=== PATIENT | male | born 1975 | race Caucasian/White ===

== ENCOUNTER 2020-02-10 14:24 | Emergency (ER) | payer MEDICAID, SELFPAY ==
[2020-02-10 14:51] VITALS: BP 183/95; PULSE 108; RESP 20; TEMP 38.8; O2SAT 95; BMI 36.9
--- NOTE | 2020-02-10 15:08 | ED_ITS ---
HPI - General Adult General Chief complaint: General Medical Stated complaint: covid testing [id number] Time Seen by Provider: 02/10/20 15:08 Source: patient Mode of arrival: ambulatory Limitations: no limitations History of Present Illness HPI narrative: Patient is concerned about COVID now feeling worse so he decided to come complaint: bodyaches cough Onset (ago): day(s) (4) Severity: moderate Quality: other (dizziness) Pain Consistency: constant Relieving factors: medication Associated symptoms: cough and fever/chills Related Data Previous Rx's Medication Instructions Recorded azithromycin 250 mg PO DAILY 5 Days #5 tab 02/10/20 Allergies Allergy/AdvReac Type Severity Reaction Status Date / Time SEAFOOD Allergy Severe ANAPHYLAXIS Uncoded 02/10/20 14:56 TUNA FISH Allergy Severe ANAPHYLAXIS, Uncoded 02/10/20 14:56 AIR BORN REACTION PER PT. Review of Systems Constitutional: Constitutional: Reports no additional constitutional complaints Eyes: Eyes: Reports no additional eye complaints ENT: Denies dizziness Cardiovascular: Cardiovascular: Reports no additional cardiovascular complaints Respiratory: Respiratory: Reports as per HPI Gastrointestinal: Gastrointestinal: Reports no additional gastrointestinal complaints Musculoskeletal: Musculoskeletal: Reports no additional musculoskeletal complaints Integumentary/Breasts: Skin/Breast: Denies rash Neurologic: Reports system reviewed and no additional complaints, except as documented, Denies dizziness and Denies Sensory deficit (Neuro) Psychiatric: Psychiatric: Denies anxiety PMF Past Medical History Medical History (Updated 02/10/20 @ 16:04 by Durga Conn MD) Asthma Diabetes Social History Social History Smoking Status: Current every day smoker Smoked in Last 30 Days: Yes Use of substances other than those prescribed or required for medical reasons: No Advance Directives: No Advance Directives Information Provided: Yes Physical Exam Vital Signs: Vital Signs: Vital Signs Temp Pulse Resp BP Pulse Ox 02/10/20 16:34 99.0 F 114 H 16 112/83 97 02/10/20 14:51 102 F H 108 H 20 183/95 H 95 Body Mass Index 36.9 Const: General: healthy appearing Nutritional Appearance: overweight Orientation/consciousness: oriented to person and patient oriented x3 Limitations: no limitations HENMT: Head: Yes normal to inspection Ears: external ears normal General nose exam: Normal external nose present Mouth: other (slight erythema to pharynx) Throat: Yes posterior oropharynx abnormal Eyes: General: appearance normal, both eyes and all related structures Neck: Other: supple Neck: Yes normal visual inspection Chest: Chest palpation & inspection: normal inspection of the chest Resp: Auscultation: clear to auscultation bilaterally Cardio: Jugular venous distension: no JVD Rate: regular rate Rhythm: regular rhythm Heart sounds: S1 normal heart sound present and S2 normal heart sound present GI: Inspection: Yes normal to inspection Palpation (GI): Soft to palpation, nontender and No hepatosplenomegaly present Auscultation: normal bowel sounds : General: Yes no CVA tenderness Back/Spine/Pelvis: Back: no CVA tenderness Skin: General skin exam: no rashes or lesions noted Neuro: General: oriented to person and patient oriented x3 Cranial nerves: Yes CN's II-XII intact bilaterally Motor exam (neuro): 5/5 motor strength present throughout Sensory Exam: No Sensory deficit (Neuro) Extrem: General: Yes normal to inspection Psych: Appearance: grossly normal Course Course Course Narrative: patient looks better will dc home Medical Decision Making [facility] Narrative Medical decision making narrative: Patient with right upper lobe consolidation will treat with azithromax Differential Diagnosis Differential Diagnosis: CoVID, pneumonia, viral illness Lab Data Labs: Lab Results 02/10/20 Range/Units 16:30 POC Glucose 115 (60-115) mg/dL Imaging Data Chest x-ray: Radiologist's impression: right upper lobe infiltrate Discharge Plan Discharge Clinical Impression: Pneumonia Qualifiers: Pneumonia type: due to unspecified organism Laterality: right Lung location: upper lobe of lung Qualified Code(s): J18.9 - Pneumonia, unspecified organism Patient Disposition: Home, Self-Care Instructions: Pneumonia (ED) Additional Instructions: tylenol and motrin should be alternating every 3 hours for fever Prescriptions: New azithromycin 250 mg tablet 250 mg PO DAILY 5 Days Qty: 5 RF: 0
--- NOTE | 2020-02-10 15:11 | XR_ITS ---
EXAMINATION: XR CHEST CLINICAL INFORMATION: Cough and fever COMPARISON: 07/02/2018 TECHNIQUE: Frontal view of the chest was obtained. FINDINGS: Radiopaque partially cannulated screw within the left clavicle. Elevated right hemidiaphragm. There is a right suprahilar airspace opacity. No pleural effusion or pneumothorax. The cardiomediastinal silhouette is within normal limits. No osseous abnormality. IMPRESSION: Right suprahilar airspace opacity is suspicious for pneumonia. Follow-up to resolution.
[2020-02-10] MEDS: Ibuprofen 800 MG TABLET PO (15:24)
[2020-02-10 16:34] VITALS: BP 112/83; PULSE 114; RESP 16; TEMP 37.2; O2SAT 97
[2020-02-10 16:40] LABS: Glucose, Whole Blood 115 mg/dL (60-115)
[2020-02-10] MEDS: Azithromycin 500 MG TABLET PO (16:59)
== END 2020-02-10 17:11 | disposition home or self-care (01) ==
PROVIDERS: Emergency Provider Emergency Medicine; PCP Family Medicine
DX: J18.9 Pneumonia, unspecified organism (principal); Z20.828 Contact with and (suspected) exposure to other viral communicable diseases; E11.9 Type 2 diabetes mellitus without complications; J45.909 Unspecified asthma, uncomplicated; F17.200 Nicotine dependence, unspecified, uncomplicated
CPT/HCPCS: 71045; 82947; 87635; 99283; 99284

== ENCOUNTER 2020-08-03 15:32 | Outpatient (REF) | payer MEDICAID, SELFPAY | END 2020-08-03 15:33 | disposition home or self-care (01) | LOC: HO.LAB 15:32 | PROVIDERS: Visit Provider Internal Medicine | DX: Z20.822 Contact with and (suspected) exposure to COVID-19 (principal) | CPT/HCPCS: C9803; U0003; U0005 ==

== ENCOUNTER 2020-10-01 12:18 | Emergency (ER) | payer MEDICAID, SELFPAY ==
--- NOTE | ~2020-10-01 | XR_ITS ---
EXAMINATION: XR KNEE, RIGHT CLINICAL INFORMATION: No trauma. Pain COMPARISON: Right knee 12/16/2014 TECHNIQUE: Four views of the right knee. FINDINGS: The tricompartment joint space is maintained normal. No visible acute fracture, dislocation or subluxation seen. The soft tissues are normal. XR/XR knee RT 2V IMPRESSION: Unremarkable right knee exam.
--- NOTE | ~2020-10-01 | US_ITS ---
EXAMINATION: US VENOUS ULTRASOUND WITH DOPPLER LOWER EXTREMITY, RIGHT CLINICAL INFORMATION: Pain and swelling COMPARISON: None TECHNIQUE: Ultrasound of the deep veins is performed from the hip to the calf with compression sonography and color and pulse Doppler assessment. Spectral analysis with color-flow imaging is performed. FINDINGS: There is normal venous compression and respiratory variation and augmented flow. The visualized common femoral vein, superficial femoral vein, profunda femoral vein, popliteal vein, and the trifurcation region shows no evidence of deep venous thrombosis. There is no significant popliteal fossa cyst. If the patient's symptoms persist, followup ultrasound in 5 days 7 days might be of value to exclude proximal propagation from a non-visualized calf vein. US/US venous duplex LE RT IMPRESSION: No DVT demonstrated in the right lower extremity.
[2020-10-01 12:41] VITALS: BP 163/87; PULSE 100; RESP 20; TEMP 36.5; O2SAT 95; BMI 39.0
--- NOTE | 2020-10-01 14:14 | ED_ITS ---
HPI - Extremity Problem General Chief complaint: Extremity Problem Stated complaint: right leg swollen Time Seen by Provider: 10/01/20 14:02 Source: patient Mode of arrival: ambulatory Limitations: no limitations History of Present Illness HPI Narrative: 44-year-old male previously healthy here with complaints of right leg swelling and pain. Patient tells me he has noticed for the last 2 days that he has had increasing pain over the knee and over the right calf with increasing swelling. He denies any injury or trauma. He tells me that he has had issues with his left knee for many years and because of this he feels like he has compensated with bearing more weight on his right knee. He denies any fevers, chills, redness. MD Complaint: extremity pain and extremity swelling Related Data Previous Rx's Medication Instructions Recorded azithromycin 250 mg PO DAILY 5 Days #5 tab 02/10/20 cyclobenzaprine 10 mg PO TID PRN #10 tab 10/01/20 naproxen 500 mg PO BID PRN #20 tab 10/01/20 Allergies Allergy/AdvReac Type Severity Reaction Status Date / Time SEAFOOD Allergy Severe ANAPHYLAXIS Uncoded 02/10/20 14:56 TUNA FISH Allergy Severe ANAPHYLAXIS, Uncoded 02/10/20 14:56 AIR BORN REACTION PER PT. Review of Systems 2 Review of Systems: Yes all other systems are reviewed and are negative Constitutional: Constitutional: Reports no additional constitutional complaints, Denies body ache(s), Denies chills, Denies fever(s), Denies headache(s) and Denies weakness Eyes: Eyes: Reports no additional eye complaints and Denies change in vision ENT: Reports system reviewed and no additional complaints, except as doc umented, Denies dizziness, Denies headache(s), Denies nasal congestion, Denies nasal discharge and Denies neck pain Cardiovascular: Cardiovascular: Reports no additional cardiovascular complaints, Denies chest pain, Reports leg edema and Denies dyspnea Respiratory: Respiratory: Reports no additional respiratory complaints, Denies cough and Denies dyspnea Gastrointestinal: Gastrointestinal: Reports no additional gastrointestinal complaints, Denies abdominal pain, Denies diarrhea, Denies nausea and Denies vomiting Genitourinary: Genitourinary: Denies urinary incontinence Musculoskeletal: Musculoskeletal: Reports no additional musculoskeletal complaints, Denies back pain, Reports arthralgias, Reports joint swelling, Denies neck pain, Denies numbness and Denies tingling Integumentary/Breasts: Skin/Breast: Reports system reviewed and no additional complaints, except as docu and Denies rash Neurologic: Reports system reviewed and no additional complaints, except as documented, Denies Abnormal speech present, Denies dizziness, Denies headache(s), Denies numbness, Denies tingling and Denies weakness PMFSH Past Medical History Attestation statement: The following information was validated with the patient. Source: old records reviewed and nursing notes reviewed Medical History Asthma Diabetes Social History Social History Advance Directives: Yes Advance Directives Information Provided: Yes Advance Directives on File: No Physical Exam Vital Signs: Vital Signs: Last Vital Signs Temp 97.7 F 10/01/20 12:41 Pulse 100 10/01/20 12:41 Resp 20 10/01/20 12:41 BP 163/87 H 10/01/20 12:41 Pulse Ox 95 10/01/20 12:41 Body Mass Index 39.0 Const: General: cooperative, healthy appearing, comfortable and no acute distress Orientation/consciousness: patient oriented x3 Limitations: no limitations HENMT: Head: Yes normal to inspection Ears: hearing grossly normal bilaterally General nose exam: Normal external nose present Face and sinus: Yes normal facial exam Mouth: Normal oral and palatal mucosa present Throat: Yes posterior oropharynx normal Eyes: General: appearance normal, both eyes and all related structures Pupils: Equal, round and reactive pupils present Neck: Neck: Yes normal visual inspection Chest: Chest palpation & inspection: normal inspection of the chest Resp: Effort & Inspection: normal respiratory effort Auscultation: clear to auscultation bilaterally Cardio: Rate: regular rate Rhythm: regular rhythm Peripheral pulses: Peripheral pulses 2+ throughout GI: Inspection: Yes normal to inspection Palpation (GI): Soft to palpation and nontender Auscultation: normal bowel sounds Back/Spine/Pelvis: Thoracic/Lumbar Spine: thoracic and lumbar spine normal to inspection Skin: General skin exam: no rashes or lesions noted Neuro: General: patient oriented x3, no focal motor deficits and normal sensation to monofilament Cranial nerves: Yes Equal, round and reactive pupils present Cognition (Neuro): normal cognition Speech: No Abnormal speech present Gait exam (Neuro): Normal gait present Motor exam (neuro): 5/5 motor strength present throughout Extrem: Other: Patient has mild 1+ nonpitting edema to the right lower extremi ty. There is some tenderness to the right posterior calf. There is also tenderness to the right anterior knee. No appreciated erythema or warmth to the right lower extremity. Pain with flexion and extension of the knee but the patient is able to do this independently. No appreciable ligamental laxity. No posterior knee pain Course Course Course Narrative: 44-year-old male here with right lower extremity swelling and pain for the last 2 days with no reports of injury or trauma. Will need ultrasound to rule out DVT, x-ray of the right knee, labs 1600-ultrasound negative for DVT. Labs are unremarkable. X-ray of the right knee shows no bony abnormality. Patient tells me that he has had chronic right knee pain for quite some time as he compensates with the right leg due to left knee pain which is chronic. He has had several ACL repairs in the right knee and has had multiple sprains. We discussed that he may have restrained his knee and that some of the swelling may be dependent edema. Instructed him on rice, limiting weight-bearing, following up with orthopedics as needed. Reviewed worrisome signs and symptoms and when to return to the emergency department. Comfortable discharge home Procedures Procedure Narrative Procedure Narrative: Drake wrap right knee Crutches MDM - Extremity (Nontraumatic) MDM Narrative Medical decision making narrative: DVT, knee ligament sprain, cellulitis Medical Records Attestation: I reviewed the patient's medical records. Lab Data Attestation: I reviewed the patient's lab results. Result diagrams: 10/01/20 15:07 10/01/20 15:07 Labs: Lab Results 10/01/20 10/01/20 10/01/20 Range/Units 15:07 15:07 15:07 WBC 9.5 (4.8-10.8) X10*3/uL RBC 4.53 L (4.60-5.80) X10*6/uL Hgb 12.8 L (14.0-18.0) g/dl Hct 39.3 L (42-52) % MCV 86.8 (80-98) fL MCH 28.3 (27.0-33.0) pg MCHC 32.6 (31.0-36.0) g/dl RDW 13.4 (11.0-16.0) % Plt Count 325 (160-400) X10*3/uL MPV 9.2 L (9.4-12.4) fL Immature Gran % (Auto) 0.6 H (0.0-0.4) % Neut % (Auto) 64.7 (45-73) % Lymph % (Auto) 20.4 (20-40) % Taney % (Auto) 7.9 (2-11) % Eos % (Auto) 6.0 H (0-4) % Baso % (Auto) 0.4 (0-2) % Lymph # (Auto) 2.0 (1.2-4.9) X10*3/uL Taney # (Auto) 0.8 (0.1-1.2) X10*3/uL Eos # (Auto) 0.6 H (0.0-0.4) X10*3/uL Baso # (Auto) 0.0 (0.0-0.2) X10*3/uL Abs Immat Gran (auto) 0.06 H (0.00-0.03) X10*3/uL Absolute Neuts (auto) 6.2 (2.0-8.3) X10*3/uL Absolute Nucleated RBC 0.000 (0.0-0.012) X10*3/uL Nucleated RBC % (auto) 0.0 (0.0-0.2) /100WBC PT 11.2 (10.8-13.0) SEC INR 0.9 (0.9-1.1) Sodium 138 (135-145) mmol/L Potassium 4.2 (3.3-5.1) mmol/L Chloride 107 (96-108) mmol/L Carbon Dioxide 23 (22-29) mmol/L Anion Gap 12 (12-20) BUN 9 (9-16) mg/dL Creatinine 0.77 (0.5-1.4) mg/dL Estim Creat Clear Calc 167.9 Estimated GFR > 60 Random Glucose 86 (60-115) mg/dL Calcium 9.3 (8.4-10.2) mg/dL Total Bilirubin 0.5 (0.0-1.0) mg/dL Direct Bilirubin < 0.2 (0.0-0.5) mg/dL AST 29 (5-37) U/L ALT 36 (0-40) U/L Alkaline Phosphatase 85 (39-117) U/L Total Protein 7.3 (6.5-8.0) g/dL Albumin 4.1 (3.5-5.0) g/dL Imaging Data right knee xray: Attestation: I personally reviewed and interpreted this imaging study as follows: Radiologist's impression: EXAMINATION: XR KNEE, RIGHT CLINICAL INFORMATION: No trauma. Pain COMPARISON: Right knee 12/16/2014 TECHNIQUE: Four views of the right knee. FINDINGS: The tricompartment joint space is maintained normal. No visible acute fracture, dislocation or subluxation seen. The soft tissues are normal. XR/XR knee RT 2V IMPRESSION: Unremarkable right knee exam. Venous US: Attestation: I personally reviewed and interpreted this imaging study as follows: Radiologist's impression: [address] [id number] ReportSigned Patient: Dejah Rivas#: [id number]: 1975Acct:[id number]/Sex: 44 / MADM Date: 10/01/20Loc: EDMichael Dr: Ordering Physician: KELSY ANGELES NP Date of Service: 10/01/20 Procedure(s): US venous duplex LE RT Accession Number(s): [id number] cc: KELSY ANGELES NP~ EXAMINATION: US VENOUS ULTRASOUND WITH DOPPLER LOWER EXTREMITY, RIGHT CLINICAL INFORMATION: Pain and swelling COMPARISON: None TECHNIQUE: Ultrasound of the deep veins is performed from the hip to the calf with compression sonography and color and pulse Doppler assessment. Spectral analysis with color-flow imaging is performed. FINDINGS: There is normal venous compression and respiratory variation and augmented flow. The visualized common femoral vein, superficial femoral vein, profunda femoral vein, popliteal vein, and the trifurcation region shows no evidence of deep venous thrombosis. There is no significant popliteal fossa cyst. If the patient's symptoms persist, followup ultrasound in 5 days 7 days might be of value to exclude proximal propagation from a non-visualized calf vein. US/US venous duplex LE RT IMPRESSION: No DVT demonstrated in the right lower extremity. Discharge Plan Discharge Clinical Impression: Lower extremity edema Right knee sprain Qualifiers: Encounter type: initial encounter Patient Disposition: Home, Self-Care Instructions: Knee Sprain (ED), Leg Edema (ED), Knee Pain (ED) Additional Instructions: Your ultrasound showed no evidence of a blood clot Your lab work looks good Your x-ray shows no bony abnormality. However based on your exam you likely have a ligamental sprain. We recommend icing this. Applying an Drake wrap for compression. Crutches to limit weight-bearing for few days. Prescriptions: New cyclobenzaprine 10 mg tablet 10 mg PO TID PRN (Reason: muscle spasm) Qty: 10 RF: 0 naproxen 500 mg tablet 500 mg PO BID PRN (Reason: pain) Qty: 20 RF: 0 No Action azithromycin 250 mg tablet 250 mg PO DAILY 5 Days Qty: 5 RF: 0 Referrals: Allyssa Carnes MD [Physician] - 2 days
[2020-10-01 15:14] LABS: MANUAL DIFF FLAG NO
[2020-10-01 15:16] LABS: Basophils Percent Auto 0.4 % (0-2); Eosinophils Absolute Auto 0.6 X10*3/uL (0.0-0.4); Hematocrit 39.3 % (42-52); Hemoglobin 12.8 g/dl (14.0-18.0); Imm Gran Abs Auto 0.06 X10*3/uL (0.00-0.03); Imm Gran Pct Auto 0.6 % (0.0-0.4); Lymphocytes Percent Auto 20.4 % (20-40); Mean Corpuscular HGB Conc 32.6 g/dl (31.0-36.0); Mean Corpuscular Hemoglobin 28.3 pg (27.0-33.0); Mean Corpuscular Volume 86.8 fL (80-98); Mean Platelet Volume 9.2 fL (9.4-12.4); Monocytes Absolute Auto 0.8 X10*3/uL (0.1-1.2); Monocytes Percent Auto 7.9 % (2-11); Neutrophils Absolute Auto 6.2 X10*3/uL (2.0-8.3); Neutrophils Percent Auto 64.7 % (45-73); Platelet Count 325 X10*3/uL (160-400); Red Blood Count 4.53 X10*6/uL (4.60-5.80); Red Cell Distribution Width 13.4 % (11.0-16.0); White Blood Count 9.5 X10*3/uL (4.8-10.8)
[2020-10-01 15:21] LABS: INTERNATIONAL NORM RATIO 0.9 (0.9-1.1); Prothrombin Time 11.2 SEC (10.8-13.0)
[2020-10-01] MEDS: Ketorolac Tromethamine 30 MG/ML VIAL IVPUSH (15:36)
[2020-10-01 15:44] LABS: Alanine Aminotransferase 36 U/L (0-40); Albumin Level 4.1 g/dL (3.5-5.0); Alkaline Phosphatase 85 U/L (39-117); Anion Gap 12 (12-20); Aspartate Amino Transferase 29 U/L (5-37); Bilirubin Direct < 0.2 mg/dL (0.0-0.5); Bilirubin Total 0.5 mg/dL (0.0-1.0); Blood Urea Nitrogen 9 mg/dL (9-16); Calcium 9.3 mg/dL (8.4-10.2); Carbon Dioxide 23 mmol/L (22-29); Chloride 107 mmol/L (96-108); Creatinine Clr Calc Pharmacy 167.9; Estimated Glomerular Filt Rate > 60; Glucose Random 86 mg/dL (60-115); Potassium 4.2 mmol/L (3.3-5.1); Sodium 138 mmol/L (135-145); Total Protein 7.3 g/dL (6.5-8.0)
[2020-10-01 16:39] VITALS: BP 162/92; PULSE 95; RESP 16; TEMP 36.3; O2SAT 100
== END 2020-10-01 16:41 | disposition home or self-care (01) ==
PROVIDERS: Nurse Practitioner Family; Emergency Provider Emergency Medicine Emergency Medical Services
DX: S83.90XA Sprain of unspecified site of unspecified knee, initial encounter (principal); X58.XXXA Exposure to other specified factors, initial encounter; R22.42 Localized swelling, mass and lump, left lower limb; M79.661 Pain in right lower leg; M25.561 Pain in right knee; G89.29 Other chronic pain; M25.562 Pain in left knee; E11.9 Type 2 diabetes mellitus without complications; Y93.9 Activity, unspecified; Y92.9 Unspecified place or not applicable; Y99.9 Unspecified external cause status
CPT/HCPCS: 36415; 73560; 80048; 80076; 85025; 85610; 93971; 96374; 99284; J1885

== ENCOUNTER 2020-10-06 08:20 | Outpatient (REF) | payer MEDICAID, SELFPAY | END 2020-10-06 08:21 | disposition home or self-care (01) | LOC: HO.HOSX 08:20 | PROVIDERS: Visit Provider Physician Assistant | DX: M25.561 Pain in right knee (principal); R22.9 Localized swelling, mass and lump, unspecified | CPT/HCPCS: 99202; J1040 ==

== ENCOUNTER 2020-10-26 13:51 | Outpatient (RCR) | payer MEDICAID, SELFPAY ==
--- NOTE | 2020-10-26 15:15 | MHC.PT.EP ---
[facility] [place] Office [place] Office [place] Office [address] Cynthia Price [address] [phone] F: [phone] F: [phone] F: [phone] F: [phone] Physical Therapy Plan of Care Date of Evaluation: Date of Surgery: Diagnosis: pain in R knee Assessment: 45 y/o male referred to PT with pain in R knee. Pt reports pain and difficulty with walking > 5 min, standing, stairs, and lifting. Examination shows decreased R knee/hip/core strength, lateral patella tilt, increased swelling in R LE around knee joint line and distal leg, and TTP pes anserine. S/s consistent with overuse injury of HS and hip adductors. Recommend PT 2x/week for 5 weeks to address impairments, implement HEP and optimize functional mobility. Frequency and Duration: The patient will be seen 2x/week for 5 weeks Short Term Goals: 2 weeks: 1. I with HEP 2. Pt will demonstrate increase in HS strength B by 1 MMT score Snf Goals: 4 weeks: 1. I with HEP and self-management of sx 2. Pt will be able to ambulate >45 min with <3/10 pain 3. Pt will be able to ascend and descend a flight of stairs with <3/10 pain Treatment Plan: Modalities to reduce pain, spasms and effusion. Manual therapy to restore motion and function. Therapeutic exercise to improve strength and flexibility. Neuromuscular re-education for posture and balance. Therapeutic activities to return to functional activities of daily living. Electronically signed by: Christy Richards PT Please sign and return to therapist. Thank you for your referral.
--- NOTE | 2020-11-28 16:07 | MHC.PT.DC ---
[facility] [place] Office [place] Office [place] Office [address] Cynthia Price [address] [facility] [phone] F: [phone] F: [phone] F: [phone] F: [phone] Physical Therapy Discharge Report Diagnosis: pain in R knee Date of Surgery: Date of Evaluation: 10/26/20 Date of Discharge: 11/28/20 Treatments to Date: 1 Cancellations to Date: 4 No Shows to Date: 4 Discharge Status: Visit Non-compliance Discharge Summary: D/c secondary to noncompliance Electronically signed by: Christy Richards PT Please sign and return to therapist. Thank you for your referral.
== END 2020-11-28 16:07 | disposition home or self-care (01) ==
LOC: HO.PT 13:51
PROVIDERS: PCP Family Medicine; Visit Provider Physician Assistant
DX: M25.561 Pain in right knee (principal)
CPT/HCPCS: 97140; 97161

== ENCOUNTER 2021-09-06 10:42 | Emergency (ER) | payer MEDICAID, SELFPAY ==
--- NOTE | ~2021-09-06 | XR_ITS ---
EXAMINATION: XR ELBOW, LEFT CLINICAL INFORMATION: Left elbow pain COMPARISON: None TECHNIQUE: AP, lateral, and oblique views of the left elbow. FINDINGS: The bones and soft tissues are normal. No fracture or joint effusion. Alignment is anatomic. Joint spaces are maintained. XR/XR elbow LT 2V IMPRESSION: Normal left elbow.
[2021-09-06 11:54] VITALS: BP 153/83; PULSE 100; RESP 20; TEMP 36.6; O2SAT 97; BMI 38.9
--- NOTE | 2021-09-06 13:33 | ED_ITS ---
HPI - Extremity Problem General Chief complaint: Extremity Injury, Upper Stated complaint: left elbow injury Time Seen by Provider: 09/06/21 13:31 Source: patient Mode of arrival: ambulatory Limitations: no limitations History of Present Illness HPI Narrative: Patient presents emergency department for evaluation of left elbow pain. He reports that yesterday he was lifting multiple bottles of detergent at a time while he was helping a friend move things. He states that soon afterwards he developed pain to the left elbow. Denies any numbness or tingling to the arm or hand. Denies any weakness. Denies any prior injury to this elbow. He is taking ibuprofen 800 mg for olecranon bursitis of the right elbow, states that the ibuprofen has been helping his left elbow pain as well. He contacted his doctor today to have it evaluated and he was advised to come to the emergency department to make sure that there was nothing broken or dislocated. MD Complaint: extremity pain Onset (ago): day(s) Pain Consistency: intermittent Location: left Quality: aching Radiation: proximal Relieving factors: immobilization and medication Exacerbating factors: range of motion Associated symptoms: denies other symptoms Related Data Previous Rx's Medication Instructions Recorded azithromycin 250 mg tablet 250 mg PO DAILY 5 Days #5 tab 02/10/20 cyclobenzaprine 10 mg tablet 10 mg PO TID PRN #10 tab 10/01/20 naproxen 500 mg tablet 500 mg PO BID PRN #20 tab 10/01/20 Allergies Allergy/AdvReac Type Severity Reaction Status Date / Time SEAFOOD Allergy Severe ANAPHYLAXIS Uncoded 02/10/20 14:56 TUNA FISH Allergy Severe ANAPHYLAXIS, Uncoded 02/10/20 14:56 AIR BORN REACTION PER PT. Review of Systems Review of Systems: Musculoskeletal: Positive elbow pain. Neurological: No numbness. No weakness. No loss of sensation. Yes all other systems are reviewed and are negative PMFSH Past Medical History Attestation statement: The following information was validated with the patient. Source: old records reviewed Medical History Asthma Diabetes Social History Social History Advance Directives: No Advance Directives Information Provided: No Current occupational status: unemployed Current occupation: rt handed Physical Exam Vital Signs: Vital Signs: Last Vital Signs Temp 98 F 05/12/22 11:54 Pulse 100 09/06/21 11:54 Resp 20 09/06/21 11:54 BP 153/83 H 09/06/21 11:54 Pulse Ox 97 09/06/21 11:54 BMI result Body Mass Index 38.9 Appearance: Alert.?Oriented to person, place and time. No acute distress.?Normal affect. Eyes: Pupils equal, round and reactive to light.? ENT: Pharynx normal.?? Neck: Normal inspection.? Neck supple.?? CVS: Heart sounds normal. Normal heart rate and rhythm.? Pulses normal.?? Respiratory: No respiratory distress.? Lung sounds clear to auscultation bilaterally?? Abdomen: Soft and non-tender. Skin: Skin warm and dry.? Normal skin color.? Extremities: No lower extremity edema. Left elbow with no erythema, warmth, obvious deformity. Left biceps appears intact, no deformity. Full AROM to the left shoulder elbow and wrist. Neuro: Moves all extremities spontaneously. Sensation intact bilaterally. CN II- XII intact. No focal neuro deficits. Ambulates with normal steady gait. Course Course Course Narrative: Patient is a 45-year-old male presenting for evaluation of left elbow pain after heavy lifting yesterday. Reports pain presents at the medial elbow and then radiates diffusely throughout the rest of the elbow. Patient has full AROM to the left shoulder elbow and wrist. Neurovascularly intact distally. No neck pain or stiffness. Able to supinate the forearm appropriately. There is no swelling or ecchymosis present. There is no weakness. Not consistent with biceps tendon rupture.X- ray obtained reveals no acute abnormalities. Discussed these findings with patient. Advised cannot completely exclude ligamentous injury, x-ray imaging is not the preferred method for this. At this time pain most consistent with tendinitis, advised to continue using ibuprofen as he is currently prescribed, resting of the arm, compression, avoid heavy lifting, gentle stretching exercises. Advised to follow-up with his primary care provider should his pain persist over the next week or so. Discussed reasons to return back to the emergency department. All questions were answered. MDM - Extremity (Nontraumatic) Medical Records Attestation: I reviewed the patient's medical records. Imaging Data elbow XR: Radiologist's impression: FINDINGS: The bones and soft tissues are normal. No fracture or joint effusion. Alignment is anatomic. Joint spaces are maintained.? XR/XR elbow LT 2V IMPRESSION: Normal left elbow. Discharge Plan Discharge Clinical Impression: Tendinitis Patient Disposition: Home, Self-Care Instructions: Tendinitis (ED) Additional Instructions: Continue taking ibuprofen as needed for your pain. Follow-up with your primary care doctor as needed for persistent pain. Return to the emergency department with any new or worsening symptoms or concerns. Prescriptions: No Action azithromycin 250 mg tablet 250 mg PO DAILY 5 Days Qty: 5 0RF cyclobenzaprine 10 mg tablet 10 mg PO TID PRN (Reason: muscle spasm) Qty: 10 0RF naproxen 500 mg tablet 500 mg PO BID PRN (Reason: pain) Qty: 20 0RF Interventions: ED Discharge Assessment Last Done: 09/06/21 14:30 Discharge Date/Time: 09/06/21 14:32
== END 2021-09-06 14:32 | disposition home or self-care (01) ==
LOC: HO.ED 13:55
PROVIDERS: Emergency Provider Emergency Medicine; PCP Family Medicine
DX: M77.8 Other enthesopathies, not elsewhere classified (principal); E11.9 Type 2 diabetes mellitus without complications; J45.909 Unspecified asthma, uncomplicated
CPT/HCPCS: 73070; 99283

== ENCOUNTER 2021-12-07 12:37 | Emergency (ER) | payer OTHER, MEDICAID, SELFPAY ==
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
[2021-12-07 14:09] VITALS: BP 133/83; PULSE 99; RESP 16; TEMP 36.2; O2SAT 99; BMI 35.9
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
[2021-12-07] MEDS: Ketorolac Tromethamine 30 MG/ML VIAL IM (16:08)
== END 2021-12-07 17:14 | disposition home or self-care (01) ==
PROVIDERS: Emergency Provider Student in an Organized Health Care Education/Training Program; PCP Family Medicine
DX: S39.012A Strain of muscle, fascia and tendon of lower back, initial encounter (principal); S16.1XXA Strain of muscle, fascia and tendon at neck level, initial encounter; V43.51XA Car driver injured in collision with sport utility vehicle in traffic accident, initial encounter; E11.9 Type 2 diabetes mellitus without complications; Y93.89 Activity, other specified; Y92.411 Interstate highway as the place of occurrence of the external cause; Y99.9 Unspecified external cause status
CPT/HCPCS: 70450; 72125; 73030; 96372; 99283; 99284; J1885

== ENCOUNTER 2021-12-21 17:03 | Emergency (ER) | payer OTHER, MEDICAID, SELFPAY | END 2021-12-21 20:41 | disposition left against medical advice (07) | PROVIDERS: Emergency Provider Emergency Medicine; PCP Family Medicine | DX: H57.13 Ocular pain, bilateral (principal) ==

== ENCOUNTER 2022-02-05 13:24 | Outpatient (REF) | payer OTHER, MEDICAID, SELFPAY ==
--- NOTE | ~2022-02-05 | XR_ITS ---
EXAMINATION: XR LUMBAR SPINE XR PELVIS CLINICAL INFORMATION: Low back pain with right-sided sciatica. COMPARISON: None. TECHNIQUE: AP pelvis one view. Lumbar spine 5 views. FINDINGS: AP PELVIS: There is normal symmetry of bilateral hip joints and SI joints. No visible acute fracture, dislocation or subluxation seen. The soft tissues are normal. LUMBAR SPINE: There is normal lumbar lordosis. The vertebral heights are normal. There is minimal loss of L2-L3 and L3-L4 disc heights with mild ventral spondylosis at the L2-L3 disc level. There is no pars defect or listhesis or any evidence of listhesis. The facet joints are symmetric and normal. No acute fracture, lytic or sclerotic process seen. XR/XR lumbar spine 4V min IMPRESSION: Unremarkable AP pelvis. Mild loss of disc height L2-L3 and L3-L4 disc levels with mild ventral spondylosis L2-L3 disc level.
--- NOTE | ~2022-02-05 | XR_ITS ---
EXAMINATION: XR LUMBAR SPINE XR PELVIS CLINICAL INFORMATION: Low back pain with right-sided sciatica. COMPARISON: None. TECHNIQUE: AP pelvis one view. Lumbar spine 5 views. FINDINGS: AP PELVIS: There is normal symmetry of bilateral hip joints and SI joints. No visible acute fracture, dislocation or subluxation seen. The soft tissues are normal. LUMBAR SPINE: There is normal lumbar lordosis. The vertebral heights are normal. There is minimal loss of L2-L3 and L3-L4 disc heights with mild ventral spondylosis at the L2-L3 disc level. There is no pars defect or listhesis or any evidence of listhesis. The facet joints are symmetric and normal. No acute fracture, lytic or sclerotic process seen. XR/XR pelvis 1-2V IMPRESSION: Unremarkable AP pelvis. Mild loss of disc height L2-L3 and L3-L4 disc levels with mild ventral spondylosis L2-L3 disc level.
== END 2022-02-05 13:25 | disposition home or self-care (01) ==
LOC: HO.XRAY 13:24
PROVIDERS: PCP Family Medicine; Visit Provider Student in an Organized Health Care Education/Training Program
DX: M54.50 Low back pain, unspecified (principal)
CPT/HCPCS: 72110; 72170

== ENCOUNTER 2023-09-24 22:18 | Emergency (ER) | payer OTHER, SELFPAY ==
[2023-09-24 22:21] VITALS: BP 151/94; PULSE 104; RESP 18; TEMP 36.3; O2SAT 96; BMI 33.3
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
[2023-09-25 00:27] VITALS: BP 148/90; PULSE 90; RESP 18; TEMP 36.6; O2SAT 96
--- OUTSIDE RECORDS SUMMARY | 2023-09-25 00:27 | XMS_ITS | Continuity of Care Document ---
Author Organization [facility] Address [address] [place] [address]- Care Team Providers Care Coal Unloader Name Role Phone Margarito Berger MD Primary Care Physician Encounter [facility] [place] Date(s): 03/12/23 - 04/11/23 [facility] [address] [place] [address]- Allergies, Adverse Reactions, Alerts No Known Medication Allergies Substance Reaction Severity Status Seafood Active Other Food Allergy tuna fish Active Immunizations Given and Recorded Vaccine Date Status Refusal Reason SARS-CoV-2 (COVID-19) mRNA BNT-162b2 vac 05/14/21 Recorded SARS-CoV-2 (COVID-19) mRNA BNT-162b2 vac 09/17/20 Recorded SARS-CoV-2 (COVID-19) mRNA BNT-162b2 vac 08/27/20 Recorded tetanus/diphtheria/pertussis, acel(Tdap) 01/23/11 Given Medications cyclobenzaprine 10 mg oral tablet 10 mg, 1, tablet, By Mouth, 3 times a day, PRN spasms, # 60 tablet, Refills 0, Tot. Refills 0, Maintenance, 03/24/23 12:45:00 EST, Route to Pharmacy Electronically, [facility] #[id number], Partial fill upon patient request if the prescription is... Start Date: 03/24/23 Status: Ordered diclofenac sodium 75 mg oral delayed release tablet See Instructions, TAKE 1 TABLET BY MOUTH TWICE DAILY WITH FOOD DIRECTED, # 60 tablet, 1 Refills,03/11/23 16:29:00 EST, [facility] #[id number], 176.8, cm, 01/24/23 10:59:00 EDT, Height, 127.4, kg, 05/17/22 4:58:00 EST, Dry Weight Start Date: 03/11/23 Status: Ordered doxycycline hyclate 100 mg oral tablet See Instructions, TAKE 1 TABLET BY MOUTH TWICE DAILY FOR 14 DAYS, # 28 tablet, 0 Refills, Maintenance, 04/10/23 14:15:00 EST, [facility] #[id number], 176.8, cm, 01/24/23 10:59:00 EDT, Height, 127.4, kg, 05/17/22 4:58:00 EST, Dry Weight Start Date: 04/10/23 Status: Ordered EpiPen 2-Michael 0.3 mg injectable kit = 0.3 mg, Intramuscular, Once, PRN severe allergic reaction, may repeat if necessary, # 2 each, 0 Refills, Soft Stop, 01/24/23 12:05:00 EDT, [facility] #[id number], 176.8, cm, 01/24/23 10:59:00 EDT, Height, 127.4, kg, 05/17/22 4:58:00 EST, Dry We... Start Date: 01/24/23 Status: Ordered hydrOXYzine hydrochloride 50 mg oral tablet 1 tablet = 50 mg, By Mouth, 3 times a day, # 90 tablet, 1 Refills, Maintenance, 02/12/23 8:08:00 EDT, [facility] #[id number], 176.8, cm, 01/24/23 10:59:00 EDT, Height, 127.4, kg, 05/17/22 4:58:00 EST, Dry Weight Start Date: 02/12/23 Status: Ordered losartan 50 mg oral tablet 1 tablet, By Mouth, Daily, # 90 tablet, 1 Refills, Maintenance, 11/28/22 21:33:00 EDT, [facility] #[id number], 176.8, cm, 11/05/22 11:22:00 EDT, Height, 127.4, kg, 05/17/22 4:58:00 EST, Dry Weight Start Date: 11/28/22 Status: Ordered mupirocin 2% topical ointment See Instructions, APPLY TOPICALLY TO THE AFFECTED AREA THREE TIMES DAILY FOR 14 DAYS, # 22 Gm, 0 Refills, Maintenance, 03/27/23 8:33:00 EST, [facility] #[id number], 10, APPLY TOPICALLY TO THE AFFECTED AREA THREE TIMES DAILY FOR 14 DAYS, 176.8, cm... Start Date: 03/27/23 Status: Ordered oxyCODONE 5 mg oral tablet 5 mg, 1, tablet, By Mouth, Every 8 hours, PRN, mass pat ok, ok for less. TAKE ONLY NEEDED, # 45 tablet, Refills 0, Tot. Refills 0, Maintenance, Pain , Moderate, 04/09/23 7:37:00 EST, Route to Pharmacy Electronically, [facility] #[id number], Pa... Start Date: 04/09/23 Stop Date: 04/24/23 Status: Ordered predniSONE 20 mg oral tablet See Instructions, 2 tablets By Mouth Daily for 5 days and then 1 tablet by mouth daily for 5 days, # 15 tablet, 0 Refills, Soft Stop, 01/08/23 16:53:00 EDT, Tablet, [email or web address] #[id number], Partial fill upon patient request if the prescription is... Start Date: 01/08/23 Status: Ordered Ventolin HFA 108 mcg/inh inhalation aerosol with adapter 2 puffs, Inhalation, Every 6 hours, # 8.5 Gm, 6 Refills, Maintenance, 12/23/22 11:39:00 EDT, [facility] #[id number], 176.8, cm, 12/23/22 11:25:00 EDT, Height, 127.4, kg, 05/17/22 4:58:00 EST, Dry Weight Start Date: 12/23/22 Stop Date: 07/21/23 Status: Ordered Problem List Condition Confirmation Course Effective Dates Status Health St atus Informant Adjustment disorder Confirmed Active Chronic knee pain Confirmed Active Chronic low back pain Confirmed Active Daytime sleepiness Confirmed Active Hypertension Confirmed Active Morbid obesity Confirmed Active SKIP - Obstructive sleep apnea Confirmed Active Prediabetes Confirmed Active Severe obesity (BMI 35.0-39.9) with comorbidity Confirmed Active Social History Social History Type Response Smoking Status 5-9 cigarettes (betw een 1/4 to 1/2 pack)/day in last 30 days; Tobacco use times per day: 7; entered on: 12/31/18 Sex Patient Care team information Care Team Personnel Name: Margarito Berger MD Position: [facility] Physician - Primary Care Member Role: PCP Address: Address: [address] [place] [id number]- Name: Bhumika Castillo RN Position: [facility] SN RN Member Role: Primary Care Nurse Name: Jaja Arshad RN Position: [facility] RN Member Role: Primary Care Nurse Name: Ludwin Butcher RN Position: [facility] RN Member Role: Primary Care Nurse Care Team Related Persons Name: FUENTESGARRETT GATICA Address: home [address] [place] [address] Name: MARLO REINOSO Name: PT STS, NONE Name: EFFIE RICKETTS Name: RANDALL RICKETTS
--- OUTSIDE RECORDS SUMMARY | 2023-09-25 00:27 | XMS_ITS | Continuity of Care Document ---
Author Organization [facility] Address [address] [place] [address]- Care Team Providers Care External Grinder Tool Name Role Phone Ab FRAGA, Margarito Dolan Primary Care Physician Encounter [facility] [place] Date(s): 02/08/22 - 03/10/22 [facility] [address] [place] [address]- Allergies, Adverse Reactions, Alerts No Known Medication [...] tablet, By Mouth, 3 times a day, PRN, # 60 tablet, Refills 1, Tot. Refills 1, Maintenance, Pain , Moderate, 03/07/22 14:33:00 EST, Route to Pharmacy Electronically, [facility] #[id number], Partial fill upon patient request if the prescr... Start Date: 03/07/22 Status: Ordered EpiPen 2-Michael 0.3 mg injectable kit = 0.3 mg, Intramuscular, Once, PRN severe allergic reaction, may repeat if necessary, # 2 each, 0 Refills, Soft Stop, 11/06/20 13:52:00 EDT, [facility] #[id number], 176.8, cm, 11/06/20 13:38:00 EDT, Height, 140.3, kg, 11/06/20 13:38:00 EDT, Dry W... Start Date: 11/06/20 Status: Ordered hydrOXYzine hydrochloride 50 mg oral tablet See Instructions, TAKE 1 TABLET BY MOUTH FOUR TIMES DAILY FOR 12 DAYS NEEDED FOR ANXIETY, # 48 tablet, 0 Refills, Maintenance, 01/15/22 17:07:00 EDT, [facility] #[id number], 176.8, cm, 01/04/22 15:55:00 EDT, Height, 123.4, kg, 10/12/21 15:16:0... Start Date: 01/15/22 Status: Ordered hydrOXYzine hydrochloride 50 mg oral tablet See Instructions, TAKE 1 TABLET BY MOUTH FOUR TIMES DAILY FOR 12 DAYS NEEDED FOR ANXIETY, # 48 tablet, 0 Refills, Maintenance, 02/28/22 11:58:00 EDT, [facility] #[id number], 176.8, cm, 02/28/22 10:47:00 EDT, Height, 123.4, kg, 10/12/21 15:16:0... Start Date: 02/28/22 Status: Ordered ibuprofen 800 mg oral tablet 1, tablet, By Mouth, 3 times a day, PRN, TAKE WITH FOOD OR MILK., # 90 tablet, Refills 5, Maintenance, NEEDED FOR PAIN(, 01/04/22 10:09:00 EDT, Route to Pharmacy Electronically, [facility] #[id number], 176.8, cm, 12/14/21 16:29:00 EDT, Height,... Start Date: 01/04/22 Status: Ordered Inhaler Spacer Inhaler Spacer , See Instructions, # 1 each, Refills 0, Tot. Refills 0, Maintenance, For use with Albuterol inhaler, as needed, 01/15/21 16:35:00 EDT, Supply, 176.8, cm, 01/08/21 12:47:00 EDT, Height, 140.3, kg, 11/06/20 13:38:00 EDT, Dry Weight Start Date: 01/15/21 Status: Ordered Left Wrist Brace w/ Thumb Left Wrist Brace w/ Thumb, See Instructions, # 1 each, Refills 0, Tot. Refills 0, Maintenance, For daily use as directed Size to fit, Adult Large Length of need: 99 ICD10: M25.532, M65.4, 08/06/21 16:13:00 EDT, Supply, 176.8, cm, 08/06/21 15:06:00... Start Date: 08/06/21 Status: Ordered losartan 50 mg oral tablet 1 tablet, By Mouth, Daily, # 30 tablet, 5 Refills, [facility] #[id number], 176.8, cm, 11/05/2214:43:00 EDT, Height, 123.4, kg, 10/12/21 15:16:00 EDT, Dry Weight Start Date: 11/13/21 Status: Ordered magnesium oxide 250 mg oral tablet See Instructions, TAKE 1 TABLET BY MOUTH DAILY AT BEDTIME FOR 14 DAYS, # 14 tablet, 0 Refills, Maintenance, 02/08/22 13:01:00 EDT, [facility] #[id number], 176.8, cm, 01/04/22 15:55:00 EDT, Height, 123.4, kg, 10/12/21 15:16:00 EDT, Dry Weight Start Date: 02/08/22 Status: Ordered magnesium oxide 250 mg oral tablet See Instructions, TAKE 1 TABLET BY MOUTH DAILY AT BEDTIME FOR 14 DAYS, # 14 tablet, 0 Refills, Maintenance, 01/04/22 15:54:00 EDT, [facility] #[id number], 176.8, cm, 12/14/21 16:29:00 EDT, Height, 123.4, kg, 10/12/21 15:16:00 EDT, Dry Weight Start Date: 01/04/22 Status: Ordered metFORMIN 750 mg oral tablet, extended release 1 tablet, By Mouth, Daily, # 60 tablet, 5 Refills, [facility] #[id number], 176.8, cm, 02/02/2116:07:00 EDT, Height, 140.3, kg, 11/06/20 13:38:00 EDT, Dry Weight Start Date: 03/30/21 Status: Ordered oxyCODONE 5 mg oral tablet 5 mg, 1, tablet, By Mouth, Every 8 hours, PRN, mass pat ok, ok for less. Take only as needed., # 45tablet, Refills 0, Tot. Refills 0, Maintenance, Pain , Moderate, 02/28/22 11:58:00 EDT, Route to Pharmacy Electronically, [facility] #[id number],... Start Date: 02/28/22 Stop Date: 03/30/22 Status: Ordered oxyCODONE 5 mg oral tablet 5 mg, 1, tablet, By Mouth, Every 8 hours, PRN, mass pat ok, ok for less. Take only as needed., # 45tablet, Refills 0, Tot. Refills 0, Maintenance, Pain , Moderate, 09/28/21 17:08:00 EDT, Route to Pharmacy Electronically, [facility] #[id number],... Start Date: 09/28/21 Stop Date: 10/13/21 Status: Ordered oxyCODONE 5 mg oral tablet 5 mg, 1, tablet, By Mouth, Every 8 hours, PRN, for 30 days, mass pat ok, ok for less. Take only as needed., # 45 tablet, Refills 0, Tot. Refills 0, Hard Stop 03/16/22 9:20:00 EST, Pain , Moderate, 02/14/22 9:20:00 EDT, Route to Pharmacy Electronically... Start Date: 02/14/22 Stop Date: 03/16/22 Status: Ordered phentermine 30 mg oral capsule 1 capsule = 30 mg, By Mouth, Daily in AM, for 30 days, # 30 capsule, 0 Refills, Acute 03/30/22 11:58:00 EST, 02/28/22 11:58:00 EDT, Capsule, [facility] #[id number], Partial fill upon patient request; Sent to pharmacy for [facility]- Effective measure,... Start Date: 02/28/22 Stop Date: 03/30/22 Status: Ordered phentermine 30 mg oral capsule 1 capsule = 30 mg, By Mouth, Daily in AM, for 30 days, # 30 capsule, 0 Refills, Acute 03/23/22 8:14:00 EST, 02/21/22 8:14:00 EDT, Capsule, [facility] #[id number], Partial fill upon patient request; Sent to pharmacy for [facility]- Effective measure... Start Date: 02/21/22 Stop Date: 03/23/22 Status: Ordered ProAir HFA 90 mcg/inh inhalation aerosol with adapter 2, puffs, Inhalation, Every 6 hours, PRN, # 8.5 Gm, Refills 5, Route to Pharmacy Electronically, [id number], [facility] #[id number], 176.8, cm, 10/12/21 15:16:00 EDT, Height, 123.4, kg, 10/12/21 15:16:00 EDT, Dry Weight Start Date: 11/05/21 Status: Ordered triamcinolone 0.1% topical cream See Instructions, APPLY TOPICALLY TO THE AFFECTED AREA ON ARMS AND LEGS THREE TIMES DAILY. MIX WITH16 OUNCES OF EUCERIN CREAM, # 80 Gm, 0 Refills, [facility] #[id number], 14, APPLY TOPICALLY TOTHE AFFECTED AREA ON ARMS AND LEGS THREE TIMES RAMESH... Start Date: 05/18/21 Status: Ordered Problem List Condition Confirmation Course Effective Dates Status Health St atus Informant Adjustment disorder Confirmed Active Chronic knee pain Confirmed Active Chronic low back pain Confirmed Active Leg cramping Confirmed Active Daytime sleepiness Confirmed Active Hypertension Confirmed Active Morbid obesity Confirmed Active SKIP - Obstructive sleep apnea Confirmed Active Prediabetes Confirmed Active Severe obesity Confirmed Active Social History Social History Type Response Smoking Status 5-9 cigarettes (betw een 1/4 to 1/2 pack)/day in last 30 days; Tobacco use times per day: 7; entered on: 12/31/18 Sex Patient Care team information Care Team Personnel Name: Margarito Berger MD Position: [facility] Primary Care Physician Member Role: PCP Address: Address: [address] [place] [id number]- Care Team Related Persons Name: FER FUENTESEN Address: home [address] [place] [address] Name: MARLO REINOSO Name: PT STS, NONE
--- OUTSIDE RECORDS SUMMARY | 2023-09-25 00:27 | XMS_ITS | Continuity of Care Document ---
Author Organization [facility] Address [address] [place] [address]- Care Team Providers Care Sample Collector Name Role Phone Margarito Berger MD Primary Care Physician Encounter [facility] [place] Date(s): 10/31/22 - 11/30/22 [facility] [address] [place] [address]- Allergies, Adverse Reactions, Alerts No Known Medication Allergies Substance Reaction Severity Status Seafood Active Other Food Allergy tuna fish Active Immunizations Given and Recorded Vaccine Date Status Refusal Reason SARS-CoV-2 (COVID-19) mRNA BNT-162b2 vac 05/14/21 Recorded SARS-CoV-2 (COVID-19) mRNA BNT-162b2 vac 09/17/20 Recorded SARS-CoV-2 (COVID-19) mRNA BNT-162b2 vac 08/27/20 Recorded tetanus/diphtheria/pertussis, acel(Tdap) 01/23/11 Given Medications acetaminophen 325 mg oral tablet 650 mg, By Mouth, Every 6 hours, May take OTC not to exceed 3000 mg/day, Refills 0, Maintenance, 05/18/22 7:55:00 EST, Partial fill upon patient request if the prescription is for a schedule II opioid drug. Start Date: 05/18/22 Status: Ordered Aspirin Tablet 325 mg, By Mouth, 2 times a day, Refills 0, Maintenance, 05/18/22 7:55:00 EST, Partial fill upon patient request if the prescription is for a schedule II opioid drug. Start Date: 05/18/22 Status: Ordered celecoxib 200 mg oral capsule 1 capsule = 200 mg, By Mouth, Daily in AM, 0 Refills, Maintenance, 05/18/22 7:55:00 EST, Capsule, Partial fill upon patient request if the prescription is for a schedule II opioid drug. Start Date: 05/18/22 Status: Ordered cyclobenzaprine 10 mg oral tablet 10 mg, 1, tablet, By Mouth, 3 times a day, PRN spasms, # 60 tablet, Refills 0, Tot. Refills 0, Maintenance, 11/11/22 11:59:00 EDT, Route to Pharmacy Electronically, [facility] #[id number], Partial fill upon patient request if the prescription is... Start Date: 11/11/22 Status: Ordered EpiPen 2-Michael 0.3 mg injectable kit = 0.3 mg, Intramuscular, Once, PRN severe allergic reaction, may repeat if necessary, # 2 each, 0 Refills, Soft Stop, 11/06/20 13:52:00 EDT, [facility] #[id number], 176.8, cm, 11/06/20 13:38:00 EDT, Height, 140.3, kg, 11/06/20 13:38:00 EDT, Dry W... Start Date: 11/06/20 Status: Ordered hydrOXYzine hydrochloride 50 mg oral tablet 1 tablet = 50 mg, By Mouth, 3 times a day, # 60 tablet, 1 Refills, Maintenance, 10/21/22 15:31:00 EDT, [facility] #[id number], 176.8, cm, 10/11/22 16:37:00 EDT, Height, 127.4, kg, 05/17/22 4:58:00 EST, Dry Weight Start Date: 10/21/22 Status: Ordered ibuprofen 800 mg oral tablet 1, tablet, By Mouth, 3 times a day, PRN, TAKE WITH FOOD OR MILK., # 90 tablet, Refills 5, Tot. Refills 5, Maintenance, NEEDED FOR PAIN(, 08/27/22 20:18:00 EDT, Route to Pharmacy Electronically, [facility] #[id number], 176.8, cm, 05/01/22 13:41... Start Date: 08/27/22 Status: Ordered losartan 50 mg oral tablet 1 tablet, By Mouth, Daily, # 90 tablet, 1 Refills, Maintenance, 11/28/22 21:33:00 EDT, [facility] #[id number], 176.8, cm, 11/05/22 11:22:00 EDT, Height, 127.4, kg, 05/17/22 4:58:00 EST, Dry Weight Start Date: 11/28/22 Status: Ordered mupirocin 2% topical ointment 1 application, Topically, 3 times a day, for 14 days, # 22 Gm, 3 Refills, Acute 01/20/23 16:10:00 EDT, 11/25/22 16:10:00 EDT, Ointment, [facility] #[id number], Partial fill upon patient request if the prescription is for a schedule II opioid drug... Start Date: 11/25/22 Stop Date: 01/20/23 Status: Ordered oxyCODONE 5 mg oral tablet 5 mg, 1, tablet, By Mouth, Every 8 hours, PRN, mass pat ok, ok for less. TAKE ONLY NEEDED, # 45 tablet, Refills 0, Tot. Refills 0, Maintenance, Pain , Moderate, 11/22/22 14:29:00 EDT, Route to Pharmacy Electronically, [facility] #[id number], P... Start Date: 11/22/22 Stop Date: 12/07/22 Status: Ordered ProAir HFA 90 mcg/inh inhalation aerosol with adapter 2, puffs, Inhalation, Every 6 hours, PRN, # 8.5 Gm, Refills 5, Tot. Refills 5, 04/09/22 15:33:00 EST, Route to Pharmacy Electronically, [id number], [facility] #[id number], 176.8, cm, 02/28/22 10:47:00 EDT, Height, 123.4,... Start Date: 04/09/22 Status: Ordered Ventolin HFA 108 mcg/inh inhalation aerosol with adapter See Instructions, INHALE 2 PUFFS BY MOUTH EVERY 6 HOURS NEEDED, # 18 Gm, 0 Refills, Maintenance,11/29/22 9:18:00 EDT, [facility] #[id number], 176.8, cm, 11/05/22 11:22:00 EDT, Height, 127.4,kg, 05/17/22 4:58:00 EST, Dry Weight Start Date: 11/29/22 Status: Ordered Problem List Condition Confirmation Course [...] Care team information Care Team Personnel Name: Ab FRAGA, Margarito Dolan Position: [facility] Physician - Primary Care Member Role: PCP Address: Address: [address] [place] [address] Name: Bhumika Castillo RN Position: [facility] SN RN Member Role: Primary Care Nurse Name: Jaja Arshad RN Position: [facility] RN Member Role: Primary Care Nurse Name: Ludwin Butcher RN Position: [facility] RN Member Role: Primary Care Nurse Care Team Related Persons Name: GARRETT FUENTES Address: home [address] [place] [id number] Name: MARLO REINOSO Name: PT STS, NONE Name: EFFIE RICKETTS Name: RANDALL RICKETTS
--- OUTSIDE RECORDS SUMMARY | 2023-09-25 00:27 | XMS_ITS | Continuity of Care Document ---
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 Refills 0, Maintenance, 02/27/23 17:04:00 EDT, Route to Pharmacy Electronically, [facility] #[id number], Partial fill upon patient request if the prescription is... Start Date: 02/27/23 Status: Ordered diclofenac sodium 75 mg oral delayed release tablet See Instructions, TAKE 1 TABLET BY MOUTH TWICE DAILY WITH FOOD DIRECTED, # 60 tablet, 1 Refills,03/11/23 16:29:00 EST, [facility] #[id number], 176.8, cm, 01/24/23 10:59:00 EDT, Height, 127.4, kg, 05/17/22 4:58:00 EST, Dry Weight Start Date: 03/11/23 Status: Ordered EpiPen 2-Michael 0.3 mg injectable kit = 0.3 mg, Intramuscular, Once, PRN severe allergic reaction, may repeat if necessary, # 2 each, 0 Refills, Soft Stop, 01/24/23 12:05:00 EDT, [facility] #[id number], 176.8, cm, 01/24/23 10:59:00 EDT, Height, 127.4, kg, 05/17/22 4:58:00 EST, Dry We... Start Date: 01/24/23 Status: Ordered hydrOXYzine hydrochloride 50 mg oral tablet 1 tablet = 50 mg, By Mouth, 3 times a day, # 90 tablet, 1 Refills, Maintenance, 02/12/23 8:08:00 EDT, [facility] #[id number], 176.8, cm, 01/24/23 10:59:00 EDT, Height, 127.4, kg, 05/17/22 4:58:00 EST, Dry Weight Start Date: 02/12/23 Status: Ordered losartan 50 mg oral tablet 1 tablet, By Mouth, Daily, # 90 tablet, 1 Refills, Maintenance, 11/28/22 21:33:00 EDT, [facility] #[id number], 176.8, cm, 11/05/22 11:22:00 EDT, Height, 127.4, kg, 05/17/22 4:58:00 EST, Dry Weight Start Date: 11/28/22 Status: Ordered mupirocin 2% topical ointment See Instructions, APPLY TOPICALLY TO THE AFFECTED AREA THREE TIMES DAILY FOR 14 DAYS, # 22 Gm, 0 Refills, Maintenance, 03/11/23 16:29:00 EST, [facility] #[id number], 10, APPLY TOPICALLY TO THE AFFECTED AREA THREE TIMES DAILY FOR 14 DAYS, 176.8, c... Start Date: 03/11/23 Status: Ordered oxyCODONE 5 mg oral tablet 5 mg, 1, tablet, By Mouth, Every 8 hours, PRN, mass pat ok, ok for less. TAKE ONLY NEEDED, # 45 tablet, Refills 0, Tot. Refills 0, Maintenance, Pain , Moderate, 03/12/23 16:48:00 EST, Route to Pharmacy Electronically, [facility] #[id number], P... Start Date: 03/12/23 Stop Date: 03/27/23 Status: Ordered predniSONE 20 mg oral tablet See Instructions, 2 tablets By Mouth Daily for 5 days and then 1 tablet by mouth daily for 5 days, # 15 tablet, 0 Refills, Soft Stop, 01/08/23 16:53:00 EDT, Tablet, [facility] #[id number], Partial fill upon patient request if the prescription is... Start Date: 01/08/23 Status: Ordered triamcinolone 0.025% topical ointment 1 application, Topically, 2 times a day, for 14 days, # 60 Gm, 3 Refills, Acute 03/27/23 12:53:00 EST, 01/30/23 12:53:00 EDT, Ointment, [facility] #[id number], Partial fill upon patient request if the prescription is for a schedule II opioid drug... Start Date: 01/30/23 Stop Date: 03/27/23 Status: Ordered Ventolin HFA 108 mcg/inh inhalation aerosol with adapter 2 puffs, Inhalation, Every 6 hours, # 8.5 Gm, 6 Refills, Maintenance, 12/23/22 11:39:00 EDT, [facility] #[id number], 176.8, cm, 12/23/22 11:25:00 EDT, Height, 127.4, [...] Team Personnel Name: Margarito Berger MD Position: [facility] Physician - Primary Care Member Role: PCP Address: Address: [address] [place] [address]- Name: Bhumika Castillo RN Position: [facility] SN RN Member Role: Primary Care Nurse Name: Jaja Arshad RN Position: [facility] RN Member Role: Primary Care Nurse Name: Ludwin Butcher RN Position: [facility] RN Member Role: Primary Care Nurse Care Team Related Persons Name: GARRETT FUENTES Address: home [address] [place] [address] Name: MARLO REINOSO Name: PT STS, NONE Name: EFFIE RICKETTS Name: RANDALL RICKETTS
--- OUTSIDE RECORDS SUMMARY | 2023-09-25 00:27 | XMS_ITS | Continuity of Care Document ---
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 Start Date: 05/18/22 Status: Ordered Colace Capsule 100 mg, 1, capsule, By Mouth, 2 times a day, Refills 0, Maintenance, 05/18/22 7:55:00 EST, Partial fill upon patient request if the prescription is for a schedule II opioid drug. Start Date: 05/18/22 Status: Ordered cyclobenzaprine 10 mg oral tablet 10 mg, 1, tablet, By Mouth, 3 times a day, PRN spasms, # 60 tablet, Refills 0, Tot. Refills 0, Maintenance, 10/21/22 15:31:00 EDT, Route to Pharmacy Electronically, [facility] #[id number], Partial fill upon patient request if the prescription is... Start Date: 10/21/22 Status: Ordered EpiPen 2-Michael 0.3 mg injectable kit = 0.3 mg, Intramuscular, Once, PRN severe allergic reaction, may repeat if necessary, # 2 each, 0 Refills, Soft Stop, 11/06/20 13:52:00 EDT, [facility] #[id number], 176.8, cm, 11/06/20 13:38:00 EDT, Height, 140.3, kg, 11/06/20 13:38:00 EDT, Dry W... Start Date: 11/06/20 Status: Ordered hydrOXYzine hydrochloride 50 mg oral tablet See Instructions, TAKE 1 TABLET BY MOUTH FOUR TIMES DAILY FOR 12 DAYS NEEDED FOR ANXIETY, # 48 tablet, 0 Refills, Maintenance, 06/14/22 15:46:00 EST, [facility] #[id number], 176.8, cm, 05/01/22 13:41:00 EST, Height, 127.4, kg, 05/17/22 4:58:00... Start Date: 06/14/22 Status: Ordered hydrOXYzine hydrochloride 50 mg oral tablet See Instructions, TAKE 1 TABLET BY MOUTH FOUR TIMES DAILY FOR 12 DAYS NEEDED FOR ANXIETY, # 48 tablet, 0 Refills, Maintenance, 07/01/22 17:28:00 EST, [facility] #[id number], 176.8, cm, 05/01/22 13:41:00 EST, Height, 127.4, kg, 05/17/22 4:58:00... Start Date: 07/01/22 Status: Ordered hydrOXYzine hydrochloride 50 mg oral tablet 1 tablet = 50 mg, By Mouth, 3 times a day, # 60 tablet, 1 Refills, Maintenance, 10/21/22 15:31:00 EDT, [facility] #[id number], 176.8, cm, 10/11/22 16:37:00 EDT, Height, 127.4, kg, 05/17/22 4:58:00 EST, Dry Weight Start Date: 10/21/22 Status: Ordered hydrOXYzine pamoate 50 mg oral capsule 1 capsule = 50 mg, By Mouth, Every 6 hours, PRN Anxiety, 0 Refills, Maintenance, 05/18/22 7:58:00 EST, Capsule, Partial fill upon patient request if the prescription is for a schedule II opioid drug. Start Date: 05/18/22 Status: Ordered ibuprofen 800 mg oral tablet 1, tablet, By Mouth, 3 times a day, PRN, TAKE WITH FOOD OR MILK., # 90 tablet, Refills 5, Tot. Refills 5, Maintenance, NEEDED FOR PAIN(, 08/27/22 20:18:00 EDT, Route to Pharmacy Electronically, [facility] #[id number], 176.8, cm, 05/01/22 13:41... Start Date: 08/27/22 Status: Ordered Inhaler Spacer Inhaler Spacer , See Instructions, # 1 each, Refills 0, Tot. Refills 0, Maintenance, For use with Albuterol inhaler, as needed, 01/15/21 16:35:00 EDT, Supply, 176.8, cm, 01/08/21 12:47:00 EDT, Height, 140.3, kg, 11/06/20 13:38:00 EDT, Dry Weight Start Date: 01/15/21 Status: Ordered losartan 50 mg oral tablet 1 tablet, By Mouth, Daily, # 90 tablet, 1 Refills, Maintenance, 06/03/22 11:27:00 EST, [facility] #[id number], 176.8, cm, 05/01/22 13:41:00 EST, Height, 127.4, kg, 05/17/22 4:58:00 EST, Dry Weight Start Date: 06/03/22 Stop Date: 11/30/22 Status: Ordered MiraLax Powder 1 pack/packet = 17 Gm, By Mouth, Daily, PRN Constipation, 0 Refills, Maintenance, 05/18/22 7:55:00 EST, Powder, Partial fill upon patient request if the prescription is for a schedule II opioid drug. Start Date: 05/18/22 Status: Ordered oxyCODONE 5 mg oral tablet 5 mg, 1, tablet, By Mouth, Every 8 hours, PRN, mass pat ok, ok for less. TAKE ONLY NEEDED, # 45 tablet, Refills 0, Tot. Refills 0, Maintenance, Pain , Moderate, 10/23/22 17:05:00 EDT, Route to Pharmacy Electronically, [facility] #[id number], P... Start Date: 10/23/22 Stop Date: 11/07/22 Status: Ordered pantoprazole 40 mg oral delayed release tablet = 40 mg, By Mouth, Daily in AM, 0 Refills, Maintenance, 05/18/22 7:55:00 EST, EC Tablet Start Date: 05/18/22 Status: Ordered ProAir HFA 90 mcg/inh inhalation aerosol with adapter 2, puffs, Inhalation, Every 6 hours, PRN, # 8.5 Gm, Refills 5, Tot. Refills 5, 04/09/22 15:33:00 EST, Route to Pharmacy Electronically, [id number], [facility] #[id number], 176.8, cm, 02/28/22 10:47:00 EDT, Height, 123.4,... Start Date: 04/09/22 Status: Ordered senna 187 mg oral tablet 1 tablet = 8.6 mg, By Mouth, Daily at bedtime, PRN as needed for constipation, 0 Refills, Maintenance, 05/18/22 7:55:00 EST, Tablet, Partial fill upon patient request if the prescription is for a schedule II opioid drug. Start Date: 05/18/22 Status: Ordered triamcinolone 0.025% topical ointment 1 application, Topically, 2 times a day, for 14 days, # 60 Gm, 3 Refills, Acute 12/06/22 16:54:00 EDT, 10/11/22 16:54:00 EDT, Ointment, [facility] #[id number], Partial fill upon patient request if the prescription is for a schedule II opioid drug... Start Date: 10/11/22 Stop Date: 12/06/22 Status: Ordered Problem List Condition Confirmation Course [...] Team Personnel Name: Margarito Berger MD Position: [facility] Physician - Primary Care Member Role: PCP Address: Address: [address] [place] [address] Name: Bhumika Castillo RN Position: [facility] SN RN Member Role: Primary Care Nurse Name: Jaja Arshad RN Position: [facility] RN Member Role: Primary Care Nurse Name: Ludwin Butcher RN Position: [facility] RN Member Role: Primary Care Nurse Care Team Related Persons Name: GARRETT FUENTES Address: home [address] [place] [address] Name: MARLO REINOSO Name: PT STS, NONE Name: EFFIE RICKETTS Name: RANDALL RICKETTS
--- OUTSIDE RECORDS SUMMARY | 2023-09-25 00:27 | XMS_ITS | Continuity of Care Document ---
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 Refills 0, Maintenance, 08/13/22 22:55:00 EDT, Route to Pharmacy Electronically, [facility] #[id number], Partial fill upon patient request if the prescription is... Start Date: 08/13/22 Status: Ordered EpiPen 2-Michael 0.3 mg injectable kit = 0.3 mg, Intramuscular, Once, PRN severe allergic reaction, may repeat if necessary, # 2 each, 0 Refills, Soft Stop, 11/06/20 13:52:00 EDT, [facility] #[id number], 176.8, cm, 11/06/20 13:38:00 EDT, Height, 140.3, kg, 11/06/20 13:38:00 EDT, Dry W... Start Date: 11/06/20 Status: Ordered hydrOXYzine hydrochloride 50 mg oral tablet See Instructions, TAKE 1 TABLET BY MOUTH FOUR TIMES DAILY FOR 12 DAYS NEEDED FOR ANXIETY, # 48 tablet, 0 Refills, Maintenance, 06/14/22 15:46:00 EST, [facility] #[id number], 176.8, cm, 05/01/22 13:41:00 EST, Height, 127.4, kg, 05/17/22 4:58:00... Start Date: 06/14/22 Status: Ordered hydrOXYzine hydrochloride 50 mg oral tablet See Instructions, TAKE 1 TABLET BY MOUTH FOUR TIMES DAILY FOR 12 DAYS NEEDED FOR ANXIETY, # 48 tablet, 0 Refills, Maintenance, 07/01/22 17:28:00 EST, [facility] #[id number], 176.8, cm, 05/01/22 13:41:00 EST, Height, 127.4, kg, 05/17/22 4:58:00... Start Date: 07/01/22 Status: Ordered hydrOXYzine hydrochloride 50 mg oral tablet 1 tablet = 50 mg, By Mouth, 3 times a day, # 60 tablet, 1 Refills, Maintenance, 07/24/22 16:54:00 EDT, [facility] #[id number], 176.8, cm, 05/01/22 13:41:00 EST, Height, 127.4, kg, 05/17/22 4:58:00 EST, Dry Weight Start Date: 07/24/22 Status: Ordered hydrOXYzine pamoate 50 mg oral [...] 08/27/22 20:18:00 EDT, Route to Pharmacy Electronically, [facility] #[id number], 176.8, cm, 05/01/22 13:41... Start Date: 08/27/22 [...] tablet, 1 Refills, Maintenance, 06/03/22 11:27:00 EST, [facility] #[id number], 176.8, cm, 05/01/22 13:41:00 EST, Height, 127.4, [...] Tot. Refills 0, Maintenance, Pain , Moderate, 09/06/22 10:29:00 EDT, Route to Pharmacy Electronically, [facility] #[id number], P... Start Date: 09/06/22 Stop Date: 09/21/22 Status: Ordered oxyCODONE 5 mg oral tablet 5 mg, 1, tablet, By Mouth, Every 8 hours, PRN, for 15 days, mass pat ok, ok for less. TAKE ONLY NEEDED, # 45 tablet, Refills 0, Tot. Refills 0, Hard Stop 09/10/22 18:26:00 EDT, Pain , Moderate, 08/26/22 18:26:00 EDT, Route to Pharmacy [facility]... Start Date: 08/26/22 Stop Date: 09/10/22 Status: Ordered pantoprazole 40 mg oral delayed release tablet = 40 mg, By Mouth, Daily in AM, 0 Refills, Maintenance, 05/18/22 7:55:00 EST, EC Tablet Start Date: 05/18/22 Status: Ordered ProAir HFA 90 mcg/inh inhalation aerosol with adapter 2, puffs, Inhalation, Every 6 hours, PRN, # 8.5 Gm, Refills 5, Tot. Refills 5, 04/09/22 15:33:00 EST, Route to Pharmacy Electronically, [id number], [facility] #[id number], 176.8, cm, 02/28/22 10:47:00 EDT, Height, 123.4,... Start Date: 04/09/22 Status: Ordered senna 187 mg oral tablet 1 tablet = 8.6 mg, By Mouth, Daily at bedtime, PRN as needed for constipation, 0 Refills, Maintenance, 05/18/22 7:55:00 EST, Tablet, Partial fill upon patient request if the prescription is for a schedule II opioid drug. Start Date: 05/18/22 Status: Ordered Problem List Condition Confirmation Course [...] Team Personnel Name: Margarito Berger MD Position: [facility] Primary Care Physician Member Role: PCP Address: Address: [address] [place] [address] Name: Bhumika Castillo RN Position: [facility] RN Member Role: Primary Care Nurse Name: Jaja Arshad RN Position: [facility] RN Member Role: Primary Care Nurse Name: Ludwin Butcher RN Position: [facility] RN Member Role: Primary Care Nurse Care Team Related Persons Name: GARRETT FUENTES Address: home [address] [place] [address] Name: MARLO REINOSO Name: PT STS, NONE Name: EFFIE RICKETTS Name: RANDALL RICKETTS
--- OUTSIDE RECORDS SUMMARY | 2023-09-25 00:27 | XMS_ITS | Continuity of Care Document ---
Author Organization [facility] Address [address] [place] [address]- Care Team Providers Care Intramural Director Name Role Phone Tra Kang MD Primary Care Physician [phone] [place] [facility] [place]): 09/07/19 - 09/14/19 [facility] [address] [place] [address]- [place] Encounter Diagnosis Pruritic dermatitis(Discharge Diagnosis) - 09/07/19 Attending Physician: Tra Kang MD Allergies, Adverse Reactions, Alerts No Known Medication Allergies Substance Reaction Severity Status Seafood Active Other Food Allergy tuna fish Active Immunizations Given and Recorded Vaccine Date Status Refusal Reason tetanus/diphtheria/pertussis, acel(Tdap) 01/23/11 Given Medications albuterol CFC free 90 mcg/inh inhalation aerosol 2, puffs, Inhalation, Every 6 hours, PRN, # 18 Gm, Refills 5, Tot. Refills 5, Maintenance, 09/05/2010:22:00 EDT, Aerosol, Route to Pharmacy Electronically, [id number], [facility] #[id number], 176.8, cm, 12/31/18 14:22:0... Start Date: 09/06/19 Status: Ordered cephalexin monohydrate 500 mg oral capsule 1 capsule = 500 mg, By Mouth, 3 times a day, for 10 days, # 30 capsule, 0 Refills, Acute 09/19/19 11:58:00 EDT, 09/09/19 11:58:00 EDT, Capsule, [facility] #[id number], 176.8, cm, 09/09/19 10:48:00 EDT, Height Start Date: 09/09/19 Stop Date: 09/19/19 Status: Ordered Chantix Starter Pack 0.5 mg-1 mg oral tablet 1 tablet, By Mouth, 2 times a day, as directed on package labeling, # 53 tablet, 0 Refills, Maintenance, 02/19/19 14:26:26 EDT, Tablet, 1 tablet By Mouth 2 times a day,Instr:as directed on package labeling Start Date: 02/19/19 Status: Ordered EpiPen 2-Michael 0.3 mg injectable kit = 0.3 mg, Intramuscular, Once, PRN severe allergic reaction, may repeat if necessary, # 2 each, 0 Refills, Soft Stop, 09/03/17 13:34:23 EDT Start Date: 09/03/17 Status: Ordered hydrOXYzine hydrochloride 50 mg oral tablet 1 tablet = 50 mg, By Mouth, 4 times a day, for 30 days, as needed for itching, # 120 tablet, 1 Refills, Acute 10/04/19 10:45:00 EDT, 08/05/19 10:45:00 EDT, Tablet, [facility] #[id number], 176.8,cm, 12/31/18 14:22:00 EDT, Height Start Date: 08/05/19 Stop Date: 10/04/19 Status: Ordered ibuprofen 800 mg oral tablet 1 tablet = 800 mg, By Mouth, 3 times a day, PRN as needed for pain, with food or milk, # 90 tablet,5 Refills, Maintenance, Tablet, 1 tablet By Mouth 3 times a day,PRN:as needed for pain,Instr:with food or milk Start Date: 03/08/13 Status: Ordered oxyCODONE 5 mg oral tablet 2.5 mg, 0.5, tablet, By Mouth, Daily, for 28 days, # 14 tablet, Refills 0, Tot. Refills 0, Acute 09/21/19 16:13:00 EDT, 08/24/19 16:13:00 EDT, Route to Pharmacy Electronically, [facility] #[id number], Partial fill upon patient request, 08/31/19,... Start Date: 08/24/19 Stop Date: 09/21/19 Status: Ordered triamcinolone 0.1% topical cream See Instructions, APPLY TOPICALLY TO THE AFFECTED AREA ON ARMS AND LEGS THREE TIMES DAILY FOR 14 DAYS, # 80 Gm, 0 Refills, Acute 09/28/19 12:22:00 EDT, 09/14/19 12:22:00 EDT, [facility] #[id number], 25, Please mix with 16 oz Eucerin cream, APPLY... Start Date: 09/14/19 Stop Date: 09/28/19 Status: Ordered Problem List Condition Effective Dates Status Health Status Inform ant Chronic knee pain(Confirmed) Active Chronic low back pain(Confirmed) Active Hypertension(Confirmed) Active Anxiety and depression(Confirmed) Active SKIP - Obstructive sleep apnea(Confirmed) Active Chronic use of opiate for th erapeutic purpose(Confirmed) Active Diagnosis Diagnosis Type Effective Dates Health Status Clinical Service Informant Pruritic dermatitis Discharge Diagnosis 09/07/19 Vital Signs Most recent to oldest [Reference Range]: 1 Height 176.8 cm (09/07/19 3:03 PM) Social History Social History Type Response Smoking Status 5-9 cigarettes (betw een 1/4 to 1/2 pack)/day in last 30 days; Tobacco use times per day: 7; entered on: 12/31/18 Sex
--- OUTSIDE RECORDS SUMMARY | 2023-09-25 00:27 | XMS_ITS | Continuity of Care Document ---
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 Start Date: 02/27/23 Status: Ordered diclofenac sodium 75 mg oral delayed release tablet See Instructions, TAKE 1 TABLET BY MOUTH TWICE DAILY WITH FOOD DIRECTED, # 60 tablet, 1 Refills,03/11/23 16:29:00 EST, [facility] #[id number], 176.8, cm, 01/24/23 10:59:00 EDT, Height, 127.4, kg, 05/17/22 4:58:00 EST, Dry Weight Start Date: 03/11/23 Status: Ordered EpiPen 2-Michael 0.3 mg injectable kit = 0.3 mg, Intramuscular, Once, PRN severe allergic reaction, may repeat if necessary, # 2 each, 0 Refills, Soft Stop, 01/24/23 12:05:00 EDT, [facility] #[id number], 176.8, cm, 01/24/23 10:59:00 EDT, Height, 127.4, kg, 05/17/22 4:58:00 EST, Dry We... Start Date: 01/24/23 Status: Ordered hydrOXYzine hydrochloride 50 mg oral tablet 1 tablet = 50 mg, By Mouth, 3 times a day, # 90 tablet, 1 Refills, Maintenance, 02/12/23 8:08:00 EDT, [facility] #[id number], 176.8, cm, 01/24/23 10:59:00 EDT, Height, 127.4, kg, 05/17/22 4:58:00 EST, Dry Weight Start Date: 02/12/23 Status: Ordered losartan 50 mg oral tablet 1 tablet, By Mouth, Daily, # 90 tablet, 1 Refills, Maintenance, 11/28/22 21:33:00 EDT, [facility] #[id number], 176.8, cm, 11/05/22 11:22:00 EDT, Height, 127.4, kg, 05/17/22 4:58:00 EST, Dry Weight Start Date: 11/28/22 Status: Ordered mupirocin 2% topical ointment See Instructions, APPLY TOPICALLY TO THE AFFECTED AREA THREE TIMES DAILY FOR 14 DAYS, # 22 Gm, 0 Refills, Maintenance, 03/11/23 16:29:00 EST, [facility] #[id number], 10, APPLY TOPICALLY TO THE AFFECTED AREA THREE TIMES DAILY FOR 14 DAYS, 176.8, c... Start Date: 03/11/23 Status: Ordered oxyCODONE 5 mg oral tablet 5 mg, 1, tablet, By Mouth, Every 8 hours, PRN, mass pat ok, ok for less. TAKE ONLY NEEDED, # 45 tablet, Refills 0, Tot. Refills 0, Maintenance, Pain , Moderate, 03/12/23 16:48:00 EST, Route to Pharmacy Electronically, [facility] #[id number], P... Start Date: 03/12/23 Stop Date: 03/27/23 Status: Ordered predniSONE 20 mg oral tablet See Instructions, 2 tablets By Mouth Daily for 5 days and then 1 tablet by mouth daily for 5 days, # 15 tablet, 0 Refills, Soft Stop, 01/08/23 16:53:00 EDT, Tablet, [facility] #[id number], Partial fill upon patient request if the prescription is... Start Date: 01/08/23 Status: Ordered triamcinolone 0.025% topical ointment 1 application, Topically, 2 times a day, for 14 days, # 60 Gm, 3 Refills, Acute 03/27/23 12:53:00 EST, 01/30/23 12:53:00 EDT, Ointment, [facility] #[id number], Partial fill upon patient request if the prescription is for a schedule II opioid drug... Start Date: 01/30/23 Stop Date: 03/27/23 Status: Ordered Ventolin HFA 108 mcg/inh inhalation aerosol with adapter 2 puffs, Inhalation, Every 6 hours, # 8.5 Gm, 6 Refills, Maintenance, 12/23/22 11:39:00 EDT, [facility] #[id number], 176.8, cm, 12/23/22 11:25:00 EDT, Height, 127.4, [...] Team Personnel Name: Margarito Berger MD Position: [facility] Physician - Primary Care Member Role: PCP Address: Address: [address] [place] [id number]- Name: Bhumika Castillo RN Position: [facility] SN RN Member Role: Primary Care Nurse Name: Jaja Arshad RN Position: [facility] RN Member Role: Primary Care Nurse Name: Ludwin Butcher RN Position: [facility] RN Member Role: Primary Care Nurse Care Team Related Persons Name: GARRETT FUENTES Address: [address] [place] [address] Name: MARLO REINOSO Name: PT STS, NONE Name: EFFIE RICKETTS Name: RANDALL RICKETTS
--- OUTSIDE RECORDS SUMMARY | 2023-09-25 00:27 | XMS_ITS | Continuity of Care Document ---
Author Organization [facility] Address [address] [place] [address]- Care Team Providers Care Master Control Operator Name Role Phone Ab FRAGA, Margarito Dolan Primary Care Physician [place] [facility] [place] [facility] [address] [place] [address]- Allergies, Adverse Reactions, Alerts No Known Medication [...] tablet, Refills 0, Tot. Refills 0, Maintenance, 10/02/22 12:16:00 EDT, Route to Pharmacy Electronically, [facility] #[id number], Partial fill upon patient request if the prescription is... Start Date: 10/02/22 Status: Ordered doxycycline hyclate 100 mg oral tablet 1 tablet = 100 mg, By Mouth, 2 times a day, for 14 days, # 28 tablet, 0 Refills, Acute 10/25/22 16:56:00 EDT, 10/11/22 16:56:00 EDT, Tablet, [facility] #[id number], Partial fill upon patient request if the prescription is for a schedule II opioid... Start Date: 10/11/22 Stop Date: 10/25/22 Status: Ordered EpiPen 2-Michael 0.3 mg injectable kit = 0.3 mg, Intramuscular, Once, PRN severe allergic reaction, may repeat if necessary, # 2 each, 0 Refills, Soft Stop, 11/06/20 13:52:00 EDT, [facility] #[id number], 176.8, cm, 11/06/20 13:38:00 EDT, Height, 140.3, kg, 11/06/20 13:38:00 EDT, Dry W... Start Date: 11/06/20 Status: Ordered hydrOXYzine hydrochloride 50 mg oral tablet 1 tablet = 50 mg, By Mouth, 3 times a day, # 60 tablet, 1 Refills, Maintenance, 09/09/22 9:32:00 EDT, [facility] #[id number], 176.8, cm, 09/02/22 16:24:00 EDT, Height, 127.4, kg, 05/17/22 4:58:00 EST, Dry Weight Start Date: 09/09/22 Status: Ordered hydrOXYzine hydrochloride 50 mg oral tablet See Instructions, TAKE 1 TABLET BY MOUTH FOUR TIMES DAILY FOR 12 DAYS NEEDED FOR ANXIETY, # 48 tablet, 0 Refills, Maintenance, 06/14/22 15:46:00 EST, [facility] #[id number], 176.8, cm, 05/01/22 13:41:00 EST, Height, 127.4, kg, 05/17/22 4:58:00... Start Date: 06/14/22 Status: Ordered hydrOXYzine hydrochloride 50 mg oral tablet See Instructions, TAKE 1 TABLET BY MOUTH FOUR TIMES DAILY FOR 12 DAYS NEEDED FOR ANXIETY, # 48 tablet, 0 Refills, Maintenance, 07/01/22 17:28:00 EST, [facility] #[id number], 176.8, cm, 05/01/22 13:41:00 EST, Height, 127.4, kg, 05/17/22 4:58:00... Start Date: 07/01/22 Status: Ordered hydrOXYzine pamoate 50 mg oral [...] 08/27/22 20:18:00 EDT, Route to Pharmacy Electronically, [facility] #[id number], 176.8, cm, 05/01/22 13:41... Start Date: 08/27/22 Status: Ordered Inhaler Spacer Inhaler Spacer , See Instructions, # 1 each, Refills 0, Tot. Refills 0, Maintenance, For use with Albuterol inhaler, as needed, 01/15/21 16:35:00 EDT, Supply, 176.8, cm, 01/08/21 12:47:00 EDT, Height, 140.3, kg, 07/12/21 13:38:00 EDT, Dry Weight Start Date: 01/15/21 Status: Ordered losartan 50 mg oral tablet 1 tablet, By Mouth, Daily, # 90 tablet, 1 Refills, Maintenance, 06/03/22 11:27:00 EST, [facility] #[id number], 176.8, cm, 05/01/22 13:41:00 EST, Height, 127.4, [...] Tot. Refills 0, Maintenance, Pain , Moderate, 10/09/22 7:14:00 EDT, Route to Pharmacy Electronically, [facility] #[id number], Pa... Start Date: 10/09/22 Stop Date: 10/24/22 Status: Ordered pantoprazole 40 mg oral delayed release tablet = 40 mg, By Mouth, Daily in AM, 0 Refills, Maintenance, 05/18/22 7:55:00 EST, EC Tablet Start Date: 05/18/22 Status: Ordered ProAir HFA 90 mcg/inh inhalation aerosol with adapter 2, puffs, Inhalation, Every 6 hours, PRN, # 8.5 Gm, Refills 5, Tot. Refills 5, 04/09/22 15:33:00 EST, Route to Pharmacy Electronically, [id number], [facility] #[id number], 176.8, cm, 02/28/22 10:47:00 EDT, Height, 123.4,... [...] 12/06/22 16:54:00 EDT, 10/11/22 16:54:00 EDT, Ointment, [facility] #[id number], Partial fill upon patient request if the [...] Team Personnel Name: Margarito Berger MD Position: [facility] Physician - Primary Care Member Role: PCP Address: Address: [address] [place] [id number] Name: Bhumika Castillo RN Position: [facility] SN RN Member Role: Primary Care Nurse Name: Jaja Asrhad RN Position: S RN Member Role: Primary Care Nurse Name: Ludwin Butcher RN Position: [facility] RN Member Role: Primary Care Nurse Care Team Related Persons Name: GARRETT FUENTES Address: home [address] [place] [address] Name: MARLO REINOSO Name: PT STS, NONE Name: EFFIE RICKETTS Name: RANDALL RICKETTS
--- OUTSIDE RECORDS SUMMARY | 2023-09-25 00:27 | XMS_ITS | Continuity of Care Document ---
Author Organization [facility] Address [address] [place] [address]- Care Team Providers Care It Solutions Architect Name Role Phone Ab FRAGA, Margarito Dolan Primary Care Physician [place] [facility] [place]/23/23 - 02/22/23 [facility] [address] [place] [address]- Allergies, Adverse Reactions, Alerts No Known Medication [...] tablet, Refills 0, Tot. Refills 0, Maintenance, 01/23/23 17:29:00 EDT, Route to Pharmacy Electronically, [facility] #[id number], Partial fill upon patient request if the prescription is... Start Date: 01/23/23 Status: Ordered diclofenac sodium 75 mg oral delayed release tablet See Instructions, TAKE 1 TABLET BY MOUTH TWICE DAILY WITH FOOD DIRECTED, # 60 tablet, 0 Refills,01/29/23 13:09:00 EDT, [facility] #[id number], 176.8, cm, 01/24/23 10:59:00 EDT, Height, 127.4, kg, 05/17/22 4:58:00 EST, Dry Weight Start Date: 01/29/23 Status: Ordered EpiPen 2-Michael 0.3 mg injectable kit = 0.3 mg, Intramuscular, Once, PRN severe allergic reaction, may repeat if necessary, # 2 each, 0 Refills, Soft Stop, 01/24/23 12:05:00 EDT, [facility] #[id number], 176.8, cm, 01/24/23 10:59:00 EDT, Height, 127.4, kg, 05/17/22 4:58:00 EST, Dry We... Start Date: 01/24/23 Status: Ordered hydrOXYzine hydrochloride 50 mg oral tablet 1 tablet = 50 mg, By Mouth, 3 times a day, # 90 tablet, 1 Refills, Maintenance, 02/12/23 8:08:00 EDT, [facility] #[id number], 176.8, cm, 01/24/23 10:59:00 EDT, Height, 127.4, kg, 05/17/22 4:58:00 EST, Dry Weight Start Date: 02/12/23 Status: Ordered losartan 50 mg oral tablet 1 tablet, By Mouth, Daily, # 90 tablet, 1 Refills, Maintenance, 11/28/22 21:33:00 EDT, [facility] #[id number], 176.8, cm, 11/05/22 11:22:00 EDT, Height, 127.4, kg, 05/17/22 4:58:00 EST, Dry Weight Start Date: 11/28/22 Status: Ordered mupirocin 2% topical ointment See Instructions, APPLY TOPICALLY TO THE AFFECTED AREA THREE TIMES DAILY FOR 14 DAYS, # 22 Gm, 0 Refills, Maintenance, 02/19/23 12:57:00 EDT, [facility] #[id number], 10, APPLY TOPICALLY TO THE AFFECTED AREA THREE TIMES DAILY FOR 14 DAYS, 176.8, c... Start Date: 02/19/23 Status: Ordered oxyCODONE 5 mg oral tablet 5 mg, 1, tablet, By Mouth, Every 8 hours, PRN, mass pat ok, ok for less. TAKE ONLY NEEDED, # 45 tablet, Refills 0, Tot. Refills 0, Maintenance, Pain , Moderate, 02/11/23 9:57:00 EDT, Route to Pharmacy Electronically, [facility] #[id number], Pa... Start Date: 02/11/23 Stop Date: 02/26/23 Status: Ordered predniSONE 20 mg oral tablet See Instructions, 2 tablets By Mouth Daily for 5 days and then 1 tablet by mouth daily for 5 days, # 15 tablet, 0 Refills, Soft Stop, 01/08/23 16:53:00 EDT, Tablet, [facility] #[id number], Partial fill upon patient request if the prescription is... Start Date: 01/08/23 Status: Ordered triamcinolone 0.025% topical ointment 1 application, Topically, 2 times a day, for 14 days, # 60 Gm, 3 Refills, Acute 03/27/23 12:53:00 EST, 01/30/23 12:53:00 EDT, Ointment, [facility] #[id number], Partial fill upon patient request if the prescription is for a schedule II opioid drug... Start Date: 01/30/23 Stop Date: 03/27/23 Status: Ordered Ventolin HFA 108 mcg/inh inhalation aerosol with adapter 2 puffs, Inhalation, Every 6 hours, # 8.5 Gm, 6 Refills, Maintenance, 12/23/22 11:39:00 EDT, [facility] #[id number], 176.8, cm, 12/23/22 11:25:00 EDT, Height, 127.4, [...] use times per day: 7; entered on: 9/5/19 Sex Patient Care team information Care Team Personnel Name: Ab FRAGA, Margarito Dolan Position: [facility] Physician - Primary Care Member Role: PCP Address: Address: [address] [place] [id number] Name: Bhumika Castillo RN Position: [facility] SN RN Member Role: Primary Care Nurse Name: Jaja Arshad RN Position: [facility] RN Member Role: Primary Care Nurse Name: Ludwin Butcher RN Position: [facility] RN Member Role: Primary Care Nurse Care Team Related Persons Name: GARRETT FUENTES Address: home [address] [place] [address] Name: MARLO REINOSO Name: PT STS, NONE Name: EFFIE RICKETTS Name: RANDALL RICKETTS
--- OUTSIDE RECORDS SUMMARY | 2023-09-25 00:27 | XMS_ITS | Continuity of Care Document ---
Author Organization [facility] Address [address] [place] [address]- Care Team Providers Care Tobacco Flavorer Name Role Phone Margarito Berger MD Primary Care Physician Encounter [facility] [place] Date(s): 05/19/23 - 06/18/23 [facility] [address] [place] [address]- Allergies, Adverse Reactions, Alerts No Known Medication Allergies Substance Reaction Severity Status Seafood Active Other Food Allergy tuna fish Active Immunizations Given and Recorded Vaccine Date Status Refusal Reason SARS-CoV-2 (COVID-19) mRNA BNT-162b2 vac 05/14/21 Recorded SARS-CoV-2 (COVID-19) mRNA BNT-162b2 vac 09/17/20 Recorded SARS-CoV-2 (COVID-19) mRNA BNT-162b2 vac 08/27/20 Recorded tetanus/diphtheria/pertussis, acel(Tdap) 01/23/11 Given Medications amoxicillin 875 mg oral tablet 1 tablet, By Mouth, 2 times a day, # 20 tablet, 0 Refills, Maintenance, 05/28/23 8:20:00 EST, [facility] #[id number], 176.8, cm, 04/30/23 7:39:00 EST, Height, 127.4, kg, 05/17/22 4:58:00 EST, Dry Weight Start Date: 05/28/23 Stop Date: 06/07/23 Status: Ordered cyclobenzaprine 10 mg oral tablet 1, tablet, By Mouth, 3 times a day, PRN, # 60 tablet, Refills 1, Maintenance, NEEDED FOR SPASMS,05/28/23 8:20:00 EST, Route to Pharmacy Electronically, [facility] #[id number], 176.8, cm, 04/30/23 7:39:00 EST, Height, 127.4, kg, 05/17/22 4:58:... Start Date: 05/28/23 Status: Ordered diclofenac sodium 75 mg oral delayed release tablet 1 tablet, By Mouth, 2 times a day with meals, DIRECTED., # 60 tablet, 1 Refills, Maintenance, 05/04/23 6:22:00 EST, [facility] #[id number], 176.8, cm, 04/30/23 7:39:00 EST, Height, 127.4, kg,05/17/22 4:58:00 EST, Dry Weight Start Date: 05/04/23 Status: Ordered doxycycline hyclate 100 mg oral tablet 1 tablet, By Mouth, 2 times a day, # 28 tablet, 0 Refills, Maintenance, 05/28/23 8:20:00 EST, [facility] #[id number], 176.8, cm, 04/30/23 7:39:00 EST, Height, 127.4, kg, 05/17/22 4:58:00 EST, Dry Weight Start Date: 05/28/23 Stop Date: 06/11/23 Status: Ordered EpiPen 2-Michael 0.3 mg injectable kit = 0.3 mg, Intramuscular, Once, PRN severe allergic reaction, may repeat if necessary, # 2 each, 0 Refills, Soft Stop, 01/24/23 12:05:00 EDT, [facility] #[id number], 176.8, cm, 01/24/23 10:59:00 EDT, Height, 127.4, kg, 05/17/22 4:58:00 EST, Dry We... Start Date: 01/24/23 Status: Ordered hydrOXYzine hydrochloride 50 mg oral tablet 1 tablet = 50 mg, By Mouth, 3 times a day, PRN as needed for itching, # 90 tablet, 1 Refills, Maintenance, 06/18/23 13:07:00 EST, [facility] #[id number], 176.8, cm, 04/30/23 7:39:00 EST, Height,127.4, kg, 05/17/22 4:58:00 EST, Dry Weight Start Date: 06/18/23 Status: Ordered hydrOXYzine hydrochloride 50 mg oral tablet 1 tablet = 50 mg, By Mouth, 3 times a day, # 90 tablet, 1 Refills, Maintenance, 04/25/23 11:23:00 EST, [facility] #[id number], 176.8, cm, 01/24/23 10:59:00 EDT, Height, 127.4, kg, 05/17/22 4:58:00 EST, Dry Weight Start Date: 04/25/23 Status: Ordered losartan 50 mg oral tablet 1 tablet, By Mouth, Daily, # 90 tablet, 1 Refills, Maintenance, 06/05/23 18:32:00 EST, [facility] #[id number], 176.8, cm, 04/30/23 7:39:00 EST, Height, 127.4, kg, 05/17/22 4:58:00 EST, Dry Weight Start Date: 06/05/23 Status: Ordered metFORMIN 750 mg oral tablet, extended release 1 tablet = 750 mg, By Mouth, Daily, # 90 tablet, 1 Refills, Maintenance, 05/19/23 11:12:00 EST, ER Tablet, [facility] #[id number], Partial fill upon patient request if the prescription is for a schedule II opioid drug., 176.8, cm, 04/30/23 7:39:0... Start Date: 05/19/23 Status: Ordered mupirocin 2% topical ointment See Instructions, APPLY TOPICALLY TO THE AFFECTED AREA THREE TIMES DAILY FOR 14 DAYS, # 22 Gm, 0 Refills, Maintenance, 06/03/23 13:22:00 EST, [facility] #[id number], APPLY TOPICALLY TO THE AFFECTED AREA THREE TIMES DAILY FOR 14 DAYS, 176.8, cm, 0... Start Date: 06/03/23 Status: Ordered oxyCODONE 5 mg oral tablet 5 mg, 1, tablet, By Mouth, Every 8 hours, PRN, mass pat ok, ok for less. TAKE ONLY NEEDED DNF 06/07/2023, # 45 tablet, Refills 0, Tot. Refills 0, Maintenance, Pain , Moderate, 06/03/23 13:22:00 EST, Route to Pharmacy Electronically, [facility]... Start Date: 06/03/23 Stop Date: 06/18/23 Status: Ordered predniSONE 20 mg oral tablet See Instructions, 2 tablets By Mouth Daily for 5 days and then 1 tablet by mouth daily for 5 days, # 15 tablet, 0 Refills, Soft Stop, 01/08/23 16:53:00 EDT, Tablet, [facility] #[id number], Partial fill upon patient request if the prescription is... Start Date: 01/08/23 Status: Ordered triamcinolone 0.025% topical ointment 1 application, Topically, 3 times a day, Apply to affected area, # 15 Gm, 1 Refills, Maintenance, 06/03/23 9:33:00 EST, Ointment, [facility] #[id number], Partial fill upon patient request if theprescription is for a schedule II opioid drug., 1 a... Start Date: 06/03/23 Status: Ordered Ventolin HFA 108 mcg/inh inhalation aerosol with adapter 2 puffs, Inhalation, Every 6 hours, # 18 Gm, 5 Refills, Maintenance, 05/25/23 6:11:00 EST, [facility] #[id number], 176.8, cm, 04/30/23 7:39:00 EST, Height, 127.4, kg, 05/17/22 4:58:00 EST, Dry Weight Start Date: 05/25/23 Status: Ordered Problem List Condition Confirmation Course Effective Dates Status Health St atus Informant Chronic knee pain Confirmed Active Chronic low back pain Confirmed Active Daytime sleepiness Confirmed Active Hypertension Confirmed Active SKIP - Obstructive sleep apnea Confirmed Active Prediabetes Confirmed Active Severe obesity Confirmed Active Social History Social History Type Response Smoking Status 5-9 cigarettes (betw een 1/4 to 1/2 pack)/day in last 30 days; Tobacco use times per day: 7; entered on: 12/31/18 Sex Patient Care team information Care Team Personnel Name: Margarito Berger MD Position: [facility] Physician - Primary Care Member Role: PCP Address: Address: [address] [place] [id number] Name: Bhumika Castillo RN Position: [facility] RN Member Role: Primary Care Nurse Name: Jaja Arshad RN Position: S RN Member Role: Primary Care Nurse Name: Ludwin Butcher RN Position: S RN Member Role: Primary Care Nurse Care Team Related Persons Name: GARRETT FUENTES Address: home [address] [place] [address] Name: MARLO REINOSO Name: PT STS, NONE Name: EFFIE RICKETTS Name: RANDALL RICKETTS
--- OUTSIDE RECORDS SUMMARY | 2023-09-25 00:27 | XMS_ITS | Continuity of Care Document ---
Author Organization [facility] Address [address] [place] [address]- Care Team Providers Care Event Specialist Name Role Phone Ab FRAGA, Margarito Dolan Primary Care Physician Encounter [facility] [place] Date(s): 08/23/21 - 09/22/21 [facility] [address] [place] [address]- Allergies, Adverse Reactions, Alerts No Known Medication Allergies Substance Reaction Severity Status Seafood Active Other Food Allergy tuna fish Active Immunizations Given and Recorded Vaccine Date Status Refusal Reason SARS-CoV-2 (COVID-19) mRNA BNT-162b2 vac 05/14/21 Recorded SARS-CoV-2 (COVID-19) mRNA BNT-162b2 vac 09/17/20 Recorded SARS-CoV-2 (COVID-19) mRNA BNT-162b2 vac 08/27/20 Recorded tetanus/diphtheria/pertussis, acel(Tdap) 01/23/11 Given Medications EpiPen 2-Michael 0.3 mg injectable kit = 0.3 mg, Intramuscular, Once, PRN severe allergic reaction, may repeat if necessary, # 2 each, 0 Refills, Soft Stop, 11/06/20 13:52:00 EDT, [facility] #[id number], 176.8, cm, 11/06/20 13:38:00 EDT, Height, 140.3, kg, 11/06/20 13:38:00 EDT, Dry W... Start Date: 11/06/20 Status: Ordered hydrOXYzine hydrochloride 50 mg oral tablet 1 tablet, By Mouth, 4 times a day, PRN NEEDED FOR ANXIETY, for 12 days, # 48 tablet, 0 Refills, Physician Stop 10/01/21 12:08:00 EDT, 05/25/22 12:08:00 EDT, [facility] #[id number], 176.8, cm,08/27/21 15:32:00 EDT, Height, 140.3, kg, 11/06/20... Start Date: 09/19/21 Stop Date: 10/01/21 Status: Ordered ibuprofen 800 mg oral tablet 1, tablet, By Mouth, 3 times a day, PRN, TAKE WITH FOOD OR MILK, # 90 tablet, Refills 0, NEEDED FOR PAIN, Route to Pharmacy Electronically, [facility] #[id number], 176.8, cm, 06/21/21 15:26:00 EST, Height, 140.3, kg, 11/06/20 13:38:00 EDT, Dry... Start Date: 07/23/21 Status: Ordered ibuprofen 800 mg oral tablet 1, tablet, By Mouth, 3 times a day, PRN, TAKE WITH FOOD OR MILK, # 90 tablet, Refills 0, Tot. Refills 0, Maintenance, NEEDED FOR PAIN, 08/27/21 15:32:00 EDT, Route to Pharmacy Electronically, [facility] #[id number], 176.8, cm, 08/06/21 15:06:0... Start Date: 08/27/21 Status: Ordered Inhaler Spacer Inhaler Spacer , [...] 08/06/21 15:06:00... Start Date: 08/06/21 Status: Ordered lisinopril 10 mg oral tablet 10 mg, 1, tablet, By Mouth, Daily, # 30 tablet, Refills 2, Tot. Refills 2, Maintenance, 02/26/21 14:39:00 EDT, Route to Pharmacy Electronically, [facility] #[id number], Partial fill upon patientrequest if the prescription is for a schedule II op... Start Date: 02/26/21 Stop Date: 05/27/21 Status: Ordered losartan 50 mg oral tablet 1 tablet = 50 mg, By Mouth, Daily, for 30 days, # 30 tablet, 5 Refills, Physician Stop 10/13/21 14:50:00 EDT, 04/16/21 14:50:00 EST, [facility] #[id number], 176.8, cm, 02/01/21 16:07:00 EDT, Height, 140.3, kg, 11/06/20 13:38:00 EDT, Dry Weight Start Date: 04/16/21 Stop Date: 10/13/21 Status: Ordered magnesium oxide 250 mg oral tablet 1 tablet = 250 mg, By Mouth, Daily at bedtime, for 14 days, # 14 tablet, 0 Refills, Acute 10/03/21 12:08:00 EDT, 09/19/21 12:08:00 EDT, Tablet, [facility] #[id number], Partial fill upon patient request if the prescription is for a schedule II opi... Start Date: 09/19/21 Stop Date: 10/03/21 Status: Ordered metFORMIN 750 mg oral tablet, extended release 1 tablet, By Mouth, Daily, # 60 tablet, 5 Refills, [facility] #[id number], 176.8, cm, 02/02/2116:07:00 EDT, Height, 140.3, kg, 11/06/20 13:38:00 EDT, Dry Weight Start Date: 03/30/21 Status: Ordered oxyCODONE 5 mg oral tablet 5 mg, 1, tablet, By Mouth, Every 8 hours, PRN, mass pat ok, ok for less. Take only as needed. ok tofill 09/15/21, # 45 tablet, Refills 0, Tot. Refills 0, Maintenance, Pain , Moderate, 09/13/21 17:29:00 EDT, Route to Pharmacy Electronically, [email or web address]... Start Date: 09/13/21 Stop Date: 09/28/21 Status: Ordered phentermine 30 mg oral capsule 1 capsule = 30 mg, By Mouth, Daily in AM, for 30 days, # 30 capsule, 0 Refills, Acute 09/26/21 15:31:00 EDT, 08/27/21 15:31:00 EDT, Capsule, [facility] #30, Partial fill upon patient request if the prescription is for a schedule II opioid Start Date: 08/27/21 Stop Date: 09/26/21 Status: Ordered phentermine 30 mg oral capsule 1 capsule = 30 mg, By Mouth, Daily in AM, for 30 days, # 30 capsule, 0 Refills, Acute 10/21/21 12:38:00 EDT, 09/21/21 12:38:00 EDT, Capsule, [facility] #[facility], Partial fill upon patient request if the prescription is for a schedule II opioid Start Date: 09/21/21 Stop Date: 10/21/21 Status: Ordered phentermine 30 mg oral capsule 1 capsule = 30 mg, By Mouth, Daily in AM, for 30 days, # 30 capsule, 0 Refills, Acute 09/23/21 17:16:00 EDT, 08/24/21 17:16:00 EDT, Capsule, [facility] #[id number], Partial fill upon patient request if the prescription is for a schedule II opioid... Start Date: 08/24/21 Stop Date: 09/23/21 Status: Ordered ProAir HFA 90 mcg/inh inhalation aerosol with adapter 2, puffs, Inhalation, Every 6 hours, PRN, # 8.5 Gm, Refills 5, Route to Pharmacy Electronically, [id number], [facility] #[id number], 176.8, cm, 05/18/21 14:17:00 EST, Height, 140.3, kg, 11/06/20 13:38:00 EDT, Dry Weight Start Date: 06/13/21 Status: Ordered triamcinolone 0.1% topical cream See Instructions, APPLY TOPICALLY TO THE AFFECTED AREA ON ARMS AND LEGS THREE TIMES DAILY. MIX WITH16 OUNCES OF EUCERIN CREAM, # 80 Gm, 0 Refills, [facility] #[id number], 14, APPLY TOPICALLY TOTHE AFFECTED AREA ON ARMS AND LEGS THREE TIMES RAMESH... Start Date: 05/18/21 Status: Ordered Problem List Condition Effective Dates Status Health Status Inform ant Adjustment disorder(Confirmed) Active Chronic knee pain(Confirmed) Active Chronic low back pain(Confirmed) Active Leg cramping(Confirmed) Active Daytime sleepiness(Confirmed) Active Hypertension(Confirmed) Active Morbid obesity(Confirmed) Active SKIP - Obstructive sleep apnea(Confirmed) Active Prediabetes(Confirmed) Active Severe obesity(Confirmed) Active Social History Social History Type Response Smoking Status 5-9 cigarettes (betw een 1/4 to 1/2 pack)/day in last 30 days; Tobacco use times per day: 7; entered on: 12/31/18 Sex
--- OUTSIDE RECORDS SUMMARY | 2023-09-25 00:27 | XMS_ITS | Continuity of Care Document ---
Author Organization [facility] Address [address] [place] [address]- Care Team Providers Care Clinical Research Tech Name Role Phone Ab FRAGA, Margarito Dolan Primary Care Physician Encounter [facility] [place] Date(s): 11/06/20 - 11/13/20 [facility] [address] [place] [address]- Encounter Diagnosis Hypertension(Discharge Diagnosis) - 11/06/20 Morbid obesity with BMI of 40.0-44.9, adult(Discharge Diagnosis) - 11/06/20 Attending Physician: Daisy Bustillo MD Allergies, Adverse Reactions, Alerts No Known Medication Allergies Substance Reaction Severity Status Seafood Active Other Food Allergy tuna fish Active Immunizations Given and Recorded Vaccine Date Status Refusal Reason tetanus/diphtheria/pertussis, acel(Tdap) 01/23/11 Given Medications albuterol 90 mcg/inh inhalation powder 2 puffs, Inhalation, Every 6 hours, PRN as needed, # 1 each, 6 Refills, Maintenance, 11/08/20 9:05:00 EDT, Powder, [facility] #[id number], Partial fill upon patient request if the prescription is for a schedule II opioid drug., 2 puffs Inhalation... Start Date: 11/08/20 Status: Ordered EpiPen 2-Michael 0.3 mg injectable kit = 0.3 mg, Intramuscular, Once, PRN severe allergic reaction, may repeat if necessary, # 2 each, 0 Refills, Soft Stop, 11/06/20 13:52:00 EDT, [facility] #[id number], 176.8, cm, 11/06/20 13:38:00 EDT, Height, 140.3, kg, 11/06/20 13:38:00 EDT, Dry W... Start Date: 11/06/20 Status: Ordered hydrOXYzine pamoate 25 mg oral capsule 1 capsule = 25 mg, By Mouth, 4 times a day, for 14 days, prn itching; may increase to 2 caps as needed for itching, # 56 capsule, 1 Refills, Acute 12/04/20 14:16:00 EDT, 11/06/20 14:16:00 EDT, Capsule, [facility] #[id number], 176.8, cm, 11/06/20... Start Date: 11/06/20 Stop Date: 12/04/20 Status: Ordered ibuprofen 800 mg oral tablet 800 mg, 1, tablet, By Mouth, 3 times a day, PRN, with food or milk, # 90 tablet, Refills 5, Tot. Refills 5, Maintenance, as needed for pain, 11/06/20 13:53:00 EDT, Route to Pharmacy Electronically, [facility] #[id number], 176.8, cm, 11/06/20 13:3... Start Date: 11/06/20 Status: Ordered lisinopril 10 mg oral tablet 10 mg, 1, tablet, By Mouth, Daily, # 30 tablet, Refills 2, Tot. Refills 2, Maintenance, 11/06/20 13:53:00 EDT, Route to Pharmacy Electronically, [facility] #[id number], Partial fill upon patientrequest if the prescription is for a schedule II op... Start Date: 11/06/20 Stop Date: 02/04/21 Status: Ordered Problem List Condition Effective Dates Status Health Status Inform ant Morbid obesity with BMI of 4 0.0-44.9, adult(Confirmed) Active Chronic knee pain(Confirmed) Active Chronic low back pain(Confirmed) Active Hypertension(Confirmed) Active Anxiety and depression(Confirmed) Active SKIP - Obstructive sleep apnea(Confirmed) Active Chronic use of opiate for th erapeutic purpose(Confirmed) Active Diagnosis Diagnosis Type Effective Dates Health Status Clinical Service Informant Hypertension Discharge Diagnosis 11/06/20 Morbid obesity with BMI of 40.0-44.9, adult Discharge Diagnosis 11/06/20 Vital Signs Most recent to oldest [Reference Range]: 1 Height 176.8 cm (11/06/20 1:38 PM) Weight 140.3 kg (11/06/20 1:38 PM) Oxygen Saturation [94-100 %] 96 % (11/06/20 1:38 PM) Pulse Rate [55-90 bpm] 109 bpm *H* (11/06/20 1:38 PM) Body Mass Index [18.5-24.99] 44.88 *>HHI* (11/06/20 1:38 PM) Blood Pressure [90-138/55-84 mm Hg] 161/ 112mm Hg *H* (11/06/20 1:38 PM) Mode of Delivery (Oxygen) Room air (11/06/20 1:38 PM) Blood pressure sites Arm, left (11/06/20 1:38 PM) Dry Weight 140.3 kg (11/06/20 1:38 PM) Weight Obtained Via Standing scale (11/06/20 1:38 PM) Social History Social History Type Response Smoking Status 5-9 cigarettes (betw een 1/4 to 1/2 pack)/day in last 30 days; Tobacco use times per day: 7; entered on: 12/31/18 Sex
--- OUTSIDE RECORDS SUMMARY | 2023-09-25 00:27 | XMS_ITS | Continuity of Care Document ---
Author Organization [facility] Address [address] [place] [address]- Care Team Providers Care Ultrasound Spec Name Role Phone Margarito Berger MD Primary Care Physician Encounter [facility] [place] Date(s): 07/07/23 - 08/06/23 [facility] [address] [place] [address]- Allergies, Adverse Reactions, Alerts No Known Medication [...] tablet, 0 Refills, Maintenance, 05/28/23 8:20:00 EST, [facility] #[id number], 176.8, cm, 04/30/23 7:39:00 EST, Height, 127.4, kg, 05/17/22 4:58:00 EST, Dry Weight Start Date: 05/28/23 Stop Date: 06/07/23 Status: Ordered cyclobenzaprine 10 mg oral tablet 1, tablet, By Mouth, 3 times a day, PRN, # 60 tablet, Refills 0, Tot. Refills 0, Maintenance, NEEDED FOR SPASMS, 07/24/23 17:31:00 EDT, Route to Pharmacy Electronically, [facility] #[id number], 176.8, cm, 04/30/23 7:39:00 EST, Height, 127.4, k... Start Date: 07/24/23 Status: Ordered diclofenac sodium 75 mg oral delayed release tablet 1 tablet, By Mouth, 2 times a day with meals, DIRECTED., # 60 tablet, 5 Refills, Maintenance, 07/01/23 20:55:00 EST, [facility] #[id number], 176.8, cm, 04/30/23 7:39:00 EST, Height, 127.4, kg, 05/17/22 4:58:00 EST, Dry Weight Start Date: 07/01/23 Status: Ordered doxycycline hyclate 100 mg oral tablet 1 tablet, By Mouth, 2 times a day, # 28 tablet, 0 Refills, Maintenance, 07/16/23 17:07:00 EDT, [facility][id number], 176.8, cm, 04/30/23 7:39:00 EST, Height, 127.4, kg, 05/17/22 4:58:00 EST, Dry Weight Start Date: 07/16/23 Stop Date: 07/30/23 Status: Ordered EpiPen 2-Michael 0.3 mg injectable kit = 0.3 mg, Intramuscular, Once, PRN severe allergic reaction, may repeat if necessary, # 2 each, 0 Refills, Soft Stop, 01/24/23 12:05:00 EDT, [facility][id number], 176.8, cm, 01/24/23 10:59:00 EDT, Height, 127.4, kg, 05/17/22 4:58:00 EST, Dry We... Start Date: 01/24/23 Status: Ordered hydrOXYzine hydrochloride 50 mg oral tablet 1 tablet = 50 mg, By Mouth, 3 times a day, PRN as needed for itching, # 90 tablet, 1 Refills, Maintenance, 06/18/23 13:07:00 EST, [facility] #[id number], 176.8, cm, 04/30/23 7:39:00 EST, Height,127.4, kg, 05/17/22 4:58:00 EST, Dry Weight Start Date: 06/18/23 Status: Ordered hydrOXYzine hydrochloride 50 mg oral tablet 1 tablet = 50 mg, By Mouth, 3 times a day, # 90 tablet, 1 Refills, Maintenance, 04/25/23 11:23:00 EST, [facility] #[id number], 176.8, cm, 01/24/23 10:59:00 EDT, Height, 127.4, kg, 05/17/22 4:58:00 EST, Dry Weight Start Date: 04/25/23 Status: Ordered losartan 50 mg oral tablet 1 tablet, By Mouth, Daily, # 90 tablet, 1 Refills, Maintenance, 06/05/23 18:32:00 EST, [facility] #[id number], 176.8, cm, 04/30/23 7:39:00 EST, Height, 127.4, kg, 05/17/22 4:58:00 EST, Dry Weight Start Date: 06/05/23 Status: Ordered metFORMIN 750 mg oral tablet, extended release 1 tablet = 750 mg, By Mouth, Daily, # 90 tablet, 1 Refills, Maintenance, 05/19/23 11:12:00 EST, ER Tablet, [facility] #[id number], Partial fill upon patient request if the prescription is for a schedule II opioid drug., 176.8, cm, 04/30/23 7:39:0... Start Date: 05/19/23 Status: Ordered mupirocin 2% topical ointment See Instructions, APPLY TOPICALLY TO THE AFFECTED AREA THREE TIMES DAILY FOR 14 DAYS, # 22 Gm, 0 Refills, Maintenance, 06/03/23 13:22:00 EST, [facility] #[id number], APPLY TOPICALLY TO THE AFFECTED AREA THREE TIMES DAILY FOR 14 DAYS, 176.8, cm, 0... Start Date: 06/03/23 Status: Ordered oxyCODONE 5 mg oral tablet 5 mg, 1, tablet, By Mouth, Every 8 hours, PRN, mass pat ok, ok for less. TAKE ONLY NEEDED DNF 07/24/2023, # 45 tablet, Refills 0, Tot. Refills 0, Maintenance, Pain , Moderate, 07/21/23 13:50:00 EDT, Route to Pharmacy Electronically, [facility]... Start Date: 07/21/23 Stop Date: 08/05/23 Status: Ordered predniSONE 20 mg oral tablet See Instructions, 2 tablets By Mouth Daily for 5 days and then 1 tablet by mouth daily for 5 days, # 15 tablet, 0 Refills, Soft Stop, 01/08/23 16:53:00 EDT, Tablet, [facility] #[id number], Partial fill upon patient request if the prescription is... Start Date: 01/08/23 Status: Ordered triamcinolone 0.025% topical ointment 1 application, Topically, 3 times a day, Apply to affected area, # 15 Gm, 1 Refills, Maintenance, 06/03/23 9:33:00 EST, Ointment, [facility] #[id number], Partial fill upon patient request if theprescription is for a schedule II opioid drug., 1 a... Start Date: 06/03/23 Status: Ordered Ventolin HFA 108 mcg/inh inhalation aerosol with adapter 2 puffs, Inhalation, Every 6 hours, # 18 Gm, 5 Refills, Maintenance, 05/25/23 6:11:00 EST, [facility] #[id number], 176.8, cm, 04/30/23 7:39:00 EST, Height, 127.4, [...] MD Position: [facility] Physician - Primary Care Member Role: PCP Address: Address: [address] [place] [id number] Name: Bhumika Castillo RN Position: [facility] RN Member Role: Primary Care Nurse Name: Jaja Arshad RN Position: S RN Member Role: Primary Care Nurse Name: Ludwin Butcher RN Position: S RN Member Role: Primary Care Nurse Care Team Related Persons Name: GARRETT FUENTES Address: home [address] [place] [address] Name: MARLO REINOSO Name: PT STS, NONE Name: EFFIE RICKETTS Name: RADNALL RICKETTS
--- OUTSIDE RECORDS SUMMARY | 2023-09-25 00:27 | XMS_ITS | Continuity of Care Document ---
Author Organization [facility] Address [address] [place] [address]- Care Team Providers Care Banking Assistant Name Role Phone Margarito Berger MD Primary Care Physician Encounter [facility] [place] Date(s): 06/18/23 - 07/18/23 [facility] [address] [place] [address]- Allergies, Adverse Reactions, Alerts No Known Medication [...] tablet, 0 Refills, Maintenance, 05/28/23 8:20:00 EST, [facility] #[id number], 176.8, cm, 04/30/23 7:39:00 EST, Height, 127.4, kg, 05/17/22 4:58:00 EST, Dry Weight Start Date: 05/28/23 Stop Date: 06/07/23 Status: Ordered cyclobenzaprine 10 mg oral tablet 1, tablet, By Mouth, 3 times a day, PRN, # 60 tablet, Refills 0, Maintenance, NEEDED FOR SPASMS,06/30/23 15:04:00 EST, Route to Pharmacy Electronically, [facility] #[id number], 176.8, cm, 04/30/23 7:39:00 EST, Height, 127.4, kg, 05/17/22 4:58... Start Date: 06/30/23 Status: Ordered diclofenac sodium 75 mg oral delayed release tablet 1 tablet, By Mouth, 2 times a day with meals, DIRECTED., # 60 tablet, 5 Refills, Maintenance, 07/01/23 20:55:00 EST, [facility] #[id number], 176.8, cm, 04/30/23 7:39:00 EST, Height, 127.4, kg, 05/17/22 4:58:00 EST, Dry Weight Start Date: 07/01/23 Status: Ordered doxycycline hyclate 100 mg oral tablet 1 tablet, By Mouth, 2 times a day, # 28 tablet, 0 Refills, Maintenance, 07/16/23 17:07:00 EDT, [facility] #[id number], 176.8, cm, 04/30/23 7:39:00 EST, Height, 127.4, kg, 05/17/22 4:58:00 EST, Dry Weight Start Date: 07/16/23 Stop Date: 07/30/23 Status: Ordered EpiPen 2-Michael 0.3 mg injectable kit = 0.3 mg, Intramuscular, Once, PRN severe allergic reaction, may repeat if necessary, # 2 each, 0 Refills, Soft Stop, 01/24/23 12:05:00 EDT, [facility] #[id number], 176.8, cm, 01/24/23 10:59:00 EDT, Height, 127.4, kg, 05/17/22 4:58:00 EST, Dry We... Start Date: 01/24/23 Status: Ordered hydrOXYzine hydrochloride 50 mg oral tablet 1 tablet = 50 mg, By Mouth, 3 times a day, PRN as needed for itching, # 90 tablet, 1 Refills, Maintenance, 06/18/23 13:07:00 EST, [facility] #[id number], 176.8, cm, 04/30/23 7:39:00 EST, Height,127.4, kg, 05/17/22 4:58:00 EST, Dry Weight Start Date: 06/18/23 Status: Ordered hydrOXYzine hydrochloride 50 mg oral tablet 1 tablet = 50 mg, By Mouth, 3 times a day, # 90 tablet, 1 Refills, Maintenance, 04/25/23 11:23:00 EST, [facility] #[id number], 176.8, cm, 01/24/23 10:59:00 EDT, Height, 127.4, kg, 05/17/22 4:58:00 EST, Dry Weight Start Date: 04/25/23 Status: Ordered losartan 50 mg oral tablet 1 tablet, By Mouth, Daily, # 90 tablet, 1 Refills, Maintenance, 06/05/23 18:32:00 EST, [facility] #[id number], 176.8, cm, 04/30/23 7:39:00 EST, Height, 127.4, kg, 05/17/22 4:58:00 EST, Dry Weight Start Date: 06/05/23 Status: Ordered metFORMIN 750 mg oral tablet, extended release 1 tablet = 750 mg, By Mouth, Daily, # 90 tablet, 1 Refills, Maintenance, 05/19/23 11:12:00 EST, ER Tablet, [facility] #[id number], Partial fill upon patient request if the prescription is for a schedule II opioid drug., 176.8, cm, 04/30/23 7:39:0... Start Date: 05/19/23 Status: Ordered mupirocin 2% topical ointment See Instructions, APPLY TOPICALLY TO THE AFFECTED AREA THREE TIMES DAILY FOR 14 DAYS, # 22 Gm, 0 Refills, Maintenance, 06/03/23 13:22:00 EST, [facility] #[id number], APPLY TOPICALLY TO THE AFFECTED AREA THREE TIMES DAILY FOR 14 DAYS, 176.8, cm, 0... Start Date: 06/03/23 Status: Ordered oxyCODONE 5 mg oral tablet 5 mg, 1, tablet, By Mouth, Every 8 hours, PRN, mass pat ok, ok for less. TAKE ONLY NEEDED DNF 07/08/2023, # 45 tablet, Refills 0, Tot. Refills 0, Maintenance, Pain , Moderate, 07/07/23 13:46:00 EDT, Route to Pharmacy Electronically, [facility]... Start Date: 07/07/23 Stop Date: 07/22/23 Status: Ordered predniSONE 20 mg oral tablet See Instructions, 2 tablets By Mouth Daily for 5 days and then 1 tablet by mouth daily for 5 days, # 15 tablet, 0 Refills, Soft Stop, 01/08/23 16:53:00 EDT, Tablet, [facility] #[id number], Partial fill upon patient request if the prescription is... Start Date: 01/08/23 Status: Ordered triamcinolone 0.025% topical ointment 1 application, Topically, 3 times a day, Apply to affected area, # 15 Gm, 1 Refills, Maintenance, 06/03/23 9:33:00 EST, Ointment, [facility] #[id number], Partial fill upon patient request if theprescription is for a schedule II opioid drug., 1 a... Start Date: 06/03/23 Status: Ordered Ventolin HFA 108 mcg/inh inhalation aerosol with adapter 2 puffs, Inhalation, Every 6 hours, # 18 Gm, 5 Refills, Maintenance, 05/25/23 6:11:00 EST, [facility] #[id number], 176.8, cm, 04/30/23 7:39:00 EST, Height, 127.4, [...] Team Personnel Name: Margarito Berger MD Position: [facility] Physician - Primary Care Member Role: PCP Address: Address: [address] [place] [address] Name: Bhumika Castillo RN Position: [facility] RN Member Role: Primary Care Nurse Name: Jaja Arshad RN Position: S RN Member Role: Primary Care Nurse Name: Ludwin Butcher RN Position: [facility] RN Member Role: Primary Care Nurse Care Team Related Persons Name: GARRETT FUENTES Address: home [address] [place] [address] Name: MARLO REINOSO Name: PT STS, NONE Name: EFFIE RICKETTS Name: RANDALL RICKETTS
--- OUTSIDE RECORDS SUMMARY | 2023-09-25 00:27 | XMS_ITS | Continuity of Care Document ---
Author Organization [facility] Address [address] [place] [address]- Care Team Providers Care Tool Die Maker Name Role Phone Margarito Berger MD Primary Care Physician Encounter [facility] [place] Date(s): 04/03/22 - 05/03/22 [facility] [address] [place] [address]- Allergies, Adverse Reactions, Alerts No Known Medication [...] Tot. Refills 1, Maintenance, Pain , Moderate, 04/23/22 10:40:00 EST, Route to Pharmacy Electronically, [facility] #[id number], Partial fill upon patient request if the prescr... Start Date: 04/23/22 Status: Ordered EpiPen 2-Michael 0.3 mg injectable kit = 0.3 mg, Intramuscular, Once, PRN severe allergic reaction, may repeat if necessary, # 2 each, 0 Refills, Soft Stop, 11/06/20 13:52:00 EDT, [facility] #[id number], 176.8, cm, 11/06/20 13:38:00 EDT, Height, 140.3, kg, 11/06/20 13:38:00 EDT, Dry W... Start Date: 11/06/20 Status: Ordered hydrOXYzine hydrochloride 50 mg oral tablet See Instructions, TAKE 1 TABLET BY MOUTH FOUR TIMES DAILY FOR 12 DAYS NEEDED FOR ANXIETY, # 48 tablet, 0 Refills, Maintenance, 04/12/22 12:47:00 EST, [facility] #[id number], 176.8, cm, 02/28/22 10:47:00 EDT, Height, 123.4, kg, 10/12/21 15:16:0... Start Date: 04/12/22 Status: Ordered hydrOXYzine hydrochloride 50 mg oral tablet See Instructions, TAKE 1 TABLET BY MOUTH FOUR TIMES DAILY FOR 12 DAYS NEEDED FOR ANXIETY, # 48 tablet, 0 Refills, Maintenance, 01/15/22 17:07:00 EDT, [facility] #[id number], 176.8, cm, 01/04/22 15:55:00 EDT, Height, 123.4, kg, 10/12/21 15:16:0... Start Date: 01/15/22 Status: Ordered ibuprofen 800 mg oral tablet 1, tablet, By Mouth, 3 times a day, PRN, TAKE WITH FOOD OR MILK., # 90 tablet, Refills 5, Maintenance, NEEDED FOR PAIN(, 01/04/22 10:09:00 EDT, Route to Pharmacy Electronically, [facility] #[id number], 176.8, cm, 12/14/21 16:29:00 EDT, Height,... Start [...] Mouth, Daily, # 30 tablet, 5 Refills, [facility] #[id number], 176.8, cm, 11/05/2214:43:00 EDT, Height, 123.4, kg, 10/12/21 15:16:00 EDT, Dry Weight Start Date: 11/13/21 Status: Ordered magnesium oxide 250 mg oral tablet See Instructions, TAKE 1 TABLET BY MOUTH DAILY AT BEDTIME FOR 14 DAYS, # 14 tablet, 0 Refills, Maintenance, 02/08/22 13:01:00 EDT, [facility] #[id number], 176.8, cm, 01/04/22 15:55:00 EDT, Height, 123.4, kg, 10/12/21 15:16:00 EDT, Dry Weight Start Date: 02/08/22 Status: Ordered magnesium oxide 250 mg oral tablet See Instructions, TAKE 1 TABLET BY MOUTH DAILY AT BEDTIME FOR 14 DAYS, # 14 tablet, 0 Refills, Maintenance, 01/04/22 15:54:00 EDT, [facility] #[id number], 176.8, cm, 12/14/21 16:29:00 EDT, Height, 123.4, kg, 10/12/21 15:16:00 EDT, Dry Weight Start Date: 01/04/22 Status: Ordered magnesium oxide 250 mg oral tablet See Instructions, TAKE 1 TABLET BY MOUTH DAILY AT BEDTIME FOR 14 DAYS, # 14 tablet, 0 Refills, Maintenance, 04/02/22 7:31:00 EST, [facility] #[id number], 176.8, cm, 02/28/22 10:47:00 EDT, Height, 123.4, kg, 10/12/21 15:16:00 EDT, Dry Weight Start Date: 04/02/22 Status: Ordered metFORMIN 750 mg oral tablet, extended release 1 tablet, By Mouth, Daily, # 60 tablet, 5 Refills, [facility] #[id number], 176.8, cm, 02/02/2116:07:00 EDT, Height, 140.3, kg, 11/06/20 13:38:00 EDT, Dry Weight Start Date: 03/30/21 Status: Ordered metFORMIN 750 mg oral tablet, extended release See Instructions, TAKE 1 TABLET BY MOUTH DAILY, # 60 tablet, 6 Refills, Maintenance, 03/29/22 19:08:00 EST, [facility] #[id number], 176.8, cm, 02/28/22 10:47:00 EDT, Height, 123.4, kg, 10/12/21 15:16:00 EDT, Dry Weight Start Date: 03/29/22 Status: Ordered oxyCODONE 5 mg oral tablet 5 mg, 1, tablet, By Mouth, Every 8 hours, PRN, mass pat ok, ok for less. Take only as needed., # 45tablet, Refills 0, Tot. Refills 0, Maintenance, Pain , Moderate, 09/28/21 17:08:00 EDT, Route to Pharmacy Electronically, [facility] #[id number],... Start Date: 09/28/21 Stop Date: 10/13/21 Status: Ordered oxyCODONE 5 mg oral tablet 5 mg, 1, tablet, By Mouth, Every 8 hours, PRN, for 30 days, mass pat ok, ok for less. Take only as needed., # 45 tablet, Refills 0, Tot. Refills 0, Hard Stop 05/10/22 13:29:00 EST, Pain , Moderate, 04/10/22 13:29:00 EST, Route to Pharmacy Electronical... Start Date: 04/10/22 Stop Date: 05/10/22 Status: Ordered oxyCODONE 5 mg oral tablet 5 mg, 1, tablet, By Mouth, Every 8 hours, PRN, mass pat ok, ok for less. Take only as needed., # 45tablet, Refills 0, Tot. Refills 0, Maintenance, Pain , Moderate, 04/19/22 9:57:00 EST, Route to Pharmacy Electronically, [facility] #[id number], P... Start Date: 04/19/22 Stop Date: 05/19/22 Status: Ordered phentermine 30 mg oral capsule 1 capsule = 30 mg, By Mouth, Daily in AM, for 30 days, # 30 capsule, 0 Refills, Acute 05/19/22 7:37:00 EST, 04/19/22 7:37:00 EST, Capsule, [facility] #[id number], Partial fill upon patient request if the prescription is for a schedule II opioid drug... Start Date: 04/19/22 Stop Date: 05/19/22 Status: Ordered ProAir HFA 90 mcg/inh inhalation aerosol with adapter 2, puffs, Inhalation, Every 6 hours, PRN, # 8.5 Gm, Refills 5, Tot. Refills 5, 04/09/22 15:33:00 EST, Route to Pharmacy Electronically, [id number], [facility] #[id number], 176.8, cm, 02/28/22 10:47:00 EDT, Height, 123.4,... Start Date: 04/09/22 Status: Ordered triamcinolone 0.1% topical cream See Instructions, APPLY TOPICALLY TO THE AFFECTED AREA ON ARMS AND LEGS THREE TIMES DAILY. MIX WITH16 OUNCES OF EUCERIN CREAM, # 80 Gm, 0 Refills, [facility] #[id number], 14, APPLY TOPICALLY TOTHE AFFECTED AREA ON [...] Prediabetes Confirmed Active Severe obesity Confirmed Active Severe obesity (BMI 35.0-39.9) with comorbidity Confirmed Active Social History Social History Type Response Smoking Status 5-9 cigarettes (betw een 1/4 to 1/2 pack)/day in last 30 days; Tobacco use times per day: 7; entered on: 12/31/18 Sex Patient Care team information Care Team Personnel Name: Margarito Berger MD Position: S Primary Care Physician Member Role: PCP Address: Address: [facility] [place] [address]- Care Team Related Persons Name: GARRETT FUENTES Address: home [address] [address] Name: MARLO REINOSO Name: PT STS, NONE
--- OUTSIDE RECORDS SUMMARY | 2023-09-25 00:28 | XMS_ITS | Continuity of Care Document ---
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 Name Role Phone Margarito Berger MD Primary Care Physician Encounter [facility] Date(s): 06/05/23 - 07/05/23 [facility] [address] [place] [address]- Allergies, Adverse Reactions, Alerts No Known Medication [...] tablet, 0 Refills, Maintenance, 05/28/23 8:20:00 EST, [facility] #[id number], 176.8, cm, 04/30/23 7:39:00 EST, Height, 127.4, kg, 05/17/22 4:58:00 EST, Dry Weight Start Date: 05/28/23 Stop Date: 06/07/23 Status: Ordered cyclobenzaprine 10 mg oral tablet 1, tablet, By Mouth, 3 times a day, PRN, # 60 tablet, Refills 0, Maintenance, NEEDED FOR SPASMS,06/30/23 15:04:00 EST, Route to Pharmacy Electronically, [facility] #[id number], 176.8, cm, 04/30/23 7:39:00 EST, Height, 127.4, kg, 05/17/22 4:58... Start Date: 06/30/23 Status: Ordered diclofenac sodium 75 mg oral delayed release tablet 1 tablet, By Mouth, 2 times a day with meals, DIRECTED., # 60 tablet, 5 Refills, Maintenance, 07/01/23 20:55:00 EST, [facility] #[id number], 176.8, cm, 04/30/23 7:39:00 EST, Height, 127.4, kg, 05/17/22 4:58:00 EST, Dry Weight Start Date: 07/01/23 Status: Ordered doxycycline hyclate 100 mg oral tablet 1 tablet, By Mouth, 2 times a day, # 28 tablet, 0 Refills, Maintenance, 05/28/23 8:20:00 EST, [facility] #[id number], 176.8, cm, 04/30/23 7:39:00 EST, Height, 127.4, kg, 05/17/22 4:58:00 EST, Dry Weight Start Date: 05/28/23 Stop Date: 06/11/23 Status: Ordered EpiPen 2-Michael 0.3 mg injectable kit = 0.3 mg, Intramuscular, Once, PRN severe allergic reaction, may repeat if necessary, # 2 each, 0 Refills, Soft Stop, 01/24/23 12:05:00 EDT, [facility] #[id number], 176.8, cm, 01/24/23 10:59:00 EDT, Height, 127.4, kg, 05/17/22 4:58:00 EST, Dry We... Start Date: 01/24/23 Status: Ordered hydrOXYzine hydrochloride 50 mg oral tablet 1 tablet = 50 mg, By Mouth, 3 times a day, PRN as needed for itching, # 90 tablet, 1 Refills, Maintenance, 06/18/23 13:07:00 EST, [facility] #[id number], 176.8, cm, 04/30/23 7:39:00 EST, Height,127.4, kg, 05/17/22 4:58:00 EST, Dry Weight Start Date: 06/18/23 Status: Ordered hydrOXYzine hydrochloride 50 mg oral tablet 1 tablet = 50 mg, By Mouth, 3 times a day, # 90 tablet, 1 Refills, Maintenance, 04/25/23 11:23:00 EST, [facility] #[id number], 176.8, cm, 01/24/23 10:59:00 EDT, Height, 127.4, kg, 05/17/22 4:58:00 EST, Dry Weight Start Date: 04/25/23 Status: Ordered losartan 50 mg oral tablet 1 tablet, By Mouth, Daily, # 90 tablet, 1 Refills, Maintenance, 06/05/23 18:32:00 EST, [facility] #[id number], 176.8, cm, 04/30/23 7:39:00 EST, Height, 127.4, kg, 05/17/22 4:58:00 EST, Dry Weight Start Date: 06/05/23 Status: Ordered metFORMIN 750 mg oral tablet, extended release 1 tablet = 750 mg, By Mouth, Daily, # 90 tablet, 1 Refills, Maintenance, 05/19/23 11:12:00 EST, ER Tablet, [facility] #[id number], Partial fill upon patient request if the prescription is for a schedule II opioid drug., 176.8, cm, 04/30/23 7:39:0... Start Date: 05/19/23 Status: Ordered mupirocin 2% topical ointment See Instructions, APPLY TOPICALLY TO THE AFFECTED AREA THREE TIMES DAILY FOR 14 DAYS, # 22 Gm, 0 Refills, Maintenance, 06/03/23 13:22:00 EST, [facility] #[id number], APPLY TOPICALLY TO THE AFFECTED AREA THREE TIMES DAILY FOR 14 DAYS, 176.8, cm, 0... Start Date: 06/03/23 Status: Ordered oxyCODONE 5 mg oral tablet 5 mg, 1, tablet, By Mouth, Every 8 hours, PRN, mass pat ok, ok for less. TAKE ONLY NEEDED DNF 06/22/2023, # 45 tablet, Refills 0, Tot. Refills 0, Maintenance, Pain , Moderate, 06/23/23 7:57:00 EST, Route to Pharmacy Electronically, [facility]... Start Date: 06/23/23 Stop Date: 07/08/23 Status: Ordered predniSONE 20 mg oral tablet See Instructions, 2 tablets By Mouth Daily for 5 days and then 1 tablet by mouth daily for 5 days, # 15 tablet, 0 Refills, Soft Stop, 01/08/23 16:53:00 EDT, Tablet, [facility] #[id number], Partial fill upon patient request if the prescription is... Start Date: 01/08/23 Status: Ordered triamcinolone 0.025% topical ointment 1 application, Topically, 3 times a day, Apply to affected area, # 15 Gm, 1 Refills, Maintenance, 06/03/23 9:33:00 EST, Ointment, [facility] #[id number], Partial fill upon patient request if theprescription is for a schedule II opioid drug., 1 a... Start Date: 06/03/23 Status: Ordered Ventolin HFA 108 mcg/inh inhalation aerosol with adapter 2 puffs, Inhalation, Every 6 hours, # 18 Gm, 5 Refills, Maintenance, 05/25/23 6:11:00 EST, [facility] #[id number], 176.8, cm, 04/30/23 7:39:00 EST, Height, 127.4, [...] Team Personnel Name: Margarito Berger MD Position: [facility] Physician - Primary Care Member Role: PCP Address: Address: [address] [place] [id number] Name: Bhumika Castillo RN Position: [facility] RN Member Role: Primary Care Nurse Name: Jaja Arshad RN Position: S RN Member Role: Primary Care Nurse Name: Ludwin Butcher RN Position: S RN Member Role: Primary Care Nurse Care Team Related Persons Name: GARRETT FUENTES Address: home [address] [place] [address] Name: MARLO REINOSO Name: PT STS, NONE Name: EFFIE RICKETTS Name: RANDALL RICKETTS
--- OUTSIDE RECORDS SUMMARY | 2023-09-25 00:28 | XMS_ITS | Continuity of Care Document ---
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 Start Date: 08/13/22 Status: Ordered cyclobenzaprine 10 mg oral tablet 10 mg, 1, tablet, By Mouth, 3 times a day, PRN spasms, # 60 tablet, Refills 0, Tot. Refills 0, Acute 08/24/22 12:00:00 EDT, 07/24/22 16:55:00 EDT, Route to Pharmacy Electronically, [facility] #[id number], Partial fill upon patient request if the... Start Date: 07/24/22 Stop Date: 08/24/22 Status: Ordered EpiPen 2-Michael 0.3 mg injectable kit = 0.3 mg, Intramuscular, Once, PRN severe allergic reaction, may repeat if necessary, # 2 each, 0 Refills, Soft Stop, 11/06/20 13:52:00 EDT, [facility] #[id number], 176.8, cm, 11/06/20 13:38:00 EDT, Height, 140.3, kg, 11/06/20 13:38:00 EDT, Dry W... Start Date: 11/06/20 Status: Ordered hydrOXYzine hydrochloride 50 mg oral tablet See Instructions, TAKE 1 TABLET BY MOUTH FOUR TIMES DAILY FOR 12 DAYS NEEDED FOR ANXIETY, # 48 tablet, 0 Refills, Maintenance, 06/14/22 15:46:00 EST, [facility] #[id number], 176.8, cm, 05/01/22 13:41:00 EST, Height, 127.4, kg, 05/17/22 4:58:00... Start Date: 06/14/22 Status: Ordered hydrOXYzine hydrochloride 50 mg oral tablet See Instructions, TAKE 1 TABLET BY MOUTH FOUR TIMES DAILY FOR 12 DAYS NEEDED FOR ANXIETY, # 48 tablet, 0 Refills, Maintenance, 07/01/22 17:28:00 EST, [facility] #[id number], 176.8, cm, 05/01/22 13:41:00 EST, Height, 127.4, kg, 05/17/22 4:58:00... Start Date: 07/01/22 Status: Ordered hydrOXYzine hydrochloride 50 mg oral tablet 1 tablet = 50 mg, By Mouth, 3 times a day, # 60 tablet, 1 Refills, Maintenance, 07/24/22 16:54:00 EDT, [facility] #[id number], 176.8, cm, 05/01/22 13:41:00 EST, Height, 127.4, kg, 05/17/22 4:58:00 EST, Dry Weight Start Date: 07/24/22 Status: Ordered hydrOXYzine pamoate 50 mg oral capsule 1 capsule = 50 mg, By Mouth, Every 6 hours, PRN Anxiety, 0 Refills, Maintenance, 05/18/22 7:58:00 EST, Capsule, Partial fill upon patient request if the prescription is for a schedule II opioid drug. Start Date: 05/18/22 Status: Ordered Inhaler Spacer Inhaler Spacer , [...] tablet, 1 Refills, Maintenance, 06/03/22 11:27:00 EST, [facility] #[id number], 176.8, cm, 05/01/22 13:41:00 EST, Height, 127.4, [...] Refills 0, Tot. Refills 0, Hard Stop 08/20/22 16:50:00 EDT, Pain , Moderate, 08/05/22 16:50:00 EDT, Route to Pharmacy [facility]... Start Date: 08/05/22 Stop Date: 08/20/22 Status: Ordered oxyCODONE 5 mg oral tablet 5 mg, 1, tablet, By Mouth, Every 8 hours, PRN, mass pat ok, ok for less. TAKE ONLY NEEDED, # 45 tablet, Refills 0, Tot. Refills 0, Maintenance, Pain , Moderate, 08/20/22 16:50:00 EDT, Route to Pharmacy Electronically, [facility] #[id number], P... Start Date: 08/20/22 Stop Date: 09/04/22 Status: Ordered pantoprazole 40 mg oral delayed release tablet = 40 mg, By Mouth, Daily in AM, 0 Refills, Maintenance, 05/18/22 7:55:00 EST, [facility] Tablet Start Date: 05/18/22 Status: Ordered ProAir HFA 90 mcg/inh inhalation aerosol with adapter 2, puffs, Inhalation, Every 6 hours, PRN, # 8.5 Gm, Refills 5, Tot. Refills 5, 04/09/22 15:33:00 EST, Route to Pharmacy Electronically, [id number], [facility] #[id number], 176.8, cm, 02/28/22 10:47:00 EDT, Height, 123.4,... [...] Team Personnel Name: Margarito Berger MD Position: [facility] Primary Care Physician Member Role: PCP Address: Address: [address] [place] [address] Name: Bhumika Castillo RN Position: [facility] SN RN Member Role: Primary Care Nurse Name: Jaja Arshad RN Position: [facility] RN Member Role: Primary Care Nurse Name: Ludwin Butcher RN Position: [facility] RN Member Role: Primary Care Nurse Care Team Related Persons Name: GARRETT FUENTES Address: home [address] [place] [address] Name: MARLO REINOSO Name: PT STS, NONE Name: EFFIE RICKETTS Name: RANDALL RICKETTS
--- OUTSIDE RECORDS SUMMARY | 2023-09-25 00:28 | XMS_ITS | Continuity of Care Document ---
Author Organization [facility] Address [address] [place] [address]- Care Team Providers Care Rn Advanced Name Role Phone Margarito Berger MD Primary Care Physician [place] [facility] [place] Date(s[place] 04/16/21 - 04/23/21 [facility] [address] [place] [address]- Encounter Diagnosis Swelling of right elbow joint(Discharge Diagnosis) - 04/16/21 Right leg swelling(Discharge Diagnosis) - 04/16/21 Morbid obesity(Discharge Diagnosis) - 04/16/21 BMI 45.0-49.9, adult(Discharge Diagnosis) - 04/16/21 SKIP - Obstructive sleep apnea(Discharge Diagnosis) - 04/16/21 Chronic knee pain(Discharge Diagnosis) - 04/16/21 Hypertension(Discharge Diagnosis) - 04/16/21 Attending Physician: Margarito Berger MD Allergies, Adverse Reactions, Alerts No Known Medication Allergies Substance Reaction Severity Status Seafood Active Other Food Allergy tuna fish Active Immunizations Given and Recorded Vaccine Date Status Refusal Reason SARS-CoV-2 (COVID-19) mRNA BNT-162b2 vac 09/17/20 Recorded SARS-CoV-2 (COVID-19) mRNA BNT-162b2 vac 08/27/20 Recorded tetanus/diphtheria/pertussis, acel(Tdap) 01/23/11 Given Medications albuterol 90 mcg/inh inhalation powder 2 puffs, Inhalation, Every 6 hours, PRN as needed, # 1 each, 6 Refills, Maintenance, 01/08/21 12:55:00 EDT, [facility] #[id number], Partial fill upon patient request if the prescription is for a schedule II opioid drug., 2 puffs Inhalatio... Start Date: 01/08/21 Status: Ordered EpiPen 2-Michael 0.3 mg injectable kit = 0.3 mg, Intramuscular, Once, PRN severe allergic reaction, may repeat if necessary, # 2 each, 0 Refills, Soft Stop, 11/06/20 13:52:00 EDT, [facility] #[id number], 176.8, cm, 11/06/20 13:38:00 EDT, Height, 140.3, kg, 11/06/20 13:38:00 EDT, Dry W... Start Date: 11/06/20 Status: Ordered hydrOXYzine hydrochloride 50 mg oral tablet See Instructions, TAKE 1 TABLET BY MOUTH FOUR TIMES DAILY NEEDED FOR ANXIETY, # 40 tablet, 0 Refills, Acute 05/16/21 8:11:00 EST, 04/18/21 8:09:00 EST, [facility] #[id number], 176.8, cm, 04/16/21 14:48:00 EST, Height, 140.3, kg, 11/06/20 13:38... Start Date: 04/18/21 Stop Date: 05/16/21 Status: Ordered hydrOXYzine hydrochloride 50 mg oral tablet See Instructions, TAKE 1 TABLET BY MOUTH FOUR TIMES DAILY NEEDED FOR ANXIETY., # 40 tablet, 0 Refills, Maintenance, 03/23/21 12:03:00 EST, [facility] #[id number], 176.8, cm, 02/01/21 16:07:00EDT, Height, 140.3, kg, 11/06/20 13:38:00 EDT, Dry... Start Date: 03/23/21 Status: Ordered hydrOXYzine hydrochloride 50 mg oral tablet See Instructions, TAKE 1 TABLET BY MOUTH FOUR TIMES DAILY NEEDED FOR ANXIETY., # 40 tablet, 0 Refills, [facility] #[id number], 176.8, cm, 01/08/21 12:47:00 EDT, Height, 140.3, kg, 11/06/20 13:38:00 EDT, Dry Weight Start Date: 01/08/21 Status: Ordered hydrOXYzine pamoate 25 mg oral capsule 1 capsule = 25 mg, By Mouth, 4 times a day, PRN for anxiety, # 40 capsule, 0 Refills, Maintenance, 12/29/20 9:19:00 EDT, Capsule, Partial fill upon patient request if the prescription is for a schedule II opioid drug. Start Date: 12/29/20 Status: Ordered ibuprofen 800 mg oral tablet 800 mg, 1, tablet, By Mouth, 3 times a day, PRN, with food or milk, # 90 tablet, Refills 2, Tot. Refills 2, Maintenance, as needed for pain, 04/10/21 11:47:00 EST, Route to Pharmacy Electronically, [facility] #[id number], 176.8, cm, 02/01/21 16:0... Start Date: 04/10/21 Status: Ordered Inhaler Spacer Inhaler Spacer , See Instructions, # 1 each, Refills 0, Tot. Refills 0, Maintenance, For use with Albuterol inhaler, as needed, 01/15/21 16:35:00 EDT, Supply, 176.8, cm, 01/08/21 12:47:00 EDT, Height, 140.3, kg, 11/06/20 13:38:00 EDT, Dry Weight Start Date: 01/15/21 Status: Ordered lisinopril 10 mg oral tablet 10 mg, 1, tablet, By Mouth, Daily, # 30 tablet, Refills 2, Tot. Refills 2, Maintenance, 02/26/21 14:39:00 EDT, Route to Pharmacy Electronically, [facility] #[id number], Partial fill upon patientrequest if the prescription is for a schedule II op... Start Date: 02/26/21 Stop Date: 05/27/21 Status: Ordered losartan 50 mg oral tablet 50 mg, 1, tablet, By Mouth, Daily, # 30 tablet, Refills 3, Tot. Refills 3, Maintenance, 11/22/20 14:41:00 EDT, Route to Pharmacy Electronically, [facility] #[id number], Partial fill upon patientrequest if the prescription is for a schedule II op... Start Date: 11/22/20 Status: Ordered losartan 50 mg oral tablet 1 tablet = 50 mg, By Mouth, Daily, for 30 days, # 30 tablet, 5 Refills, Physician Stop 10/13/21 14:50:00 EDT, 04/16/21 14:50:00 EST, [facility] #[id number], 176.8, cm, 02/01/21 16:07:00 EDT, Height, 140.3, kg, 11/06/20 13:38:00 EDT, Dry Weight Start Date: 04/16/21 Stop Date: 10/13/21 Status: Ordered metFORMIN 750 mg oral tablet, extended release 1 tablet, By Mouth, Daily, # 60 tablet, 5 Refills, [facility] #[id number], 176.8, cm, 02/02/2116:07:00 EDT, Height, 140.3, kg, 11/06/20 13:38:00 EDT, Dry Weight Start Date: 03/30/21 Status: Ordered phentermine 30 mg oral capsule 1 capsule = 30 mg, By Mouth, Daily in AM, for 30 days, # 30 capsule, 0 Refills, Acute 05/16/21 15:25:00 EST, 04/16/21 15:25:00 EST, Capsule, [facility] #[id number], Partial fill upon patient request if the prescription is for a schedule II opioid... Start Date: 04/16/21 Stop Date: 05/16/21 Status: Ordered triamcinolone 0.1% topical cream See Instructions, APPLY TOPICALLY TO THE AFFECTED AREA ON ARMS AND LEGS THREE TIMES DAILY FOR 14 DAYS. MIX WITH 16 OUNCES EUCERIN CREAM, # 80 Gm, 0 Refills, Maintenance, 03/23/21 12:03:00 EST, [facility] #[id number], 25, APPLY TOPICALLY TO THE AF... Start Date: 03/23/21 Status: Ordered Problem List Condition Effective Dates Status Health Status Inform ant BMI 45.0-49.9, adult(Confirmed) Active Chronic knee pain(Confirmed) Active Chronic low back pain(Confirmed) Active Daytime sleepiness(Confirmed) Active Hypertension(Confirmed) Active Morbid obesity(Confirmed) Active SKIP - Obstructive sleep apnea(Confirmed) Active Prediabetes(Confirmed) Active Severe obesity(Confirmed) Active Diagnosis Diagnosis Type Effective Dates Health Status Clinical Service Informant Swelling of right elbow joint Discharge Diagnosis 04/16/21 Right leg swelling Discharge Diagnosis 04/16/21 Morbid obesity Discharge Diagnosis 04/16/21 BMI 45.0-49.9, adult Discharge Diagnosis 04/16/21 SKIP - Obstructive sleep apnea Discharge Diagnosis 04/16/21 Chronic knee pain Discharge Diagnosis 04/16/21 Hypertension Discharge Diagnosis 04/16/21 Vital Signs Most recent to oldest [Reference Range]: 1 Height 176.8 cm (04/16/21 2:48 PM) Weight 149.8 kg (04/16/21 2:48 PM) Oxygen Saturation [94-100 %] 95 % (04/16/21 2:48 PM) Pulse Rate [55-90 bpm] 108 bpm *H* (04/16/21 2:48 PM) Body Mass Index [18.5-24.99] 47.92 *>HHI* (04/16/21 2:48 PM) Blood Pressure [90-138/55-84 mm Hg] 120/ 76mm Hg (04/16/21 2:48 PM) Mode of Delivery (Oxygen) Room air (04/16/21 2:48 PM) Blood pressure sites Arm, left (04/16/21 2:48 PM) Weight Obtained Via Standing scale (04/16/21 2:48 PM) Social History Social History Type Response Smoking Status 5-9 cigarettes (betw een 1/4 to 1/2 pack)/day in last 30 days; Tobacco use times per day: 7; entered on: 12/31/18 Sex
--- OUTSIDE RECORDS SUMMARY | 2023-09-25 00:28 | XMS_ITS | Continuity of Care Document ---
Author Organization [facility] Address [address] [place] [address]- Care Team Providers Care Roving Tester Laboratory Name Role Phone Ab FRAGA, Margarito Dolan Primary Care Physician [place] [facility] [place](s): 12/18/22 - 01/17/23 [facility] [address] [place] [address]- Allergies, Adverse Reactions, Alerts No Known Medication [...] tablet, Refills 0, Tot. Refills 0, Maintenance, 12/31/22 7:50:00 EDT, Route to Pharmacy Electronically, [facility] #[id number], Partial fill upon patient request if the prescription is f... Start Date: 12/31/22 Status: Ordered diclofenac sodium 75 mg oral delayed release tablet See Instructions, TAKE 1 TABLET BY MOUTH TWICE DAILY WITH FOOD DIRECTED, # 60 tablet, 1 Refills,12/16/22 0:00:00 EDT, [facility] #[id number], 176.8, cm, 12/09/22 9:21:00 EDT, Height, 127.4, kg, 05/17/22 4:58:00 EST, Dry Weight Start Date: 12/16/22 Status: Ordered EpiPen 2-Michael 0.3 mg injectable kit = 0.3 mg, Intramuscular, Once, PRN severe allergic reaction, may repeat if necessary, # 2 each, 0 Refills, Soft Stop, 11/06/20 13:52:00 EDT, [facility] #[id number], 176.8, cm, 11/06/20 13:38:00 EDT, Height, 140.3, kg, 11/06/20 13:38:00 EDT, Dry W... Start Date: 11/06/20 Status: Ordered hydrOXYzine hydrochloride 50 mg oral tablet 1 tablet = 50 mg, By Mouth, 3 times a day, # 60 tablet, 1 Refills, Maintenance, 12/16/22 12:01:00 EDT, [facility] #[id number], 176.8, cm, 12/09/22 9:21:00 EDT, Height, 127.4, kg, 05/17/22 4:58:00 EST, Dry Weight Start Date: 12/16/22 Status: Ordered ibuprofen 800 mg oral tablet 1, tablet, By Mouth, 3 times a day, PRN, TAKE WITH FOOD OR MILK., # 90 tablet, Refills 5, Tot. Refills 5, Maintenance, NEEDED FOR PAIN(, 08/27/22 20:18:00 EDT, Route to Pharmacy Electronically, [facility] #[id number], 176.8, cm, 05/01/22 13:41... Start Date: 08/27/22 Status: Ordered losartan 50 mg oral tablet 1 tablet, By Mouth, Daily, # 90 tablet, 1 Refills, Maintenance, 11/28/22 21:33:00 EDT, [facility] #[id number], 176.8, cm, 11/05/22 11:22:00 EDT, Height, 127.4, kg, 05/17/22 4:58:00 EST, Dry Weight Start Date: 11/28/22 Status: Ordered mupirocin 2% topical ointment 1 application, Topically, 3 times a day, for 14 days, # 22 Gm, 3 Refills, Acute 01/20/23 16:10:00 EDT, 11/25/22 16:10:00 EDT, Ointment, [facility] #[id number], Partial fill upon patient request if the prescription is for a schedule II opioid drug... Start Date: 11/25/22 Stop Date: 01/20/23 Status: Ordered oxyCODONE 5 mg oral tablet 5 mg, 1, tablet, By Mouth, Every 8 hours, PRN, mass pat ok, ok for less. TAKE ONLY NEEDED, # 45 tablet, Refills 0, Tot. Refills 0, Maintenance, Pain , Moderate, 01/07/23 14:25:00 EDT, Route to Pharmacy Electronically, [facility] #[id number], P... Start Date: 01/07/23 Stop Date: 01/22/23 Status: Ordered oxyCODONE 5 mg oral tablet 5 mg, 1, tablet, By Mouth, Every 8 hours, Masspat checked, # 29 tablet, Refills 0, Tot. Refills 0, Acute 01/26/23 17:07:00 EDT, 01/07/23 7:30:00 EDT, Route to Pharmacy Electronically, [facility] #[id number], Partial fill upon patient request if t... Start Date: 01/07/23 Stop Date: 01/26/23 Status: Ordered predniSONE 20 mg oral tablet See Instructions, 2 tablets By Mouth Daily for 5 days and then 1 tablet by mouth daily for 5 days, # 15 tablet, 0 Refills, Soft Stop, 01/08/23 16:53:00 EDT, Tablet, [facility] #[id number], Partial fill upon patient request if the prescription is... Start Date: 01/08/23 Status: Ordered ProAir HFA 90 mcg/inh inhalation aerosol with adapter 2, puffs, Inhalation, Every 6 hours, PRN, # 8.5 Gm, Refills 5, Tot. Refills 5, 04/09/22 15:33:00 EST, Route to Pharmacy Electronically, [id number], [facility] #[id number], 176.8, cm, 02/28/22 10:47:00 EDT, Height, 123.4,... Start Date: 04/09/22 Status: Ordered Ventolin HFA 108 mcg/inh inhalation aerosol with adapter 2 puffs, Inhalation, Every 6 hours, # 8.5 Gm, 6 Refills, Maintenance, 12/23/22 11:39:00 EDT, [facility] #[id number], 176.8, cm, 12/23/22 11:25:00 EDT, Height, 127.4, [...] Team Personnel Name: Margarito Berger MD Position: [facility] Physician - Primary Care Member Role: PCP Address: Address: [address] [place] [address] Name: Bhumika Castillo RN Position: [facility] SN RN Member Role: Primary Care Nurse Name: Jaja Arshad RN Position: S RN Member Role: Primary Care Nurse Name: Ludwin Butcher RN Position: S RN Member Role: Primary Care Nurse Care Team Related Persons Name: GARRETT FUENTES Address: home [address] [place] [address] Name: MARLO REINOSO Name: PT STS, NONE Name: EFFIE RICKETTS Name: RANDALL RICKETTS
--- OUTSIDE RECORDS SUMMARY | 2023-09-25 00:28 | XMS_ITS | Continuity of Care Document ---
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 Start Date: 04/23/22 Status: Ordered EpiPen 2-Michael 0.3 mg injectable kit = 0.3 mg, Intramuscular, Once, PRN severe allergic reaction, may repeat if necessary, # 2 each, 0 Refills, Soft Stop, 11/06/20 13:52:00 EDT, [facility] #[id number], 176.8, cm, 11/06/20 13:38:00 EDT, Height, 140.3, kg, 11/06/20 13:38:00 EDT, Dry W... Start Date: 11/06/20 Status: Ordered hydrOXYzine hydrochloride 50 mg oral tablet See Instructions, TAKE 1 TABLET BY MOUTH FOUR TIMES DAILY FOR 12 DAYS NEEDED FOR ANXIETY, # 48 tablet, 0 Refills, Maintenance, 04/12/22 12:47:00 EST, [facility] #[id number], 176.8, cm, 02/28/22 10:47:00 EDT, Height, 123.4, kg, 10/12/21 15:16:0... Start Date: 04/12/22 Status: Ordered hydrOXYzine hydrochloride 50 mg oral tablet See Instructions, TAKE 1 TABLET BY MOUTH FOUR TIMES DAILY FOR 12 DAYS NEEDED FOR ANXIETY, # 48 tablet, 0 Refills, Maintenance, 01/15/22 17:07:00 EDT, [facility] #[id number], 176.8, cm, 01/04/22 15:55:00 EDT, Height, 123.4, kg, 10/12/21 15:16:0... Start Date: 01/15/22 Status: Ordered ibuprofen 800 mg oral tablet 1, tablet, By Mouth, 3 times a day, PRN, TAKE WITH FOOD OR MILK., # 90 tablet, Refills 5, Maintenance, NEEDED FOR PAIN(, 01/04/22 10:09:00 EDT, Route to Pharmacy Electronically, [facility] #[id number], 176.8, cm, 12/14/21 16:29:00 EDT, Height,... Start [...] Mouth, Daily, # 30 tablet, 5 Refills, [facility] #[id number], 176.8, cm, 11/05/2214:43:00 EDT, Height, 123.4, kg, 10/12/21 15:16:00 EDT, Dry Weight Start Date: 11/13/21 Status: Ordered magnesium oxide 250 mg oral tablet See Instructions, TAKE 1 TABLET BY MOUTH DAILY AT BEDTIME FOR 14 DAYS, # 14 tablet, 0 Refills, Maintenance, 02/08/22 13:01:00 EDT, [facility] #[id number], 176.8, cm, 01/04/22 15:55:00 EDT, Height, 123.4, kg, 10/12/21 15:16:00 EDT, Dry Weight Start Date: 02/08/22 Status: Ordered magnesium oxide 250 mg oral tablet See Instructions, TAKE 1 TABLET BY MOUTH DAILY AT BEDTIME FOR 14 DAYS, # 14 tablet, 0 Refills, Maintenance, 01/04/22 15:54:00 EDT, [facility] #[id number], 176.8, cm, 12/14/21 16:29:00 EDT, Height, 123.4, kg, 10/12/21 15:16:00 EDT, Dry Weight Start Date: 01/04/22 Status: Ordered magnesium oxide 250 mg oral tablet See Instructions, TAKE 1 TABLET BY MOUTH DAILY AT BEDTIME FOR 14 DAYS, # 14 tablet, 0 Refills, Maintenance, 04/02/22 7:31:00 EST, [facility] #[id number], 176.8, cm, 02/28/22 10:47:00 EDT, Height, 123.4, kg, 10/12/21 15:16:00 EDT, Dry Weight Start Date: 04/02/22 Status: Ordered metFORMIN 750 mg oral tablet, extended release 1 tablet, By Mouth, Daily, # 60 tablet, 5 Refills, [facility] #[id number], 176.8, cm, 02/02/2116:07:00 EDT, Height, 140.3, kg, 11/06/20 13:38:00 EDT, Dry Weight Start Date: 03/30/21 Status: Ordered metFORMIN 750 mg oral tablet, extended release See Instructions, TAKE 1 TABLET BY MOUTH DAILY, # 60 tablet, 6 Refills, Maintenance, 03/29/22 19:08:00 EST, [facility] #[id number], 176.8, cm, 02/28/22 10:47:00 EDT, Height, 123.4, kg, 10/12/21 15:16:00 EDT, Dry Weight Start Date: 03/29/22 Status: Ordered oxyCODONE 5 mg oral tablet 5 mg, 1, tablet, By Mouth, Every 8 hours, PRN, mass pat ok, ok for less. Take only as needed., # 45tablet, Refills 0, Tot. Refills 0, Maintenance, Pain , Moderate, 09/28/21 17:08:00 EDT, Route to Pharmacy Electronically, [facility] #[id number],... Start Date: 09/28/21 Stop Date: 10/13/21 Status: [...] 04/19/22 9:57:00 EST, Route to Pharmacy Electronically, [facility] #[id number], P... Start Date: 04/19/22 Stop Date: 05/19/22 [...] 04/09/22 15:33:00 EST, Route to Pharmacy Electronically, [id number], [facility] #[id number], 176.8, cm, 02/28/22 10:47:00 EDT, Height, 123.4,... Start Date: 04/09/22 Status: Ordered triamcinolone 0.1% topical cream See Instructions, APPLY TOPICALLY TO THE AFFECTED AREA ON ARMS AND LEGS THREE TIMES DAILY. MIX WITH16 OUNCES OF EUCERIN CREAM, # 80 Gm, 0 Refills, [facility] #[id number], 14, APPLY TOPICALLY TOTHE AFFECTED AREA ON [...] Care Physician Member Role: PCP Address: Address[facility] [place] [address]- Care Team Related Persons Name: GARRETT FUENTES Address: home [address] [place] [address] Name: MARLO REINOSO Name: PT STS, NONE Name: EFFIE RICKETTS Name: RANDALL RICKETTS
--- OUTSIDE RECORDS SUMMARY | 2023-09-25 00:28 | XMS_ITS | Continuity of Care Document ---
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 Start Date: 11/11/22 Status: Ordered EpiPen 2-Michael 0.3 mg injectable kit = 0.3 mg, Intramuscular, Once, PRN severe allergic reaction, may repeat if necessary, # 2 each, 0 Refills, Soft Stop, 11/06/20 13:52:00 EDT, [facility] #[id number], 176.8, cm, 11/06/20 13:38:00 EDT, Height, 140.3, kg, 11/06/20 13:38:00 EDT, Dry W... Start Date: 11/06/20 Status: Ordered hydrOXYzine hydrochloride 50 mg oral tablet 1 tablet = 50 mg, By Mouth, 3 times a day, # 60 tablet, 1 Refills, Maintenance, 10/21/22 15:31:00 EDT, [facility] #[id number], 176.8, cm, 10/11/22 16:37:00 EDT, Height, 127.4, kg, 05/17/22 4:58:00 EST, Dry Weight Start Date: 10/21/22 Status: Ordered ibuprofen 800 mg oral tablet 1, tablet, By Mouth, 3 times a day, PRN, TAKE WITH FOOD OR MILK., # 90 tablet, Refills 5, Tot. Refills 5, Maintenance, NEEDED FOR PAIN(, 08/27/22 20:18:00 EDT, Route to Pharmacy Electronically, [facility] #[id number], 176.8, cm, 05/01/22 13:41... Start Date: 08/27/22 Status: Ordered losartan 50 mg oral tablet 1 tablet, By Mouth, Daily, # 90 tablet, 1 Refills, Maintenance, 06/03/22 11:27:00 EST, [facility] #[id number], 176.8, cm, 05/01/22 13:41:00 EST, Height, 127.4, kg, 05/17/22 4:58:00 EST, Dry Weight Start Date: 06/03/22 Stop Date: 11/30/22 Status: Ordered mupirocin 2% topical ointment 1 application, Topically, 3 times a day, for 14 days, # 22 Gm, 0 Refills, Acute 11/15/22 16:29:00 EDT, 11/01/22 16:29:00 EDT, Ointment, [facility] #[id number], Partial fill upon patient request if the prescription is for a schedule II opioid drug... Start Date: 11/01/22 Stop Date: 11/15/22 Status: Ordered oxyCODONE 5 mg oral tablet 5 mg, 1, tablet, By Mouth, Every 8 hours, PRN, mass pat ok, ok for less. TAKE ONLY NEEDED, # 45 tablet, Refills 0, Tot. Refills 0, Maintenance, Pain , Moderate, 11/04/22 16:00:00 EDT, Route to Pharmacy Electronically, [facility] #[id number], P... Start Date: 11/04/22 Stop Date: 11/19/22 Status: Ordered ProAir HFA 90 mcg/inh inhalation aerosol with adapter 2, puffs, Inhalation, Every 6 hours, PRN, # 8.5 Gm, Refills 5, Tot. Refills 5, 04/09/22 15:33:00 EST, Route to Pharmacy Electronically, [id number], [facility] #[id number], 176.8, cm, 02/28/22 10:47:00 EDT, Height, 123.4,... Start Date: 04/09/22 Status: Ordered Ventolin HFA 108 mcg/inh inhalation aerosol with adapter See Instructions, INHALE 2 PUFFS BY MOUTH EVERY 6 HOURS NEEDED, # 18 Gm, 0 Refills, Maintenance,11/11/22 12:43:00 EDT, [facility] #[id number], 176.8, cm, 11/05/22 11:22:00 EDT, Height, 127.4, kg, 05/17/22 4:58:00 EST, Dry Weight Start Date: 11/11/22 Status: Ordered Problem List Condition Confirmation Course Effective Dates Status Health St atus Informant Adjustment disorder Confirmed Active Chronic knee pain Confirmed Active Chronic low back pain Confirmed Active Daytime sleepiness Confirmed Active Hypertension Confirmed Active Morbid obesity Confirmed Active SKIP - Obstructive sleep apnea Confirmed Active Prediabetes Confirmed Active Severe obesity Confirmed Active Vital Signs Most recent to oldest [Reference Range]: 1 Height 176.8 cm (11/05/22 11:22 AM) Social History Social History Type Response Smoking Status 5-9 cigarettes (betw een 1/4 to 1/2 pack)/day in last 30 days; Tobacco use times per day: 7; entered on: 12/31/18 Sex Patient Care team information Care Team Personnel Name: Margarito Berger MD Position: [facility] Physician - Primary Care Member Role: PCP Address: Address: [address] [place] [address] Name: Bhumika Castillo RN Position: [facility] SN RN Member Role: Primary Care Nurse Name: Jaja Arshad RN Position: S RN Member Role: Primary Care Nurse Name: Ludwin Butcher RN Position: [facility] RN Member Role: Primary Care Nurse Care Team Related Persons Name: GARRETT FUENTES Address: home [address] [place] [id number] Name: MARLO REINOSO Name: PT STS, NONE Name: EFFIE RICKETTS Name: RANDALL RICKETTS
--- OUTSIDE RECORDS SUMMARY | 2023-09-25 00:28 | XMS_ITS | Continuity of Care Document ---
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 Start Date: 11/06/20 Status: Ordered hydrOXYzine hydrochloride 50 mg oral tablet 1 tablet, By Mouth, 4 times a day, PRN NEEDED FOR ANXIETY, for 12 days, # 48 tablet, 0 Refills, Physician Stop 10/01/21 12:08:00 EDT, 09/19/21 12:08:00 EDT, [facility] #[id number], 176.8, cm,08/27/21 15:32:00 EDT, Height, 140.3, kg, 11/06/20... Start Date: 09/19/21 Stop Date: 10/01/21 Status: Ordered ibuprofen 800 mg oral tablet 1, tablet, By Mouth, 3 times a day, PRN, TAKE WITH FOOD OR MILK, # 90 tablet, Refills 0, NEEDED FOR PAIN, Route to Pharmacy Electronically, [facility] #[id number], 176.8, cm, 06/21/21 15:26:00 EST, Height, 140.3, kg, 11/06/20 13:38:00 EDT, Dry... Start Date: 07/23/21 Status: Ordered ibuprofen 800 mg oral tablet 1, tablet, By Mouth, 3 times a day, PRN, TAKE WITH FOOD OR MILK, # 90 tablet, Refills 0, Tot. Refills 0, Maintenance, NEEDED FOR PAIN, 08/27/21 15:32:00 EDT, Route to Pharmacy Electronically, [facility] #[id number], 176.8, cm, 08/06/21 15:06:0... Start Date: 08/27/21 [...] 02/26/21 14:39:00 EDT, Route to Pharmacy Electronically, [facility] #[id number], Partial fill upon patientrequest if the prescription is for a schedule II op... Start Date: 02/26/21 Stop Date: 05/27/21 Status: Ordered losartan 50 mg oral tablet 1 tablet = 50 mg, By Mouth, Daily, for 30 days, # 30 tablet, 5 Refills, Physician Stop 10/13/21 14:50:00 EDT, 04/16/21 14:50:00 EST, [facility] #[id number], 176.8, cm, 02/01/21 16:07:00 EDT, Height, 140.3, kg, 11/06/20 13:38:00 EDT, Dry Weight Start Date: 04/16/21 Stop Date: 10/13/21 Status: Ordered magnesium oxide 250 mg oral tablet 1 tablet = 250 mg, By Mouth, Daily at bedtime, for 14 days, # 14 tablet, 0 Refills, Acute 10/03/21 12:08:00 EDT, 09/19/21 12:08:00 EDT, Tablet, [facility] #[id number], Partial fill upon patient request if the prescription is for a schedule II opi... Start Date: 09/19/21 Stop Date: 10/03/21 Status: Ordered metFORMIN 750 mg oral tablet, extended release 1 tablet, By Mouth, Daily, # 60 tablet, 5 Refills, [facility] #[id number], 176.8, cm, 02/02/2116:07:00 EDT, Height, 140.3, kg, 11/06/20 13:38:00 EDT, Dry Weight Start Date: 03/30/21 Status: Ordered oxyCODONE 5 mg oral tablet 5 mg, 1, tablet, By Mouth, Every 8 hours, PRN, mass pat ok, ok for less. Take only as needed. ok tofill 5/21/22, # 45 tablet, Refills 0, Tot. Refills 0, Maintenance, Pain , Moderate, 09/13/21 17:29:00 EDT, Route to Pharmacy Electronically, [facility]... Start Date: 09/13/21 Stop Date: 09/28/21 Status: Ordered phentermine 30 mg oral capsule 1 capsule = 30 mg, By Mouth, Daily in AM, for 30 days, # 30 capsule, 0 Refills, Acute 10/21/21 12:38:00 EDT, 09/21/21 12:38:00 EDT, Capsule, [facility] #[id number], Partial fill upon patient request if the prescription is for a schedule II opioid . Start Date: 09/21/21 Stop Date: 10/21/21 Status: Ordered ProAir HFA 90 mcg/inh inhalation aerosol with adapter 2, puffs, Inhalation, Every 6 hours, PRN, # 8.5 Gm, Refills 5, Route to Pharmacy Electronically, [id number], [facility] #[id number], 176.8, cm, 05/18/21 14:17:00 EST, Height, 140.3, kg, 11/06/20 13:38:00 EDT, Dry Weight Start Date: 06/13/21 Status: Ordered triamcinolone 0.1% topical cream See Instructions, APPLY TOPICALLY TO THE AFFECTED AREA ON ARMS AND LEGS THREE TIMES DAILY. MIX WITH16 OUNCES OF EUCERIN CREAM, # 80 Gm, 0 Refills, [facility] #[id number], 14, APPLY TOPICALLY TOTHE AFFECTED AREA ON [...]
--- OUTSIDE RECORDS SUMMARY | 2023-09-25 00:28 | XMS_ITS | Continuity of Care Document ---
Author Organization [facility] ter Address [address] [place] [id number]- Care Team Providers Care Info Analyst Name Role Phone Ab FRAGA, Margarito Dolan Primary Care Physician Encounter [facility] Date(s): 05/17/22 - 05/18/[address] [address]- Discharge Disposition: A-Transfer VNA/Home Health Attending Physician: Todd Barr MD Admitting Physician: Todd Barr MD Referring Physician: Todd Barr MD Allergies, Adverse Reactions, Alerts No Known [...] opioid drug. Start Date: 05/18/22 Status: Ordered Acetaminophen Tablet 650 mg, Tablet, By Mouth, 05/18/22 7:00:00 EST Start Date: 05/18/22 Stop Date: 05/18/22 Status: Completed Aspirin Tablet 325 mg, By Mouth, 2 times a day, Refills 0, Maintenance, 05/18/22 7:55:00 EST, Partial fill upon patient request if the prescription is for a schedule II opioid drug. Start Date: 05/18/22 Status: Ordered cefadroxil 500 mg oral capsule 1 capsule = 500 mg, By Mouth, Every 12 hours, for 7 days, # 14 capsule, 0 Refills, Acute 05/25/22 7:52:00 EST, 05/18/22 7:52:00 EST, Capsule, [facility], Partial fill upon patient request if the prescription is for a schedule II opioid d... Start Date: 05/18/22 Stop Date: 05/25/22 Status: Ordered celecoxib 200 mg oral capsule [...] tablet, By Mouth, 3 times a day, for 14 days, PRN spasms, # 42 tablet, Refills 0, Tot. Refills 0, Acute 06/01/22 7:52:00 EST, 05/18/22 7:52:00 EST, Route to Pharmacy Electronically, [facility], Partial fill upon patient request... Start Date: 05/18/22 Stop Date: 06/01/22 Status: Ordered Dilaudid 2 mg oral tablet 2 mg, Tablet, By Mouth, Every 4 hours, PRN for Pain , Moderate, Routine, 05/18/22 6:33:00 EST Start Date: 05/18/22 Stop Date: 05/18/22 Status: Discontinued Dilaudid 2 mg oral tablet See Instructions, PRN Pain , Severe, 1-2 tablet By Mouth Every 4 hours, # 84 tablet, 0 Refills, Acute 05/25/22 7:52:00 EST, 05/18/22 7:51:00 EST, [facility], Partial fill upon patient request if the prescription is for a schedule... Start Date: 05/18/22 Stop Date: 05/25/22 Status: Ordered EpiPen 2-Michael 0.3 mg injectable kit = 0.3 mg, Intramuscular, Once, PRN severe allergic reaction, may repeat if necessary, # 2 each, 0 Refills, Soft Stop, 11/06/20 13:52:00 EDT, [facility] #[id number], 176.8, cm, 11/06/20 13:38:00 EDT, Height, 140.3, kg, 11/06/20 13:38:00 EDT, Dry W... Start Date: 11/06/20 Status: Ordered hydrOXYzine pamoate 50 mg oral [...] losartan 50 mg oral tablet 50 mg, Tablet, By Mouth, hold for SBP less than 130, 05/18/22 9:00:00 EST Start Date: 05/18/22 Stop Date: 05/18/22 Status: Completed losartan 50 mg oral tablet 50 mg, 1, tablet, By Mouth, Daily, Refills 0, Maintenance, 05/18/22 7:55:00 EST, Partial fill upon patient request if the prescription is for a schedule II opioid drug. Start Date: 05/18/22 Status: Ordered MiraLax Powder 1 pack/packet = 17 Gm, By Mouth, Daily, PRN Constipation, 0 Refills, Maintenance, 05/18/22 7:55:00 EST, Powder, Partial fill upon patient request if the prescription is for a schedule II opioid drug. Start Date: 05/18/22 Status: Ordered pantoprazole 40 mg oral delayed release tablet = 40 mg, By Mouth, Daily in AM, 0 Refills, Maintenance, 05/18/22 7:55:00 EST, EC Tablet Start Date: 05/18/22 Status: Ordered ProAir HFA 90 mcg/inh inhalation aerosol with adapter 2, puffs, Inhalation, Every 6 hours, PRN, # 8.5 Gm, Refills 5, Tot. Refills 5, 04/09/22 15:33:00 EST, Route to Pharmacy Electronically, [id number], [facility] #[id number], 176.8, cm, 02/28/22 10:47:00 EDT, Height, 123.4,... Start Date: 04/09/22 Status: Ordered senna 187 mg oral tablet 1 tablet = 8.6 mg, By Mouth, Daily at bedtime, PRN as needed for constipation, 0 Refills, Maintenance, 05/18/22 7:55:00 EST, Tablet, Partial fill upon patient request if the prescription is for a schedule II opioid drug. Start Date: 05/18/22 Status: Ordered traMADol 50 mg oral tablet See Instructions, PRN Pain , Mild, 1-2 tablet By Mouth Every 6 hours not to exceed 400 mg/day, # 56tablet, 0 Refills, Acute 05/25/22 7:51:00 EST, 05/18/22 7:51:00 EST, Tablet, [facility], Partial fill upon patient request if the presc... Start Date: 05/18/22 Stop Date: 05/25/22 Status: Ordered Problem List Condition Confirmation Course [...] obesity (BMI 35.0-39.9) with comorbidity Confirmed Active Results Radiology Reports * Exam Date Time Procedure Performing Provider Status 05/17/22 2:30 PM Knee 1 or 2 Views Eryn Oneil ; Auth (Verified) Notes: (Knee 1 or 2 Views Right) Reason For Exam: Postop RESULT: Knee 1 or 2 Views Right Right knee, 2 views Reason: Postop; COMPARISON: Pre-op 07/05/2020 FINDINGS: New femoral and tibial knee replacement hardware in typical position. No periprosthetic fracture. Typical periarticular soft tissue emphysema. No retained instruments. IMPRESSION: Typical postoperative appearance. WSN: [id number] Ordering Physician: Jacob Schmid Dictated By: Ko Stapleton MD Dictated Date/Time: 05/17/22 2:37 pm Reviewed By: Ko Stapleton MD Signed By: Ko Stapleton MD Signed Date/Time: 05/17/22 2:37 pm Transcribed By: TRISTAN Transcribed Date/Time: 05/17/22 2:36 pm Vital Signs Most recent to oldest [Reference Range]: 1 2 3 Weight 127.4 kg (05/17/22 8:26 AM) 127.4 kg (05/17/22 4:58 AM) Oxygen Saturation [94-100 %] 95 % (05/18/22 6:28 AM) 95 % (05/18/22 3:52 AM) 96 % (05/17/22 11:48 PM) Pulse Rate [55-90 bpm] 103 bpm *H* (05/18/22 6:28 AM) 110 bpm *H* (05/18/22 3:52 AM) 108 bpm *H* (05/17/22 11:48 PM) Blood Pressure [90-138/55-84 mm Hg] 136/77mm Hg (05/18/22 7:11 AM) 136/77mm Hg (05/18/22 6:28 AM) 126/89mm Hg (05/18/22 3:52 AM) Respiratory Rate [16-30 br/min] 18 br/min (05/18/22 8:58 AM) 18 br/min (05/18/22 8:11 AM) 18 br/min (05/18/22 8:11 AM) Temperature [96.8-100.4 DegF] 98 DegF (05/18/22 6:28 AM) 97.7 DegF (05/18/22 3:52 AM) 97.6 DegF (05/17/22 11:48 PM) Liters per Minute 2 L/min (05/18/22 3:52 AM) 10 L/min (05/17/22 11:00 AM) Mode of Delivery (Oxygen) Room air (05/18/22 6:28 AM) Nasal cannula (05/18/22 3:52 AM) Room air (05/17/22 11:48 PM) Blood pressure sites Arm, left (05/18/22 6:28 AM) Arm, right (05/18/22 3:52 AM) Arm, right (05/17/22 11:48 PM) Temperature Route Oral (05/18/22 6:28 AM) Oral (05/18/22 3:52 AM) Oral (05/17/22 11:48 PM) Dry Weight 127.4 kg (05/17/22 4:58 AM) Weight Obtained Via Standing scale (05/17/22 4:58 AM) Dry Weight Obtained Via Standing scale (05/17/22 4:58 AM) Social History Social History Type Response Smoking Status 5-9 cigarettes (betw een 1/4 to 1/2 pack)/day in last 30 days; Tobacco use times per day: 7; entered on: 12/31/18 Sex Hospital Progress note * Pavithra RAYGOZA, Jaja: PERFORM, SIGN, VERIFY Event Display: Progress Note Hospital Authored Date: [id number] Patient: EDD RICKETTS Age: 46 years Sex: Male : 1975 Associated Diagnoses: None Author: Jaja Arshad RN Findings Narrative/Incidental Pt POD # 1 R TKR. Pt a&o x 3. Lungs clear, diminished throughout, +smoker, no SOB noted. Pt using IS with good technique. Vitals stable, denies chest pain. +BS x 4, abd soft, non-tender, non-distended, reports LBM yesterday. Pt tolerating diet well, no N/V at this time. Pt voiding c/y/u in BR/urinal. Pt OOB with 1 assist and walker, steady gait. +pp,+cms, +dorsi/plantar flexion, denies calf pain, c-boots on. Pt denies numbness/tingling. Pt on ASA for dvt prophylaxis. Silverlon dsg c/d/i. Ice pack in place. Pt states pain 5-6/10 this AM, medicated with 2 mg dilaudid and 1 time dose toradol. Pt states pain improved for aprox 1 hr then increased again, medicated with additional 2 mg dilaudid. Will continue to monitor comfort status. Plan of care continues. Plan for home today pending PT/OT clearance.. * Sara Romano: PERFORM, SIGN, VERIFY Event Display: Progress Note Hospital Authored Date: [id number] Patient: EDD RICKETTS Age: 46 years Sex: Male : 1975 Associated Diagnoses: None Author: Sara Romano Findings Problem Related to Alteration in Musculoskeletal : Alteration in Musculoskeletal Func/new 05/18/2022 1:00 EST Alteration in Musculoskeletal Related to Total joint replacement, Other: Right TKR Goals & Outcomes, Musculoskeletal Affected extremity will maintain color/motion/sensation, Pt able to perform ADL's to best of ability, Pt demonstrates precautions/exercise/ transfers per protocol, Pt will ambulate safely with assistive device, Pt will be free from complications of immobility, Pt will demonstrate ability to participate in ADL's, Pt will report acceptable level of comfort/painrelief Interventions, Musculoskeletal Monitor patients ambulation status, monitor Color/Motion/Sensation, Assist with repositioning, Encourage deep breathing & coughing exercises, Notify MD immediately if tissue perfusion deteriorates, Obtain assistive devices as needed, Teach & Encourage use of Incentive spirometer, Teach Pt/caregiver on ADL's & adaptive equipment, Teach Pt/caregiver on exercises, Teach pt/caregiver on use of pain scale, Teach Pt/caregiver complications of immobility, Teach Pt/caregiver techniques to increase mobility, Teach Pt/caregiver on safety precautions BH Goals/Interventions, Musculoskeletal Yes Musculoskeletal, Problem Start 05/17/2022 16:04 Reviewed Plan with, Musculoskeletal Patient Patient Progression, Musculoskeletal Pt progressing according to plan . Nursing Data Vital Signs : VITAL SIGNS SECTION 05/17/2022 23:48 EST Temperature 97.6 DegF Temperature Route Oral Pulse Rate 108 bpm H Respiratory Rate 18 br/min Systolic Blood Pressure 159 mm Hg H Diastolic Blood Pressure 89 mm Hg H Blood pressure sites Arm, right Mean Arterial Pressure 112 mm Hg Pulse Pressure 70 mm Hg Oxygen Saturation 96 % Mode of Delivery (Oxygen) Room air . Evaluation 46 y/o male pt s/p R TKR with on 05/17/22. A/O x3. No complain of CP, SOB, monitored end tidal of CO2 37%, sat O2 97% in RA. LS CTA. Encouraged using of IS. Tolerating PO. NO n/v, +BS, +flatus, abd soft/nontender.Last BM on 04/2022. Voiding with no issues. OOB as tolerated with one assist.Steady gait. KI to the R knee when ambulating+walker. Silverlon to R knee c/d/i.+CMS, +pp, strong d/p flex. Pain 01/05 treated with PO Oxy 10 mg, Tylenol 650 mg, Cyclobenzaprine 10 mg, with good effect. Ice pack for comfort. Cefazolin IV PB 3 gm was administered, per order for surgical prophylaxis. On ASA 325 mg for DVT prophylaxis. C boots on bilat. Call griggs in reach. Patient laying in bed co mfortably at this time. Continue monitor for pain and mobility. . Discharge Information Case Management Discharge Plan : Case Management Discharge Plan Data 05/17/2022 14:23 EST Discharge Level of Care at Discharge Homehealth/VNA Discharge VNA/Hospice/Home Care [facility] Name of Agency #1 [facility] Service Categories #1 Physical Therapy Service Comments #1 [facility] will call you at home to coordinate home PT visit. If you do not hear from them give them a call. Rehabilitation Discharge : Rehab Discharge Index 05/17/2022 17:41 EST Full chart review completed Not Done: Task Duplication (Not Done) 05/17/2022 15:33 EST Comments on treatment indicated OT to address ADL's, transfers, safety Full chart review completed Yes Hospital course PRPCEDURE: Pt s/p right total knee arthroplasty with Dr. Barr on 05/17/2022. Transfer tub/shower OT Plan Supervision 05/17/2022 14:53 EST Comments on treatment indicated 46 y/o M s/p right total knee arthroplasty withDr. Barr on 05/17/2022. WBAT R LE c KI. Skilled PT for therex, transfers, amb c RW, stairs. rec home c services. Walker: distance 20-50 Distance pt will ambulate > 100 ft c RW Full chart review completed Yes Hospital course see comment Other findings Other findings Plan of care PT Gait training, Transfer training, Therapeutic exercise, Functional Activities, Balance training, Neuromuscular education * Monet RAYGOZA, Felisa Mathis: PERFORM, SIGN, VERIFY Event Display: Progress Note Hospital Authored Date: Patient: EDD RICKETTS Age: 46 years Sex: Male : 1975 Associated Diagnoses: None Author: Felisa Healy RN Findings Problem Related to Alteration in Musculoskeletal : Alteration in Musculoskeletal Func/new 05/17/2022 16:00 EST Alteration in Musculoskeletal Related to Total joint replacement, Other: Right TKR Goals & Outcomes, Musculoskeletal Affected extremity will maintain color/motion/sensation, Pt able to perform ADL's to best of ability, Pt demonstrates precautions/exercise/ transfers per protocol, Pt will ambulate safely with assistive device, Pt will be free from complications of immobility, Pt will demonstrate ability to participate in ADL's, Pt will report acceptable level of comfort/painrelief Interventions, Musculoskeletal Monitor patients ambulation status, monitor Color/Motion/Sensation, Assist with repositioning, Encourage deep breathing & coughing exercises, Notify MD immediately if tissue perfusion deteriorates, Obtain assistive devices as needed, Teach & Encourage use of Incentive spirometer, Teach Pt/caregiver on ADL's & adaptive equipment, Teach Pt/caregiver on exercises, Teach pt/caregiver on use of pain scale, Teach Pt/caregiver complications of immobility, Teach Pt/caregiver techniques to increase mobility, Teach Pt/caregiver on safety precautions, [place] Pt/caregiver to Total Knee Replacement protocol Goals/Interventions, Musculoskeletal Yes Musculoskeletal, Problem Start 05/17/2022 16:04 Reviewed Plan with, Musculoskeletal Patient, Children Patient Progression, Musculoskeletal Plan Initiation . Narrative/Incidental Pt. alert/oriented times 3. Lung sounds clear. IS being used up to 2,000. Pt. denies SOB or CP. Abd. soft/nontender, +BS. Pt. with good appetite. LBM 05/17/22. Pt. initially bladder scanned for 740cc then voided 900cc.. Evaluation P: Alteration in musculosketal function I: See above updated careplan E: Pt. arrived from PACU s/p right TKR by Dr. Barr. Pt. with c/o 8/10 pain to right knee, medicated with oxycodone 10mg with some effects. Pt. then medicated with IV dilaudid for breakthrough pain with good effects, stating pain decreased to 6-7/10. Pt. medicated with scheduled tylenol and flexeril as ordered. Silverlon dressing d/i to right knee, ice pack applied. Pt. OOB with knee immobilizer and walker with steady gait. Pt. with +plantar/dorsiflexion and +CMS to RLE. Pt. to be evaluated by PT/OT. Compression boots on. Pt. to be on ASA post-op for DVT prophylaxis.. Note * Jaja Arshad RN: PERFORM Event Display: Discharge/Transfer Note Hospital Authored Date: Nursing Discharge Note Entered On: 05/18/2022 10:39 EST Performed On: 05/18/2022 10:39 EST by Jaja Arshad RN Nursing Discharge Note 2 Discharge Time : 05/18/2022 11:30 EST Jaja Arshad RN - 05/18/2022 11:42 EST Discharge Level of Care at Discharge : Homehealth/VNA Discharge VNA/Hospice/Home Care(v001) : [facility] Patient Left Unit Via : Wheelchair Patient Accompanied Off Unit with : Responsible adult DC Instructions Provided & Signed by Pt : Yes Patient Understands D/C Instructions : Yes Patient Instructions Discharge Signed : Yes Did Pt have Specialty Bed or Wound Vac : No Jaja Arshad RN - 05/18/2022 10:39 EST * Gavin Sanchez NP: PERFORM, SIGN, VERIFY Event Display: Discharge/Transfer Note Hospital Authored Date: Patient: EDD RICKETTS Age: 46 years Sex: Male : 1975 Associated Diagnoses: None Author: Gavin Sanchez NP Discharge Summary Admission Date: May 17, 2022 Discharge Date: May 18, 2022 Admitting Diagnosis: Right knee osteoarthritis Discharge Diagnosis: Right knee osteoarthritis Final Diagnosis: Right knee osteoarthritis Procedure: Right total knee arthroplasty Surgeon: Dr. Todd Barr Past Medical History: 1. Osteoarthritis of bilateral knees status post left knee replacement in [place] in 2018. 2. Obesity, BMI of 39. 3. Hypertension. 4. Adjustment disorder. 5. Chronic low back pain. 6. Obstructive sleep apnea, where she does not generally use a CPAP machine. 7. Anxiety and depression. 8. Impaired fasting glucose A1c of 5.7 preoperatively. 9. Leg cramps. 10. The patient has current history of tobacco use about half a pack of cigarettes a day. Orthopedics: The patient is status post right knee arthroplasty. It is anticipated that he will be discharged home today pending PT, OT clearance. The patient is doing well from a surgical standpoint. His incision is healing well. Neurovascular status is intact. Calves are supple and nontender. Thepatient is weight bearing as tolerated. Making good progress with Physical Therapy and Occupationaltherapy. Supervision with ambulation walking 30 feet, ambulating with a walker. ROM 0-90. Pain is well controlled on his current regimen, Acetaminophen 650 mg every 6 hours, Celebrex, Flexeril, tramadol and Dilaudid 2- 4 mg every 4 hours as needed . Patient is tolerating this well. He will be sent home with a prescription for this medication. Prescription: Tramadol 50 mg tablets, take 1 to 2 tablets every 6 hours as needed for mild pain, 7 days, #56 Dilaudid 2 mg tablet, 1-2 tablets every 4 hours as needed for severe pain, 7 days # 84 Hospital course: Relatively uneventful medically. Patient struggled with pain postoperatively while on oxycodone. Heis doing much better on Dilaudid. Patient also received a dose of Toradol IV push x1 as well as Flexeril for muscle spasms. Patient is voiding spontaneously. + bowel sounds. all morning bowel medications will be given in anticipation of a BM prior to discharge. No other issues. No calf tenderness. Current Medication List: Acetaminophen: 650 mg, By Mouth, Every 6 hours, May take OTC not to exceed 3000 mg/day Albuterol: 2 puffs, Inhalation, Every 6 hours, PRN ( NEEDED) Aspirin: 325 mg, By Mouth, 2 times a day Cefadroxil: 500 mg = 1 capsule, By Mouth, Every 12 hours Celecoxib: 200 mg = 1 capsule, By Mouth, Daily in AM Cyclobenzaprine: 10 mg = 1 tablet, By Mouth, 3 times a day, PRN spasms Docusate: 100 mg = 1 capsule, By Mouth, 2 times a day Durable Medical Equipment (Inhaler Spacer ): See Instructions, For use with Albuterol inhaler, as needed EPINEPHrine: 0.3 mg, Intramuscular, Once, PRN (severe allergic reaction), may repeat if necessary Hydromorphone: See Instructions, PRN (Pain , Severe), 1-2 tablet By Mouth Every 4 hours HydrOXYzine: 50 mg = 1 capsule, By Mouth, Every 6 hours, PRN (Anxiety) Losartan: 50 mg = 1 tablet, By Mouth, Daily Pantoprazole: 40 mg, By Mouth, Daily in AM Polyethylene Glycol 3350: 17 Gm = 1 pack/packet, By Mouth, Daily, PRN (Constipation) Senna: 8.6 mg = 1 tablet, By Mouth, Daily at bedtime, PRN (as needed for constipation) Tramadol: See Instructions, PRN (Pain , Mild), 1-2 tablet By Mouth Every 6 hours not to exceed 400 mg/day Allergies (Active and Proposed Allergies Only) No Known Medication Allergies (Severity: Unknown severity, Onset: Unknown) Seafood (Severity: Unknown severity, Onset: Unknown) Other Food Allergy (Severity: Unknown severity, Onset: Unknown) Reactions: tuna fish Current Labs: Last 24 Hours Basic Metabolic Panel: Hematology: Sodium: 139 mmol/L (05/18/22) Hgb: 10.7 Gm/dL (05/18/22) Potassium (POC): 4.0 mmol/L (05/18/22) Hemoglobin A1C (Monitoring): ------ Phosphorus: ------ WBC: 14.1 k/mm3 (05/18/22) Magnesium: ------ Platelets: 356 k/mm3 (05/18/22) BUN (POC) POC Cartridge: 17 mg/dL (05/18/22) INR Level: ------ Creatinine-Blood: 0.9 mg/dL (05/18/22) Creatinine Clearance: ------ Additional - Last 24 Hours Abs. NRBC: 0.0 k/mm3 (05/18/22) Anion Gap: 11 (05/18/22) Bicarbonate Level: 25 mmol/L (05/18/22) BUN: BUN (05/18/22) Chloride: 103 mmol/L (05/18/22) Creatinine, Blood: Creatinine, Blood (05/18/22) Estimated GFR Creatinine: 105 ML/MIN/1.73 M2 (05/18/22) Hct: 33.1 % (05/18/22) MCH: 28.1 pg (05/18/22) MCHC: 32.3 g/dL (05/18/22) MCV: 86.9 femtoliters (05/18/22) MPV: 9.8 femtoliters (05/18/22) Nucleated RBC (Automated): 0.0 #/100 WBC'S (05/18/22) RBC: 3.81 m/mm3 (05/18/22) RDW-SD: 40.1 femtoliters (05/18/22) DVT prophylaxis ASA EC 325 mg po bid x 30 days Disposition: Anticipates being discharged today to home. Follow up at [facility] on May 31, 2022 at 2 PM, patient is aware of this. The patient has a Silverlon dressing in place. He may shower with it and the dressing can be discontinued on POD 14. Discharge Plan Discharge Disposition Discharge: home with VNA. Home Health Face to Face I certify that this patient is under my care and that I or an allowed non- physician practitioner working with me, had a [id number] encounter with the patient on this date: 05/18/2022. The encounter with the patient was in whole, or in part, for the following medical condition, whichis the primary reason for home health care: Osteoarthritis of right knee. Physical Therapy: Functional mobility training, Home exercise program to strengthen, increase ROM, Falls prevention training. Homebound due to: Inability to leave home without assistance/supervision, Inability to ambulate without assistance, Pain, decreased strength, and endurance, Unsteady gait, Impaired transfers, Inability to negotiate stairs. Physician Signature: Momo FRAGA, Todd Arshad RN, Jaja: PERFORM Event Display: Patient Education/Instruction Authored Date: [id number] Inpatient Adult Discharge Instructions [place] [id number] Name: EDD RICKETTS : 1975 Visit: 05/17/2022 04:47:00 Current Date: 05/18/2022 10:39 Account: [id number] Inpatient Adult Discharge Instructions We would like to thank you for allowing us to assist you with your healthcare needs. The following includes patient education materials and information regarding your injury/illness. Our entire staffstrives to provide an excellent experience for our patients and their families. PLEASE ENSURE YOU FOLLOW-UP PER THE INSTRUCTIONS BELOW! ?? YOUR OPINION IS IMPORTANT TO US! Please complete the survey you may receive by mail or email. Your feedback will be used to make improvements to the healthcare experiences of our patients and their families. Surveys are administered by [employer] ?? If further treatment with your primary care physician or another doctor is recommended, it is important for you to keep the appointment. Call your primary care physician or return to the Emergency Department immediately if your condition worsens, fails to improve, or new symptoms develop. If you need to find a doctor, you can call [facility] for a referral at [phone] or toll free at [phone]) or log in to [email or web address] ?? You can view and manage your care through the patient portal or by using a health care hoa of your choosing. [employer] is a website that allows you to securely view your medical information including your hospital discharge summary, office visit summaries, medications and follow-up visits. You can also request appointments, renew medications, and request access to your medical information using a health care hoa of your choosing, or just ask a question. You can enroll at [email or web address] or register during your next office visit. You have been discharged from [facility], Patient Care Unit: SW7. If you have any questions regarding these instructions after you leave, please call us and we will be happy to assist you. [facility] Your Care Team Attending Physician Momo FRAGA, Todd Greene Discharging Providers Laura LEE, Gavin Reason for Admission OA RIGHT KNEE HANSEN 23 HR Your Diagnosis Osteoarthritis of right knee Tests Performed Below is a partial list of the tests performed during your hospitalization. You may have had other tests and procedures not included in this list. Please discuss all test results with your provider. BUN CBC COVID-19 (2019 Novel Coronavirus) PCR?-- Results Pending -- COVID-19 (NOVEL CORONAVIRUS), PCR Creatinine Electrolytes XR Knee 1 or 2 Views Right ? You will be contacted within 72 hours with your results. Primary Care Provider Margarito Berger MD Advance Directive Health Care Proxy on File No No qualifying data available. Discharge Vitals Temperature: 98 DegF Weight: 127.4 kg Pulse Rate:??103 bpm??High ?? Respiratory Rate: 18 br/min ?? Systolic Blood Pressure: 136 mm Hg ?? Diastolic Blood Pressure: 77 mm Hg ?? Oxygen Saturation: 95 % ?? Studies Pending All tests and labs ordered during this hospital stay have been completed unless listed below. Please discuss all pending results with your provider listed above in these instructions. ?? BUN CBC COVID-19 (2019 Novel Coronavirus) PCR Creatinine Electrolytes What to do next Instructions From Your Doctor Discharge Orders Scheduled Follow-Up Appointments 2022 10:00 AM EST ?? With: Margarito Bergre MD Where: [facility] [address] [place] [address]- Friday 11:00 AM EST ?? With: Ko Ni MD Where: [facility] [address] [address]- You Need to Schedule the Following Appointments Follow Up with??[facility] When??Within 1 to 2 weeks Where: [address] [facility] [address] [place] [address]- Discharge Medications MAIKELEDD VO :1975 Visit Date:05/17/2022 Medications: Please continue your medications until treatment is completed or stopped by your provider. Medications not listed below should be discontinued. Discuss any questions related to medications with your provider. What How Much When Why Instructions Next Dose New Acetaminophen (acetaminophen 325 mg oral tablet) 650 Milligram Oral Every 6 hours May take OTC not to exceed 3000 mg/ day ?? New Aspirin (Aspirin Tablet) 325 Milligram Oral Twice a day New Cefadroxil (cefadroxil 500 mg oral capsule) 1 capsule Oral Every 12 hours Duration: 7 Days Pickup at [facility] 3 New Celecoxib (celecoxib 200 mg oral capsule) 1 capsule Oral Daily in the morning New Docusate (Colace Capsule) 100 Milligram Oral Twice a day New Hydromorphone (Dilaudid 2 mg oral tablet) See instructions 1-2 tablet By Mouth Every 4 hours ?? Pickup at [facility] 3 New Pantoprazole (pantoprazole 40 mg oral delayed release tablet) 40 Milligram Oral Daily in the morning New Polyethylene Glycol 3350 (MiraLax Powder) 17 gram Oral Daily as needed for Constipation New Senna (senna 187 mg oral tablet) 1 tab(s) Oral Daily at Bedtime as needed for as needed for constipation New Tramadol (traMADol 50 mg oral tablet) See instructions 1-2 tablet By Mouth Every 6 hours not to exceed 400 mg/ day ?? Pickup at [facility] 3 Changed Cyclobenzaprine (cyclobenzaprine 10 mg oral tablet) 1 tab(s) Oral 3 times a day Duration: 14 Days PRN spasms ?? Pickup at [place] [address] Changed Durable Medical Equipment (Inhaler Spacer ) See instructions SKIP - Obstructive sleep apnea Anxiety and depression Morbid obesity with BMI of 40.0-44.9, adult For use with Albuterol inhaler, as needed ?? Changed HydrOXYzine (hydrOXYzine pamoate 50 mg oral capsule) 1 capsule Oral Every 6 hours as needed for Anxiety Changed Losartan (losartan 50 mg oral tablet) 1 tab(s) Oral Daily Unchanged Albuterol (ProAir HFA 90 mcg/ inh inhalation aerosol with adapter) 2 puff(s) Inhalation Every 6 hours as needed for NEEDED Unchanged EPINEPHrine (EpiPen 2-Michael 0.3 mg injectable kit) 0.3 Milligram Intramuscular Once as needed for severe allergic reaction may repeat if necessary ?? Pharmacy Information [facility]: [address], [place] [id number] [phone] ?? What How Much When Why Comments Stop Taking Ibuprofen (ibuprofen 800 mg oral tablet) 1 tab(s) Oral 3 times a day as needed for NEEDED FOR PAIN( TAKE WITH FOOD OR MILK. ?? Stop Taking Magnesium Oxide (magnesium oxide 250 mg oral tablet) See instructions TAKE 1 TABLET BY MOUTH DAILY AT BEDTIME FOR 14 DAYS ?? Stop Taking Magnesium Oxide (magnesium oxide 250 mg oral tablet) See instructions TAKE 1 TABLET BY MOUTH DAILY AT BEDTIME FOR 14 DAYS ?? Stop Taking Magnesium Oxide (magnesium oxide 250 mg oral tablet) See instructions TAKE 1 TABLET BY MOUTH DAILY AT BEDTIME FOR 14 DAYS ?? Stop Taking Metformin (metFORMIN 750 mg oral tablet, extended release) 1 tab(s) Oral Daily Stop Taking Metformin (metFORMIN 750 mg oral tablet, extended release) See instructions TAKE 1 TABLET BY MOUTH DAILY ?? Stop Taking Oxycodone (oxyCODONE 5 mg oral tablet) 1 tab(s) Oral Every 8 hours as needed for Pain , Moderate Duration: 30 Days mass pat ok, ok for less. Take only as needed. ?? Stop Taking Oxycodone (oxyCODONE 5 mg oral tablet) 1 tab(s) Oral Every 8 hours as needed for Pain , Moderate Chronic knee pain Swelling of right elbow joint Duration: 15 Days mass pat ok, ok for less. Take only as needed. ?? Stop Taking Phentermine (phentermine 30 mg oral capsule) 1 capsule Oral Daily in the morning Morbid obesity Duration: 30 Days Stop Taking Phentermine (phentermine 30 mg oral capsule) 1 capsule Oral Daily in the morning Morbid obesity Duration: 30 Days Stop Taking Triamcinolone Topical (triamcinolone 0.1% topical cream) See instructions APPLY TOPICALLY TO THE AFFECTED AREA ON ARMS AND LEGS THREE TIMES DAILY. MIX WITH 16 OUNCES OF EUCERIN CREAM ?? Test Results Below is a partial list of the most recent Laboratory test results done prior to this discharge. You may have had other tests and procedures not included in this list. Please discuss all test resultswith your provider. BUN (05/18/2022) ???BUN - 17 mg/dL CBC (05/18/2022) ???WBC - 14.1 k/mm3???RBC - 3.81 m/mm3???Hgb - 10.7 Gm/dL???Hct - 33.1 %???MCV - 86.9 femtoliters???MCH - 28.1 pg???MCHC - 32.3 g/dL???Platelet Count - 356 k/mm3???RDW-SD - 40.1 femtoliters???MPV - 9.8 femtoliters???Nucleated RBC (Automated) - 0.0 #/100 WBC'S???Abs. NRBC - 0.0 k/mm3 COVID-19 (NOVEL CORONAVIRUS), PCR (05/17/2022) ???COVID-19 by RT-PCR - NEGATIVE Creatinine (05/18/2022) ???Creatinine-Blood - 0.9 mg/dL???Estimated GFR Creatinine - 105 ML/MIN/1.73 M2 Electrolytes (05/18/2022) ???Sodium - 139 mmol/L???Potassium - 4.0 mmol/L???Chloride - 103 mmol/L???Bicarbonate Level - 25 mmol/L???Anion Gap - 11 Allergies (NKA means No Known Allergies) No Known Medication Allergies Other Food Allergy??(tuna fish) Seafood Problems Active Problems??(11) Adjustment disorder?? Chronic knee pain?? Chronic low back pain?? Daytime sleepiness?? Hypertension?? Leg cramping?? Morbid obesity?? SKIP - Obstructive sleep apnea?? Prediabetes?? Severe obesity?? Severe obesity (BMI 35.0-39.9) with comorbidity?? Education Materials Below is the list of Educational Leaflet Providered with your Discharge Instructions. Total Knee Replacement Discharge Instructions?? Valuables and Belongings I fully understand and agree that [facility] accepts no responsibility for all my personal property including clothing, toilet articles, radios, jewelry, dentures, hearing aids, rings, money, or any other property that is in my possession or is brought to me after admission. I understand certain valuables may be placed in a hospital safe for a short period of time. I understand that the hospital is not liable for loss or damage due to accident, fire, or other natural occurrence while said property is in the safe. I accept full responsibility for any personal property that I keep with me, and will not hold the hospital responsible in case of loss or disappearance. I acknowledge that i have been encouraged to send valuables and belongings home. ?? No Valuables/Belongings: No valuables/belongings present Review of Valuable and Belonging List: With patient Date for Pt to Sign Valuables/Belongings: 05/17/22 08:40:00 ?? Valuables & Belongings ?? Clothes Electronic devices Jewelry Monetary Items Personal devices Miscellaneous Medications (Valuables) Valuables at Bedside Pants, Shirt, Shoes, Undergarments Cell phone ? Valuables Sent Home ? Valuables Sent to Security ? Other Discharge Information ? Case Management Discharge Plan?? Discharge Plan?? Discharge Agency Information?? Discharge Level of Care at Discharge: Homehealth/VNA Name of Agency #1: [facility] Discharge VNA/Hospice/Home Care: [facility] Service Categories #1: Physical Therapy ?? Service Comments #1: [facility] will call you at home to coordinate home PT visit. If you do not hear from them give them a call. ?? Pulmonary Rehab Status?? Pulmonary Rehab Discharge Status?? Respiratory Rate: 18 br/min ? Common Emergency Awareness Tips IS IT A STROKE? Act FAST and Check for these signs: FACE Does the face look uneven? ARM Does one arm drift down? SPEECH Does their speech sound strange? TIME Call at any sign of stroke ?? Heart Attack Signs Chest discomfort: Most heart attacks involve discomfort in the center of the chest and lasts more than a few minutes, or goes away and comes back. It can feel like uncomfortable pressure, squeezing, fullness or pain. Discomfort in upper body: Symptoms can include pain or discomfort in one or both arms, back, neck, jaw or stomach. Shortness of breath: With or without discomfort. Other signs: Breaking out in a cold sweat, nausea, or lightheaded. Remember, MINUTES DO MATTER. If you experience any of these heart attack warning signs, call to get immediate medical attention! ?? Smoking can increase your chances of developing chronic health problems and can cause harmful effects to other family members in your house. If you smoke, you are strongly encouraged to quit. Please call [facility] [employer] [facility] at [phone] or [phone] ([phone]) or log in to [email or web address] for referrals to smoking cessation programs. ?? The National Suicide Prevention Hotline is available 24/7 if you or someone you know needs to find a reason to keep living. By calling 8-734-072-tpab (1502) you'll be connected to a skilled, trained counselor at a crisis center in your area. INPATIENT DISCHARGE INSTRUCTIONS SIGNATURE PAGE EDD RICKETTS Location:[facility] Registration Date and Time:05/17/2022 04:47 EST Primary Care Physician: Ab FRAGA, Margarito Dolan, I EDD RICKETTS, have received the above patient education materials/instructions and have verbalized understanding. If ambulance or transport services are being used I further acknowledge being given a choice of service. ?? If you need to contact me, please call me at this number: . Patient/Assembler Fitter Name: Patient/Assembler Fitter Signature: Relationship to Patient: Witness Name/Signature: Date: * Jaja Arshad RN: PERFORM Event Display: Patient Education Leaflets Authored Date: [id number] Total Knee Replacement Discharge Instructions ?? 667 Total Knee Replacement Discharge Instructions ??? Please read and review your Total Knee Replacement Book for detailed information ??? Your appetite may be decreased but try to maintain a good balanced diet ?? Ice and elevation ?Ice is important to help keep swelling down. ?Keep elevated as much as possible. ?Ice the knee 4 times a day for 20 minutes each time. Be sure not to put the ice/ice pack directly on your skin. Use a dish towel or something similar between the ice and your skin. ??? Moving ? Get up and walk frequently. ??? Do 20 ankle pumps every hour. ??? Complete your exercises 4times a day, bending and straightening your knee ??? Begin exercises the evening you go home ??? Moving is especially important. This helps to prevent blood clots. Take short frequent walks. ? Wear your knee brace when walking until your surgeon or physical therapist tells you to stop. ??? You may sleep with or without the brace and sleep anyway you are comfortable. ??? Place a pillow underthe ankle/lower leg when lying down to help with extension of your knee. ??? Do not put a pillow under your knee ??? Continue to move your foot up and down, this exercise helps to prevent blood clotsand to help reduce swelling in your knee ??? No driving until approved by your surgeon ?? Incision ?Your incision is closed with absorbable stitches and surgical glue. ?The dressing iswaterproof. You may shower the next day. ??? You may develop some discoloration around your incision (yellowish or bruising) ??? Your dressing will stay on for 1-2 weeks ?You cannot go in a bath, pool, ocean, pond, gómez or jacuzzi for 6 weeks. This is to reduce your risk of infection ? You may have some numbness around the incision. This is normal and will improve with time. Some patients have numbness that does not completely go away. ?? When to call the Surgeon?CALL [phone] ?If you have shortness of breath or chest pain, call 911 or go to the nearest emergency department. ??? If you have drainage and/or redness around your wound. ?If you have a fever greater than 101.5 (38.5 degrees Celsius). ?If you have persistent calf pain or swelling (This couldbe a blood clot). ??? If your pain is worsening. ? If you have any difficulty with urination or burning with urination ? XR Knee - right 1 or 2 Views * [facility] , CIS S: TRANSCRIBE Ko Stapleton MD: VERIFY Event Display: Result: Authored Date: [id number] Right knee, 2 views Reason: Postop; COMPARISON: Pre-op 07/05/2020 FINDINGS: New femoral and tibial knee replacement hardware in typical position. No periprosthetic fracture. Typical periarticular soft tissue emphysema. No retained instruments. IMPRESSION: Typical postoperative appearance. WSN: [id number] Ordering Physician: Jacob Schmid Dictated By: Ko Stapleton MD Dictated Date/Time: 05/17/22 2:37 pm Reviewed By: Ko Stapleton MD Signed By: Ko Stapleton MD Signed Date/Time: 05/17/22 2:37 pm Transcribed By: TRISTAN Transcribed Date/Time: 05/17/22 2:36 pm Patient Care team information Care Team Personnel Name: Margarito Berger MD Position: [facility] Primary Care Physician Member Role: PCP Address: Address: [address] [place] [address] Name: Bhumika Castillo RN Position: [facility] RN Member Role: Primary Care Nurse Name: Jaja Arshad RN Position: S RN Member Role: Primary Care Nurse Name: Ludwin Butcher RN Position: [facility] RN Member Role: Primary Care Nurse Care Team Related Persons Name: GARRETT FUENTES Address: home [address] [place] [address] Name: MARLO REINOSO Name: PT STS, NONE Name: EFFIE RICKETTS Name: RANDALL RICKETTS
--- OUTSIDE RECORDS SUMMARY | 2023-09-25 00:28 | XMS_ITS | Continuity of Care Document ---
Author Organization [facility] Address [address] [place] [address]- Care Team Providers Care Mixologist Name Role Phone Margarito Berger MD Primary Care Physician Encounter [facility] Date(s): 02/24/23 - 03/26/23 [facility] [address] [place] [address]- Allergies, Adverse Reactions, Alerts No Known Medication [...] 03/24/23 12:45:00 EST, Route to Pharmacy Electronically, [facility] #[id number], Partial fill upon patient request if the prescription is... Start Date: 03/24/23 Status: Ordered diclofenac sodium 75 mg oral delayed release tablet See Instructions, TAKE 1 TABLET BY MOUTH TWICE DAILY WITH FOOD DIRECTED, # 60 tablet, 1 Refills,03/11/23 16:29:00 EST, [facility] #[id number], 176.8, cm, 01/24/23 10:59:00 EDT, Height, 127.4, kg, 05/17/22 4:58:00 EST, Dry Weight Start Date: 03/11/23 Status: Ordered EpiPen 2-Michael 0.3 mg injectable kit = 0.3 mg, Intramuscular, Once, PRN severe allergic reaction, may repeat if necessary, # 2 each, 0 Refills, Soft Stop, 01/24/23 12:05:00 EDT, [facility] #[id number], 176.8, cm, 01/24/23 10:59:00 EDT, Height, 127.4, kg, 05/17/22 4:58:00 EST, Dry We... Start Date: 01/24/23 Status: Ordered hydrOXYzine hydrochloride 50 mg oral tablet 1 tablet = 50 mg, By Mouth, 3 times a day, # 90 tablet, 1 Refills, Maintenance, 02/12/23 8:08:00 EDT, [facility] #[id number], 176.8, cm, 01/24/23 10:59:00 EDT, Height, 127.4, kg, 05/17/22 4:58:00 EST, Dry Weight Start Date: 02/12/23 Status: Ordered losartan 50 mg oral tablet 1 tablet, By Mouth, Daily, # 90 tablet, 1 Refills, Maintenance, 11/28/22 21:33:00 EDT, [facility] #[id number], 176.8, cm, 11/05/22 11:22:00 EDT, Height, 127.4, kg, 05/17/22 4:58:00 EST, Dry Weight Start Date: 11/28/22 Status: Ordered mupirocin 2% topical ointment See Instructions, APPLY TOPICALLY TO THE AFFECTED AREA THREE TIMES DAILY FOR 14 DAYS, # 22 Gm, 0 Refills, Maintenance, 03/11/23 16:29:00 EST, [facility] #[id number], 10, APPLY TOPICALLY TO THE AFFECTED AREA THREE TIMES DAILY FOR 14 DAYS, 176.8, c... Start Date: 03/11/23 Status: Ordered oxyCODONE 5 mg oral tablet 5 mg, 1, tablet, By Mouth, Every 8 hours, PRN, mass pat ok, ok for less. TAKE ONLY NEEDED, # 45 tablet, Refills 0, Tot. Refills 0, Maintenance, Pain , Moderate, 03/24/23 14:27:00 EST, Route to Pharmacy Electronically, [facility] #[id number], P... Start Date: 03/24/23 Stop Date: 04/08/23 Status: Ordered oxyCODONE 5 mg oral tablet 5 mg, 1, tablet, By Mouth, Every 8 hours, PRN, for 15 days, mass pat ok, ok for less. TAKE ONLY NEEDED, # 45 tablet, Refills 0, Tot. Refills 0, Hard Stop 03/27/23 16:48:00 EST, Pain , Moderate, 03/12/23 16:48:00 EST, Route to Pharmacy [facility]... Start Date: 03/12/23 Stop Date: 03/27/23 Status: Ordered predniSONE 20 mg oral tablet See Instructions, 2 tablets By Mouth Daily for 5 days and then 1 tablet by mouth daily for 5 days, # 15 tablet, 0 Refills, Soft Stop, 01/08/23 16:53:00 EDT, Tablet, [facility] #[id number], Partial fill upon patient request if the prescription is... Start Date: 01/08/23 Status: Ordered triamcinolone 0.025% topical ointment 1 application, Topically, 2 times a day, for 14 days, # 60 Gm, 3 Refills, Acute 03/27/23 12:53:00 EST, 01/30/23 12:53:00 EDT, Ointment, [facility] #[id number], Partial fill upon patient request if the prescription is for a schedule II opioid drug... Start Date: 01/30/23 Stop Date: 03/27/23 Status: Ordered Ventolin HFA 108 mcg/inh inhalation aerosol with adapter 2 puffs, Inhalation, Every 6 hours, # 8.5 Gm, 6 Refills, Maintenance, 12/23/22 11:39:00 EDT, [facility] #[id number], 176.8, cm, 12/23/22 11:25:00 EDT, Height, 127.4, kg, 05/17/22 4:58:00 EST, Dry Weight Start Date: 12/23/22 Stop Date: 07/21/23 Status: Ordered Problem List Condition Confirmation Course Effective Dates Status [facility] Informant Adjustment disorder Confirmed Active [...] Team Personnel Name: Margarito Berger MD Position: [facility] Physician - Primary Care Member Role: PCP Address: Address: [address] [place] [address] Name: Bhumika Castillo RN Position: [facility] SN RN Member Role: Primary Care Nurse Name: Jaja Arshad RN Position: [facility] RN Member Role: Primary Care Nurse Name: Ludwin Butcher RN Position: [facility] RN Member Role: Primary Care Nurse Care Team Related Persons Name: GARRETT FUENTES Address: home [address] [place] [id number] Name: MARLO REINOSO Name: PT STS, NONE Name: EFFIE RICKETTS Name: RANDALL RICKETTS
--- OUTSIDE RECORDS SUMMARY | 2023-09-25 00:28 | XMS_ITS | Continuity of Care Document ---
Author Organization [facility] Address [address] [place] [address]- Care Team Providers Care Software Test Automation Engineer Name Role Phone Margarito Berger MD Primary Care Physician Encounter [facility] Date(s): 05/27/23 - 06/26/23 [facility] [address] [place] [address]- Allergies, Adverse Reactions, Alerts No Known Medication [...] tablet, 0 Refills, Maintenance, 05/28/23 8:20:00 EST, [facility] #[id number], 176.8, cm, 04/30/23 7:39:00 EST, Height, 127.4, kg, 05/17/22 4:58:00 EST, Dry Weight Start Date: 05/28/23 Stop Date: 06/07/23 Status: Ordered cyclobenzaprine 10 mg oral tablet 1, tablet, By Mouth, 3 times a day, PRN, # 60 tablet, Refills 1, Maintenance, NEEDED FOR SPASMS,05/28/23 8:20:00 EST, Route to Pharmacy Electronically, [facility] #[id number], 176.8, cm, 04/30/23 7:39:00 EST, Height, 127.4, kg, 05/17/22 4:58:... Start Date: 05/28/23 Status: Ordered diclofenac sodium 75 mg oral delayed release tablet 1 tablet, By Mouth, 2 times a day with meals, DIRECTED., # 60 tablet, 1 Refills, Maintenance, 05/04/23 6:22:00 EST, [facility] #[id number], 176.8, cm, 04/30/23 7:39:00 EST, Height, 127.4, kg,05/17/22 4:58:00 EST, Dry Weight Start Date: 05/04/23 Status: Ordered doxycycline hyclate 100 mg oral tablet 1 tablet, By Mouth, 2 times a day, # 28 tablet, 0 Refills, Maintenance, 05/28/23 8:20:00 EST, [facility] #[id number], 176.8, cm, 04/30/23 7:39:00 EST, Height, 127.4, kg, 05/17/22 4:58:00 EST, Dry Weight Start Date: 05/28/23 Stop Date: 06/11/23 Status: Ordered EpiPen 2-Michael 0.3 mg injectable kit = 0.3 mg, Intramuscular, Once, PRN severe allergic reaction, may repeat if necessary, # 2 each, 0 Refills, Soft Stop, 01/24/23 12:05:00 EDT, [facility] #[id number], 176.8, cm, 01/24/23 10:59:00 EDT, Height, 127.4, kg, 05/17/22 4:58:00 EST, Dry We... Start Date: 01/24/23 Status: Ordered hydrOXYzine hydrochloride 50 mg oral tablet 1 tablet = 50 mg, By Mouth, 3 times a day, PRN as needed for itching, # 90 tablet, 1 Refills, Maintenance, 06/18/23 13:07:00 EST, [facility] #[id number], 176.8, cm, 04/30/23 7:39:00 EST, Height,127.4, kg, 05/17/22 4:58:00 EST, Dry Weight Start Date: 06/18/23 Status: Ordered hydrOXYzine hydrochloride 50 mg oral tablet 1 tablet = 50 mg, By Mouth, 3 times a day, # 90 tablet, 1 Refills, Maintenance, 04/25/23 11:23:00 EST, [facility] #[id number], 176.8, cm, 01/24/23 10:59:00 EDT, Height, 127.4, kg, 05/17/22 4:58:00 EST, Dry Weight Start Date: 04/25/23 Status: Ordered losartan 50 mg oral tablet 1 tablet, By Mouth, Daily, # 90 tablet, 1 Refills, Maintenance, 06/05/23 18:32:00 EST, [facility] #[id number], 176.8, cm, 04/30/23 7:39:00 EST, Height, 127.4, kg, 05/17/22 4:58:00 EST, Dry Weight Start Date: 06/05/23 Status: Ordered metFORMIN 750 mg oral tablet, extended release 1 tablet = 750 mg, By Mouth, Daily, # 90 tablet, 1 Refills, Maintenance, 05/19/23 11:12:00 EST, ER Tablet, [facility] #[id number], Partial fill upon patient request if the prescription is for a schedule II opioid drug., 176.8, cm, 04/30/23 7:39:0... Start Date: 05/19/23 Status: Ordered mupirocin 2% topical ointment See Instructions, APPLY TOPICALLY TO THE AFFECTED AREA THREE TIMES DAILY FOR 14 DAYS, # 22 Gm, 0 Refills, Maintenance, 06/03/23 13:22:00 EST, [facility] #[id number], APPLY TOPICALLY TO THE AFFECTED AREA THREE [...] 06/23/23 7:57:00 EST, Route to Pharmacy Electronically, [facility]... Start Date: 06/23/23 Stop Date: 07/08/23 Status: Ordered predniSONE 20 mg oral tablet See Instructions, 2 tablets By Mouth Daily for 5 days and then 1 tablet by mouth daily for 5 days, # 15 tablet, 0 Refills, Soft Stop, 01/08/23 16:53:00 EDT, Tablet, [facility] #[id number], Partial fill upon patient request if the prescription is... Start Date: 01/08/23 Status: Ordered triamcinolone 0.025% topical ointment 1 application, Topically, 3 times a day, Apply to affected area, # 15 Gm, 1 Refills, Maintenance, 06/03/23 9:33:00 EST, Ointment, [facility] #[id number], Partial fill upon patient request if theprescription is for a schedule II opioid drug., 1 a... Start Date: 06/03/23 Status: Ordered Ventolin HFA 108 mcg/inh inhalation aerosol with adapter 2 puffs, Inhalation, Every 6 hours, # 18 Gm, 5 Refills, Maintenance, 05/25/23 6:11:00 EST, [facility] #[id number], 176.8, cm, 04/30/23 7:39:00 EST, Height, 127.4, [...] Team Personnel Name: Margarito Berger MD Position: [facility] Physician - Primary Care Member Role: PCP Address: Address: [address] [place] [id number] Name: Bhumika Castillo RN Position: [facility] RN Member Role: Primary Care Nurse Name: Jaja Arshad RN Position: S RN Member Role: Primary Care Nurse Name: Ludwin Butcher RN Position: S RN Member Role: Primary Care Nurse Care Team Related Persons Name: GARRETT FUENTES Address: home [address] [place] [address] Name: MARLO REINOSO Name: PT STS, NONE Name: EFFIE RICKETTS Name: RANDALL RICKETTS
--- OUTSIDE RECORDS SUMMARY | 2023-09-25 00:28 | XMS_ITS | Continuity of Care Document ---
Author Organization [facility] Address Adult Weight Managem ent [address] [place] [address]- Care Team Providers Care Inhalation Therapist Name Role Phone Jorge Luis FRAGA, Tra Dolan Primary Care Physician [place] [facility] [place] 11/17/19 - 12/17/19 [facility] Adult Weight Management [address] [place] [address]- [facility] Attending Physician: Admtr, [id number] Admitting Physician: Admtr, Ar8 Referring Physician: Admtr, Ar8 Allergies, Adverse Reactions, Alerts No Known Medication [...] 09/05/2010:22:00 EDT, Aerosol, Route to Pharmacy Electronically, [id number], [facility] #[id number], 176.8, cm, 12/31/18 14:22:0... Start Date: 09/06/19 Status: Ordered Chantix Starter Pack 0.5 mg-1 mg oral tablet 1 tablet, By Mouth, 2 times a day, as directed on package labeling, # 53 tablet, 0 Refills, Maintenance, 02/19/19 14:26:26 EDT, Tablet, 1 tablet By Mouth 2 times a day,Instr:as directed on package labeling Start Date: 02/19/19 Status: Ordered EpiPen 2-Michale 0.3 mg injectable kit = 0.3 mg, Intramuscular, Once, PRN severe allergic reaction, may repeat if necessary, # 2 each, 0 Refills, Soft Stop, 09/03/17 13:34:23 EDT Start Date: 09/03/17 Status: Ordered hydrOXYzine hydrochloride 50 mg oral tablet 1 tablet, By Mouth, 4 times a day, PRN NEEDED FOR ITCHING, # 120 tablet, 0 Refills, Acute, 11/11/19 13:36:00 EDT, [facility] #[id number], 176.8, cm, 09/09/19 10:48:00 EDT, Height Start Date: 11/11/19 Status: Ordered ibuprofen 800 mg oral tablet 1 tablet = 800 mg, By Mouth, 3 times a day, PRN as needed for pain, with food or milk, # 90 tablet,5 Refills, Maintenance, Tablet, 1 tablet By Mouth 3 times a day,PRN:as needed for pain,Instr:with food or milk Start Date: 03/08/13 Status: Ordered triamcinolone 0.1% topical cream See Instructions, APPLY TOPICALLY TO THE AFFECTED AREA ON ARMS AND LEGS THREE TIMES DAILY FOR 14 DAYS. MIX WITH 16 OUNCES EUCERIN CREAM, # 80 Gm, 0 Refills, Acute, [facility] #[id number], 25, APPLY TOPICALLY TO THE AFFECTED AREA ON ARMS AND LEGS... Start Date: 11/11/19 Status: Ordered Problem List Condition Effective Dates Status Health Status Inform ant Chronic knee pain(Confirmed) Active Chronic low back pain(Confirmed) Active Hypertension(Confirmed) Active Anxiety and depression(Confirmed) Active SKIP - Obstructive sleep apnea(Confirmed) Active Chronic use of opiate for th erapeutic purpose(Confirmed) Active Social History Social History Type Response Smoking Status 5-9 cigarettes (betw een 1/4 to 1/2 pack)/day in last 30 days; Tobacco use times per day: 7; entered on: 12/31/18 Sex
--- OUTSIDE RECORDS SUMMARY | 2023-09-25 00:28 | XMS_ITS | Continuity of Care Document ---
Author Organization [facility] Address [address] [place] [address]- Care Team Providers Care Internet Systems Administrator Name Role Phone Ab FRAGA, Margarito Dolan Primary Care Physician [place] [facility] [place] [facility] [address] [place] [address]- Allergies, Adverse Reactions, Alerts No Known Medication [...] 0 Refills, Soft Stop, 11/06/20 13:52:00 EDT, [facility] #[id number], 176.8, cm, 11/06/20 13:38:00 EDT, Height, 140.3, kg, 11/06/20 13:38:00 EDT, Dry W... Start Date: 11/06/20 Status: Ordered ibuprofen 800 mg oral tablet 800 mg, 1, tablet, By Mouth, 3 times a day, PRN, with food or milk, # 90 tablet, Refills 0, Tot. Refills 0, Maintenance, NEEDED FOR PAIN, 06/27/21 10:52:00 EST, Route to Pharmacy Electronically, [facility] #[id number], 176.8, cm, 06/21/21 15:2... Start Date: 06/27/21 Status: Ordered Inhaler Spacer Inhaler Spacer , [...] 02/26/21 14:39:00 EDT, Route to Pharmacy Electronically, [facility] #[id number], Partial fill upon patientrequest if the prescription is for a schedule II op... Start Date: 02/26/21 Stop Date: 05/27/21 Status: Ordered losartan 50 mg oral tablet 1 tablet = 50 mg, By Mouth, Daily, for 30 days, # 30 tablet, 5 Refills, Physician Stop 10/13/21 14:50:00 EDT, 04/16/21 14:50:00 EST, [facility] #[id number], 176.8, cm, 02/01/21 16:07:00 EDT, Height, 140.3, kg, 11/06/20 13:38:00 EDT, Dry Weight Start Date: 04/16/21 Stop Date: 10/13/21 Status: Ordered metFORMIN 750 mg oral tablet, extended release 1 tablet, By Mouth, Daily, # 60 tablet, 5 Refills, [facility] #[id number], 176.8, cm, 02/02/2116:07:00 EDT, Height, 140.3, kg, 11/06/20 13:38:00 EDT, Dry Weight Start Date: 03/30/21 Status: Ordered oxyCODONE 5 mg oral tablet 5 mg, 1, tablet, By Mouth, Every 8 hours, PRN, Take only as needed, # 45 tablet, Refills 0, Tot. Refills 0, Maintenance, Pain , Moderate, 07/18/21 20:02:00 EDT, Route to Pharmacy Electronically, [facility] #[id number], Partial fill upon patient r... Start Date: 07/18/21 Status: Ordered phentermine 30 mg oral capsule 1 capsule = 30 mg, By Mouth, Daily in AM, for 30 days, # 30 capsule, 0 Refills, Acute 07/21/21 15:49:00 EDT, 06/21/21 15:49:00 EST, Capsule, [facility] #30, Partial fill upon patient request if the prescription is for a schedule II opioid Start Date: 06/21/21 Stop Date: 07/21/21 Status: Ordered ProAir HFA 90 mcg/inh inhalation aerosol with adapter 2, puffs, Inhalation, Every 6 hours, PRN, # 8.5 Gm, Refills 5, Route to Pharmacy Electronically, [id number], [facility] #[id number], 176.8, cm, 05/18/21 14:17:00 EST, Height, 140.3, kg, 11/06/20 13:38:00 EDT, Dry Weight Start Date: 06/13/21 Status: Ordered triamcinolone 0.1% topical cream See Instructions, APPLY TOPICALLY TO THE AFFECTED AREA ON ARMS AND LEGS THREE TIMES DAILY. MIX WITH16 OUNCES OF EUCERIN CREAM, # 80 Gm, 0 Refills, [facility] #[id number], 14, APPLY TOPICALLY TOTHE AFFECTED AREA ON ARMS AND LEGS THREE TIMES RAMESH... Start Date: 05/18/21 Status: Ordered Problem List Condition Effective Dates Status Health Status Inform ant Adjustment disorder(Confirmed) Active BMI 45.0-49.9, adult(Confirmed) Active Chronic knee pain(Confirmed) Active Chronic low back pain(Confirmed) Active Daytime sleepiness(Confirmed) Active Hypertension(Confirmed) Active Morbid obesity(Confirmed) Active SKIP - Obstructive sleep apnea(Confirmed) Active Prediabetes(Confirmed) Active Social History Social History Type Response Smoking Status 5-9 cigarettes (betw een 1/4 to 1/2 pack)/day in last 30 days; Tobacco use times per day: 7; entered on: 12/31/18 Sex
--- OUTSIDE RECORDS SUMMARY | 2023-09-25 00:28 | XMS_ITS | Continuity of Care Document ---
Author Organization [facility] Address [address] [place] [address] [address] [place] [address]- Care Team Providers Care Protection Officer Name Role Phone Ab FRAGA, Margarito Dolan Primary Care Physician Encounter [facility] [place] Date(s): 11/20/22 - 01/09/[address] [place] [address]- Attending Physician: Yohan Amezquita MD Allergies, Adverse Reactions, Alerts No Known [...] 12/31/22 7:50:00 EDT, Route to Pharmacy Electronically, [facility] #[id number], Partial fill upon patient request if the prescription is f... Start Date: 12/31/22 Status: Ordered diclofenac sodium 75 mg oral delayed release tablet See Instructions, TAKE 1 TABLET BY MOUTH TWICE DAILY WITH FOOD DIRECTED, # 60 tablet, 1 Refills,12/16/22 0:00:00 EDT, [facility] #[id number], 176.8, cm, 12/09/22 9:21:00 EDT, Height, 127.4, kg, 05/17/22 4:58:00 EST, Dry Weight Start Date: 12/16/22 Status: Ordered EpiPen 2-Michael 0.3 mg injectable kit = 0.3 mg, Intramuscular, Once, PRN severe allergic reaction, may repeat if necessary, # 2 each, 0 Refills, Soft Stop, 11/06/20 13:52:00 EDT, [facility] #[id number], 176.8, cm, 11/06/20 13:38:00 EDT, Height, 140.3, kg, 11/06/20 13:38:00 EDT, Dry W... Start Date: 11/06/20 Status: Ordered hydrOXYzine hydrochloride 50 mg oral tablet 1 tablet = 50 mg, By Mouth, 3 times a day, # 60 tablet, 1 Refills, Maintenance, 12/16/22 12:01:00 EDT, [facility] #[id number], 176.8, cm, 12/09/22 9:21:00 EDT, Height, 127.4, kg, 05/17/22 4:58:00 EST, Dry Weight Start Date: 12/16/22 Status: Ordered ibuprofen 800 mg oral tablet 1, tablet, By Mouth, 3 times a day, PRN, TAKE WITH FOOD OR MILK., # 90 tablet, Refills 5, Tot. Refills 5, Maintenance, NEEDED FOR PAIN(, 08/27/22 20:18:00 EDT, Route to Pharmacy Electronically, [facility] #[id number], 176.8, cm, 05/01/22 13:41... Start Date: 08/27/22 Status: Ordered losartan 50 mg oral tablet 1 tablet, By Mouth, Daily, # 90 tablet, 1 Refills, Maintenance, 11/28/22 21:33:00 EDT, [facility] #[id number], 176.8, cm, 11/05/22 11:22:00 EDT, Height, 127.4, kg, 05/17/22 4:58:00 EST, Dry Weight Start Date: 11/28/22 Status: Ordered mupirocin 2% topical ointment 1 application, Topically, 3 times a day, for 14 days, # 22 Gm, 3 Refills, Acute 01/20/23 16:10:00 EDT, 11/25/22 16:10:00 EDT, Ointment, [facility] #[id number], Partial fill upon patient request if the [...] 01/07/23 14:25:00 EDT, Route to Pharmacy Electronically, [facility] #[id number], P... Start Date: 01/07/23 Stop Date: 01/22/23 Status: Ordered oxyCODONE 5 mg oral tablet 5 mg, 1, tablet, By Mouth, Every 8 hours, Was only able to get partial fill (16 tablets) from [facility]; mass pat Ok, # 29 tablet, Refills 0, Tot. Refills 0, Acute 01/17/23 15:17:00 EDT, 12/20/22 15:21:00 EDT, Route to Pharmacy Electronically,... Start Date: 12/20/22 Stop Date: 01/17/23 Status: Ordered oxyCODONE 5 mg oral tablet 5 mg, 1, tablet, By Mouth, Every 8 hours, Masspat checked, # 29 tablet, Refills 0, Tot. Refills 0, Acute 01/26/23 17:07:00 EDT, 01/07/23 7:30:00 EDT, Route to Pharmacy Electronically, [facility] #[id number], Partial fill upon patient request if t... Start Date: 01/07/23 Stop Date: 01/26/23 Status: Ordered predniSONE 20 mg oral tablet See Instructions, 2 tablets By Mouth Daily for 5 days and then 1 tablet by mouth daily for 5 days, # 15 tablet, 0 Refills, Soft Stop, 01/08/23 16:53:00 EDT, Tablet, [facility] #[id number], Partial fill upon patient request if the prescription is... Start Date: 01/08/23 Status: Ordered ProAir HFA 90 mcg/inh inhalation aerosol with adapter 2, puffs, Inhalation, Every 6 hours, PRN, # 8.5 Gm, Refills 5, Tot. Refills 5, 04/09/22 15:33:00 EST, Route to Pharmacy Electronically, [id number], [facility] #[id number], 176.8, cm, 02/28/22 10:47:00 EDT, Height, 123.4,... Start Date: 04/09/22 Status: Ordered Ventolin HFA 108 mcg/inh inhalation aerosol with adapter 2 puffs, Inhalation, Every 6 hours, # 8.5 Gm, 6 Refills, Maintenance, 12/23/22 11:39:00 EDT, [facility] #[id number], 176.8, cm, 12/23/22 11:25:00 EDT, Height, 127.4, [...] Team Personnel Name: Margarito Berger MD Position: [facility] Physician - Primary Care Member Role: PCP Address: Address: [address] [place] [address] Name: Bhumika Castillo RN Position: [facility] SN RN Member Role: Primary Care Nurse Name: Jaja Arshad RN Position: S RN Member Role: Primary Care Nurse Name: Ludwin Butcher RN Position: [facility] RN Member Role: Primary Care Nurse Care Team Related Persons Name: GARRETT FUENTES Address: home [address] [place] [address] Name: MARLO REINOSO Name: PT STS, NONE Name: EFFIE RICKETTS Name: RANDALL RICKETTS
--- OUTSIDE RECORDS SUMMARY | 2023-09-25 00:28 | XMS_ITS | Continuity of Care Document ---
Author Organization [facility] Address [address] [place] [address]- Care Team Providers Care Film Painter Name Role Phone aMrgarito Berger MD Primary Care Physician [place] [facility] [place] 10/30/21 - 11/29/21 [facility] [address] [place] [address]- Allergies, Adverse Reactions, Alerts No Known Medication [...] 0 Refills, Soft Stop, 11/06/20 13:52:00 EDT, [facility] #[id number], 176.8, cm, 11/06/20 13:38:00 EDT, Height, 140.3, kg, 11/06/20 13:38:00 EDT, Dry W... Start Date: 11/06/20 Status: Ordered ibuprofen 800 mg oral tablet 1, tablet, By Mouth, 3 times a day, PRN, TAKE WITH FOOD OR MILK., # 90 tablet, Refills 1, NEEDEDFOR PAIN(, Route to Pharmacy Electronically, [facility] #[id number], 176.8, cm, 11/05/21 15:43:00 EDT, Height, 123.4, kg, 10/12/21 15:16:00 EDT, D... Start Date: 11/13/21 Status: Ordered Inhaler Spacer Inhaler Spacer , [...] Mouth, Daily, # 30 tablet, 5 Refills, [facility] #[id number], 176.8, cm, 11/05/2214:43:00 EDT, Height, 123.4, kg, 10/12/21 15:16:00 EDT, Dry Weight Start Date: 11/13/21 Status: Ordered metFORMIN 750 mg oral tablet, extended release 1 tablet, By Mouth, Daily, # 60 tablet, 5 Refills, [facility] #[id number], 176.8, cm, 02/02/2116:07:00 EDT, Height, 140.3, kg, 11/06/20 13:38:00 EDT, Dry Weight Start Date: 03/30/21 Status: Ordered oxyCODONE 5 mg oral tablet 5 mg, 1, tablet, By Mouth, Every 8 hours, PRN, mass pat ok, ok for less. Take only as needed., # 45tablet, Refills 0, Tot. Refills 0, Maintenance, Pain , Moderate, 09/28/21 17:08:00 EDT, Route to Pharmacy Electronically, [facility] #[id number],... Start Date: 09/28/21 Stop Date: 10/13/21 Status: Ordered oxyCODONE 5 mg oral tablet 5 mg, 1, tablet, By Mouth, Every 8 hours, PRN, mass pat ok, ok for less. Take only as needed., # 45tablet, Refills 0, Tot. Refills 0, Maintenance, Pain , Moderate, 11/16/21 12:23:00 EDT, Route to Pharmacy Electronically, [facility] #[id number],... Start Date: 11/16/21 Stop Date: 12/01/21 Status: Ordered phentermine 30 mg oral capsule 1 capsule = 30 mg, By Mouth, Daily in AM, for 30 days, # 30 capsule, 0 Refills, Acute 11/30/21 14:53:00 EDT, 10/31/21 14:53:00 EDT, Capsule, [facility] #30, Partial fill upon patient request if the prescription is for a schedule II opioid drDavie. Start Date: 10/31/21 Stop Date: 11/30/21 Status: Ordered ProAir HFA 90 mcg/inh inhalation aerosol with adapter 2, puffs, Inhalation, Every 6 hours, PRN, # 8.5 Gm, Refills 5, Route to Pharmacy Electronically, [id number], [facility] #[id number], 176.8, cm, 10/12/21 15:16:00 EDT, Height, 123.4, kg, 10/12/21 15:16:00 EDT, Dry Weight Start Date: 11/05/21 Status: Ordered triamcinolone 0.1% topical cream See Instructions, APPLY TOPICALLY TO THE AFFECTED AREA ON ARMS AND LEGS THREE TIMES DAILY. MIX WITH16 OUNCES OF EUCERIN CREAM, # 80 Gm, 0 Refills, [facility] #[id number], 14, APPLY TOPICALLY TOTHE AFFECTED AREA ON [...]
--- OUTSIDE RECORDS SUMMARY | 2023-09-25 00:28 | XMS_ITS | Continuity of Care Document ---
Author Organization [facility] Address [address] [place] [address]- Care Team Providers Care Dairy Nutritionist Name Role Phone Margarito Berger MD Primary Care Physician [place] [facility] [place] [facility] [address] [place] [address]- Allergies, Adverse Reactions, Alerts No Known Medication [...] 03/24/23 12:45:00 EST, Route to Pharmacy Electronically, [facility] #[id number], Partial fill upon patient request if the prescription is... Start Date: 03/24/23 Status: Ordered diclofenac sodium 75 mg oral delayed release tablet See Instructions, TAKE 1 TABLET BY MOUTH TWICE DAILY WITH FOOD DIRECTED, # 60 tablet, 1 Refills,03/11/23 16:29:00 EST, [facility] #[id number], 176.8, cm, 01/24/23 10:59:00 EDT, Height, 127.4, kg, 05/17/22 4:58:00 EST, Dry Weight Start Date: 03/11/23 Status: Ordered doxycycline hyclate 100 mg oral tablet See Instructions, TAKE 1 TABLET BY MOUTH TWICE DAILY FOR 14 DAYS, # 28 tablet, 0 Refills, Maintenance, 04/10/23 14:15:00 EST, [facility] #[id number], 176.8, cm, 01/24/23 10:59:00 EDT, Height, 127.4, kg, 05/17/22 4:58:00 EST, Dry Weight Start Date: 04/10/23 Status: Ordered EpiPen 2-Michael 0.3 mg injectable kit = 0.3 mg, Intramuscular, Once, PRN severe allergic reaction, may repeat if necessary, # 2 each, 0 Refills, Soft Stop, 01/24/23 12:05:00 EDT, [facility] #[id number], 176.8, cm, 01/24/23 10:59:00 EDT, Height, 127.4, kg, 05/17/22 4:58:00 EST, Dry We... Start Date: 01/24/23 Status: Ordered hydrOXYzine hydrochloride 50 mg oral tablet 1 tablet = 50 mg, By Mouth, 3 times a day, # 90 tablet, 1 Refills, Maintenance, 02/12/23 8:08:00 EDT, [facility] #[id number], 176.8, cm, 01/24/23 10:59:00 EDT, Height, 127.4, kg, 05/17/22 4:58:00 EST, Dry Weight Start Date: 02/12/23 Status: Ordered losartan 50 mg oral tablet 1 tablet, By Mouth, Daily, # 90 tablet, 1 Refills, Maintenance, 11/28/22 21:33:00 EDT, [facility] #[id number], 176.8, cm, 11/05/22 11:22:00 EDT, Height, 127.4, kg, 05/17/22 4:58:00 EST, Dry Weight Start Date: 11/28/22 Status: Ordered mupirocin 2% topical ointment See Instructions, APPLY TOPICALLY TO THE AFFECTED AREA THREE TIMES DAILY FOR 14 DAYS, # 22 Gm, 0 Refills, Maintenance, 03/27/23 8:33:00 EST, [facility] #[id number], 10, APPLY TOPICALLY TO THE AFFECTED AREA THREE TIMES DAILY FOR 14 DAYS, 176.8, cm... Start Date: 03/27/23 Status: Ordered oxyCODONE 5 mg oral tablet 5 mg, 1, tablet, By Mouth, Every 8 hours, PRN, mass pat ok, ok for less. TAKE ONLY NEEDED, # 45 tablet, Refills 0, Tot. Refills 0, Maintenance, Pain , Moderate, 04/09/23 7:37:00 EST, Route to Pharmacy Electronically, [facility] #[id number], Pa... Start Date: 04/09/23 Stop Date: 04/24/23 Status: Ordered predniSONE 20 mg oral tablet See Instructions, 2 tablets By Mouth Daily for 5 days and then 1 tablet by mouth daily for 5 days, # 15 tablet, 0 Refills, Soft Stop, 01/08/23 16:53:00 EDT, Tablet, [facility] #[id number], Partial fill upon patient request if the prescription is... Start Date: 01/08/23 Status: Ordered Ventolin HFA 108 mcg/inh inhalation aerosol with adapter 2 puffs, Inhalation, Every 6 hours, # 8.5 Gm, 6 Refills, Maintenance, 12/23/22 11:39:00 EDT, [facility] #[id number], 176.8, cm, 12/23/22 11:25:00 EDT, Height, 127.4, [...] Team Personnel Name: Margarito Berger MD Position: [facility] Physician - Primary Care Member Role: PCP Address: Address: [address] [place] [address]- Name: Bhumika Castillo RN Position: [facility] SN RN Member Role: Primary Care Nurse Name: Jaja Arshad RN Position: [facility] RN Member Role: Primary Care Nurse Name: Ludwin Butcher RN Position: [facility] RN Member Role: Primary Care Nurse Care Team Related Persons Name: FUENTESGARRETT GATICA Address: home [address] [place] [address] Name: MARLO REINOSO Name: PT STS, NONE Name: EFFIE RICKETTS Name: RANDALL RICKETTS
--- OUTSIDE RECORDS SUMMARY | 2023-09-25 00:28 | XMS_ITS | Continuity of Care Document ---
Author Organization [facility] Address [address] [place] [address]- Care Team Providers Care Occupational Health And Safety Adviser Name Role Phone Ab FRAGA, Margarito Dolan Primary Care Physician [place] [facility] [place] 09/07/23 [facility] [address] [place] [address]- Allergies, Adverse Reactions, Alerts No Known Medication [...] tablet, 0 Refills, Maintenance, 05/28/23 8:20:00 EST, [facility] #[id number], 176.8, cm, 04/30/23 7:39:00 EST, Height, 127.4, kg, 05/17/22 4:58:00 EST, Dry Weight Start Date: 05/28/23 Stop Date: 06/07/23 Status: Ordered cyclobenzaprine 10 mg oral tablet 1, tablet, By Mouth, 3 times a day, PRN, # 60 tablet, Refills 0, Maintenance, NEEDED FOR SPASMS,08/18/23 12:16:00 EDT, Route to Pharmacy Electronically, [facility] #[id number], 176.8, cm, 04/30/23 7:39:00 EST, Height, 127.4, kg, 05/17/22 4:58... Start Date: 08/18/23 Status: Ordered diclofenac sodium 75 mg oral delayed release tablet 1 tablet, By Mouth, 2 times a day with meals, DIRECTED., # 60 tablet, 5 Refills, Maintenance, 07/01/23 20:55:00 EST, [id number], 176.8, cm, 04/30/23 7:39:00 EST, Height, 127.4, kg, 05/17/22 4:58:00 EST, Dry Weight Start Date: 07/01/23 Status: Ordered doxycycline hyclate 100 mg oral tablet 1 tablet, By Mouth, 2 times a day, # 28 tablet, 0 Refills, Maintenance, 07/16/23 17:07:00 EDT, [facility] #[id number], 176.8, cm, 04/30/23 7:39:00 EST, Height, 127.4, kg, 05/17/22 4:58:00 EST, Dry Weight Start Date: 07/16/23 Stop Date: 07/30/23 Status: Ordered EpiPen 2-Michael 0.3 mg injectable kit = 0.3 mg, Intramuscular, Once, PRN severe allergic reaction, may repeat if necessary, # 2 each, 0 Refills, Soft Stop, 01/24/23 12:05:00 EDT, [id number], 176.8, cm, 01/24/23 10:59:00 EDT, Height, 127.4, kg, 05/17/22 4:58:00 EST, Dry We... Start Date: 01/24/23 Status: Ordered hydrOXYzine hydrochloride 50 mg oral tablet 1 tablet = 50 mg, By Mouth, 3 times a day, PRN as needed for itching, # 90 tablet, 1 Refills, Maintenance, 06/18/23 13:07:00 EST, [facility] #[id number], 176.8, cm, 04/30/23 7:39:00 EST, Height,127.4, kg, 05/17/22 4:58:00 EST, Dry Weight Start Date: 06/18/23 Status: Ordered hydrOXYzine hydrochloride 50 mg oral tablet 1 tablet = 50 mg, By Mouth, 3 times a day, # 90 tablet, 1 Refills, Maintenance, 04/25/23 11:23:00 EST, [facility] #[id number], 176.8, cm, 01/24/23 10:59:00 EDT, Height, 127.4, kg, 05/17/22 4:58:00 EST, Dry Weight Start Date: 04/25/23 Status: Ordered losartan 50 mg oral tablet 1 tablet, By Mouth, Daily, # 90 tablet, 1 Refills, Maintenance, 06/05/23 18:32:00 EST, [facility] #[id number], 176.8, cm, 04/30/23 7:39:00 EST, Height, 127.4, kg, 05/17/22 4:58:00 EST, Dry Weight Start Date: 06/05/23 Status: Ordered metFORMIN 750 mg oral tablet, extended release 1 tablet = 750 mg, By Mouth, Daily, # 90 tablet, 1 Refills, Maintenance, 05/19/23 11:12:00 EST, ER Tablet, [facility] #[id number], Partial fill upon patient request if the prescription is for a schedule II opioid drug., 176.8, cm, 04/30/23 7:39:0... Start Date: 05/19/23 Status: Ordered mupirocin 2% topical ointment See Instructions, APPLY TOPICALLY TO THE AFFECTED AREA THREE TIMES DAILY FOR 14 DAYS, # 22 Gm, 0 Refills, Maintenance, 06/03/23 13:22:00 EST, [facility] #[id number], APPLY TOPICALLY TO THE AFFECTED AREA THREE TIMES DAILY FOR 14 DAYS, 176.8, cm, 0... Start Date: 06/03/23 Status: Ordered oxyCODONE 5 mg oral tablet 5 mg, 1, tablet, By Mouth, Every 8 hours, PRN, for 15 days, mass pat ok, ok for less. TAKE ONLY NEEDED DNF 08/26/2023, # 45 tablet, Refills 0, Tot. Refills 0, Hard Stop 09/09/23 15:58:00 EDT, Pain, Moderate, 08/25/23 15:58:00 EDT, Route to Pharma... Start Date: 08/25/23 Stop Date: 09/09/23 Status: Ordered oxyCODONE 5 mg oral tablet 5 mg, 1, tablet, By Mouth, Every 8 hours, PRN, mass pat ok, ok for less. TAKE ONLY NEEDED DNF 09/09/2023, # 45 tablet, Refills 0, Tot. Refills 0, Maintenance, Pain , Moderate, 09/07/23 14:05:00 EDT, Route to Pharmacy Electronically, [facility]... Start Date: 09/07/23 Stop Date: 09/22/23 Status: Ordered predniSONE 20 mg oral tablet See Instructions, 2 tablets By Mouth Daily for 5 days and then 1 tablet by mouth daily for 5 days, # 15 tablet, 0 Refills, Soft Stop, 01/08/23 16:53:00 EDT, Tablet, [facility] #[id number], Partial fill upon patient request if the prescription is... Start Date: 01/08/23 Status: Ordered triamcinolone 0.025% topical ointment 1 application, Topically, 3 times a day, Apply to affected area, # 15 Gm, 1 Refills, Maintenance, 06/03/23 9:33:00 EST, Ointment, [facility] #[id number], Partial fill upon patient request if theprescription is for a schedule II opioid drug., 1 a... Start Date: 06/03/23 Status: Ordered Ventolin HFA 108 mcg/inh inhalation aerosol with adapter 2 puffs, Inhalation, Every 6 hours, # 18 Gm, 5 Refills, Maintenance, 05/25/23 6:11:00 EST, [facility] #[id number], 176.8, cm, 04/30/23 7:39:00 EST, Height, 127.4, [...] Team Personnel Name: Margarito Berger MD Position: [facility] Physician - Primary Care Member Role: PCP Address: Address: [address] [place] [id number] Name: Bhumika Castillo RN Position: [facility] SN RN Member Role: Primary Care Nurse Name: Jaja Arshad RN Position: [facility] RN Member Role: Primary Care Nurse Name: Ludwin Butcher RN Position: [facility] RN Member Role: Primary Care Nurse Care Team Related Persons Name: GARRETT FUENTES Address: home [address] [place] [address] Name: MARLO REINOSO Name: PT STS, NONE Name: EFFIE RICKETTS Name: RANDALL RICKETTS
--- OUTSIDE RECORDS SUMMARY | 2023-09-25 00:28 | XMS_ITS | Continuity of Care Document ---
Author Organization [facility] Address [address] [place] [address]- Care Team Providers Care Holistic Pulser Name Role Phone Jorge Luis FRAGA, Tra Dolan Primary Care Physician Encounter [facility] [place] Date(s): 08/05/19 - 08/15/19 [facility] [address] [place] [address]- [facility] Attending Physician: Lona Post Admitting Physician: AdmLona parisi Referring Physician: AdmtrLona Allergies, Adverse Reactions, Alerts No Known Medication Allergies Substance Reaction Severity Status Seafood Active Other Food Allergy tuna fish Active Immunizations Given and Recorded Vaccine Date Status Refusal Reason tetanus/diphtheria/pertussis, acel(Tdap) 01/23/11 Given Medications Chantix Starter Pack 0.5 mg-1 mg oral [...] 10/04/19 10:45:00 EDT, 08/05/19 10:45:00 EDT, Tablet, [facility] #[id number], 176.8,cm, 12/31/18 14:22:00 EDT, Height Start Date: [...] tablet, Refills 0, Tot. Refills 0, Acute 08/30/19 8:49:00 EDT, 08/02/19 8:49:00 EDT, Route to Pharmacy Electronically, [facility] #[id number], Partial fill upon patient request, 08/03/19, 17... Start Date: 08/02/19 Stop Date: 08/30/19 Status: Ordered triamcinolone 0.1% topical cream See Instructions, APPLY EXTERNALLY TO TO THE AFFECTED AREA THREE TIMES DAILY FOR 14 DAYS TO ACTIVE RASH ON ARMS OR LEGS, # 90 Gm, 1 Refills, Maintenance, 08/05/19 10:47:00 EDT, [facility] #[id number], APPLY EXTERNALLY TO TO THE AFFECTED AREA THRE... Start Date: 08/05/19 Status: Ordered Problem List Condition Effective Dates [...]
--- OUTSIDE RECORDS SUMMARY | 2023-09-25 00:28 | XMS_ITS | Continuity of Care Document ---
Author Organization [facility] Address [address] [place] [address]- Care Team Providers Care Cat Swamper Name Role Phone Margarito Berger MD Primary Care Physician Encounter [facility] [place] Date(s): 05/09/21 - 06/08/21 [facility] [address] [place] [address]- Allergies, Adverse Reactions, Alerts No Known Medication [...] each, 6 Refills, Maintenance, 01/08/21 12:55:00 EDT, Powder, [facility] #[id number], Partial fill upon patient request if the prescription is for a schedule II opioid drug., 2 puffs Inhalatio... Start Date: 01/08/21 Status: Ordered EpiPen 2-Michael 0.3 mg injectable kit = 0.3 mg, Intramuscular, Once, PRN severe allergic reaction, may repeat if necessary, # 2 each, 0 Refills, Soft Stop, 11/06/20 13:52:00 EDT, [facility] #[id number], 176.8, cm, 11/06/20 13:38:00 EDT, Height, 140.3, kg, 11/06/20 13:38:00 EDT, Dry W... Start Date: 11/06/20 Status: Ordered hydrOXYzine hydrochloride 50 mg oral tablet 1 tablet, By Mouth, 4 times a day, PRN NEEDED FOR ANXIETY, # 40 tablet, 0 Refills, [facility] #[id number], 176.8, cm, 05/18/21 14:17:00 EST, Height, 140.3, kg, 11/06/20 13:38:00 EDT, Dry Weight Start Date: 05/22/21 Status: Ordered ibuprofen 800 mg oral tablet 800 mg, 1, tablet, By Mouth, 3 times a day, PRN, with food or milk, # 90 tablet, Refills 2, Tot. Refills 2, Maintenance, as needed for pain, 04/10/21 11:47:00 EST, Route to Pharmacy Electronically, [facility] #[id number], 176.8, cm, 02/01/21 16:0... Start Date: 04/10/21 [...] 02/26/21 14:39:00 EDT, Route to Pharmacy Electronically, [facility] #[id number], Partial fill upon patientrequest if the prescription is for a schedule II op... Start Date: 02/26/21 Stop Date: 05/27/21 Status: Ordered losartan 50 mg oral tablet 1 tablet = 50 mg, By Mouth, Daily, for 30 days, # 30 tablet, 5 Refills, Physician Stop 10/13/21 14:50:00 EDT, 04/16/21 14:50:00 EST, [facility] #[id number], 176.8, cm, 02/01/21 16:07:00 EDT, Height, 140.3, kg, 11/06/20 13:38:00 EDT, Dry Weight Start Date: 04/16/21 Stop Date: 10/13/21 Status: Ordered metFORMIN 750 mg oral tablet, extended release 1 tablet, By Mouth, Daily, # 60 tablet, 5 Refills, [facility] #[id number], 176.8, cm, 02/02/2116:07:00 EDT, Height, 140.3, kg, 11/06/20 13:38:00 EDT, Dry Weight Start Date: 03/30/21 Status: Ordered oxyCODONE 5 mg oral tablet 5 mg, 1, tablet, By Mouth, Every 8 hours, PRN, Take only as needed, # 45 tablet, Refills 0, Tot. Refills 0, Maintenance, Pain , Moderate, 06/04/21 14:35:00 EST, Route to Pharmacy Electronically, [facility] #[id number], Partial fill upon patient r... Start Date: 06/04/21 Status: Ordered phentermine 30 mg oral capsule 1 capsule = 30 mg, By Mouth, Daily in AM, for 30 days, # 30 capsule, 0 Refills, Acute 06/17/21 14:53:00 EST, 05/18/21 14:53:00 EST, Caps[facility], Partial fill upon patient request if the prescription is for a schedule II opioid drug. Start Date: 05/18/21 Stop Date: 06/17/21 Status: Ordered triamcinolone 0.1% topical cream See Instructions, APPLY TOPICALLY TO THE AFFECTED AREA ON ARMS AND LEGS THREE TIMES DAILY. MIX WITH16 OUNCES OF EUCERIN CREAM, # 80 Gm, 0 Refills, [facility] #[id number], 14, APPLY TOPICALLY TOTHE AFFECTED AREA ON [...]
--- OUTSIDE RECORDS SUMMARY | 2023-09-25 00:28 | XMS_ITS | Continuity of Care Document ---
Author Organization [facility] Linda vashti Address [address] [place] [address] [address] [place] [address]- Care Team Providers Care Assistant Teacher Name Role Phone Margarito Berger MD Primary Care Physician [place] [facility] [place](s): 11/01/22 - 12/12/22 [facility] [address] [place] [address]- Attending Physician: Yohan Amezquita MD Referring Physician: [...] tablet, Refills 0, Tot. Refills 0, Maintenance, 12/04/22 20:21:00 EDT, Route to Pharmacy Electronically, [facility] #[id number], Partial fill upon patient request if the prescription is... Start Date: 12/04/22 Status: Ordered EpiPen 2-Michael 0.3 mg injectable kit = 0.3 mg, Intramuscular, Once, PRN severe allergic reaction, may repeat if necessary, # 2 each, 0 Refills, Soft Stop, 11/06/20 13:52:00 EDT, [facility] #[id number], 176.8, cm, 11/06/20 13:38:00 EDT, Height, 140.3, kg, 11/06/20 13:38:00 EDT, Dry W... Start Date: 11/06/20 Status: Ordered hydrOXYzine hydrochloride 50 mg oral tablet 1 tablet = 50 mg, By Mouth, 3 times a day, # 60 tablet, 1 Refills, Maintenance, 10/21/22 15:31:00 EDT, [facility] #[id number], 176.8, cm, 10/11/22 16:37:00 EDT, Height, 127.4, kg, 05/17/22 4:58:00 EST, Dry Weight Start Date: 10/21/22 Status: Ordered ibuprofen 800 mg oral tablet 1, tablet, By Mouth, 3 times a day, PRN, TAKE WITH FOOD OR MILK., # 90 tablet, Refills 5, Tot. Refills 5, Maintenance, NEEDED FOR PAIN(, 08/27/22 20:18:00 EDT, Route to Pharmacy Electronically, [facility] #[id number], 176.8, cm, 05/01/22 13:41... Start Date: 08/27/22 Status: Ordered losartan 50 mg oral tablet 1 tablet, By Mouth, Daily, # 90 tablet, 1 Refills, Maintenance, 11/28/22 21:33:00 EDT, [facility] #[id number], 176.8, cm, 11/05/22 11:22:00 EDT, Height, 127.4, kg, 05/17/22 4:58:00 EST, Dry Weight Start Date: 11/28/22 Status: Ordered mupirocin 2% topical ointment 1 application, Topically, 3 times a day, for 14 days, # 22 Gm, 3 Refills, Acute 01/20/23 16:10:00 EDT, 11/25/22 16:10:00 EDT, Ointment, [facility] #[id number], Partial fill upon patient request if the prescription is for a schedule II opioid drug... Start Date: 11/25/22 Stop Date: 01/20/23 Status: Ordered oxyCODONE 5 mg oral tablet 5 mg, 1, tablet, By Mouth, Every 8 hours, PRN, mass pat ok, ok for less. TAKE ONLY NEEDED, # 45 tablet, Refills 0, Tot. Refills 0, Maintenance, Pain , Moderate, 12/04/22 20:21:00 EDT, Route to Pharmacy Electronically, [facility] #[id number], P... Start Date: 12/04/22 Stop Date: 12/19/22 Status: Ordered ProAir HFA 90 mcg/inh inhalation aerosol with adapter 2, puffs, Inhalation, Every 6 hours, PRN, # 8.5 Gm, Refills 5, Tot. Refills 5, 04/09/22 15:33:00 EST, Route to Pharmacy Electronically, [id number], [facility] #[id number], 176.8, cm, 02/28/22 10:47:00 EDT, Height, 123.4,... Start Date: 04/09/22 Status: Ordered Ventolin HFA 108 mcg/inh inhalation aerosol with adapter See Instructions, INHALE 2 PUFFS BY MOUTH EVERY 6 HOURS NEEDED, # 18 Gm, 0 Refills, Maintenance,11/29/22 9:18:00 EDT, [facility] #[id number], 176.8, cm, 11/05/22 11:22:00 EDT, Height, 127.4,kg, [...] Team Personnel Name: Margarito Berger MD Position: [facility] Physician - Primary Care Member Role: PCP Address: Address: [address] [place] [address] Name: Bhumika Castillo RN Position: [facility] RN Member Role: Primary Care Nurse Name: Jaja Arshad RN Position: [facility] RN Member Role: Primary Care Nurse Name: Ludwin Butcher RN Position: [facility] RN Member Role: Primary Care Nurse Care Team Related Persons Name: GARRETT FUENTES Address: home [address] [place] [id number] Name: MARLO REINOSO Name: PT STS, NONE Name: EFFIE RICKETTS Name: RANDALL RICKETTS
--- OUTSIDE RECORDS SUMMARY | 2023-09-25 00:28 | XMS_ITS | Continuity of Care Document ---
Author Organization [facility] Address [address] [place] [address]- Care Team Providers Care Wood Lather Name Role Phone Margarito Berger MD Primary Care Physician Encounter [facility] [place] Date(s): 03/21/23 - 04/20/23 [facility] [address] [place] [address]- Allergies, Adverse Reactions, Alerts No Known Medication [...] tablet, Refills 0, Tot. Refills 0, Maintenance, 04/14/23 17:12:00 EST, Route to Pharmacy Electronically, [facility] #[id number], Partial fill upon patient request if the prescription is... Start Date: 04/14/23 Status: Ordered diclofenac sodium 75 mg oral delayed release tablet See Instructions, TAKE 1 TABLET BY MOUTH TWICE DAILY WITH FOOD DIRECTED, # 60 tablet, 1 Refills,03/11/23 16:29:00 EST, [facility] #[id number], 176.8, cm, 01/24/23 10:59:00 EDT, Height, 127.4, kg, 05/17/22 4:58:00 EST, Dry Weight Start Date: 03/11/23 Status: Ordered doxycycline hyclate 100 mg oral tablet See Instructions, TAKE 1 TABLET BY MOUTH TWICE DAILY FOR 14 DAYS, # 28 tablet, 0 Refills, Maintenance, 04/10/23 14:15:00 EST, [facility] #[id number], 176.8, cm, 01/24/23 10:59:00 EDT, Height, 127.4, kg, 05/17/22 4:58:00 EST, Dry Weight Start Date: 04/10/23 Status: Ordered EpiPen 2-Michael 0.3 mg injectable kit = 0.3 mg, Intramuscular, Once, PRN severe allergic reaction, may repeat if necessary, # 2 each, 0 Refills, Soft Stop, 01/24/23 12:05:00 EDT, [facility] #[id number], 176.8, cm, 01/24/23 10:59:00 EDT, Height, 127.4, kg, 05/17/22 4:58:00 EST, Dry We... Start Date: 01/24/23 Status: Ordered hydrOXYzine hydrochloride 50 mg oral tablet 1 tablet = 50 mg, By Mouth, 3 times a day, # 90 tablet, 1 Refills, Maintenance, 02/12/23 8:08:00 EDT, [facility] #[id number], 176.8, cm, 01/24/23 10:59:00 EDT, Height, 127.4, kg, 05/17/22 4:58:00 EST, Dry Weight Start Date: 02/12/23 Status: Ordered losartan 50 mg oral tablet 1 tablet, By Mouth, Daily, # 90 tablet, 1 Refills, Maintenance, 11/28/22 21:33:00 EDT, [facility] #[id number], 176.8, cm, 11/05/22 11:22:00 EDT, Height, 127.4, kg, 05/17/22 4:58:00 EST, Dry Weight Start Date: 11/28/22 Status: Ordered mupirocin 2% topical ointment See Instructions, APPLY TOPICALLY TO THE AFFECTED AREA THREE TIMES DAILY FOR 14 DAYS, # 22 Gm, 0 Refills, Maintenance, 03/27/23 8:33:00 EST, [facility] #[id number], 10, APPLY TOPICALLY TO THE AFFECTED AREA THREE TIMES DAILY FOR 14 DAYS, 176.8, cm... Start Date: 03/27/23 Status: Ordered oxyCODONE 5 mg oral tablet 5 mg, 1, tablet, By Mouth, Every 8 hours, PRN, mass pat ok, ok for less. TAKE ONLY NEEDED, # 45 tablet, Refills 0, Tot. Refills 0, Maintenance, Pain , Moderate, 04/09/23 7:37:00 EST, Route to Pharmacy Electronically, [facility] #[id number], Pa... Start Date: 04/09/23 Stop Date: 04/24/23 Status: Ordered predniSONE 20 mg oral tablet See Instructions, 2 tablets By Mouth Daily for 5 days and then 1 tablet by mouth daily for 5 days, # 15 tablet, 0 Refills, Soft Stop, 01/08/23 16:53:00 EDT, Tablet, [facility] #[id number], Partial fill upon patient request if the prescription is... Start Date: 01/08/23 Status: Ordered Ventolin HFA 108 mcg/inh inhalation aerosol with adapter 2 puffs, Inhalation, Every 6 hours, # 8.5 Gm, 6 Refills, Maintenance, 12/23/22 11:39:00 EDT, [facility] #[id number], 176.8, cm, 12/23/22 11:25:00 EDT, Height, 127.4, [...] Team Personnel Name: Margarito Berger MD Position: [facility] Physician - Primary Care Member Role: PCP Address: Address: [address] [place] [id number]- Name: Bhumika Castillo RN Position: [facility] SN RN Member Role: Primary Care Nurse Name: Jaja Arshad RN Position: [facility] RN Member Role: Primary Care Nurse Name: Ludwin Butcher RN Position: [facility] RN Member Role: Primary Care Nurse Care Team Related Persons Name: GARRETT FUENTES Address: home [address] [place] [address] Name: MARLO REINOSO Name: PT STS, NONE Name: EFFIE RICKETTS Name: RANDALL RICKETTS
--- OUTSIDE RECORDS SUMMARY | 2023-09-25 00:29 | XMS_ITS | Continuity of Care Document ---
Author Organization [facility] Address [address] [place] [address]- Care Team Providers Care Health Advisor Name Role Phone Margarito Berger MD Primary Care Physician [place] [facility] [place](s): 10/15/21 - 11/14/21 [facility] [address] [place] [address]- Allergies, Adverse Reactions, Alerts No Known Medication [...] 0 Refills, Soft Stop, 11/06/20 13:52:00 EDT, [facility] #[id number], 176.8, cm, 11/06/20 13:38:00 EDT, Height, 140.3, kg, 11/06/20 13:38:00 EDT, Dry W... Start Date: 11/06/20 Status: Ordered hydrOXYzine hydrochloride 50 mg oral tablet 1 tablet, By Mouth, 4 times a day, PRN NEEDED FOR ANXIETY, for 12 days, # 48 tablet, 0 Refills, Physician Stop 11/26/21 17:23:00 EDT, 11/14/21 17:23:00 EDT, [facility] #30, 176.8, cm, 11/05/21 15:43:00 EDT, Height, 123.4, kg, 10/12/21 15:... Start Date: 11/14/21 Stop Date: 11/26/21 Status: Ordered ibuprofen 800 mg oral tablet 1, tablet, By Mouth, 3 times a day, PRN, TAKE WITH FOOD OR MILK., # 90 tablet, Refills 1, NEEDEDFOR PAIN(, Route to Pharmacy Electronically, [facility] #[id number], 176.8, cm, 11/05/21 15:43:00 EDT, Height, 123.4, [...] Mouth, Daily, # 30 tablet, 5 Refills, [facility] #[id number], 176.8, cm, 11/05/2214:43:00 EDT, Height, 123.4, kg, 10/12/21 15:16:00 EDT, Dry Weight Start Date: 11/13/21 Status: Ordered metFORMIN 750 mg oral tablet, extended release 1 tablet, By Mouth, Daily, # 60 tablet, 5 Refills, [facility] #[id number], 176.8, cm, 02/02/2116:07:00 EDT, Height, 140.3, kg, 11/06/20 13:38:00 EDT, Dry Weight Start Date: 03/30/21 Status: Ordered oxyCODONE 5 mg oral tablet 5 mg, 1, tablet, By Mouth, Every 8 hours, PRN, mass pat ok, ok for less. Take only as needed., # 45tablet, Refills 0, Tot. Refills 0, Maintenance, Pain , Moderate, 10/31/21 14:49:00 EDT, Route to Pharmacy Electronically, [facility] #[id number],... Start Date: 10/31/21 Stop Date: 11/15/21 Status: Ordered oxyCODONE 5 mg oral tablet 5 mg, 1, tablet, By Mouth, Every 8 hours, PRN, mass pat ok, ok for less. Take only as needed., # 45tablet, Refills 0, Tot. Refills 0, Maintenance, Pain , Moderate, 09/28/21 17:08:00 EDT, Route to Pharmacy Electronically, [facility] #[id number],... Start Date: 09/28/21 Stop Date: 10/13/21 Status: Ordered phentermine 30 mg oral capsule 1 capsule = 30 mg, By Mouth, Daily in AM, for 30 days, # 30 capsule, 0 Refills, Acute 11/29/21 8:49:00 EDT, 10/30/21 8:49:00 EDT, Capsule, [facility] #[id number], Partial fill upon patient request if the prescription is for a schedule II opioid d... Start Date: 10/30/21 Stop Date: 11/29/21 Status: Ordered phentermine 30 mg oral capsule 1 capsule = 30 mg, By Mouth, Daily in AM, for 30 days, # 30 capsule, 0 Refills, Acute 11/30/21 14:53:00 EDT, 10/31/21 14:53:00 EDT, Capsule, [facility] #30, Partial fill upon patient request if the prescription is for a schedule II opioid dr... Start Date: 10/31/21 Stop Date: 11/30/21 Status: Ordered ProAir HFA 90 mcg/inh inhalation aerosol with adapter 2, puffs, Inhalation, Every 6 hours, PRN, # 8.5 Gm, Refills 5, Route to Pharmacy Electronically, [id number], [facility] #[id number], 176.8, cm, 10/12/21 15:16:00 EDT, Height, 123.4, kg, 10/12/21 15:16:00 EDT, Dry Weight Start Date: 11/05/21 Status: Ordered triamcinolone 0.1% topical cream See Instructions, APPLY TOPICALLY TO THE AFFECTED AREA ON ARMS AND LEGS THREE TIMES DAILY. MIX WITH16 OUNCES OF EUCERIN CREAM, # 80 Gm, 0 Refills, [facility] #[id number], 14, APPLY TOPICALLY TOTHE AFFECTED AREA ON [...]
--- OUTSIDE RECORDS SUMMARY | 2023-09-25 00:29 | XMS_ITS | Continuity of Care Document ---
Author Organization [facility] Address [address] [place] [address]- Care Team Providers Care Certified Orthotist Practice Manager Name Role Phone Margarito Berger MD Primary Care Physician [place] [facility] [place] [place]13/21 - 01/12/22 [facility] [address] [place] [address]- Allergies, Adverse Reactions, Alerts No Known Medication [...] 0 Refills, Soft Stop, 11/06/20 13:52:00 EDT, [facility] #[id number], 176.8, cm, 11/06/20 13:38:00 EDT, Height, 140.3, kg, 11/06/20 13:38:00 EDT, Dry W... Start Date: 11/06/20 Status: Ordered hydrOXYzine hydrochloride 50 mg oral tablet See Instructions, TAKE 1 TABLET BY MOUTH FOUR TIMES DAILY FOR 12 DAYS NEEDED FOR ANXIETY, # 48 tablet, 0 Refills, Maintenance, 01/04/22 15:54:00 EDT, [facility] #[id number], 176.8, cm, 12/14/21 16:29:00 EDT, Height, 123.4, kg, 10/12/21 15:16:0... Start Date: 01/04/22 Status: Ordered ibuprofen 800 mg oral tablet 1, tablet, By Mouth, 3 times a day, PRN, TAKE WITH FOOD OR MILK., # 90 tablet, Refills 5, Maintenance, NEEDED FOR PAIN(, 01/04/22 10:09:00 EDT, Route to Pharmacy Electronically, [facility] #[id number], 176.8, cm, 12/14/21 16:29:00 EDT, Height,... Start [...] Mouth, Daily, # 30 tablet, 5 Refills, [facility] #[id number], 176.8, cm, 11/05/2214:43:00 EDT, Height, 123.4, kg, 10/12/21 15:16:00 EDT, Dry Weight Start Date: 11/13/21 Status: Ordered magnesium oxide 250 mg oral tablet See Instructions, TAKE 1 TABLET BY MOUTH DAILY AT BEDTIME FOR 14 DAYS, # 14 tablet, 0 Refills, Maintenance, 01/04/22 15:54:00 EDT, [facility] #[id number], 176.8, cm, 12/14/21 16:29:00 EDT, Height, 123.4, kg, 10/12/21 15:16:00 EDT, Dry Weight Start Date: 01/04/22 Status: Ordered metFORMIN 750 mg oral tablet, extended release 1 tablet, By Mouth, Daily, # 60 tablet, 5 Refills, [facility] #42293, 176.8, cm, 02/02/2116:07:00 EDT, Height, 140.3, kg, 11/06/20 13:38:00 EDT, Dry Weight Start Date: 03/30/21 Status: Ordered oxyCODONE 5 mg oral tablet 5 mg, 1, tablet, By Mouth, Every 8 hours, PRN, for 30 days, mass pat ok, ok for less. Take only as needed., # 45 tablet, Refills 0, Tot. Refills 0, Hard Stop 01/13/22 16:47:00 EDT, Pain , Moderate, 12/14/21 16:47:00 EDT, Route to Pharmacy Electronical... Start Date: 12/14/21 Stop Date: 01/13/22 Status: Ordered oxyCODONE 5 mg oral tablet 5 mg, 1, tablet, By Mouth, Every 8 hours, PRN, mass pat ok, ok for less. Take only as needed., # 45tablet, Refills 0, Tot. Refills 0, Maintenance, Pain , Moderate, 09/28/21 17:08:00 EDT, Route to Pharmacy Electronically, [facility] #[id number],... Start Date: 09/28/21 Stop Date: 10/13/21 Status: Ordered oxyCODONE 5 mg oral tablet 5 mg, 1, tablet, By Mouth, Every 8 hours, PRN, mass pat ok, ok for less. Take only as needed., # 45tablet, Refills 0, Tot. Refills 0, Maintenance, Pain , Moderate, 12/28/21 12:33:00 EDT, Route to Pharmacy Electronically, [facility] #[id number],... Start Date: 12/28/21 Stop Date: 01/27/22 Status: Ordered phentermine 30 mg oral capsule 1 capsule = 30 mg, By Mouth, Daily in AM, for 30 days, # 30 capsule, 0 Refills, Acute 02/09/22 11:53:00 EDT, 01/10/22 11:53:00 EDT, Capsule, [facility] #30, Partial fill upon patient request; Sent to pharmacy for Most Cost- Effective measure,... Start Date: 01/10/22 Stop Date: 02/09/22 Status: Ordered ProAir HFA 90 mcg/inh inhalation aerosol with adapter 2, puffs, Inhalation, Every 6 hours, PRN, # 8.5 Gm, Refills 5, Route to Pharmacy Electronically, [id number], [facility] #[id number], 176.8, cm, 10/12/21 15:16:00 EDT, Height, 123.4, kg, 10/12/21 15:16:00 EDT, Dry Weight Start Date: 11/05/21 Status: Ordered triamcinolone 0.1% topical cream See Instructions, APPLY TOPICALLY TO THE AFFECTED AREA ON ARMS AND LEGS THREE TIMES DAILY. MIX WITH16 OUNCES OF EUCERIN CREAM, # 80 Gm, 0 Refills, [facility] #[id number], 14, APPLY TOPICALLY TOTHE AFFECTED AREA ON [...] per day: 7; entered on: 12/31/18 Sex Care Team Personnel Name: Margarito Berger MD Address: [address] [place] [address]
--- OUTSIDE RECORDS SUMMARY | 2023-09-25 00:29 | XMS_ITS | Continuity of Care Document ---
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 Start Date: 01/23/23 Status: Ordered diclofenac sodium 75 mg oral delayed release tablet See Instructions, TAKE 1 TABLET BY MOUTH TWICE DAILY WITH FOOD DIRECTED, # 60 tablet, 0 Refills,01/29/23 13:09:00 EDT, [facility] #[id number], 176.8, cm, 01/24/23 10:59:00 EDT, Height, 127.4, kg, 05/17/22 4:58:00 EST, Dry Weight Start Date: 01/29/23 Status: Ordered EpiPen 2-Michael 0.3 mg injectable kit = 0.3 mg, Intramuscular, Once, PRN severe allergic reaction, may repeat if necessary, # 2 each, 0 Refills, Soft Stop, 01/24/23 12:05:00 EDT, [facility] #[id number], 176.8, cm, 01/24/23 10:59:00 EDT, Height, 127.4, kg, 05/17/22 4:58:00 EST, Dry We... Start Date: 01/24/23 Status: Ordered hydrOXYzine hydrochloride 50 mg oral tablet 1 tablet = 50 mg, By Mouth, 3 times a day, # 90 tablet, 1 Refills, Maintenance, 02/12/23 8:08:00 EDT, [facility] #[id number], 176.8, cm, 01/24/23 10:59:00 EDT, Height, 127.4, kg, 05/17/22 4:58:00 EST, Dry Weight Start Date: 02/12/23 Status: Ordered losartan 50 mg oral tablet 1 tablet, By Mouth, Daily, # 90 tablet, 1 Refills, Maintenance, 11/28/22 21:33:00 EDT, [facility] #15574, 176.8, cm, 11/05/22 11:22:00 EDT, Height, 127.4, kg, 05/17/22 4:58:00 EST, Dry Weight Start Date: 11/28/22 Status: Ordered mupirocin 2% topical ointment See Instructions, APPLY TOPICALLY TO THE AFFECTED AREA THREE TIMES DAILY FOR 14 DAYS, # 22 Gm, 0 Refills, Maintenance, 02/19/23 12:57:00 EDT, [facility] #[id number], 10, APPLY TOPICALLY TO THE AFFECTED AREA THREE TIMES DAILY FOR 14 DAYS, 176.8, c... Start Date: 02/19/23 Status: Ordered oxyCODONE 5 mg oral tablet 5 mg, 1, tablet, By Mouth, Every 8 hours, PRN, mass pat ok, ok for less. TAKE ONLY NEEDED, # 45 tablet, Refills 0, Tot. Refills 0, Maintenance, Pain , Moderate, 02/11/23 9:57:00 EDT, Route to Pharmacy Electronically, [facility] #[id number], Pa... Start Date: 02/11/23 Stop Date: 02/26/23 Status: Ordered predniSONE 20 mg oral tablet See Instructions, 2 tablets By Mouth Daily for 5 days and then 1 tablet by mouth daily for 5 days, # 15 tablet, 0 Refills, Soft Stop, 01/08/23 16:53:00 EDT, Tablet, [facility] #31477, Partial fill upon patient request if the prescription is... Start Date: 01/08/23 Status: Ordered triamcinolone 0.025% topical ointment 1 application, Topically, 2 times a day, for 14 days, # 60 Gm, 3 Refills, Acute 03/27/23 12:53:00 EST, 01/30/23 12:53:00 EDT, Ointment, [facility] #44056, Partial fill upon patient request if the prescription is for a schedule II opioid drug... Start Date: 01/30/23 Stop Date: 03/27/23 Status: Ordered Ventolin HFA 108 mcg/inh inhalation aerosol with adapter 2 puffs, Inhalation, Every 6 hours, # 8.5 Gm, 6 Refills, Maintenance, 12/23/22 11:39:00 EDT, [facility] #[id number], 176.8, cm, 12/23/22 11:25:00 EDT, Height, 127.4, [...] per day: 7; entered on: 12/31/18 Sex Cardiology * Milton Hamilton: PERFORM Event Display: Cardiovascular Results Scanned Authored Date: Laboratory * Tra Kang MD D: REVIEW Event Display: Laboratory Result Scanned Authored Date: * Event Display: Laboratory Result Scanned Authored Date: * Event Display: Laboratory Result Scanned Authored Date: Radiology * Lina Ku: PERFORM Event Display: Radiology Results Scanned Authored Date: [id number] * Elmira Lina: PERFORM Event Display: Radiology Results Scanned Authored Date: [id number] Patient Care team information Care Team Personnel Name: Margarito Berger MD Position: [facility] Physician - Primary Care Member Role: PCP Address: Address: [address] [place] [address] Name: Bhumika Castillo RN Position: [facility] SN RN Member Role: Primary Care Nurse Name: Jaja Arshad RN Position: [facility] RN Member Role: Primary Care Nurse Name: Ludwin Butcher RN Position: [facility] RN Member Role: Primary Care Nurse Care Team Related Persons Name: GARRETT FUENTES Address: home [address] [place] [id number] Name: MARLO REINOSO Name: PT STS, NONE Name: EFFIE RICKETTS Name: RANDALL RICKETTS
--- OUTSIDE RECORDS SUMMARY | 2023-09-25 00:29 | XMS_ITS | Continuity of Care Document ---
Author Organization [facility] Address [address] [place] [address]- Care Team Providers Care Ediphone Operator Name Role Phone Margarito Berger MD Primary Care Physician [place] [facility] [place] 07/31/23 [facility] [address] [place] [address]- Allergies, Adverse Reactions, Alerts No Known Medication [...] tablet, 0 Refills, Maintenance, 05/28/23 8:20:00 EST, [facility] #[id number], 176.8, cm, 04/30/23 7:39:00 EST, Height, 127.4, kg, 05/17/22 4:58:00 EST, Dry Weight Start Date: 05/28/23 Stop Date: 06/07/23 Status: Ordered cyclobenzaprine 10 mg oral tablet 1, tablet, By Mouth, 3 times a day, PRN, # 60 tablet, Refills 0, Tot. Refills 0, Maintenance, NEEDED FOR SPASMS, 07/24/23 17:31:00 EDT, Route to Pharmacy Electronically, [facility] #[id number], 176.8, cm, 04/30/23 7:39:00 EST, Height, 127.4, k... Start Date: 07/24/23 Status: Ordered diclofenac sodium 75 mg oral delayed release tablet 1 tablet, By Mouth, 2 times a day with meals, DIRECTED., # 60 tablet, 5 Refills, Maintenance, 07/01/23 20:55:00 EST, [facility] #[id number], 176.8, cm, 04/30/23 7:39:00 EST, Height, 127.4, kg, 05/17/22 4:58:00 EST, Dry Weight Start Date: 07/01/23 Status: Ordered doxycycline hyclate 100 mg oral tablet 1 tablet, By Mouth, 2 times a day, # 28 tablet, 0 Refills, Maintenance, 07/16/23 17:07:00 EDT, [facility] #[id number], 176.8, cm, 04/30/23 7:39:00 EST, Height, 127.4, kg, 05/17/22 4:58:00 EST, Dry Weight Start Date: 07/16/23 Stop Date: 07/30/23 Status: Ordered EpiPen 2-Michael 0.3 mg injectable kit = 0.3 mg, Intramuscular, Once, PRN severe allergic reaction, may repeat if necessary, # 2 each, 0 Refills, Soft Stop, 01/24/23 12:05:00 EDT, [facility] #74754, 176.8, cm, 01/24/23 10:59:00 EDT, Height, 127.4, kg, 05/17/22 4:58:00 EST, Dry We... Start Date: 01/24/23 Status: Ordered hydrOXYzine hydrochloride 50 mg oral tablet 1 tablet = 50 mg, By Mouth, 3 times a day, PRN as needed for itching, # 90 tablet, 1 Refills, Maintenance, 06/18/23 13:07:00 EST, [facility] #[id number], 176.8, cm, 04/30/23 7:39:00 EST, Height,127.4, kg, 05/17/22 4:58:00 EST, Dry Weight Start Date: 06/18/23 Status: Ordered hydrOXYzine hydrochloride 50 mg oral tablet 1 tablet = 50 mg, By Mouth, 3 times a day, # 90 tablet, 1 Refills, Maintenance, 04/25/23 11:23:00 EST, [facility] #[id number], 176.8, cm, 01/24/23 10:59:00 EDT, Height, 127.4, kg, 05/17/22 4:58:00 EST, Dry Weight Start Date: 04/25/23 Status: Ordered losartan 50 mg oral tablet 1 tablet, By Mouth, Daily, # 90 tablet, 1 Refills, Maintenance, 06/05/23 18:32:00 EST, [facility] #[id number], 176.8, cm, 04/30/23 7:39:00 EST, Height, 127.4, kg, 05/17/22 4:58:00 EST, Dry Weight Start Date: 06/05/23 Status: Ordered metFORMIN 750 mg oral tablet, extended release 1 tablet = 750 mg, By Mouth, Daily, # 90 tablet, 1 Refills, Maintenance, 05/19/23 11:12:00 EST, ER Tablet, [facility] #[id number], Partial fill upon patient request if the prescription is for a schedule II opioid drug., 176.8, cm, 04/30/23 7:39:0... Start Date: 05/19/23 Status: Ordered mupirocin 2% topical ointment See Instructions, APPLY TOPICALLY TO THE AFFECTED AREA THREE TIMES DAILY FOR 14 DAYS, # 22 Gm, 0 Refills, Maintenance, 06/03/23 13:22:00 EST, [facility] #[id number], APPLY TOPICALLY TO THE AFFECTED AREA THREE [...] 07/21/23 13:50:00 EDT, Route to Pharmacy Electronically, [facility]... Start Date: 07/21/23 Stop Date: 08/05/23 Status: Ordered predniSONE 20 mg oral tablet See Instructions, 2 tablets By Mouth Daily for 5 days and then 1 tablet by mouth daily for 5 days, # 15 tablet, 0 Refills, Soft Stop, 01/08/23 16:53:00 EDT, Tablet, [facility] #[id number], Partial fill upon patient request if the prescription is... Start Date: 01/08/23 Status: Ordered triamcinolone 0.025% topical ointment 1 application, Topically, 3 times a day, Apply to affected area, # 15 Gm, 1 Refills, Maintenance, 06/03/23 9:33:00 EST, Ointment, [facility] #[id number], Partial fill upon patient request if theprescription is for a schedule II opioid drug., 1 a... Start Date: 06/03/23 Status: Ordered Ventolin HFA 108 mcg/inh inhalation aerosol with adapter 2 puffs, Inhalation, Every 6 hours, # 18 Gm, 5 Refills, Maintenance, 05/25/23 6:11:00 EST, [facility] #[id number], 176.8, cm, 04/30/23 7:39:00 EST, Height, 127.4, [...] Team Personnel Name: Margarito Berger MD Position: [facility] Physician - Primary Care Member Role: PCP Address: Address: [address] [place] [id number] Name: Bhumika Castillo RN Position: [facility] RN Member Role: Primary Care Nurse Name: Jaja Arshad RN Position: S RN Member Role: Primary Care Nurse Name: Ludwin Butcher RN Position: S RN Member Role: Primary Care Nurse Care Team Related Persons Name: GARRETT FUENTES Address: home [address] [place] [address] Name: MARLO REINOSO Name: PT STS, NONE Name: EFFIE RICKETTS Name: RANDALL RICKETTS
--- OUTSIDE RECORDS SUMMARY | 2023-09-25 00:29 | XMS_ITS | Continuity of Care Document ---
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 Scrubber Name Role Phone Margarito Berger MD [id number]23 [facility] [address] [address]- Attending Physician: Margarito Berger MD Admitting Physician: Margarito Berger MD Referring Physician: Margarito Berger MD Allergies, [...] tablet, 0 Refills, Maintenance, 05/28/23 8:20:00 EST, [facility] #[id number], 176.8, cm, 04/30/23 7:39:00 EST, Height, 127.4, kg, 05/17/22 4:58:00 EST, Dry Weight Start Date: 05/28/23 Stop Date: 06/07/23 Status: Ordered cyclobenzaprine 10 mg oral tablet 1, tablet, By Mouth, 3 times a day, PRN, # 60 tablet, Refills 1, Maintenance, NEEDED FOR SPASMS,05/28/23 8:20:00 EST, Route to Pharmacy Electronically, [facility][id number], 176.8, cm, 04/30/23 7:39:00 EST, Height, 127.4, kg, 05/17/22 4:58:... Start Date: 05/28/23 Status: Ordered diclofenac sodium 75 mg oral delayed release tablet 1 tablet, By Mouth, 2 times a day with meals, DIRECTED., # 60 tablet, 1 Refills, Maintenance, 05/04/23 6:22:00 EST, [facility] #[id number], 176.8, cm, 04/30/23 7:39:00 EST, Height, 127.4, kg,05/17/22 4:58:00 EST, Dry Weight Start Date: 05/04/23 Status: Ordered doxycycline hyclate 100 mg oral tablet 1 tablet, By Mouth, 2 times a day, # 28 tablet, 0 Refills, Maintenance, 05/28/23 8:20:00 EST, [facility] #[id number], 176.8, cm, 04/30/23 7:39:00 EST, Height, 127.4, kg, 05/17/22 4:58:00 EST, Dry Weight Start Date: 05/28/23 Stop Date: 06/11/23 Status: Ordered EpiPen 2-Michael 0.3 mg injectable kit = 0.3 mg, Intramuscular, Once, PRN severe allergic reaction, may repeat if necessary, # 2 each, 0 Refills, Soft Stop, 01/24/23 12:05:00 EDT, [facility] #[id number], 176.8, cm, 01/24/23 10:59:00 EDT, Height, 127.4, kg, 05/17/22 4:58:00 EST, Dry We... Start Date: 01/24/23 Status: Ordered hydrOXYzine hydrochloride 50 mg oral tablet 1 tablet = 50 mg, By Mouth, 3 times a day, # 90 tablet, 1 Refills, Maintenance, 04/25/23 11:23:00 EST, [facility] #[id number], 176.8, cm, 01/24/23 10:59:00 EDT, Height, 127.4, kg, 05/17/22 4:58:00 EST, Dry Weight Start Date: 04/25/23 Status: Ordered hydrOXYzine hydrochloride 50 mg oral tablet See Instructions, TAKE 1 TABLET BY MOUTH THREE TIMES DAILY, # 90 tablet, 0 Refills, Maintenance, 04/25/23 14:10:00 EST, [facility] #[id number], 176.8, cm, 01/24/23 10:59:00 EDT, Height, 127.4, kg, 05/17/22 4:58:00 EST, Dry Weight Start Date: 04/25/23 Status: Ordered losartan 50 mg oral tablet 1 tablet, By Mouth, Daily, # 90 tablet, 1 Refills, Maintenance, 06/05/23 18:32:00 EST, [facility] #[id number], 176.8, cm, 04/30/23 7:39:00 EST, Height, 127.4, kg, 05/17/22 4:58:00 EST, Dry Weight Start Date: 06/05/23 Status: Ordered metFORMIN 750 mg oral tablet, extended release 1 tablet = 750 mg, By Mouth, Daily, # 90 tablet, 1 Refills, Maintenance, 05/19/23 11:12:00 EST, ER Tablet, [facility] #[id number], Partial fill upon patient request if the prescription is for a schedule II opioid drug., 176.8, cm, 04/30/23 7:39:0... Start Date: 05/19/23 Status: Ordered mupirocin 2% topical ointment See Instructions, APPLY TOPICALLY TO THE AFFECTED AREA THREE TIMES DAILY FOR 14 DAYS, # 22 Gm, 0 Refills, Maintenance, 06/03/23 13:22:00 EST, [facility] #[id number], APPLY TOPICALLY TO THE AFFECTED AREA THREE [...] 06/03/23 13:22:00 EST, Route to Pharmacy Electronically, [facility]... Start Date: 06/03/23 Stop Date: 06/18/23 Status: Ordered predniSONE 20 mg oral tablet See Instructions, 2 tablets By Mouth Daily for 5 days and then 1 tablet by mouth daily for 5 days, # 15 tablet, 0 Refills, Soft Stop, 01/08/23 16:53:00 EDT, Tablet, [facility] #[id number], Partial fill upon patient request if the prescription is... Start Date: 01/08/23 Status: Ordered triamcinolone 0.025% topical ointment 1 application, Topically, 3 times a day, Apply to affected area, # 15 Gm, 1 Refills, Maintenance, 06/03/23 9:33:00 EST, Ointment, [facility] #[id number], Partial fill upon patient request if theprescription is for a schedule II opioid drug., 1 a... Start Date: 06/03/23 Status: Ordered Ventolin HFA 108 mcg/inh inhalation aerosol with adapter 2 puffs, Inhalation, Every 6 hours, # 18 Gm, 5 Refills, Maintenance, 05/25/23 6:11:00 EST, [facility] #[id number], 176.8, cm, 04/30/23 7:39:00 EST, Height, 127.4, [...] Team Personnel Name: Margarito Berger MD Position: [facility] Physician - Primary Care Member Role: PCP Address: Address: [address] [place] [id number] Name: Bhumika Castillo RN Position: [facility] RN Member Role: Primary Care Nurse Name: Jaja Arshad RN Position: S RN Member Role: Primary Care Nurse Name: Ludwin Butcher RN Position: S RN Member Role: Primary Care Nurse Care Team Related Persons Name: GARRETT FUENTES Address: home [address] [place] [address] Name: MARLO REINOSO Name: PT STS, NONE Name: EFFIE RICKETTS Name: RANDALL RICKETTS
--- OUTSIDE RECORDS SUMMARY | 2023-09-25 00:29 | XMS_ITS | Continuity of Care Document ---
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 Name Role Phone Margarito Berger MD Primary Care Physician Encounter [facility] [place] Date(s): 08/06/21 - 08/13/21 [facility] [address] [place] [address]- Encounter Diagnosis Morbid obesity(Discharge Diagnosis) - 08/06/21 Prediabetes(Discharge Diagnosis) - 08/06/21 Leg cramping(Discharge Diagnosis) - 08/06/21 Left wrist pain(Discharge Diagnosis) - 08/06/21 Attending Physician: Margarito Berger MD Allergies, Adverse [...] 0 Refills, Soft Stop, 11/06/20 13:52:00 EDT, [facility] #[id number], 176.8, cm, 11/06/20 13:38:00 EDT, Height, 140.3, kg, 11/06/20 13:38:00 EDT, Dry W... Start Date: 11/06/20 Status: Ordered ibuprofen 800 mg oral tablet 1, tablet, By Mouth, 3 times a day, PRN, TAKE WITH FOOD OR MILK, # 90 tablet, Refills 0, NEEDED FOR PAIN, Route to Pharmacy Electronically, [facility] #[id number], 176.8, cm, 06/21/21 15:26:00 EST, Height, 140.3, kg, 11/06/20 13:38:00 EDT, Dry... Start Date: 07/23/21 Status: Ordered Inhaler Spacer Inhaler Spacer , [...] 02/26/21 14:39:00 EDT, Route to Pharmacy Electronically, [facility] #[id number], Partial fill upon patientrequest if the prescription is for a schedule II op... Start Date: 02/26/21 Stop Date: 05/27/21 Status: Ordered losartan 50 mg oral tablet 1 tablet = 50 mg, By Mouth, Daily, for 30 days, # 30 tablet, 5 Refills, Physician Stop 10/13/21 14:50:00 EDT, 04/16/21 14:50:00 EST, [facility] #[id number], 176.8, cm, 02/01/21 16:07:00 EDT, Height, 140.3, kg, 11/06/20 13:38:00 EDT, Dry Weight Start Date: 04/16/21 Stop Date: 10/13/21 Status: Ordered magnesium oxide 250 mg oral tablet 1 tablet = 250 mg, By Mouth, Daily at bedtime, for 14 days, # 14 tablet, 0 Refills, Acute 08/20/21 15:31:00 EDT, 08/06/21 15:31:00 EDT, Tablet, [facility] #[id number], Partial fill upon patient request if the prescription is for a schedule II opi... Start Date: 08/06/21 Stop Date: 08/20/21 Status: Ordered metFORMIN 750 mg oral tablet, extended release 1 tablet, By Mouth, Daily, # 60 tablet, 5 Refills, [facility] #[id number], 176.8, cm, 02/02/2116:07:00 EDT, Height, 140.3, kg, 11/06/20 13:38:00 EDT, Dry Weight Start Date: 03/30/21 Status: Ordered oxyCODONE 5 mg oral tablet 5 mg, 1, tablet, By Mouth, Every 8 hours, PRN, Take only as needed, # 45 tablet, Refills 0, Tot. Refills 0, Maintenance, Pain , Moderate, 08/02/21 17:20:00 EDT, Route to Pharmacy Electronically, [facility] #[id number], Partial fill upon patient r... Start Date: 08/02/21 Stop Date: 08/17/21 Status: Ordered phentermine 30 mg oral capsule 1 capsule = 30 mg, By Mouth, Daily in AM, for 30 days, # 30 capsule, 0 Refills, Acute 08/23/21 12:15:00 EDT, 07/24/21 12:15:00 EDT, Capsule, [facility] #30, Partial fill upon patient request if the prescription is for a schedule II opioid drJte Start Date: 07/24/21 Stop Date: 08/23/21 Status: Ordered ProAir HFA 90 mcg/inh inhalation aerosol with adapter 2, puffs, Inhalation, Every 6 hours, PRN, # 8.5 Gm, Refills 5, Route to Pharmacy Electronically, [id number], [facility] #[id number], 176.8, cm, 05/18/21 14:17:00 EST, Height, 140.3, kg, 11/06/20 13:38:00 EDT, Dry Weight Start Date: 06/13/21 Status: Ordered triamcinolone 0.1% topical cream See Instructions, APPLY TOPICALLY TO THE AFFECTED AREA ON ARMS AND LEGS THREE TIMES DAILY. MIX WITH16 OUNCES OF EUCERIN CREAM, # 80 Gm, 0 Refills, [facility] #[id number], 14, APPLY TOPICALLY TOTHE AFFECTED AREA ON [...] Diagnosis Diagnosis Type Effective Dates Health Status Cl inical Service Informant Morbid obesity Discharge Diagnosis 08/06/21 Prediabetes Discharge Diagnosis 08/06/21 Leg cramping Discharge Diagnosis 08/06/21 Left wrist pain Discharge Diagnosis 08/06/21 Vital Signs Most recent to oldest [Reference Range]: 1 Height 176.8 cm (08/06/21 3:06 PM) Weight 137 kg (08/06/21 3:06 PM) Oxygen Saturation [94-100 %] 98 % (08/06/21 3:06 PM) Pulse Rate [55-90 bpm] 110 bpm *H* (08/06/21 3:06 PM) Body Mass Index [18.5-24.99] 43.83 *>HHI* (08/06/21 3:06 PM) Blood Pressure [90-138/55-84 mm Hg] 122/ 80mm Hg (08/06/21 3:06 PM) Blood pressure sites Arm, left (08/06/21 3:06 PM) Weight Obtained Via Standing scale (08/06/21 3:06 PM) Social History Social History Type Response Smoking Status 5-9 cigarettes (betw eenara 1/4 to 1/2 pack)/day in last 30 days; Tobacco use times per day: 7; entered on: 12/31/18 Sex
--- OUTSIDE RECORDS SUMMARY | 2023-09-25 00:29 | XMS_ITS | Continuity of Care Document ---
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 Start Date: 05/18/22 Status: Ordered Bactrim DS 800 mg-160 mg oral tablet 1 tablet, By Mouth, 2 times a day, for 10 days, # 20 tablet, 0 Refills, Acute 11/11/22 16:30:00 EDT, 11/01/22 16:30:00 EDT, Tablet, [facility] #[id number], Partial fill upon patient request if the prescription is for a schedule II opioid drug., 1... Start Date: 11/01/22 Stop Date: 11/11/22 Status: Ordered celecoxib 200 mg oral capsule [...] 10/21/22 15:31:00 EDT, Route to Pharmacy Electronically, [facility] #[id number], Partial fill upon patient request if the prescription is... Start Date: 10/21/22 Status: Ordered EpiPen 2-Michael 0.3 mg injectable kit = 0.3 mg, Intramuscular, Once, PRN severe allergic reaction, may repeat if necessary, # 2 each, 0 Refills, Soft Stop, 11/06/20 13:52:00 EDT, [facility] #[id number], 176.8, cm, 11/06/20 13:38:00 EDT, Height, 140.3, kg, 11/06/20 13:38:00 EDT, Dry W... Start Date: 11/06/20 Status: Ordered hydrOXYzine hydrochloride 50 mg oral tablet 1 tablet = 50 mg, By Mouth, 3 times a day, # 60 tablet, 1 Refills, Maintenance, 10/21/22 15:31:00 EDT, [facility] #[id number], 176.8, cm, 10/11/22 16:37:00 EDT, Height, 127.4, kg, 05/17/22 4:58:00 EST, Dry Weight Start Date: 10/21/22 Status: Ordered ibuprofen 800 mg oral tablet 1, tablet, By Mouth, 3 times a day, PRN, TAKE WITH FOOD OR MILK., # 90 tablet, Refills 5, Tot. Refills 5, Maintenance, NEEDED FOR PAIN(, 08/27/22 20:18:00 EDT, Route to Pharmacy Electronically, [facility] #[id number], 176.8, cm, 05/01/22 13:41... Start Date: 08/27/22 Status: Ordered losartan 50 mg oral tablet 1 tablet, By Mouth, Daily, # 90 tablet, 1 Refills, Maintenance, 06/03/22 11:27:00 EST, [facility] #[id number], 176.8, cm, 05/01/22 13:41:00 EST, Height, 127.4, kg, 05/17/22 4:58:00 EST, Dry Weight Start Date: 06/03/22 Stop Date: 11/30/22 Status: Ordered mupirocin 2% topical ointment 1 application, Topically, 3 times a day, for 14 days, # 22 Gm, 0 Refills, Acute 11/15/22 16:29:00 EDT, 11/01/22 16:29:00 EDT, Ointment, [facility] #[id number], Partial fill upon patient request if the [...] 11/04/22 16:00:00 EDT, Route to Pharmacy Electronically, [facility] #[id number], P... Start Date: 11/04/22 Stop Date: 11/19/22 Status: Ordered ProAir HFA 90 mcg/inh inhalation aerosol with adapter 2, puffs, Inhalation, Every 6 hours, PRN, # 8.5 Gm, Refills 5, Tot. Refills 5, 04/09/22 15:33:00 EST, Route to Pharmacy Electronically, [id number], [facility] #[id number], 176.8, cm, 02/28/22 10:47:00 EDT, Height, 123.4,... Start Date: 04/09/22 Status: Ordered Problem List Condition Confirmation Course Effective Dates Status Health St atus Informant Adjustment disorder Confirmed Active Chronic knee pain Confirmed Active Chronic low back pain Confirmed Active Daytime sleepiness Confirmed Active Hypertension Confirmed Active Morbid obesity Confirmed Active SKIP - Obstructive sleep apnea Confirmed Active Prediabetes Confirmed Active Severe obesity Confirmed Active Diagnosis Diagnosis Type Effective Dates Health Status Cl inical Service Informant Open wound of nose Discharge Diagnosis 11/01/22 Vital Signs Most recent to oldest [Reference Range]: 1 Height 176.8 cm (11/01/22 3:54 PM) Oxygen Saturation [94-100 %] 97 % (11/01/22 3:54 PM) Pulse Rate [55-90 bpm] 97 bpm *H* (11/01/22 3:54 PM) Blood Pressure [90-138/55-84 mm Hg] 135/ 89mm Hg (11/01/22 3:54 PM) Respiratory Rate [16-30 br/min] 18 br/mi n (11/01/22 3:54 PM) Temperature [96.8-100.4 DegF] 98.3 DegF (11/01/22 3:54 PM) Mode of Delivery (Oxygen) Room air (11/01/22 3:54 PM) Blood pressure sites Arm, right (11/01/22 3:54 PM) Temperature Route Temporal (11/01/22 3:54 PM) Social History Social History Type Response Smoking Status 5-9 cigarettes (betw een 1/4 to 1/2 pack)/day in last 30 days; Tobacco use times per day: 7; entered on: 12/31/18 Sex Patient Care team information Care Team Personnel Name: Margarito Berger MD Position: [facility] Physician - Primary Care Member Role: PCP Address: Address: [address] [place] [id number] Name: Bhumika Castillo RN Position: [facility] RN Member Role: Primary Care Nurse Name: Jaja Arshad RN Position: [facility] RN Member Role: Primary Care Nurse Name: Ludwin Butcher RN Position: S RN Member Role: Primary Care Nurse Care Team Related Persons Name: GARRETT FUENTES Address: home [address] [place] [address] Name: MARLO REINOSO Name: PT STS, NONE Name: EFFIE RICKETTS Name: RANDALL RICKETTS
--- OUTSIDE RECORDS SUMMARY | 2023-09-25 00:29 | XMS_ITS | Continuity of Care Document ---
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 Start Date: 10/21/22 Status: Ordered EpiPen 2-Michael 0.3 mg injectable kit = 0.3 mg, Intramuscular, Once, PRN severe allergic reaction, may repeat if necessary, # 2 each, 0 Refills, Soft Stop, 11/06/20 13:52:00 EDT, [facility] #[id number], 176.8, cm, 11/06/20 13:38:00 EDT, Height, 140.3, kg, 11/06/20 13:38:00 EDT, Dry W... Start Date: 11/06/20 Status: Ordered hydrOXYzine hydrochloride 50 mg oral tablet 1 tablet = 50 mg, By Mouth, 3 times a day, # 60 tablet, 1 Refills, Maintenance, 10/21/22 15:31:00 EDT, [facility] #[id number], 176.8, cm, 10/11/22 16:37:00 EDT, Height, 127.4, kg, 05/17/22 4:58:00 EST, Dry Weight Start Date: 10/21/22 Status: Ordered ibuprofen 800 mg oral tablet 1, tablet, By Mouth, 3 times a day, PRN, TAKE WITH FOOD OR MILK., # 90 tablet, Refills 5, Tot. Refills 5, Maintenance, NEEDED FOR PAIN(, 08/27/22 20:18:00 EDT, Route to Pharmacy Electronically, [facility] #[id number], 176.8, cm, 05/01/22 13:41... Start Date: 08/27/22 Status: Ordered losartan 50 mg oral tablet 1 tablet, By Mouth, Daily, # 90 tablet, 1 Refills, Maintenance, 06/03/22 11:27:00 EST, [facility] #[id number], 176.8, cm, 05/01/22 13:41:00 EST, Height, 127.4, kg, 05/17/22 4:58:00 EST, Dry Weight Start Date: 06/03/22 Stop Date: 11/30/22 Status: Ordered mupirocin 2% topical ointment 1 application, Topically, 3 times a day, for 14 days, # 22 Gm, 0 Refills, Acute 11/15/22 16:29:00 EDT, 11/01/22 16:29:00 EDT, Ointment, [facility] #[id number], Partial fill upon patient request if the [...] 11/04/22 16:00:00 EDT, Route to Pharmacy Electronically, [facility] #[id number], P... Start Date: 11/04/22 Stop Date: 11/19/22 Status: Ordered ProAir HFA 90 mcg/inh inhalation aerosol with adapter 2, puffs, Inhalation, Every 6 hours, PRN, # 8.5 Gm, Refills 5, Tot. Refills 5, 04/09/22 15:33:00 EST, Route to Pharmacy Electronically, [id number], [facility] #[id number], 176.8, cm, 02/28/22 10:47:00 EDT, Height, 123.4,... [...] Team Personnel Name: Margarito Berger MD Position: [facility] Physician - Primary Care Member Role: PCP Address: Address: [address] [place] [id number] Name: Bhumika Castillo RN Position: [facility] RN Member Role: Primary Care Nurse Name: Jaja Arshad RN Position: [facility] RN Member Role: Primary Care Nurse Name: Ludwin Butcher RN Position: [facility] RN Member Role: Primary Care Nurse Care Team Related Persons Name: GARRETT FUENTES Address: home [address] [place] [id number] Name: MARLO REINOSO Name: PT STS, NONE Name: EFFIE RICKETTS Name: RANDALL RICKETTS
--- OUTSIDE RECORDS SUMMARY | 2023-09-25 00:29 | XMS_ITS | Continuity of Care Document ---
Author Organization [facility] Address [address] [place] [address]- Care Team Providers Care Assembler Wire Group Name Role Phone Margarito Berger MD Primary Care Physician [place] [facility] [place] 04/07/23 - 05/07/23 [facility] [address] [place] [address]- Allergies, Adverse Reactions, Alerts No Known Medication Allergies Substance Reaction Severity Status Seafood Active Other Food Allergy tuna fish Active Immunizations Given and Recorded Vaccine Date Status Refusal Reason SARS-CoV-2 (COVID-19) mRNA BNT-162b2 vac 05/14/21 Recorded SARS-CoV-2 (COVID-19) mRNA BNT-162b2 vac 09/17/20 Recorded SARS-CoV-2 (COVID-19) mRNA BNT-162b2 vac 08/27/20 Recorded tetanus/diphtheria/pertussis, acel(Tdap) 01/23/11 Given Medications amoxicillin 875 mg oral tablet 1 tablet = 875 mg, By Mouth, 2 times a day, for 10 days, # 20 tablet, 0 Refills, Acute 05/10/23 8:25:00 EST, 04/30/23 8:25:00 EST, Tablet, [facility] #[id number], Partial fill upon patient request if the prescription is for a schedule II opioid d... Start Date: 04/30/23 Stop Date: 05/10/23 Status: Ordered cyclobenzaprine 10 mg oral tablet 10 mg, 1, tablet, By Mouth, 3 times a day, PRN spasms, # 60 tablet, Refills 0, Tot. Refills 0, Maintenance, 05/02/23 11:36:00 EST, Route to Pharmacy Electronically, [facility] #[id number], Partial fill upon patient request if the prescription is... Start Date: 05/02/23 Status: Ordered diclofenac sodium 75 mg oral delayed release tablet 1 tablet, By Mouth, 2 times a day with meals, DIRECTED., # 60 tablet, 1 Refills, Maintenance, 05/04/23 6:22:00 EST, [facility] #[id number], 176.8, cm, 04/30/23 7:39:00 EST, Height, 127.4, kg,05/17/22 4:58:00 EST, Dry Weight Start Date: 05/04/23 Status: Ordered doxycycline hyclate 100 mg oral tablet See Instructions, TAKE 1 TABLET BY MOUTH TWICE DAILY FOR 14 DAYS, # 28 tablet, 0 Refills, Maintenance, 04/10/23 14:15:00 EST, [facility] #[id number], 176.8, cm, 01/24/23 10:59:00 EDT, Height, 127.4, kg, 05/17/22 4:58:00 EST, Dry Weight Start Date: 04/10/23 Status: Ordered EpiPen 2-Michael 0.3 mg injectable kit = 0.3 mg, Intramuscular, Once, PRN severe allergic reaction, may repeat if necessary, # 2 each, 0 Refills, Soft Stop, 01/24/23 12:05:00 EDT, [facility] #[id number], 176.8, cm, 01/24/23 10:59:00 EDT, Height, 127.4, kg, 05/17/22 4:58:00 EST, Dry We... Start Date: 01/24/23 Status: Ordered hydrOXYzine hydrochloride 50 mg oral tablet 1 tablet = 50 mg, By Mouth, 3 times a day, # 90 tablet, 1 Refills, Maintenance, 04/25/23 11:23:00 EST, [facility] #[id number], 176.8, cm, 01/24/23 10:59:00 EDT, Height, 127.4, kg, 05/17/22 4:58:00 EST, Dry Weight Start Date: 04/25/23 Status: Ordered hydrOXYzine hydrochloride 50 mg oral tablet See Instructions, TAKE 1 TABLET BY MOUTH THREE TIMES DAILY, # 90 tablet, 0 Refills, Maintenance, 04/25/23 14:10:00 EST, [facility] #[id number], 176.8, cm, 01/24/23 10:59:00 EDT, Height, 127.4, kg, 05/17/22 4:58:00 EST, Dry Weight Start Date: 04/25/23 Status: Ordered losartan 50 mg oral tablet 1 tablet, By Mouth, Daily, # 90 tablet, 1 Refills, Maintenance, 11/28/22 21:33:00 EDT, [facility] #[id number], 176.8, cm, 11/05/22 11:22:00 EDT, Height, 127.4, kg, 05/17/22 4:58:00 EST, Dry Weight Start Date: 11/28/22 Status: Ordered mupirocin 2% topical ointment See Instructions, APPLY TOPICALLY TO THE AFFECTED AREA THREE TIMES DAILY FOR 14 DAYS, # 22 Gm, 0 Refills, Maintenance, 03/27/23 8:33:00 EST, [facility] #[id number], 10, APPLY TOPICALLY TO THE AFFECTED AREA THREE TIMES DAILY FOR 14 DAYS, 176.8, cm... Start Date: 03/27/23 Status: Ordered oxyCODONE 5 mg oral tablet 5 mg, 1, tablet, By Mouth, Every 8 hours, PRN, mass pat ok, ok for less. TAKE ONLY NEEDED, # 45 tablet, Refills 0, Tot. Refills 0, Maintenance, Pain , Moderate, 04/25/23 11:23:00 EST, Route to Pharmacy Electronically, [facility] #[id number], P... Start Date: 04/25/23 Stop Date: 05/10/23 Status: Ordered predniSONE 20 mg oral tablet See Instructions, 2 tablets By Mouth Daily for 5 days and then 1 tablet by mouth daily for 5 days, # 15 tablet, 0 Refills, Soft Stop, 01/08/23 16:53:00 EDT, Tablet, [facility] #[id number], Partial fill upon patient request if the prescription is... Start Date: 01/08/23 Status: Ordered Ventolin HFA 108 mcg/inh inhalation aerosol with adapter 2 puffs, Inhalation, Every 6 hours, # 8.5 Gm, 6 Refills, Maintenance, 12/23/22 11:39:00 EDT, [facility] #[id number], 176.8, cm, 12/23/22 11:25:00 EDT, Height, 127.4, [...] Team Personnel Name: Margarito Berger MD Position: [facility] Physician - Primary Care Member Role: PCP Address: Address: [address] [place] [address] Name: Bhumika Castillo RN Position: [facility] SN RN Member Role: Primary Care Nurse Name: Jaja Arshad RN Position: [facility] RN Member Role: Primary Care Nurse Name: Ludwin Butcher RN Position: [facility] RN Member Role: Primary Care Nurse Care Team Related Persons Name: GARRETT FEUNTES Address: home [address] [place] [id number] Name: MARLO REINOSO Name: PT STS, NONE Name: EFFIE RICKETTS Name: RANDALL RICKETTS
--- OUTSIDE RECORDS SUMMARY | 2023-09-25 00:29 | XMS_ITS | Continuity of Care Document ---
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 Start Date: 10/21/22 Status: Ordered EpiPen 2-Michael 0.3 mg injectable kit = 0.3 mg, Intramuscular, Once, PRN severe allergic reaction, may repeat if necessary, # 2 each, 0 Refills, Soft Stop, 11/06/20 13:52:00 EDT, [facility] #[id number], 176.8, cm, 11/06/20 13:38:00 EDT, Height, 140.3, kg, 11/06/20 13:38:00 EDT, Dry W... Start Date: 11/06/20 Status: Ordered hydrOXYzine hydrochloride 50 mg oral tablet See Instructions, TAKE 1 TABLET BY MOUTH FOUR TIMES DAILY FOR 12 DAYS NEEDED FOR ANXIETY, # 48 tablet, 0 Refills, Maintenance, 06/14/22 15:46:00 EST, [facility] #[id number], 176.8, cm, 05/01/22 13:41:00 EST, Height, 127.4, kg, 05/17/22 4:58:00... Start Date: 06/14/22 Status: Ordered hydrOXYzine hydrochloride 50 mg oral tablet See Instructions, TAKE 1 TABLET BY MOUTH FOUR TIMES DAILY FOR 12 DAYS NEEDED FOR ANXIETY, # 48 tablet, 0 Refills, Maintenance, 07/01/22 17:28:00 EST, [facility] #[id number], 176.8, cm, 05/01/22 13:41:00 EST, Height, 127.4, kg, 05/17/22 4:58:00... Start Date: 07/01/22 Status: Ordered hydrOXYzine hydrochloride 50 mg oral tablet 1 tablet = 50 mg, By Mouth, 3 times a day, # 60 tablet, 1 Refills, Maintenance, 10/21/22 15:31:00 EDT, [facility] #[id number], 176.8, cm, 10/11/22 16:37:00 EDT, Height, 127.4, [...] 08/27/22 20:18:00 EDT, Route to Pharmacy Electronically, [facility] #[id number], 176.8, cm, 05/01/22 13:41... Start Date: 08/27/22 [...] tablet, 1 Refills, Maintenance, 06/03/22 11:27:00 EST, [facility] #[id number], 176.8, cm, 05/01/22 13:41:00 EST, Height, 127.4, kg, 05/17/22 4:58:00 EST, Dry Weight Start Date: 06/03/22 Stop Date: 11/30/22 Status: Ordered MiraLax Powder 1 pack/packet = 17 Gm, By Mouth, Daily, PRN Constipation, 0 Refills, Maintenance, 05/18/22 7:55:00 EST, Powder, Partial fill upon patient request if the prescription is for a schedule II opioid drug. Start Date: 05/18/22 Status: Ordered mupirocin 2% topical ointment 1 application, Topically, 3 times a day, for 14 days, # 22 Gm, 0 Refills, Acute 11/15/22 16:29:00 EDT, 11/01/22 16:29:00 EDT, Ointment, [facility] #[id number], Partial fill upon patient request if the [...] 10/23/22 17:05:00 EDT, Route to Pharmacy Electronically, [facility] #[id number], P... Start Date: 10/23/22 Stop Date: 11/07/22 [...] 04/09/22 15:33:00 EST, Route to Pharmacy Electronically, [id number], [facility] #[id number], 176.8, cm, 02/28/22 10:47:00 EDT, Height, 123.4,... [...] 12/06/22 16:54:00 EDT, 10/11/22 16:54:00 EDT, Ointment, [facility] #[id number], Partial fill upon patient request if the [...] Team Personnel Name: Margarito Berger MD Position: [facility] Physician - Primary Care Member Role: PCP Address: Address: [address] [place] [id number] Name: Bhumika Castillo RN Position: [facility] RN Member Role: Primary Care Nurse Name: Jaja Arshad RN Position: S RN Member Role: Primary Care Nurse Name: Ludwin Butcher RN Position: S RN Member Role: Primary Care Nurse Care Team Related Persons Name: GARRETT FUENTES Address: home [address] [place] [address] Name: MARLO REINOSO Name: PT STS, NONE Name: EFFIE RICKETTS Name: RANDALL RICKETTS
--- OUTSIDE RECORDS SUMMARY | 2023-09-25 00:29 | XMS_ITS | Continuity of Care Document ---
Author Organization [facility] Address [address] [place] [address]- Care Team Providers Care Speech Lang Path Name Role Phone Margarito Berger MD Primary Care Physician [place] [facility] - 05/18/22 [facility] [address] [place] [address]- Allergies, Adverse Reactions, Alerts No Known Medication [...] 05/25/22 7:52:00 EST, 05/18/22 7:52:00 EST, Capsule, [facility], Partial fill upon patient request if [...] 05/18/22 7:52:00 EST, Route to Pharmacy Electronically, [facility], Partial fill upon patient request... Start Date: 05/18/22 Stop Date: 06/01/22 Status: Ordered Dilaudid 2 mg oral tablet See Instructions, PRN Pain , Severe, 1-2 tablet By Mouth Every 4 hours, # 84 tablet, 0 Refills, Acute 05/25/22 7:52:00 EST, 05/18/22 7:51:00 EST, Tablet, [facility], Partial fill upon patient request if the prescription is for a schedule... Start Date: 05/18/22 Stop Date: 05/25/22 Status: Ordered EpiPen 2-Michael 0.3 mg injectable kit = 0.3 mg, Intramuscular, Once, PRN severe allergic reaction, may repeat if necessary, # 2 each, 0 Refills, Soft Stop, 11/06/20 13:52:00 EDT, [facility] #[id number], 176.8, cm, 11/06/20 13:38:00 EDT, Height, 140.3, [...] 04/09/22 15:33:00 EST, Route to Pharmacy Electronically, [id number], [facility] #[id number], 176.8, cm, 02/28/22 10:47:00 EDT, Height, 123.4,... [...] 05/25/22 7:51:00 EST, 05/18/22 7:51:00 EST, Tablet, [facility], Partial fill upon patient request if [...] Team Personnel Name: Margarito Berger MD Position: [facility] Primary Care Physician Member Role: PCP Address: Address: [address] [place] [id number] Name: Bhumika Castillo RN Position: [facility] RN Member Role: Primary Care Nurse Name: Jaja Arshad RN Position: [facility] RN Member Role: Primary Care Nurse Name: Ludwin Butcher RN Position: [facility] RN Member Role: Primary Care Nurse Care Team Related Persons Name: GARRETT FUENTES Address: home [address] [place] [id number] Name: MARLO REINOSO Name: PT STS, NONE Name: EFFIE RICKETTS Name: RANDALL RICKETTS
--- OUTSIDE RECORDS SUMMARY | 2023-09-25 00:29 | XMS_ITS | Continuity of Care Document ---
Author Organization [facility] Address [address] [place] [address]- Care Team Providers Care Goodyear Stitcher Name Role Phone Margarito Berger MD Primary Care Physician Encounter [facility] Date(s): 05/18/21 - 05/25/21 [facility] [address] [place] [address]- Encounter Diagnosis BMI 45.0-49.9, adult(Discharge Diagnosis) - 05/18/21 Morbid obesity(Discharge Diagnosis) - 05/18/21 Right elbow pain(Discharge Diagnosis) - 05/18/21 Bilateral knee pain(Discharge Diagnosis) - 05/18/21 Attending Physician: Margarito Berger MD Allergies, Adverse [...] 6 Refills, Maintenance, 01/08/21 12:55:00 EDT, Powder, [facility] #[id number], Partial fill upon patient request if the prescription is for a schedule II opioid drug., 2 puffs Inhalatio... Start Date: 01/08/21 Status: Ordered EpiPen 2-Michael 0.3 mg injectable kit = 0.3 mg, Intramuscular, Once, PRN severe allergic reaction, may repeat if necessary, # 2 each, 0 Refills, Soft Stop, 11/06/20 13:52:00 EDT, [facility] #[id number], 176.8, cm, 11/06/20 13:38:00 EDT, Height, 140.3, kg, 11/06/20 13:38:00 EDT, Dry W... Start Date: 11/06/20 Status: Ordered hydrOXYzine hydrochloride 50 mg oral tablet 1 tablet, By Mouth, 4 times a day, PRN NEEDED FOR ANXIETY, # 40 tablet, 0 Refills, [facility] #[id number], 176.8, cm, 05/18/21 14:17:00 EST, Height, 140.3, kg, 11/06/20 13:38:00 EDT, Dry Weight Start Date: 05/22/21 Status: Ordered ibuprofen 800 mg oral tablet 800 mg, 1, tablet, By Mouth, 3 times a day, PRN, with food or milk, # 90 tablet, Refills 2, Tot. Refills 2, Maintenance, as needed for pain, 04/10/21 11:47:00 EST, Route to Pharmacy Electronically, [facility] #[id number], 176.8, cm, 02/01/21 16:0... Start Date: 04/10/21 [...] 02/26/21 14:39:00 EDT, Route to Pharmacy Electronically, [facility] #[id number], Partial fill upon patientrequest if the prescription is for a schedule II op... Start Date: 02/26/21 Stop Date: 05/27/21 Status: Ordered losartan 50 mg oral tablet 1 tablet = 50 mg, By Mouth, Daily, for 30 days, # 30 tablet, 5 Refills, Physician Stop 10/13/21 14:50:00 EDT, 04/16/21 14:50:00 EST, [facility] #[id number], 176.8, cm, 02/01/21 16:07:00 EDT, Height, 140.3, kg, 11/06/20 13:38:00 EDT, Dry Weight Start Date: 04/16/21 Stop Date: 10/13/21 Status: Ordered metFORMIN 750 mg oral tablet, extended release 1 tablet, By Mouth, Daily, # 60 tablet, 5 Refills, [facility] #90123, 176.8, cm, 02/02/2116:07:00 EDT, Height, 140.3, kg, 11/06/20 13:38:00 EDT, Dry Weight Start Date: 03/30/21 Status: Ordered oxyCODONE 5 mg oral tablet 5 mg, 1, tablet, By Mouth, Every 8 hours, PRN, Take only as needed, # 45 tablet, Refills 0, Tot. Refills 0, Maintenance, Pain , Moderate, 05/18/21 16:28:00 EST, Route to Pharmacy Electronically, [facility] #[id number], Partial fill upon patient r... Start Date: 05/18/21 Status: Ordered phentermine 30 mg oral capsule [...] EUCERIN CREAM, # 80 Gm, 0 Refills, [facility] #[id number], 14, APPLY TOPICALLY TOTHE AFFECTED AREA ON ARMS AND LEGS THREE TIMES RAMESH... Start Date: 05/18/21 Status: Ordered Problem List Condition Effective Dates Status Health Status Inform ant BMI 45.0-49.9, adult(Confirmed) Active Chronic knee pain(Confirmed) Active Chronic low back pain(Confirmed) Active Daytime sleepiness(Confirmed) Active Hypertension(Confirmed) Active Morbid obesity(Confirmed) Active SKIP - Obstructive sleep apnea(Confirmed) Active Prediabetes(Confirmed) Active Diagnosis Diagnosis Type Effective Dates Health Status Cl inical Service Informant BMI 45.0-49.9, adult Discharge Diagnosis 05/18/21 Morbid obesity Discharge Diagnosis 05/18/21 Right elbow pain Discharge Diagnosis 05/18/21 Bilateral knee pain Discharge Diagnosis 05/18/21 Vital Signs Most recent to oldest [Reference Range]: 1 Height 176.8 cm (05/18/21 2:17 PM) Social History Social History Type Response Smoking Status 5-9 cigarettes (betw een 1/4 to 1/2 pack)/day in last 30 days; Tobacco use times per day: 7; entered on: 12/31/18 Sex
--- OUTSIDE RECORDS SUMMARY | 2023-09-25 00:30 | XMS_ITS | Continuity of Care Document ---
Author Organization [facility] Address [address] [place] [address]- Care Team Providers Care High School Foreign Language Tutor Name Role Phone Ab FRAGA, Margarito Dolan Primary Care Physician Encounter [facility] Date(s): 12/20/22 - 01/19/23 [facility] [address] [place] [address]- Allergies, Adverse Reactions, Alerts No Known Medication [...] 12/31/22 7:50:00 EDT, Route to Pharmacy Electronically, [facility] #[id number], Partial fill upon patient request if the prescription is f... Start Date: 12/31/22 Status: Ordered diclofenac sodium 75 mg oral delayed release tablet See Instructions, TAKE 1 TABLET BY MOUTH TWICE DAILY WITH FOOD DIRECTED, # 60 tablet, 1 Refills,12/16/22 0:00:00 EDT, [facility] #[id number], 176.8, cm, 12/09/22 9:21:00 EDT, Height, 127.4, kg, 05/17/22 4:58:00 EST, Dry Weight Start Date: 12/16/22 Status: Ordered EpiPen 2-Michael 0.3 mg injectable kit = 0.3 mg, Intramuscular, Once, PRN severe allergic reaction, may repeat if necessary, # 2 each, 0 Refills, Soft Stop, 11/06/20 13:52:00 EDT, [facility] #[id number], 176.8, cm, 11/06/20 13:38:00 EDT, Height, 140.3, kg, 11/06/20 13:38:00 EDT, Dry W... Start Date: 11/06/20 Status: Ordered hydrOXYzine hydrochloride 50 mg oral tablet 1 tablet = 50 mg, By Mouth, 3 times a day, # 60 tablet, 1 Refills, Maintenance, 12/16/22 12:01:00 EDT, [facility] #[id number], 176.8, cm, 12/09/22 9:21:00 EDT, Height, 127.4, kg, 05/17/22 4:58:00 EST, Dry Weight Start Date: 12/16/22 Status: Ordered ibuprofen 800 mg oral tablet 1, tablet, By Mouth, 3 times a day, PRN, TAKE WITH FOOD OR MILK., # 90 tablet, Refills 5, Tot. Refills 5, Maintenance, NEEDED FOR PAIN(, 08/27/22 20:18:00 EDT, Route to Pharmacy Electronically, [facility] #[id number], 176.8, cm, 05/01/22 13:41... Start Date: 08/27/22 Status: Ordered losartan 50 mg oral tablet 1 tablet, By Mouth, Daily, # 90 tablet, 1 Refills, Maintenance, 11/28/22 21:33:00 EDT, [facility] #[id number], 176.8, cm, 11/05/22 11:22:00 EDT, Height, 127.4, kg, 05/17/22 4:58:00 EST, Dry Weight Start Date: 11/28/22 Status: Ordered mupirocin 2% topical ointment 1 application, Topically, 3 times a day, for 14 days, # 22 Gm, 3 Refills, Acute 01/20/23 16:10:00 EDT, 11/25/22 16:10:00 EDT, Ointment, [facility] #[id number], Partial fill upon patient request if the [...] 01/07/23 14:25:00 EDT, Route to Pharmacy Electronically, [facility] #[id number], P... Start Date: 01/07/23 Stop Date: 01/22/23 Status: Ordered oxyCODONE 5 mg oral tablet 5 mg, 1, tablet, By Mouth, Every 8 hours, [place]pat checked, # 29 tablet, Refills 0, Tot. Refills 0, Acute 01/26/23 17:07:00 EDT, 01/07/23 7:30:00 EDT, Route to Pharmacy Electronically, [facility] #[id number], Partial fill upon patient request if t... Start Date: 01/07/23 Stop Date: 01/26/23 Status: Ordered predniSONE 20 mg oral tablet See Instructions, 2 tablets By Mouth Daily for 5 days and then 1 tablet by mouth daily for 5 days, # 15 tablet, 0 Refills, Soft Stop, 01/08/23 16:53:00 EDT, Tablet, [facility] #[id number], Partial fill upon patient request if the prescription is... Start Date: 01/08/23 Status: Ordered ProAir HFA 90 mcg/inh inhalation aerosol with adapter 2, puffs, Inhalation, Every 6 hours, PRN, # 8.5 Gm, Refills 5, Tot. Refills 5, 04/09/22 15:33:00 EST, Route to Pharmacy Electronically, [id number], [facility] #[id number], 176.8, cm, 02/28/22 10:47:00 EDT, Height, 123.4,... Start Date: 04/09/22 Status: Ordered Ventolin HFA 108 mcg/inh inhalation aerosol with adapter 2 puffs, Inhalation, Every 6 hours, # 8.5 Gm, 6 Refills, Maintenance, 12/23/22 11:39:00 EDT, [facility] #[id number], 176.8, cm, 12/23/22 11:25:00 EDT, Height, 127.4, [...] Team Personnel Name: Margarito Berger MD Position: [facility] Physician - Primary Care Member Role: PCP Address: Address: [address] [place] [address] Name: Bhumika Castillo RN Position: [facility] SN RN Member Role: Primary Care Nurse Name: Jaja Arshad RN Position: S RN Member Role: Primary Care Nurse Name: Ludwin Butcher RN Position: S RN Member Role: Primary Care Nurse Care Team Related Persons Name: GARRETT FUENTES Address: home [address] [place] [address] Name: MARLO REINOSO Name: PT STS, NONE Name: EFFIE RICKETTS Name: RANDALL RICKETTS
--- OUTSIDE RECORDS SUMMARY | 2023-09-25 00:30 | XMS_ITS | Continuity of Care Document ---
Author Organization [facility] Address [address] [place] [address] [address] [place] [address]- Care Team Providers Care Paraffiner Name Role Phone Ab FRAGA, Margarito Dolan Primary Care Physician Encounter [facility] Date(s): 11/25/22 - 12/02/22 [facility] [address] [place] [address]- Encounter Diagnosis Open wound of nose(Discharge Diagnosis) - 11/25/22 Attending Physician: Ayush Rosenberg MD Allergies, Adverse Reactions, Alerts No Known [...] 11/11/22 11:59:00 EDT, Route to Pharmacy Electronically, [facility] #[id number], Partial fill upon patient request if the prescription is... Start Date: 11/11/22 Status: Ordered EpiPen 2-Michael 0.3 mg injectable kit = 0.3 mg, Intramuscular, Once, PRN severe allergic reaction, may repeat if necessary, # 2 each, 0 Refills, Soft Stop, 11/06/20 13:52:00 EDT, [facility] #07399, 176.8, cm, 11/06/20 13:38:00 EDT, Height, 140.3, kg, 11/06/20 13:38:00 EDT, Dry W... Start Date: 11/06/20 Status: Ordered hydrOXYzine hydrochloride 50 mg oral tablet 1 tablet = 50 mg, By Mouth, 3 times a day, # 60 tablet, 1 Refills, Maintenance, 10/21/22 15:31:00 EDT, [facility] #01683, 176.8, cm, 10/11/22 16:37:00 EDT, Height, 127.4, kg, 05/17/22 4:58:00 EST, Dry Weight Start Date: 10/21/22 Status: Ordered ibuprofen 800 mg oral tablet 1, tablet, By Mouth, 3 times a day, PRN, TAKE WITH FOOD OR MILK., # 90 tablet, Refills 5, Tot. Refills 5, Maintenance, NEEDED FOR PAIN(, 08/27/22 20:18:00 EDT, Route to Pharmacy Electronically, [facility] #56568, 176.8, cm, 05/01/22 13:41... Start Date: 08/27/22 Status: Ordered losartan 50 mg oral tablet 1 tablet, By Mouth, Daily, # 90 tablet, 1 Refills, Maintenance, 11/28/22 21:33:00 EDT, [facility] #[id number], 176.8, cm, 11/05/22 11:22:00 EDT, Height, 127.4, kg, 05/17/22 4:58:00 EST, Dry Weight Start Date: 11/28/22 Status: Ordered mupirocin 2% topical ointment 1 application, Topically, 3 times a day, for 14 days, # 22 Gm, 3 Refills, Acute 01/20/23 16:10:00 EDT, 11/25/22 16:10:00 EDT, Ointment, [facility] #32472, Partial fill upon patient request if the [...] 11/22/22 14:29:00 EDT, Route to Pharmacy Electronically, [facility] #[id number], P... Start Date: 11/22/22 Stop Date: 12/07/22 Status: Ordered ProAir HFA 90 mcg/inh inhalation aerosol with adapter 2, puffs, Inhalation, Every 6 hours, PRN, # 8.5 Gm, Refills 5, Tot. Refills 5, 04/09/22 15:33:00 EST, Route to Pharmacy Electronically, [id number], [facility] #[id number], 176.8, cm, 02/28/22 10:47:00 EDT, Height, 123.4,... Start Date: 04/09/22 Status: Ordered Ventolin HFA 108 mcg/inh inhalation aerosol with adapter See Instructions, INHALE 2 PUFFS BY MOUTH EVERY 6 HOURS NEEDED, # 18 Gm, 0 Refills, Maintenance,11/29/22 9:18:00 EDT, [facility] #[id number], 176.8, cm, 11/05/22 11:22:00 EDT, Height, 127.4,kg, [...] Informant Open wound of nose Discharge Diagnosis 11/25/22 Non-Specified Social History Social History Type Response Smoking Status 5-9 cigarettes (betw een 1/4 to 1/2 pack)/day in last 30 days; Tobacco use times per day: 7; entered on: 12/31/18 Sex Patient Care team information Care Team Personnel Name: Margarito Berger MD Position: [facility] Physician - Primary Care Member Role: PCP Address: Address: [address] [place] [address] Name: Bhumika Castillo RN Position: [facility] SN RN Member Role: Primary Care Nurse Name: Jaja Arshad RN Position: [facility] RN Member Role: Primary Care Nurse Name: Ludwin Butcher RN Position: [facility] RN Member Role: Primary Care Nurse Care Team Related Persons Name: GARRETT FUENTES Address: home [address] [place] [address] Name: MARLO REINOSO Name: PT STS, NONE Name: EFFIE RICKETTS Name: RANDALL RICKETTS
--- OUTSIDE RECORDS SUMMARY | 2023-09-25 00:30 | XMS_ITS | Continuity of Care Document ---
Author Organization [facility] Address [address] [place] [address]- Care Team Providers Care Cage Maker Name Role Phone Margarito Berger MD Primary Care Physician Encounter [facility] Date(s): 07/22/23 - 08/21/23 [facility] [address] [place] [address]- Allergies, Adverse Reactions, Alerts No Known Medication [...] tablet, 0 Refills, Maintenance, 05/28/23 8:20:00 EST, [facility] #[id number], 176.8, cm, 04/30/23 7:39:00 EST, Height, 127.4, kg, 05/17/22 4:58:00 EST, Dry Weight Start Date: 05/28/23 Stop Date: 06/07/23 Status: Ordered cyclobenzaprine 10 mg oral tablet 1, tablet, By Mouth, 3 times a day, PRN, # 60 tablet, Refills 0, Maintenance, NEEDED FOR SPASMS,08/18/23 12:16:00 EDT, Route to Pharmacy Electronically, [facility] #[id number], 176.8, cm, 04/30/23 7:39:00 EST, Height, 127.4, kg, 05/17/22 4:58... Start Date: 08/18/23 Status: Ordered diclofenac sodium 75 mg oral delayed release tablet 1 tablet, By Mouth, 2 times a day with meals, DIRECTED., # 60 tablet, 5 Refills, Maintenance, 07/01/23 20:55:00 EST, [facility] #[id number], 176.8, cm, 04/30/23 7:39:00 EST, Height, 127.4, kg, 05/17/22 4:58:00 EST, Dry Weight Start Date: 07/01/23 Status: Ordered doxycycline hyclate 100 mg oral tablet 1 tablet, By Mouth, 2 times a day, # 28 tablet, 0 Refills, Maintenance, 07/16/23 17:07:00 EDT, [facility] #[id number], 176.8, cm, 04/30/23 7:39:00 EST, Height, 127.4, kg, 05/17/22 4:58:00 EST, Dry Weight Start Date: 07/16/23 Stop Date: 07/30/23 Status: Ordered EpiPen 2-Michael 0.3 mg injectable kit = 0.3 mg, Intramuscular, Once, PRN severe allergic reaction, may repeat if necessary, # 2 each, 0 Refills, Soft Stop, 01/24/23 12:05:00 EDT, [facility] #[id number], 176.8, cm, 01/24/23 10:59:00 EDT, Height, 127.4, kg, 05/17/22 4:58:00 EST, Dry We... Start Date: 01/24/23 Status: Ordered hydrOXYzine hydrochloride 50 mg oral tablet 1 tablet = 50 mg, By Mouth, 3 times a day, PRN as needed for itching, # 90 tablet, 1 Refills, Maintenance, 06/18/23 13:07:00 EST, [facility] #[id number], 176.8, cm, 04/30/23 7:39:00 EST, Height,127.4, kg, 05/17/22 4:58:00 EST, Dry Weight Start Date: 06/18/23 Status: Ordered hydrOXYzine hydrochloride 50 mg oral tablet 1 tablet = 50 mg, By Mouth, 3 times a day, # 90 tablet, 1 Refills, Maintenance, 04/25/23 11:23:00 EST, [facility] #[id number], 176.8, cm, 01/24/23 10:59:00 EDT, Height, 127.4, kg, 05/17/22 4:58:00 EST, Dry Weight Start Date: 04/25/23 Status: Ordered losartan 50 mg oral tablet 1 tablet, By Mouth, Daily, # 90 tablet, 1 Refills, Maintenance, 06/05/23 18:32:00 EST, [facility] #[id number], 176.8, cm, 04/30/23 7:39:00 EST, Height, 127.4, kg, 05/17/22 4:58:00 EST, Dry Weight Start Date: 06/05/23 Status: Ordered metFORMIN 750 mg oral tablet, extended release 1 tablet = 750 mg, By Mouth, Daily, # 90 tablet, 1 Refills, Maintenance, 05/19/23 11:12:00 EST, ER Tablet, [facility] #[id number], Partial fill upon patient request if the prescription is for a schedule II opioid drug., 176.8, cm, 04/30/23 7:39:0... Start Date: 05/19/23 Status: Ordered mupirocin 2% topical ointment See Instructions, APPLY TOPICALLY TO THE AFFECTED AREA THREE TIMES DAILY FOR 14 DAYS, # 22 Gm, 0 Refills, Maintenance, 06/03/23 13:22:00 EST, [facility] #[id number], APPLY TOPICALLY TO THE AFFECTED AREA THREE TIMES DAILY FOR 14 DAYS, 176.8, cm, 0... Start Date: 06/03/23 Status: Ordered oxyCODONE 5 mg oral tablet 5 mg, 1, tablet, By Mouth, Every 8 hours, PRN, mass pat ok, ok for less. TAKE ONLY NEEDED DNF 08/08/2023, # 45 tablet, Refills 0, Tot. Refills 0, Maintenance, Pain , Moderate, 08/11/23 7:36:00 EDT, Route to Pharmacy Electronically, [facility]... Start Date: 08/11/23 Stop Date: 08/26/23 Status: Ordered predniSONE 20 mg oral tablet See Instructions, 2 tablets By Mouth Daily for 5 days and then 1 tablet by mouth daily for 5 days, # 15 tablet, 0 Refills, Soft Stop, 01/08/23 16:53:00 EDT, Tablet, [facility] #[id number], Partial fill upon patient request if the prescription is... Start Date: 01/08/23 Status: Ordered triamcinolone 0.025% topical ointment 1 application, Topically, 3 times a day, Apply to affected area, # 15 Gm, 1 Refills, Maintenance, 06/03/23 9:33:00 EST, Ointment, [facility] #[id number], Partial fill upon patient request if theprescription is for a schedule II opioid drug., 1 a... Start Date: 06/03/23 Status: Ordered Ventolin HFA 108 mcg/inh inhalation aerosol with adapter 2 puffs, Inhalation, Every 6 hours, # 18 Gm, 5 Refills, Maintenance, 05/25/23 6:11:00 EST, [facility] #09442, 176.8, cm, 04/30/23 7:39:00 EST, Height, 127.4, [...] Primary Care Member Role: PCP Address: Address: [address] [place] [id number] Name: Bhumika Castillo RN Position: [facility] RN Member Role: Primary Care Nurse Name: Jaja Arshad RN Position: S RN Member Role: Primary Care Nurse Name: Ludwin Butcher RN Position: [facility] RN Member Role: Primary Care Nurse Care Team Related Persons Name: GARRETT FUENTES Address: home [address] [place] [address] Name: MARLO REINOSO Name: PT STS, NONE Name: EFFIE RICKETTS Name: RANDALL RICKETTS
--- OUTSIDE RECORDS SUMMARY | 2023-09-25 00:30 | XMS_ITS | Continuity of Care Document ---
Author Organization [facility] Address [address] [place] [address]- Care Team Providers Care Loft Patternmaker Name Role Phone Margarito Berger MD Primary Care Physician Encounter [facility] Date(s): 07/22/22 - 08/21/22 [facility] [address] [place] [address]- Allergies, Adverse Reactions, Alerts No Known Medication [...] 08/13/22 22:55:00 EDT, Route to Pharmacy Electronically, [facility] #[id number], Partial fill upon patient request if the prescription is... Start Date: 08/13/22 Status: Ordered cyclobenzaprine 10 mg oral tablet 10 mg, 1, tablet, By Mouth, 3 times a day, PRN spasms, # 60 tablet, Refills 0, Tot. Refills 0, Acute 08/24/22 12:00:00 EDT, 07/24/22 16:55:00 EDT, Route to Pharmacy Electronically, [facility] #[id number], Partial fill upon patient request if the... Start Date: 07/24/22 Stop Date: 08/24/22 Status: Ordered EpiPen 2-Michael 0.3 mg injectable kit = 0.3 mg, Intramuscular, Once, PRN severe allergic reaction, may repeat if necessary, # 2 each, 0 Refills, Soft Stop, 11/06/20 13:52:00 EDT, [facility] #[id number], 176.8, cm, 11/06/20 13:38:00 EDT, Height, 140.3, kg, 11/06/20 13:38:00 EDT, Dry W... Start Date: 11/06/20 Status: Ordered hydrOXYzine hydrochloride 50 mg oral tablet See Instructions, TAKE 1 TABLET BY MOUTH FOUR TIMES DAILY FOR 12 DAYS NEEDED FOR ANXIETY, # 48 tablet, 0 Refills, Maintenance, 06/14/22 15:46:00 EST, [facility] #[id number], 176.8, cm, 05/01/22 13:41:00 EST, Height, 127.4, kg, 05/17/22 4:58:00... Start Date: 06/14/22 Status: Ordered hydrOXYzine hydrochloride 50 mg oral tablet See Instructions, TAKE 1 TABLET BY MOUTH FOUR TIMES DAILY FOR 12 DAYS NEEDED FOR ANXIETY, # 48 tablet, 0 Refills, Maintenance, 07/01/22 17:28:00 EST, [facility] #[id number], 176.8, cm, 05/01/22 13:41:00 EST, Height, 127.4, kg, 05/17/22 4:58:00... Start Date: 07/01/22 Status: Ordered hydrOXYzine hydrochloride 50 mg oral tablet 1 tablet = 50 mg, By Mouth, 3 times a day, # 60 tablet, 1 Refills, Maintenance, 07/24/22 16:54:00 EDT, [facility] #[id number], 176.8, cm, 05/01/22 13:41:00 EST, Height, 127.4, [...] tablet, 1 Refills, Maintenance, 06/03/22 11:27:00 EST, [facility] #[id number], 176.8, cm, 05/01/22 13:41:00 EST, Height, 127.4, [...] 08/20/22 16:50:00 EDT, Route to Pharmacy Electronically, [facility] #[id number], P... Start Date: 08/20/22 Stop Date: 09/04/22 [...] 04/09/22 15:33:00 EST, Route to Pharmacy Electronically, [id number], [facility] #[id number], 176.8, cm, 02/28/22 10:47:00 EDT, Height, 123.4,... [...] Team Personnel Name: Margarito Berger MD Position: [facility] Primary Care Physician Member Role: PCP Address: Address: [address] [place] [address] Name: Bhumika Castillo RN Position: [facility] SN RN Member Role: Primary Care Nurse Name: Jaja Arshad RN Position: [facility] RN Member Role: Primary Care Nurse Name: Ludwin Butcher RN Position: [facility] RN Member Role: Primary Care Nurse Care Team Related Persons Name: GARRETT FUENTES Address: home [address] [place] [address] Name: MARLO REINOSO Name: PT STS, NONE Name: EFFIE RICKETTS Name: RANDALL RICKETTS
--- OUTSIDE RECORDS SUMMARY | 2023-09-25 00:30 | XMS_ITS | Continuity of Care Document ---
Author Organization [facility] Address [address] [place] [address]- Care Team Providers Care Drywall Mechanic Name Role Phone Ab FRAGA, Margarito Dolan Primary Care Physician Encounter [facility] Date(s): 09/07/21 - 10/07/21 [facility] [address] [place] [address]- Attending Physician: Admtr, Lona Admitting Physician: Admtr, Ar8 Referring Physician: Admtr, [...] 0 Refills, Soft Stop, 11/06/20 13:52:00 EDT, [facility] #[id number], 176.8, cm, 11/06/20 13:38:00 EDT, Height, 140.3, kg, 11/06/20 13:38:00 EDT, Dry W... Start Date: 11/06/20 Status: Ordered ibuprofen 800 mg oral tablet 1, tablet, By Mouth, 3 times a day, PRN, TAKE WITH FOOD OR MILK, # 90 tablet, Refills 0, NEEDED FOR PAIN, Route to Pharmacy Electronically, [facility] #[id number], 176.8, cm, 06/21/21 15:26:00 EST, Height, 140.3, kg, 11/06/20 13:38:00 EDT, Dry... Start Date: 07/23/21 Status: Ordered ibuprofen 800 mg oral tablet 1, tablet, By Mouth, 3 times a day, PRN, TAKE WITH FOOD OR MILK, # 90 tablet, Refills 0, Tot. Refills 0, Maintenance, NEEDED FOR PAIN, 08/27/21 15:32:00 EDT, Route to Pharmacy Electronically, [facility] #[id number], 176.8, cm, 08/06/21 15:06:0... Start Date: 08/27/21 [...] 02/26/21 14:39:00 EDT, Route to Pharmacy Electronically, [facility] #[id number], Partial fill upon patientrequest if the prescription is for a schedule II op... Start Date: 02/26/21 Stop Date: 05/27/21 Status: Ordered losartan 50 mg oral tablet 1 tablet = 50 mg, By Mouth, Daily, for 30 days, # 30 tablet, 5 Refills, Physician Stop 10/13/21 14:50:00 EDT, 04/16/21 14:50:00 EST, [facility] #[id number], 176.8, cm, 02/01/21 16:07:00 EDT, Height, 140.3, kg, 11/06/20 13:38:00 EDT, Dry Weight Start Date: 04/16/21 Stop Date: 10/13/21 Status: Ordered metFORMIN 750 mg oral tablet, extended release 1 tablet, By Mouth, Daily, # 60 tablet, 5 Refills, [facility] #[id number], 176.8, cm, 02/02/2116:07:00 EDT, Height, 140.3, kg, 11/06/20 13:38:00 EDT, Dry Weight Start Date: 03/30/21 Status: Ordered oxyCODONE 5 mg oral tablet 5 mg, 1, tablet, By Mouth, Every 8 hours, PRN, mass pat ok, ok for less. Take only as needed., # 45tablet, Refills 0, Tot. Refills 0, Maintenance, Pain , Moderate, 09/28/21 17:08:00 EDT, Route to Pharmacy Electronically, [facility] #[id number],... Start Date: 09/28/21 Stop Date: 10/13/21 Status: [...] Gm, Refills 5, Route to Pharmacy Electronically, [id number], [facility] #[id number], 176.8, cm, 05/18/21 14:17:00 EST, Height, 140.3, kg, 11/06/20 13:38:00 EDT, Dry Weight Start Date: 06/13/21 Status: Ordered triamcinolone 0.1% topical cream See Instructions, APPLY TOPICALLY TO THE AFFECTED AREA ON ARMS AND LEGS THREE TIMES DAILY. MIX WITH16 OUNCES OF EUCERIN CREAM, # 80 Gm, 0 Refills, [facility] #[id number], 14, APPLY TOPICALLY TOTHE AFFECTED AREA ON [...]
--- OUTSIDE RECORDS SUMMARY | 2023-09-25 00:30 | XMS_ITS | Continuity of Care Document ---
Author Organization [facility] Address [address] [place] [address]- Care Team Providers Care Projector Booth Operator Name Role Phone Margarito Berger MD Primary Care Physician [place] [facility] [place] 12/04/22 [facility] [address] [place] [address]- Allergies, Adverse Reactions, Alerts No Known Medication [...] 12/04/22 20:21:00 EDT, Route to Pharmacy Electronically, [facility] #[id number], Partial fill upon patient request if the prescription is... Start Date: 12/04/22 Status: Ordered EpiPen 2-Michael 0.3 mg injectable kit = 0.3 mg, Intramuscular, Once, PRN severe allergic reaction, may repeat if necessary, # 2 each, 0 Refills, Soft Stop, 11/06/20 13:52:00 EDT, [facility] #[id number], 176.8, cm, 11/06/20 13:38:00 EDT, Height, 140.3, kg, 11/06/20 13:38:00 EDT, Dry W... Start Date: 11/06/20 Status: Ordered hydrOXYzine hydrochloride 50 mg oral tablet 1 tablet = 50 mg, By Mouth, 3 times a day, # 60 tablet, 1 Refills, Maintenance, 10/21/22 15:31:00 EDT, [facility] #[id number], 176.8, cm, 10/11/22 16:37:00 EDT, Height, 127.4, kg, 05/17/22 4:58:00 EST, Dry Weight Start Date: 10/21/22 Status: Ordered ibuprofen 800 mg oral tablet 1, tablet, By Mouth, 3 times a day, PRN, TAKE WITH FOOD OR MILK., # 90 tablet, Refills 5, Tot. Refills 5, Maintenance, NEEDED FOR PAIN(, 08/27/22 20:18:00 EDT, Route to Pharmacy Electronically, [facility] #[id number], 176.8, cm, 05/01/22 13:41... Start Date: 08/27/22 Status: Ordered losartan 50 mg oral tablet 1 tablet, By Mouth, Daily, # 90 tablet, 1 Refills, Maintenance, 11/28/22 21:33:00 EDT, [facility] #[id number], 176.8, cm, 11/05/22 11:22:00 EDT, Height, 127.4, kg, 05/17/22 4:58:00 EST, Dry Weight Start Date: 11/28/22 Status: Ordered mupirocin 2% topical ointment 1 application, Topically, 3 times a day, for 14 days, # 22 Gm, 3 Refills, Acute 01/20/23 16:10:00 EDT, 11/25/22 16:10:00 EDT, Ointment, [facility] #[id number], Partial fill upon patient request if the prescription is for a schedule II opioid drug... Start Date: 11/25/22 Stop Date: 01/20/23 Status: Ordered oxyCODONE 5 mg oral tablet 5 mg, 1, tablet, By Mouth, Every 8 hours, PRN, for 15 days, mass pat ok, ok for less. TAKE ONLY NEEDED, # 45 tablet, Refills 0, Tot. Refills 0, Hard Stop 12/07/22 14:29:00 EDT, Pain , Moderate, 11/22/22 14:29:00 EDT, Route to Pharmacy Electronic[facility]... Start Date: 11/22/22 Stop Date: 12/07/22 Status: Ordered oxyCODONE 5 mg oral tablet 5 mg, 1, tablet, By Mouth, Every 8 hours, PRN, mass pat ok, ok for less. TAKE ONLY NEEDED, # 45 tablet, Refills 0, Tot. Refills 0, Maintenance, Pain , Moderate, 12/04/22 20:21:00 EDT, Route to Pharmacy Electronically, [facility] #[id number], P... Start Date: 12/04/22 Stop Date: 12/19/22 Status: Ordered ProAir HFA 90 mcg/inh inhalation aerosol with adapter 2, puffs, Inhalation, Every 6 hours, PRN, # 8.5 Gm, Refills 5, Tot. Refills 5, 04/09/22 15:33:00 EST, Route to Pharmacy Electronically, [id number], [facility] #[id number], 176.8, cm, 02/28/22 10:47:00 EDT, Height, 123.4,... Start Date: 04/09/22 Status: Ordered Ventolin HFA 108 mcg/inh inhalation aerosol with adapter See Instructions, INHALE 2 PUFFS BY MOUTH EVERY 6 HOURS NEEDED, # 18 Gm, 0 Refills, Maintenance,11/29/22 9:18:00 EDT, [facility] #[id number], 176.8, cm, 11/05/22 11:22:00 EDT, Height, 127.4,kg, [...] Team Personnel Name: Margarito Berger MD Position: [facility] Physician - Primary Care Member Role: PCP Address: Address: [address] [place] [id number] Name: Bhumika Castillo RN Position: [facility] SN RN Member Role: Primary Care Nurse Name: Jaja Arshad RN Position: S RN Member Role: Primary Care Nurse Name: Ludwin Butcher RN Position: S RN Member Role: Primary Care Nurse Care Team Related Persons Name: GARRETT FUENTES Address: home [address] [place] [id number] Name: MARLO REINOSO Name: PT STS, NONE Name: EFFIE RICKETTS Name: RANDALL RICKETTS
--- OUTSIDE RECORDS SUMMARY | 2023-09-25 00:30 | XMS_ITS | Continuity of Care Document ---
Author Organization [facility] Address [address] [place] [address]- Care Team Providers Care Mold Bunch Trimmer Name Role Phone Ab FRAGA, Margarito Dolan Primary Care Physician Encounter [facility] [place] Date(s): 08/08/23 - 09/07/23 [facility] [address] [place] [address]- Allergies, Adverse Reactions, Alerts No Known Medication [...] tablet, 0 Refills, Maintenance, 05/28/23 8:20:00 EST, [facility] #[id number], 176.8, cm, 04/30/23 7:39:00 EST, Height, 127.4, kg, 05/17/22 4:58:00 EST, Dry Weight Start Date: 05/28/23 Stop Date: 06/07/23 Status: Ordered cyclobenzaprine 10 mg oral tablet 1, tablet, By Mouth, 3 times a day, PRN, # 60 tablet, Refills 0, Maintenance, NEEDED FOR SPASMS,08/18/23 12:16:00 EDT, Route to Pharmacy Electronically, [facility] #[id number], 176.8, cm, 04/30/23 7:39:00 EST, Height, 127.4, kg, 05/17/22 4:58... Start Date: 08/18/23 Status: Ordered diclofenac sodium 75 mg oral delayed release tablet 1 tablet, By Mouth, 2 times a day with meals, DIRECTED., # 60 tablet, 5 Refills, Maintenance, 07/01/23 20:55:00 EST, [facility] #[id number], 176.8, cm, 04/30/23 7:39:00 EST, Height, 127.4, kg, 05/17/22 4:58:00 EST, Dry Weight Start Date: 07/01/23 Status: Ordered doxycycline hyclate 100 mg oral tablet 1 tablet, By Mouth, 2 times a day, # 28 tablet, 0 Refills, Maintenance, 07/16/23 17:07:00 EDT, [facility] #70455, 176.8, cm, 04/30/23 7:39:00 EST, Height, 127.4, kg, 05/17/22 4:58:00 EST, Dry Weight Start Date: 07/16/23 Stop Date: 07/30/23 Status: Ordered EpiPen 2-Michael 0.3 mg injectable kit = 0.3 mg, Intramuscular, Once, PRN severe allergic reaction, may repeat if necessary, # 2 each, 0 Refills, Soft Stop, 01/24/23 12:05:00 EDT, [facility] #[id number], 176.8, cm, 01/24/23 10:59:00 EDT, Height, 127.4, kg, 05/17/22 4:58:00 EST, Dry We... Start Date: 01/24/23 Status: Ordered hydrOXYzine hydrochloride 50 mg oral tablet 1 tablet = 50 mg, By Mouth, 3 times a day, PRN as needed for itching, # 90 tablet, 1 Refills, Maintenance, 06/18/23 13:07:00 EST, [facility] #[id number], 176.8, cm, 04/30/23 7:39:00 EST, Height,127.4, kg, 05/17/22 4:58:00 EST, Dry Weight Start Date: 06/18/23 Status: Ordered hydrOXYzine hydrochloride 50 mg oral tablet 1 tablet = 50 mg, By Mouth, 3 times a day, # 90 tablet, 1 Refills, Maintenance, 04/25/23 11:23:00 EST, [facility] #[id number], 176.8, cm, 01/24/23 10:59:00 EDT, Height, 127.4, kg, 05/17/22 4:58:00 EST, Dry Weight Start Date: 04/25/23 Status: Ordered losartan 50 mg oral tablet 1 tablet, By Mouth, Daily, # 90 tablet, 1 Refills, Maintenance, 06/05/23 18:32:00 EST, [facility] #[id number], 176.8, cm, 04/30/23 7:39:00 EST, Height, 127.4, kg, 05/17/22 4:58:00 EST, Dry Weight Start Date: 06/05/23 Status: Ordered metFORMIN 750 mg oral tablet, extended release 1 tablet = 750 mg, By Mouth, Daily, # 90 tablet, 1 Refills, Maintenance, 05/19/23 11:12:00 EST, ER Tablet, [facility] #51109, Partial fill upon patient request if the prescription is for a schedule II opioid drug., 176.8, cm, 04/30/23 7:39:0... Start Date: 05/19/23 Status: Ordered mupirocin 2% topical ointment See Instructions, APPLY TOPICALLY TO THE AFFECTED AREA THREE TIMES DAILY FOR 14 DAYS, # 22 Gm, 0 Refills, Maintenance, 06/03/23 13:22:00 EST, [facility] #[id number], APPLY TOPICALLY TO THE AFFECTED AREA THREE [...] 09/07/23 14:05:00 EDT, Route to Pharmacy Electronically, [facility]... Start Date: 09/07/23 Stop Date: 09/22/23 Status: Ordered predniSONE 20 mg oral tablet See Instructions, 2 tablets By Mouth Daily for 5 days and then 1 tablet by mouth daily for 5 days, # 15 tablet, 0 Refills, Soft Stop, 01/08/23 16:53:00 EDT, Tablet, [facility] #[id number], Partial fill upon patient request if the prescription is... Start Date: 01/08/23 Status: Ordered triamcinolone 0.025% topical ointment 1 application, Topically, 3 times a day, Apply to affected area, # 15 Gm, 1 Refills, Maintenance, 06/03/23 9:33:00 EST, Ointment, [facility] #35202, Partial fill upon patient request if theprescription is for a schedule II opioid drug., 1 a... Start Date: 06/03/23 Status: Ordered Ventolin HFA 108 mcg/inh inhalation aerosol with adapter 2 puffs, Inhalation, Every 6 hours, # 18 Gm, 5 Refills, Maintenance, 05/25/23 6:11:00 EST, [facility] #[id number], 176.8, cm, 04/30/23 7:39:00 EST, Height, 127.4, [...] Team Personnel Name: Margarito Berger MD Position: [facility] Physician - Primary Care Member Role: PCP Address: Address: [address] [place] [id number] Name: Bhumika Castillo RN Position: [facility] SN RN Member Role: Primary Care Nurse Name: Jaja Arshad RN Position: [facility] RN Member Role: Primary Care Nurse Name: Ludwin Butcher RN Position: [facility] RN Member Role: Primary Care Nurse Care Team Related Persons Name: GARRETT FUENTES Address: home [address] [place] [address] Name: MARLO REINOSO Name: PT STS, NONE Name: EFFIE RICKETTS Name: RANDALL RICKETTS
--- OUTSIDE RECORDS SUMMARY | 2023-09-25 00:30 | XMS_ITS | Continuity of Care Document ---
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 Start Date: 01/08/21 Status: Ordered EpiPen 2-Michael 0.3 mg injectable kit = 0.3 mg, Intramuscular, Once, PRN severe allergic reaction, may repeat if necessary, # 2 each, 0 Refills, Soft Stop, 11/06/20 13:52:00 EDT, [facility] #[id number], 176.8, cm, 11/06/20 13:38:00 EDT, Height, 140.3, kg, 11/06/20 13:38:00 EDT, Dry W... Start Date: 11/06/20 Status: Ordered hydrOXYzine hydrochloride 50 mg oral tablet See Instructions, TAKE 1 TABLET BY MOUTH FOUR TIMES DAILY NEEDED FOR ANXIETY., # 40 tablet, 0 Refills, [facility] #[id number], 176.8, cm, 01/08/21 12:47:00 EDT, Height, 140.3, [...] 11/06/20 13:53:00 EDT, Route to Pharmacy Electronically, [facility] #[id number], 176.8, cm, 11/06/20 13:3... Start Date: 11/06/20 Status: Ordered Inhaler Spacer Inhaler Spacer , [...] 11/22/20 14:41:00 EDT, Route to Pharmacy Electronically, [facility] #[id number], Partial fill upon patientrequest if the prescription is for a schedule II op... Start Date: 11/22/20 Status: Ordered Problem List Condition Effective Dates Status Health Status Inform ant Adult BMI 40.0-44.9 kg/sq m(Confirmed) Active Chronic knee pain(Confirmed) Active Chronic low back pain(Confirmed) Active Daytime sleepiness(Confirmed) Active Hypertension(Confirmed) Active Morbid obesity(Confirmed) Active SKIP - Obstructive sleep apnea(Confirmed) Active Prediabetes(Confirmed) Active Diagnosis Diagnosis Type Effective Dates Health Status Clini сергей Service Informant Skin rash Discharge Diagnosis 01/08/21 Vital Signs Most recent to oldest [Reference Range]: 1 Height 176.8 cm (01/08/21 12:47 PM) Weight 142.9 kg (01/08/21 12:47 PM) Pulse Rate [55-90 bpm] 102 bpm *H* (01/08/21 12:47 PM) Body Mass Index [18.5-24.99] 45.72 *>HHI* (01/08/21 12:47 PM) Blood Pressure [90-138/55-84 mm Hg] 132/ 83mm Hg (01/08/21 12:47 PM) Blood pressure sites Arm, left (01/08/21 12:47 PM) Weight Obtained Via Standing scale (01/08/21 12:47 PM) Social History Social History Type Response Smoking Status 5-9 cigarettes (betw een 1/4 to 1/2 pack)/day in last 30 days; Tobacco use times per day: 7; entered on: 12/31/18 Sex
--- OUTSIDE RECORDS SUMMARY | 2023-09-25 00:30 | XMS_ITS | Continuity of Care Document ---
Author Organization [facility] Address [address] [place] [address]- Care Team Providers Care Automotive Dismantler Name Role Phone Ab FRAGA, Margarito Dolan Primary Care Physician Encounter [facility] Date(s): 05/31/21 - 06/30/21 [facility] [address] [place] [address]- Allergies, Adverse Reactions, Alerts No Known Medication [...] 0 Refills, Soft Stop, 11/06/20 13:52:00 EDT, [facility] #[id number], 176.8, cm, 11/06/20 13:38:00 EDT, Height, 140.3, kg, 11/06/20 13:38:00 EDT, Dry W... Start Date: 11/06/20 Status: Ordered hydrOXYzine hydrochloride 50 mg oral tablet 1 tablet, By Mouth, 4 times a day, PRN NEEDED FOR ANXIETY, # 40 tablet, 0 Refills, Physician Stop 07/07/21 10:51:00 EST, 06/27/21 10:50:00 EST, [facility] #[id number], 176.8, cm, 06/21/21 15:26:00 EST, Height, 140.3, kg, 11/06/20 13:38:00 EDT,... Start Date: 06/27/21 Stop Date: 07/07/21 Status: Ordered ibuprofen 800 mg oral tablet 800 mg, 1, tablet, By Mouth, 3 times a day, PRN, with food or milk, # 90 tablet, Refills 0, Tot. Refills 0, Maintenance, NEEDED FOR PAIN, 06/27/21 10:52:00 EST, Route to Pharmacy Electronically, [facility] #[id number], 176.8, cm, 06/21/21 15:2... Start Date: 06/27/21 [...] 02/26/21 14:39:00 EDT, Route to Pharmacy Electronically, [facility] #[id number], Partial fill upon patientrequest if the prescription is for a schedule II op... Start Date: 02/26/21 Stop Date: 05/27/21 Status: Ordered losartan 50 mg oral tablet 1 tablet = 50 mg, By Mouth, Daily, for 30 days, # 30 tablet, 5 Refills, Physician Stop 10/13/21 14:50:00 EDT, 04/16/21 14:50:00 EST, [facility] #[id number], 176.8, cm, 02/01/21 16:07:00 EDT, Height, 140.3, kg, 11/06/20 13:38:00 EDT, Dry Weight Start Date: 04/16/21 Stop Date: 10/13/21 Status: Ordered metFORMIN 750 mg oral tablet, extended release 1 tablet, By Mouth, Daily, # 60 tablet, 5 Refills, [facility] #[id number], 176.8, cm, 02/02/2116:07:00 EDT, Height, 140.3, kg, 11/06/20 13:38:00 EDT, Dry Weight Start Date: 03/30/21 Status: Ordered oxyCODONE 5 mg oral tablet 5 mg, 1, tablet, By Mouth, Every 8 hours, PRN, Take only as needed, # 45 tablet, Refills 0, Tot. Refills 0, Maintenance, Pain , Moderate, 06/20/21 15:50:00 EST, Route to Pharmacy Electronically, [facility] #[id number], Partial fill upon patient r... Start Date: 06/20/21 Status: Ordered phentermine 30 mg oral capsule [...] Gm, Refills 5, Route to Pharmacy Electronically, [id number], [facility] #[id number], 176.8, cm, 05/18/21 14:17:00 EST, Height, 140.3, kg, 11/06/20 13:38:00 EDT, Dry Weight Start Date: 06/13/21 Status: Ordered triamcinolone 0.1% topical cream See Instructions, APPLY TOPICALLY TO THE AFFECTED AREA ON ARMS AND LEGS THREE TIMES DAILY. MIX WITH16 OUNCES OF EUCERIN CREAM, # 80 Gm, 0 Refills, [facility] #[id number], 14, APPLY TOPICALLY TOTHE AFFECTED AREA ON [...]
--- OUTSIDE RECORDS SUMMARY | 2023-09-25 00:30 | XMS_ITS | Continuity of Care Document ---
Author Organization [facility] Address [address] [place] [address]- Care Team Providers Care Access Service Representative Name Role Phone Ab FRAGA, Margarito Dolan Primary Care Physician [place] [facility] [place] 08/14/23 - 09/13/23 [facility] [address] [place] [address]- Allergies, Adverse Reactions, Alerts No Known Medication Allergies Substance Reaction Severity Status Seafood Active Other Food Allergy tuna fish Active Immunizations Given and Recorded Vaccine Date Status Refusal Reason SARS-CoV-2 (COVID-19) mRNA BNT-162b2 vac 05/14/21 Recorded SARS-CoV-2 (COVID-19) mRNA BNT-162b2 vac 09/17/20 Recorded SARS-CoV-2 (COVID-19) mRNA BNT-162b2 vac 08/27/20 Recorded tetanus/diphtheria/pertussis, acel(Tdap) 01/23/11 Given Medications amoxicillin 500 mg oral capsule 4 capsule = 2,000 mg, By Mouth, Once, given 1 hour prior to the procedure, # 4 capsule, 2 Refills, Soft Stop, 09/10/23 10:59:00 EDT, [facility] #[id number], Partial fill upon patient request if the prescription is for a schedule II opioid drug.,... Start Date: 09/10/23 Status: Ordered cyclobenzaprine 10 mg oral tablet 1, tablet, By Mouth, 3 times a day, PRN, # 270 tablet, Refills 1, Tot. Refills 1, Maintenance, NEEDED FOR SPASMS, 09/10/23 11:17:00 EDT, Route to Pharmacy Electronically, [facility] #[id number], 176.8, cm, 09/10/23 10:40:00 EDT, Height, 127.4,... Start Date: 09/10/23 Stop Date: 03/08/24 Status: Ordered diclofenac sodium 75 mg oral delayed release tablet 1 tablet, By Mouth, 2 times a day with meals, DIRECTED., # 60 tablet, 5 Refills, Maintenance, 07/01/23 20:55:00 EST, [facility] #[id number], 176.8, cm, 04/30/23 7:39:00 EST, Height, 127.4, kg, 05/17/22 4:58:00 EST, Dry Weight Start Date: 07/01/23 Status: Ordered EpiPen 2-Michael 0.3 mg injectable kit = 0.3 mg, Intramuscular, Once, PRN severe allergic reaction, may repeat if necessary, # 2 each, 0 Refills, Soft Stop, 01/24/23 12:05:00 EDT, [facility] #[id number], 176.8, cm, 01/24/23 10:59:00 EDT, Height, 127.4, kg, 05/17/22 4:58:00 EST, Dry We... Start Date: 01/24/23 Status: Ordered losartan 50 mg oral tablet 1 tablet, By Mouth, Daily, # 90 tablet, 1 Refills, Maintenance, 06/05/23 18:32:00 EST, [facility] #[id number], 176.8, cm, 04/30/23 7:39:00 EST, Height, 127.4, kg, 05/17/22 4:58:00 EST, Dry Weight Start Date: 06/05/23 Status: Ordered oxyCODONE 5 mg oral tablet 5 mg, 1, tablet, By Mouth, Every 8 hours, PRN, mass pat ok, ok for less. TAKE ONLY NEEDED DNF 09/09/2023, # 45 tablet, Refills 0, Tot. Refills 0, Maintenance, Pain , Moderate, 09/07/23 14:05:00 EDT, Route to Pharmacy Electronically, [facility]... Start Date: 09/07/23 Stop Date: 09/22/23 Status: Ordered Ventolin HFA 108 mcg/inh inhalation aerosol with adapter 2 puffs, Inhalation, Every 6 hours, # 18 Gm, 5 Refills, Maintenance, 05/25/23 6:11:00 EST, [facility] #[id number], 176.8, cm, 04/30/23 7:39:00 EST, Height, 127.4, kg, 05/17/22 4:58:00 EST, Dry Weight Start Date: 05/25/23 Status: Ordered Problem List Condition Confirmation Course Effective Dates Status Health St atus Informant Prophylactic antibiotic Confirmed Active Chronic knee pain Confirmed Active [...] Name: Margarito Berger MD Position: [facility] Physician - Primary Care Member Role: PCP Address: Address: [address] [place] [address] Name: Bhumika Castillo RN Position: [facility] SN RN Member Role: Primary Care Nurse Name: Jaja Arshad RN Position: [facility] RN Member Role: Primary Care Nurse Name: Ludwin Butcher RN Position: [facility] RN Member Role: Primary Care Nurse Care Team Related Persons Name: GARRETT FUENTES Address: home [address] [place] [address] Name: MARLO REINOSO Name: PT STS, NONE Name: EFFIE RICKETTS Name: RANDALL RICKETTS
--- OUTSIDE RECORDS SUMMARY | 2023-09-25 00:30 | XMS_ITS | Continuity of Care Document ---
Author Organization [facility] Address [address] [place] [address]- Care Team Providers Care Vault Person Name Role Phone Margarito Berger MD Primary Care Physician En[place] [facility] [place] Date(s): 06/10/22 - 07/10/22 [facility] [address] [place] [address]- Allergies, Adverse Reactions, Alerts No Known Medication [...] tablet, Refills 0, Tot. Refills 0, Acute 07/15/22 17:28:00 EDT, 07/01/22 17:28:00 EST, Route to Pharmacy Electronically, [facility] #[id number], Partial fill upon patient re... Start Date: 07/01/22 Stop Date: 07/15/22 Status: Ordered EpiPen 2-Michael 0.3 mg injectable kit = 0.3 mg, Intramuscular, Once, PRN severe allergic reaction, may repeat if necessary, # 2 each, 0 Refills, Soft Stop, 11/06/20 13:52:00 EDT, [facility] #[id number], 176.8, cm, 11/06/20 13:38:00 EDT, Height, 140.3, kg, 11/06/20 13:38:00 EDT, Dry W... Start Date: 11/06/20 Status: Ordered hydrOXYzine hydrochloride 50 mg oral tablet See Instructions, TAKE 1 TABLET BY MOUTH FOUR TIMES DAILY FOR 12 DAYS NEEDED FOR ANXIETY, # 48 tablet, 0 Refills, Maintenance, 06/14/22 15:46:00 EST, [facility] #[id number], 176.8, cm, 05/01/22 13:41:00 EST, Height, 127.4, kg, 05/17/22 4:58:00... Start Date: 06/14/22 Status: Ordered hydrOXYzine hydrochloride 50 mg oral tablet See Instructions, TAKE 1 TABLET BY MOUTH FOUR TIMES DAILY FOR 12 DAYS NEEDED FOR ANXIETY, # 48 tablet, 0 Refills, Maintenance, 07/01/22 17:28:00 EST, [facility] #[id number], 176.8, cm, 05/01/22 13:41:00 EST, Height, 127.4, [...] tablet, 1 Refills, Maintenance, 06/03/22 11:27:00 EST, [facility] #[id number], 176.8, cm, 05/01/22 13:41:00 EST, Height, 127.4, [...] Tot. Refills 0, Maintenance, Pain , Moderate, 07/09/22 9:41:00 EDT, Route to Pharmacy Electronically, [facility] #[id number], P... Start Date: 07/09/22 Stop Date: 08/08/22 Status: Ordered oxyCODONE 5 mg oral tablet 5 mg, 1, tablet, By Mouth, Every 8 hours, PRN, for 30 days, mass pat ok, ok for less. Take only as needed., # 45 tablet, Refills 0, Tot. Refills 0, Hard Stop 07/25/22 8:16:00 EDT, Pain , Moderate, 06/25/22 8:16:00 EST, Route to Pharmacy Electronically... Start Date: 06/25/22 Stop Date: 07/25/22 Status: Ordered oxyCODONE 5 mg oral tablet 5 mg, 1, tablet, By Mouth, Every 8 hours, PRN, for 30 days, mass pat ok, ok for less. Take only as needed., # 45 tablet, Refills 0, Tot. Refills 0, Hard Stop 07/11/22 15:52:00 EDT, Pain , Moderate, 06/11/22 15:52:00 EST, Route to Pharmacy Electronical... Start Date: 06/11/22 Stop Date: 07/11/22 Status: Ordered pantoprazole 40 mg oral delayed release tablet = 40 mg, By Mouth, Daily in AM, 0 Refills, Maintenance, 05/18/22 7:55:00 EST, [facility] Table[facility] Start Date: 05/18/22 Status: Ordered ProAir HFA 90 mcg/inh inhalation aerosol with adapter 2, puffs, Inhalation, Every 6 hours, PRN, # 8.5 Gm, Refills 5, Tot. Refills 5, 04/09/22 15:33:00 EST, Route to Pharmacy Electronically, [id number], [id number], 176.8, cm, 02/28/22 10:47:00 EDT, Height, 123.4,... [...] Team Personnel Name: Margarito Berger MD Position: [facility] Primary Care Physician Member Role: PCP Address: Address: [address] [place] [address] Name: Bhumika Castillo RN Position: [facility] SN RN Member Role: Primary Care Nurse Name: Jaja Arshad RN Position: [facility] RN Member Role: Primary Care Nurse Name: Ludwin Butcher RN Position: [facility] RN Member Role: Primary Care Nurse Care Team Related Persons Name: GARRETT FUENTES Address: home [address] [place] [id number] Name: MARLO REINOSO Name: PT STS, NONE Name: EFFIE RICKETTS Name: RANDALL RICKETTS
--- OUTSIDE RECORDS SUMMARY | 2023-09-25 00:30 | XMS_ITS | Continuity of Care Document ---
Author Organization [facility] Address [address] [place] [address]- Care Team Providers Care Surveillance Director Name Role Phone Jorge Luis FRAGA, Tra Dolan Primary Care Physician [phone] Encounter [facility] [place] Date(s): 09/09/19 - 10/09/19 [facility] [address] [place] [address]- [place] Attending Physician: Admtr, [id number] Admitting Physician: Admtr, [...] 09/05/2010:22:00 EDT, [facility]eros[facility], Route to Pharmacy Electronically, [id number], [facility] #[id number], 176.8, cm, 12/31/18 14:22:0... Start Date: 09/06/19 [...] 13:34:23 EDT Start Date: 09/03/17 Status: Ordered ibuprofen 800 mg oral tablet 1 tablet = 800 mg, By Mouth, 3 times a day, PRN as needed for pain, with food or milk, # 90 tablet,5 Refills, Maintenance, Tablet, 1 tablet By Mouth 3 times a day,PRN:as needed for pain,Instr:with food or milk Start Date: 03/08/13 Status: Ordered Problem List Condition Effective Dates [...]
--- OUTSIDE RECORDS SUMMARY | 2023-09-25 00:30 | XMS_ITS | Continuity of Care Document ---
Author Organization [facility] Address [address] [place] [address]- Care Team Providers Care Environmental Protection Inspector Name Role Phone Margarito Berger MD Primary Care Physician Encounter [facility] Date(s): 09/06/22 - 10/06/22 [facility] [address] [place] [address]- Allergies, Adverse Reactions, Alerts No Known Medication [...] 10/02/22 12:16:00 EDT, Route to Pharmacy Electronically, [facility] #[id number], Partial fill upon patient request if the prescription is... Start Date: 10/02/22 Status: Ordered EpiPen 2-Michael 0.3 mg injectable kit = 0.3 mg, Intramuscular, Once, PRN severe allergic reaction, may repeat if necessary, # 2 each, 0 Refills, Soft Stop, 11/06/20 13:52:00 EDT, [facility] #[id number], 176.8, cm, 11/06/20 13:38:00 EDT, Height, 140.3, kg, 11/06/20 13:38:00 EDT, Dry W... Start Date: 11/06/20 Status: Ordered hydrOXYzine hydrochloride 50 mg oral tablet 1 tablet = 50 mg, By Mouth, 3 times a day, # 60 tablet, 1 Refills, Maintenance, 09/09/22 9:32:00 EDT, [facility] #[id number], 176.8, cm, 09/02/22 16:24:00 EDT, Height, 127.4, kg, 05/17/22 4:58:00 EST, Dry Weight Start Date: 09/09/22 Status: Ordered hydrOXYzine hydrochloride 50 mg oral tablet See Instructions, TAKE 1 TABLET BY MOUTH FOUR TIMES DAILY FOR 12 DAYS NEEDED FOR ANXIETY, # 48 tablet, 0 Refills, Maintenance, 06/14/22 15:46:00 EST, [facility] #[id number], 176.8, cm, 05/01/22 13:41:00 EST, Height, 127.4, kg, 05/17/22 4:58:00... Start Date: 06/14/22 Status: Ordered hydrOXYzine hydrochloride 50 mg oral tablet See Instructions, TAKE 1 TABLET BY MOUTH FOUR TIMES DAILY FOR 12 DAYS NEEDED FOR ANXIETY, # 48 tablet, 0 Refills, Maintenance, 07/01/22 17:28:00 EST, [facility] #[id number], 176.8, cm, 05/01/22 13:41:00 EST, Height, 127.4, [...] 08/27/22 20:18:00 EDT, Route to Pharmacy Electronically, [facility] #[id number], 176.8, cm, 05/01/22 13:41... Start Date: 08/27/22 [...] tablet, 1 Refills, Maintenance, 06/03/22 11:27:00 EST, [facility] #[id number], 176.8, cm, 05/01/22 13:41:00 EST, Height, 127.4, [...] Tot. Refills 0, Maintenance, Pain , Moderate, 09/26/22 16:21:00 EDT, Route to Pharmacy Electronically, [facility] #[id number], P... Start Date: 09/26/22 Stop Date: 10/11/22 Status: Ordered pantoprazole 40 mg oral delayed release tablet = 40 mg, By Mouth, Daily in AM, 0 Refills, Maintenance, 05/18/22 7:55:00 EST, [facility] Tablet Start Date: 05/18/22 Status: Ordered ProAir HFA 90 mcg/inh inhalation aerosol with adapter 2, puffs, Inhalation, Every 6 hours, PRN, # 8.5 Gm, Refills 5, Tot. Refills 5, 04/09/22 15:33:00 EST, Route to Pharmacy Electronically, [id number], [facility] #[id number], 176.8, cm, 02/28/22 10:47:00 EDT, Height, 123.4,... [...] List Condition Confirmation Course Effective Dates Status [facility] atus Informant Adjustment disorder Confirmed Active [...] Personnel Name: Margarito Berger MD Position: S Physician - Primary Care Member Role: PCP Address: Address: [address] [place] [address] Name: Bhumika Castillo RN Position: [facility] SN RN Member Role: Primary Care Nurse Name: Jaja Arshad RN Position: S RN Member Role: Primary Care Nurse Name: Ludwin Butcher RN Position: [facility] RN Member Role: Primary Care Nurse Care Team Related Persons Name: GARRETT FUENTES Address: home [address] [place] [id number] Name: MARLO REINOSO Name: PT STS, NONE Name: EFFIE RICKETTS Name: RANDALL RICKETTS
--- OUTSIDE RECORDS SUMMARY | 2023-09-25 00:30 | XMS_ITS | Continuity of Care Document ---
Author Organization [facility] Address [address] [place] [address]- Care Team Providers Care Umbrella Frame Maker Name Role Phone Margarito Berger MD Primary Care Physician Encounter [facility] Date(s): 04/30/23 - 05/07/23 [facility] [address] [place] [address]- Encounter Diagnosis Severe obesity (BMI 35.0-39.9) with comorbidity(Discharge Diagnosis) - 04/30/23 Nasal septum perforation(Discharge Diagnosis) - 04/30/23 Prediabetes(Discharge Diagnosis) - 04/30/23 Attending Physician: Margarito Berger MD Allergies, Adverse [...] 05/10/23 8:25:00 EST, 04/30/23 8:25:00 EST, Tablet, [facility] #[id number], Partial fill upon patient request if the prescription is for a schedule II opioid d... Start Date: 04/30/23 Stop Date: 05/10/23 Status: Ordered cyclobenzaprine 10 mg oral tablet 10 mg, 1, tablet, By Mouth, 3 times a day, PRN spasms, # 60 tablet, Refills 0, Tot. Refills 0, Maintenance, 05/02/23 11:36:00 EST, Route to Pharmacy Electronically, [facility] #[id number], Partial fill upon patient request if the prescription is... Start Date: 05/02/23 Status: Ordered diclofenac sodium 75 mg oral delayed release tablet 1 tablet, By Mouth, 2 times a day with meals, DIRECTED., # 60 tablet, 1 Refills, Maintenance, 05/04/23 6:22:00 EST, [facility] #[id number], 176.8, cm, 04/30/23 7:39:00 EST, Height, 127.4, kg,05/17/22 4:58:00 EST, Dry Weight Start Date: 05/04/23 Status: Ordered doxycycline hyclate 100 mg oral tablet See Instructions, TAKE 1 TABLET BY MOUTH TWICE DAILY FOR 14 DAYS, # 28 tablet, 0 Refills, Maintenance, 04/10/23 14:15:00 EST, [facility] #[id number], 176.8, cm, 01/24/23 10:59:00 EDT, Height, 127.4, kg, 05/17/22 4:58:00 EST, Dry Weight Start Date: 04/10/23 Status: Ordered EpiPen 2-Michael 0.3 mg injectable kit = 0.3 mg, Intramuscular, Once, PRN severe allergic reaction, may repeat if necessary, # 2 each, 0 Refills, Soft Stop, 01/24/23 12:05:00 EDT, [facility] #[id number], 176.8, cm, 01/24/23 10:59:00 EDT, Height, 127.4, kg, 05/17/22 4:58:00 EST, Dry We... Start Date: 01/24/23 Status: Ordered hydrOXYzine hydrochloride 50 mg oral tablet 1 tablet = 50 mg, By Mouth, 3 times a day, # 90 tablet, 1 Refills, Maintenance, 04/25/23 11:23:00 EST, [facility] #[id number], 176.8, cm, 01/24/23 10:59:00 EDT, Height, 127.4, kg, 05/17/22 4:58:00 EST, Dry Weight Start Date: 04/25/23 Status: Ordered hydrOXYzine hydrochloride 50 mg oral tablet See Instructions, TAKE 1 TABLET BY MOUTH THREE TIMES DAILY, # 90 tablet, 0 Refills, Maintenance, 04/25/23 14:10:00 EST, [facility] #[id number], 176.8, cm, 01/24/23 10:59:00 EDT, Height, 127.4, kg, 05/17/22 4:58:00 EST, Dry Weight Start Date: 04/25/23 Status: Ordered losartan 50 mg oral tablet 1 tablet, By Mouth, Daily, # 90 tablet, 1 Refills, Maintenance, 11/28/22 21:33:00 EDT, [facility] #[id number], 176.8, cm, 11/05/22 11:22:00 EDT, Height, 127.4, kg, 05/17/22 4:58:00 EST, Dry Weight Start Date: 11/28/22 Status: Ordered mupirocin 2% topical ointment See Instructions, APPLY TOPICALLY TO THE AFFECTED AREA THREE TIMES DAILY FOR 14 DAYS, # 22 Gm, 0 Refills, Maintenance, 03/27/23 8:33:00 EST, [facility] #[id number], 10, APPLY TOPICALLY TO THE AFFECTED AREA THREE TIMES DAILY FOR 14 DAYS, 176.8, cm... Start Date: 03/27/23 Status: Ordered oxyCODONE 5 mg oral tablet 5 mg, 1, tablet, By Mouth, Every 8 hours, PRN, mass pat ok, ok for less. TAKE ONLY NEEDED, # 45 tablet, Refills 0, Tot. Refills 0, Maintenance, Pain , Moderate, 04/25/23 11:23:00 EST, Route to Pharmacy Electronically, [facility] #[id number], P... Start Date: 04/25/23 Stop Date: 05/10/23 Status: Ordered predniSONE 20 mg oral tablet See Instructions, 2 tablets By Mouth Daily for 5 days and then 1 tablet by mouth daily for 5 days, # 15 tablet, 0 Refills, Soft Stop, 01/08/23 16:53:00 EDT, Tablet, [facility] #[id number], Partial fill upon patient request if the prescription is... Start Date: 01/08/23 Status: Ordered Ventolin HFA 108 mcg/inh inhalation aerosol with adapter 2 puffs, Inhalation, Every 6 hours, # 8.5 Gm, 6 Refills, Maintenance, 12/23/22 11:39:00 EDT, [facility] #[id number], 176.8, cm, 12/23/22 11:25:00 EDT, Height, 127.4, [...] Effective Dates Health Status Clinical Service Informant Severe obesity (BMI 35.0-39.9) with comorbidity Discharge Diagnosis 04/30/23 Nasal septum perforation Discharge Diagnosis 04/30/23 Prediabetes Discharge Diagnosis 04/30/23 Vital Signs Most recent to oldest [Reference Range]: 1 Height 176.8 cm (04/30/23 7:39 AM) Weight 126 kg (04/30/23 7:39 AM) Oxygen Saturation [94-100 %] 96 % (04/30/23 7:39 AM) Pulse Rate [55-90 bpm] 102 bpm *H* (04/30/23 7:39 AM) Body Mass Index [18.5-24.99 kg/m2] 40.31 kg/m2 *>HHI* (04/30/23 7:39 AM) Blood Pressure [90-138/55-84 mm Hg] 138/ 87mm Hg (04/30/23 7:39 AM) Mode of Delivery (Oxygen) Room air (04/30/23 7:39 AM) Blood pressure sites Arm, left (04/30/23 7:39 AM) Weight Obtained Via Standing scale (04/30/23 7:39 AM) Social History Social History Type Response Smoking Status 5-9 cigarettes (betw een 1/4 to 1/2 pack)/day in last 30 days; Tobacco use times per day: 7; entered on: 12/31/18 Sex Patient Care team information Care Team Personnel Name: Margarito Berger MD Position: [facility] Physician - Primary Care Member Role: PCP Address: Address: [address] [place] [id number] Name: Bhumika Castillo RN Position: [facility] SN RN Member Role: Primary Care Nurse Name: Jaja Arshad RN Position: [facility] RN Member Role: Primary Care Nurse Name: Ludwin Butcher RN Position: [facility] RN Member Role: Primary Care Nurse Care Team Related Persons Name: GINA GARRETT Address: home [address] [place] [address] Name: MARLO REINOSO Name: PT STS, NONE Name: EFFIE RICKETTS Name: RANDALL RICKETTS
--- OUTSIDE RECORDS SUMMARY | 2023-09-25 00:30 | XMS_ITS | Continuity of Care Document ---
Author Organization [facility] Address [address] [place] [address]- Care Team Providers Care [facility] Social Worker Name Role Phone Margarito Berger MD Primary Care Physician Encounter [facility] Date(s): 04/24/22 - 05/24/22 [facility] [address] [place] [address]- Allergies, Adverse Reactions, Alerts No Known Medication [...] 05/25/22 7:52:00 EST, 05/18/22 7:52:00 EST, Capsule, [facility], Partial fill upon patient request [...] 05/18/22 7:52:00 EST, Route to Pharmacy Electronically, [facility], Partial fill upon patient request... Start Date: 05/18/22 Stop Date: 06/01/22 Status: Ordered Dilaudid 2 mg oral tablet See Instructions, PRN Pain , Severe, 1-2 tablet By Mouth Every 4 hours, # 84 tablet, 0 Refills, Acute 05/25/22 7:52:00 EST, 05/18/22 7:51:00 EST, Tablet, [facility], Partial fill upon patient request if the prescription is for a schedule... Start Date: 05/18/22 Stop Date: 05/25/22 Status: Ordered EpiPen 2-Michael 0.3 mg injectable kit = 0.3 mg, Intramuscular, Once, PRN severe allergic reaction, may repeat if necessary, # 2 each, 0 Refills, Soft Stop, 11/06/20 13:52:00 EDT, [facility] #[id number], 176.8, cm, 11/06/20 13:38:00 EDT, Height, 140.3, [...] tablet, By Mouth, Daily, # 30 tablet, 3 Refills, Maintenance, 05/20/22 11:48:00 EST, [facility] #[id number], 176.8, cm, 05/01/22 13:41:00 EST, Height, 127.4, kg, 05/17/22 4:58:00 EST, Dry Weight Start Date: 05/20/22 Status: Ordered MiraLax Powder 1 pack/packet = [...] 04/09/22 15:33:00 EST, Route to Pharmacy Electronically, [id number], [facility] #[id number], 176.8, cm, 02/28/22 10:47:00 EDT, Height, 123.4,... [...] 05/25/22 7:51:00 EST, 05/18/22 7:51:00 EST, Tablet, [facility], Partial fill upon patient request if [...] Berger MD Position: [facility] Primary Care Physician Member Role: PCP Address: Address: [address] [place] [address]- Name: Bhumika Castillo RN Position: [facility] RN Member Role: Primary Care Nurse Name: Jaja Arshad RN Position: S RN Member Role: Primary Care Nurse Name: Ludwin Butcher RN Position: S RN Member Role: Primary Care Nurse Care Team Related Persons Name: GARRETT FUENTES Address: home [address] [place] [id number] Name: MARLO REINOSO Name: PT STS, NONE Name: EFFIE RICKETTS Name: RANDALL RICKETTS
--- OUTSIDE RECORDS SUMMARY | 2023-09-25 00:30 | XMS_ITS | Continuity of Care Document ---
Author Organization [facility] Address [address] [place] [address] [address] [place] [address]- Care Team Providers Care Cargo Router Name Role Phone Ab FRAGA, Margarito Dolan Primary Care Physician Encounter [facility] Date(s): 12/10/22 - 01/09/[address] [place] [address]- Attending Physician: AdmJayden [id number] Admitting Physician: AdmtrLona Referring Physician: Admtr, Ar8 Allergies, Adverse Reactions, [...] 12/31/22 7:50:00 EDT, Route to Pharmacy Electronically, [facility] #[id number], Partial fill upon patient request if the prescription is f... Start Date: 12/31/22 Status: Ordered diclofenac sodium 75 mg oral delayed release tablet See Instructions, TAKE 1 TABLET BY MOUTH TWICE DAILY WITH FOOD DIRECTED, # 60 tablet, 1 Refills,12/16/22 0:00:00 EDT, [facility] #[id number], 176.8, cm, 12/09/22 9:21:00 EDT, Height, 127.4, kg, 05/17/22 4:58:00 EST, Dry Weight Start Date: 12/16/22 Status: Ordered EpiPen 2-Michael 0.3 mg injectable kit = 0.3 mg, Intramuscular, Once, PRN severe allergic reaction, may repeat if necessary, # 2 each, 0 Refills, Soft Stop, 11/06/20 13:52:00 EDT, [facility] #[id number], 176.8, cm, 11/06/20 13:38:00 EDT, Height, 140.3, kg, 11/06/20 13:38:00 EDT, Dry W... Start Date: 11/06/20 Status: Ordered hydrOXYzine hydrochloride 50 mg oral tablet 1 tablet = 50 mg, By Mouth, 3 times a day, # 60 tablet, 1 Refills, Maintenance, 12/16/22 12:01:00 EDT, [facility] #[id number], 176.8, cm, 12/09/22 9:21:00 EDT, Height, 127.4, kg, 05/17/22 4:58:00 EST, Dry Weight Start Date: 12/16/22 Status: Ordered ibuprofen 800 mg oral tablet 1, tablet, By Mouth, 3 times a day, PRN, TAKE WITH FOOD OR MILK., # 90 tablet, Refills 5, Tot. Refills 5, Maintenance, NEEDED FOR PAIN(, 08/27/22 20:18:00 EDT, Route to Pharmacy Electronically, [facility] #[id number], 176.8, cm, 05/01/22 13:41... Start Date: 08/27/22 Status: Ordered losartan 50 mg oral tablet 1 tablet, By Mouth, Daily, # 90 tablet, 1 Refills, Maintenance, 11/28/22 21:33:00 EDT, [facility] #[id number], 176.8, cm, 11/05/22 11:22:00 EDT, Height, 127.4, kg, 05/17/22 4:58:00 EST, Dry Weight Start Date: 11/28/22 Status: Ordered mupirocin 2% topical ointment 1 application, Topically, 3 times a day, for 14 days, # 22 Gm, 3 Refills, Acute 01/20/23 16:10:00 EDT, 11/25/22 16:10:00 EDT, Ointment, [email or web address] #[id number], Partial fill upon patient request if the [...] 01/07/23 14:25:00 EDT, Route to Pharmacy Electronically, [facility] #[id number], P... Start Date: 01/07/23 Stop Date: 01/22/23 Status: Ordered oxyCODONE 5 mg oral tablet 5 mg, 1, tablet, By Mouth, Every 8 hours, Was only able to get partial fill (16 tablets) from [facility]; mass pat Ok, # 29 tablet, Refills [...] 01/07/23 7:30:00 EDT, Route to Pharmacy Electronically, [facility] #[id number], Partial fill upon patient request if t... Start Date: 01/07/23 Stop Date: 01/26/23 Status: Ordered predniSONE 20 mg oral tablet See Instructions, 2 tablets By Mouth Daily for 5 days and then 1 tablet by mouth daily for 5 days, # 15 tablet, 0 Refills, Soft Stop, 01/08/23 16:53:00 EDT, Tablet, [facility] #[id number], Partial fill upon patient request if the prescription is... Start Date: 01/08/23 Status: Ordered ProAir HFA 90 mcg/inh inhalation aerosol with adapter 2, puffs, Inhalation, Every 6 hours, PRN, # 8.5 Gm, Refills 5, Tot. Refills 5, 04/09/22 15:33:00 EST, Route to Pharmacy Electronically, [id number], [facility] #[id number], 176.8, cm, 02/28/22 10:47:00 EDT, Height, 123.4,... Start Date: 04/09/22 Status: Ordered Ventolin HFA 108 mcg/inh inhalation aerosol with adapter 2 puffs, Inhalation, Every 6 hours, # 8.5 Gm, 6 Refills, Maintenance, 12/23/22 11:39:00 EDT, [facility] #[id number], 176.8, cm, 12/23/22 11:25:00 EDT, Height, 127.4, kg, 05/17/22 4:58:00 EST, Dry Weight Start Date: 12/23/22 Stop Date: 07/21/23 Status: Ordered Problem List Condition Confirmation Course Effective Dates Status [facility] atus Informant Adjustment disorder Confirmed [...] Primary Care Member Role: PCP Address: Address: [address] [place] [address] Name: Bhumika Castillo RN Position: [facility] SN RN Member Role: Primary Care Nurse Name: Jaja Arshad RN Position: [facility] RN Member Role: Primary Care Nurse Name: Ludwin Butcher RN Position: [facility] RN Member Role: Primary Care Nurse Care Team Related Persons Name: GARRETT FUENTES Address: home [address] [place] [address] Name: MARLO REINOSO Name: PT STS, NONE Name: EFFIE RICKETTS Name: RANDALL RICKETTS
--- OUTSIDE RECORDS SUMMARY | 2023-09-25 00:31 | XMS_ITS | Continuity of Care Document ---
Author Organization [facility] Address [address] [place] [address]- Care Team Providers Care Network Technical Analyst Name Role Phone Tra Kang MD Primary Care Physician Encounter [facility] Date(s): 08/17/19 - 10/09/19 [facility] [address] [place] [address]- [facility] Attending Physician: Tra Kang MD Allergies, Adverse [...] 09/05/2010:22:00 EDT, Aerosol, Route to Pharmacy Electronically, [id number], [facility] #[id number], 176.8, cm, 12/31/18 14:22:0... Start Date: 09/06/19 [...]
--- OUTSIDE RECORDS SUMMARY | 2023-09-25 00:31 | XMS_ITS | Continuity of Care Document ---
Author Organization [facility] Address [address] [place] [address]- Care Team Providers Care Plc Engineer Name Role Phone Ab FRAGA, Margarito Dolan Primary Care Physician Encounter [facility] Date(s): 01/29/23 - 02/28/23 [facility] [address] [place] [address]- Encounter Diagnosis Skin lesion(Discharge Diagnosis) - 01/30/23 Allergies, Adverse Reactions, Alerts No Known Medication [...] days, # 20 tablet, 0 Refills, Acute 03/07/23 16:27:00 EST, 02/25/23 16:27:00 EDT, Tablet, [facility] #[id number], Partial fill upon patient request if the prescription is for a schedule II opioid... Start Date: 02/25/23 Stop Date: 03/07/23 Status: Ordered cyclobenzaprine 10 mg oral tablet 10 mg, 1, tablet, By Mouth, 3 times a day, PRN spasms, # 60 tablet, Refills 0, Tot. Refills 0, Maintenance, 02/27/23 17:04:00 EDT, Route to Pharmacy Electronically, [facility] #[id number], Partial fill upon patient request if the prescription is... Start Date: 02/27/23 Status: Ordered diclofenac sodium 75 mg oral delayed release tablet See Instructions, TAKE 1 TABLET BY MOUTH TWICE DAILY WITH FOOD DIRECTED, # 60 tablet, 0 Refills,01/29/23 13:09:00 EDT, [facility] #[id number], 176.8, cm, 01/24/23 10:59:00 EDT, Height, 127.4, kg, 05/17/22 4:58:00 EST, Dry Weight Start Date: 01/29/23 Status: Ordered EpiPen 2-Michael 0.3 mg injectable kit = 0.3 mg, Intramuscular, Once, PRN severe allergic reaction, may repeat if necessary, # 2 each, 0 Refills, Soft Stop, 01/24/23 12:05:00 EDT, [facility] #[id number], 176.8, cm, 01/24/23 10:59:00 EDT, Height, 127.4, kg, 05/17/22 4:58:00 EST, Dry We... Start Date: 01/24/23 Status: Ordered hydrOXYzine hydrochloride 50 mg oral tablet 1 tablet = 50 mg, By Mouth, 3 times a day, # 90 tablet, 1 Refills, Maintenance, 02/12/23 8:08:00 EDT, [facility] #[id number], 176.8, cm, 01/24/23 10:59:00 EDT, Height, 127.4, kg, 05/17/22 4:58:00 EST, Dry Weight Start Date: 02/12/23 Status: Ordered losartan 50 mg oral tablet 1 tablet, By Mouth, Daily, # 90 tablet, 1 Refills, Maintenance, 11/28/22 21:33:00 EDT, [facility] #[id number], 176.8, cm, 11/05/22 11:22:00 EDT, Height, 127.4, kg, 05/17/22 4:58:00 EST, Dry Weight Start Date: 11/28/22 Status: Ordered mupirocin 2% topical ointment See Instructions, APPLY TOPICALLY TO THE AFFECTED AREA THREE TIMES DAILY FOR 14 DAYS, # 22 Gm, 0 Refills, Maintenance, 02/19/23 12:57:00 EDT, [facility] #[id number], 10, APPLY TOPICALLY TO THE AFFECTED AREA THREE TIMES DAILY FOR 14 DAYS, 176.8, c... Start Date: 02/19/23 Status: Ordered oxyCODONE 5 mg oral tablet 5 mg, 1, tablet, By Mouth, Every 8 hours, PRN, mass pat ok, ok for less. TAKE ONLY NEEDED, # 45 tablet, Refills 0, Tot. Refills 0, Maintenance, Pain , Moderate, 02/27/23 17:09:00 EDT, Route to Pharmacy Electronically, [facility] #[id number], P... Start Date: 02/27/23 Stop Date: 03/14/23 Status: Ordered predniSONE 20 mg oral tablet See Instructions, 2 tablets By Mouth Daily for 5 days and then 1 tablet by mouth daily for 5 days, # 15 tablet, 0 Refills, Soft Stop, 01/08/23 16:53:00 EDT, Tablet, [facility] #[id number], Partial fill upon patient request if the prescription is... Start Date: 01/08/23 Status: Ordered triamcinolone 0.025% topical ointment 1 application, Topically, 2 times a day, for 14 days, # 60 Gm, 3 Refills, Acute 03/27/23 12:53:00 EST, 01/30/23 12:53:00 EDT, Ointment, [facility] #[id number], Partial fill upon patient request if the prescription is for a schedule II opioid drug... Start Date: 01/30/23 Stop Date: 03/27/23 Status: Ordered Ventolin HFA 108 mcg/inh inhalation aerosol with adapter 2 puffs, Inhalation, Every 6 hours, # 8.5 Gm, 6 Refills, Maintenance, 12/23/22 11:39:00 EDT, [facility] #[id number], 176.8, cm, 12/23/22 11:25:00 EDT, Height, 127.4, [...] obesity (BMI 35.0-39.9) with comorbidity Confirmed Active Diagnosis Diagnosis Type Effective Dates Health Status [facility] серг[facility] Service Informant Skin lesion Discharge Diagnosis 01/30/23 Non-Specified Social History Social History Type Response Smoking Status 5-9 cigarettes (betw een 1/4 to 1/2 pack)/day in last 30 days; Tobacco use times per day: 7; entered on: 12/31/18 Sex Patient Care team information Care Team Personnel Name: Margarito Berger MD Position: [facility] Physician - Primary Care Member Role: PCP Address: Address: [address] [place] [address] Name: Bhumika Castillo RN Position: [facility] RN Member Role: Primary Care Nurse Name: Jaja Arshad RN Position: [facility] RN Member Role: Primary Care Nurse Name: Ludwin Butcher RN Position: [facility] RN Member Role: Primary Care Nurse Care Team Related Persons Name: GARRETT FUENTES Address: home [address] [place] [address] Name: MARLO REINOSO Name: PT STS, NONE Name: EFFIE RICKETTS Name: RANDALL RICKETTS
--- OUTSIDE RECORDS SUMMARY | 2023-09-25 00:31 | XMS_ITS | Continuity of Care Document ---
Author Organization [facility] Address [address] [place] [address]- Care Team Providers Care Scheduling Analyst Name Role Phone Ab FRAGA, Margarito Dolan Primary Care Physician Encounter [facility] Date(s): 09/06/21 - 10/06/21 [facility] [address] [place] [address]- Allergies, Adverse Reactions, Alerts No Known Medication [...] 0 Refills, Soft Stop, 11/06/20 13:52:00 EDT, [facility] #[id number], 176.8, cm, 11/06/20 13:38:00 EDT, Height, 140.3, kg, 11/06/20 13:38:00 EDT, Dry W... Start Date: 11/06/20 Status: Ordered ibuprofen 800 mg oral tablet 1, tablet, By Mouth, 3 times a day, PRN, TAKE WITH FOOD OR MILK, # 90 tablet, Refills 0, NEEDED FOR PAIN, Route to Pharmacy Electronically, [facility] #[id number], 176.8, cm, 06/21/21 15:26:00 EST, Height, 140.3, kg, 11/06/20 13:38:00 EDT, Dry... Start Date: 07/23/21 Status: Ordered ibuprofen 800 mg oral tablet 1, tablet, By Mouth, 3 times a day, PRN, TAKE WITH FOOD OR MILK, # 90 tablet, Refills 0, Tot. Refills 0, Maintenance, NEEDED FOR PAIN, 08/27/21 15:32:00 EDT, Route to Pharmacy Electronically, [facility] #[id number], 176.8, cm, 08/06/21 15:06:0... Start Date: 08/27/21 [...] 02/26/21 14:39:00 EDT, Route to Pharmacy Electronically, [facility] #[id number], Partial fill upon patientrequest if the prescription is for a schedule II op... Start Date: 02/26/21 Stop Date: 05/27/21 Status: Ordered losartan 50 mg oral tablet 1 tablet = 50 mg, By Mouth, Daily, for 30 days, # 30 tablet, 5 Refills, Physician Stop 10/13/21 14:50:00 EDT, 04/16/21 14:50:00 EST, [facility] #[id number], 176.8, cm, 02/01/21 16:07:00 EDT, Height, 140.3, kg, 11/06/20 13:38:00 EDT, Dry Weight Start Date: 04/16/21 Stop Date: 10/13/21 Status: Ordered metFORMIN 750 mg oral tablet, extended release 1 tablet, By Mouth, Daily, # 60 tablet, 5 Refills, [facility] #[id number], 176.8, cm, 02/02/2116:07:00 EDT, Height, 140.3, kg, 11/06/20 13:38:00 EDT, Dry Weight Start Date: 03/30/21 Status: Ordered oxyCODONE 5 mg oral tablet 5 mg, 1, tablet, By Mouth, Every 8 hours, PRN, mass pat ok, ok for less. Take only as needed., # 45tablet, Refills 0, Tot. Refills 0, Maintenance, Pain , Moderate, 09/28/21 17:08:00 EDT, Route to Pharmacy Electronically, [facility] #[id number],... Start Date: 09/28/21 Stop Date: 10/13/21 Status: [...] Gm, Refills 5, Route to Pharmacy Electronically, [id number], [facility] #[id number], 176.8, cm, 05/18/21 14:17:00 EST, Height, 140.3, kg, 11/06/20 13:38:00 EDT, Dry Weight Start Date: 06/13/21 Status: Ordered triamcinolone 0.1% topical cream See Instructions, APPLY TOPICALLY TO THE AFFECTED AREA ON ARMS AND LEGS THREE TIMES DAILY. MIX WITH16 OUNCES OF EUCERIN CREAM, # 80 Gm, 0 Refills, [facility] #[id number], 14, APPLY TOPICALLY TOTHE AFFECTED AREA ON [...]
--- OUTSIDE RECORDS SUMMARY | 2023-09-25 00:31 | XMS_ITS | Continuity of Care Document ---
Author Organization [facility] Address [address] [place] [address]- Care Team Providers Care Senior Enlisted Advisor Name Role Phone Margarito Berger MD Primary Care Physician Encounter [facility] Date(s): 12/23/22 - 12/30/22 [facility] [address] [place] [address]- Encounter Diagnosis Dermatitis(Discharge Diagnosis) - 12/23/22 Cocaine use disorder in remission(Discharge Diagnosis) - 12/23/22 Attending Physician: Margarito Berger MD Allergies, Adverse [...] 12/04/22 20:21:00 EDT, Route to Pharmacy Electronically, [facility] #[id number], Partial fill upon patient request if the prescription is... Start Date: 12/04/22 Status: Ordered diclofenac sodium 75 mg oral delayed release tablet See Instructions, TAKE 1 TABLET BY MOUTH TWICE DAILY WITH FOOD DIRECTED, # 60 tablet, 1 Refills,12/16/22 0:00:00 EDT, [facility] #[id number], 176.8, cm, 12/09/22 9:21:00 EDT, Height, 127.4, kg, 05/17/22 4:58:00 EST, Dry Weight Start Date: 12/16/22 Status: Ordered EpiPen 2-Michael 0.3 mg injectable kit = 0.3 mg, Intramuscular, Once, PRN severe allergic reaction, may repeat if necessary, # 2 each, 0 Refills, Soft Stop, 11/06/20 13:52:00 EDT, [facility] #[id number], 176.8, cm, 11/06/20 13:38:00 EDT, Height, 140.3, kg, 11/06/20 13:38:00 EDT, Dry W... Start Date: 11/06/20 Status: Ordered hydrOXYzine hydrochloride 50 mg oral tablet 1 tablet = 50 mg, By Mouth, 3 times a day, # 60 tablet, 1 Refills, Maintenance, 12/16/22 12:01:00 EDT, [facility] #[id number], 176.8, cm, 12/09/22 9:21:00 EDT, Height, 127.4, kg, 05/17/22 4:58:00 EST, Dry Weight Start Date: 12/16/22 Status: Ordered ibuprofen 800 mg oral tablet 1, tablet, By Mouth, 3 times a day, PRN, TAKE WITH FOOD OR MILK., # 90 tablet, Refills 5, Tot. Refills 5, Maintenance, NEEDED FOR PAIN(, 08/27/22 20:18:00 EDT, Route to Pharmacy Electronically, [facility] #[id number], 176.8, cm, 05/01/22 13:41... Start Date: 08/27/22 Status: Ordered losartan 50 mg oral tablet 1 tablet, By Mouth, Daily, # 90 tablet, 1 Refills, Maintenance, 11/28/22 21:33:00 EDT, [facility] #[id number], 176.8, cm, 11/05/22 11:22:00 EDT, Height, 127.4, kg, 05/17/22 4:58:00 EST, Dry Weight Start Date: 11/28/22 Status: Ordered mupirocin 2% topical ointment 1 application, Topically, 3 times a day, for 14 days, # 22 Gm, 3 Refills, Acute 01/20/23 16:10:00 EDT, 11/25/22 16:10:00 EDT, Ointment, [facility] #[id number], Partial fill upon patient request if the prescription is for a schedule II opioid drug... Start Date: 11/25/22 Stop Date: 01/20/23 Status: Ordered oxyCODONE 5 mg oral tablet 5 mg, 1, tablet, By Mouth, Every 8 hours, Was only able to get partial fill (16 tablets) from [facility]; mass pat Ok, # 29 tablet, Refills 0, Tot. Refills 0, Acute 01/17/23 15:17:00 EDT, 12/20/22 15:21:00 EDT, Route to Pharmacy Electronically,... Start Date: 12/20/22 Stop Date: 01/17/23 Status: Ordered oxyCODONE 5 mg oral tablet 5 mg, 1, tablet, By Mouth, Every 8 hours, PRN, mass pat ok, ok for less. TAKE ONLY NEEDED DNF 12/20/22, # 45 tablet, Refills 0, Tot. Refills 0, Maintenance, Pain , Moderate, 12/18/22 15:47:00 EDT, Route to Pharmacy Electronically, [facility] ST... Start Date: 12/18/22 Stop Date: 01/02/23 Status: Ordered ProAir HFA 90 mcg/inh inhalation aerosol with adapter 2, puffs, Inhalation, Every 6 hours, PRN, # 8.5 Gm, Refills 5, Tot. Refills 5, 04/09/22 15:33:00 EST, Route to Pharmacy Electronically, [id number], [facility] #[id number], 176.8, cm, 02/28/22 10:47:00 EDT, Height, 123.4,... Start Date: 04/09/22 Status: Ordered Ventolin HFA 108 mcg/inh inhalation aerosol with adapter 2 puffs, Inhalation, Every 6 hours, # 8.5 Gm, 6 Refills, Maintenance, 12/23/22 11:39:00 EDT, [facility] #[id number], 176.8, cm, 12/23/22 11:25:00 EDT, Height, 127.4, [...] Effective Dates Health Status Clinical Service Informant Dermatitis Discharge Diagnosis 12/23/22 Cocaine use disorder in remission Discharge Diagnosis 12/23/22 Vital Signs Most recent to oldest [Reference Range]: 1 2 Height 176.8 cm (12/23/22 11:25 AM) 176.8 cm (12/23/22 11: AM) Oxygen Saturation [94-100 %] 95 % (12/23/22 11: AM) Pulse Rate [55-90 bpm] 106 bpm *H* (12/23/22 11: AM) Blood Pressure [90-138/55-84 mm Hg] 129/ 90mm Hg (12/23/22 11:25 AM) 134/90mm Hg (12/23/22 11:23 AM) Mode of Delivery (Oxygen) Room air (12/23/22 11:23 AM) Blood pressure sites Arm, left (12/23/22 11:23 AM) Social History Social History Type Response Smoking Status 5-9 cigarettes (betw een 1/4 to 1/2 pack)/day in last 30 days; Tobacco use times per day: 7; entered on: 12/31/18 Sex Note * Kelsey Wyman: PERFORM, SIGN, VERIFY Event Display: Patient Education/Instruction Authored Date: [id number] [facility] *[facility] Clinical Summary Name EDD RICKETTS Age 47 Years 1975 PCP Margarito Berger MD PCP Visit Date 12/23/2022 11:05:00 Patient Instructions 10 days suture removal Additional Instructions: Scheduled Appointments?? Future Appointments ?*[facility] [address],??[place],??[address] ?Phone:??--?Fax:??-- ?Appt. Date:??01/20/2023?4:00 PM ?Scheduled Provider:??Chet FRAGA, Ayush Gomez ?[facility] ?Phone:??--?Fax:??-- ?Appt. Date:??02/26/2023?12:30 PM ?Scheduled Provider:??Sariah Linkwood Follow-Up Instructions ?? Diagnosis Cocaine use, unspecified, in remission; Dermatitis, unspecified Medications: Please continue your medications until treatment is completed or stopped by your provider. Discuss any questions related to medications with your provider. Medications to Continue Taking That Have Changed [facility] #[id number], [address] [place], [place] [id number], [phone] - Albuterol (Ventolin HFA 108 mcg/inh inhalation aerosol with adapter) 2 puff(s) Inhalation every 6hours for 30 Days. Refills: 6. Next Dose: These medications were not printed or sent to your pharmacy - Albuterol (ProAir HFA 90 mcg/inh inhalation aerosol with adapter) 2 puff(s) Inhalation every 6 hours as needed. Refills: 5. Next Dose: Medications to Continue with No Changes These medications were not printed or sent to your pharmacy Acetaminophen (acetaminophen 325 mg oral tablet) 650 Milligram Oral every 6 hours. May take OTC not to exceed 3000 mg/day. Next Dose: Aspirin (Aspirin Tablet) 325 Milligram Oral twice a day. Next Dose: Celecoxib (celecoxib 200 mg oral capsule) 1 capsule Oral Daily in the morning. Next Dose: Cyclobenzaprine (cyclobenzaprine 10 mg oral tablet) 1 tab(s) Oral 3 times a day. PRN spasms. Refills: 0. Next Dose: Diclofenac (diclofenac sodium 75 mg oral delayed release tablet) TAKE 1 TABLET BY MOUTH TWICE DAILYWITH FOOD DIRECTED. Refills: 1. Next Dose: EPINEPHrine (EpiPen 2-Michael 0.3 mg injectable kit) 0.3 Milligram Intramuscular once as needed severe allergic reaction. may repeat if necessary. Refills: 0. Next Dose: HydrOXYzine (hydrOXYzine hydrochloride 50 mg oral tablet) 1 tab(s) Oral 3 times a day. Refills: 1. Next Dose: Ibuprofen (ibuprofen 800 mg oral tablet) 1 tab(s) Oral 3 times a day as needed NEEDED FOR PAIN(.TAKE WITH FOOD OR MILK.. Refills: 5. Next Dose: Losartan (losartan 50 mg oral tablet) 1 tab(s) Oral Daily. Refills: 1. Next Dose: Mupirocin Topical (mupirocin 2% topical ointment) 1 hoa Topically 3 times a day for 14 Days. Refills: 3. Next Dose: Oxycodone (oxyCODONE 5 mg oral tablet) 1 tab(s) Oral every 8 hours as needed Pain , Moderate for 15Days. mass pat ok, ok for less. TAKE ONLY NEEDED DNF 12/20/22. Refills: 0. Next Dose: Oxycodone (oxyCODONE 5 mg oral tablet) 1 tab(s) Oral every 8 hours. Was only able to get partial fill (16 tablets) from [facility]; mass pat Ok. Refills: 0. Next Dose: Allergy Info:?? No Known Medication Allergies; Other Food Allergy; Seafood Medications Given This Visit Future Orders ?No future orders Vital Signs Height 176.8 cm Weight BMI Blood Pressure 129 mm Hg/90 mm Hg Temperature Pulse Rate 106 bpm Respiratory Rate 02 Sat Mode of Delivery 95 %/Room air You can now view a summary of your hospital visit from the comfort of your home through a free online portal called [facility]. [facility] is a website that allows you to securely view your medical information including discharge summary, medications and follow-up visits. ??You can alsosend a secure electronic message to your doctor???s office to request appointments, renew medications or just ask a question. You can enroll at [email or web address] or register during your next office visit. Disclaimer:?? The information provided is of a general nature and is intended to be used in conjunction with the recommendations and advice of your health care practitioner. ??Every effort has been made to ensure that the information provided is accurate and complete at the time it is provided to you however, as your needs change, or, as new ??information becomes available, different or additional instructions may be required. If you have questions, please consult with your primary care provider or pharmacist, as appropriate. ??This information is not intended to serve as substitution for assessment and evaluation by a qualified health care provider. If you do not have a primary care provider, you may find a [facility] provider by calling [facility] Link at [phone]. [facility], in keeping with [facility] guidance, no longer requires face masks for staff, patientsor visitors in most situations. Similar to time spent indoors at other locations, there is the chance that you were exposed to respiratory viruses during your time with us (such as flu or COVID-19).? If you develop symptoms concerning for a viral respiratory infection, please seek testing (and treatment if indicated) from your medical provider or home test kit. For information about the plan of care including goals and instructions for your diagnosis, please see the patient education orders section of this document. Patient Education Materials?? The content of this educational material or handout may have been modified, supplemented, or adapted from its original content and format to support your individualized medical care. * Kelsey Wyman: PERFORM, SIGN, VERIFY Event Display: Patient Education/Instruction Authored Date: [id number] [facility] *[facility] Clinical Summary Name EDD RICKETTS Age 47 Years 1975 [facility]CP [id number] Visit Date 12/23/2022 11:05:00 Patient Instructions 10 days suture removal Additional Instructions: Scheduled Appointments?? Future Appointments ?*[facility],??[place] ?Phone:??--?Fax:??-- ?Appt. Date:??01/20/2023?4:00 PM ?Scheduled Provider:??Chet FRAGA, Ayush Gomez ?[facility] ?Phone:??--?Fax:??-- ?Appt. Date:??02/26/2023?12:30 PM ?Scheduled Provider:??Echo Linkwood Follow-Up Instructions ?? Diagnosis Cocaine use, unspecified, in remission; Dermatitis, unspecified Medications: Please continue your medications until treatment is completed or stopped by your provider. Discuss any questions related to medications with your provider. Medications to Continue Taking That Have Changed [facility] #[id number], [address] [place], [place] [id number], [phone] - Albuterol (Ventolin HFA 108 mcg/inh inhalation aerosol with adapter) 2 puff(s) Inhalation every 6hours for 30 Days. Refills: 6. Next Dose: These medications were not printed or sent to your pharmacy - Albuterol (ProAir HFA 90 mcg/inh inhalation aerosol with adapter) 2 puff(s) Inhalation every 6 hours as needed. Refills: 5. Next Dose: Medications to Continue with No Changes These medications were not printed or sent to your pharmacy Acetaminophen (acetaminophen 325 mg oral tablet) 650 Milligram Oral every 6 hours. May take OTC not to exceed 3000 mg/day. Next Dose: Aspirin (Aspirin Tablet) 325 Milligram Oral twice a day. Next Dose: Celecoxib (celecoxib 200 mg oral capsule) 1 capsule Oral Daily in the morning. Next Dose: Cyclobenzaprine (cyclobenzaprine 10 mg oral tablet) 1 tab(s) Oral 3 times a day. PRN spasms. Refills: 0. Next Dose: Diclofenac (diclofenac sodium 75 mg oral delayed release tablet) TAKE 1 TABLET BY MOUTH TWICE DAILYWITH FOOD DIRECTED. Refills: 1. Next Dose: EPINEPHrine (EpiPen 2-Michael 0.3 mg injectable kit) 0.3 Milligram Intramuscular once as needed severe allergic reaction. may repeat if necessary. Refills: 0. Next Dose: HydrOXYzine (hydrOXYzine hydrochloride 50 mg oral tablet) 1 tab(s) Oral 3 times a day. Refills: 1. Next Dose: Ibuprofen (ibuprofen 800 mg oral tablet) 1 tab(s) Oral 3 times a day as needed NEEDED FOR PAIN(.TAKE WITH FOOD OR MILK.. Refills: 5. Next Dose: Losartan (losartan 50 mg oral tablet) 1 tab(s) Oral Daily. Refills: 1. Next Dose: Mupirocin Topical (mupirocin 2% topical ointment) 1 hoa Topically 3 times a day for 14 Days. Refills: 3. Next Dose: Oxycodone (oxyCODONE 5 mg oral tablet) 1 tab(s) Oral every 8 hours as needed Pain , Moderate for 15Days. mass pat ok, ok for less. TAKE ONLY NEEDED DNF 12/20/22. Refills: 0. Next Dose: Oxycodone (oxyCODONE 5 mg oral tablet) 1 tab(s) Oral every 8 hours. Was only able to get partial fill (16 tablets) from [facility]; mass pat Ok. Refills: 0. Next Dose: Allergy Info:?? No Known Medication Allergies; Other Food Allergy; Seafood Medications Given This Visit Future Orders ?No future orders Vital Signs Height 176.8 cm Weight BMI Blood Pressure 129 mm Hg/90 mm Hg Temperature Pulse Rate 106 bpm Respiratory Rate 02 Sat Mode of Delivery 95 %/Room air You can now view a summary of your hospital visit from the comfort of your home through a free online portal called [facility]. [facility] is a website that allows you to securely view your medical information including discharge summary, medications and follow-up visits. ??You can alsosend a secure electronic message to your doctor???s office to request appointments, renew medications or just ask a question. You can enroll at [email or web address] or register during your next office visit. Disclaimer:?? The information provided is of a general nature and is intended to be used in conjunction with the recommendations and advice of your health care practitioner. ??Every effort has been made to ensure that the information provided is accurate and complete at the time it is provided to you however, as your needs change, or, as new ??information becomes available, different or additional instructions may be required. If you have questions, please consult with your primary care provider or pharmacist, as appropriate. ??This information is not intended to serve as substitution for assessment and evaluation by a qualified health care provider. If you do not have a primary care provider, you may find a [facility] provider by calling [facility] Link at [phone]. [facility], in keeping with [facility] guidance, no longer requires face masks for staff, patientsor visitors in most situations. Similar to time spent indoors at other locations, there is the chance that you were exposed to respiratory viruses during your time with us (such as flu or COVID-19).? If you develop symptoms concerning for a viral respiratory infection, please seek testing (and treatment if indicated) from your medical provider or home test kit. For information about the plan of care including goals and instructions for your diagnosis, please see the patient education orders section of this document. Patient Education Materials?? The content of this educational material or handout may have been modified, supplemented, or adapted from its original content and format to support your individualized medical care. Patient Care team information Care Team Personnel Name: Margarito Berger MD Position: [facility] Physician - Primary Care Member Role: PCP Address: Address: [address] [place] [address] Name: Bhumika Castillo RN Position: [facility] SN RN Member Role: Primary Care Nurse Name: Jaja Arshad RN Position: S RN Member Role: Primary Care Nurse Name: Ludwin Butcher RN Position: [facility] RN Member Role: Primary Care Nurse Care Team Related Persons Name: GARRETT FUENTES Address: home [address] [place] [address] Name: MARLO REINOSO Name: PT STS, NONE Name: EFFIE RICKETTS Name: RANDALL RICKETTS
--- OUTSIDE RECORDS SUMMARY | 2023-09-25 00:31 | XMS_ITS | Continuity of Care Document ---
Author Organization [facility] Address [address] [place] [address]- Care Team Providers Care Certified Medical Transcriptionist Name Role Phone Ab FRAGA, Margarito Dolan Primary Care Physician Encounter [facility] Date(s): 01/01/23 - 01/31/23 [facility] [address] [place] [address]- Attending Physician: Lona Post Admitting Physician: Lona [...] 01/23/23 17:29:00 EDT, Route to Pharmacy Electronically, [facility] #[id number], Partial fill upon patient request if the prescription is... Start Date: 01/23/23 Status: Ordered diclofenac sodium 75 mg oral delayed release tablet See Instructions, TAKE 1 TABLET BY MOUTH TWICE DAILY WITH FOOD DIRECTED, # 60 tablet, 0 Refills,01/29/23 13:09:00 EDT, [facility] #[id number], 176.8, cm, 01/24/23 10:59:00 EDT, Height, 127.4, kg, 05/17/22 4:58:00 EST, Dry Weight Start Date: 01/29/23 Status: Ordered EpiPen 2-Michael 0.3 mg injectable kit = 0.3 mg, Intramuscular, Once, PRN severe allergic reaction, may repeat if necessary, # 2 each, 0 Refills, Soft Stop, 01/24/23 12:05:00 EDT, [facility] #[id number], 176.8, cm, 01/24/23 10:59:00 EDT, Height, 127.4, kg, 05/17/22 4:58:00 EST, Dry We... Start Date: 01/24/23 Status: Ordered hydrOXYzine hydrochloride 50 mg oral tablet 1 tablet = 50 mg, By Mouth, 3 times a day, # 60 tablet, 1 Refills, Maintenance, 12/16/22 12:01:00 EDT, [facility] #[id number], 176.8, cm, 12/09/22 9:21:00 EDT, Height, 127.4, kg, 05/17/22 4:58:00 EST, Dry Weight Start Date: 12/16/22 Status: Ordered losartan 50 mg oral tablet 1 tablet, By Mouth, Daily, # 90 tablet, 1 Refills, Maintenance, 11/28/22 21:33:00 EDT, [facility] #[id number], 176.8, cm, 11/05/22 11:22:00 EDT, Height, 127.4, kg, 05/17/22 4:58:00 EST, Dry Weight Start Date: 11/28/22 Status: Ordered mupirocin 2% topical ointment See Instructions, APPLY TOPICALLY TO THE AFFECTED AREA THREE TIMES DAILY FOR 14 DAYS, # 22 Gm, 0 Refills, Maintenance, 01/29/23 10:37:00 EDT, [facility] #[id number], 10, APPLY TOPICALLY TO THE AFFECTED AREA THREE TIMES DAILY FOR 14 DAYS, 176.8, c... Start Date: 01/29/23 Status: Ordered oxyCODONE 5 mg oral tablet 5 mg, 1, tablet, By Mouth, Every 8 hours, PRN, mass pat ok, ok for less. TAKE ONLY NEEDED, # 45 tablet, Refills 0, Tot. Refills 0, Maintenance, Pain , Moderate, 01/21/23 10:19:00 EDT, Route to Pharmacy Electronically, [facility] #[id number], P... Start Date: 01/21/23 Stop Date: 02/05/23 Status: Ordered predniSONE 20 mg oral tablet See Instructions, 2 tablets By Mouth Daily for 5 days and then 1 tablet by mouth daily for 5 days, # 15 tablet, 0 Refills, Soft Stop, 01/08/23 16:53:00 EDT, Tablet, [facility] #[id number], Partial fill upon patient request if the prescription is... Start Date: 01/08/23 Status: Ordered triamcinolone 0.025% topical ointment 1 application, Topically, 2 times a day, for 14 days, # 60 Gm, 3 Refills, Acute 03/27/23 12:53:00 EST, 01/30/23 12:53:00 EDT, Ointment, [facility] #[id number], Partial fill upon patient request if the prescription is for a schedule II opioid drug... Start Date: 01/30/23 Stop Date: 03/27/23 Status: Ordered Ventolin HFA 108 mcg/inh inhalation aerosol with adapter 2 puffs, Inhalation, Every 6 hours, # 8.5 Gm, 6 Refills, Maintenance, 12/23/22 11:39:00 EDT, [facility] #[id number], 176.8, cm, 12/23/22 11:25:00 EDT, Height, 127.4, [...] Name: Margarito Berger MD Position: [facility] Physician - Primary Care Member Role: PCP Address: Address: [address] [place] [id number] Name: Bhumika Castillo RN Position: [facility] SN RN Member Role: Primary Care Nurse Name: Jaja Arshad RN Position: [facility] RN Member Role: Primary Care Nurse Name: Ludwin Butcher RN Position: [facility] RN Member Role: Primary Care Nurse Care Team Related Persons Name: GARRETT FUENTES Address: home [address] [place] [address] Name: MARLO REINOSO Name: PT STS, NONE Name: EFFIE RICKETTS Name: RANDALL RICKETTS
--- OUTSIDE RECORDS SUMMARY | 2023-09-25 00:31 | XMS_ITS | Continuity of Care Document ---
Author Organization [facility] Address [address] [place] [address]- Care Team Providers Care Director Athletic Name Role Phone Margarito Berger MD Primary Care Physician [place] [facility] [place] 02/10/23 - 03/12/23 [facility] [address] [place] [address]- Allergies, Adverse Reactions, Alerts No Known Medication [...] 02/27/23 17:04:00 EDT, Route to Pharmacy Electronically, [facility] #[id number], Partial fill upon patient request if the prescription is... Start Date: 02/27/23 Status: Ordered diclofenac sodium 75 mg oral delayed release tablet See Instructions, TAKE 1 TABLET BY MOUTH TWICE DAILY WITH FOOD DIRECTED, # 60 tablet, 1 Refills,03/11/23 16:29:00 EST, [facility] #[id number], 176.8, cm, 01/24/23 10:59:00 EDT, Height, 127.4, kg, 05/17/22 4:58:00 EST, Dry Weight Start Date: 03/11/23 Status: Ordered EpiPen 2-Michael 0.3 mg injectable kit = 0.3 mg, Intramuscular, Once, PRN severe allergic reaction, may repeat if necessary, # 2 each, 0 Refills, Soft Stop, 01/24/23 12:05:00 EDT, [facility] #[id number], 176.8, cm, 01/24/23 10:59:00 EDT, Height, 127.4, kg, 05/17/22 4:58:00 EST, Dry We... Start Date: 01/24/23 Status: Ordered hydrOXYzine hydrochloride 50 mg oral tablet 1 tablet = 50 mg, By Mouth, 3 times a day, # 90 tablet, 1 Refills, Maintenance, 02/12/23 8:08:00 EDT, [facility] #[id number], 176.8, cm, 01/24/23 10:59:00 EDT, Height, 127.4, kg, 05/17/22 4:58:00 EST, Dry Weight Start Date: 02/12/23 Status: Ordered losartan 50 mg oral tablet 1 tablet, By Mouth, Daily, # 90 tablet, 1 Refills, Maintenance, 11/28/22 21:33:00 EDT, [facility] #[id number], 176.8, cm, 11/05/22 11:22:00 EDT, Height, 127.4, kg, 05/17/22 4:58:00 EST, Dry Weight Start Date: 11/28/22 Status: Ordered mupirocin 2% topical ointment See Instructions, APPLY TOPICALLY TO THE AFFECTED AREA THREE TIMES DAILY FOR 14 DAYS, # 22 Gm, 0 Refills, Maintenance, 03/11/23 16:29:00 EST, [facility] #[id number], 10, APPLY TOPICALLY TO THE AFFECTED AREA THREE TIMES DAILY FOR 14 DAYS, 176.8, c... Start Date: 03/11/23 Status: Ordered oxyCODONE 5 mg oral tablet 5 mg, 1, tablet, By Mouth, Every 8 hours, PRN, for 15 days, mass pat ok, ok for less. TAKE ONLY NEEDED, # 45 tablet, Refills 0, Tot. Refills 0, Hard Stop 03/14/23 17:09:00 EST, Pain , Moderate, 02/27/23 17:09:00 EDT, Route to Pharmacy Electronicall... Start Date: 02/27/23 Stop Date: 03/14/23 Status: Ordered oxyCODONE 5 mg oral tablet 5 mg, 1, tablet, By Mouth, Every 8 hours, PRN, mass pat ok, ok for less. TAKE ONLY NEEDED, # 45 tablet, Refills 0, Tot. Refills 0, Maintenance, Pain , Moderate, 03/12/23 16:48:00 EST, Route to Pharmacy Electronically, [facility] #[id number], P... Start Date: 03/12/23 Stop Date: 03/27/23 Status: Ordered predniSONE 20 mg oral tablet See Instructions, 2 tablets By Mouth Daily for 5 days and then 1 tablet by mouth daily for 5 days, # 15 tablet, 0 Refills, Soft Stop, 01/08/23 16:53:00 EDT, Tablet, [facility] #[id number], Partial fill upon patient request if the prescription is... Start Date: 01/08/23 Status: Ordered triamcinolone 0.025% topical ointment 1 application, Topically, 2 times a day, for 14 days, # 60 Gm, 3 Refills, Acute 03/27/23 12:53:00 EST, 01/30/23 12:53:00 EDT, Ointment, [facility] #[id number], Partial fill upon patient request if the prescription is for a schedule II opioid drug... Start Date: 01/30/23 Stop Date: 03/27/23 Status: Ordered Ventolin HFA 108 mcg/inh inhalation aerosol with adapter 2 puffs, Inhalation, Every 6 hours, # 8.5 Gm, 6 Refills, Maintenance, 12/23/22 11:39:00 EDT, [facility] #[id number], 176.8, cm, 12/23/22 11:25:00 EDT, Height, 127.4, [...] Name: Margarito Berger MD Position: [facility] Physician - Primary Care Member Role: PCP Address: Address: [address] [place] [address] Name: Bhumika Castillo RN Position: [facility] SN RN Member Role: Primary Care Nurse Name: Jaja Arshad RN Position: [facility] RN Member Role: Primary Care Nurse Name: Ludwin Butcher RN Position: [facility] RN Member Role: Primary Care Nurse Care Team Related Persons Name: GARRETT FUENTES Address: [address] [place] [address] Name: MARLO REINOSO Name: PT STS, NONE Name: EFFIE RICKETTS Name: RANDALL RICKETTS
--- OUTSIDE RECORDS SUMMARY | 2023-09-25 00:31 | XMS_ITS | Continuity of Care Document ---
Author Organization [facility] Address [address] [place] [address]- Care Team Providers Care Bridge Welder Name Role Phone Margarito Berger MD Primary Care Physician [place] [facility] [place]/20 - 12/01/20 [facility] [address] [address]- Encounter Diagnosis SKIP - Obstructive sleep apnea(Discharge Diagnosis) - 11/24/20 Hypertension(Discharge Diagnosis) - 11/24/20 Daytime sleepiness(Discharge Diagnosis) - 11/24/20 Attending Physician: Ko Ni MD Admitting Physician: Ko Ni MD Referring Physician: Margarito Berger MD Allergies, [...] 6 Refills, Maintenance, 11/08/20 9:05:00 EDT, Powder, [facility] #[id number], Partial fill upon patient request if the prescription is for a schedule II opioid drug., 2 puffs Inhalation... Start Date: 11/08/20 Status: Ordered EpiPen 2-Michael 0.3 mg injectable kit = 0.3 mg, Intramuscular, Once, PRN severe allergic reaction, may repeat if necessary, # 2 each, 0 Refills, Soft Stop, 11/06/20 13:52:00 EDT, [facility] #[id number], 176.8, cm, 11/06/20 13:38:00 EDT, Height, 140.3, kg, 11/06/20 13:38:00 EDT, Dry W... Start Date: 11/06/20 Status: Ordered hydrOXYzine pamoate 25 mg oral capsule 1 capsule = 25 mg, By Mouth, 4 times a day, for 14 days, prn itching; may increase to 2 caps as needed for itching, # 56 capsule, 1 Refills, Acute 12/04/20 14:16:00 EDT, 11/06/20 14:16:00 EDT, Capsule, [facility] #[id number], 176.8, cm, 11/06/20... Start Date: 11/06/20 Stop Date: 12/04/20 Status: Ordered ibuprofen 800 mg oral tablet 800 mg, 1, tablet, By Mouth, 3 times a day, PRN, with food or milk, # 90 tablet, Refills 5, Tot. Refills 5, Maintenance, as needed for pain, 11/06/20 13:53:00 EDT, Route to Pharmacy Electronically, [facility] #[id number], 176.8, cm, 11/06/20 13:3... Start Date: 11/06/20 Status: Ordered losartan 50 mg oral tablet 50 mg, 1, tablet, By Mouth, Daily, # 30 tablet, Refills 3, Tot. Refills 3, Maintenance, 11/22/20 14:41:00 EDT, Route to Pharmacy Electronically, [facility] #[id number], Partial fill upon patientrequest if the prescription is for a schedule II op... Start Date: 11/22/20 Status: Ordered semaglutide 1 mg/0.5 mL (1 mg dose) subcutaneous solution = 1 mg, Subcutaneous Injection, Every 7 days, # 1 each, 6 Refills, Acute 12/20/20 12:00:00 EDT, 11/29/20 10:23:00 EDT, [facility] #[id number], Partial fill upon patient request if the prescription is for a schedule II opioid drug., 176.8, cm, ... Start Date: 11/29/20 Stop Date: 12/20/20 Status: Ordered Problem List Condition Effective Dates Status Health Status Inform ant Adult BMI 40.0-44.9 kg/sq m(Confirmed) Active Chronic knee pain(Confirmed) Active Chronic low back pain(Confirmed) Active Daytime sleepiness(Confirmed) Active Hypertension(Confirmed) Active Morbid obesity(Confirmed) Active SKIP - Obstructive sleep apnea(Confirmed) Active Prediabetes(Confirmed) Active Diagnosis Diagnosis Type Effective Dates Health Status Clinical Service Informant SKIP - Obstructive sleep apnea Discharge Diagnosis 11/24/20 Hypertension Discharge Diagnosis 11/24/20 Daytime sleepiness Discharge Diagnosis 11/24/20 Vital Signs Most recent to oldest [Reference Range]: 1 2 Height 176.8 cm (11/24/20 10:37 AM) 176.8 cm (11/24/20 9:13 AM) Weight 139.5 kg (11/24/20 10:37 AM) 139.5 kg (11/24/20 9:13 AM) Body Mass Index [18.5-24.99] 44.63 *>HHI* (11/24/20 9:13 AM) Weight Obtained Via Patient/family state d (11/24/20 9:13 AM) Social History Social History Type Response Smoking Status 5-9 cigarettes (betw een 1/4 to 1/2 pack)/day in last 30 days; Tobacco use times per day: 7; entered on: 12/31/18 Sex
--- OUTSIDE RECORDS SUMMARY | 2023-09-25 00:31 | XMS_ITS | Continuity of Care Document ---
Author Organization [facility] Address [address] [place] [address]- Care Team Providers Care Administrative Support Technician Name Role Phone Margarito Berger MD Primary Care Physician Encounter [facility] [place] Date(s): 01/01/23 - 01/08/23 [facility] [address] [place] [address]- Encounter Diagnosis Visit for suture removal(Discharge Diagnosis) - 01/01/23 Attending Physician: Hien Kohli MD Referring Physician: Margarito Berger MD Allergies, [...] 12/31/22 7:50:00 EDT, Route to Pharmacy Electronically, [facility] #[id number], Partial fill upon patient request if the prescription is f... Start Date: 12/31/22 Status: Ordered diclofenac sodium 75 mg oral delayed release tablet See Instructions, TAKE 1 TABLET BY MOUTH TWICE DAILY WITH FOOD DIRECTED, # 60 tablet, 1 Refills,12/16/22 0:00:00 EDT, [facility] #[id number], 176.8, cm, 12/09/22 9:21:00 EDT, Height, 127.4, kg, 05/17/22 4:58:00 EST, Dry Weight Start Date: 12/16/22 Status: Ordered EpiPen 2-Michael 0.3 mg injectable kit = 0.3 mg, Intramuscular, Once, PRN severe allergic reaction, may repeat if necessary, # 2 each, 0 Refills, Soft Stop, 11/06/20 13:52:00 EDT, [facility] #[id number], 176.8, cm, 11/06/20 13:38:00 EDT, Height, 140.3, kg, 11/06/20 13:38:00 EDT, Dry W... Start Date: 11/06/20 Status: Ordered hydrOXYzine hydrochloride 50 mg oral tablet 1 tablet = 50 mg, By Mouth, 3 times a day, # 60 tablet, 1 Refills, Maintenance, 12/16/22 12:01:00 EDT, [facility] #[id number], 176.8, cm, 12/09/22 9:21:00 EDT, Height, 127.4, kg, 05/17/22 4:58:00 EST, Dry Weight Start Date: 12/16/22 Status: Ordered ibuprofen 800 mg oral tablet 1, tablet, By Mouth, 3 times a day, PRN, TAKE WITH FOOD OR MILK., # 90 tablet, Refills 5, Tot. Refills 5, Maintenance, NEEDED FOR PAIN(, 08/27/22 20:18:00 EDT, Route to Pharmacy Electronically, [facility] #[id number], 176.8, cm, 05/01/22 13:41... Start Date: 08/27/22 Status: Ordered losartan 50 mg oral tablet 1 tablet, By Mouth, Daily, # 90 tablet, 1 Refills, Maintenance, 11/28/22 21:33:00 EDT, [facility] #[id number], 176.8, cm, 11/05/22 11:22:00 EDT, Height, 127.4, kg, 05/17/22 4:58:00 EST, Dry Weight Start Date: 11/28/22 Status: Ordered mupirocin 2% topical ointment 1 application, Topically, 3 times a day, for 14 days, # 22 Gm, 3 Refills, Acute 01/20/23 16:10:00 EDT, 11/25/22 16:10:00 EDT, Ointment, [facility] #[id number], Partial fill upon patient request if the [...] 01/07/23 14:25:00 EDT, Route to Pharmacy Electronically, [facility] #[id number], P... Start Date: 01/07/23 Stop Date: 01/22/23 Status: Ordered oxyCODONE 5 mg oral tablet 5 mg, 1, tablet, By Mouth, Every 8 hours, Was only able to get partial fill (16 tablets) from [facility]; mass pat Ok, # 29 tablet, Refills [...] 01/07/23 7:30:00 EDT, Route to Pharmacy Electronically, [facility] #[id number], Partial fill upon patient request if t... Start Date: 01/07/23 Stop Date: 01/26/23 Status: Ordered predniSONE 20 mg oral tablet See Instructions, 2 tablets By Mouth Daily for 5 days and then 1 tablet by mouth daily for 5 days, # 15 tablet, 0 Refills, Soft Stop, 01/08/23 16:53:00 EDT, Tablet, [facility] #[id number], Partial fill upon patient request if the prescription is... Start Date: 01/08/23 Status: Ordered ProAir HFA 90 mcg/inh inhalation aerosol with adapter 2, puffs, Inhalation, Every 6 hours, PRN, # 8.5 Gm, Refills 5, Tot. Refills 5, 04/09/22 15:33:00 EST, Route to Pharmacy Electronically, [id number], [facility] #[id number], 176.8, cm, 02/28/22 10:47:00 EDT, Height, 123.4,... Start Date: 04/09/22 Status: Ordered Ventolin HFA 108 mcg/inh inhalation aerosol with adapter 2 puffs, Inhalation, Every 6 hours, # 8.5 Gm, 6 Refills, Maintenance, 12/23/22 11:39:00 EDT, [facility] #[id number], 176.8, cm, 12/23/22 11:25:00 EDT, Height, 127.4, [...] Diagnosis Diagnosis Type Effective Dates Health Status inical Service Informant Visit for suture removal Discharge Diagnosis 01/01/23 Vital Signs Most recent to oldest [Reference Range]: 1 Height 176.8 cm (01/01/23 4:04 PM) Oxygen Saturation [94-100 %] 95 % (01/01/23 4:04 PM) Pulse Rate [55-90 bpm] 100 bpm *H* (01/01/23 4:04 PM) Blood Pressure [90-138/55-84 mm Hg] 137/ 91mm Hg (01/01/23 4:04 PM) Respiratory Rate [16-30 br/min] 16 br/mi n (01/01/23 4:04 PM) Temperature [96.8-100.4 DegF] 98.0 DegF (01/01/23 4:04 PM) Blood pressure sites Arm, right (01/01/23 4:04 PM) Temperature Route Temporal (01/01/23 4:04 PM) Social History Social History Type Response Smoking Status 5-9 cigarettes (betw een 1/4 to 1/2 pack)/day in last 30 days; Tobacco use times per day: 7; entered on: 12/31/18 Sex Patient Care team information Care Team Personnel Name: Margarito Berger MD Position: [facility] Physician - Primary Care Member Role: PCP Address: Address: [address] [place] [id number] Name: Bhumika Castillo RN Position: [facility] SN RN Member Role: Primary Care Nurse Name: Jaja Arshad RN Position: S RN Member Role: Primary Care Nurse Name: Ludwin Butcher RN Position: [facility] RN Member Role: Primary Care Nurse Care Team Related Persons Name: GARRETT FUENTES Address: home [address] [place] [address] Name: MARLO REINOSO Name: PT STS, NONE Name: EFFIE RICKETTS Name: RANDALL RICKETTS
--- OUTSIDE RECORDS SUMMARY | 2023-09-25 00:31 | XMS_ITS | Continuity of Care Document ---
Author Organization [facility] Address [address] [place] [address]- Care Team Providers Care Certified Ski Patroller Name Role Phone Ab FRAGA, Margarito Dolan Primary Care Physician Encounter [facility] [place] Date(s): 10/08/22 - 11/07/22 [facility] [address] [place] [address]- Allergies, Adverse Reactions, Alerts No Known Medication [...] 11/11/22 16:30:00 EDT, 11/01/22 16:30:00 EDT, Tablet, [facility] #[id number], Partial fill upon patient request if the [...] 10/21/22 15:31:00 EDT, Route to Pharmacy Electronically, [facility] #[id number], Partial fill upon patient request if the prescription is... Start Date: 10/21/22 Status: Ordered EpiPen 2-Michael 0.3 mg injectable kit = 0.3 mg, Intramuscular, Once, PRN severe allergic reaction, may repeat if necessary, # 2 each, 0 Refills, Soft Stop, 11/06/20 13:52:00 EDT, [facility] #[id number], 176.8, cm, 11/06/20 13:38:00 EDT, Height, 140.3, kg, 11/06/20 13:38:00 EDT, Dry W... Start Date: 11/06/20 Status: Ordered hydrOXYzine hydrochloride 50 mg oral tablet 1 tablet = 50 mg, By Mouth, 3 times a day, # 60 tablet, 1 Refills, Maintenance, 10/21/22 15:31:00 EDT, [facility] #[id number], 176.8, cm, 10/11/22 16:37:00 EDT, Height, 127.4, kg, 05/17/22 4:58:00 EST, Dry Weight Start Date: 10/21/22 Status: Ordered ibuprofen 800 mg oral tablet 1, tablet, By Mouth, 3 times a day, PRN, TAKE WITH FOOD OR MILK., # 90 tablet, Refills 5, Tot. Refills 5, Maintenance, NEEDED FOR PAIN(, 08/27/22 20:18:00 EDT, Route to Pharmacy Electronically, [facility] #[id number], 176.8, cm, 05/01/22 13:41... Start Date: 08/27/22 Status: Ordered losartan 50 mg oral tablet 1 tablet, By Mouth, Daily, # 90 tablet, 1 Refills, Maintenance, 06/03/22 11:27:00 EST, [facility] #[id number], 176.8, cm, 05/01/22 13:41:00 EST, Height, 127.4, kg, 05/17/22 4:58:00 EST, Dry Weight Start Date: 06/03/22 Stop Date: 11/30/22 Status: Ordered mupirocin 2% topical ointment 1 application, Topically, 3 times a day, for 14 days, # 22 Gm, 0 Refills, Acute 11/15/22 16:29:00 EDT, 11/01/22 16:29:00 EDT, Ointment, [facility] #[id number], Partial fill upon patient request if the [...] 11/04/22 16:00:00 EDT, Route to Pharmacy Electronically, [facility] #[id number], P... Start Date: 11/04/22 Stop Date: 11/19/22 Status: Ordered ProAir HFA 90 mcg/inh inhalation aerosol with adapter 2, puffs, Inhalation, Every 6 hours, PRN, # 8.5 Gm, Refills 5, Tot. Refills 5, 04/09/22 15:33:00 EST, Route to Pharmacy Electronically, [id number], [facility] #[id number], 176.8, cm, 02/28/22 10:47:00 EDT, Height, 123.4,... [...] Team Personnel Name: Margarito Berger MD Position: [facility] Physician - Primary Care Member Role: PCP Address: Address: [address] [place] [id number] Name: Bhumika Castillo RN Position: [facility] RN Member Role: Primary Care Nurse Name: Jaja Arshad RN Position: [facility] RN Member Role: Primary Care Nurse Name: Ludwin Butcher RN Position: [facility] RN Member Role: Primary Care Nurse Care Team Related Persons Name: GARRETT FUENTES Address: home [address] [place] [id number] Name: MARLO REINOSO Name: PT STS, NONE Name: FEFIE RICKETTS Name: RANDALL RICKETTS
--- OUTSIDE RECORDS SUMMARY | 2023-09-25 00:31 | XMS_ITS | Continuity of Care Document ---
Author Organization [facility] Address [address] [place] [address]- Care Team Providers Care Auto Transmission Mechanic Name Role Phone Tra Kang MD Primary Care Physician [place] [facility] [place] 09/09/19 - 09/16/19 [facility] [address] [place] [address]- [facility] Encounter Diagnosis Folliculitis(Discharge Diagnosis) - 09/09/19 Pruritic rash(Discharge Diagnosis) - 09/09/19 SKIP - Obstructive sleep apnea(Discharge Diagnosis) - 09/09/19 Obesity, Class III, BMI 40-49.9 (morbid obesity)(Discharge Diagnosis) - 09/09/19 Hypertension(Discharge Diagnosis) - 09/09/19 Attending Physician: Tra Kang MD Allergies, Adverse [...] 09/05/2010:22:00 EDT, Aerosol, Route to Pharmacy Electronically, [id number], [facility] #[id number], 176.8, cm, 12/31/18 14:22:0... Start Date: 09/06/19 Status: Ordered cephalexin monohydrate 500 mg oral capsule 1 capsule = 500 mg, By Mouth, 3 times a day, for 10 days, # 30 capsule, 0 Refills, Acute 09/19/19 11:58:00 EDT, 09/09/19 11:58:00 EDT, Capsule, [facility] #[id number], 176.8, cm, 09/09/19 10:48:00 EDT, Height Start [...] 10/04/19 10:45:00 EDT, 08/05/19 10:45:00 EDT, Tablet, [facility] #[id number], 176.8,cm, 12/31/18 14:22:00 EDT, Height Start Date: [...] 08/24/19 16:13:00 EDT, Route to Pharmacy Electronically, [facility] #[id number], Partial fill upon patient request, 08/31/19,... Start Date: 08/24/19 Stop Date: 09/21/19 Status: Ordered triamcinolone 0.1% topical cream See Instructions, APPLY TOPICALLY TO THE AFFECTED AREA ON ARMS AND LEGS THREE TIMES DAILY FOR 14 DAYS, # 80 Gm, 0 Refills, Acute 09/28/19 12:22:00 EDT, 09/14/19 12:22:00 EDT, [facility] #[id number], 25, Please mix with 16 oz Eucerin [...] Effective Dates Health Status Clinical Service Informant Folliculitis Discharge Diagnosis 09/09/19 Pruritic rash Discharge Diagnosis 09/09/19 SKIP - Obstructive sleep apnea Discharge Diagnosis 09/09/19 Obesity, Class III, BMI 40-49.9 (morbid obesity) Discharge Diagnosis 09/09/19 Hypertension Discharge Diagnosis 09/09/19 Vital Signs Most recent to oldest [Reference Range]: 1 Height 176.8 cm (09/09/19 10:48 AM) Weight 127.6 kg (09/09/19 10:48 AM) Oxygen Saturation [94-100 %] 95 % (09/09/19 10:48 AM) Pulse Rate [55-90 bpm] 106 bpm *H* (09/09/19 10:48 AM) Body Mass Index [18.5-24.99] 40.82 *>HHI* (09/09/19 10:48 AM) Blood Pressure [90-138/55-84 mm Hg] 160/ 113mm Hg *H* (09/09/19 10:48 AM) Blood pressure sites Arm, right (09/09/19 10:48 AM) Weight Obtained Via Standing scale (09/09/19 10:48 AM) Social History Social History Type Response Smoking Status 5-9 cigarettes (betw een 1/4 to 1/2 pack)/day in last 30 days; Tobacco use times per day: 7; entered on: 12/31/18 Sex
--- OUTSIDE RECORDS SUMMARY | 2023-09-25 00:31 | XMS_ITS | Continuity of Care Document ---
Author Organization [facility] Address [address] [place] [address]- Care Team Providers Care Wire Spiral Binder Name Role Phone Margarito Berger MD Primary Care Physician Encounter [facility] [place] Date(s): 07/01/22 - 07/31/22 [facility] [address] [place] [address]- Allergies, Adverse Reactions, Alerts No Known Medication [...] 07/24/22 16:55:00 EDT, Route to Pharmacy Electronically, [facility] #[id number], Partial fill upon patient request if the... Start Date: 07/24/22 Stop Date: 08/24/22 Status: Ordered EpiPen 2-Michael 0.3 mg injectable kit = 0.3 mg, Intramuscular, Once, PRN severe allergic reaction, may repeat if necessary, # 2 each, 0 Refills, Soft Stop, 11/06/20 13:52:00 EDT, [facility] #[id number], 176.8, cm, 11/06/20 13:38:00 EDT, Height, 140.3, kg, 11/06/20 13:38:00 EDT, Dry W... Start Date: 11/06/20 Status: Ordered hydrOXYzine hydrochloride 50 mg oral tablet See Instructions, TAKE 1 TABLET BY MOUTH FOUR TIMES DAILY FOR 12 DAYS NEEDED FOR ANXIETY, # 48 tablet, 0 Refills, Maintenance, 06/14/22 15:46:00 EST, [facility] #[id number], 176.8, cm, 05/01/22 13:41:00 EST, Height, 127.4, kg, 05/17/22 4:58:00... Start Date: 06/14/22 Status: Ordered hydrOXYzine hydrochloride 50 mg oral tablet See Instructions, TAKE 1 TABLET BY MOUTH FOUR TIMES DAILY FOR 12 DAYS NEEDED FOR ANXIETY, # 48 tablet, 0 Refills, Maintenance, 07/01/22 17:28:00 EST, [facility] #[id number], 176.8, cm, 05/01/22 13:41:00 EST, Height, 127.4, kg, 05/17/22 4:58:00... Start Date: 07/01/22 Status: Ordered hydrOXYzine hydrochloride 50 mg oral tablet 1 tablet = 50 mg, By Mouth, 3 times a day, # 60 tablet, 1 Refills, Maintenance, 07/24/22 16:54:00 EDT, [facility] #[id number], 176.8, cm, 05/01/22 13:41:00 EST, Height, 127.4, [...] tablet, 1 Refills, Maintenance, 06/03/22 11:27:00 EST, [facility] #[id number], 176.8, cm, 05/01/22 13:41:00 EST, Height, 127.4, [...] Tot. Refills 0, Maintenance, Pain , Moderate, 07/24/22 12:39:00 EDT, Route to Pharmacy Electronically, [facility] #[id number], P... Start Date: 07/24/22 Stop Date: 08/08/22 Status: Ordered pantoprazole 40 mg oral delayed release tablet = 40 mg, By Mouth, Daily in AM, 0 Refills, Maintenance, 05/18/22 7:55:00 EST, [facility] Tablet Start Date: 05/18/22 Status: Ordered ProAir HFA 90 mcg/inh inhalation aerosol with adapter 2, puffs, Inhalation, Every 6 hours, PRN, # 8.5 Gm, Refills 5, Tot. Refills 5, 04/09/22 15:33:00 EST, Route to Pharmacy Electronically, [id number], [facility] #[id number], 176.8, cm, 02/28/22 10:47:00 EDT, Height, 123.4,... [...] List Condition Confirmation Course Effective Dates Status [facility] at Informant Adjustment disorder Confirmed Active Chronic knee [...] Team Personnel Name: Margarito Berger MD Position: [facility] Primary Care Physician Member Role: PCP Address: Address: [address] [place] [id number] Name: Bhumika Castillo RN Position: [facility] SN RN Member Role: Primary Care Nurse Name: Jaja Arshad RN Position: [facility] RN Member Role: Primary Care Nurse Name: Ludwin Butcher RN Position: [facility] RN Member Role: Primary Care Nurse Care Team Related Persons Name: GINA GARRETT Address: [address] [place] [address] Name: MARLO REINOSO Name: PT STS, NONE Name: EFFIE RICKETTS Name: RANDALL RICKETTS
--- OUTSIDE RECORDS SUMMARY | 2023-09-25 00:31 | XMS_ITS | Continuity of Care Document ---
Author Organization [facility] Address [address] [place] [address]- Care Team Providers Care Technology Advisor Name Role Phone Ab FRAGA, Margarito Dolan Primary Care Physician En[place] [facility] [place] Date(s): 01/08/23 - 02/07/23 [facility] [address] [place] [address]- Allergies, Adverse Reactions, Alerts No Known Medication [...] 01/23/23 17:29:00 EDT, Route to Pharmacy Electronically, [facility] #[id number], Partial fill upon patient request if the prescription is... Start Date: 01/23/23 Status: Ordered diclofenac sodium 75 mg oral delayed release tablet See Instructions, TAKE 1 TABLET BY MOUTH TWICE DAILY WITH FOOD DIRECTED, # 60 tablet, 0 Refills,01/29/23 13:09:00 EDT, [facility] #[id number], 176.8, cm, 01/24/23 10:59:00 EDT, Height, 127.4, kg, 05/17/22 4:58:00 EST, Dry Weight Start Date: 01/29/23 Status: Ordered EpiPen 2-Michael 0.3 mg injectable kit = 0.3 mg, Intramuscular, Once, PRN severe allergic reaction, may repeat if necessary, # 2 each, 0 Refills, Soft Stop, 01/24/23 12:05:00 EDT, [facility] #[id number], 176.8, cm, 01/24/23 10:59:00 EDT, Height, 127.4, kg, 05/17/22 4:58:00 EST, Dry We... Start Date: 01/24/23 Status: Ordered hydrOXYzine hydrochloride 50 mg oral tablet 1 tablet = 50 mg, By Mouth, 3 times a day, # 60 tablet, 1 Refills, Maintenance, 12/16/22 12:01:00 EDT, [facility] #[id number], 176.8, cm, 12/09/22 9:21:00 EDT, Height, 127.4, kg, 05/17/22 4:58:00 EST, Dry Weight Start Date: 12/16/22 Status: Ordered losartan 50 mg oral tablet 1 tablet, By Mouth, Daily, # 90 tablet, 1 Refills, Maintenance, 11/28/22 21:33:00 EDT, [facility] #[id number], 176.8, cm, 11/05/22 11:22:00 EDT, Height, 127.4, kg, 05/17/22 4:58:00 EST, Dry Weight Start Date: 11/28/22 Status: Ordered mupirocin 2% topical ointment See Instructions, APPLY TOPICALLY TO THE AFFECTED AREA THREE TIMES DAILY FOR 14 DAYS, # 22 Gm, 0 Refills, Maintenance, 01/29/23 10:37:00 EDT, [facility] #[id number], 10, APPLY TOPICALLY TO THE AFFECTED AREA THREE TIMES DAILY FOR 14 DAYS, 176.8, c... Start Date: 01/29/23 Status: Ordered oxyCODONE 5 mg oral tablet 5 mg, 1, tablet, By Mouth, Every 8 hours, PRN, mass pat ok, ok for less. TAKE ONLY NEEDED, # 45 tablet, Refills 0, Tot. Refills 0, Maintenance, Pain , Moderate, 01/21/23 10:19:00 EDT, Route to Pharmacy Electronically, [facility] #[id number], P... Start Date: 01/21/23 Stop Date: 02/05/23 Status: Ordered predniSONE 20 mg oral tablet See Instructions, 2 tablets By Mouth Daily for 5 days and then 1 tablet by mouth daily for 5 days, # 15 tablet, 0 Refills, Soft Stop, 01/08/23 16:53:00 EDT, Tablet, [facility] #[id number], Partial fill upon patient request if the prescription is... Start Date: 01/08/23 Status: Ordered triamcinolone 0.025% topical ointment 1 application, Topically, 2 times a day, for 14 days, # 60 Gm, 3 Refills, Acute 03/27/23 12:53:00 EST, 01/30/23 12:53:00 EDT, Ointment, [facility] #[id number], Partial fill upon patient request if the prescription is for a schedule II opioid drug... Start Date: 01/30/23 Stop Date: 03/27/23 Status: Ordered Ventolin HFA 108 mcg/inh inhalation aerosol with adapter 2 puffs, Inhalation, Every 6 hours, # 8.5 Gm, 6 Refills, Maintenance, 12/23/22 11:39:00 EDT, [facility] #[id number], 176.8, cm, 12/23/22 11:25:00 EDT, Height, 127.4, [...] Personnel Name: Ab FRAGA, Margarito Dolan Position: [facility] Physician - Primary Care Member Role: PCP Address: Address: [address] [place] [id number] Name: Bhumika Castillo RN Position: [facility] SN RN Member Role: Primary Care Nurse Name: Jaja Arshad RN Position: [facility] RN Member Role: Primary Care Nurse Name: Ludwin Butcher RN Position: [facility] RN Member Role: Primary Care Nurse Care Team Related Persons Name: GARRETT FUENTES Address: [address] [place] [address] Name: MARLO REINOSO Name: PT STS, NONE Name: EFFIE RICKETTS Name: RANDALL RICKETTS
--- OUTSIDE RECORDS SUMMARY | 2023-09-25 00:31 | XMS_ITS | Continuity of Care Document ---
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 Refills 0, Acute 06/28/22 15:46:00 EST, 06/14/22 15:46:00 EST, Route to Pharmacy Electronically, [facility] #[id number], Partial fill upon patient re... Start Date: 06/14/22 Stop Date: 06/28/22 Status: Ordered EpiPen 2-Michael 0.3 mg injectable kit = 0.3 mg, Intramuscular, Once, PRN severe allergic reaction, may repeat if necessary, # 2 each, 0 Refills, Soft Stop, 11/06/20 13:52:00 EDT, [facility] #[id number], 176.8, cm, 11/06/20 13:38:00 EDT, Height, 140.3, kg, 11/06/20 13:38:00 EDT, Dry W... Start Date: 11/06/20 Status: Ordered hydrOXYzine hydrochloride 50 mg oral tablet See Instructions, TAKE 1 TABLET BY MOUTH FOUR TIMES DAILY FOR 12 DAYS NEEDED FOR ANXIETY, # 48 tablet, 0 Refills, Maintenance, 06/14/22 15:46:00 EST, [facility] #[id number], 176.8, cm, 05/01/22 13:41:00 EST, Height, 127.4, kg, 05/17/22 4:58:00... Start Date: 06/14/22 Status: Ordered hydrOXYzine pamoate 50 mg oral [...] tablet, 1 Refills, Maintenance, 06/03/22 11:27:00 EST, [facility] #[id number], 176.8, cm, 05/01/22 13:41:00 EST, Height, 127.4, [...] Tot. Refills 0, Maintenance, Pain , Moderate, 06/11/22 15:52:00 EST, Route to Pharmacy Electronically, [facility] #[id number],... Start Date: 06/11/22 Stop Date: 07/11/22 Status: [...] 04/09/22 15:33:00 EST, Route to Pharmacy Electronically, [id number], [facility] #[id number], 176.8, cm, 02/28/22 10:47:00 EDT, Height, 123.4,... [...] Team Personnel Name: Margarito Berger MD Position: [facility] Primary Care Physician Member Role: PCP Address: Address: [address] [place] [id number] Name: Bhumika Castillo RN Position: [facility] SN RN Member Role: Primary Care Nurse Name: Jaja Arshad RN Position: S RN Member Role: Primary Care Nurse Name: Ludwin Butcher RN Position: S RN Member Role: Primary Care Nurse Care Team Related Persons Name: GARRETT FUENTES Address: [address] [place] [address] Name: MARLO REINOSO Name: PT STS, NONE Name: EFFIE RICKETTS Name: RANDALL RICKETTS
--- OUTSIDE RECORDS SUMMARY | 2023-09-25 00:31 | XMS_ITS | Continuity of Care Document ---
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 Start Date: 05/18/22 Status: Ordered EpiPen 2-Michael 0.3 mg injectable kit = 0.3 mg, Intramuscular, Once, PRN severe allergic reaction, may repeat if necessary, # 2 each, 0 Refills, Soft Stop, 11/06/20 13:52:00 EDT, [facility] #[id number], 176.8, cm, 11/06/20 13:38:00 EDT, Height, 140.3, [...] tablet, 1 Refills, Maintenance, 06/03/22 11:27:00 EST, [facility] #[id number], 176.8, cm, 05/01/22 13:41:00 EST, Height, 127.4, [...] 04/09/22 15:33:00 EST, Route to Pharmacy Electronically, [id number], [facility] #[id number], 176.8, cm, 02/28/22 10:47:00 EDT, Height, 123.4,... [...] List Condition Confirmation Course Effective Dates Status [facility] atus Informant Adjustment disorder Confirmed [...] Care Physician Member Role: PCP Address: Address: [address] [place] [id number] Name: Bhumika Castillo RN Position: S SN RN Member Role: Primary Care Nurse Name: Jaja Arshad RN Position: S RN Member Role: Primary Care Nurse Name: Ludwin Butcher RN Position: S RN Member Role: Primary Care Nurse Care Team Related Persons Name: GARRETT FUENTES Address: home [address] [place] [address] Name: MARLO REINOSO Name: PT STS, NONE Name: EFFIE RICKETTS Name: RANDALL RICKETTS
--- OUTSIDE RECORDS SUMMARY | 2023-09-25 00:31 | XMS_ITS | Continuity of Care Document ---
Author Organization [facility] Address [address] [place] [address]- Care Team Providers Care Environmental Communications Specialist Name Role Phone Margarito Berger MD Primary Care Physician [place] [facility] [place] 09/06/21 - 10/07/21 [facility] [address] [place] [address]- Attending Physician: Not on Staff, Attending MD [...] 0 Refills, Soft Stop, 11/06/20 13:52:00 EDT, [facility] #[id number], 176.8, cm, 11/06/20 13:38:00 EDT, Height, 140.3, kg, 11/06/20 13:38:00 EDT, Dry W... Start Date: 11/06/20 Status: Ordered ibuprofen 800 mg oral tablet 1, tablet, By Mouth, 3 times a day, PRN, TAKE WITH FOOD OR MILK, # 90 tablet, Refills 0, NEEDED FOR PAIN, Route to Pharmacy Electronically, [facility] #[id number], 176.8, cm, 06/21/21 15:26:00 EST, Height, 140.3, kg, 11/06/20 13:38:00 EDT, Dry... Start Date: 07/23/21 Status: Ordered ibuprofen 800 mg oral tablet 1, tablet, By Mouth, 3 times a day, PRN, TAKE WITH FOOD OR MILK, # 90 tablet, Refills 0, Tot. Refills 0, Maintenance, NEEDED FOR PAIN, 08/27/21 15:32:00 EDT, Route to Pharmacy Electronically, [facility] #[id number], 176.8, cm, 08/06/21 15:06:0... Start Date: 08/27/21 [...] 02/26/21 14:39:00 EDT, Route to Pharmacy Electronically, [facility] #[id number], Partial fill upon patientrequest if the prescription is for a schedule II op... Start Date: 02/26/21 Stop Date: 05/27/21 Status: Ordered losartan 50 mg oral tablet 1 tablet = 50 mg, By Mouth, Daily, for 30 days, # 30 tablet, 5 Refills, Physician Stop 10/13/21 14:50:00 EDT, 04/16/21 14:50:00 EST, [facility] #[id number], 176.8, cm, 02/01/21 16:07:00 EDT, Height, 140.3, kg, 11/06/20 13:38:00 EDT, Dry Weight Start Date: 04/16/21 Stop Date: 10/13/21 Status: Ordered metFORMIN 750 mg oral tablet, extended release 1 tablet, By Mouth, Daily, # 60 tablet, 5 Refills, [facility] #[id number], 176.8, cm, 02/02/2116:07:00 EDT, Height, 140.3, kg, 11/06/20 13:38:00 EDT, Dry Weight Start Date: 03/30/21 Status: Ordered oxyCODONE 5 mg oral tablet 5 mg, 1, tablet, By Mouth, Every 8 hours, PRN, mass pat ok, ok for less. Take only as needed., # 45tablet, Refills 0, Tot. Refills 0, Maintenance, Pain , Moderate, 09/28/21 17:08:00 EDT, Route to Pharmacy Electronically, [facility] #[id number],... Start Date: 09/28/21 Stop Date: 10/13/21 Status: [...] Gm, Refills 5, Route to Pharmacy Electronically, [id number], [facility] #[id number], 176.8, cm, 05/18/21 14:17:00 EST, Height, 140.3, kg, 11/06/20 13:38:00 EDT, Dry Weight Start Date: 06/13/21 Status: Ordered triamcinolone 0.1% topical cream See Instructions, APPLY TOPICALLY TO THE AFFECTED AREA ON ARMS AND LEGS THREE TIMES DAILY. MIX WITH16 OUNCES OF EUCERIN CREAM, # 80 Gm, 0 Refills, [facility] #[id number], 14, APPLY TOPICALLY TOTHE AFFECTED AREA ON [...]
--- OUTSIDE RECORDS SUMMARY | 2023-09-25 00:31 | XMS_ITS | Continuity of Care Document ---
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 Name Role Phone Ab FRAGA, Margarito Dolan Primary Care Physician En[place] [facility] [place] Date(s): 08/05/23 - 09/04/23 [facility] [address] [place] [address]- Allergies, Adverse Reactions, Alerts No Known Medication [...] tablet, 0 Refills, Maintenance, 05/28/23 8:20:00 EST, [facility] #[id number], 176.8, cm, 04/30/23 7:39:00 EST, Height, 127.4, kg, 05/17/22 4:58:00 EST, Dry Weight Start Date: 05/28/23 Stop Date: 06/07/23 Status: Ordered cyclobenzaprine 10 mg oral tablet 1, tablet, By Mouth, 3 times a day, PRN, # 60 tablet, Refills 0, Maintenance, NEEDED FOR SPASMS,08/18/23 12:16:00 EDT, Route to Pharmacy Electronically, [facility] #[id number], 176.8, cm, 04/30/23 7:39:00 EST, Height, 127.4, kg, 05/17/22 4:58... Start Date: 08/18/23 Status: Ordered diclofenac sodium 75 mg oral delayed release tablet 1 tablet, By Mouth, 2 times a day with meals, DIRECTED., # 60 tablet, 5 Refills, Maintenance, 07/01/23 20:55:00 EST, [facility] #[id number], 176.8, cm, 04/30/23 7:39:00 EST, Height, 127.4, kg, 05/17/22 4:58:00 EST, Dry Weight Start Date: 07/01/23 Status: Ordered doxycycline hyclate 100 mg oral tablet 1 tablet, By Mouth, 2 times a day, # 28 tablet, 0 Refills, Maintenance, 07/16/23 17:07:00 EDT, [facility] #[id number], 176.8, cm, 04/30/23 7:39:00 EST, Height, 127.4, kg, 05/17/22 4:58:00 EST, Dry Weight Start Date: 07/16/23 Stop Date: 07/30/23 Status: Ordered EpiPen 2-Michael 0.3 mg injectable kit = 0.3 mg, Intramuscular, Once, PRN severe allergic reaction, may repeat if necessary, # 2 each, 0 Refills, Soft Stop, 01/24/23 12:05:00 EDT, [facility] #[id number], 176.8, cm, 01/24/23 10:59:00 EDT, Height, 127.4, kg, 05/17/22 4:58:00 EST, Dry We... Start Date: 01/24/23 Status: Ordered hydrOXYzine hydrochloride 50 mg oral tablet 1 tablet = 50 mg, By Mouth, 3 times a day, PRN as needed for itching, # 90 tablet, 1 Refills, Maintenance, 06/18/23 13:07:00 EST, [facility] #[id number], 176.8, cm, 04/30/23 7:39:00 EST, Height,127.4, kg, 05/17/22 4:58:00 EST, Dry Weight Start Date: 06/18/23 Status: Ordered hydrOXYzine hydrochloride 50 mg oral tablet 1 tablet = 50 mg, By Mouth, 3 times a day, # 90 tablet, 1 Refills, Maintenance, 04/25/23 11:23:00 EST, [facility] #[id number], 176.8, cm, 01/24/23 10:59:00 EDT, Height, 127.4, kg, 05/17/22 4:58:00 EST, Dry Weight Start Date: 04/25/23 Status: Ordered losartan 50 mg oral tablet 1 tablet, By Mouth, Daily, # 90 tablet, 1 Refills, Maintenance, 06/05/23 18:32:00 EST, [facility] #[id number], 176.8, cm, 04/30/23 7:39:00 EST, Height, 127.4, kg, 05/17/22 4:58:00 EST, Dry Weight Start Date: 06/05/23 Status: Ordered metFORMIN 750 mg oral tablet, extended release 1 tablet = 750 mg, By Mouth, Daily, # 90 tablet, 1 Refills, Maintenance, 05/19/23 11:12:00 EST, ER Tablet, [facility] #[id number], Partial fill upon patient request if the prescription is for a schedule II opioid drug., 176.8, cm, 04/30/23 7:39:0... Start Date: 05/19/23 Status: Ordered mupirocin 2% topical ointment See Instructions, APPLY TOPICALLY TO THE AFFECTED AREA THREE TIMES DAILY FOR 14 DAYS, # 22 Gm, 0 Refills, Maintenance, 06/03/23 13:22:00 EST, [facility] #[id number], APPLY TOPICALLY TO THE AFFECTED AREA THREE TIMES DAILY FOR 14 DAYS, 176.8, cm, 0... Start Date: 06/03/23 Status: Ordered oxyCODONE 5 mg oral tablet 5 mg, 1, tablet, By Mouth, Every 8 hours, PRN, mass pat ok, ok for less. TAKE ONLY NEEDED DNF 08/26/2023, # 45 tablet, Refills 0, Tot. Refills 0, Maintenance, Pain , Moderate, 08/25/23 15:58:00 EDT, Route to Pharmacy Electronically, [facility]... Start Date: 08/25/23 Stop Date: 09/09/23 Status: Ordered predniSONE 20 mg oral tablet See Instructions, 2 tablets By Mouth Daily for 5 days and then 1 tablet by mouth daily for 5 days, # 15 tablet, 0 Refills, Soft Stop, 01/08/23 16:53:00 EDT, Tablet, [facility] #[id number], Partial fill upon patient request if the prescription is... Start Date: 01/08/23 Status: Ordered triamcinolone 0.025% topical ointment 1 application, Topically, 3 times a day, Apply to affected area, # 15 Gm, 1 Refills, Maintenance, 06/03/23 9:33:00 EST, Ointment, [facility] #[id number], Partial fill upon patient request if theprescription is for a schedule II opioid drug., 1 a... Start Date: 06/03/23 Status: Ordered Ventolin HFA 108 mcg/inh inhalation aerosol with adapter 2 puffs, Inhalation, Every 6 hours, # 18 Gm, 5 Refills, Maintenance, 05/25/23 6:11:00 EST, [facility] #[id number], 176.8, cm, 04/30/23 7:39:00 EST, Height, 127.4, [...] Team Personnel Name: Margarito Berger MD Position: [facility] Physician - Primary Care Member Role: PCP Address: Address: [address] [place] [id number] Name: Bhumika Castillo RN Position: [facility] RN Member Role: Primary Care Nurse Name: Jaja Arshad RN Position: [facility] RN Member Role: Primary Care Nurse Name: Ludwin Butcher RN Position: S RN Member Role: Primary Care Nurse Care Team Related Persons Name: GARRETT FUENTES Address: home [address] [place] [address] Name: MARLO REINOSO Name: PT STS, NONE Name: EFFIE RICKETTS Name: RANDALL RICKETTS
--- OUTSIDE RECORDS SUMMARY | 2023-09-25 00:31 | XMS_ITS | Continuity of Care Document ---
Author Organization [facility] Address [address] [place] [address]- Care Team Providers Care Business Management Specialist Name Role Phone Margarito Berger MD Primary Care Physician [place] [facility] [place] 12[place] 01/27/21 [facility] [address] [place] [address]- Allergies, Adverse Reactions, Alerts No Known Medication [...] 6 Refills, Maintenance, 01/08/21 12:55:00 EDT, Powder, [facility] #[id number], Partial fill upon patient request if the prescription is for a schedule II opioid drug., 2 puffs Inhalatio... Start Date: 01/08/21 Status: Ordered EpiPen 2-Michael 0.3 mg injectable kit = 0.3 mg, Intramuscular, Once, PRN severe allergic reaction, may repeat if necessary, # 2 each, 0 Refills, Soft Stop, 11/06/20 13:52:00 EDT, [facility] #[id number], 176.8, cm, 11/06/20 13:38:00 EDT, Height, 140.3, kg, 11/06/20 13:38:00 EDT, Dry W... Start Date: 11/06/20 Status: Ordered hydrOXYzine hydrochloride 50 mg oral tablet See Instructions, TAKE 1 TABLET BY MOUTH FOUR TIMES DAILY NEEDED FOR ANXIETY., # 40 tablet, 0 Refills, [facility] #[id number], 176.8, cm, 01/08/21 12:47:00 EDT, Height, 140.3, [...] 11/06/20 13:53:00 EDT, Route to Pharmacy Electronically, [facility] #[id number], 176.8, cm, 11/06/20 13:3... Start Date: 11/06/20 [...] 11/22/20 14:41:00 EDT, Route to Pharmacy Electronically, [facility] #[id number], Partial fill upon patientrequest if the prescription is for a schedule II op... Start Date: 11/22/20 Status: Ordered metFORMIN 750 mg oral tablet, extended release 1 tablet = 750 mg, By Mouth, Daily, # 60 tablet, 0 Refills, Maintenance, 01/22/21 16:38:00 EDT, ER Tablet, [facility] #[id number], Partial fill upon patient request if the prescription is for a schedule II opioid drug., 176.8, cm, 01/22/21 16:00:... Start Date: 01/22/21 Status: Ordered Nicotine 2 mg gum 1 each = 2 mg, Chew, Every 2 hours, PRN as needed for smoking cessation, # 40 each, 0 Refills, Acute 02/19/21 12:00:00 EDT, 01/22/21 16:40:00 EDT, Gum, [facility] #[id number], Partial fill upon patient request if the prescription is for a schedul... Start Date: 01/22/21 Stop Date: 02/19/21 Status: Ordered nicotine 21 mg/24 hr transdermal film, extended release 1 patch, Topically, Daily, for 30 days, # 30 patch, 0 Refills, Acute 02/21/21 16:40:00 EDT, 01/22/21 16:40:00 EDT, Patch, [facility] #[id number], Partial fill upon patient request if the prescription is for a schedule II opioid drug., 1 patch Top... Start Date: 01/22/21 Stop Date: 02/21/21 Status: Ordered Problem List Condition Effective Dates Status Health Status Inform ant Adult BMI 40.0-44.9 kg/sq m(Confirmed) Active BMI 45.0-49.9, adult(Confirmed) Active Chronic knee [...]
--- OUTSIDE RECORDS SUMMARY | 2023-09-25 00:31 | XMS_ITS | Continuity of Care Document ---
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 Start Date: 05/02/23 Status: Ordered diclofenac sodium 75 mg oral delayed release tablet 1 tablet, By Mouth, 2 times a day with meals, DIRECTED., # 60 tablet, 1 Refills, Maintenance, 05/04/23 6:22:00 EST, [facility] #[id number], 176.8, cm, 04/30/23 7:39:00 EST, Height, 127.4, kg,05/17/22 4:58:00 EST, Dry Weight Start Date: 05/04/23 Status: Ordered doxycycline hyclate 100 mg oral tablet See Instructions, TAKE 1 TABLET BY MOUTH TWICE DAILY FOR 14 DAYS, # 28 tablet, 0 Refills, Maintenance, 04/10/23 14:15:00 EST, [facility] #[id number], 176.8, cm, 01/24/23 10:59:00 EDT, Height, 127.4, kg, 05/17/22 4:58:00 EST, Dry Weight Start Date: 04/10/23 Status: Ordered EpiPen 2-Michael 0.3 mg injectable kit = 0.3 mg, Intramuscular, Once, PRN severe allergic reaction, may repeat if necessary, # 2 each, 0 Refills, Soft Stop, 01/24/23 12:05:00 EDT, [facility] #[id number], 176.8, cm, 01/24/23 10:59:00 EDT, Height, 127.4, kg, 05/17/22 4:58:00 EST, Dry We... Start Date: 01/24/23 Status: Ordered hydrOXYzine hydrochloride 50 mg oral tablet 1 tablet = 50 mg, By Mouth, 3 times a day, # 90 tablet, 1 Refills, Maintenance, 04/25/23 11:23:00 EST, [facility] #[id number], 176.8, cm, 01/24/23 10:59:00 EDT, Height, 127.4, kg, 05/17/22 4:58:00 EST, Dry Weight Start Date: 04/25/23 Status: Ordered hydrOXYzine hydrochloride 50 mg oral tablet See Instructions, TAKE 1 TABLET BY MOUTH THREE TIMES DAILY, # 90 tablet, 0 Refills, Maintenance, 04/25/23 14:10:00 EST, [facility] #[id number], 176.8, cm, 01/24/23 10:59:00 EDT, Height, 127.4, kg, 05/17/22 4:58:00 EST, Dry Weight Start Date: 04/25/23 Status: Ordered losartan 50 mg oral tablet 1 tablet, By Mouth, Daily, # 90 tablet, 1 Refills, Maintenance, 11/28/22 21:33:00 EDT, [facility] #[id number], 176.8, cm, 11/05/22 11:22:00 EDT, Height, 127.4, kg, 05/17/22 4:58:00 EST, Dry Weight Start Date: 11/28/22 Status: Ordered metFORMIN 750 mg oral tablet, extended release 1 tablet = 750 mg, By Mouth, Daily, # 90 tablet, 1 Refills, Maintenance, 05/19/23 11:12:00 EST, ER Tablet, [facility] #[id number], Partial fill upon patient request if the prescription is for a schedule II opioid drug., 176.8, cm, 04/30/23 7:39:0... Start Date: 05/19/23 Status: Ordered mupirocin 2% topical ointment See Instructions, APPLY TOPICALLY TO THE AFFECTED AREA THREE TIMES DAILY FOR 14 DAYS, # 22 Gm, 0 Refills, Maintenance, 03/27/23 8:33:00 EST, [facility] #[id number], 10, APPLY TOPICALLY TO THE AFFECTED AREA THREE TIMES DAILY FOR 14 DAYS, 176.8, cm... Start Date: 03/27/23 Status: Ordered oxyCODONE 5 mg oral tablet 5 mg, 1, tablet, By Mouth, Every 8 hours, PRN, mass pat ok, ok for less. TAKE ONLY NEEDED DNF 05/23/2023, # 45 tablet, Refills 0, Tot. Refills 0, Maintenance, Pain , Moderate, 05/21/23 12:42:00 EST, Route to Pharmacy Electronically, [facility]... Start Date: 05/21/23 Stop Date: 06/05/23 Status: Ordered predniSONE 20 mg oral tablet See Instructions, 2 tablets By Mouth Daily for 5 days and then 1 tablet by mouth daily for 5 days, # 15 tablet, 0 Refills, Soft Stop, 01/08/23 16:53:00 EDT, Tablet, [facility] #[id number], Partial fill upon patient request if the prescription is... Start Date: 01/08/23 Status: Ordered Ventolin HFA 108 mcg/inh inhalation aerosol with adapter 2 puffs, Inhalation, Every 6 hours, # 18 Gm, 5 Refills, Maintenance, 05/25/23 6:11:00 EST, [facility] #[id number], 176.8, cm, 04/30/23 7:39:00 EST, Height, 127.4, [...] Team Personnel Name: Margarito Berger MD Position: [facility] Physician - Primary Care Member Role: PCP Address: Address: [address] [place] [id number] Name: Bhumika Castillo RN Position: [facility] RN Member Role: Primary Care Nurse Name: Jaja Arshad RN Position: [facility] RN Member Role: Primary Care Nurse Name: Ludwin Butcher RN Position: [facility] RN Member Role: Primary Care Nurse Care Team Related Persons Name: GARRETT FUENTES Address: [address] [place] [address] Name: MARLO REINOSO Name: PT STS, NONE Name: EFFIE RICKETTS Name: RANDALL RICKETTS
--- OUTSIDE RECORDS SUMMARY | 2023-09-25 00:32 | XMS_ITS | Continuity of Care Document ---
Author Organization [facility] Address [address] [place] [address]- Care Team Providers Care Pricer Name Role Phone Margarito Berger MD Primary Care Physician Encounter [facility] [place] Date(s): 03/29/22 - 04/28/22 [facility] [address] [place] [address]- Allergies, Adverse Reactions, Alerts No Known Medication [...] 04/23/22 10:40:00 EST, Route to Pharmacy Electronically, [facility] #[id number], Partial fill upon patient request if the prescr... Start Date: 04/23/22 Status: Ordered EpiPen 2-Michael 0.3 mg injectable kit = 0.3 mg, Intramuscular, Once, PRN severe allergic reaction, may repeat if necessary, # 2 each, 0 Refills, Soft Stop, 11/06/20 13:52:00 EDT, [facility] #[id number], 176.8, cm, 11/06/20 13:38:00 EDT, Height, 140.3, kg, 11/06/20 13:38:00 EDT, Dry W... Start Date: 11/06/20 Status: Ordered hydrOXYzine hydrochloride 50 mg oral tablet See Instructions, TAKE 1 TABLET BY MOUTH FOUR TIMES DAILY FOR 12 DAYS NEEDED FOR ANXIETY, # 48 tablet, 0 Refills, Maintenance, 04/12/22 12:47:00 EST, [facility] #[id number], 176.8, cm, 02/28/22 10:47:00 EDT, Height, 123.4, kg, 10/12/21 15:16:0... Start Date: 04/12/22 Status: Ordered hydrOXYzine hydrochloride 50 mg oral tablet See Instructions, TAKE 1 TABLET BY MOUTH FOUR TIMES DAILY FOR 12 DAYS NEEDED FOR ANXIETY, # 48 tablet, 0 Refills, Maintenance, 01/15/22 17:07:00 EDT, [facility] #[id number], 176.8, cm, 01/04/22 15:55:00 EDT, Height, 123.4, kg, 10/12/21 15:16:0... Start Date: 01/15/22 Status: Ordered ibuprofen 800 mg oral tablet 1, tablet, By Mouth, 3 times a day, PRN, TAKE WITH FOOD OR MILK., # 90 tablet, Refills 5, Maintenance, NEEDED FOR PAIN(, 01/04/22 10:09:00 EDT, Route to Pharmacy Electronically, [facility] #[id number], 176.8, cm, 12/14/21 16:29:00 EDT, Height,... Start [...] Mouth, Daily, # 30 tablet, 5 Refills, [facility] #[id number], 176.8, cm, 11/05/2214:43:00 EDT, Height, 123.4, kg, 10/12/21 15:16:00 EDT, Dry Weight Start Date: 11/13/21 Status: Ordered magnesium oxide 250 mg oral tablet See Instructions, TAKE 1 TABLET BY MOUTH DAILY AT BEDTIME FOR 14 DAYS, # 14 tablet, 0 Refills, Maintenance, 02/08/22 13:01:00 EDT, [facility] #[id number], 176.8, cm, 01/04/22 15:55:00 EDT, Height, 123.4, kg, 10/12/21 15:16:00 EDT, Dry Weight Start Date: 02/08/22 Status: Ordered magnesium oxide 250 mg oral tablet See Instructions, TAKE 1 TABLET BY MOUTH DAILY AT BEDTIME FOR 14 DAYS, # 14 tablet, 0 Refills, Maintenance, 01/04/22 15:54:00 EDT, [facility] #[id number], 176.8, cm, 12/14/21 16:29:00 EDT, Height, 123.4, kg, 10/12/21 15:16:00 EDT, Dry Weight Start Date: 01/04/22 Status: Ordered magnesium oxide 250 mg oral tablet See Instructions, TAKE 1 TABLET BY MOUTH DAILY AT BEDTIME FOR 14 DAYS, # 14 tablet, 0 Refills, Maintenance, 04/02/22 7:31:00 EST, [facility] #[id number], 176.8, cm, 02/28/22 10:47:00 EDT, Height, 123.4, kg, 10/12/21 15:16:00 EDT, Dry Weight Start Date: 04/02/22 Status: Ordered metFORMIN 750 mg oral tablet, extended release 1 tablet, By Mouth, Daily, # 60 tablet, 5 Refills, [facility] #[id number], 176.8, cm, 02/02/2116:07:00 EDT, Height, 140.3, kg, 11/06/20 13:38:00 EDT, Dry Weight Start Date: 03/30/21 Status: Ordered metFORMIN 750 mg oral tablet, extended release See Instructions, TAKE 1 TABLET BY MOUTH DAILY, # 60 tablet, 6 Refills, Maintenance, 03/29/22 19:08:00 EST, [facility] #[id number], 176.8, cm, 02/28/22 10:47:00 EDT, Height, 123.4, kg, 10/12/21 15:16:00 EDT, Dry Weight Start Date: 03/29/22 Status: Ordered oxyCODONE 5 mg oral tablet 5 mg, 1, tablet, By Mouth, Every 8 hours, PRN, mass pat ok, ok for less. Take only as needed., # 45tablet, Refills 0, Tot. Refills 0, Maintenance, Pain , Moderate, 09/28/21 17:08:00 EDT, Route to Pharmacy Electronically, [facility] #[id number],... Start Date: 09/28/21 Stop Date: 10/13/21 Status: [...] 04/19/22 9:57:00 EST, Route to Pharmacy Electronically, [facility] #[id number], P... Start Date: 04/19/22 Stop Date: 05/19/22 [...] 04/09/22 15:33:00 EST, Route to Pharmacy Electronically, [id number], [facility] #[id number], 176.8, cm, 02/28/22 10:47:00 EDT, Height, 123.4,... Start Date: 04/09/22 Status: Ordered triamcinolone 0.1% topical cream See Instructions, APPLY TOPICALLY TO THE AFFECTED AREA ON ARMS AND LEGS THREE TIMES DAILY. MIX WITH16 OUNCES OF EUCERIN CREAM, # 80 Gm, 0 Refills, [facility] #[id number], 14, APPLY TOPICALLY TOTHE AFFECTED AREA ON [...] Care Physician Member Role: PCP [facility] [address] Team Related Persons Name: GARRETT FUENTES Address: home [address] [place] [address] Name: MARLO REINOSO Name: PT STS, NONE
--- OUTSIDE RECORDS SUMMARY | 2023-09-25 00:32 | XMS_ITS | Continuity of Care Document ---
Author Organization [facility] Address [address] [place] [address]- Care Team Providers Care Grease Monkey Name Role Phone Margarito Berger MD Primary Care Physician Encounter [facility] [place] Date(s): 12/04/22 - 12/11/22 [facility] [address] [place] [address]- Encounter Diagnosis Nasal septal perforation(Discharge Diagnosis) - 12/04/22 Hypertension(Discharge Diagnosis) - 12/04/22 Chronic pain syndrome(Discharge Diagnosis) - 12/04/22 Attending Physician: Margarito Berger MD Allergies, Adverse [...] 12/04/22 20:21:00 EDT, Route to Pharmacy Electronically, [facility] #[id number], Partial fill upon patient request if the prescription is... Start Date: 12/04/22 Status: Ordered EpiPen 2-Michael 0.3 mg injectable kit = 0.3 mg, Intramuscular, Once, PRN severe allergic reaction, may repeat if necessary, # 2 each, 0 Refills, Soft Stop, 11/06/20 13:52:00 EDT, [facility] #[id number], 176.8, cm, 11/06/20 13:38:00 EDT, Height, 140.3, kg, 11/06/20 13:38:00 EDT, Dry W... Start Date: 11/06/20 Status: Ordered hydrOXYzine hydrochloride 50 mg oral tablet 1 tablet = 50 mg, By Mouth, 3 times a day, # 60 tablet, 1 Refills, Maintenance, 10/21/22 15:31:00 EDT, [facility] #[id number], 176.8, cm, 10/11/22 16:37:00 EDT, Height, 127.4, kg, 05/17/22 4:58:00 EST, Dry Weight Start Date: 10/21/22 Status: Ordered ibuprofen 800 mg oral tablet 1, tablet, By Mouth, 3 times a day, PRN, TAKE WITH FOOD OR MILK., # 90 tablet, Refills 5, Tot. Refills 5, Maintenance, NEEDED FOR PAIN(, 08/27/22 20:18:00 EDT, Route to Pharmacy Electronically, [facility] #[id number], 176.8, cm, 05/01/22 13:41... Start Date: 08/27/22 Status: Ordered losartan 50 mg oral tablet 1 tablet, By Mouth, Daily, # 90 tablet, 1 Refills, Maintenance, 11/28/22 21:33:00 EDT, [facility] #[id number], 176.8, cm, 11/05/22 11:22:00 EDT, Height, 127.4, kg, 05/17/22 4:58:00 EST, Dry Weight Start Date: 11/28/22 Status: Ordered mupirocin 2% topical ointment 1 application, Topically, 3 times a day, for 14 days, # 22 Gm, 3 Refills, Acute 01/20/23 16:10:00 EDT, 11/25/22 16:10:00 EDT, Ointment, [facility] #[id number], Partial fill upon patient request if the [...] 12/04/22 20:21:00 EDT, Route to Pharmacy Electronically, [email or web address] #[id number], P... Start Date: 12/04/22 Stop Date: 12/19/22 Status: Ordered ProAir HFA 90 mcg/inh inhalation aerosol with adapter 2, puffs, Inhalation, Every 6 hours, PRN, # 8.5 Gm, Refills 5, Tot. Refills 5, 04/09/22 15:33:00 EST, Route to Pharmacy Electronically, [id number], [facility] #[id number], 176.8, cm, 02/28/22 10:47:00 EDT, Height, 123.4,... Start Date: 04/09/22 Status: Ordered Ventolin HFA 108 mcg/inh inhalation aerosol with adapter See Instructions, INHALE 2 PUFFS BY MOUTH EVERY 6 HOURS NEEDED, # 18 Gm, 0 Refills, Maintenance,11/29/22 9:18:00 EDT, [facility] #[id number], 176.8, cm, 11/05/22 11:22:00 EDT, Height, 127.4,kg, [...] Effective Dates Health Status Clinical Service Informant Nasal septal perforation Discharge Diagnosis 12/04/22 Hypertension Discharge Diagnosis 12/04/22 Chronic pain syndrome Discharge Diagnosis 12/04/22 Vital Signs Most recent to oldest [Reference Range]: 1 2 3 4 Height 176.8 cm (12/09/22 9:21 AM) 176.8 cm (12/04/22 3:38 PM) 176.8 cm (12/04/22 3:37 PM) 176.8 cm (12/04/22 3:37 PM) Weight 127 kg (12/09/22 9:21 AM) 127 kg (12/04/22 3:09 PM) Oxygen Saturation [94-100 %] 96 % (12/04/22 3:09 PM) Pulse Rate [55-90 bpm] 102 bpm *H* (12/04/22 3:09 PM) Body Mass Index [18.5-24.99 kg/m2] 40.63 kg/m2 *>HHI* (12/04/22 3:09 PM) Blood Pressure [90-138/55-84 mm Hg] 126/89mm Hg (12/04/22 3:38 PM) 142/92mm Hg *H* (12/04/22 3:37 PM) 138/91mm Hg (12/04/22 3:37 PM) Mode of Delivery (Oxygen) Room air (12/04/22 3:09 PM) Blood pressure sites Arm, left (12/04/22 3:09 PM) Weight Obtained Via Standing scale (12/04/22 3:09 PM) Social History Social History Type Response Smoking Status 5-9 cigarettes (betw een 1/4 to 1/2 pack)/day in last 30 days; Tobacco use times per day: 7; entered on: 12/31/18 Sex Note * Miley Daniel: PERFORM, SIGN, VERIFY Event Display: Patient Education/Instruction Authored Date: [id number] [facility] *[facility] Clinical Summary Name EDD RICKETTS Age 47 Years 1975 PCP Ab RFAGA, Margarito Dolan PCP Visit Date 12/04/2022 14:32:00 Additional Instructions: Scheduled Appointments?? Future Appointments ?*[facility] [address],??[place],??[address] ?Phone:??--?Fax:??-- ?Appt. Date:??01/20/2023?4:00 PM ?Scheduled Provider:??Chet FRAGA, Ayush Gomez Follow-Up Instructions ?? Diagnosis Chronic pain syndrome; Other specified disorders of nose and nasal sinuses; Essential (primary) hypertension Medications: Please continue your medications until treatment is completed or stopped by your provider. Discuss any questions related to medications with your provider. Medications to Continue with No Changes These medications were not printed or sent to your pharmacy Acetaminophen (acetaminophen 325 mg oral tablet) 650 Milligram Oral every 6 hours. May take OTC not to exceed 3000 mg/day. Next Dose: Albuterol (ProAir HFA 90 mcg/inh inhalation aerosol with adapter) 2 puff(s) Inhalation every 6 hours as needed. Refills: 5. Next Dose: Albuterol (Ventolin HFA 108 mcg/inh inhalation aerosol with adapter) INHALE 2 PUFFS BY MOUTH EVERY 6 HOURS NEEDED. Refills: 0. Next Dose: Aspirin (Aspirin Tablet) 325 Milligram Oral twice a day. Next Dose: Celecoxib (celecoxib 200 mg oral capsule) 1 capsule Oral Daily in the morning. Next Dose: Cyclobenzaprine (cyclobenzaprine 10 mg oral tablet) 1 tab(s) Oral 3 times a day. PRN spasms. Refills: 0. Next Dose: EPINEPHrine (EpiPen 2-Michael 0.3 mg [...] pat ok, ok for less. TAKE ONLY NEEDED. Refills: 0. Next Dose: Allergy Info:?? No Known Medication Allergies; Other Food Allergy; Seafood Medications Given This Visit Future Orders ?Barbiturate Urine Screen? Order Date:12/04/22?- Complete on or after?12/04/22 ?Methadone Urine? Order Date:12/04/22?- Complete on or after?12/04/22 ?Cannabinoid Urine Screen? Order Date:12/04/22?- Complete on or after?12/04/22 ?Oxycodone Screen Urine? Order Date:12/04/22?- Complete on or after?12/04/22 ?Amphetamine Urine Screen? Order Date:12/04/22?- Complete on or after?12/04/22 ?Benzodiazepine Urine Screen? Order Date:12/04/22?- Complete on or after?12/04/22 ?PCP Urine? Order Date:12/04/22?- Complete on or after?12/04/22 ?Ethanol Urine? Order Date:12/04/22?- Complete on or after?12/04/22 ?Opiate Screen Urine? Order Date:12/04/22?- Complete on or after?12/04/22 ?Cocaine Urine Screen? Order Date:12/04/22?- Complete on or after?12/04/22 Vital Signs Height 176.8 cm Weight 127 kg BMI 40.63 kg/m2 Blood Pressure 126 mm Hg/89 mm Hg Temperature Pulse Rate 102 bpm Respiratory Rate 02 Sat Mode of Delivery 96 %/Room air You can now view a summary of your hospital visit from the comfort of your home through a free online portal called [employer]. [employer] is a website that allows you to securely view your medical information including discharge summary, medications and follow-up visits. ??You can alsosend a secure electronic message to your doctor???s office to request appointments, renew medications or just ask a question. You can enroll at [email or web address] or register during your next office visit. [...] primary care provider, you may find a [facility] provider by calling [facility] at [phone]. For information about the plan of care including goals and instructions for your diagnosis, please see the patient education orders section of this document. Patient Education Materials?? The content of this educational material or handout may have been modified, supplemented, or adapted from its original content and format to support your individualized medical care. * Miley Daniel: PERFORM, SIGN, VERIFY Event Display: Patient Education/Instruction Authored Date: [id number] [facility] *[facility] Clinical Summary Name EDD RICKETTS Age 47 Years 1975 PCP Margarito Berger MD PCP Visit Date 12/04/2022 14:32:00 Additional Instructions: Scheduled Appointments?? Future Appointments ?*[facility],??[place],??[address] ?Phone:??--?Fax:??-- ?Appt. Date:??01/20/2023?4:00 PM ?Scheduled Provider:??Chet FRAGA, Ayush Gomez Follow-Up Instructions ?? Diagnosis Chronic pain syndrome; Other specified disorders of nose and nasal sinuses; Essential (primary) hypertension Medications: Please continue your medications until treatment is completed or stopped by your provider. Discuss any questions related to medications with your provider. Medications to Continue with No Changes These medications were not printed or sent to your pharmacy Acetaminophen (acetaminophen 325 mg oral tablet) 650 Milligram Oral every 6 hours. May take OTC not to exceed 3000 mg/day. Next Dose: Albuterol (ProAir HFA 90 mcg/inh inhalation aerosol with adapter) 2 puff(s) Inhalation every 6 hours as needed. Refills: 5. Next Dose: Albuterol (Ventolin HFA 108 mcg/inh inhalation aerosol with adapter) INHALE 2 PUFFS BY MOUTH EVERY 6 HOURS NEEDED. Refills: 0. Next Dose: Aspirin (Aspirin Tablet) 325 Milligram Oral twice a day. Next Dose: Celecoxib (celecoxib 200 mg oral capsule) 1 capsule Oral Daily in the morning. Next Dose: Cyclobenzaprine (cyclobenzaprine 10 mg oral tablet) 1 tab(s) Oral 3 times a day. PRN spasms. Refills: 0. Next Dose: EPINEPHrine (EpiPen 2-Michael 0.3 mg [...] pat ok, ok for less. TAKE ONLY NEEDED. Refills: 0. Next Dose: Allergy Info:?? No Known Medication Allergies; Other Food Allergy; Seafood Medications Given This Visit Future Orders ?Barbiturate Urine Screen? Order Date:12/04/22?- Complete on or after?12/04/22 ?Methadone Urine? Order Date:12/04/22?- Complete on or after?12/04/22 ?Cannabinoid Urine Screen? Order Date:12/04/22?- Complete on or after?12/04/22 ?Oxycodone Screen Urine? Order Date:12/04/22?- Complete on or after?12/04/22 ?Amphetamine Urine Screen? Order Date:12/04/22?- Complete on or after?12/04/22 ?Benzodiazepine Urine Screen? Order Date:12/04/22?- Complete on or after?12/04/22 ?PCP Urine? Order Date:12/04/22?- Complete on or after?12/04/22 ?Ethanol Urine? Order Date:12/04/22?- Complete on or after?12/04/22 ?Opiate Screen Urine? Order Date:12/04/22?- Complete on or after?12/04/22 ?Cocaine Urine Screen? Order Date:12/04/22?- Complete on or after?12/04/22 Vital Signs Height 176.8 cm Weight 127 kg BMI 40.63 kg/m2 Blood Pressure 126 mm Hg/89 mm Hg Temperature Pulse Rate 102 bpm Respiratory Rate 02 Sat Mode of Delivery 96 %/Room air You can now view a summary of your hospital visit from the comfort of your home through a free online portal called [employer]. [employer] is a website that allows you to securely view your medical information including discharge summary, medications and follow-up visits. ??You can alsosend a secure electronic message to your doctor???s office to request appointments, renew medications or just ask a question. You can enroll at [email or web address] or register during your next office visit. [...] primary care provider, you may find a [facility] provider by calling [facility] at [phone]. For information about the plan of care [...] Team Personnel Name: Margarito Berger MD Position: [facility] Physician - Primary Care Member Role: PCP Address: Address: [address] [place] [address] Name: Bhumika Castillo RN Position: [facility] SN RN Member Role: Primary Care Nurse Name: Jaja Arshad RN Position: [facility] RN Member Role: Primary Care Nurse Name: Ludwin Buthcer RN Position: [facility] RN Member Role: Primary Care Nurse Care Team Related Persons Name: GARRETT FUENTES Address: [place] [address] Name: MARLO REINOSO Name: PT STS, NONE Name: EFFIE RICKETTS Name: RANDALL RICKETTS
--- OUTSIDE RECORDS SUMMARY | 2023-09-25 00:32 | XMS_ITS | Continuity of Care Document ---
Author Organization [facility] Address [address] [place] [address]- Care Team Providers Care Fiscal Officer Name Role Phone Margarito Berger MD Primary Care Physician Encounter [facility] [place] Date(s): 03/04/22 - 04/03/22 [facility] [address] [place] [address]- Allergies, Adverse Reactions, Alerts No Known Medication [...] 03/07/22 14:33:00 EST, Route to Pharmacy Electronically, [facility] #[id number], Partial fill upon patient request if the prescr... Start Date: 03/07/22 Status: Ordered EpiPen 2-Michael 0.3 mg injectable kit = 0.3 mg, Intramuscular, Once, PRN severe allergic reaction, may repeat if necessary, # 2 each, 0 Refills, Soft Stop, 11/06/20 13:52:00 EDT, [facility] #[id number], 176.8, cm, 11/06/20 13:38:00 EDT, Height, 140.3, kg, 11/06/20 13:38:00 EDT, Dry W... Start Date: 11/06/20 Status: Ordered hydrOXYzine hydrochloride 50 mg oral tablet See Instructions, TAKE 1 TABLET BY MOUTH FOUR TIMES DAILY FOR 12 DAYS NEEDED FOR ANXIETY, # 48 tablet, 0 Refills, Maintenance, 01/15/22 17:07:00 EDT, [facility] #[id number], 176.8, cm, 01/04/22 15:55:00 EDT, Height, 123.4, kg, 10/12/21 15:16:0... Start Date: 01/15/22 Status: Ordered hydrOXYzine hydrochloride 50 mg oral tablet See Instructions, TAKE 1 TABLET BY MOUTH FOUR TIMES DAILY FOR 12 DAYS NEEDED FOR ANXIETY, # 48 tablet, 0 Refills, Maintenance, 02/28/22 11:58:00 EDT, [facility] #[id number], 176.8, cm, 02/28/22 10:47:00 EDT, Height, 123.4, kg, 10/12/21 15:16:0... Start Date: 02/28/22 Status: Ordered ibuprofen 800 mg oral tablet 1, tablet, By Mouth, 3 times a day, PRN, TAKE WITH FOOD OR MILK., # 90 tablet, Refills 5, Maintenance, NEEDED FOR PAIN(, 01/04/22 10:09:00 EDT, Route to Pharmacy Electronically, [facility] #[id number], 176.8, cm, 12/14/21 16:29:00 EDT, Height,... Start [...] Mouth, Daily, # 30 tablet, 5 Refills, [facility] #[id number], 176.8, cm, 11/05/2214:43:00 EDT, Height, 123.4, kg, 10/12/21 15:16:00 EDT, Dry Weight Start Date: 11/13/21 Status: Ordered magnesium oxide 250 mg oral tablet See Instructions, TAKE 1 TABLET BY MOUTH DAILY AT BEDTIME FOR 14 DAYS, # 14 tablet, 0 Refills, Maintenance, 02/08/22 13:01:00 EDT, [facility] #[id number], 176.8, cm, 01/04/22 15:55:00 EDT, Height, 123.4, kg, 10/12/21 15:16:00 EDT, Dry Weight Start Date: 02/08/22 Status: Ordered magnesium oxide 250 mg oral tablet See Instructions, TAKE 1 TABLET BY MOUTH DAILY AT BEDTIME FOR 14 DAYS, # 14 tablet, 0 Refills, Maintenance, 01/04/22 15:54:00 EDT, [facility] #[id number], 176.8, cm, 12/14/21 16:29:00 EDT, Height, 123.4, kg, 10/12/21 15:16:00 EDT, Dry Weight Start Date: 01/04/22 Status: Ordered magnesium oxide 250 mg oral tablet See Instructions, TAKE 1 TABLET BY MOUTH DAILY AT BEDTIME FOR 14 DAYS, # 14 tablet, 0 Refills, Maintenance, 04/02/22 7:31:00 EST, [facility] #[id number], 176.8, cm, 02/28/22 10:47:00 EDT, Height, 123.4, kg, 10/12/21 15:16:00 EDT, Dry Weight Start Date: 04/02/22 Status: Ordered metFORMIN 750 mg oral tablet, extended release 1 tablet, By Mouth, Daily, # 60 tablet, 5 Refills, [facility] #[id number], 176.8, cm, 02/02/2116:07:00 EDT, Height, 140.3, kg, 11/06/20 13:38:00 EDT, Dry Weight Start Date: 03/30/21 Status: Ordered metFORMIN 750 mg oral tablet, extended release See Instructions, TAKE 1 TABLET BY MOUTH DAILY, # 60 tablet, 6 Refills, Maintenance, 03/29/22 19:08:00 EST, [facility] #[id number], 176.8, cm, 02/28/22 10:47:00 EDT, Height, 123.4, kg, 10/12/21 15:16:00 EDT, Dry Weight Start Date: 03/29/22 Status: Ordered oxyCODONE 5 mg oral tablet 5 mg, 1, tablet, By Mouth, Every 8 hours, PRN, mass pat ok, ok for less. Take only as needed., # 45tablet, Refills 0, Tot. Refills 0, Maintenance, Pain , Moderate, 09/28/21 17:08:00 EDT, Route to Pharmacy Electronically, [facility] #[id number],... Start Date: 09/28/21 Stop Date: 10/13/21 Status: Ordered oxyCODONE 5 mg oral tablet 5 mg, 1, tablet, By Mouth, Every 8 hours, PRN, mass pat ok, ok for less. Take only as needed., # 45tablet, Refills 0, Tot. Refills 0, Maintenance, Pain , Moderate, 03/29/22 15:22:00 EST, Route to Pharmacy Electronically, [facility] #[id number],... Start Date: 03/29/22 Stop Date: 04/28/22 Status: Ordered oxyCODONE 5 mg oral tablet 5 mg, 1, tablet, By Mouth, Every 8 hours, PRN, for 30 days, mass pat ok, ok for less. Take only as needed., # 45 tablet, Refills 0, Tot. Refills 0, Hard Stop 04/13/22 16:48:00 EST, Pain , Moderate, 03/14/22 16:48:00 EST, Route to Pharmacy Electronical... Start Date: 03/14/22 Stop Date: 04/13/22 Status: Ordered ProAir HFA 90 mcg/inh inhalation aerosol with adapter 2, puffs, Inhalation, Every 6 hours, PRN, # 8.5 Gm, Refills 5, Route to Pharmacy Electronically, [id number], [facility] #[id number], 176.8, cm, 10/12/21 15:16:00 EDT, Height, 123.4, kg, 10/12/21 15:16:00 EDT, Dry Weight Start Date: 11/05/21 Status: Ordered triamcinolone 0.1% topical cream See Instructions, APPLY TOPICALLY TO THE AFFECTED AREA ON ARMS AND LEGS THREE TIMES DAILY. MIX WITH16 OUNCES OF EUCERIN CREAM, # 80 Gm, 0 Refills, [facility] #[id number], 14, APPLY TOPICALLY TOTHE AFFECTED AREA ON [...] Team Personnel Name: Margarito Berger MD Position: [facility] Primary Care Physician Member Role: PCP Address: Address: [address] [place] [id number]- Care Team Related Persons Name: FUENTESFEREN Address: home [address] [place] [address] Name: MARLO REINOSO Name: PT STS, NONE
--- OUTSIDE RECORDS SUMMARY | 2023-09-25 00:32 | XMS_ITS | Continuity of Care Document ---
Author Organization [facility] Address [address] [place] [id number]- Care Team Providers Care Accounting Instructor Name Role Phone Ab FRAGA, Margarito Dolan Primary Care Physician Encounter [facility] [place] Date(s): 10/08/21 - 11/07/[address] [address]- Allergies, Adverse Reactions, Alerts No Known Medication [...] 0 Refills, Soft Stop, 11/06/20 13:52:00 EDT, [facility] #[id number], 176.8, cm, 11/06/20 13:38:00 EDT, Height, 140.3, kg, 11/06/20 13:38:00 EDT, Dry W... Start Date: 11/06/20 Status: Ordered ibuprofen 800 mg oral tablet 1, tablet, By Mouth, 3 times a day, PRN, TAKE WITH FOOD OR MILK, # 90 tablet, Refills 0, NEEDED FOR PAIN, Route to Pharmacy Electronically, [facility] #[id number], 176.8, cm, 06/21/21 15:26:00 EST, Height, 140.3, kg, 11/06/20 13:38:00 EDT, Dry... Start Date: 07/23/21 Status: Ordered ibuprofen 800 mg oral tablet 1, tablet, By Mouth, 3 times a day, PRN, TAKE WITH FOOD OR MILK, # 90 tablet, Refills 0, Tot. Refills 0, Maintenance, NEEDED FOR PAIN, 08/27/21 15:32:00 EDT, Route to Pharm[facility]ically, [facility][id number], 176.8, cm, 08/06/21 15:06:0... Start Date: 08/27/21 Status: Ordered ibuprofen 800 mg oral tablet See Instructions, TAKE 1 TABLET BY MOUTH 3 TIMES DAILY NEEDED FOR PAIN. TAKE WITH FOOD OR MILK, # 90 tablet, Refills 0, Tot. Refills 0, Maintenance, 10/10/21 15:29:00 EDT, Instructions Replace Required Details, Route to Pharmacy Electronically, [facility]... Start Date: 10/10/21 Status: Ordered Inhaler Spacer Inhaler Spacer , [...] tablet, By Mouth, Daily, # 30 tablet, 0 Refills, [facility] #[id number], 176.8, cm, 10/12/2214:16:00 EDT, Height, 123.4, kg, 10/12/21 15:16:00 EDT, Dry Weight Start Date: 10/16/21 Status: Ordered magnesium oxide 250 mg oral tablet 1 tablet = 250 mg, By Mouth, Daily at bedtime, for 14 days, # 14 tablet, 0 Refills, Acute 11/13/21 8:49:00 EDT, 10/30/21 8:49:00 EDT, Tablet, [facility] #59242, Partial fill upon patient request if the prescription is for a schedule II opioi... Start Date: 10/30/21 Stop Date: 11/13/21 Status: Ordered metFORMIN 750 mg oral tablet, extended release 1 tablet, By Mouth, Daily, # 60 tablet, 5 Refills, [facility] #62487, 176.8, cm, 02/02/2116:07:00 EDT, Height, 140.3, kg, 11/06/20 13:38:00 EDT, Dry Weight Start Date: 03/30/21 Status: Ordered oxyCODONE 5 mg oral tablet 5 mg, 1, tablet, By Mouth, Every 8 hours, PRN, mass pat ok, ok for less. Take only as needed., # 45tablet, Refills 0, Tot. Refills 0, Maintenance, Pain , Moderate, 10/31/21 14:49:00 EDT, Route to Pharmacy Electronically, [facility] #[id number],... Start Date: 10/31/21 Stop Date: 11/15/21 Status: Ordered oxyCODONE 5 mg oral tablet 5 mg, 1, tablet, By Mouth, Every 8 hours, PRN, mass pat ok, ok for less. Take only as needed., # 45tablet, Refills 0, Tot. Refills 0, Maintenance, Pain , Moderate, 09/28/21 17:08:00 EDT, Route to Pharmacy Electronically, [facility] #[id number],... Start Date: 09/28/21 Stop Date: 10/13/21 Status: Ordered oxyCODONE 5 mg oral tablet 5 mg, 1, tablet, By Mouth, Every 8 hours, PRN, for 15 days, mass pat ok, ok for less. Take only as needed., # 45 tablet, Refills 0, Tot. Refills 0, Hard Stop 11/14/21 16:50:00 EDT, Pain , Moderate, 10/30/21 16:50:00 EDT, Route to Pharmacy Electronical... Start Date: 10/30/21 Stop Date: 11/14/21 Status: Ordered phentermine 30 mg oral capsule 1 capsule = 30 mg, By Mouth, Daily in AM, for 30 days, # 30 capsule, 0 Refills, Acute 11/29/21 8:49:00 EDT, 10/30/21 8:49:00 EDT, Capsule, [facility] #[id number], Partial fill upon patient request if the [...] Gm, Refills 5, Route to Pharmacy Electronically, [id number], [facility] #[id number], 176.8, cm, 10/12/21 15:16:00 EDT, Height, 123.4, kg, 10/12/21 15:16:00 EDT, Dry Weight Start Date: 11/05/21 Status: Ordered triamcinolone 0.1% topical cream See Instructions, APPLY TOPICALLY TO THE AFFECTED AREA ON ARMS AND LEGS THREE TIMES DAILY. MIX WITH16 OUNCES OF EUCERIN CREAM, # 80 Gm, 0 Refills, [facility] #[id number], 14, APPLY TOPICALLY TOTHE AFFECTED AREA ON [...]
--- OUTSIDE RECORDS SUMMARY | 2023-09-25 00:32 | XMS_ITS | Continuity of Care Document ---
Author Organization [facility] Address [address] [place] [address]- Care Team Providers Care Security Rover Name Role Phone Margarito Berger MD Primary Care Physician Encounter [facility] [place] Date(s): 11/22/20 - 11/29/20 [facility] [address] [place] [address]- Encounter Diagnosis Morbid obesity(Discharge Diagnosis) - 11/22/20 Fatigue(Discharge Diagnosis) - 11/22/20 SKIP - Obstructive sleep apnea(Discharge Diagnosis) - 11/22/20 Hypertension(Discharge Diagnosis) - 11/22/20 Adult BMI 40.0-44.9 kg/sq m(Discharge Diagnosis) - 11/22/20 Attending Physician: Margarito Berger MD Allergies, Adverse [...] each, 6 Refills, Maintenance, 11/08/20 9:05:00 EDT, [facility] #[id number], Partial fill upon patient request if the prescription is for a schedule II opioid drug., 2 puffs Inhalation... Start Date: 11/08/20 Status: Ordered EpiPen 2-Michael 0.3 mg injectable kit = 0.3 mg, Intramuscular, Once, PRN severe allergic reaction, may repeat if necessary, # 2 each, 0 Refills, Soft Stop, 11/06/20 13:52:00 EDT, [facility] #[id number], 176.8, cm, 11/06/20 13:38:00 EDT, Height, 140.3, kg, 11/06/20 13:38:00 EDT, Dry W... Start Date: 11/06/20 Status: Ordered hydrOXYzine pamoate 25 mg oral capsule 1 capsule = 25 mg, By Mouth, 4 times a day, for 14 days, prn itching; may increase to 2 caps as needed for itching, # 56 capsule, 1 Refills, Acute 12/04/20 14:16:00 EDT, 11/06/20 14:16:00 EDT, Capsule, [facility] #[id number], 176.8, cm, 11/06/20... Start Date: 11/06/20 Stop Date: 12/04/20 Status: Ordered ibuprofen 800 mg oral tablet 800 mg, 1, tablet, By Mouth, 3 times a day, PRN, with food or milk, # 90 tablet, Refills 5, Tot. Refills 5, Maintenance, as needed for pain, 11/06/20 13:53:00 EDT, Route to Pharmacy Electronically, [facility] #[id number], 176.8, cm, 11/06/20 13:3... Start Date: 11/06/20 Status: Ordered losartan 50 mg oral tablet 50 mg, 1, tablet, By Mouth, Daily, # 30 tablet, Refills 3, Tot. Refills 3, Maintenance, 11/22/20 14:41:00 EDT, Route to Pharmacy Electronically, [facility] #76226, Partial fill upon patientrequest if the prescription is for a schedule II op... Start Date: 11/22/20 Status: Ordered semaglutide 1 mg/0.5 mL (1 mg dose) subcutaneous solution = 1 mg, Subcutaneous Injection, Every 7 days, # 1 each, 6 Refills, Acute 12/20/20 12:00:00 EDT, 11/29/20 10:23:00 EDT, [facility] #[id number], Partial fill upon patient request if the prescription is for a schedule II opioid drug., 176.8, cm, .. Start Date: 11/29/20 Stop Date: 12/20/20 Status: Ordered Problem List Condition Effective Dates Status Health Status Inform ant Adult BMI 40.0-44.9 kg/sq m(Confirmed) Active Chronic knee pain(Confirmed) Active Chronic low back pain(Confirmed) Active Daytime sleepiness(Confirmed) Active Hypertension(Confirmed) Active Morbid obesity(Confirmed) Active SKIP - Obstructive sleep apnea(Confirmed) Active Prediabetes(Confirmed) Active Diagnosis Diagnosis Type Effective Dates Health Status Clinical Service Informant Morbid obesity Discharge Diagnosis 11/22/20 Fatigue Discharge Diagnosis 11/22/20 SKIP - Obstructive sleep apnea Discharge Diagnosis 11/22/20 Hypertension Discharge Diagnosis 11/22/20 Adult BMI 40.0-44.9 kg/sq m Discharge Diagnosis 11/22/20 Vital Signs Most recent to oldest [Reference Range]: 1 Height 176.8 cm (11/22/20 2:05 PM) Social History Social History Type Response Smoking Status 5-9 cigarettes (betw een 1/4 to 1/2 pack)/day in last 30 days; Tobacco use times per day: 7; entered on: 12/31/18 Sex
--- OUTSIDE RECORDS SUMMARY | 2023-09-25 00:32 | XMS_ITS | Continuity of Care Document ---
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 Start Date: 01/08/21 Status: Ordered EpiPen 2-Michael 0.3 mg injectable kit = 0.3 mg, Intramuscular, Once, PRN severe allergic reaction, may repeat if necessary, # 2 each, 0 Refills, Soft Stop, 11/06/20 13:52:00 EDT, [facility] #[id number], 176.8, cm, 11/06/20 13:38:00 EDT, Height, 140.3, kg, 11/06/20 13:38:00 EDT, Dry W... Start Date: 11/06/20 Status: Ordered hydrOXYzine hydrochloride 50 mg oral tablet See Instructions, TAKE 1 TABLET BY MOUTH FOUR TIMES DAILY NEEDED FOR ANXIETY., # 40 tablet, 0 Refills, [facility] #[id number], 176.8, cm, 01/08/21 12:47:00 EDT, Height, 140.3, [...] 11/06/20 13:53:00 EDT, Route to Pharmacy Electronically, [facility] #[id number], 176.8, cm, 11/06/20 13:3... Start Date: 11/06/20 [...] 02/26/21 14:39:00 EDT, Route to Pharmacy Electronically, [facility] #[id number], Partial fill upon patientrequest if the prescription is for a schedule II op... Start Date: 02/26/21 Stop Date: 05/27/21 Status: Ordered losartan 50 mg oral tablet 50 mg, 1, tablet, By Mouth, Daily, # 30 tablet, Refills 3, Tot. Refills 3, Maintenance, 11/22/20 14:41:00 EDT, Route to Pharmacy Electronically, [facility] #[id number], Partial fill upon patientrequest if the prescription is for a schedule II op... Start Date: 11/22/20 Status: Ordered metFORMIN 750 mg oral tablet, extended release 1 tablet = 750 mg, By Mouth, Daily, # 60 tablet, 0 Refills, Maintenance, 01/22/21 16:38:00 EDT, ER Tablet, [facility] #[id number], Partial fill upon patient request if the prescription is for a schedule II opioid drug., 176.8, cm, 01/22/21 16:00:... Start Date: 01/22/21 Status: Ordered Problem List Condition Effective Dates [...]
--- OUTSIDE RECORDS SUMMARY | 2023-09-25 00:32 | XMS_ITS | Continuity of Care Document ---
Author Organization [facility] Address [address] [place] [address]- Care Team Providers Care Polisher Sand Name Role Phone Margarito Berger MD Primary Care Physician Encounter [facility] [place] Date(s): 05/18/21 - 06/17/21 [facility] [address] [place] [address]- Attending Physician: Admtr, Lona Admitting Physician: Admtr, Jayden8 Referring Physician: Admtr, Ar8 Allergies, Adverse Reactions, [...] 0 Refills, Soft Stop, 11/06/20 13:52:00 EDT, [facility] #[id number], 176.8, cm, 11/06/20 13:38:00 EDT, Height, 140.3, kg, 11/06/20 13:38:00 EDT, Dry W... Start Date: 11/06/20 Status: Ordered hydrOXYzine hydrochloride 50 mg oral tablet 1 tablet, By Mouth, 4 times a day, PRN NEEDED FOR ANXIETY, # 40 tablet, 0 Refills, [facility] #[id number], 176.8, cm, 05/18/21 14:17:00 EST, Height, 140.3, kg, 11/06/20 13:38:00 EDT, Dry Weight Start Date: 05/22/21 Status: Ordered ibuprofen 800 mg oral tablet 800 mg, 1, tablet, By Mouth, 3 times a day, PRN, with food or milk, # 90 tablet, Refills 2, Tot. Refills 2, Maintenance, as needed for pain, 04/10/21 11:47:00 EST, Route to Pharmacy Electronically, [facility] #[id number], 176.8, cm, 02/01/21 16:0... Start Date: 04/10/21 [...] 02/26/21 14:39:00 EDT, Route to Pharmacy Electronically, [facility] #[id number], Partial fill upon patientrequest if the prescription is for a schedule II op... Start Date: 02/26/21 Stop Date: 05/27/21 Status: Ordered losartan 50 mg oral tablet 1 tablet = 50 mg, By Mouth, Daily, for 30 days, # 30 tablet, 5 Refills, Physician Stop 10/13/21 14:50:00 EDT, 04/16/21 14:50:00 EST, [facility] #[id number], 176.8, cm, 02/01/21 16:07:00 EDT, Height, 140.3, kg, 11/06/20 13:38:00 EDT, Dry Weight Start Date: 04/16/21 Stop Date: 10/13/21 Status: Ordered metFORMIN 750 mg oral tablet, extended release 1 tablet, By Mouth, Daily, # 60 tablet, 5 Refills, [facility] #[id number], 176.8, cm, 02/02/2116:07:00 EDT, Height, 140.3, kg, 11/06/20 13:38:00 EDT, Dry Weight Start Date: 03/30/21 Status: Ordered oxyCODONE 5 mg oral tablet 5 mg, 1, tablet, By Mouth, Every 8 hours, PRN, Take only as needed, # 45 tablet, Refills 0, Tot. Refills 0, Maintenance, Pain , Moderate, 06/04/21 14:35:00 EST, Route to Pharmacy Electronically, [facility] #[id number], Partial fill upon patient r... Start Date: 06/04/21 Status: Ordered ProAir HFA 90 mcg/inh inhalation aerosol with adapter 2, puffs, Inhalation, Every 6 hours, PRN, # 8.5 Gm, Refills 5, Route to Pharmacy Electronically, [id number], [facility] #[id number], 176.8, cm, 05/18/21 14:17:00 EST, Height, 140.3, kg, 11/06/20 13:38:00 EDT, Dry Weight Start Date: 06/13/21 Status: Ordered triamcinolone 0.1% topical cream See Instructions, APPLY TOPICALLY TO THE AFFECTED AREA ON ARMS AND LEGS THREE TIMES DAILY. MIX WITH16 OUNCES OF EUCERIN CREAM, # 80 Gm, 0 Refills, [facility] #[id number], 14, APPLY TOPICALLY TOTHE AFFECTED AREA ON [...]
--- OUTSIDE RECORDS SUMMARY | 2023-09-25 00:32 | XMS_ITS | Continuity of Care Document ---
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 Refills 1, Acute 01/04/22 12:00:00 EDT, Pain , Moderate, 12/14/21 16:38:00 EDT, Route to Pharmacy Electronically, [facility] #[id number], Partial fill upon patient reque... Start Date: 12/14/21 Stop Date: 01/04/22 Status: Ordered EpiPen 2-Michael 0.3 mg injectable kit = 0.3 mg, Intramuscular, Once, PRN severe allergic reaction, may repeat if necessary, # 2 each, 0 Refills, Soft Stop, 11/06/20 13:52:00 EDT, [facility] #[id number], 176.8, cm, 11/06/20 13:38:00 EDT, Height, 140.3, kg, 11/06/20 13:38:00 EDT, Dry W... Start Date: 11/06/20 Status: Ordered ibuprofen 800 mg oral tablet 1, tablet, By Mouth, 3 times a day, PRN, TAKE WITH FOOD OR MILK., # 90 tablet, Refills 1, NEEDEDFOR PAIN(, Route to Pharmacy Electronically, [facility] #[id number], 176.8, cm, 11/05/21 15:43:00 EDT, Height, 123.4, [...] Mouth, Daily, # 30 tablet, 5 Refills, [facility] #[id number], 176.8, cm, 11/05/2214:43:00 EDT, Height, 123.4, kg, 10/12/21 15:16:00 EDT, Dry Weight Start Date: 11/13/21 Status: Ordered metFORMIN 750 mg oral tablet, extended release 1 tablet, By Mouth, Daily, # 60 tablet, 5 Refills, [facility] #[id number], 176.8, cm, 02/02/2116:07:00 EDT, Height, 140.3, kg, [...] 09/28/21 17:08:00 EDT, Route to Pharmacy Electronically, [facility] #[id number],... Start Date: 09/28/21 Stop Date: 10/13/21 Status: Ordered oxyCODONE 5 mg oral tablet 5 mg, 1, tablet, By Mouth, Every 8 hours, PRN, mass pat ok, ok for less. Take only as needed., # 45tablet, Refills 0, Tot. Refills 0, Maintenance, Pain , Moderate, 12/28/21 12:33:00 EDT, Route to Pharmacy Electronically, [facility] #[id number],... Start Date: 12/28/21 Stop Date: 01/27/22 Status: Ordered phentermine 30 mg oral capsule 1 capsule = 30 mg, By Mouth, Daily in AM, for 30 days, # 30 capsule, 0 Refills, Acute 01/05/22 12:24:00 EDT, 12/06/21 12:24:00 EDT, Capsule, [facility] #[id number], Partial fill upon patient request if the prescription is for a schedule II opioid Start Date: 12/06/21 Stop Date: 01/05/22 Status: Ordered ProAir HFA 90 mcg/inh inhalation aerosol with adapter 2, puffs, Inhalation, Every 6 hours, PRN, # 8.5 Gm, Refills 5, Route to Pharmacy Electronically, [id number], [facility] #[id number], 176.8, cm, 10/12/21 15:16:00 EDT, Height, 123.4, kg, 10/12/21 15:16:00 EDT, Dry Weight Start Date: 11/05/21 Status: Ordered triamcinolone 0.1% topical cream See Instructions, APPLY TOPICALLY TO THE AFFECTED AREA ON ARMS AND LEGS THREE TIMES DAILY. MIX WITH16 OUNCES OF EUCERIN CREAM, # 80 Gm, 0 Refills, [facility] #[id number], 14, APPLY TOPICALLY TOTHE AFFECTED AREA ON [...] Team Personnel Name: Margarito Berger MD Address: [address] [place] [address]
--- OUTSIDE RECORDS SUMMARY | 2023-09-25 00:32 | XMS_ITS | Continuity of Care Document ---
Author Organization [facility] Address [address] [place] [address]- Care Team Providers Care Human Resources Receptionist Name Role Phone Ab FRAGA, Margarito Dolan Primary Care Physician Encounter [facility] Date(s): 04/10/21 - 05/10/21 [facility] [address] [place] [address]- Allergies, Adverse Reactions, Alerts No Known Medication [...] 6 Refills, Maintenance, 01/08/21 12:55:00 EDT, Powder, [facility] #[id number], Partial fill upon patient request if the prescription is for a schedule II opioid drug., 2 puffs Inhalatio... Start Date: 01/08/21 Status: Ordered EpiPen 2-Michael 0.3 mg injectable kit = 0.3 mg, Intramuscular, Once, PRN severe allergic reaction, may repeat if necessary, # 2 each, 0 Refills, Soft Stop, 11/06/20 13:52:00 EDT, [facility] #[id number], 176.8, cm, 11/06/20 13:38:00 EDT, Height, 140.3, kg, 11/06/20 13:38:00 EDT, Dry W... Start Date: 11/06/20 Status: Ordered hydrOXYzine hydrochloride 50 mg oral tablet See Instructions, TAKE 1 TABLET BY MOUTH FOUR TIMES DAILY NEEDED FOR ANXIETY, # 40 tablet, 0 Refills, Acute 05/16/21 8:11:00 EST, 04/18/21 8:09:00 EST, [facility] #[id number], 176.8, cm, 04/16/21 14:48:00 EST, Height, 140.3, kg, 11/06/20 13:38... Start Date: 04/18/21 Stop Date: 05/16/21 Status: Ordered hydrOXYzine hydrochloride 50 mg oral tablet See Instructions, TAKE 1 TABLET BY MOUTH FOUR TIMES DAILY NEEDED FOR ANXIETY., # 40 tablet, 0 Refills, Maintenance, 03/23/21 12:03:00 EST, [facility] #[id number], 176.8, cm, 02/01/21 16:07:00EDT, Height, 140.3, kg, 11/06/20 13:38:00 EDT, Dry... Start Date: 03/23/21 Status: Ordered hydrOXYzine hydrochloride 50 mg oral tablet See Instructions, TAKE 1 TABLET BY MOUTH FOUR TIMES DAILY NEEDED FOR ANXIETY., # 40 tablet, 0 Refills, [facility] #[id number], 176.8, cm, 01/08/21 12:47:00 EDT, Height, 140.3, [...] 04/10/21 11:47:00 EST, Route to Pharmacy Electronically, [facility] #[id number], 176.8, cm, 02/01/21 16:0... Start Date: 04/10/21 [...] 02/26/21 14:39:00 EDT, Route to Pharmacy Electronically, [facility] #[id number], Partial fill upon patientrequest if the prescription is for a schedule II op... Start Date: 02/26/21 Stop Date: 05/27/21 Status: Ordered losartan 50 mg oral tablet 50 mg, 1, tablet, By Mouth, Daily, # 30 tablet, Refills 3, Tot. Refills 3, Maintenance, 11/22/20 14:41:00 EDT, Route to Pharmacy Electronically, [facility] #[id number], Partial fill upon patientrequest if the prescription is for a schedule II op... Start Date: 11/22/20 Status: Ordered losartan 50 mg oral tablet 1 tablet = 50 mg, By Mouth, Daily, for 30 days, # 30 tablet, 5 Refills, Physician Stop 10/13/21 14:50:00 EDT, 04/16/21 14:50:00 EST, [facility] #[id number], 176.8, cm, 02/01/21 16:07:00 EDT, Height, 140.3, kg, 11/06/20 13:38:00 EDT, Dry Weight Start Date: 04/16/21 Stop Date: 10/13/21 Status: Ordered metFORMIN 750 mg oral tablet, extended release 1 tablet, By Mouth, Daily, # 60 tablet, 5 Refills, [facility] #[id number], 176.8, cm, 02/02/2116:07:00 EDT, Height, 140.3, kg, 11/06/20 13:38:00 EDT, Dry Weight Start Date: 03/30/21 Status: Ordered oxyCODONE 5 mg oral tablet 5 mg, 1, tablet, By Mouth, Every 8 hours, MassPAT okay Okay to fill for less, # 20 tablet, Refills 0, Tot. Refills 0, Maintenance, 05/09/21 16:50:00 EST, Route to Pharmacy Electronically, [facility] #[id number], Partial fill upon patient request... Start Date: 05/09/21 Stop Date: 05/15/21 Status: Ordered phentermine 30 mg oral capsule 1 capsule = 30 mg, By Mouth, Daily in AM, for 30 days, # 30 capsule, 0 Refills, Acute 05/16/21 15:25:00 EST, 04/16/21 15:25:00 EST, Capsule, [facility] #[id number], Partial fill upon patient request if the prescription is for a schedule II opioid... Start Date: 04/16/21 Stop Date: 05/16/21 Status: Ordered triamcinolone 0.1% topical cream See Instructions, APPLY TOPICALLY TO THE AFFECTED AREA ON ARMS AND LEGS THREE TIMES DAILY FOR 14 DAYS. MIX WITH 16 OUNCES EUCERIN CREAM, # 80 Gm, 0 Refills, Maintenance, 03/23/21 12:03:00 EST, [facility] #[id number], 25, APPLY TOPICALLY TO THE AF... Start [...]
--- OUTSIDE RECORDS SUMMARY | 2023-09-25 00:32 | XMS_ITS | Continuity of Care Document ---
Author Organization [facility] Address [address] [place] [address]- Care Team Providers Care Ornament Setter Name Role Phone Margarito Berger MD Primary Care Physician Encounter [facility] Date(s): 07/12/23 - 08/11/23 [facility] [address] [place] [address]- Allergies, Adverse Reactions, Alerts No Known Medication [...] tablet, 0 Refills, Maintenance, 05/28/23 8:20:00 EST, [facility] #[id number], 176.8, cm, 04/30/23 7:39:00 EST, Height, 127.4, kg, 05/17/22 4:58:00 EST, Dry Weight Start Date: 05/28/23 Stop Date: 06/07/23 Status: Ordered cyclobenzaprine 10 mg oral tablet 1, tablet, By Mouth, 3 times a day, PRN, # 60 tablet, Refills 0, Tot. Refills 0, Maintenance, NEEDED FOR SPASMS, 07/24/23 17:31:00 EDT, Route to Pharmacy Electronically, [facility] #[id number], 176.8, cm, 04/30/23 7:39:00 EST, Height, 127.4, k... Start Date: 07/24/23 Status: Ordered diclofenac sodium 75 mg oral delayed release tablet 1 tablet, By Mouth, 2 times a day with meals, DIRECTED., # 60 tablet, 5 Refills, Maintenance, 07/01/23 20:55:00 EST, [id number], 176.8, cm, 04/30/23 7:39:00 EST, Height, 127.4, kg, 05/17/22 4:58:00 EST, Dry Weight Start Date: 07/01/23 Status: Ordered doxycycline hyclate 100 mg oral tablet 1 tablet, By Mouth, 2 times a day, # 28 tablet, 0 Refills, Maintenance, 07/16/23 17:07:00 EDT, [id number], 176.8, cm, 04/30/23 7:39:00 EST, Height, 127.4, kg, 05/17/22 4:58:00 EST, Dry Weight Start Date: 07/16/23 Stop Date: 07/30/23 Status: Ordered EpiPen 2-Michael 0.3 mg injectable kit = 0.3 mg, Intramuscular, Once, PRN severe allergic reaction, may repeat if necessary, # 2 each, 0 Refills, Soft Stop, 01/24/23 12:05:00 EDT, [id number], 176.8, cm, 01/24/23 10:59:00 EDT, Height, 127.4, kg, 05/17/22 4:58:00 EST, Dry We... Start Date: 01/24/23 Status: Ordered hydrOXYzine hydrochloride 50 mg oral tablet 1 tablet = 50 mg, By Mouth, 3 times a day, PRN as needed for itching, # 90 tablet, 1 Refills, Maintenance, 06/18/23 13:07:00 EST, [facility] #[id number], 176.8, cm, 04/30/23 7:39:00 EST, Height,127.4, kg, 05/17/22 4:58:00 EST, Dry Weight Start Date: 06/18/23 Status: Ordered hydrOXYzine hydrochloride 50 mg oral tablet 1 tablet = 50 mg, By Mouth, 3 times a day, # 90 tablet, 1 Refills, Maintenance, 04/25/23 11:23:00 EST, [facility] #[id number], 176.8, cm, 01/24/23 10:59:00 EDT, Height, 127.4, kg, 05/17/22 4:58:00 EST, Dry Weight Start Date: 04/25/23 Status: Ordered losartan 50 mg oral tablet 1 tablet, By Mouth, Daily, # 90 tablet, 1 Refills, Maintenance, 06/05/23 18:32:00 EST, [facility] #[id number], 176.8, cm, 04/30/23 7:39:00 EST, Height, 127.4, kg, 05/17/22 4:58:00 EST, Dry Weight Start Date: 06/05/23 Status: Ordered metFORMIN 750 mg oral tablet, extended release 1 tablet = 750 mg, By Mouth, Daily, # 90 tablet, 1 Refills, Maintenance, 05/19/23 11:12:00 EST, ER Tablet, [facility] #[id number], Partial fill upon patient request if the prescription is for a schedule II opioid drug., 176.8, cm, 04/30/23 7:39:0... Start Date: 05/19/23 Status: Ordered mupirocin 2% topical ointment See Instructions, APPLY TOPICALLY TO THE AFFECTED AREA THREE TIMES DAILY FOR 14 DAYS, # 22 Gm, 0 Refills, Maintenance, 06/03/23 13:22:00 EST, [facility] #[id number], APPLY TOPICALLY TO THE AFFECTED AREA THREE [...] 08/11/23 7:36:00 EDT, Route to Pharmacy Electronically, [facility]... Start Date: 08/11/23 Stop Date: 08/26/23 Status: Ordered predniSONE 20 mg oral tablet See Instructions, 2 tablets By Mouth Daily for 5 days and then 1 tablet by mouth daily for 5 days, # 15 tablet, 0 Refills, Soft Stop, 01/08/23 16:53:00 EDT, Tablet, [facility] #[id number], Partial fill upon patient request if the prescription is... Start Date: 01/08/23 Status: Ordered triamcinolone 0.025% topical ointment 1 application, Topically, 3 times a day, Apply to affected area, # 15 Gm, 1 Refills, Maintenance, 06/03/23 9:33:00 EST, Ointment, [facility] #[id number], Partial fill upon patient request if theprescription is for a schedule II opioid drug., 1 a... Start Date: 06/03/23 Status: Ordered Ventolin HFA 108 mcg/inh inhalation aerosol with adapter 2 puffs, Inhalation, Every 6 hours, # 18 Gm, 5 Refills, Maintenance, 05/25/23 6:11:00 EST, [facility] #[id number], 176.8, cm, 04/30/23 7:39:00 EST, Height, 127.4, [...] Team Personnel Name: Margarito Berger MD Position: [facility] Physician - Primary Care Member Role: PCP Address: Address: [address] [place] [id number] Name: Bhumika Castillo RN Position: [facility] RN Member Role: Primary Care Nurse Name: Jaja Arshad RN Position: S RN Member Role: Primary Care Nurse Name: Ludwin Butcher RN Position: S RN Member Role: Primary Care Nurse Care Team Related Persons Name: GARRETT FUENTES Address: home [address] [place] [address] Name: MARLO REINOSO Name: PT STS, NONE Name: EFFIE RICKETTS Name: RANDALL RICKETTS
--- OUTSIDE RECORDS SUMMARY | 2023-09-25 00:32 | XMS_ITS | Continuity of Care Document ---
Author Organization [facility] Address [address] [place] [address]- Care Team Providers Care Beam Doffer Name Role Phone Margarito Berger MD Primary Care Phys[id number] 01/11/22 [facility] [address] [place] [address]- Encounter Diagnosis Neck pain(Discharge Diagnosis) - 01/04/22 Back pain(Discharge Diagnosis) - 01/04/22 Attending Physician: Margarito Berger MD Allergies, Adverse [...] 0 Refills, Soft Stop, 11/06/20 13:52:00 EDT, [facility] #[id number], 176.8, cm, 11/06/20 13:38:00 EDT, Height, 140.3, kg, 11/06/20 13:38:00 EDT, Dry W... Start Date: 11/06/20 Status: Ordered hydrOXYzine hydrochloride 50 mg oral tablet See Instructions, TAKE 1 TABLET BY MOUTH FOUR TIMES DAILY FOR 12 DAYS NEEDED FOR ANXIETY, # 48 tablet, 0 Refills, Maintenance, 01/04/22 15:54:00 EDT, [facility] #[id number], 176.8, cm, 12/14/21 16:29:00 EDT, Height, 123.4, kg, 10/12/21 15:16:0... Start Date: 01/04/22 Status: Ordered ibuprofen 800 mg oral tablet 1, tablet, By Mouth, 3 times a day, PRN, TAKE WITH FOOD OR MILK., # 90 tablet, Refills 5, Maintenance, NEEDED FOR PAIN(, 01/04/22 10:09:00 EDT, Route to Pharmacy Electronically, [facility] #[id number], 176.8, cm, 12/14/21 16:29:00 EDT, Height,... Start [...] Mouth, Daily, # 30 tablet, 5 Refills, [facility] #[id number], 176.8, cm, 11/05/2214:43:00 EDT, Height, 123.4, kg, 10/12/21 15:16:00 EDT, Dry Weight Start Date: 11/13/21 Status: Ordered magnesium oxide 250 mg oral tablet See Instructions, TAKE 1 TABLET BY MOUTH DAILY AT BEDTIME FOR 14 DAYS, # 14 tablet, 0 Refills, Maintenance, 01/04/22 15:54:00 EDT, [facility] #[id number], 176.8, cm, 12/14/21 16:29:00 EDT, Height, 123.4, kg, 10/12/21 15:16:00 EDT, Dry Weight Start Date: 01/04/22 Status: Ordered metFORMIN 750 mg oral tablet, extended release 1 tablet, By Mouth, Daily, # 60 tablet, 5 Refills, [facility] #[id number], 176.8, cm, 02/02/2116:07:00 EDT, Height, 140.3, kg, [...] 09/28/21 17:08:00 EDT, Route to Pharmacy Electronically, [facility] #[id number],... Start Date: 09/28/21 Stop Date: 10/13/21 Status: Ordered oxyCODONE 5 mg oral tablet 5 mg, 1, tablet, By Mouth, Every 8 hours, PRN, mass pat ok, ok for less. Take only as needed., # 45tablet, Refills 0, Tot. Refills 0, Maintenance, Pain , Moderate, 12/28/21 12:33:00 EDT, Route to Pharmacy Electronically, [facility] #[id number],... Start Date: 12/28/21 Stop Date: 01/27/22 Status: [...] Gm, Refills 5, Route to Pharmacy Electronically, [id number], [facility] #[id number], 176.8, cm, 10/12/21 15:16:00 EDT, Height, 123.4, kg, 10/12/21 15:16:00 EDT, Dry Weight Start Date: 11/05/21 Status: Ordered triamcinolone 0.1% topical cream See Instructions, APPLY TOPICALLY TO THE AFFECTED AREA ON ARMS AND LEGS THREE TIMES DAILY. MIX WITH16 OUNCES OF EUCERIN CREAM, # 80 Gm, 0 Refills, [facility] #[id number], 14, APPLY TOPICALLY TOTHE AFFECTED AREA ON [...] Dates Health Status Clini сергей Service Informant Neck pain Discharge Diagnosis 01/04/22 Back pain Discharge Diagnosis 01/04/22 Vital Signs Most recent to oldest [Reference Range]: 1 Height 176.8 cm (01/04/22 3:55 PM) Weight 127 kg (01/04/22 3:55 PM) Pulse Rate [55-90 bpm] 112 bpm *H* (01/04/22 3:55 PM) Body Mass Index [18.5-24.99] 40.63 *>HHI* (01/04/22 3:55 PM) Blood Pressure [90-138/55-84 mm Hg] 124/ 80mm Hg (01/04/22 3:55 PM) Blood pressure sites Arm, right (01/04/22 3:55 PM) Weight Obtained Via Standing scale (01/04/22 3:55 PM) Social History Social History Type Response Smoking Status 5-9 cigarettes (betw een 1/4 to 1/2 pack)/day in last 30 days; Tobacco use times per day: 7; entered on: 12/31/18 Sex Care Team Personnel Name: Margarito Berger MD Address: [address] [place], [place] [address]
--- OUTSIDE RECORDS SUMMARY | 2023-09-25 00:32 | XMS_ITS | Continuity of Care Document ---
Author Organization [facility] Address [address] [place] [address]- Care Team Providers Care Correctional Cook Name Role Phone Margarito Berger MD Primary Care Physician Encounter 05/19/22 - 05/29/22 [facility] [address] [place] [address]- Discharge Disposition: GOALS MET Allergies, Adverse Reactions, Alerts No Known Medication [...] 05/18/22 7:52:00 EST, Route to Pharmacy Electronically, [facility], Partial fill upon patient request... Start Date: 05/18/22 Stop Date: 06/01/22 Status: Ordered EpiPen 2-Michael 0.3 mg injectable kit = 0.3 mg, Intramuscular, Once, PRN severe allergic reaction, may repeat if necessary, # 2 each, 0 Refills, Soft Stop, 11/06/20 13:52:00 EDT, [facility] #[id number], 176.8, cm, 11/06/20 13:38:00 EDT, Height, 140.3, [...] tablet, 3 Refills, Maintenance, 05/20/22 11:48:00 EST, [facility] #[id number], 176.8, cm, 05/01/22 13:41:00 EST, Height, 127.4, [...] 04/09/22 15:33:00 EST, Route to Pharmacy Electronically, [id number], [facility] #[id number], 176.8, cm, 02/28/22 10:47:00 EDT, Height, 123.4,... [...] MD Position: [facility] Primary Care Physician Member Role: PCP Address: Address: [address] [place] [address] Name: Bhumika Castillo RN Position: [facility] SN RN Member Role: Primary Care Nurse Name: Jaja Arshad RN Position: [facility] RN Member Role: Primary Care Nurse Name: Ludwin Butcher RN Position: [facility] RN Member Role: Primary Care Nurse Care Team Related Persons Name: GARRETT FUENTES Address: [address] [place] [address] Name: MARLO REINOSO Name: PT STS, NONE Name: EFFIE RICKETTS Name: RANDALL RICKETTS
--- OUTSIDE RECORDS SUMMARY | 2023-09-25 00:33 | XMS_ITS | Continuity of Care Document ---
Author Organization [facility] Address [address] [place] [address]- Care Team Providers Care Digital Analytics Manager Name Role Phone Ab FRAGA, Margarito Dolan Primary Care Physician Encounter [facility] [place] Date(s): 03/23/21 - 04/22/21 [facility] [address] [place] [address]- Allergies, Adverse Reactions, Alerts No Known Medication [...] 6 Refills, Maintenance, 01/08/21 12:55:00 EDT, Powder, [facility] #[id number], Partial fill upon patient request if the prescription is for a schedule II opioid drug., 2 puffs Inhalatio... Start Date: 01/08/21 Status: Ordered EpiPen 2-Michael 0.3 mg injectable kit = 0.3 mg, Intramuscular, Once, PRN severe allergic reaction, may repeat if necessary, # 2 each, 0 Refills, Soft Stop, 11/06/20 13:52:00 EDT, [facility] #[id number], 176.8, cm, 11/06/20 13:38:00 EDT, Height, 140.3, kg, 11/06/20 13:38:00 EDT, Dry W... Start Date: 11/06/20 Status: Ordered hydrOXYzine hydrochloride 50 mg oral tablet See Instructions, TAKE 1 TABLET BY MOUTH FOUR TIMES DAILY NEEDED FOR ANXIETY, # 40 tablet, 0 Refills, Acute 05/16/21 8:11:00 EST, 04/18/21 8:09:00 EST, [facility] #[id number], 176.8, cm, 04/16/21 14:48:00 EST, Height, 140.3, kg, 11/06/20 13:38... Start Date: 04/18/21 Stop Date: 05/16/21 Status: Ordered hydrOXYzine hydrochloride 50 mg oral tablet See Instructions, TAKE 1 TABLET BY MOUTH FOUR TIMES DAILY NEEDED FOR ANXIETY., # 40 tablet, 0 Refills, Maintenance, 03/23/21 12:03:00 EST, [facility] #[id number], 176.8, cm, 02/01/21 16:07:00EDT, Height, 140.3, kg, 11/06/20 13:38:00 EDT, Dry... Start Date: 03/23/21 Status: Ordered hydrOXYzine hydrochloride 50 mg oral tablet See Instructions, TAKE 1 TABLET BY MOUTH FOUR TIMES DAILY NEEDED FOR ANXIETY., # 40 tablet, 0 Refills, [facility] #[id number], 176.8, cm, 01/08/21 12:47:00 EDT, Height, 140.3, [...] 04/10/21 11:47:00 EST, Route to Pharmacy Electronically, [facility] #[id number], 176.8, cm, 02/01/21 16:0... Start Date: 04/10/21 [...] 02/26/21 14:39:00 EDT, Route to Pharmacy Electronically, [facility] #[id number], Partial fill upon patientrequest if the prescription is for a schedule II op... Start Date: 02/26/21 Stop Date: 05/27/21 Status: Ordered losartan 50 mg oral tablet 50 mg, 1, tablet, By Mouth, Daily, # 30 tablet, Refills 3, Tot. Refills 3, Maintenance, 11/22/20 14:41:00 EDT, Route to Pharmacy Electronically, [facility] #[id number], Partial fill upon patientrequest if the prescription is for a schedule II op... Start Date: 11/22/20 Status: Ordered losartan 50 mg oral tablet 1 tablet = 50 mg, By Mouth, Daily, for 30 days, # 30 tablet, 5 Refills, Physician Stop 10/13/21 14:50:00 EDT, 04/16/21 14:50:00 EST, [facility] #[id number], 176.8, cm, 02/01/21 16:07:00 EDT, Height, 140.3, kg, 11/06/20 13:38:00 EDT, Dry Weight Start Date: 04/16/21 Stop Date: 10/13/21 Status: Ordered metFORMIN 750 mg oral tablet, extended release 1 tablet, By Mouth, Daily, # 60 tablet, 5 Refills, [facility] #[id number], 176.8, cm, 02/02/2116:07:00 EDT, Height, 140.3, kg, 11/06/20 13:38:00 EDT, Dry Weight Start Date: 03/30/21 Status: Ordered oxyCODONE 5 mg oral tablet 5 mg, 1, tablet, By Mouth, Every 8 hours, # 20 tablet, Refills 0, Tot. Refills 0, Acute 04/23/21 12:00:00 EST, 04/16/21 15:26:00 EST, Route to Pharmacy Electronically, [facility] #[id number], Partial fill upon patient request if the prescription... Start Date: 04/16/21 Stop Date: 04/23/21 Status: Ordered phentermine 30 mg oral capsule 1 capsule = 30 mg, By Mouth, Daily in AM, for 30 days, # 30 capsule, 0 Refills, Acute 05/16/21 15:25:00 EST, 04/16/21 15:25:00 EST, Capsule, [facility] #[id number], Partial fill upon patient request if the prescription is for a schedule II opioid... Start Date: 04/16/21 Stop Date: 05/16/21 Status: Ordered triamcinolone 0.1% topical cream See Instructions, APPLY TOPICALLY TO THE AFFECTED AREA ON ARMS AND LEGS THREE TIMES DAILY FOR 14 DAYS. MIX WITH 16 OUNCES EUCERIN CREAM, # 80 Gm, 0 Refills, Maintenance, 03/23/21 12:03:00 EST, [facility] #[id number], 25, APPLY TOPICALLY TO THE AF... Start [...]
--- OUTSIDE RECORDS SUMMARY | 2023-09-25 00:33 | XMS_ITS | Continuity of Care Document ---
Author Organization [facility] Address [address] [place] [address]- Care Team Providers Care Administrative And Program Specialist Name Role Phone Margarito Berger MD Primary Care Physician En[place] [facility] [place] Date(s): 02/10/23 - 03/12/23 [facility] [address] [place] [address]- Allergies, Adverse Reactions, Alerts No Known Medication [...] 02/27/23 17:04:00 EDT, Route to Pharmacy Electronically, [facility] #[id number], Partial fill upon patient request if the prescription is... Start Date: 02/27/23 Status: Ordered diclofenac sodium 75 mg oral delayed release tablet See Instructions, TAKE 1 TABLET BY MOUTH TWICE DAILY WITH FOOD DIRECTED, # 60 tablet, 1 Refills,03/11/23 16:29:00 EST, [facility] #[id number], 176.8, cm, 01/24/23 10:59:00 EDT, Height, 127.4, kg, 05/17/22 4:58:00 EST, Dry Weight Start Date: 03/11/23 Status: Ordered EpiPen 2-Michael 0.3 mg injectable kit = 0.3 mg, Intramuscular, Once, PRN severe allergic reaction, may repeat if necessary, # 2 each, 0 Refills, Soft Stop, 01/24/23 12:05:00 EDT, [facility] #[id number], 176.8, cm, 01/24/23 10:59:00 EDT, Height, 127.4, kg, 05/17/22 4:58:00 EST, Dry We... Start Date: 01/24/23 Status: Ordered hydrOXYzine hydrochloride 50 mg oral tablet 1 tablet = 50 mg, By Mouth, 3 times a day, # 90 tablet, 1 Refills, Maintenance, 02/12/23 8:08:00 EDT, [facility] #[id number], 176.8, cm, 01/24/23 10:59:00 EDT, Height, 127.4, kg, 05/17/22 4:58:00 EST, Dry Weight Start Date: 02/12/23 Status: Ordered losartan 50 mg oral tablet 1 tablet, By Mouth, Daily, # 90 tablet, 1 Refills, Maintenance, 11/28/22 21:33:00 EDT, [facility] #[id number], 176.8, cm, 11/05/22 11:22:00 EDT, Height, 127.4, kg, 05/17/22 4:58:00 EST, Dry Weight Start Date: 11/28/22 Status: Ordered mupirocin 2% topical ointment See Instructions, APPLY TOPICALLY TO THE AFFECTED AREA THREE TIMES DAILY FOR 14 DAYS, # 22 Gm, 0 Refills, Maintenance, 03/11/23 16:29:00 EST, [facility] #[id number], 10, APPLY TOPICALLY TO THE AFFECTED AREA [...] 03/12/23 16:48:00 EST, Route to Pharmacy Electronically, [facility] #[id number], P... Start Date: 03/12/23 Stop Date: 03/27/23 Status: Ordered predniSONE 20 mg oral tablet See Instructions, 2 tablets By Mouth Daily for 5 days and then 1 tablet by mouth daily for 5 days, # 15 tablet, 0 Refills, Soft Stop, 01/08/23 16:53:00 EDT, Tablet, [facility] #[id number], Partial fill upon patient request if the prescription is... Start Date: 01/08/23 Status: Ordered triamcinolone 0.025% topical ointment 1 application, Topically, 2 times a day, for 14 days, # 60 Gm, 3 Refills, Acute 03/27/23 12:53:00 EST, 01/30/23 12:53:00 EDT, Ointment, [facility] #[id number], Partial fill upon patient request if the prescription is for a schedule II opioid drug... Start Date: 01/30/23 Stop Date: 03/27/23 Status: Ordered Ventolin HFA 108 mcg/inh inhalation aerosol with adapter 2 puffs, Inhalation, Every 6 hours, # 8.5 Gm, 6 Refills, Maintenance, 12/23/22 11:39:00 EDT, [facility] #[id number], 176.8, cm, 12/23/22 11:25:00 EDT, Height, 127.4, [...] Primary Care Member Role: PCP Address: Address: [address] [place] [address] Name: Bhumika Castillo RN Position: [facility] SN RN Member Role: Primary Care Nurse Name: Jaja Arshad RN Position: [facility] RN Member Role: Primary Care Nurse Name: Ludwin Butcher RN Position: [facility] RN Member Role: Primary Care Nurse Care Team Related Persons Name: GARRETT FUENTES Address: [address] [place] [address] Name: MARLO REINOSO Name: PT STS, NONE Name: EFFIE RICKETTS Name: RANDALL RICKETTS
--- OUTSIDE RECORDS SUMMARY | 2023-09-25 00:33 | XMS_ITS | Continuity of Care Document ---
Author Organization [facility] Address [address] [place] [address] Dr [address] [place] [address]- Care Team Providers Care Explosive Ordnance Disposal Specialist Name Role Phone Ab FRAGA, Margarito Dolan Primary Care Physician Encounter [facility] [place] Date(s): 11/25/22 - 02/19/[address] [place] [address]- Attending Physician: Ayush Rosenberg MD Allergies, Adverse [...] 01/23/23 17:29:00 EDT, Route to Pharmacy Electronically, [facility] #[id number], Partial fill upon patient request if the prescription is... Start Date: 01/23/23 Status: Ordered diclofenac sodium 75 mg oral delayed release tablet See Instructions, TAKE 1 TABLET BY MOUTH TWICE DAILY WITH FOOD DIRECTED, # 60 tablet, 0 Refills,01/29/23 13:09:00 EDT, [facility] #[id number], 176.8, cm, 01/24/23 10:59:00 EDT, Height, 127.4, kg, 05/17/22 4:58:00 EST, Dry Weight Start Date: 01/29/23 Status: Ordered EpiPen 2-Michael 0.3 mg injectable kit = 0.3 mg, Intramuscular, Once, PRN severe allergic reaction, may repeat if necessary, # 2 each, 0 Refills, Soft Stop, 01/24/23 12:05:00 EDT, [facility] #[id number], 176.8, cm, 01/24/23 10:59:00 EDT, Height, 127.4, kg, 05/17/22 4:58:00 EST, Dry We... Start Date: 01/24/23 Status: Ordered hydrOXYzine hydrochloride 50 mg oral tablet 1 tablet = 50 mg, By Mouth, 3 times a day, # 90 tablet, 1 Refills, Maintenance, 02/12/23 8:08:00 EDT, [facility] #[id number], 176.8, cm, 01/24/23 10:59:00 EDT, Height, 127.4, kg, 05/17/22 4:58:00 EST, Dry Weight Start Date: 02/12/23 Status: Ordered losartan 50 mg oral tablet 1 tablet, By Mouth, Daily, # 90 tablet, 1 Refills, Maintenance, 11/28/22 21:33:00 EDT, [facility] #[id number], 176.8, cm, 11/05/22 11:22:00 EDT, Height, 127.4, kg, 05/17/22 4:58:00 EST, Dry Weight Start Date: 11/28/22 Status: Ordered mupirocin 2% topical ointment See Instructions, APPLY TOPICALLY TO THE AFFECTED AREA THREE TIMES DAILY FOR 14 DAYS, # 22 Gm, 0 Refills, Maintenance, 02/19/23 12:57:00 EDT, [facility] #[id number], 10, APPLY TOPICALLY TO THE AFFECTED AREA THREE TIMES DAILY FOR 14 DAYS, 176.8, c... Start Date: 02/19/23 Status: Ordered oxyCODONE 5 mg oral tablet 5 mg, 1, tablet, By Mouth, Every 8 hours, PRN, mass pat ok, ok for less. TAKE ONLY NEEDED, # 45 tablet, Refills 0, Tot. Refills 0, Maintenance, Pain , Moderate, 02/11/23 9:57:00 EDT, Route to Pharmacy Electronically, [facility] #[id number], Pa... Start Date: 02/11/23 Stop Date: 02/26/23 Status: Ordered predniSONE 20 mg oral tablet See Instructions, 2 tablets By Mouth Daily for 5 days and then 1 tablet by mouth daily for 5 days, # 15 tablet, 0 Refills, Soft Stop, 01/08/23 16:53:00 EDT, Tablet, [facility] #[id number], Partial fill upon patient request if the prescription is... Start Date: 01/08/23 Status: Ordered triamcinolone 0.025% topical ointment 1 application, Topically, 2 times a day, for 14 days, # 60 Gm, 3 Refills, Acute 03/27/23 12:53:00 EST, 01/30/23 12:53:00 EDT, Ointment, [facility] #[id number], Partial fill upon patient request if the prescription is for a schedule II opioid drug... Start Date: 01/30/23 Stop Date: 03/27/23 Status: Ordered Ventolin HFA 108 mcg/inh inhalation aerosol with adapter 2 puffs, Inhalation, Every 6 hours, # 8.5 Gm, 6 Refills, Maintenance, 12/23/22 11:39:00 EDT, [facility] #[id number], 176.8, cm, 12/23/22 11:25:00 EDT, Height, 127.4, [...] Team Personnel Name: Margarito Berger MD [facility] Physician - Primary Care Member Role: PCP Address: Address: [address] [place] [id number] Name: Bhumika Castillo RN Position: [facility] RN Member Role: Primary Care Nurse Name: Jaja Arshad RN Position: [facility] RN Member Role: Primary Care Nurse Name: Ludwin Butcher RN Position: [facility] RN Member Role: Primary Care Nurse Care Team Related Persons Name: GARRETT FUENTES Address: home [address] [place] [address] Name: MARLO REINOSO Name: PT STS, NONE Name: EFFIE RICKETTS Name: RANDALL RICKETTS
--- OUTSIDE RECORDS SUMMARY | 2023-09-25 00:33 | XMS_ITS | Continuity of Care Document ---
Author Organization [facility] Address [address] [place] [address]- Care Team Providers Care Earth Science Technical Officer Name Role Phone Margarito Berger MD Primary Care Physician Encounter [facility] [place] Date(s): 02/27/23 - 03/29/23 [facility] [address] [place] [address]- Allergies, Adverse Reactions, Alerts No Known Medication [...] 03/24/23 12:45:00 EST, Route to Pharmacy Electronically, [facility] #[id number], Partial fill upon patient request if the prescription is... Start Date: 03/24/23 Status: Ordered diclofenac sodium 75 mg oral delayed release tablet See Instructions, TAKE 1 TABLET BY MOUTH TWICE DAILY WITH FOOD DIRECTED, # 60 tablet, 1 Refills,03/11/23 16:29:00 EST, [facility] #[id number], 176.8, cm, 01/24/23 10:59:00 EDT, Height, 127.4, kg, 05/17/22 4:58:00 EST, Dry Weight Start Date: 03/11/23 Status: Ordered EpiPen 2-Michael 0.3 mg injectable kit = 0.3 mg, Intramuscular, Once, PRN severe allergic reaction, may repeat if necessary, # 2 each, 0 Refills, Soft Stop, 01/24/23 12:05:00 EDT, [facility] #[id number], 176.8, cm, 01/24/23 10:59:00 EDT, Height, 127.4, kg, 05/17/22 4:58:00 EST, Dry We... Start Date: 01/24/23 Status: Ordered hydrOXYzine hydrochloride 50 mg oral tablet 1 tablet = 50 mg, By Mouth, 3 times a day, # 90 tablet, 1 Refills, Maintenance, 02/12/23 8:08:00 EDT, [facility] #[id number], 176.8, cm, 01/24/23 10:59:00 EDT, Height, 127.4, kg, 05/17/22 4:58:00 EST, Dry Weight Start Date: 02/12/23 Status: Ordered losartan 50 mg oral tablet 1 tablet, By Mouth, Daily, # 90 tablet, 1 Refills, Maintenance, 11/28/22 21:33:00 EDT, [facility] #[id number], 176.8, cm, 11/05/22 11:22:00 EDT, Height, 127.4, kg, 05/17/22 4:58:00 EST, Dry Weight Start Date: 11/28/22 Status: Ordered mupirocin 2% topical ointment See Instructions, APPLY TOPICALLY TO THE AFFECTED AREA THREE TIMES DAILY FOR 14 DAYS, # 22 Gm, 0 Refills, Maintenance, 03/27/23 8:33:00 EST, [facility] #[id number], 10, APPLY TOPICALLY TO THE AFFECTED AREA THREE TIMES DAILY FOR 14 DAYS, 176.8, cm... Start Date: 03/27/23 Status: Ordered oxyCODONE 5 mg oral tablet 5 mg, 1, tablet, By Mouth, Every 8 hours, PRN, mass pat ok, ok for less. TAKE ONLY NEEDED, # 45 tablet, Refills 0, Tot. Refills 0, Maintenance, Pain , Moderate, 03/24/23 14:27:00 EST, Route to Pharmacy Electronically, [facility] #[id number], P... Start Date: 03/24/23 Stop Date: 04/08/23 Status: Ordered predniSONE 20 mg oral tablet See Instructions, 2 tablets By Mouth Daily for 5 days and then 1 tablet by mouth daily for 5 days, # 15 tablet, 0 Refills, Soft Stop, 01/08/23 16:53:00 EDT, Tablet, [facility] #[id number], Partial fill upon patient request if the prescription is... Start Date: 01/08/23 Status: Ordered Ventolin HFA 108 mcg/inh inhalation aerosol with adapter 2 puffs, Inhalation, Every 6 hours, # 8.5 Gm, 6 Refills, Maintenance, 12/23/22 11:39:00 EDT, [facility] #[id number], 176.8, cm, 12/23/22 11:25:00 EDT, Height, 127.4, [...] Team Personnel Name: Margarito Berger MD Position: [facility] Physician - Primary Care Member Role: PCP Address: Address: [address] [place] [id number] Name: Bhumika Castillo RN Position: [facility] RN Member Role: Primary Care Nurse Name: Jaja Arshad RN Position: S RN Member Role: Primary Care Nurse Name: Ludwin Butcher RN Position: S RN Member Role: Primary Care Nurse Care Team Related Persons Name: GARRETT FUENTES Address: home [address] [place] [address] Name: MARLO REINOSO Name: PT STS, NONE Name: EFFIE RICKETTS Name: RANDALL RICKETTS
--- OUTSIDE RECORDS SUMMARY | 2023-09-25 00:33 | XMS_ITS | Continuity of Care Document ---
Author Organization [facility] Address [address] [place] [address]- Care Team Providers Care Furniture Repairer Name Role Phone Tra Kang MD Primary Care Physician Encounter [facility] [place] Date(s): 08/05/19 - 08/12/19 [facility] [address] [place] [address]- [place] Encounter Diagnosis Cough(Discharge Diagnosis) - 08/05/19 Chronic knee pain(Discharge Diagnosis) - 08/05/19 Chronic use of opiate for therapeutic purpose(Discharge Diagnosis) - 08/05/19 Hypertension(Discharge Diagnosis) - 08/05/19 SKIP - Obstructive sleep apnea(Discharge Diagnosis) - 08/05/19 Attending Physician: Tra Kang MD Allergies, Adverse [...] 10/04/19 10:45:00 EDT, 08/05/19 10:45:00 EDT, Tablet, [facility] #[id number], 176.8,cm, 12/31/18 14:22:00 EDT, Height Start Date: [...] 08/02/19 8:49:00 EDT, Route to Pharmacy Electronically, [facility] #[id number], Partial fill upon patient request, 08/03/19, 17... Start Date: 08/02/19 Stop Date: 08/30/19 Status: Ordered triamcinolone 0.1% topical cream See Instructions, APPLY EXTERNALLY TO TO THE AFFECTED AREA THREE TIMES DAILY FOR 14 DAYS TO ACTIVE RASH ON ARMS OR LEGS, # 90 Gm, 1 Refills, Maintenance, 08/05/19 10:47:00 EDT, [facility] #[id number], APPLY EXTERNALLY TO TO THE AFFECTED AREA THRE... Start Date: 08/05/19 Status: Ordered Problem List Condition Effective Dates Status Health Status Inform ant Chronic knee pain(Confirmed) Active Chronic low back pain(Confirmed) Active Hypertension(Confirmed) Active Anxiety and depression(Confirmed) Active SKIP - Obstructive sleep apnea(Confirmed) Active Chronic use of opiate for th erapeutic purpose(Confirmed) Active Diagnosis Diagnosis Type Effective Dates Health Status Clinical Service Informant Cough Discharge Diagnosis 08/05/19 Chronic knee pain Discharge Diagnosis 08/05/19 Chronic use of opiate for therapeutic purpose Discharge Diagnosis 08/05/19 Hypertension Discharge Diagnosis 08/05/19 SKIP - Obstructive sleep apnea Discharge Diagnosis 08/05/19 Social History Social History Type Response Smoking Status 5-9 cigarettes (betw een 1/4 to 1/2 pack)/day in last 30 days; Tobacco use times per day: 7; entered on: 12/31/18 Sex
--- OUTSIDE RECORDS SUMMARY | 2023-09-25 00:33 | XMS_ITS | Continuity of Care Document ---
Author Organization [facility] Address [address] [place] [address]- Care Team Providers Care Test Preparer Name Role Phone Margarito Berger MD Primary Care Physician Encounter [facility] [place] Date(s): 04/19/22 - 05/19/22 [facility] [address] [place] [address]- Allergies, Adverse Reactions, Alerts No Known Medication [...] 05/25/22 7:52:00 EST, 05/18/22 7:52:00 EST, Capsule, [facility], Partial fill upon patient request [...] 05/18/22 7:52:00 EST, Route to Pharmacy Electronically, [facility], Partial fill upon patient request... Start Date: 05/18/22 Stop Date: 06/01/22 Status: Ordered Dilaudid 2 mg oral tablet See Instructions, PRN Pain , Severe, 1-2 tablet By Mouth Every 4 hours, # 84 tablet, 0 Refills, Acute 05/25/22 7:52:00 EST, 05/18/22 7:51:00 EST, Tablet, [facility], Partial fill upon patient request if the prescription is for a schedule... Start Date: 05/18/22 Stop Date: 05/25/22 Status: Ordered EpiPen 2-Michael 0.3 mg injectable kit = 0.3 mg, Intramuscular, Once, PRN severe allergic reaction, may repeat if necessary, # 2 each, 0 Refills, Soft Stop, 11/06/20 13:52:00 EDT, [facility] #[id number], 176.8, cm, 11/06/20 13:38:00 EDT, Height, 140.3, [...] 04/09/22 15:33:00 EST, Route to Pharmacy Electronically, [id number], [facility] #[id number], 176.8, cm, 02/28/22 10:47:00 EDT, Height, 123.4,... [...] 05/25/22 7:51:00 EST, 05/18/22 7:51:00 EST, Tablet, [facility], Partial fill upon patient request [...] Team Personnel Name: Margarito Berger MD Position: [facility] Primary Care Physician Member Role: PCP Address: Address: [address] [place] [id number] Name: Bhumika Castillo RN Position: [facility] RN Member Role: Primary Care Nurse Name: Jaja Arshad RN Position: S RN Member Role: Primary Care Nurse Name: Ludwin Butcher RN Position: [facility] RN Member Role: Primary Care Nurse Care Team Related Persons Name: GARRETT FUENTES Address: home [address] [place] [id number] Name: MARLO REINOSO Name: PT STS, NONE Name: EFFIE RICKETTS Name: RANDALL RICKETTS
--- OUTSIDE RECORDS SUMMARY | 2023-09-25 00:33 | XMS_ITS | Continuity of Care Document ---
Author Organization [facility] Address [address] [place] [address]- Care Team Providers Care Software Educator Name Role Phone Margarito Berger MD Primary Care Physician En[place] [facility] [place] Date(s): 02/28/22 - 03/07/22 [facility] [address] [place] [address]- Encounter Diagnosis Arthritis of right knee(Discharge Diagnosis) - 02/28/22 Chronic knee pain(Discharge Diagnosis) - 02/28/22 Prediabetes(Discharge Diagnosis) - 02/28/22 Colon cancer screening(Discharge Diagnosis) - 02/28/22 Attending Physician: Margarito Berger MD Allergies, Adverse [...] 03/07/22 14:33:00 EST, Route to Pharmacy Electronically, [facility] #[id number], Partial fill upon patient request if the prescr... Start Date: 03/07/22 Status: Ordered EpiPen 2-Michael 0.3 mg injectable kit = 0.3 mg, Intramuscular, Once, PRN severe allergic reaction, may repeat if necessary, # 2 each, 0 Refills, Soft Stop, 11/06/20 13:52:00 EDT, [facility] #[id number], 176.8, cm, 11/06/20 13:38:00 EDT, Height, 140.3, kg, 11/06/20 13:38:00 EDT, Dry W... Start Date: 11/06/20 Status: Ordered hydrOXYzine hydrochloride 50 mg oral tablet See Instructions, TAKE 1 TABLET BY MOUTH FOUR TIMES DAILY FOR 12 DAYS NEEDED FOR ANXIETY, # 48 tablet, 0 Refills, Maintenance, 01/15/22 17:07:00 EDT, [facility] #[id number], 176.8, cm, 01/04/22 15:55:00 EDT, Height, 123.4, kg, 10/12/21 15:16:0... Start Date: 01/15/22 Status: Ordered hydrOXYzine hydrochloride 50 mg oral tablet See Instructions, TAKE 1 TABLET BY MOUTH FOUR TIMES DAILY FOR 12 DAYS NEEDED FOR ANXIETY, # 48 tablet, 0 Refills, Maintenance, 02/28/22 11:58:00 EDT, [facility] #[id number], 176.8, cm, 02/28/22 10:47:00 EDT, Height, 123.4, kg, 10/12/21 15:16:0... Start Date: 02/28/22 Status: Ordered ibuprofen 800 mg oral tablet 1, tablet, By Mouth, 3 times a day, PRN, TAKE WITH FOOD OR MILK., # 90 tablet, Refills 5, Maintenance, NEEDED FOR PAIN(, 01/04/22 10:09:00 EDT, Route to Pharmacy Electronically, [facility] #[id number], 176.8, cm, 12/14/21 16:29:00 EDT, Height,... Start [...] Mouth, Daily, # 30 tablet, 5 Refills, [facility] #[id number], 176.8, cm, 11/05/2214:43:00 EDT, Height, 123.4, kg, 10/12/21 15:16:00 EDT, Dry Weight Start Date: 11/13/21 Status: Ordered magnesium oxide 250 mg oral tablet See Instructions, TAKE 1 TABLET BY MOUTH DAILY AT BEDTIME FOR 14 DAYS, # 14 tablet, 0 Refills, Maintenance, 02/08/22 13:01:00 EDT, [facility] #[id number], 176.8, cm, 01/04/22 15:55:00 EDT, Height, 123.4, kg, 10/12/21 15:16:00 EDT, Dry Weight Start Date: 02/08/22 Status: Ordered magnesium oxide 250 mg oral tablet See Instructions, TAKE 1 TABLET BY MOUTH DAILY AT BEDTIME FOR 14 DAYS, # 14 tablet, 0 Refills, Maintenance, 01/04/22 15:54:00 EDT, [facility] #[id number], 176.8, cm, 12/14/21 16:29:00 EDT, Height, 123.4, kg, 10/12/21 15:16:00 EDT, Dry Weight Start Date: 01/04/22 Status: Ordered metFORMIN 750 mg oral tablet, extended release 1 tablet, By Mouth, Daily, # 60 tablet, 5 Refills, [facility] #39059, 176.8, cm, 02/02/2116:07:00 EDT, Height, 140.3, kg, 11/06/20 13:38:00 EDT, Dry Weight Start Date: 03/30/21 Status: Ordered oxyCODONE 5 mg oral tablet 5 mg, 1, tablet, By Mouth, Every 8 hours, PRN, mass pat ok, ok for less. Take only as needed., # 45tablet, Refills 0, Tot. Refills 0, Maintenance, Pain , Moderate, 02/28/22 11:58:00 EDT, Route to Pharmacy Electronically, [facility] #[id number],... Start Date: 02/28/22 Stop Date: 03/30/22 Status: Ordered oxyCODONE 5 mg oral tablet 5 mg, 1, tablet, By Mouth, Every 8 hours, PRN, mass pat ok, ok for less. Take only as needed., # 45tablet, Refills 0, Tot. Refills 0, Maintenance, Pain , Moderate, 09/28/21 17:08:00 EDT, Route to Pharmacy Electronically, [facility] #[id number],... Start Date: 09/28/21 Stop Date: 10/13/21 Status: [...] 03/23/22 8:14:00 EST, 02/21/22 8:14:00 EDT, Capsule, [facility] #[id number], Partial fill upon patient request; Sent to pharmacy for [facility]- Effective measure... Start Date: 02/21/22 Stop Date: 03/23/22 Status: Ordered ProAir HFA 90 mcg/inh inhalation aerosol with adapter 2, puffs, Inhalation, Every 6 hours, PRN, # 8.5 Gm, Refills 5, Route to Pharmacy Electronically, [id number], [facility] #[id number], 176.8, cm, 10/12/21 15:16:00 EDT, Height, 123.4, kg, 10/12/21 15:16:00 EDT, Dry Weight Start Date: 11/05/21 Status: Ordered triamcinolone 0.1% topical cream See Instructions, APPLY TOPICALLY TO THE AFFECTED AREA ON ARMS AND LEGS THREE TIMES DAILY. MIX WITH16 OUNCES OF EUCERIN CREAM, # 80 Gm, 0 Refills, [facility] #[id number], 14, APPLY TOPICALLY TOTHE AFFECTED AREA ON [...] Effective Dates Health Status Clinical Service Informant Arthritis of right knee Discharge Diagnosis 02/28/22 Chronic knee pain Discharge Diagnosis 02/28/22 Prediabetes Discharge Diagnosis 02/28/22 Colon cancer screening Discharge Diagnosis 02/28/22 Vital Signs Most recent to oldest [Reference Range]: 1 Height 176.8 cm (02/28/22 10:47 AM) Weight 127.9 kg (02/28/22 10:47 AM) Oxygen Saturation [94-100 %] 97 % (02/28/22 10:47 AM) Pulse Rate [55-90 bpm] 84 bpm (02/28/22 10:47 AM) Body Mass Index [18.5-24.99 kg/m2] 40.92 kg/m2 *>HHI* (02/28/22 10:47 AM) Blood Pressure [90-138/55-84 mm Hg] 130/ 89mm Hg (02/28/22 10:47 AM) Respiratory Rate [16-30 br/min] 18 br/mi n (02/28/22 10:47 AM) Blood pressure sites Arm, left (02/28/22 10:47 AM) Weight Obtained Via Standing scale (02/28/22 10:47 AM) Social History Social History Type Response Smoking Status 5-9 cigarettes (betw een 1/4 to 1/2 pack)/day in last 30 days; Tobacco use times per day: 7; entered on: 12/31/18 Sex Patient Care team information Care Team Personnel Name: Ab FRAGA, Margarito Dolan Position: S Primary Care Physician Member Role: PCP Address: Address: [address] [place] [address]- Care Team Related Persons Name: GARRETT FUENTES Address: home [address] [place] [id number] Name: MARLO REINOSO Name: PT STS, NONE
--- OUTSIDE RECORDS SUMMARY | 2023-09-25 00:33 | XMS_ITS | Continuity of Care Document ---
Author Organization [facility] Address [address] [place] [address]- Care Team Providers Care Bag Machine Helper Name Role Phone Margarito Berger MD Primary Care Physician [place] [facility] [place]/22 [facility] [address] [place] [address]- Allergies, Adverse Reactions, Alerts No Known Medication [...] 04/23/22 10:40:00 EST, Route to Pharmacy Electronically, [facility][id number], Partial fill upon patient request if the prescr... Start Date: 04/23/22 Status: Ordered EpiPen 2-Michael 0.3 mg injectable kit = 0.3 mg, Intramuscular, Once, PRN severe allergic reaction, may repeat if necessary, # 2 each, 0 Refills, Soft Stop, 11/06/20 13:52:00 EDT, [facility] #[id number], 176.8, cm, 11/06/20 13:38:00 EDT, Height, 140.3, kg, 11/06/20 13:38:00 EDT, Dry W... Start Date: 11/06/20 Status: Ordered hydrOXYzine hydrochloride 50 mg oral tablet See Instructions, TAKE 1 TABLET BY MOUTH FOUR TIMES DAILY FOR 12 DAYS NEEDED FOR ANXIETY, # 48 tablet, 0 Refills, Maintenance, 04/12/22 12:47:00 EST, [facility] #[id number], 176.8, cm, 02/28/22 10:47:00 EDT, Height, 123.4, kg, 10/12/21 15:16:0... Start Date: 04/12/22 Status: Ordered hydrOXYzine hydrochloride 50 mg oral tablet See Instructions, TAKE 1 TABLET BY MOUTH FOUR TIMES DAILY FOR 12 DAYS NEEDED FOR ANXIETY, # 48 tablet, 0 Refills, Maintenance, 01/15/22 17:07:00 EDT, [facility] #[id number], 176.8, cm, 01/04/22 15:55:00 EDT, Height, 123.4, kg, 10/12/21 15:16:0... Start Date: 01/15/22 Status: Ordered ibuprofen 800 mg oral tablet 1, tablet, By Mouth, 3 times a day, PRN, TAKE WITH FOOD OR MILK., # 90 tablet, Refills 5, Maintenance, NEEDED FOR PAIN(, 01/04/22 10:09:00 EDT, Route to Pharmacy Electronically, [facility] #[id number], 176.8, cm, 12/14/21 16:29:00 EDT, Height,... Start [...] Mouth, Daily, # 30 tablet, 5 Refills, [facility] #[id number], 176.8, cm, 11/05/2214:43:00 EDT, Height, 123.4, kg, 10/12/21 15:16:00 EDT, Dry Weight Start Date: 11/13/21 Status: Ordered magnesium oxide 250 mg oral tablet See Instructions, TAKE 1 TABLET BY MOUTH DAILY AT BEDTIME FOR 14 DAYS, # 14 tablet, 0 Refills, Maintenance, 02/08/22 13:01:00 EDT, [facility] #[id number], 176.8, cm, 01/04/22 15:55:00 EDT, Height, 123.4, kg, 10/12/21 15:16:00 EDT, Dry Weight Start Date: 02/08/22 Status: Ordered magnesium oxide 250 mg oral tablet See Instructions, TAKE 1 TABLET BY MOUTH DAILY AT BEDTIME FOR 14 DAYS, # 14 tablet, 0 Refills, Maintenance, 01/04/22 15:54:00 EDT, [facility] #[id number], 176.8, cm, 12/14/21 16:29:00 EDT, Height, 123.4, kg, 10/12/21 15:16:00 EDT, Dry Weight Start Date: 01/04/22 Status: Ordered magnesium oxide 250 mg oral tablet See Instructions, TAKE 1 TABLET BY MOUTH DAILY AT BEDTIME FOR 14 DAYS, # 14 tablet, 0 Refills, Maintenance, 04/02/22 7:31:00 EST, [facility] #[id number], 176.8, cm, 02/28/22 10:47:00 EDT, Height, 123.4, kg, 10/12/21 15:16:00 EDT, Dry Weight Start Date: 04/02/22 Status: Ordered metFORMIN 750 mg oral tablet, extended release 1 tablet, By Mouth, Daily, # 60 tablet, 5 Refills, [facility] #65520, 176.8, cm, 02/02/2116:07:00 EDT, Height, 140.3, kg, 11/06/20 13:38:00 EDT, Dry Weight Start Date: 03/30/21 Status: Ordered metFORMIN 750 mg oral tablet, extended release See Instructions, TAKE 1 TABLET BY MOUTH DAILY, # 60 tablet, 6 Refills, Maintenance, 03/29/22 19:08:00 EST, [facility] #[id number], 176.8, cm, 02/28/22 10:47:00 EDT, Height, 123.4, kg, 10/12/21 15:16:00 EDT, Dry Weight Start Date: 03/29/22 Status: Ordered oxyCODONE 5 mg oral tablet 5 mg, 1, tablet, By Mouth, Every 8 hours, PRN, mass pat ok, ok for less. Take only as needed., # 45tablet, Refills 0, Tot. Refills 0, Maintenance, Pain , Moderate, 09/28/21 17:08:00 EDT, Route to Pharmacy Electronically, [facility][id number],... Start Date: 09/28/21 Stop Date: 10/13/21 Status: [...] 04/19/22 9:57:00 EST, Route to Pharmacy Electronically, [facility] #[id number], P... Start Date: 04/19/22 Stop Date: 05/19/22 [...] 04/09/22 15:33:00 EST, Route to Pharmacy Electronically, [id number], [facility] #[id number], 176.8, cm, 02/28/22 10:47:00 EDT, Height, 123.4,... Start Date: 04/09/22 Status: Ordered triamcinolone 0.1% topical cream See Instructions, APPLY TOPICALLY TO THE AFFECTED AREA ON ARMS AND LEGS THREE TIMES DAILY. MIX WITH16 OUNCES OF EUCERIN CREAM, # 80 Gm, 0 Refills, [facility] #[id number], 14, APPLY TOPICALLY TOTHE AFFECTED AREA ON [...] Member Role: PCP [facility] [address] Team Related Persons Name: GARRETT FUENTES Address: home [address] [place] [address] Name: MARLO REINOSO Name: PT STS, NONE
--- OUTSIDE RECORDS SUMMARY | 2023-09-25 00:33 | XMS_ITS | Continuity of Care Document ---
Author Organization [facility] Address [address] [place] [address]- Care Team Providers Care Paste Up Artist Apprentice Name Role Phone Ab FRAGA, Margarito Dolan Primary Care Physician Encounter [facility] Date(s): 10/24/20 - 11/23/20 [facility] [address] [place] [address]- Allergies, Adverse Reactions, Alerts No Known Medication [...] 6 Refills, Maintenance, 11/08/20 9:05:00 EDT, Powder, [facility] #[id number], Partial fill upon patient request if the prescription is for a schedule II opioid drug., 2 puffs Inhalation... Start Date: 11/08/20 Status: Ordered EpiPen 2-Michael 0.3 mg injectable kit = 0.3 mg, Intramuscular, Once, PRN severe allergic reaction, may repeat if necessary, # 2 each, 0 Refills, Soft Stop, 11/06/20 13:52:00 EDT, [facility] #[id number], 176.8, cm, 11/06/20 13:38:00 EDT, Height, 140.3, kg, 11/06/20 13:38:00 EDT, Dry W... Start Date: 11/06/20 Status: Ordered hydrOXYzine pamoate 25 mg oral capsule 1 capsule = 25 mg, By Mouth, 4 times a day, for 14 days, prn itching; may increase to 2 caps as needed for itching, # 56 capsule, 1 Refills, Acute 12/04/20 14:16:00 EDT, 11/06/20 14:16:00 EDT, Capsule, [facility] #51550, 176.8, cm, 11/06/20... Start Date: 11/06/20 Stop Date: 12/04/20 Status: Ordered ibuprofen 800 mg oral tablet 800 mg, 1, tablet, By Mouth, 3 times a day, PRN, with food or milk, # 90 tablet, Refills 5, Tot. Refills 5, Maintenance, as needed for pain, 11/06/20 13:53:00 EDT, Route to Pharmacy Electronically, [facility] #[id number], 176.8, cm, 11/06/20 13:3... Start Date: 11/06/20 Status: Ordered losartan 50 mg oral tablet 50 mg, 1, tablet, By Mouth, Daily, # 30 tablet, Refills 3, Tot. Refills 3, Maintenance, 11/22/20 14:41:00 EDT, Route to Pharmacy Electronically, [facility] #[id number], Partial fill upon patientrequest if the prescription [...]
--- OUTSIDE RECORDS SUMMARY | 2023-09-25 00:33 | XMS_ITS | Continuity of Care Document ---
Author Organization [facility] Address [address] [place] [address]- Care Team Providers Care Customer Solutions Coordinator Name Role Phone Margarito Berger MD Primary Care Physician Encounter [facility] Date(s): 05/07/22 - 06/06/22 [facility] [address] [place] [address]- Allergies, Adverse Reactions, Alerts No Known Medication [...] 0 Refills, Soft Stop, 11/06/20 13:52:00 EDT, [facility] #[id number], 176.8, cm, 11/06/20 13:38:00 EDT, Height, 140.3, [...] tablet, 1 Refills, Maintenance, 06/03/22 11:27:00 EST, [facility] #[id number], 176.8, cm, 05/01/22 13:41:00 EST, Height, 127.4, [...] 04/09/22 15:33:00 EST, Route to Pharmacy Electronically, [id number], [id number], 176.8, cm, 02/28/22 10:47:00 EDT, Height, 123.4,... [...] Name: Margarito Berger MD Position: [facility] Primary Care Physician Member Role: PCP Address: Address: [address] [place] [address]- Name: Jonathan RAYGOZABhumika Position: [facility] SN RN Member Role: Primary Care Nurse Name: Jaja Arshad RN Position: S RN Member Role: Primary Care Nurse Name: Ludwin Butcher RN Position: S RN Member Role: Primary Care Nurse Care Team Related Persons Name: GARRETT FUENTES Address: home [address] [place] [id number] Name: MARLO REINOSO Name: PT STS, NONE Name: EFFIE RICKETTS Name: RANDALL RICKETTS
--- OUTSIDE RECORDS SUMMARY | 2023-09-25 00:33 | XMS_ITS | Continuity of Care Document ---
Author Organization [facility] Address [address] [place] [address]- Care Team Providers Care Orthopedic Physician Name Role Phone Margarito Berger MD Primary Care Physician Encounter [facility] [place] [place] Date(s): 11/07/21 - 12/07/21 [facility] [address] [place] [address]- Allergies, Adverse Reactions, Alerts No Known Medication [...] 0 Refills, Soft Stop, 11/06/20 13:52:00 EDT, [facility] #[id number], 176.8, cm, 11/06/20 13:38:00 EDT, Height, 140.3, kg, 11/06/20 13:38:00 EDT, Dry W... Start Date: 11/06/20 Status: Ordered ibuprofen 800 mg oral tablet 1, tablet, By Mouth, 3 times a day, PRN, TAKE WITH FOOD OR MILK., # 90 tablet, Refills 1, NEEDEDFOR PAIN(, Route to Pharmacy Electronically, [facility] #[id number], 176.8, cm, 11/05/21 15:43:00 EDT, Height, 123.4, [...] Mouth, Daily, # 30 tablet, 5 Refills, [facility] #[id number], 176.8, cm, 11/05/2214:43:00 EDT, Height, 123.4, kg, 10/12/21 15:16:00 EDT, Dry Weight Start Date: 11/13/21 Status: Ordered magnesium oxide 250 mg oral tablet 1 tablet = 250 mg, By Mouth, Daily at bedtime, for 14 days, # 14 tablet, 1 Refills, Acute 12/28/21 10:35:00 EDT, 11/30/21 10:35:00 EDT, Tablet, [facility] #[id number], Partial fill upon patient request if the prescription is for a schedule II opi... Start Date: 11/30/21 Stop Date: 12/28/21 Status: Ordered metFORMIN 750 mg oral tablet, extended release 1 tablet, By Mouth, Daily, # 60 tablet, 5 Refills, [facility] #[id number], 176.8, cm, 02/02/2116:07:00 EDT, Height, 140.3, kg, 11/06/20 13:38:00 EDT, Dry Weight Start Date: 03/30/21 Status: Ordered oxyCODONE 5 mg oral tablet 5 mg, 1, tablet, By Mouth, Every 8 hours, PRN, mass pat ok, ok for less. Take only as needed., # 45tablet, Refills 0, Tot. Refills 0, Maintenance, Pain , Moderate, 09/28/21 17:08:00 EDT, Route to Pharmacy Electronically, [facility] #[id number],... Start Date: 09/28/21 Stop Date: 10/13/21 Status: Ordered oxyCODONE 5 mg oral tablet 5 mg, 1, tablet, By Mouth, Every 8 hours, PRN, mass pat ok, ok for less. Take only as needed., # 45tablet, Refills 0, Tot. Refills 0, Maintenance, Pain , Moderate, 11/30/21 15:40:00 EDT, Route to Pharmacy Electronically, [facility] #[id number],... Start Date: 11/30/21 Stop Date: 12/15/21 Status: Ordered phentermine 30 mg oral capsule 1 capsule = 30 mg, By Mouth, Daily in AM, for 30 days, # 30 capsule, 0 Refills, Acute 01/05/22 12:24:00 EDT, 12/06/21 12:24:00 EDT, Capsule, [facility] #[id number], Partial fill upon patient request if the prescription is for a schedule II opioid . Start Date: 12/06/21 Stop Date: 01/05/22 Status: Ordered phentermine 30 mg oral capsule 1 capsule = 30 mg, By Mouth, Daily in AM, for 30 days, # 30 capsule, 0 Refills, Acute 01/02/22 16:47:00 EDT, 12/03/21 16:47:00 EDT, Capsule, [facility] #[id number], Partial fill upon patient request if the prescription is for a schedule II opioid... Start Date: 12/03/21 Stop Date: 01/02/22 Status: Ordered ProAir HFA 90 mcg/inh inhalation aerosol with adapter 2, puffs, Inhalation, Every 6 hours, PRN, # 8.5 Gm, Refills 5, Route to Pharmacy Electronically, [id number], [facility] #[id number], 176.8, cm, 10/12/21 15:16:00 EDT, Height, 123.4, kg, 10/12/21 15:16:00 EDT, Dry Weight Start Date: 11/05/21 Status: Ordered triamcinolone 0.1% topical cream See Instructions, APPLY TOPICALLY TO THE AFFECTED AREA ON ARMS AND LEGS THREE TIMES DAILY. MIX WITH16 OUNCES OF EUCERIN CREAM, # 80 Gm, 0 Refills, [facility] #[id number], 14, APPLY TOPICALLY TOTHE AFFECTED AREA ON [...]
--- OUTSIDE RECORDS SUMMARY | 2023-09-25 00:33 | XMS_ITS | Continuity of Care Document ---
Author Organization [facility] Address [address] [place] [address]- Care Team Providers Care Supervisor Asbestos Textile Name Role Phone Ab FRAGA, Margarito Dolan Primary Care Physician Encounter [facility] Date(s): 11/29/20 - 12/29/20 [facility] [address] [place] [address]- Attending Physician: Admisak, Lona Admitting Physician: AdmtrLona Referring Physician: Admtr, Ar8 [...] 6 Refills, Maintenance, 11/08/20 9:05:00 EDT, Powder, [facility] #[id number], Partial fill upon patient request if the prescription is for a schedule II opioid drug., 2 puffs Inhalation... Start Date: 11/08/20 Status: Ordered EpiPen 2-Michael 0.3 mg injectable kit = 0.3 mg, Intramuscular, Once, PRN severe allergic reaction, may repeat if necessary, # 2 each, 0 Refills, Soft Stop, 11/06/20 13:52:00 EDT, [facility] #[id number], 176.8, cm, 11/06/20 13:38:00 EDT, Height, 140.3, [...] 11/06/20 13:53:00 EDT, Route to Pharmacy Electronically, [facility] #[id number], 176.8, cm, 11/06/20 13:3... Start Date: 11/06/20 Status: Ordered losartan 50 mg oral tablet 50 mg, 1, tablet, By Mouth, Daily, # 30 tablet, Refills 3, Tot. Refills 3, Maintenance, 11/22/20 14:41:00 EDT, Route to Pharmacy Electronically, [facility] #[id number], Partial fill upon patientrequest if the prescription [...]
--- OUTSIDE RECORDS SUMMARY | 2023-09-25 00:33 | XMS_ITS | Continuity of Care Document ---
Author Organization [facility] Address [address] [place] [address]- Care Team Providers Care Manager Front Name Role Phone Margarito Berger MD Primary Care Physician [place] [facility]23 [place] 05/07/23 [facility] [address] [place] [address]- Allergies, Adverse Reactions, Alerts No Known Medication [...] 05/10/23 8:25:00 EST, 04/30/23 8:25:00 EST, Tablet, [facility] #[id number], Partial fill upon patient request if the prescription is for a schedule II opioid d... Start Date: 04/30/23 Stop Date: 05/10/23 Status: Ordered cyclobenzaprine 10 mg oral tablet 10 mg, 1, tablet, By Mouth, 3 times a day, PRN spasms, # 60 tablet, Refills 0, Tot. Refills 0, Maintenance, 05/02/23 11:36:00 EST, Route to Pharmacy Electronically, [facility] #[id number], Partial fill upon patient request if the prescription is... Start Date: 05/02/23 Status: Ordered diclofenac sodium 75 mg oral delayed release tablet 1 tablet, By Mouth, 2 times a day with meals, DIRECTED., # 60 tablet, 1 Refills, Maintenance, 05/04/23 6:22:00 EST, [facility] #[id number], 176.8, cm, 04/30/23 7:39:00 EST, Height, 127.4, kg,05/17/22 4:58:00 EST, Dry Weight Start Date: 05/04/23 Status: Ordered doxycycline hyclate 100 mg oral tablet See Instructions, TAKE 1 TABLET BY MOUTH TWICE DAILY FOR 14 DAYS, # 28 tablet, 0 Refills, Maintenance, 04/10/23 14:15:00 EST, [facility] #[id number], 176.8, cm, 01/24/23 10:59:00 EDT, Height, 127.4, kg, 05/17/22 4:58:00 EST, Dry Weight Start Date: 04/10/23 Status: Ordered EpiPen 2-Michael 0.3 mg injectable kit = 0.3 mg, Intramuscular, Once, PRN severe allergic reaction, may repeat if necessary, # 2 each, 0 Refills, Soft Stop, 01/24/23 12:05:00 EDT, [facility] #[id number], 176.8, cm, 01/24/23 10:59:00 EDT, Height, 127.4, kg, 05/17/22 4:58:00 EST, Dry We... Start Date: 01/24/23 Status: Ordered hydrOXYzine hydrochloride 50 mg oral tablet 1 tablet = 50 mg, By Mouth, 3 times a day, # 90 tablet, 1 Refills, Maintenance, 04/25/23 11:23:00 EST, [facility] #[id number], 176.8, cm, 01/24/23 10:59:00 EDT, Height, 127.4, kg, 05/17/22 4:58:00 EST, Dry Weight Start Date: 04/25/23 Status: Ordered hydrOXYzine hydrochloride 50 mg oral tablet See Instructions, TAKE 1 TABLET BY MOUTH THREE TIMES DAILY, # 90 tablet, 0 Refills, Maintenance, 04/25/23 14:10:00 EST, [facility] #[id number], 176.8, cm, 01/24/23 10:59:00 EDT, Height, 127.4, kg, 05/17/22 4:58:00 EST, Dry Weight Start Date: 04/25/23 Status: Ordered losartan 50 mg oral tablet 1 tablet, By Mouth, Daily, # 90 tablet, 1 Refills, Maintenance, 11/28/22 21:33:00 EDT, [facility] #[id number], 176.8, cm, 11/05/22 11:22:00 EDT, Height, 127.4, kg, 05/17/22 4:58:00 EST, Dry Weight Start Date: 11/28/22 Status: Ordered mupirocin 2% topical ointment See Instructions, APPLY TOPICALLY TO THE AFFECTED AREA THREE TIMES DAILY FOR 14 DAYS, # 22 Gm, 0 Refills, Maintenance, 03/27/23 8:33:00 EST, [facility] #[id number], 10, APPLY TOPICALLY TO THE AFFECTED AREA THREE TIMES DAILY FOR 14 DAYS, 176.8, cm... Start Date: 03/27/23 Status: Ordered oxyCODONE 5 mg oral tablet 5 mg, 1, tablet, By Mouth, Every 8 hours, PRN, mass pat ok, ok for less. TAKE ONLY NEEDED, # 45 tablet, Refills 0, Tot. Refills 0, Maintenance, Pain , Moderate, 04/25/23 11:23:00 EST, Route to Pharmacy Electronically, [facility] #[id number], P... Start Date: 04/25/23 Stop Date: 05/10/23 Status: Ordered predniSONE 20 mg oral tablet See Instructions, 2 tablets By Mouth Daily for 5 days and then 1 tablet by mouth daily for 5 days, # 15 tablet, 0 Refills, Soft Stop, 01/08/23 16:53:00 EDT, Tablet, [facility] #[id number], Partial fill upon patient request if the prescription is... Start Date: 01/08/23 Status: Ordered Ventolin HFA 108 mcg/inh inhalation aerosol with adapter 2 puffs, Inhalation, Every 6 hours, # 8.5 Gm, 6 Refills, Maintenance, 12/23/22 11:39:00 EDT, [facility] #[id number], 176.8, cm, 12/23/22 11:25:00 EDT, Height, 127.4, [...] Team Personnel Name: Margarito Berger MD Position: [facility] Physician - Primary Care Member Role: PCP Address: Address: [address] [place] [address] Name: Bhumika Castillo RN Position: [facility] SN RN Member Role: Primary Care Nurse Name: Jaja Arshad RN Position: [facility] RN Member Role: Primary Care Nurse Name: Ludwin Butcher RN Position: [facility] RN Member Role: Primary Care Nurse Care Team Related Persons Name: GARRETT FUENTES Address: home [address] [place] [address] Name: MARLO REINOSO Name: PT STS, NONE Name: EFFIE RICKETTS Name: RANDALL RICKETTS
--- OUTSIDE RECORDS SUMMARY | 2023-09-25 00:33 | XMS_ITS | Continuity of Care Document ---
Author Organization [facility] Address [address] [place] [address]- Care Team Providers Care Wastewater Plant Operator Name Role Phone Margarito Berger MD Primary Care Physician Encounter [facility] [id number] Date(s): 11/01/22 - 12/01/22 [facility] [address] [place] [address]- Attending Physician: Lona Post Admitting Physician: AdmtrLona Referring Physician: Admtr, Ar8 [...] 11/11/22 11:59:00 EDT, Route to Pharmacy Electronically, [facility] #[id number], Partial fill upon patient request if the prescription is... Start Date: 11/11/22 Status: Ordered EpiPen 2-Michael 0.3 mg injectable kit = 0.3 mg, Intramuscular, Once, PRN severe allergic reaction, may repeat if necessary, # 2 each, 0 Refills, Soft Stop, 11/06/20 13:52:00 EDT, [facility] #[id number], 176.8, cm, 11/06/20 13:38:00 EDT, Height, 140.3, kg, 11/06/20 13:38:00 EDT, Dry W... Start Date: 11/06/20 Status: Ordered hydrOXYzine hydrochloride 50 mg oral tablet 1 tablet = 50 mg, By Mouth, 3 times a day, # 60 tablet, 1 Refills, Maintenance, 10/21/22 15:31:00 EDT, [facility] #[id number], 176.8, cm, 10/11/22 16:37:00 EDT, Height, 127.4, kg, 05/17/22 4:58:00 EST, Dry Weight Start Date: 10/21/22 Status: Ordered ibuprofen 800 mg oral tablet 1, tablet, By Mouth, 3 times a day, PRN, TAKE WITH FOOD OR MILK., # 90 tablet, Refills 5, Tot. Refills 5, Maintenance, NEEDED FOR PAIN(, 08/27/22 20:18:00 EDT, Route to Pharmacy Electronically, [facility] #[id number], 176.8, cm, 05/01/22 13:41... Start Date: 08/27/22 Status: Ordered losartan 50 mg oral tablet 1 tablet, By Mouth, Daily, # 90 tablet, 1 Refills, Maintenance, 11/28/22 21:33:00 EDT, [facility] #[id number], 176.8, cm, 11/05/22 11:22:00 EDT, Height, 127.4, kg, 05/17/22 4:58:00 EST, Dry Weight Start Date: 11/28/22 Status: Ordered mupirocin 2% topical ointment 1 application, Topically, 3 times a day, for 14 days, # 22 Gm, 3 Refills, Acute 01/20/23 16:10:00 EDT, 11/25/22 16:10:00 EDT, Ointment, [facility] #[id number], Partial fill upon patient request if the [...] 11/22/22 14:29:00 EDT, Route to Pharmacy Electronically, [facility] #[id number], P... Start Date: 11/22/22 Stop Date: 12/07/22 Status: Ordered ProAir HFA 90 mcg/inh inhalation aerosol with adapter 2, puffs, Inhalation, Every 6 hours, PRN, # 8.5 Gm, Refills 5, Tot. Refills 5, 04/09/22 15:33:00 EST, Route to Pharmacy Electronically, [id number], [facility] #[id number], 176.8, cm, 02/28/22 10:47:00 EDT, Height, 123.4,... Start Date: 04/09/22 Status: Ordered Ventolin HFA 108 mcg/inh inhalation aerosol with adapter See Instructions, INHALE 2 PUFFS BY MOUTH EVERY 6 HOURS NEEDED, # 18 Gm, 0 Refills, Maintenance,11/29/22 9:18:00 EDT, [facility] #[id number], 176.8, cm, 11/05/22 11:22:00 EDT, Height, 127.4,kg, [...] Team Personnel Name: Margarito Berger MD Position: [facility] Physician - Primary Care Member Role: PCP Address: Address: [address] [place] [address] Name: Bhumika Castillo RN Position: [facility] RN Member Role: Primary Care Nurse Name: Jaja Arshad RN Position: S RN Member Role: Primary Care Nurse Name: Ludwin Butcher RN Position: [facility] RN Member Role: Primary Care Nurse Care Team Related Persons Name: GARRETT FUENTES Address: home [address] [place] [address] Name: MARLO REINOSO Name: PT STS, NONE Name: EFFIE RICKETTS Name: RANDALL RICKETTS
--- OUTSIDE RECORDS SUMMARY | 2023-09-25 00:33 | XMS_ITS | Continuity of Care Document ---
Author Organization [facility] Address [address] [place] [address] [address] [place] [address]- Care Team Providers Care Infectious Disease Technician Name Role Phone Ab FRAGA, Margarito Dolan Primary Care Physician Encounter [facility] Date(s): 11/20/22 - 12/20/22 [facility] [address] [place] [address]- Allergies, Adverse Reactions, Alerts No Known Medication [...] 12/04/22 20:21:00 EDT, Route to Pharmacy Electronically, [facility] #[id number], Partial fill upon patient request if the prescription is... Start Date: 12/04/22 Status: Ordered diclofenac sodium 75 mg oral delayed release tablet See Instructions, TAKE 1 TABLET BY MOUTH TWICE DAILY WITH FOOD DIRECTED, # 60 tablet, 1 Refills,12/16/22 0:00:00 EDT, [facility] #[id number], 176.8, cm, 12/09/22 9:21:00 EDT, Height, 127.4, kg, 05/17/22 4:58:00 EST, Dry Weight Start Date: 12/16/22 Status: Ordered EpiPen 2-Michael 0.3 mg injectable kit = 0.3 mg, Intramuscular, Once, PRN severe allergic reaction, may repeat if necessary, # 2 each, 0 Refills, Soft Stop, 11/06/20 13:52:00 EDT, [facility] #[id number], 176.8, cm, 11/06/20 13:38:00 EDT, Height, 140.3, kg, 11/06/20 13:38:00 EDT, Dry W... Start Date: 11/06/20 Status: Ordered hydrOXYzine hydrochloride 50 mg oral tablet 1 tablet = 50 mg, By Mouth, 3 times a day, # 60 tablet, 1 Refills, Maintenance, 12/16/22 12:01:00 EDT, [facility] #[id number], 176.8, cm, 12/09/22 9:21:00 EDT, Height, 127.4, kg, 05/17/22 4:58:00 EST, Dry Weight Start Date: 12/16/22 Status: Ordered ibuprofen 800 mg oral tablet 1, tablet, By Mouth, 3 times a day, PRN, TAKE WITH FOOD OR MILK., # 90 tablet, Refills 5, Tot. Refills 5, Maintenance, NEEDED FOR PAIN(, 08/27/22 20:18:00 EDT, Route to Pharmacy Electronically, [facility] #[id number], 176.8, cm, 05/01/22 13:41... Start Date: 08/27/22 Status: Ordered losartan 50 mg oral tablet 1 tablet, By Mouth, Daily, # 90 tablet, 1 Refills, Maintenance, 11/28/22 21:33:00 EDT, [facility] #[id number], 176.8, cm, 11/05/22 11:22:00 EDT, Height, 127.4, kg, 05/17/22 4:58:00 EST, Dry Weight Start Date: 11/28/22 Status: Ordered mupirocin 2% topical ointment 1 application, Topically, 3 times a day, for 14 days, # 22 Gm, 3 Refills, Acute 01/20/23 16:10:00 EDT, 11/25/22 16:10:00 EDT, Ointment, [facility][id number], Partial fill upon patient request if the prescription is for a schedule II opioid drug... Start Date: 11/25/22 Stop Date: 01/20/23 Status: Ordered oxyCODONE 5 mg oral tablet 5 mg, 1, tablet, By Mouth, Every 8 hours, Was only able to get partial fill (16 tablets) from [facility]; mass pat Ok, # 29 tablet, Refills [...] 12/18/22 15:47:00 EDT, Route to Pharmacy Electronically, [facility]... Start Date: 12/18/22 Stop Date: 01/02/23 Status: Ordered ProAir HFA 90 mcg/inh inhalation aerosol with adapter 2, puffs, Inhalation, Every 6 hours, PRN, # 8.5 Gm, Refills 5, Tot. Refills 5, 04/09/22 15:33:00 EST, Route to Pharmacy Electronically, [id number], [facility] #[id number], 176.8, cm, 02/28/22 10:47:00 EDT, Height, 123.4,... Start Date: 04/09/22 Status: Ordered Ventolin HFA 108 mcg/inh inhalation aerosol with adapter See Instructions, INHALE 2 PUFFS BY MOUTH EVERY 6 HOURS NEEDED, # 18 Gm, 0 Refills, Maintenance,11/29/22 9:18:00 EDT, [facility] #[id number], 176.8, cm, 11/05/22 11:22:00 EDT, Height, 127.4,kg, [...] Care Member Role: PCP Address: Address: [address] [place] [id number] Name: Bhumika Castillo RN Position: [facility] RN Member Role: Primary Care Nurse Name: Jaja Arshad RN Position: S RN Member Role: Primary Care Nurse Name: Ludwin Butcher RN Position: S RN Member Role: Primary Care Nurse Care Team Related Persons Name: GARRETT FUENTES Address: home [address] [place] [address] Name: MARLO REINOSO Name: PT STS, NONE Name: EFFIE RICKETTS Name: RANDALL RICKETTS
--- OUTSIDE RECORDS SUMMARY | 2023-09-25 00:33 | XMS_ITS | Continuity of Care Document ---
Author Organization [facility] Address [address] [place] [address]- Care Team Providers Care Delivery Rn Name Role Phone Margarito Berger MD Primary Care Physician Encounter [facility] Date(s): 06/21/21 - 06/28/21 [facility] [address] [place] [address]- Encounter Diagnosis Morbid obesity(Discharge Diagnosis) - 06/21/21 Adjustment disorder(Discharge Diagnosis) - 06/21/21 Attending Physician: Margarito Berger MD Allergies, Adverse [...] 0 Refills, Soft Stop, 11/06/20 13:52:00 EDT, [facility] #[id number], 176.8, cm, 11/06/20 13:38:00 EDT, Height, 140.3, kg, 11/06/20 13:38:00 EDT, Dry W... Start Date: 11/06/20 Status: Ordered hydrOXYzine hydrochloride 50 mg oral tablet 1 tablet, By Mouth, 4 times a day, PRN NEEDED FOR ANXIETY, # 40 tablet, 0 Refills, Physician Stop 07/07/21 10:51:00 EST, 06/27/21 10:50:00 EST, [facility] #[id number], 176.8, cm, 06/21/21 15:26:00 EST, Height, 140.3, kg, 11/06/20 13:38:00 EDT,... Start Date: 06/27/21 Stop Date: 07/07/21 Status: Ordered ibuprofen 800 mg oral tablet 800 mg, 1, tablet, By Mouth, 3 times a day, PRN, with food or milk, # 90 tablet, Refills 0, Tot. Refills 0, Maintenance, NEEDED FOR PAIN, 06/27/21 10:52:00 EST, Route to Pharmacy Electronically, [facility] #[id number], 176.8, cm, 06/21/21 15:2... Start Date: 06/27/21 [...] 02/26/21 14:39:00 EDT, Route to Pharmacy Electronically, [facility] #[id number], Partial fill upon patientrequest if the prescription is for a schedule II op... Start Date: 02/26/21 Stop Date: 05/27/21 Status: Ordered losartan 50 mg oral tablet 1 tablet = 50 mg, By Mouth, Daily, for 30 days, # 30 tablet, 5 Refills, Physician Stop 10/13/21 14:50:00 EDT, 04/16/21 14:50:00 EST, [facility] #[id number], 176.8, cm, 02/01/21 16:07:00 EDT, Height, 140.3, kg, 11/06/20 13:38:00 EDT, Dry Weight Start Date: 04/16/21 Stop Date: 10/13/21 Status: Ordered metFORMIN 750 mg oral tablet, extended release 1 tablet, By Mouth, Daily, # 60 tablet, 5 Refills, [facility] #[id number], 176.8, cm, 02/02/2116:07:00 EDT, Height, 140.3, kg, 11/06/20 13:38:00 EDT, Dry Weight Start Date: 03/30/21 Status: Ordered oxyCODONE 5 mg oral tablet 5 mg, 1, tablet, By Mouth, Every 8 hours, PRN, Take only as needed, # 45 tablet, Refills 0, Tot. Refills 0, Maintenance, Pain , Moderate, 06/20/21 15:50:00 EST, Route to Pharmacy Electronically, [facility] #[id number], Partial fill upon patient r... Start Date: [...] Gm, Refills 5, Route to Pharmacy Electronically, [id number], [facility] #[id number], 176.8, cm, 05/18/21 14:17:00 EST, Height, 140.3, kg, 11/06/20 13:38:00 EDT, Dry Weight Start Date: 06/13/21 Status: Ordered triamcinolone 0.1% topical cream See Instructions, APPLY TOPICALLY TO THE AFFECTED AREA ON ARMS AND LEGS THREE TIMES DAILY. MIX WITH16 OUNCES OF EUCERIN CREAM, # 80 Gm, 0 Refills, [facility] #[id number], 14, APPLY TOPICALLY TOTHE AFFECTED AREA ON [...] Clinical Service Informant Morbid obesity Discharge Diagnosis 06/21/21 Adjustment disorder Discharge Diagnosis 06/21/21 Vital Signs Most recent to oldest [Reference Range]: 1 Height 176.8 cm (06/21/21 3:26 PM) Weight Obtained Via Standing scale (06/21/21 3:26 PM) Social History Social History Type Response Smoking Status 5-9 cigarettes (betw een 1/4 to 1/2 pack)/day in last 30 days; Tobacco use times per day: 7; entered on: 12/31/18 Sex
--- OUTSIDE RECORDS SUMMARY | 2023-09-25 00:33 | XMS_ITS | Continuity of Care Document ---
Author Organization [facility] Address [address] [place] [address]- Care Team Providers Care Plant Biology Professor Name Role Phone Margarito Berger MD Primary Care Physician Encounter [facility] [place] Date(s): 05/15/21 - 06/14/21 [facility] [address] [place] [address]- Allergies, Adverse Reactions, Alerts No Known Medication [...] 0 Refills, Soft Stop, 11/06/20 13:52:00 EDT, [facility] #[id number], 176.8, cm, 11/06/20 13:38:00 EDT, Height, 140.3, kg, 11/06/20 13:38:00 EDT, Dry W... Start Date: 11/06/20 Status: Ordered hydrOXYzine hydrochloride 50 mg oral tablet 1 tablet, By Mouth, 4 times a day, PRN NEEDED FOR ANXIETY, # 40 tablet, 0 Refills, [facility] #[id number], 176.8, cm, 05/18/21 14:17:00 EST, Height, 140.3, kg, 11/06/20 13:38:00 EDT, Dry Weight Start Date: 05/22/21 Status: Ordered ibuprofen 800 mg oral tablet 800 mg, 1, tablet, By Mouth, 3 times a day, PRN, with food or milk, # 90 tablet, Refills 2, Tot. Refills 2, Maintenance, as needed for pain, 04/10/21 11:47:00 EST, Route to Pharmacy Electronically, [facility] #[id number], 176.8, cm, 02/01/21 16:0... Start Date: 04/10/21 [...] 02/26/21 14:39:00 EDT, Route to Pharmacy Electronically, [facility] #[id number], Partial fill upon patientrequest if the prescription is for a schedule II op... Start Date: 02/26/21 Stop Date: 05/27/21 Status: Ordered losartan 50 mg oral tablet 1 tablet = 50 mg, By Mouth, Daily, for 30 days, # 30 tablet, 5 Refills, Physician Stop 10/13/21 14:50:00 EDT, 04/16/21 14:50:00 EST, [facility] #[id number], 176.8, cm, 02/01/21 16:07:00 EDT, Height, 140.3, kg, 11/06/20 13:38:00 EDT, Dry Weight Start Date: 04/16/21 Stop Date: 10/13/21 Status: Ordered metFORMIN 750 mg oral tablet, extended release 1 tablet, By Mouth, Daily, # 60 tablet, 5 Refills, [facility] #[id number], 176.8, cm, 02/02/2116:07:00 EDT, Height, 140.3, kg, 11/06/20 13:38:00 EDT, Dry Weight Start Date: 03/30/21 Status: Ordered oxyCODONE 5 mg oral tablet 5 mg, 1, tablet, By Mouth, Every 8 hours, PRN, Take only as needed, # 45 tablet, Refills 0, Tot. Refills 0, Maintenance, Pain , Moderate, 06/04/21 14:35:00 EST, Route to Pharmacy Electronically, [facility] #[id number], Partial fill upon patient r... Start Date: [...] Date: 05/18/21 Stop Date: 06/17/21 Status: Ordered ProAir HFA 90 mcg/inh inhalation aerosol with adapter 2, puffs, Inhalation, Every 6 hours, PRN, # 8.5 Gm, Refills 5, Route to Pharmacy Electronically, [id number], [facility] #[id number], 176.8, cm, 05/18/21 14:17:00 EST, Height, 140.3, kg, 11/06/20 13:38:00 EDT, Dry Weight Start Date: 06/13/21 Status: Ordered triamcinolone 0.1% topical cream See Instructions, APPLY TOPICALLY TO THE AFFECTED AREA ON ARMS AND LEGS THREE TIMES DAILY. MIX WITH16 OUNCES OF EUCERIN CREAM, # 80 Gm, 0 Refills, [facility] #[id number], 14, APPLY TOPICALLY TOTHE AFFECTED AREA ON [...]
--- OUTSIDE RECORDS SUMMARY | 2023-09-25 00:33 | XMS_ITS | Continuity of Care Document ---
Author Organization [facility] Address [address] [place] [address]- Care Team Providers Care Senior Design Engineering Specialist Name Role Phone Ab FRAGA, Margarito Dolan Primary Care Physician [place] [facility] [place] 09/06/21 - 10/06/21 [facility] [address] [place] [address]- Allergies, Adverse Reactions, Alerts No Known Medication [...] 0 Refills, Soft Stop, 11/06/20 13:52:00 EDT, [facility] #[id number], 176.8, cm, 11/06/20 13:38:00 EDT, Height, 140.3, kg, 11/06/20 13:38:00 EDT, Dry W... Start Date: 11/06/20 Status: Ordered ibuprofen 800 mg oral tablet 1, tablet, By Mouth, 3 times a day, PRN, TAKE WITH FOOD OR MILK, # 90 tablet, Refills 0, NEEDED FOR PAIN, Route to Pharmacy Electronically, [facility] #[id number], 176.8, cm, 06/21/21 15:26:00 EST, Height, 140.3, kg, 11/06/20 13:38:00 EDT, Dry... Start Date: 07/23/21 Status: Ordered ibuprofen 800 mg oral tablet 1, tablet, By Mouth, 3 times a day, PRN, TAKE WITH FOOD OR MILK, # 90 tablet, Refills 0, Tot. Refills 0, Maintenance, NEEDED FOR PAIN, 08/27/21 15:32:00 EDT, Route to Pharmacy Electronically, [facility] #[id number], 176.8, cm, 08/06/21 15:06:0... Start Date: 08/27/21 [...] 02/26/21 14:39:00 EDT, Route to Pharmacy Electronically, [facility] #[id number], Partial fill upon patientrequest if the prescription is for a schedule II op... Start Date: 02/26/21 Stop Date: 05/27/21 Status: Ordered losartan 50 mg oral tablet 1 tablet = 50 mg, By Mouth, Daily, for 30 days, # 30 tablet, 5 Refills, Physician Stop 10/13/21 14:50:00 EDT, 04/16/21 14:50:00 EST, [facility] #[id number], 176.8, cm, 02/01/21 16:07:00 EDT, Height, 140.3, kg, 11/06/20 13:38:00 EDT, Dry Weight Start Date: 04/16/21 Stop Date: 10/13/21 Status: Ordered metFORMIN 750 mg oral tablet, extended release 1 tablet, By Mouth, Daily, # 60 tablet, 5 Refills, [facility] #[id number], 176.8, cm, 02/02/2116:07:00 EDT, Height, 140.3, kg, 11/06/20 13:38:00 EDT, Dry Weight Start Date: 03/30/21 Status: Ordered oxyCODONE 5 mg oral tablet 5 mg, 1, tablet, By Mouth, Every 8 hours, PRN, mass pat ok, ok for less. Take only as needed., # 45tablet, Refills 0, Tot. Refills 0, Maintenance, Pain , Moderate, 09/28/21 17:08:00 EDT, Route to Pharmacy Electronically, [facility] #[id number],... Start Date: 09/28/21 Stop Date: 10/13/21 Status: [...] Gm, Refills 5, Route to Pharmacy Electronically, [id number], [facility] #[id number], 176.8, cm, 05/18/21 14:17:00 EST, Height, 140.3, kg, 11/06/20 13:38:00 EDT, Dry Weight Start Date: 06/13/21 Status: Ordered triamcinolone 0.1% topical cream See Instructions, APPLY TOPICALLY TO THE AFFECTED AREA ON ARMS AND LEGS THREE TIMES DAILY. MIX WITH16 OUNCES OF EUCERIN CREAM, # 80 Gm, 0 Refills, [facility] #[id number], 14, APPLY TOPICALLY TOTHE AFFECTED AREA ON [...]
--- OUTSIDE RECORDS SUMMARY | 2023-09-25 00:33 | XMS_ITS | Continuity of Care Document ---
Author Organization [facility] Address [address] [place] [address]- Care Team Providers Care Control Room Agent Name Role Phone Margarito Berger MD Primary Care Physician Encounter [facility] [place] Date(s): 02/25/23 - 03/27/23 [facility] [address] [place] [address]- Allergies, Adverse Reactions, Alerts No Known Medication [...] 03/24/23 12:45:00 EST, Route to Pharmacy Electronically, [facility] #[id number], Partial fill upon patient request if the prescription is... Start Date: 03/24/23 Status: Ordered diclofenac sodium 75 mg oral delayed release tablet See Instructions, TAKE 1 TABLET BY MOUTH TWICE DAILY WITH FOOD DIRECTED, # 60 tablet, 1 Refills,03/11/23 16:29:00 EST, [facility] #[id number], 176.8, cm, 01/24/23 10:59:00 EDT, Height, 127.4, kg, 05/17/22 4:58:00 EST, Dry Weight Start Date: 03/11/23 Status: Ordered EpiPen 2-Michael 0.3 mg injectable kit = 0.3 mg, Intramuscular, Once, PRN severe allergic reaction, may repeat if necessary, # 2 each, 0 Refills, Soft Stop, 01/24/23 12:05:00 EDT, [facility] #[id number], 176.8, cm, 01/24/23 10:59:00 EDT, Height, 127.4, kg, 05/17/22 4:58:00 EST, Dry We... Start Date: 01/24/23 Status: Ordered hydrOXYzine hydrochloride 50 mg oral tablet 1 tablet = 50 mg, By Mouth, 3 times a day, # 90 tablet, 1 Refills, Maintenance, 02/12/23 8:08:00 EDT, [facility] #[id number], 176.8, cm, 01/24/23 10:59:00 EDT, Height, 127.4, kg, 05/17/22 4:58:00 EST, Dry Weight Start Date: 02/12/23 Status: Ordered losartan 50 mg oral tablet 1 tablet, By Mouth, Daily, # 90 tablet, 1 Refills, Maintenance, 11/28/22 21:33:00 EDT, [facility] #[id number], 176.8, cm, 11/05/22 11:22:00 EDT, Height, 127.4, kg, 05/17/22 4:58:00 EST, Dry Weight Start Date: 11/28/22 Status: Ordered mupirocin 2% topical ointment See Instructions, APPLY TOPICALLY TO THE AFFECTED AREA THREE TIMES DAILY FOR 14 DAYS, # 22 Gm, 0 Refills, Maintenance, 03/27/23 8:33:00 EST, [facility] #66835, 10, APPLY TOPICALLY TO THE AFFECTED AREA THREE TIMES DAILY FOR 14 DAYS, 176.8, cm... Start Date: 03/27/23 Status: Ordered oxyCODONE 5 mg oral tablet 5 mg, 1, tablet, By Mouth, Every 8 hours, PRN, mass pat ok, ok for less. TAKE ONLY NEEDED, # 45 tablet, Refills 0, Tot. Refills 0, Maintenance, Pain , Moderate, 03/24/23 14:27:00 EST, Route to Pharmacy Electronically, [email or web address] #[id number], P... Start Date: 03/24/23 Stop Date: 04/08/23 Status: Ordered predniSONE 20 mg oral tablet See Instructions, 2 tablets By Mouth Daily for 5 days and then 1 tablet by mouth daily for 5 days, # 15 tablet, 0 Refills, Soft Stop, 01/08/23 16:53:00 EDT, Tablet, [facility] #[id number], Partial fill upon patient request if the prescription is... Start Date: 01/08/23 Status: Ordered Ventolin HFA 108 mcg/inh inhalation aerosol with adapter 2 puffs, Inhalation, Every 6 hours, # 8.5 Gm, 6 Refills, Maintenance, 12/23/22 11:39:00 EDT, [facility] #[id number], 176.8, cm, 12/23/22 11:25:00 EDT, Height, 127.4, [...] Team Personnel Name: Margarito Berger MD Position: [facility] Physician - Primary Care Member Role: PCP Address: Address: [address] [place] [address] Name: Bhumika Castillo RN Position: [facility] RN Member Role: Primary Care Nurse Name: Jaja rAshad RN Position: S RN Member Role: Primary Care Nurse Name: Ludwin Butcher RN Position: S RN Member Role: Primary Care Nurse Care Team Related Persons Name: GARRETT FUENTES Address: [address] [place] [address] Name: MARLO REINOSO Name: PT STS, NONE Name: EFFIE RICKETTS Name: RANDALL RICKETTS
--- OUTSIDE RECORDS SUMMARY | 2023-09-25 00:33 | XMS_ITS | Continuity of Care Document ---
Author Organization [facility] Address [address] [place] [address]- Care Team Providers Care Maid Housekeeper Name Role Phone Margarito Berger MD Primary Care Physician Encounter [facility] [place] Date(s): 02/25/23 - 03/04/23 [facility] [address] [place] [address]- Attending Physician: Not on Staff, Attending MD [...] 03/07/23 16:27:00 EST, 02/25/23 16:27:00 EDT, Tablet, [facility] #[id number], Partial fill upon patient request if the prescription is for a schedule II opioid... Start Date: 02/25/23 Stop Date: 03/07/23 Status: Ordered cyclobenzaprine 10 mg oral tablet 10 mg, 1, tablet, By Mouth, 3 times a day, PRN spasms, # 60 tablet, Refills 0, Tot. Refills 0, Maintenance, 02/27/23 17:04:00 EDT, Route to Pharmacy Electronically, [facility] #[id number], Partial fill upon patient request if the prescription is... Start Date: 02/27/23 Status: Ordered diclofenac sodium 75 mg oral delayed release tablet See Instructions, TAKE 1 TABLET BY MOUTH TWICE DAILY WITH FOOD DIRECTED, # 60 tablet, 0 Refills,01/29/23 13:09:00 EDT, [facility] #[id number], 176.8, cm, 01/24/23 10:59:00 EDT, Height, 127.4, kg, 05/17/22 4:58:00 EST, Dry Weight Start Date: 01/29/23 Status: Ordered EpiPen 2-Michael 0.3 mg injectable kit = 0.3 mg, Intramuscular, Once, PRN severe allergic reaction, may repeat if necessary, # 2 each, 0 Refills, Soft Stop, 01/24/23 12:05:00 EDT, [facility] #[id number], 176.8, cm, 01/24/23 10:59:00 EDT, Height, 127.4, kg, 05/17/22 4:58:00 EST, Dry We... Start Date: 01/24/23 Status: Ordered hydrOXYzine hydrochloride 50 mg oral tablet 1 tablet = 50 mg, By Mouth, 3 times a day, # 90 tablet, 1 Refills, Maintenance, 02/12/23 8:08:00 EDT, [facility] #[id number], 176.8, cm, 01/24/23 10:59:00 EDT, Height, 127.4, kg, 05/17/22 4:58:00 EST, Dry Weight Start Date: 02/12/23 Status: Ordered losartan 50 mg oral tablet 1 tablet, By Mouth, Daily, # 90 tablet, 1 Refills, Maintenance, 11/28/22 21:33:00 EDT, [facility] #[id number], 176.8, cm, 11/05/22 11:22:00 EDT, Height, 127.4, kg, 05/17/22 4:58:00 EST, Dry Weight Start Date: 11/28/22 Status: Ordered mupirocin 2% topical ointment See Instructions, APPLY TOPICALLY TO THE AFFECTED AREA THREE TIMES DAILY FOR 14 DAYS, # 22 Gm, 0 Refills, Maintenance, 02/19/23 12:57:00 EDT, [facility] #[id number], 10, APPLY TOPICALLY TO THE AFFECTED AREA THREE TIMES DAILY FOR 14 DAYS, 176.8, c... Start Date: 02/19/23 Status: Ordered oxyCODONE 5 mg oral tablet 5 mg, 1, tablet, By Mouth, Every 8 hours, PRN, mass pat ok, ok for less. TAKE ONLY NEEDED, # 45 tablet, Refills 0, Tot. Refills 0, Maintenance, Pain , Moderate, 02/27/23 17:09:00 EDT, Route to Pharmacy Electronically, [facility] #[id number], P... Start Date: 02/27/23 Stop Date: 03/14/23 Status: Ordered predniSONE 20 mg oral tablet See Instructions, 2 tablets By Mouth Daily for 5 days and then 1 tablet by mouth daily for 5 days, # 15 tablet, 0 Refills, Soft Stop, 01/08/23 16:53:00 EDT, Tablet, [facility] #[id number], Partial fill upon patient request if the prescription is... Start Date: 01/08/23 Status: Ordered triamcinolone 0.025% topical ointment 1 application, Topically, 2 times a day, for 14 days, # 60 Gm, 3 Refills, Acute 03/27/23 12:53:00 EST, 01/30/23 12:53:00 EDT, Ointment, [facility] #70909, Partial fill upon patient request if the prescription is for a schedule II opioid drug... Start Date: 01/30/23 Stop Date: 03/27/23 Status: Ordered Ventolin HFA 108 mcg/inh inhalation aerosol with adapter 2 puffs, Inhalation, Every 6 hours, # 8.5 Gm, 6 Refills, Maintenance, 12/23/22 11:39:00 EDT, [facility] #[id number], 176.8, cm, 12/23/22 11:25:00 EDT, Height, 127.4, [...] Care Member Role: PCP Address: Address: [address] [place] [address] Name: Bhumika Castillo RN Position: [facility] RN Member Role: Primary Care Nurse Name: Jaja Arshad RN Position: [facility] RN Member Role: Primary Care Nurse Name: Ludwin Butcher RN Position: [facility] RN Member Role: Primary Care Nurse Care Team Related Persons Name: GARRETT FUENTES Address: home [address] [place] [address] Name: MARLO REINOSO Name: PT STS, NONE Name: EFFIE RICKETTS Name: RANDALL RICKETTS
--- OUTSIDE RECORDS SUMMARY | 2023-09-25 00:33 | XMS_ITS | Continuity of Care Document ---
Author Organization [facility] Address [address] [place] [address]- Care Team Providers Care Ic Designer Standard Cells Name Role Phone Margarito Berger MD Primary Care Physician Encounter [facility] [place] Date(s): 01/22/21 - 01/29/21 [facility] [address] [place] [address]- Encounter Diagnosis Dermatitis(Discharge Diagnosis) - 01/22/21 Morbid obesity(Discharge Diagnosis) - 01/22/21 Prediabetes(Discharge Diagnosis) - 01/22/21 Tobacco use disorder(Discharge Diagnosis) - 01/22/21 BMI 45.0-49.9, adult(Discharge Diagnosis) - 01/22/21 Attending Physician: Margarito Berger MD Allergies, Adverse [...] each, 6 Refills, Maintenance, 01/08/21 12:55:00 EDT, [facility] #74005, Partial fill upon patient request if the prescription is for a schedule II opioid drug., 2 puffs Inhalatio... Start Date: 01/08/21 Status: Ordered EpiPen 2-Michael 0.3 mg injectable kit = 0.3 mg, Intramuscular, Once, PRN severe allergic reaction, may repeat if necessary, # 2 each, 0 Refills, Soft Stop, 11/06/20 13:52:00 EDT, [facility] #[id number], 176.8, cm, 11/06/20 13:38:00 EDT, Height, 140.3, kg, 11/06/20 13:38:00 EDT, Dry W... Start Date: 11/06/20 Status: Ordered hydrOXYzine hydrochloride 50 mg oral tablet See Instructions, TAKE 1 TABLET BY MOUTH FOUR TIMES DAILY NEEDED FOR ANXIETY., # 40 tablet, 0 Refills, [facility] #57511, 176.8, cm, 01/08/21 12:47:00 EDT, Height, 140.3, [...] 11/06/20 13:53:00 EDT, Route to Pharmacy Electronically, [facility] #[id number], 176.8, cm, 11/06/20 13:3... Start Date: 11/06/20 [...] 11/22/20 14:41:00 EDT, Route to Pharmacy Electronically, [facility] #[id number], Partial fill upon patientrequest if the prescription is for a schedule II op... Start Date: 11/22/20 Status: Ordered metFORMIN 750 mg oral tablet, extended release 1 tablet = 750 mg, By Mouth, Daily, # 60 tablet, 0 Refills, Maintenance, 01/22/21 16:38:00 EDT, ER Tablet, [facility] #27604, Partial fill upon patient request if the prescription is for a schedule II opioid drug., 176.8, cm, 01/22/21 16:00:... Start Date: 01/22/21 Status: Ordered Nicotine 2 mg gum 1 each = 2 mg, Chew, Every 2 hours, PRN as needed for smoking cessation, # 40 each, 0 Refills, Acute 02/19/21 12:00:00 EDT, 01/22/21 16:40:00 EDT, Gum, [facility] #[id number], Partial fill upon patient request if the prescription is for a schedul... Start Date: 01/22/21 Stop Date: 02/19/21 Status: Ordered nicotine 21 mg/24 hr transdermal film, extended release 1 patch, Topically, Daily, for 30 days, # 30 patch, 0 Refills, Acute 02/21/21 16:40:00 EDT, 01/22/21 16:40:00 EDT, Patch, [facility] #[id number], Partial fill upon patient request if the [...] Status Clinical Service Informant Dermatitis Discharge Diagnosis 01/22/21 Morbid obesity Discharge Diagnosis 01/22/21 Tobacco use disorder Discharge Diagnosis 01/22/21 Prediabetes Discharge Diagnosis 01/22/21 BMI 45.0-49.9, adult Discharge Diagnosis 01/22/21 Vital Signs Most recent to oldest [Reference Range]: 1 Height 176.8 cm (01/22/21 4:00 PM) Weight 145.3 kg (01/22/21 4:00 PM) Oxygen Saturation [94-100 %] 95 % (01/22/21 4:00 PM) Pulse Rate [55-90 bpm] 94 bpm *H* (01/22/21 4:00 PM) Body Mass Index [18.5-24.99] 46.48 *>HHI* (01/22/21 4:00 PM) Blood Pressure [90-138/55-84 mm Hg] 141/ 89mm Hg *H* (01/22/21 4:00 PM) Blood pressure sites Arm, left (01/22/21 4:00 PM) Weight Obtained Via Standing scale (01/22/21 4:00 PM) Social History Social History Type Response Smoking Status 5-9 cigarettes (betw een 1/4 to 1/2 pack)/day in last 30 days; Tobacco use times per day: 7; entered on: 12/31/18 Sex
--- OUTSIDE RECORDS SUMMARY | 2023-09-25 00:33 | XMS_ITS | Continuity of Care Document ---
Author Organization [facility] Address [address] [place] [address]- Care Team Providers Care Top Hat Body Maker Name Role Phone Margarito Berger MD Primary Care Physician [place] [facility] [place]): 02/04/23 - 03/06/23 [facility] [address] [place] [address]- Allergies, Adverse Reactions, Alerts No Known Medication [...] 03/07/23 16:27:00 EST, 02/25/23 16:27:00 EDT, Tablet, [facility] #[id number], Partial fill upon patient request if the prescription is for a schedule II opioid... Start Date: 02/25/23 Stop Date: 03/07/23 Status: Ordered cyclobenzaprine 10 mg oral tablet 10 mg, 1, tablet, By Mouth, 3 times a day, PRN spasms, # 60 tablet, Refills 0, Tot. Refills 0, Maintenance, 02/27/23 17:04:00 EDT, Route to Pharmacy Electronically, [facility] #[id number], Partial fill upon patient request if the prescription is... Start Date: 02/27/23 Status: Ordered diclofenac sodium 75 mg oral delayed release tablet See Instructions, TAKE 1 TABLET BY MOUTH TWICE DAILY WITH FOOD DIRECTED, # 60 tablet, 0 Refills,01/29/23 13:09:00 EDT, [facility] #[id number], 176.8, cm, 01/24/23 10:59:00 EDT, Height, 127.4, kg, 05/17/22 4:58:00 EST, Dry Weight Start Date: 01/29/23 Status: Ordered EpiPen 2-Michael 0.3 mg injectable kit = 0.3 mg, Intramuscular, Once, PRN severe allergic reaction, may repeat if necessary, # 2 each, 0 Refills, Soft Stop, 01/24/23 12:05:00 EDT, [facility] #[id number], 176.8, cm, 01/24/23 10:59:00 EDT, Height, 127.4, kg, 05/17/22 4:58:00 EST, Dry We... Start Date: 01/24/23 Status: Ordered hydrOXYzine hydrochloride 50 mg oral tablet 1 tablet = 50 mg, By Mouth, 3 times a day, # 90 tablet, 1 Refills, Maintenance, 02/12/23 8:08:00 EDT, [facility] #[id number], 176.8, cm, 01/24/23 10:59:00 EDT, Height, 127.4, kg, 05/17/22 4:58:00 EST, Dry Weight Start Date: 02/12/23 Status: Ordered losartan 50 mg oral tablet 1 tablet, By Mouth, Daily, # 90 tablet, 1 Refills, Maintenance, 11/28/22 21:33:00 EDT, [facility] #[id number], 176.8, cm, 11/05/22 11:22:00 EDT, Height, 127.4, kg, 05/17/22 4:58:00 EST, Dry Weight Start Date: 11/28/22 Status: Ordered mupirocin 2% topical ointment See Instructions, APPLY TOPICALLY TO THE AFFECTED AREA THREE TIMES DAILY FOR 14 DAYS, # 22 Gm, 0 Refills, Maintenance, 02/19/23 12:57:00 EDT, [facility] #[id number], 10, APPLY TOPICALLY TO THE AFFECTED AREA THREE TIMES DAILY FOR 14 DAYS, 176.8, c... Start Date: 02/19/23 Status: Ordered oxyCODONE 5 mg oral tablet 5 mg, 1, tablet, By Mouth, Every 8 hours, PRN, mass pat ok, ok for less. TAKE ONLY NEEDED, # 45 tablet, Refills 0, Tot. Refills 0, Maintenance, Pain , Moderate, 02/27/23 17:09:00 EDT, Route to Pharmacy Electronically, [facility] #[id number], P... Start Date: 02/27/23 Stop Date: 03/14/23 Status: Ordered predniSONE 20 mg oral tablet See Instructions, 2 tablets By Mouth Daily for 5 days and then 1 tablet by mouth daily for 5 days, # 15 tablet, 0 Refills, Soft Stop, 01/08/23 16:53:00 EDT, Tablet, [facility] #[id number], Partial fill upon patient request if the prescription is... Start Date: 01/08/23 Status: Ordered triamcinolone 0.025% topical ointment 1 application, Topically, 2 times a day, for 14 days, # 60 Gm, 3 Refills, Acute 03/27/23 12:53:00 EST, 01/30/23 12:53:00 EDT, Ointment, [facility] #[id number], Partial fill upon patient request if the prescription is for a schedule II opioid drug... Start Date: 01/30/23 Stop Date: 03/27/23 Status: Ordered Ventolin HFA 108 mcg/inh inhalation aerosol with adapter 2 puffs, Inhalation, Every 6 hours, # 8.5 Gm, 6 Refills, Maintenance, 12/23/22 11:39:00 EDT, [facility] #[id number], 176.8, cm, 12/23/22 11:25:00 EDT, Height, 127.4, [...] Team Personnel Name: Margarito Berger MD Position: [facility] Physician - Primary Care Member Role: PCP Address: Address: [address] [place] [address] Name: Bhumika Castillo RN Position: [facility] SN RN Member Role: Primary Care Nurse Name: Jaja Arshad RN Position: [facility] RN Member Role: Primary Care Nurse Name: Ludwin Butcher RN Position: [facility] RN Member Role: Primary Care Nurse Care Team Related Persons Name: GARRETT FUENTES Address: [address] [place] [address] Name: MARLO REINOSO Name: PT STS, NONE Name: EFFIE RICKETTS Name: RANDALL RICKETTS
--- OUTSIDE RECORDS SUMMARY | 2023-09-25 00:33 | XMS_ITS | Continuity of Care Document ---
Author Organization [facility] Address [address] [place] [address]- Care Team Providers Care Positive Printer Operator Name Role Phone Margarito Berger MD Primary Care Physician [id number] Date(s): 03/08/22 - 07/06/22 [facility] [address] [place] [address]- Attending Physician: Margarito Berger MD Allergies, Adverse [...] 07/01/22 17:28:00 EST, Route to Pharmacy Electronically, [facility] #[id number], Partial fill upon patient re... Start Date: 07/01/22 Stop Date: 07/15/22 Status: Ordered EpiPen 2-Michael 0.3 mg injectable kit = 0.3 mg, Intramuscular, Once, PRN severe allergic reaction, may repeat if necessary, # 2 each, 0 Refills, Soft Stop, 11/06/20 13:52:00 EDT, [facility] #[id number], 176.8, cm, 11/06/20 13:38:00 EDT, Height, 140.3, kg, 11/06/20 13:38:00 EDT, Dry W... Start Date: 11/06/20 Status: Ordered hydrOXYzine hydrochloride 50 mg oral tablet See Instructions, TAKE 1 TABLET BY MOUTH FOUR TIMES DAILY FOR 12 DAYS NEEDED FOR ANXIETY, # 48 tablet, 0 Refills, Maintenance, 06/14/22 15:46:00 EST, [facility] #[id number], 176.8, cm, 05/01/22 13:41:00 EST, Height, 127.4, kg, 05/17/22 4:58:00... Start Date: 06/14/22 Status: Ordered hydrOXYzine hydrochloride 50 mg oral tablet See Instructions, TAKE 1 TABLET BY MOUTH FOUR TIMES DAILY FOR 12 DAYS NEEDED FOR ANXIETY, # 48 tablet, 0 Refills, Maintenance, 07/01/22 17:28:00 EST, [facility] #[id number], 176.8, cm, 05/01/22 13:41:00 EST, Height, 127.4, [...] tablet, 1 Refills, Maintenance, 06/03/22 11:27:00 EST, [facility] #[id number], 176.8, cm, 05/01/22 13:41:00 EST, Height, 127.4, [...] Tot. Refills 0, Maintenance, Pain , Moderate, 06/25/22 8:16:00 EST, Route to Pharmacy Electronically, [facility] #[id number], P... Start Date: 06/25/22 Stop Date: 07/25/22 Status: [...] 04/09/22 15:33:00 EST, Route to Pharmacy Electronically, [id number], [id number], 176.8, cm, 02/28/22 10:47:00 EDT, Height, 123.4,... [...] Berger MD Position: [facility] Primary Care Physician Member Role: PCP Address: Address: [address] [place] [id number] Name: Bhumika Castillo RN Position: [facility] SN RN Member Role: Primary Care Nurse Name: Jaja Arshad RN Position: [facility] RN Member Role: Primary Care Nurse Name: Ludwin Butcher RN Position: [facility] RN Member Role: Primary Care Nurse Care Team Related Persons Name: GARRETT FUENTES Address: home [address] [place] [address] Name: MARLO REINOSO Name: PT STS, NONE Name: EFFIE RICKETTS Name: RANDALL RICKETTS
--- OUTSIDE RECORDS SUMMARY | 2023-09-25 00:34 | XMS_ITS | Continuity of Care Document ---
Author Organization [facility] Address [address] [place] [address]- Care Team Providers Care Housekeeping Worker Name Role Phone Margarito Berger MD Primary Care Physician Encounter [facility] Date(s): 02/01/21 - 02/08/21 [facility] [address] [place] [address]- Encounter Diagnosis BMI 45.0-49.9, adult(Discharge Diagnosis) - 02/01/21 Morbid obesity(Discharge Diagnosis) - 02/01/21 Tobacco use(Discharge Diagnosis) - 02/01/21 Daytime sleepiness(Discharge Diagnosis) - 02/01/21 Attending Physician: Margarito Berger MD Allergies, Adverse [...] each, 6 Refills, Maintenance, 01/08/21 12:55:00 EDT, [facility], [email or web address] #[id number], Partial fill upon patient request if the prescription is for a schedule II opioid drug., 2 puffs Inhalatio... Start Date: 01/08/21 Status: Ordered EpiPen 2-Michael 0.3 mg injectable kit = 0.3 mg, Intramuscular, Once, PRN severe allergic reaction, may repeat if necessary, # 2 each, 0 Refills, Soft Stop, 11/06/20 13:52:00 EDT, [facility] #[id number], 176.8, cm, 11/06/20 13:38:00 EDT, Height, 140.3, kg, 11/06/20 13:38:00 EDT, Dry W... Start Date: 11/06/20 Status: Ordered hydrOXYzine hydrochloride 50 mg oral tablet See Instructions, TAKE 1 TABLET BY MOUTH FOUR TIMES DAILY NEEDED FOR ANXIETY., # 40 tablet, 0 Refills, [facility] #[id number], 176.8, cm, 01/08/21 12:47:00 EDT, Height, 140.3, [...] 11/06/20 13:53:00 EDT, Route to Pharmacy Electronically, [facility] #[id number], 176.8, cm, 11/06/20 13:3... Start Date: 11/06/20 [...] 11/22/20 14:41:00 EDT, Route to Pharmacy Electronically, [facility] #[id number], Partial fill upon patientrequest if the prescription is for a schedule II op... Start Date: 11/22/20 Status: Ordered metFORMIN 750 mg oral tablet, extended release 1 tablet = 750 mg, By Mouth, Daily, # 60 tablet, 0 Refills, Maintenance, 01/22/21 16:38:00 EDT, ER Tablet, [facility] #[id number], Partial fill upon patient request if the prescription is for a schedule II opioid drug., 176.8, cm, 01/22/21 16:00:... Start Date: 01/22/21 Status: Ordered Nicotine 2 mg gum 1 each = 2 mg, Chew, Every 2 hours, PRN as needed for smoking cessation, # 40 each, 0 Refills, Acute 02/19/21 12:00:00 EDT, 01/22/21 16:40:00 EDT, Gum, [facility] #[id number], Partial fill upon patient request if the prescription is for a schedul... Start Date: 01/22/21 Stop Date: 02/19/21 Status: Ordered nicotine 21 mg/24 hr transdermal film, extended release 1 patch, Topically, Daily, for 30 days, # 30 patch, 0 Refills, Acute 02/21/21 16:40:00 EDT, 01/22/21 16:40:00 EDT, Patch, [facility] #[id number], Partial fill upon patient request if the [...] Effective Dates Health Status Clinical Service Informant BMI 45.0-49.9, adult Discharge Diagnosis 02/01/21 Morbid obesity Discharge Diagnosis 02/01/21 Tobacco use Discharge Diagnosis 02/01/21 Daytime sleepiness Discharge Diagnosis 02/01/21 Vital Signs Most recent to oldest [Reference Range]: 1 Height 176.8 cm (02/01/21 4:07 PM) Social History Social History Type Response Smoking Status 5-9 cigarettes (betw een 1/4 to 1/2 pack)/day in last 30 days; Tobacco use times per day: 7; entered on: 12/31/18 Sex
--- OUTSIDE RECORDS SUMMARY | 2023-09-25 00:34 | XMS_ITS | Continuity of Care Document ---
Author Organization [facility] Address [address] [place] [address]- Care Team Providers Care Soils Analyst Name Role Phone Ab FRAGA, Margarito Dolan Primary Care Physician [place] [facility] [place]/21 [facility] [address] [place] [address]- Allergies, Adverse Reactions, Alerts No Known Medication [...] 0 Refills, Soft Stop, 11/06/20 13:52:00 EDT, [email or web address] #[id number], 176.8, cm, 11/06/20 13:38:00 EDT, Height, 140.3, kg, 11/06/20 13:38:00 EDT, Dry W... Start Date: 11/06/20 Status: Ordered hydrOXYzine hydrochloride 50 mg oral tablet 1 tablet, By Mouth, 4 times a day, PRN NEEDED FOR ANXIETY, for 12 days, # 48 tablet, 0 Refills, Physician Stop 08/06/21 12:03:00 EDT, 07/25/21 12:03:00 EDT, [facility] #30, 176.8, cm, 06/21/21 15:26:00 EST, Height, 140.3, kg, 11/06/20 13:... Start Date: 07/25/21 Stop Date: 08/06/21 Status: Ordered ibuprofen 800 mg oral tablet 1, tablet, By Mouth, 3 times a day, PRN, TAKE WITH FOOD OR MILK, # 90 tablet, Refills 0, NEEDED FOR PAIN, Route to Pharmacy Electronically, [facility] #[id number], 176.8, cm, 06/21/21 15:26:00 EST, Height, 140.3, [...] 02/26/21 14:39:00 EDT, Route to Pharmacy Electronically, [facility] #[id number], Partial fill upon patientrequest if the prescription is for a schedule II op... Start Date: 02/26/21 Stop Date: 05/27/21 Status: Ordered losartan 50 mg oral tablet 1 tablet = 50 mg, By Mouth, Daily, for 30 days, # 30 tablet, 5 Refills, Physician Stop 10/13/21 14:50:00 EDT, 04/16/21 14:50:00 EST, [facility] #[id number], 176.8, cm, 02/01/21 16:07:00 EDT, Height, 140.3, kg, 11/06/20 13:38:00 EDT, Dry Weight Start Date: 04/16/21 Stop Date: 10/13/21 Status: Ordered metFORMIN 750 mg oral tablet, extended release 1 tablet, By Mouth, Daily, # 60 tablet, 5 Refills, [facility] #[id number], 176.8, cm, 02/02/2116:07:00 EDT, Height, 140.3, kg, 11/06/20 13:38:00 EDT, Dry Weight Start Date: 03/30/21 Status: Ordered oxyCODONE 5 mg oral tablet 5 mg, 1, tablet, By Mouth, Every 8 hours, PRN, Take only as needed, # 45 tablet, Refills 0, Tot. Refills 0, Maintenance, Pain , Moderate, 08/02/21 17:20:00 EDT, Route to Pharmacy Electronically, [facility] #[id number], Partial fill upon patient r... Start Date: [...] a schedule II opioid . Start Date: 07/24/21 Stop Date: 08/23/21 Status: Ordered ProAir HFA 90 mcg/inh inhalation aerosol with adapter 2, puffs, Inhalation, Every 6 hours, PRN, # 8.5 Gm, Refills 5, Route to Pharmacy Electronically, [id number], [facility] #[id number], 176.8, cm, 05/18/21 14:17:00 EST, Height, 140.3, kg, 11/06/20 13:38:00 EDT, Dry Weight Start Date: 06/13/21 Status: Ordered triamcinolone 0.1% topical cream See Instructions, APPLY TOPICALLY TO THE AFFECTED AREA ON ARMS AND LEGS THREE TIMES DAILY. MIX WITH16 OUNCES OF EUCERIN CREAM, # 80 Gm, 0 Refills, [facility] #[id number], 14, APPLY TOPICALLY TOTHE AFFECTED AREA ON [...]
--- OUTSIDE RECORDS SUMMARY | 2023-09-25 00:34 | XMS_ITS | Continuity of Care Document ---
Author Organization [facility] Address [address] [place] [address]- Care Team Providers Care Metal Room Dental Technician Name Role Phone Ab FRAGA, Margarito Dolan Primary Care Physician [place] [facility] [place] 02/19/23 [facility] [address] [place] [address]- Allergies, Adverse Reactions, Alerts No Known Medication [...] 01/23/23 17:29:00 EDT, Route to Pharmacy Electronically, [facility] #[id number], Partial fill upon patient request if the prescription is... Start Date: 01/23/23 Status: Ordered diclofenac sodium 75 mg oral delayed release tablet See Instructions, TAKE 1 TABLET BY MOUTH TWICE DAILY WITH FOOD DIRECTED, # 60 tablet, 0 Refills,01/29/23 13:09:00 EDT, [facility] #[id number], 176.8, cm, 01/24/23 10:59:00 EDT, Height, 127.4, kg, 05/17/22 4:58:00 EST, Dry Weight Start Date: 01/29/23 Status: Ordered EpiPen 2-Michael 0.3 mg injectable kit = 0.3 mg, Intramuscular, Once, PRN severe allergic reaction, may repeat if necessary, # 2 each, 0 Refills, Soft Stop, 01/24/23 12:05:00 EDT, [facility] #[id number], 176.8, cm, 01/24/23 10:59:00 EDT, Height, 127.4, kg, 05/17/22 4:58:00 EST, Dry We... Start Date: 01/24/23 Status: Ordered hydrOXYzine hydrochloride 50 mg oral tablet 1 tablet = 50 mg, By Mouth, 3 times a day, # 90 tablet, 1 Refills, Maintenance, 02/12/23 8:08:00 EDT, [facility] #[id number], 176.8, cm, 01/24/23 10:59:00 EDT, Height, 127.4, kg, 05/17/22 4:58:00 EST, Dry Weight Start Date: 02/12/23 Status: Ordered losartan 50 mg oral tablet 1 tablet, By Mouth, Daily, # 90 tablet, 1 Refills, Maintenance, 11/28/22 21:33:00 EDT, [facility] #[id number], 176.8, cm, 11/05/22 11:22:00 EDT, Height, 127.4, kg, 05/17/22 4:58:00 EST, Dry Weight Start Date: 11/28/22 Status: Ordered mupirocin 2% topical ointment See Instructions, APPLY TOPICALLY TO THE AFFECTED AREA THREE TIMES DAILY FOR 14 DAYS, # 22 Gm, 0 Refills, Maintenance, 02/19/23 12:57:00 EDT, [facility] #30112, 10, APPLY TOPICALLY TO THE AFFECTED AREA THREE TIMES DAILY FOR 14 DAYS, 176.8, c... Start Date: 02/19/23 Status: Ordered oxyCODONE 5 mg oral tablet 5 mg, 1, tablet, By Mouth, Every 8 hours, PRN, mass pat ok, ok for less. TAKE ONLY NEEDED, # 45 tablet, Refills 0, Tot. Refills 0, Maintenance, Pain , Moderate, 02/11/23 9:57:00 EDT, Route to Pharmacy Electronically, [facility] #[id number], Pa... Start Date: 02/11/23 Stop Date: 02/26/23 Status: Ordered predniSONE 20 mg oral tablet See Instructions, 2 tablets By Mouth Daily for 5 days and then 1 tablet by mouth daily for 5 days, # 15 tablet, 0 Refills, Soft Stop, 01/08/23 16:53:00 EDT, Tablet, [facility] #[id number], Partial fill upon patient request if the prescription is... Start Date: 01/08/23 Status: Ordered triamcinolone 0.025% topical ointment 1 application, Topically, 2 times a day, for 14 days, # 60 Gm, 3 Refills, Acute 03/27/23 12:53:00 EST, 01/30/23 12:53:00 EDT, Ointment, [facility] #[id number], Partial fill upon patient request if the prescription is for a schedule II opioid drug... Start Date: 01/30/23 Stop Date: 03/27/23 Status: Ordered Ventolin HFA 108 mcg/inh inhalation aerosol with adapter 2 puffs, Inhalation, Every 6 hours, # 8.5 Gm, 6 Refills, Maintenance, 12/23/22 11:39:00 EDT, [facility] #[id number], 176.8, cm, 12/23/22 11:25:00 EDT, Height, 127.4, [...] Personnel Name: Ab FRAGA, Margarito Dolan Position: [facility] Physician - Primary Care Member Role: PCP Address: Address: [address] [place] [id number] Name: Bhumika Castillo RN Position: [facility] SN RN Member Role: Primary Care Nurse Name: Jaja Arshad RN Position: [facility] RN Member Role: Primary Care Nurse Name: Ludwin Butcher RN Position: [facility] RN Member Role: Primary Care Nurse Care Team Related Persons Name: GARRETT FUENTES Address: [address] [place] [address] Name: MARLO REINOSO Name: PT STS, NONE Name: EFFIE RICKETTS Name: RANDALL RICKETTS
--- OUTSIDE RECORDS SUMMARY | 2023-09-25 00:34 | XMS_ITS | Continuity of Care Document ---
Author Organization [facility] Address [address] [place] [address]- Care Team Providers Care Infant Nanny Name Role Phone Jorge Luis FRAGA, Tra Dolan Primary Care Physician [phone] [place] [facility] [place] [facility] [address] [place] [address]- [facility] Attending Physician: Lona Post Admitting [...] EDT Start Date: 09/03/17 Status: Ordered hydrOXYzine pamoate 25 mg oral capsule 1 capsule = 25 mg, By Mouth, 4 times a day, for 14 days, prn itching; may increase to 2 caps as needed for itching, # 56 capsule, 1 Refills, Acute 07/13/19 16:30:00 EDT, 06/15/19 16:30:00 EST, Capsule, [facility] #[id number], 176.8, cm, 12/31/18... Start Date: 06/15/19 Stop Date: 07/13/19 Status: Ordered ibuprofen 800 mg oral tablet [...] tablet, Refills 0, Tot. Refills 0, Acute 08/03/19 17:25:00 EDT, 07/06/19 17:25:00 EDT, Route to Pharmacy Electronically, [facility] #[id number], Partial fill upon patient request, 176.8, cm,... Start Date: 07/06/19 Stop Date: 08/03/19 Status: Ordered Problem List Condition Effective Dates [...]
--- OUTSIDE RECORDS SUMMARY | 2023-09-25 00:34 | XMS_ITS | Continuity of Care Document ---
Author Organization [facility] Address [address] [place] [address]- Care Team Providers Care Battery Tester Field Name Role Phone Margarito Berger MD Primary Care Physician [place] [facility] [place](s): 12/13/21 - 01/12/22 [facility] [address] [place] [address]- Allergies, Adverse Reactions, Alerts No Known Medication [...] 0 Refills, Soft Stop, 11/06/20 13:52:00 EDT, [facility] #[id number], 176.8, cm, 11/06/20 13:38:00 EDT, Height, 140.3, kg, 11/06/20 13:38:00 EDT, Dry W... Start Date: 11/06/20 Status: Ordered hydrOXYzine hydrochloride 50 mg oral tablet See Instructions, TAKE 1 TABLET BY MOUTH FOUR TIMES DAILY FOR 12 DAYS NEEDED FOR ANXIETY, # 48 tablet, 0 Refills, Maintenance, 01/04/22 15:54:00 EDT, [facility] #[id number], 176.8, cm, 12/14/21 16:29:00 EDT, Height, 123.4, kg, 10/12/21 15:16:0... Start Date: 01/04/22 Status: Ordered ibuprofen 800 mg oral tablet 1, tablet, By Mouth, 3 times a day, PRN, TAKE WITH FOOD OR MILK., # 90 tablet, Refills 5, Maintenance, NEEDED FOR PAIN(, 01/04/22 10:09:00 EDT, Route to Pharmacy Electronically, [facility] #[id number], 176.8, cm, 12/14/21 16:29:00 EDT, Height,... Start [...] Mouth, Daily, # 30 tablet, 5 Refills, [facility] #[id number], 176.8, cm, 11/05/2214:43:00 EDT, Height, 123.4, kg, 10/12/21 15:16:00 EDT, Dry Weight Start Date: 11/13/21 Status: Ordered magnesium oxide 250 mg oral tablet See Instructions, TAKE 1 TABLET BY MOUTH DAILY AT BEDTIME FOR 14 DAYS, # 14 tablet, 0 Refills, Maintenance, 01/04/22 15:54:00 EDT, [facility] #[id number], 176.8, cm, 12/14/21 16:29:00 EDT, Height, 123.4, kg, 10/12/21 15:16:00 EDT, Dry Weight Start Date: 01/04/22 Status: Ordered metFORMIN 750 mg oral tablet, extended release 1 tablet, By Mouth, Daily, # 60 tablet, 5 Refills, [facility] #22950, 176.8, cm, 02/02/2116:07:00 EDT, Height, 140.3, kg, [...] 09/28/21 17:08:00 EDT, Route to Pharmacy Electronically, [facility] #[id number],... Start Date: 09/28/21 Stop Date: 10/13/21 Status: Ordered oxyCODONE 5 mg oral tablet 5 mg, 1, tablet, By Mouth, Every 8 hours, PRN, mass pat ok, ok for less. Take only as needed., # 45tablet, Refills 0, Tot. Refills 0, Maintenance, Pain , Moderate, 12/28/21 12:33:00 EDT, Route to Pharmacy Electronically, [facility] #[id number],... Start Date: 12/28/21 Stop Date: 01/27/22 Status: [...] Gm, Refills 5, Route to Pharmacy Electronically, [id number], [facility] #[id number], 176.8, cm, 10/12/21 15:16:00 EDT, Height, 123.4, kg, 10/12/21 15:16:00 EDT, Dry Weight Start Date: 11/05/21 Status: Ordered triamcinolone 0.1% topical cream See Instructions, APPLY TOPICALLY TO THE AFFECTED AREA ON ARMS AND LEGS THREE TIMES DAILY. MIX WITH16 OUNCES OF EUCERIN CREAM, # 80 Gm, 0 Refills, [facility] #[id number], 14, APPLY TOPICALLY TOTHE AFFECTED AREA ON [...] Team Personnel Name: Margarito Berger MD Address: [address] [place] [address]
--- OUTSIDE RECORDS SUMMARY | 2023-09-25 00:34 | XMS_ITS | Continuity of Care Document ---
Author Organization [facility] Address [address] [place] [address] Dr ve [address] [place] [address]- Care Team Providers Care Fast Food Assistant Restaurant Manager Name Role Phone Ab FRAGA, Margarito Dolan Primary Care Physician Encounter [facility] [place] Date(s): 01/20/23 - 02/19/[address] [place] [address]- Attending Physician: Lona Post Admitting Physician: AdmLona parisi Referring Physician: Admtr ArDanita Allergies, Adverse Reactions, Alerts No Known Medication [...] 01/23/23 17:29:00 EDT, Route to Pharmacy Electronically, [facility] #[id number], Partial fill upon patient request if the prescription is... Start Date: 01/23/23 Status: Ordered diclofenac sodium 75 mg oral delayed release tablet See Instructions, TAKE 1 TABLET BY MOUTH TWICE DAILY WITH FOOD DIRECTED, # 60 tablet, 0 Refills,01/29/23 13:09:00 EDT, [facility] #[id number], 176.8, cm, 01/24/23 10:59:00 EDT, Height, 127.4, kg, 05/17/22 4:58:00 EST, Dry Weight Start Date: 01/29/23 Status: Ordered EpiPen 2-Imchael 0.3 mg injectable kit = 0.3 mg, Intramuscular, Once, PRN severe allergic reaction, may repeat if necessary, # 2 each, 0 Refills, Soft Stop, 01/24/23 12:05:00 EDT, [facility] #[id number], 176.8, cm, 01/24/23 10:59:00 EDT, Height, 127.4, kg, 05/17/22 4:58:00 EST, Dry We... Start Date: 01/24/23 Status: Ordered hydrOXYzine hydrochloride 50 mg oral tablet 1 tablet = 50 mg, By Mouth, 3 times a day, # 90 tablet, 1 Refills, Maintenance, 02/12/23 8:08:00 EDT, [facility] #[id number], 176.8, cm, 01/24/23 10:59:00 EDT, Height, 127.4, kg, 05/17/22 4:58:00 EST, Dry Weight Start Date: 02/12/23 Status: Ordered losartan 50 mg oral tablet 1 tablet, By Mouth, Daily, # 90 tablet, 1 Refills, Maintenance, 11/28/22 21:33:00 EDT, [facility] #[id number], 176.8, cm, 11/05/22 11:22:00 EDT, Height, 127.4, kg, 05/17/22 4:58:00 EST, Dry Weight Start Date: 11/28/22 Status: Ordered mupirocin 2% topical ointment See Instructions, APPLY TOPICALLY TO THE AFFECTED AREA THREE TIMES DAILY FOR 14 DAYS, # 22 Gm, 0 Refills, Maintenance, 02/19/23 12:57:00 EDT, [facility] #[id number], 10, APPLY TOPICALLY TO THE AFFECTED AREA THREE TIMES DAILY FOR 14 DAYS, 176.8, c... Start Date: 02/19/23 Status: Ordered oxyCODONE 5 mg oral tablet 5 mg, 1, tablet, By Mouth, Every 8 hours, PRN, mass pat ok, ok for less. TAKE ONLY NEEDED, # 45 tablet, Refills 0, Tot. Refills 0, Maintenance, Pain , Moderate, 02/11/23 9:57:00 EDT, Route to Pharmacy Electronically, [facility] #[id number], Pa... Start Date: 02/11/23 Stop Date: 02/26/23 Status: Ordered predniSONE 20 mg oral tablet See Instructions, 2 tablets By Mouth Daily for 5 days and then 1 tablet by mouth daily for 5 days, # 15 tablet, 0 Refills, Soft Stop, 01/08/23 16:53:00 EDT, Tablet, [facility] #[id number], Partial fill upon patient request if the prescription is... Start Date: 01/08/23 Status: Ordered triamcinolone 0.025% topical ointment 1 application, Topically, 2 times a day, for 14 days, # 60 Gm, 3 Refills, Acute 03/27/23 12:53:00 EST, 01/30/23 12:53:00 EDT, Ointment, [facility] #[id number], Partial fill upon patient request if the prescription is for a schedule II opioid drug... Start Date: 01/30/23 Stop Date: 03/27/23 Status: Ordered Ventolin HFA 108 mcg/inh inhalation aerosol with adapter 2 puffs, Inhalation, Every 6 hours, # 8.5 Gm, 6 Refills, Maintenance, 12/23/22 11:39:00 EDT, [facility] #[id number], 176.8, cm, 12/23/22 11:25:00 EDT, Height, 127.4, [...] Team Personnel Name: Margarito Berger MD Position: [facility] Physician - Primary Care Member Role: PCP Address: Address: [address] [place] [id number] Name: Bhumika Castillo RN Position: [facility] SN RN Member Role: Primary Care Nurse Name: Jaja Arshad RN Position: [facility] RN Member Role: Primary Care Nurse Name: Ludiwn Butcher RN Position: [facility] RN Member Role: Primary Care Nurse Care Team Related Persons Name: GARRETT FUENTES Address: home [address] [place] [address] Name: MARLO REINOSO Name: PT STS, NONE Name: EFFIE RICKETTS Name: RANDALL RICKETTS
--- OUTSIDE RECORDS SUMMARY | 2023-09-25 00:34 | XMS_ITS | Continuity of Care Document ---
Author Organization [facility] Address [address] [place] [address]- Care Team Providers Care Hothouse Worker Name Role Phone Margarito Berger MD Primary Care Physician Encounter [facility] Date(s): 09/10/23 - 09/17/23 [facility] [address] [place] [address]- Encounter Diagnosis Prophylactic antibiotic(Discharge Diagnosis) - 09/10/23 Chronic knee pain(Discharge Diagnosis) - 09/10/23 Chronic low back pain(Discharge Diagnosis) - 09/10/23 Attending Physician: Margarito Berger MD Allergies, Adverse [...] 2 Refills, Soft Stop, 09/10/23 10:59:00 EDT, [facility] #[id number], Partial fill upon patient request if the prescription is for a schedule II opioid drug.,... Start Date: 09/10/23 Status: Ordered cyclobenzaprine 10 mg oral tablet 1, tablet, By Mouth, 3 times a day, PRN, # 270 tablet, Refills 1, Tot. Refills 1, Maintenance, NEEDED FOR SPASMS, 09/10/23 11:17:00 EDT, Route to Pharmacy Electronically, [facility] #[id number], 176.8, cm, 09/10/23 10:40:00 EDT, Height, 127.4,... Start Date: 09/10/23 Stop Date: 03/08/24 Status: Ordered diclofenac sodium 75 mg oral delayed release tablet 1 tablet, By Mouth, 2 times a day with meals, DIRECTED., # 60 tablet, 5 Refills, Maintenance, 07/01/23 20:55:00 EST, [facility] #[id number], 176.8, cm, 04/30/23 7:39:00 EST, Height, 127.4, kg, 05/17/22 4:58:00 EST, Dry Weight Start Date: 07/01/23 Status: Ordered EpiPen 2-Michael 0.3 mg injectable kit = 0.3 mg, Intramuscular, Once, PRN severe allergic reaction, may repeat if necessary, # 2 each, 0 Refills, Soft Stop, 01/24/23 12:05:00 EDT, [facility] #[id number], 176.8, cm, 01/24/23 10:59:00 EDT, Height, 127.4, kg, 05/17/22 4:58:00 EST, Dry We... Start Date: 01/24/23 Status: Ordered losartan 50 mg oral tablet 1 tablet, By Mouth, Daily, # 90 tablet, 1 Refills, Maintenance, 06/05/23 18:32:00 EST, [facility] #[id number], 176.8, cm, 04/30/23 7:39:00 EST, Height, 127.4, kg, 05/17/22 4:58:00 EST, Dry Weight Start Date: 06/05/23 Status: Ordered oxyCODONE 5 mg oral tablet 5 mg, 1, tablet, By Mouth, Every 8 hours, PRN, mass pat ok, ok for less. TAKE ONLY NEEDED DNF 09/09/2023, # 45 tablet, Refills 0, Tot. Refills 0, Maintenance, Pain , Moderate, 09/07/23 14:05:00 EDT, Route to Pharmacy Electronically, [facility]... Start Date: 09/07/23 Stop Date: 09/22/23 Status: Ordered Ventolin HFA 108 mcg/inh inhalation aerosol with adapter 2 puffs, Inhalation, Every 6 hours, # 18 Gm, 5 Refills, Maintenance, 05/25/23 6:11:00 EST, [facility] #[id number], 176.8, cm, 04/30/23 7:39:00 EST, Height, 127.4, [...] Effective Dates Health Status Clinical Service Informant Prophylactic antibiotic Discharge Diagnosis 09/10/23 Chronic knee pain Discharge Diagnosis 09/10/23 Chronic low back pain Discharge Diagnosis 09/10/23 Vital Signs Most recent to oldest [Reference Range]: 1 Height 176.8 cm (09/10/23 10:40 AM) Weight 113.2 kg (09/10/23 10:40 AM) Oxygen Saturation [94-100 %] 96 % (09/10/23 10:40 AM) Pulse Rate [55-90 bpm] 95 bpm *H* (09/10/23 10:40 AM) Body Mass Index [18.5-24.99 kg/m2] 36.21 kg/m2 *>HHI* (09/10/23 10:40 AM) Blood Pressure [90-138/55-84 mm Hg] 127/ 82mm Hg (09/10/23 10:40 AM) Mode of Delivery (Oxygen) Room air (09/10/23 10:40 AM) Blood pressure sites Arm, left (09/10/23 10:40 AM) Weight Obtained Via Standing scale (09/10/23 10:40 AM) Social History Social History Type Response Smoking Status 5-9 cigarettes (betw een 1/4 to 1/2 pack)/day in last 30 days; Tobacco use times per day: 7; entered on: 12/31/18 Sex Note * Miley Daniel: PERFORM Event Display: Patient Education/Instruction Authored Date: [id number] Ambulatory Adult Visit Summary [facility] [address] [place] [address] Name: EDD RICKETTS : 1975?? Visit: 09/10/2023 10:35?? Ambulatory Visit Instructions ?? Your Care Team Primary Care Provider Margarito Berger MD? This Visit Provider Margarito Berger MD Your Diagnosis Prophylactic antibiotic Chronic knee pain Chronic low back pain Vitals Signs Pulse Rate:??95 bpm??High Height: 176.8 cm Systolic Blood Pressure: 127 mm Hg Weight: 113.2 kg Diastolic Blood Pressure: 82 mm Hg Body Mass Index:??36.21 kg/m2??Critical Oxygen Saturation: 96 % Body surface area: 2.36 What to do next Instructions From Your Provider labs ordered ?? [employer]?? first rx??- filled 09/09/2023 # 45 tablets 2nd rx??- due 10/10/2023 # 42 tablets 3rd rx 0??due # 42 - LAST RX?? Scheduled Follow-Up Appointments Friday 2:20 PM EDT ?? With: Ayush Rosenberg MD Where: [facility] Plastic Surgery [address] [place] [id number]- Status: Pending Follow-Up Appointments Follow Up with??Margarito Berger MD When:??12/17/2023 10:40 AM EDT Why: 3 MONTH FOLLOW UP VISIT?? Where: [address] [place] [address]- Follow up Appointment - Ordered?-- in 3 months, 09/10/23 11:18:00 EDT Future Orders Cocaine Urine Screen - Urine, Once, *Est. 01/24/23, Order for Today?? Amphetamine Urine Screen - Routine, Once, 09/10/23 10:55:00 EDT, Order for Today, [facility], Urine?? Barbiturate Urine Screen - Routine, Once, 09/10/23 10:55:00 EDT, Order for Today, [facility], Urine?? Benzodiazepine Urine Screen - Routine, Once, 09/10/23 10:55:00 EDT, Order for Today, [facility], Urine?? Cannabinoid Urine Screen - Routine, Once, 09/10/23 10:55:00 EDT, Order for Today, [facility], Urine?? Cocaine Urine Screen - Routine, Once, 09/10/23 10:55:00 EDT, Order for Today, [facility], Urine?? Methadone Urine - Routine, Once, 09/10/23 10:55:00 EDT, Order for Today, [facility], Urine?? Ethanol Urine - Routine, Once, 09/10/23 10:55:00 EDT, Order for Today, [facility], Urine?? Opiate Screen Urine - Routine, Once, 09/10/23 10:55:00 EDT, Order for Today, [facility], Urine?? Oxycodone Screen Urine - Routine, Once, 09/10/23 10:55:00 EDT, Order for Today, [facility], Urine?? PCP Urine - Routine, Once, 09/10/23 10:55:00 EDT, Order for Today, [facility], Urine?? Comprehensive Metabolic Panel - Routine, Once, 09/10/23 11:11:00 EDT, Order for Today, [facility], Blood?? Medications The list below reflects the information in our records and provided by you today along with any changes made during this visit. Please continue your medications until treatment is completed or stopped by your provider. If this is different from the information you have or there are other questions,please contact the prescribing provider. What How Much When Why Instructions New Cyclobenzaprine (cyclobenzaprine 10 mg oral tablet) 1 tab(s) Oral 3 times a day as needed for NEEDED FOR SPASMS Chronic low back pain Duration: 90 Days Refills: 1 Pickup at [facility] #[id number] Changed Amoxicillin (amoxicillin 500 mg oral capsule) 4 capsule Oral Once Prophylactic antibiotic given 1 hour prior to the procedure ?? Pickup at [facility] #[id number] Unchanged Albuterol (Ventolin HFA 108 mcg/ inh inhalation aerosol with adapter) 2 puff(s) Inhalation Every 6 hours Unchanged Diclofenac (diclofenac sodium 75 mg oral delayed release tablet) 1 tab(s) Oral Two times a day with meals DIRECTED. ?? Unchanged EPINEPHrine (EpiPen 2-Michael 0.3 mg injectable kit) 0.3 Milligram Intramuscular Once as needed for severe allergic reaction may repeat if necessary ?? Unchanged Losartan (losartan 50 mg oral tablet) 1 tab(s) Oral Daily Unchanged Oxycodone (oxyCODONE 5 mg oral tablet) 1 tab(s) Oral Every 8 hours as needed for Pain , Moderate Duration: 15 Days mass pat ok, ok for less. TAKE ONLY NEEDED DNF 2023 ?? Pharmacy Information [facility][id number]: [address], [place] [id number] [phone] ?? What How Much When Comments Stop Taking Doxycycline (doxycycline hyclate 100 mg oral tablet) 1 tab(s) Oral Twice a day Duration: 14 Days Stop Taking HydrOXYzine (hydrOXYzine hydrochloride 50 mg oral tablet) 1 tab(s) Oral 3 times a day Stop Taking HydrOXYzine (hydrOXYzine hydrochloride 50 mg oral tablet) 1 tab(s) Oral 3 times a day as needed for as needed for itching Stop Taking Metformin (metFORMIN 750 mg oral tablet, extended release) 1 tab(s) Oral Daily Stop Taking Mupirocin Topical (mupirocin 2% topical ointment) See instructions APPLY TOPICALLY TO THE AFFECTED AREA THREE TIMES DAILY FOR 14 DAYS ?? Stop Taking PredniSONE (predniSONE 20 mg oral tablet) See instructions 2 tablets By Mouth Daily for 5 days and then 1 tablet by mouth daily for 5 days ?? Stop Taking Triamcinolone Topical (triamcinolone 0.025% topical ointment) 1 hoa Topically 3 times a day Apply to affected area ?? Test Performed Below is a partial list of the tests performed during your Visit. You may have had other tests and procedures not included in this list. Please discuss all test results with your provider. Amphetamine Urine Screen?-- Results Pending -- Barbiturate Urine Screen?-- Results Pending -- Benzodiazepine Urine Screen?-- Results Pending -- Cannabinoid Urine Screen?-- Results Pending -- Cocaine Urine Screen?-- Results Pending -- Comprehensive Metabolic Panel?-- Results Pending -- Ethanol Urine?-- Results Pending -- Methadone Urine?-- Results Pending -- Opiate Screen Urine?-- Results Pending -- Oxycodone Screen Urine?-- Results Pending -- PCP Urine?-- Results Pending -- You will be contacted within 72 hours with your results. Medications and Immunizations Administered Medications Given During Visit No medications given during this visit.?? Allergies (NKA means No Known Allergies) No Known Medication Allergies Other Food Allergy??(tuna fish) Seafood Common Emergency Awareness Tips IS IT A [...] are strongly encouraged to quit. Please call [facility] at [phone] or [phone] ([phone]) or log in to [email or web address] for referrals to smoking cessation programs. ?? The National Suicide Prevention Hotline is available 18/11 if you or someone you know needs to find a reason to keep living. By calling 2-519-763-[employer] (5259) you'll be connected to a skilled, trained counselor at a crisis center in your area. [facility] iExplore Portal You can view and manage your care through the patient portal or by using a health care hoa of your choosing. [facility] is a website that allows you to securely view your medical information including your hospital discharge summary, office visit summaries, medications and follow-up visits. You can also request appointments, renew medications, and request access to your medical information using a health care hoa of your choosing, or just ask a question. You can enroll at [email or web address] or register during your next office visit. [facility], in keeping with [facility] guidance, no longer requires face masks for staff, patientsor visitors in most situations. Similiar to time spent indoors at other locations, there is the chance that you were exposed to repiratory viruses during your time with us (such as flu or COVID-19). If you develop symptoms concerning for a viral respiratory infection, please seek testing (and treatment if indicated) from your medical provider or home test kit. ?? Disclaimer: The information provided is of a general nature and is intended to be used in conjunction with the recommendations and advice of your health care practitioner. Every effort has been made to ensure that the information provided is accurate and complete at the time it is provided to you however, as your needs change, or, as new information becomes available, different or additional instructions may be required. ?? If you have questions, please consult with your primary care provider or pharmacist, as appropriate. This information is not intended to serve as substitution for assessment and evaluation by a qualified health care provider. If you do not have a primary care provider, you may find a [facility] provider by calling [facility] at [phone]. Patient Care team information Care Team Personnel Name: Margarito Berger MD Position: [facility] Physician - Primary Care Member Role: PCP Address: Address: [address] [place] [id number] Name: Bhumika Castillo RN Position: [facility] RN Member Role: Primary Care Nurse Name: Jaja Arshad RN Position: S RN Member Role: Primary Care Nurse Name: Ludwin Butcher RN Position: [facility] RN Member Role: Primary Care Nurse Care Team Related Persons Name: GARRETT FUENTES Address: home [address] [place] [id number] Name: MARLO REINOSO Name: PT STS, NONE Name: EFFIE RICKETTS Name: RANDALL RICKETTS
--- OUTSIDE RECORDS SUMMARY | 2023-09-25 00:34 | XMS_ITS | Continuity of Care Document ---
Author Organization [facility] Address [address] [place] [address]- Care Team Providers Care [employer] Name Role Phone Margarito Berger MD Primary Care Physician [place] [facility] [place]23 [place] 05/[place]/23 [facility] [address] [place] [address]- Allergies, Adverse Reactions, Alerts No Known Medication [...] 05/02/23 11:36:00 EST, Route to Pharmacy Electronically, [facility] #[id number], Partial fill upon patient request if the prescription is... Start Date: 05/02/23 Status: Ordered diclofenac sodium 75 mg oral delayed release tablet 1 tablet, By Mouth, 2 times a day with meals, DIRECTED., # 60 tablet, 1 Refills, Maintenance, 05/04/23 6:22:00 EST, [facility] #[id number], 176.8, cm, 04/30/23 7:39:00 EST, Height, 127.4, kg,05/17/22 4:58:00 EST, Dry Weight Start Date: 05/04/23 Status: Ordered doxycycline hyclate 100 mg oral tablet See Instructions, TAKE 1 TABLET BY MOUTH TWICE DAILY FOR 14 DAYS, # 28 tablet, 0 Refills, Maintenance, 04/10/23 14:15:00 EST, [facility] #[id number], 176.8, cm, 01/24/23 10:59:00 EDT, Height, 127.4, kg, 05/17/22 4:58:00 EST, Dry Weight Start Date: 04/10/23 Status: Ordered EpiPen 2-Michael 0.3 mg injectable kit = 0.3 mg, Intramuscular, Once, PRN severe allergic reaction, may repeat if necessary, # 2 each, 0 Refills, Soft Stop, 01/24/23 12:05:00 EDT, [facility] #[id number], 176.8, cm, 01/24/23 10:59:00 EDT, Height, 127.4, kg, 05/17/22 4:58:00 EST, Dry We... Start Date: 01/24/23 Status: Ordered hydrOXYzine hydrochloride 50 mg oral tablet 1 tablet = 50 mg, By Mouth, 3 times a day, # 90 tablet, 1 Refills, Maintenance, 04/25/23 11:23:00 EST, [facility] #[id number], 176.8, cm, 01/24/23 10:59:00 EDT, Height, 127.4, kg, 05/17/22 4:58:00 EST, Dry Weight Start Date: 04/25/23 Status: Ordered hydrOXYzine hydrochloride 50 mg oral tablet See Instructions, TAKE 1 TABLET BY MOUTH THREE TIMES DAILY, # 90 tablet, 0 Refills, Maintenance, 04/25/23 14:10:00 EST, [facility] #[id number], 176.8, cm, 01/24/23 10:59:00 EDT, Height, 127.4, kg, 05/17/22 4:58:00 EST, Dry Weight Start Date: 04/25/23 Status: Ordered losartan 50 mg oral tablet 1 tablet, By Mouth, Daily, # 90 tablet, 1 Refills, Maintenance, 11/28/22 21:33:00 EDT, [facility] #[id number], 176.8, cm, 11/05/22 11:22:00 EDT, Height, 127.4, kg, 05/17/22 4:58:00 EST, Dry Weight Start Date: 11/28/22 Status: Ordered metFORMIN 750 mg oral tablet, extended release 1 tablet = 750 mg, By Mouth, Daily, # 90 tablet, 1 Refills, Maintenance, 05/19/23 11:12:00 EST, ER Tablet, [facility] #[id number], Partial fill upon patient request if the prescription is for a schedule II opioid drug., 176.8, cm, 04/30/23 7:39:0... Start Date: 05/19/23 Status: Ordered mupirocin 2% topical ointment See Instructions, APPLY TOPICALLY TO THE AFFECTED AREA THREE TIMES DAILY FOR 14 DAYS, # 22 Gm, 0 Refills, Maintenance, 03/27/23 8:33:00 EST, [facility] #[id number], 10, APPLY TOPICALLY TO THE AFFECTED AREA [...] 05/21/23 12:42:00 EST, Route to Pharmacy Electronically, [facility]... Start Date: 05/21/23 Stop Date: 06/05/23 Status: Ordered predniSONE 20 mg oral tablet See Instructions, 2 tablets By Mouth Daily for 5 days and then 1 tablet by mouth daily for 5 days, # 15 tablet, 0 Refills, Soft Stop, 01/08/23 16:53:00 EDT, Tablet, [facility] #[id number], Partial fill upon patient request if the prescription is... Start Date: 01/08/23 Status: Ordered Ventolin HFA 108 mcg/inh inhalation aerosol with adapter 2 puffs, Inhalation, Every 6 hours, # 8.5 Gm, 6 Refills, Maintenance, 12/23/22 11:39:00 EDT, [facility] #[id number], 176.8, cm, 12/23/22 11:25:00 EDT, Height, 127.4, [...] Primary Care Member Role: PCP Address: Address: [address] [place] [address] Name: Bhumika Castillo RN Position: [facility] SN RN Member Role: Primary Care Nurse Name: Jaja Arshad RN Position: S RN Member Role: Primary Care Nurse Name: Ludwin Butcher RN Position: [facility] RN Member Role: Primary Care Nurse Care Team Related Persons Name: GARRETT FUENTES Address: home [address] [place] [id number] Name: MARLO REINOSO Name: PT STS, NONE Name: EFFIE RICKETTS Name: RANDALL RICKETTS
--- OUTSIDE RECORDS SUMMARY | 2023-09-25 00:34 | XMS_ITS | Continuity of Care Document ---
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 Start Date: 03/24/23 Status: Ordered diclofenac sodium 75 mg oral delayed release tablet See Instructions, TAKE 1 TABLET BY MOUTH TWICE DAILY WITH FOOD DIRECTED, # 60 tablet, 1 Refills,03/11/23 16:29:00 EST, [facility] #[id number], 176.8, cm, 01/24/23 10:59:00 EDT, Height, 127.4, kg, 05/17/22 4:58:00 EST, Dry Weight Start Date: 03/11/23 Status: Ordered EpiPen 2-Michael 0.3 mg injectable kit = 0.3 mg, Intramuscular, Once, PRN severe allergic reaction, may repeat if necessary, # 2 each, 0 Refills, Soft Stop, 01/24/23 12:05:00 EDT, [facility] #[id number], 176.8, cm, 01/24/23 10:59:00 EDT, Height, 127.4, kg, 05/17/22 4:58:00 EST, Dry We... Start Date: 01/24/23 Status: Ordered hydrOXYzine hydrochloride 50 mg oral tablet 1 tablet = 50 mg, By Mouth, 3 times a day, # 90 tablet, 1 Refills, Maintenance, 02/12/23 8:08:00 EDT, [facility] #[id number], 176.8, cm, 01/24/23 10:59:00 EDT, Height, 127.4, kg, 05/17/22 4:58:00 EST, Dry Weight Start Date: 02/12/23 Status: Ordered losartan 50 mg oral tablet 1 tablet, By Mouth, Daily, # 90 tablet, 1 Refills, Maintenance, 11/28/22 21:33:00 EDT, [facility] #[id number], 176.8, cm, 11/05/22 11:22:00 EDT, Height, 127.4, kg, 05/17/22 4:58:00 EST, Dry Weight Start Date: 11/28/22 Status: Ordered mupirocin 2% topical ointment See Instructions, APPLY TOPICALLY TO THE AFFECTED AREA THREE TIMES DAILY FOR 14 DAYS, # 22 Gm, 0 Refills, Maintenance, 03/27/23 8:33:00 EST, [facility] #[id number], 10, APPLY TOPICALLY TO THE AFFECTED AREA THREE TIMES DAILY FOR 14 DAYS, 176.8, cm... Start Date: 03/27/23 Status: Ordered oxyCODONE 5 mg oral tablet 5 mg, 1, tablet, By Mouth, Every 8 hours, PRN, mass pat ok, ok for less. TAKE ONLY NEEDED, # 45 tablet, Refills 0, Tot. Refills 0, Maintenance, Pain , Moderate, 03/24/23 14:27:00 EST, Route to Pharmacy Electronically, [facility] #[id number], P... Start Date: 03/24/23 Stop Date: 04/08/23 Status: Ordered predniSONE 20 mg oral tablet See Instructions, 2 tablets By Mouth Daily for 5 days and then 1 tablet by mouth daily for 5 days, # 15 tablet, 0 Refills, Soft Stop, 01/08/23 16:53:00 EDT, Tablet, [facility] #[id number], Partial fill upon patient request if the prescription is... Start Date: 01/08/23 Status: Ordered Ventolin HFA 108 mcg/inh inhalation aerosol with adapter 2 puffs, Inhalation, Every 6 hours, # 8.5 Gm, 6 Refills, Maintenance, 12/23/22 11:39:00 EDT, [facility] #[id number], 176.8, cm, 12/23/22 11:25:00 EDT, Height, 127.4, [...] Primary Care Member Role: PCP Address: Address: [address] [place] [id number] Name: Bhumika Castillo RN Position: [facility] RN Member Role: Primary Care Nurse Name: Jaja Arshad RN Position: [facility] RN Member Role: Primary Care Nurse Name: Ludwin Butcher RN Position: [facility] RN Member Role: Primary Care Nurse Care Team Related Persons Name: GARRETT FUENTES Address: home [address] [place] [address] Name: MARLO REINOSO Name: PT STS, NONE Name: EFFIE RICKETTS Name: RANDALL RICKETTS
--- OUTSIDE RECORDS SUMMARY | 2023-09-25 00:34 | XMS_ITS | Continuity of Care Document ---
Author Organization [facility] Address [address] [place] [address]- Care Team Providers Care Fruit Grader Operator Name Role Phone Margarito Berger MD Primary Care Physician [place] [facility] [place]23 [facility] [address] [place] [address]- Allergies, Adverse Reactions, Alerts No Known Medication [...] tablet, 0 Refills, Maintenance, 05/28/23 8:20:00 EST, [facility] #[id number], 176.8, cm, 04/30/23 7:39:00 EST, Height, 127.4, kg, 05/17/22 4:58:00 EST, Dry Weight Start Date: 05/28/23 Stop Date: 06/07/23 Status: Ordered cyclobenzaprine 10 mg oral tablet 1, tablet, By Mouth, 3 times a day, PRN, # 60 tablet, Refills 0, Maintenance, NEEDED FOR SPASMS,06/30/23 15:04:00 EST, Route to Pharmacy Electronically, [facility] #[id number], 176.8, cm, 04/30/23 7:39:00 EST, Height, 127.4, kg, 05/17/22 4:58... Start Date: 06/30/23 Status: Ordered diclofenac sodium 75 mg oral delayed release tablet 1 tablet, By Mouth, 2 times a day with meals, DIRECTED., # 60 tablet, 5 Refills, Maintenance, 07/01/23 20:55:00 EST, [facility] #[id number], 176.8, cm, 04/30/23 7:39:00 EST, Height, 127.4, kg, 05/17/22 4:58:00 EST, Dry Weight Start Date: 07/01/23 Status: Ordered doxycycline hyclate 100 mg oral tablet 1 tablet, By Mouth, 2 times a day, # 28 tablet, 0 Refills, Maintenance, 05/28/23 8:20:00 EST, [facility] #[id number], 176.8, cm, 04/30/23 7:39:00 EST, Height, 127.4, kg, 05/17/22 4:58:00 EST, Dry Weight Start Date: 05/28/23 Stop Date: 06/11/23 Status: Ordered EpiPen 2-Michael 0.3 mg injectable kit = 0.3 mg, Intramuscular, Once, PRN severe allergic reaction, may repeat if necessary, # 2 each, 0 Refills, Soft Stop, 01/24/23 12:05:00 EDT, [facility] #[id number], 176.8, cm, 01/24/23 10:59:00 EDT, Height, 127.4, kg, 05/17/22 4:58:00 EST, Dry We... Start Date: 01/24/23 Status: Ordered hydrOXYzine hydrochloride 50 mg oral tablet 1 tablet = 50 mg, By Mouth, 3 times a day, PRN as needed for itching, # 90 tablet, 1 Refills, Maintenance, 06/18/23 13:07:00 EST, [facility] #[id number], 176.8, cm, 04/30/23 7:39:00 EST, Height,127.4, kg, 05/17/22 4:58:00 EST, Dry Weight Start Date: 06/18/23 Status: Ordered hydrOXYzine hydrochloride 50 mg oral tablet 1 tablet = 50 mg, By Mouth, 3 times a day, # 90 tablet, 1 Refills, Maintenance, 04/25/23 11:23:00 EST, [facility] #[id number], 176.8, cm, 01/24/23 10:59:00 EDT, Height, 127.4, kg, 05/17/22 4:58:00 EST, Dry Weight Start Date: 04/25/23 Status: Ordered losartan 50 mg oral tablet 1 tablet, By Mouth, Daily, # 90 tablet, 1 Refills, Maintenance, 06/05/23 18:32:00 EST, [facility] #[id number], 176.8, cm, 04/30/23 7:39:00 EST, Height, 127.4, kg, 05/17/22 4:58:00 EST, Dry Weight Start Date: 06/05/23 Status: Ordered metFORMIN 750 mg oral tablet, extended release 1 tablet = 750 mg, By Mouth, Daily, # 90 tablet, 1 Refills, Maintenance, 05/19/23 11:12:00 EST, ER Tablet, [facility] #[id number], Partial fill upon patient request if the prescription is for a schedule II opioid drug., 176.8, cm, 04/30/23 7:39:0... Start Date: 05/19/23 Status: Ordered mupirocin 2% topical ointment See Instructions, APPLY TOPICALLY TO THE AFFECTED AREA THREE TIMES DAILY FOR 14 DAYS, # 22 Gm, 0 Refills, Maintenance, 06/03/23 13:22:00 EST, [facility] #[id number], APPLY TOPICALLY TO THE AFFECTED AREA THREE [...] 06/23/23 7:57:00 EST, Route to Pharmacy Electronically, [email or web address]... Start Date: 06/23/23 Stop Date: 07/08/23 Status: Ordered predniSONE 20 mg oral tablet See Instructions, 2 tablets By Mouth Daily for 5 days and then 1 tablet by mouth daily for 5 days, # 15 tablet, 0 Refills, Soft Stop, 01/08/23 16:53:00 EDT, Tablet, [email or web address] #[id number], Partial fill upon patient request if the prescription is... Start Date: 01/08/23 Status: Ordered triamcinolone 0.025% topical ointment 1 application, Topically, 3 times a day, Apply to affected area, # 15 Gm, 1 Refills, Maintenance, 06/03/23 9:33:00 EST, Ointment, [email or web address] #[id number], Partial fill upon patient request if theprescription is for a schedule II opioid drug., 1 a... Start Date: 06/03/23 Status: Ordered Ventolin HFA 108 mcg/inh inhalation aerosol with adapter 2 puffs, Inhalation, Every 6 hours, # 18 Gm, 5 Refills, Maintenance, 05/25/23 6:11:00 EST, [facility] #[id number], 176.8, cm, 04/30/23 7:39:00 EST, Height, 127.4, [...] Primary Care Member Role: PCP Address: Address: [address] [place] [id number] Name: Bhumika Castillo RN Position: [facility] RN Member Role: Primary Care Nurse Name: Jaja Arshad RN Position: S RN Member Role: Primary Care Nurse Name: Ludwin Butcher RN Position: S RN Member Role: Primary Care Nurse Care Team Related Persons Name: GARRETT FUENTES Address: home [address] [place] [address] Name: MARLO REINOSO Name: PT STS, NONE Name: EFFIE RICKETTS Name: RANDALL RICKETTS
--- OUTSIDE RECORDS SUMMARY | 2023-09-25 00:34 | XMS_ITS | Continuity of Care Document ---
Author Organization [facility] Address [address] [place] [address]- Care Team Providers Care Vacuum Extractor Operator Name Role Phone Ab FRAGA, Margarito Dolan Primary Care Physician Encounter [facility] [place] Date(s): 10/12/21 - 10/19/21 [facility] [address] [place] [address]- Encounter Diagnosis SKIP - Obstructive sleep apnea(Discharge Diagnosis) - 10/12/21 Obese class II(Discharge Diagnosis) - 10/12/21 Attending Physician: Eva Capellan MD Admitting Physician: Eva Capellan MD Referring Physician: Margarito Berger MD Allergies, [...] 0 Refills, Soft Stop, 11/06/20 13:52:00 EDT, [facility] #[id number], 176.8, cm, 11/06/20 13:38:00 EDT, Height, 140.3, kg, 11/06/20 13:38:00 EDT, Dry W... Start Date: 11/06/20 Status: Ordered hydrOXYzine hydrochloride 50 mg oral tablet 1 tablet, By Mouth, 4 times a day, PRN NEEDED FOR ANXIETY, for 12 days, # 48 tablet, 0 Refills, Physician Stop, [facility] #[id number], 176.8, cm, 10/12/21 15:16:00 EDT, Height, 123.4, kg, 10/12/21 15:16:00 EDT, Dry Weight Start Date: 10/16/21 Stop Date: 10/28/21 Status: Ordered ibuprofen 800 mg oral tablet 1, tablet, By Mouth, 3 times a day, PRN, TAKE WITH FOOD OR MILK, # 90 tablet, Refills 0, NEEDED FOR PAIN, Route to Pharmacy Electronically, [facility] #[id number], 176.8, cm, 06/21/21 15:26:00 EST, Height, 140.3, kg, 11/06/20 13:38:00 EDT, Dry... Start Date: 07/23/21 Status: Ordered ibuprofen 800 mg oral tablet 1, tablet, By Mouth, 3 times a day, PRN, TAKE WITH FOOD OR MILK, # 90 tablet, Refills 0, Tot. Refills 0, Maintenance, NEEDED FOR PAIN, 08/27/21 15:32:00 EDT, Route to Pharmacy Electronically, [facility] #[id number], 176.8, cm, 08/06/21 15:06:0... Start Date: 08/27/21 [...] 02/26/21 14:39:00 EDT, Route to Pharmacy Electronically, [facility] #[id number], Partial fill upon patientrequest if the prescription is for a schedule II op... Start Date: 02/26/21 Stop Date: 05/27/21 Status: Ordered losartan 50 mg oral tablet 1 tablet, By Mouth, Daily, # 30 tablet, 0 Refills, [facility] #[id number], 176.8, cm, 10/12/2214:16:00 EDT, Height, 123.4, kg, 10/12/21 15:16:00 EDT, Dry Weight Start Date: 10/16/21 Status: Ordered magnesium oxide 250 mg oral tablet 1 tablet = 250 mg, By Mouth, Daily at bedtime, for 14 days, # 14 tablet, 0 Refills, Acute 10/22/21 15:24:00 EDT, 10/08/21 15:24:00 EDT, Tablet, [facility] #[id number], Partial fill upon patient request if the prescription is for a schedule II opi... Start Date: 10/08/21 Stop Date: 10/22/21 Status: Ordered metFORMIN 750 mg oral tablet, extended release 1 tablet, By Mouth, Daily, # 60 tablet, 5 Refills, [facility] #[id number], 176.8, cm, 02/02/2116:07:00 EDT, Height, 140.3, kg, 11/06/20 13:38:00 EDT, Dry Weight Start Date: 03/30/21 Status: Ordered oxyCODONE 5 mg oral tablet 5 mg, 1, tablet, By Mouth, Every 8 hours, PRN, mass pat ok, ok for less. Take only as needed., # 45tablet, Refills 0, Tot. Refills 0, Maintenance, Pain , Moderate, 10/15/21 14:43:00 EDT, Route to Pharmacy Electronically, [facility] #[id number],... Start Date: 10/15/21 Stop Date: 10/30/21 Status: Ordered oxyCODONE 5 mg oral tablet 5 mg, 1, tablet, By Mouth, Every 8 hours, PRN, mass pat ok, ok for less. Take only as needed., # 45tablet, Refills 0, Tot. Refills 0, Maintenance, Pain , Moderate, 09/28/21 17:08:00 EDT, Route to Pharmacy Electronically, [facility] #[id number],... Start Date: 09/28/21 Stop Date: 10/13/21 Status: [...] Gm, Refills 5, Route to Pharmacy Electronically, [id number], [facility] #[id number], 176.8, cm, 05/18/21 14:17:00 EST, Height, 140.3, kg, 11/06/20 13:38:00 EDT, Dry Weight Start Date: 06/13/21 Status: Ordered triamcinolone 0.1% topical cream See Instructions, APPLY TOPICALLY TO THE AFFECTED AREA ON ARMS AND LEGS THREE TIMES DAILY. MIX WITH16 OUNCES OF EUCERIN CREAM, # 80 Gm, 0 Refills, [facility] #[id number], 14, APPLY TOPICALLY TOTHE AFFECTED AREA ON ARMS AND LEGS THREE TIMES RAMESH... Start Date: 05/18/21 Status: Ordered Problem List Condition Effective Dates Status Health Status Inform ant Adjustment disorder(Confirmed) Active Chronic knee pain(Confirmed) Active Chronic low back pain(Confirmed) Active Leg cramping(Confirmed) Active Daytime sleepiness(Confirmed) Active Hypertension(Confirmed) Active Morbid obesity(Confirmed) Active Obese class II(Confirmed) Active SKIP - Obstructive sleep apnea(Confirmed) Active Prediabetes(Confirmed) Active Diagnosis Diagnosis Type Effective Dates Health Status Clinical Service Informant SKIP - Obstructive sleep apnea Discharge Diagnosis 10/12/21 Obese class II Discharge Diagnosis 10/12/21 Vital Signs Most recent to oldest [Reference Range]: 1 Height 176.8 cm (10/12/21 3:16 PM) Weight 123.4 kg (10/12/21 3:16 PM) Body Mass Index [18.5-24.99] 39.48 *>HHI* (10/12/21 3:16 PM) Dry Weight 123.4 kg (10/12/21 3:16 PM) Weight Obtained Via Patient/family state d (10/12/21 3:16 PM) Dry Weight Obtained Via Patient/family s tated (10/12/21 3:16 PM) Social History Social History Type Response Smoking Status 5-9 cigarettes (betw een 1/4 to 1/2 pack)/day in last 30 days; Tobacco use times per day: 7; entered on: 12/31/18 Sex
--- OUTSIDE RECORDS SUMMARY | 2023-09-25 00:34 | XMS_ITS | Continuity of Care Document ---
Author Organization [facility] Address [address] [place] [address]- Care Team Providers Care Protective Officer Name Role Phone Ab FRAGA, Margarito Dolan Primary Care Physician [place] [facility] [place]): 07/09/21 - 08/08/21 [facility] [address] [place] [address]- Allergies, Adverse Reactions, Alerts No Known Medication [...] 0 Refills, Soft Stop, 11/06/20 13:52:00 EDT, [facility] #[id number], 176.8, cm, 11/06/20 13:38:00 EDT, Height, 140.3, kg, 11/06/20 13:38:00 EDT, Dry W... Start Date: 11/06/20 Status: Ordered ibuprofen 800 mg oral tablet 1, tablet, By Mouth, 3 times a day, PRN, TAKE WITH FOOD OR MILK, # 90 tablet, Refills 0, NEEDED FOR PAIN, Route to Pharmacy Electronically, [facility] #[id number], 176.8, cm, 06/21/21 15:26:00 EST, Height, 140.3, [...] 02/26/21 14:39:00 EDT, Route to Pharmacy Electronically, [facility] #[id number], Partial fill upon patientrequest if the prescription is for a schedule II op... Start Date: 02/26/21 Stop Date: 05/27/21 Status: Ordered losartan 50 mg oral tablet 1 tablet = 50 mg, By Mouth, Daily, for 30 days, # 30 tablet, 5 Refills, Physician Stop 10/13/21 14:50:00 EDT, 04/16/21 14:50:00 EST, [facility] #[id number], 176.8, cm, 02/01/21 16:07:00 EDT, Height, 140.3, kg, 11/06/20 13:38:00 EDT, Dry Weight Start Date: 04/16/21 Stop Date: 10/13/21 Status: Ordered magnesium oxide 250 mg oral tablet 1 tablet = 250 mg, By Mouth, Daily at bedtime, for 14 days, # 14 tablet, 0 Refills, Acute 08/20/21 15:31:00 EDT, 08/06/21 15:31:00 EDT, Tablet, [facility] #[id number], Partial fill upon patient request if the prescription is for a schedule II opi... Start Date: 08/06/21 Stop Date: 08/20/21 Status: Ordered metFORMIN 750 mg oral tablet, extended release 1 tablet, By Mouth, Daily, # 60 tablet, 5 Refills, [facility] #[id number], 176.8, cm, 02/02/2116:07:00 EDT, Height, 140.3, kg, 11/06/20 13:38:00 EDT, Dry Weight Start Date: 03/30/21 Status: Ordered oxyCODONE 5 mg oral tablet 5 mg, 1, tablet, By Mouth, Every 8 hours, PRN, Take only as needed, # 45 tablet, Refills 0, Tot. Refills 0, Maintenance, Pain , Moderate, 08/02/21 17:20:00 EDT, Route to Pharmacy Electronically, [facility] #[id number], Partial fill upon patient r... Start Date: [...] a schedule II opioid dr... Start Date: 07/24/21 Stop Date: 08/23/21 Status: Ordered ProAir HFA 90 mcg/inh inhalation aerosol with adapter 2, puffs, Inhalation, Every 6 hours, PRN, # 8.5 Gm, Refills 5, Route to Pharmacy Electronically, [id number], [facility] #[id number], 176.8, cm, 05/18/21 14:17:00 EST, Height, 140.3, kg, 11/06/20 13:38:00 EDT, Dry Weight Start Date: 06/13/21 Status: Ordered triamcinolone 0.1% topical cream See Instructions, APPLY TOPICALLY TO THE AFFECTED AREA ON ARMS AND LEGS THREE TIMES DAILY. MIX WITH16 OUNCES OF EUCERIN CREAM, # 80 Gm, 0 Refills, [facility] #[id number], 14, APPLY TOPICALLY TOTHE AFFECTED AREA ON [...]
--- OUTSIDE RECORDS SUMMARY | 2023-09-25 00:34 | XMS_ITS | Continuity of Care Document ---
Author Organization [facility] Address [address] [place] [address]- Care Team Providers Care Child Center Assistant Name Role Phone Margarito Berger MD Primary Care Physician Encounter [facility] [place] Date(s): 11/30/21 - 12/30/21 [facility] [address] [place] [address]- Allergies, Adverse Reactions, Alerts No Known Medication [...] 12/14/21 16:38:00 EDT, Route to Pharmacy Electronically, [facility] #[id number], Partial fill upon patient reque... Start Date: 12/14/21 Stop Date: 01/04/22 Status: Ordered EpiPen 2-Michael 0.3 mg injectable kit = 0.3 mg, Intramuscular, Once, PRN severe allergic reaction, may repeat if necessary, # 2 each, 0 Refills, Soft Stop, 11/06/20 13:52:00 EDT, [facility] #[id number], 176.8, cm, 11/06/20 13:38:00 EDT, Height, 140.3, kg, 11/06/20 13:38:00 EDT, Dry W... Start Date: 11/06/20 Status: Ordered ibuprofen 800 mg oral tablet 1, tablet, By Mouth, 3 times a day, PRN, TAKE WITH FOOD OR MILK., # 90 tablet, Refills 1, NEEDEDFOR PAIN(, Route to Pharmacy Electronically, [facility] #[id number], 176.8, cm, 11/05/21 15:43:00 EDT, Height, 123.4, [...] Mouth, Daily, # 30 tablet, 5 Refills, [facility] #[id number], 176.8, cm, 11/05/2214:43:00 EDT, Height, 123.4, kg, 10/12/21 15:16:00 EDT, Dry Weight Start Date: 11/13/21 Status: Ordered metFORMIN 750 mg oral tablet, extended release 1 tablet, By Mouth, Daily, # 60 tablet, 5 Refills, [facility] #[id number], 176.8, cm, 02/02/2116:07:00 EDT, Height, 140.3, kg, [...] 09/28/21 17:08:00 EDT, Route to Pharmacy Electronically, [facility] #[id number],... Start Date: 09/28/21 Stop Date: 10/13/21 Status: Ordered oxyCODONE 5 mg oral tablet 5 mg, 1, tablet, By Mouth, Every 8 hours, PRN, mass pat ok, ok for less. Take only as needed., # 45tablet, Refills 0, Tot. Refills 0, Maintenance, Pain , Moderate, 12/28/21 12:33:00 EDT, Route to Pharmacy Electronically, [facility] #[id number],... Start Date: 12/28/21 Stop Date: 01/27/22 Status: [...] 01/02/22 16:47:00 EDT, 12/03/21 16:47:00 EDT, Capsule, [facility] #[id number], Partial fill upon patient request if the prescription is for a schedule II opioid... Start Date: 12/03/21 Stop Date: 01/02/22 Status: Ordered ProAir HFA 90 mcg/inh inhalation aerosol with adapter 2, puffs, Inhalation, Every 6 hours, PRN, # 8.5 Gm, Refills 5, Route to Pharmacy Electronically, [id number], [facility] #[id number], 176.8, cm, 10/12/21 15:16:00 EDT, Height, 123.4, kg, 10/12/21 15:16:00 EDT, Dry Weight Start Date: 11/05/21 Status: Ordered triamcinolone 0.1% topical cream See Instructions, APPLY TOPICALLY TO THE AFFECTED AREA ON ARMS AND LEGS THREE TIMES DAILY. MIX WITH16 OUNCES OF EUCERIN CREAM, # 80 Gm, 0 Refills, [facility] #[id number], 14, APPLY TOPICALLY TOTHE AFFECTED AREA ON [...] Team Personnel Name: Margarito Berger MD Address: [address] [place] [address]
--- OUTSIDE RECORDS SUMMARY | 2023-09-25 00:34 | XMS_ITS | Continuity of Care Document ---
Author Organization [facility] Address [address] [place] [address]- Care Team Providers Care Doweler Name Role Phone Margarito Berger MD Primary Care Physician [place] [facility]): 12/14/21 - 12/21/21 [facility] [address] [place] [address]- Encounter Diagnosis Contusion(Discharge Diagnosis) - 12/14/21 Attending Physician: Margarito Berger MD Allergies, Adverse [...] 12/14/21 16:38:00 EDT, Route to Pharmacy Electronically, [facility] #[id number], Partial fill upon patient reque... Start Date: 12/14/21 Stop Date: 01/04/22 Status: Ordered EpiPen 2-Michael 0.3 mg injectable kit = 0.3 mg, Intramuscular, Once, PRN severe allergic reaction, may repeat if necessary, # 2 each, 0 Refills, Soft Stop, 11/06/20 13:52:00 EDT, [facility] #[id number], 176.8, cm, 11/06/20 13:38:00 EDT, Height, 140.3, kg, 11/06/20 13:38:00 EDT, Dry W... Start Date: 11/06/20 Status: Ordered ibuprofen 800 mg oral tablet 1, tablet, By Mouth, 3 times a day, PRN, TAKE WITH FOOD OR MILK., # 90 tablet, Refills 1, NEEDEDFOR PAIN(, Route to Pharmacy Electronically, [facility] #[id number], 176.8, cm, 11/05/21 15:43:00 EDT, Height, 123.4, [...] Mouth, Daily, # 30 tablet, 5 Refills, [facility] #[id number], 176.8, cm, 11/05/2214:43:00 EDT, Height, 123.4, kg, 10/12/21 15:16:00 EDT, Dry Weight Start Date: 11/13/21 Status: Ordered magnesium oxide 250 mg oral tablet 1 tablet = 250 mg, By Mouth, Daily at bedtime, for 14 days, # 14 tablet, 1 Refills, Acute 12/28/21 10:35:00 EDT, 11/30/21 10:35:00 EDT, Tablet, [facility] #[id number], Partial fill upon patient request if the prescription is for a schedule II opi... Start Date: 11/30/21 Stop Date: 12/28/21 Status: Ordered metFORMIN 750 mg oral tablet, extended release 1 tablet, By Mouth, Daily, # 60 tablet, 5 Refills, [facility] #[id number], 176.8, cm, 02/02/2116:07:00 EDT, Height, 140.3, kg, 11/06/20 13:38:00 EDT, Dry Weight Start Date: 03/30/21 Status: Ordered oxyCODONE 5 mg oral tablet 5 mg, 1, tablet, By Mouth, Every 8 hours, PRN, mass pat ok, ok for less. Take only as needed., # 45tablet, Refills 0, Tot. Refills 0, Maintenance, Pain , Moderate, 12/14/21 16:47:00 EDT, Route to Pharmacy Electronically, [facility] #[id number],... Start Date: 12/14/21 Stop Date: 01/13/22 Status: Ordered oxyCODONE 5 mg oral tablet 5 mg, 1, tablet, By Mouth, Every 8 hours, PRN, mass pat ok, ok for less. Take only as needed., # 45tablet, Refills 0, Tot. Refills 0, Maintenance, Pain , Moderate, 09/28/21 17:08:00 EDT, Route to Pharmacy Electronically, [facility] #[id number],... Start Date: 09/28/21 Stop Date: 10/13/21 Status: Ordered phentermine 30 mg oral capsule 1 capsule = 30 mg, By Mouth, Daily in AM, for 30 days, # 30 capsule, 0 Refills, Acute 01/05/22 12:24:00 EDT, 12/06/21 12:24:00 EDT, Capsule, [facility] #[id number], Partial fill upon patient request if the prescription is for a schedule II opioid dr... Start Date: 12/06/21 Stop Date: 01/05/22 Status: Ordered phentermine 30 mg oral capsule 1 capsule = 30 mg, By Mouth, Daily in AM, for 30 days, # 30 capsule, 0 Refills, Acute 01/02/22 16:47:00 EDT, 12/03/21 16:47:00 EDT, Capsule, [facility] #[id number], Partial fill upon patient request if the prescription is for a schedule II opioid... Start Date: 12/03/21 Stop Date: 01/02/22 Status: Ordered ProAir HFA 90 mcg/inh inhalation aerosol with adapter 2, puffs, Inhalation, Every 6 hours, PRN, # 8.5 Gm, Refills 5, Route to Pharmacy Electronically, [id number], [facility] #[id number], 176.8, cm, 10/12/21 15:16:00 EDT, Height, 123.4, kg, 10/12/21 15:16:00 EDT, Dry Weight Start Date: 11/05/21 Status: Ordered triamcinolone 0.1% topical cream See Instructions, APPLY TOPICALLY TO THE AFFECTED AREA ON ARMS AND LEGS THREE TIMES DAILY. MIX WITH16 OUNCES OF EUCERIN CREAM, # 80 Gm, 0 Refills, [facility] #[id number], 14, APPLY TOPICALLY TOTHE AFFECTED AREA ON [...] Dates Health Status Clini сергей Service Informant Contusion Discharge Diagnosis 12/14/21 Vital Signs Most recent to oldest [Reference Range]: 1 Height 176.8 cm (12/14/21 4:29 PM) Oxygen Saturation [94-100 %] 98 % (12/14/21 4:29 PM) Pulse Rate [55-90 bpm] 111 bpm *H* (12/14/21 4:29 PM) Blood Pressure [90-138/55-84 mm Hg] 137/ 94mm Hg (12/14/21 4:29 PM) Mode of Delivery (Oxygen) Room air (12/14/21 4:29 PM) Blood pressure sites Arm, right (12/14/21 4:29 PM) Social History Social History Type Response Smoking Status 5-9 cigarettes (betw een 1/4 to 1/2 pack)/day in last 30 days; Tobacco use times per day: 7; entered on: 12/31/18 Sex Care Team Personnel Name: Ab FRAGA, Margarito Dolan Address: [address] [place] [id number]
--- OUTSIDE RECORDS SUMMARY | 2023-09-25 00:34 | XMS_ITS | Continuity of Care Document ---
Author Organization [facility] Address [address] [address]- Care Team Providers Care Supervisor Lathing Name Role Phone Margarito Berger MD Primary Care Physician Encounter [facility] R [id number] Date(s): 05/08/23 - 06/07/23 [facility] [address] [address]- Attending Physician: Admtr, Lona Admitting Physician: Admtr, [...] tablet, 0 Refills, Maintenance, 05/28/23 8:20:00 EST, [facility] #[id number], 176.8, cm, 04/30/23 7:39:00 EST, Height, 127.4, kg, 05/17/22 4:58:00 EST, Dry Weight Start Date: 05/28/23 Stop Date: 06/07/23 Status: Ordered cyclobenzaprine 10 mg oral tablet 1, tablet, By Mouth, 3 times a day, PRN, # 60 tablet, Refills 1, Maintenance, NEEDED FOR SPASMS,05/28/23 8:20:00 EST, Route to Pharmacy Electronically, [facility] #[id number], 176.8, cm, 04/30/23 7:39:00 EST, Height, 127.4, kg, 05/17/22 4:58:... Start Date: 05/28/23 Status: Ordered diclofenac sodium 75 mg oral delayed release tablet 1 tablet, By Mouth, 2 times a day with meals, DIRECTED., # 60 tablet, 1 Refills, Maintenance, 05/04/23 6:22:00 EST, [facility] #[id number], 176.8, cm, 04/30/23 7:39:00 EST, Height, 127.4, kg,05/17/22 4:58:00 EST, Dry Weight Start Date: 05/04/23 Status: Ordered doxycycline hyclate 100 mg oral tablet 1 tablet, By Mouth, 2 times a day, # 28 tablet, 0 Refills, Maintenance, 05/28/23 8:20:00 EST, [facility] #[id number], 176.8, cm, 04/30/23 7:39:00 EST, Height, 127.4, kg, 05/17/22 4:58:00 EST, Dry Weight Start Date: 05/28/23 Stop Date: 06/11/23 Status: Ordered EpiPen 2-Michael 0.3 mg injectable kit = 0.3 mg, Intramuscular, Once, PRN severe allergic reaction, may repeat if necessary, # 2 each, 0 Refills, Soft Stop, 01/24/23 12:05:00 EDT, [facility] #[id number], 176.8, cm, 01/24/23 10:59:00 EDT, Height, 127.4, kg, 05/17/22 4:58:00 EST, Dry We... Start Date: 01/24/23 Status: Ordered hydrOXYzine hydrochloride 50 mg oral tablet 1 tablet = 50 mg, By Mouth, 3 times a day, # 90 tablet, 1 Refills, Maintenance, 04/25/23 11:23:00 EST, [facility] #[id number], 176.8, cm, 01/24/23 10:59:00 EDT, Height, 127.4, kg, 05/17/22 4:58:00 EST, Dry Weight Start Date: 04/25/23 Status: Ordered hydrOXYzine hydrochloride 50 mg oral tablet See Instructions, TAKE 1 TABLET BY MOUTH THREE TIMES DAILY, # 90 tablet, 0 Refills, Maintenance, 04/25/23 14:10:00 EST, [facility] #[id number], 176.8, cm, 01/24/23 10:59:00 EDT, Height, 127.4, kg, 05/17/22 4:58:00 EST, Dry Weight Start Date: 04/25/23 Status: Ordered losartan 50 mg oral tablet 1 tablet, By Mouth, Daily, # 90 tablet, 1 Refills, Maintenance, 06/05/23 18:32:00 EST, [facility] #57403, 176.8, cm, 04/30/23 7:39:00 EST, Height, 127.4, kg, 05/17/22 4:58:00 EST, Dry Weight Start Date: 06/05/23 Status: Ordered metFORMIN 750 mg oral tablet, extended release 1 tablet = 750 mg, By Mouth, Daily, # 90 tablet, 1 Refills, Maintenance, 05/19/23 11:12:00 EST, ER Tablet, [facility] #[id number], Partial fill upon patient request if the prescription is for a schedule II opioid drug., 176.8, cm, 04/30/23 7:39:0... Start Date: 05/19/23 Status: Ordered mupirocin 2% topical ointment See Instructions, APPLY TOPICALLY TO THE AFFECTED AREA THREE TIMES DAILY FOR 14 DAYS, # 22 Gm, 0 Refills, Maintenance, 06/03/23 13:22:00 EST, [facility] #[id number], APPLY TOPICALLY TO THE AFFECTED AREA THREE [...] 06/03/23 13:22:00 EST, Route to Pharmacy Electronically, [facility] Start Date: 06/03/23 Stop Date: 06/18/23 Status: Ordered predniSONE 20 mg oral tablet See Instructions, 2 tablets By Mouth Daily for 5 days and then 1 tablet by mouth daily for 5 days, # 15 tablet, 0 Refills, Soft Stop, 01/08/23 16:53:00 EDT, Tablet, [facility] #[id number], Partial fill upon patient request if the prescription is... Start Date: 01/08/23 Status: Ordered triamcinolone 0.025% topical ointment 1 application, Topically, 3 times a day, Apply to affected area, # 15 Gm, 1 Refills, Maintenance, 06/03/23 9:33:00 EST, Ointment, [facility] #[id number], Partial fill upon patient request if theprescription is for a schedule II opioid drug., 1 a... Start Date: 06/03/23 Status: Ordered Ventolin HFA 108 mcg/inh inhalation aerosol with adapter 2 puffs, Inhalation, Every 6 hours, # 18 Gm, 5 Refills, Maintenance, 05/25/23 6:11:00 EST, [facility] #[id number], 176.8, cm, 04/30/23 7:39:00 EST, Height, 127.4, [...] Berger MD Position: [facility] Physician - Primary Care Member Role: PCP Address: Address: [address] [place] [id number] Name: Bhumika Castillo RN Position: [facility] RN Member Role: Primary Care Nurse Name: Jaja Arshad RN Position: S RN Member Role: Primary Care Nurse Name: Ludwin Butcher RN Position: S RN Member Role: Primary Care Nurse Care Team Related Persons Name: GARRETT FUENTES Address: home [address] [place] [address] Name: MARLO REINOSO Name: PT STS, NONE Name: EFFIE RICKETTS Name: RANDALL RICKETTS
--- OUTSIDE RECORDS SUMMARY | 2023-09-25 00:34 | XMS_ITS | Continuity of Care Document ---
Author Organization [facility] Address [address] [place] [address]- Care Team Providers Care Foundation Relations Director Name Role Phone Margarito Berger MD Primary Care Physician Encounter [facility] Date(s): 10/11/22 - 11/10/22 [facility] [address] [place] [address]- Attending Physician: Lona Post Admitting Physician: AdmLona [...] 11/11/22 16:30:00 EDT, 11/01/22 16:30:00 EDT, Tablet, [facility] #[id number], Partial fill upon patient request if the [...] 10/21/22 15:31:00 EDT, Route to Pharmacy Electronically, [facility] #[id number], Partial fill upon patient request if the prescription is... Start Date: 10/21/22 Status: Ordered EpiPen 2-Michael 0.3 mg injectable kit = 0.3 mg, Intramuscular, Once, PRN severe allergic reaction, may repeat if necessary, # 2 each, 0 Refills, Soft Stop, 11/06/20 13:52:00 EDT, [facility] #[id number], 176.8, cm, 11/06/20 13:38:00 EDT, Height, 140.3, kg, 11/06/20 13:38:00 EDT, Dry W... Start Date: 11/06/20 Status: Ordered hydrOXYzine hydrochloride 50 mg oral tablet 1 tablet = 50 mg, By Mouth, 3 times a day, # 60 tablet, 1 Refills, Maintenance, 10/21/22 15:31:00 EDT, [facility] #[id number], 176.8, cm, 10/11/22 16:37:00 EDT, Height, 127.4, kg, 05/17/22 4:58:00 EST, Dry Weight Start Date: 10/21/22 Status: Ordered ibuprofen 800 mg oral tablet 1, tablet, By Mouth, 3 times a day, PRN, TAKE WITH FOOD OR MILK., # 90 tablet, Refills 5, Tot. Refills 5, Maintenance, NEEDED FOR PAIN(, 08/27/22 20:18:00 EDT, Route to Pharmacy Electronically, [facility] #[id number], 176.8, cm, 05/01/22 13:41... Start Date: 08/27/22 Status: Ordered losartan 50 mg oral tablet 1 tablet, By Mouth, Daily, # 90 tablet, 1 Refills, Maintenance, 06/03/22 11:27:00 EST, [facility] #[id number], 176.8, cm, 05/01/22 13:41:00 EST, Height, 127.4, kg, 05/17/22 4:58:00 EST, Dry Weight Start Date: 06/03/22 Stop Date: 11/30/22 Status: Ordered mupirocin 2% topical ointment 1 application, Topically, 3 times a day, for 14 days, # 22 Gm, 0 Refills, Acute 11/15/22 16:29:00 EDT, 11/01/22 16:29:00 EDT, Ointment, [facility] #[id number], Partial fill upon patient request if the [...] 11/04/22 16:00:00 EDT, Route to Pharmacy Electronically, [facility] #[id number], P... Start Date: 11/04/22 Stop Date: 11/19/22 Status: Ordered ProAir HFA 90 mcg/inh inhalation aerosol with adapter 2, puffs, Inhalation, Every 6 hours, PRN, # 8.5 Gm, Refills 5, Tot. Refills 5, 04/09/22 15:33:00 EST, Route to Pharmacy Electronically, [id number], [facility] #[id number], 176.8, cm, 02/28/22 10:47:00 EDT, Height, 123.4,... [...] Event Display: Cardiovascular Results Scanned Authored Date: [id number] Laboratory * Jorge Luis FRAGA, Tra D: REVIEW Event Display: Laboratory Result Scanned Authored Date: * Event Display: Laboratory Result Scanned Authored Date: * Event Display: Laboratory Result Scanned Authored Date: Radiology * Lina Ku: PERFORM Event Display: Radiology Results Scanned Authored Date: [id number] * Lina Ku: PERFORM Event Display: Radiology Results Scanned Authored Date: [id number] Patient Care team information Care Team Personnel Name: Margarito Berger MD Position: [facility] Physician - Primary Care Member Role: PCP Address: Address: [address] [place] [id number] Name: Bhumika Castillo RN Position: [facility] SN RN Member Role: Primary Care Nurse Name: Jaja Arshad RN Position: S RN Member Role: Primary Care Nurse Name: Ludwin uBtcher RN Position: [facility] RN Member Role: Primary Care Nurse Care Team Related Persons Name: GARRETT FUENTES Address: home [address] [place] [address] Name: MARLO REINOSO Name: PT STS, NONE Name: EFFIE RICKETTS Name: RANDALL RICKETTS
--- OUTSIDE RECORDS SUMMARY | 2023-09-25 00:34 | XMS_ITS | Continuity of Care Document ---
Author Organization [facility] Address [address] [place] [address]- Care Team Providers Care Heavy Duty Mechanic Name Role Phone Ab FRAGA, Margarito Dolan Primary Care Physician Encounter [facility] Date(s): 08/07/23 - 09/06/23 [facility] [address] [place] [address]- Allergies, Adverse Reactions, Alerts No Known Medication [...] tablet, 0 Refills, Maintenance, 05/28/23 8:20:00 EST, [facility] #[id number], 176.8, cm, 04/30/23 7:39:00 EST, Height, 127.4, kg, 05/17/22 4:58:00 EST, Dry Weight Start Date: 05/28/23 Stop Date: 06/07/23 Status: Ordered cyclobenzaprine 10 mg oral tablet 1, tablet, By Mouth, 3 times a day, PRN, # 60 tablet, Refills 0, Maintenance, NEEDED FOR SPASMS,08/18/23 12:16:00 EDT, Route to Pharmacy Electronically, [facility] #32204, 176.8, cm, 04/30/23 7:39:00 EST, Height, 127.4, kg, 05/17/22 4:58... Start Date: 08/18/23 Status: Ordered diclofenac sodium 75 mg oral delayed release tablet 1 tablet, By Mouth, 2 times a day with meals, DIRECTED., # 60 tablet, 5 Refills, Maintenance, 07/01/23 20:55:00 EST, [id number], 176.8, cm, 04/30/23 7:39:00 EST, Height, 127.4, kg, 05/17/22 4:58:00 EST, Dry Weight Start Date: 07/01/23 Status: Ordered doxycycline hyclate 100 mg oral tablet 1 tablet, By Mouth, 2 times a day, # 28 tablet, 0 Refills, Maintenance, 07/16/23 17:07:00 EDT, [facility] #[id number], 176.8, cm, 04/30/23 7:39:00 EST, Height, 127.4, kg, 05/17/22 4:58:00 EST, Dry Weight Start Date: 07/16/23 Stop Date: 07/30/23 Status: Ordered EpiPen 2-Michael 0.3 mg injectable kit = 0.3 mg, Intramuscular, Once, PRN severe allergic reaction, may repeat if necessary, # 2 each, 0 Refills, Soft Stop, 01/24/23 12:05:00 EDT, [facility], 176.8, cm, 01/24/23 10:59:00 EDT, Height, 127.4, kg, 05/17/22 4:58:00 EST, Dry We... Start Date: 01/24/23 Status: Ordered hydrOXYzine hydrochloride 50 mg oral tablet 1 tablet = 50 mg, By Mouth, 3 times a day, PRN as needed for itching, # 90 tablet, 1 Refills, Maintenance, 06/18/23 13:07:00 EST, [facility] #[id number], 176.8, cm, 04/30/23 7:39:00 EST, Height,127.4, kg, 05/17/22 4:58:00 EST, Dry Weight Start Date: 06/18/23 Status: Ordered hydrOXYzine hydrochloride 50 mg oral tablet 1 tablet = 50 mg, By Mouth, 3 times a day, # 90 tablet, 1 Refills, Maintenance, 04/25/23 11:23:00 EST, [facility] #45776, 176.8, cm, 01/24/23 10:59:00 EDT, Height, 127.4, kg, 05/17/22 4:58:00 EST, Dry Weight Start Date: 04/25/23 Status: Ordered losartan 50 mg oral tablet 1 tablet, By Mouth, Daily, # 90 tablet, 1 Refills, Maintenance, 06/05/23 18:32:00 EST, [facility] #[id number], 176.8, cm, 04/30/23 7:39:00 EST, Height, 127.4, kg, 05/17/22 4:58:00 EST, Dry Weight Start Date: 06/05/23 Status: Ordered metFORMIN 750 mg oral tablet, extended release 1 tablet = 750 mg, By Mouth, Daily, # 90 tablet, 1 Refills, Maintenance, 05/19/23 11:12:00 EST, ER Tablet, [facility] #08145, Partial fill upon patient request if the prescription is for a schedule II opioid drug., 176.8, cm, 04/30/23 7:39:0... Start Date: 05/19/23 Status: Ordered mupirocin 2% topical ointment See Instructions, APPLY TOPICALLY TO THE AFFECTED AREA THREE TIMES DAILY FOR 14 DAYS, # 22 Gm, 0 Refills, Maintenance, 06/03/23 13:22:00 EST, [facility] #[id number], APPLY TOPICALLY TO THE AFFECTED AREA THREE [...] 08/25/23 15:58:00 EDT, Route to Pharmacy Electronically, [facility]... Start Date: 08/25/23 Stop Date: 09/09/23 Status: Ordered predniSONE 20 mg oral tablet See Instructions, 2 tablets By Mouth Daily for 5 days and then 1 tablet by mouth daily for 5 days, # 15 tablet, 0 Refills, Soft Stop, 01/08/23 16:53:00 EDT, Tablet, [facility] #[id number], Partial fill upon patient request if the prescription is... Start Date: 01/08/23 Status: Ordered triamcinolone 0.025% topical ointment 1 application, Topically, 3 times a day, Apply to affected area, # 15 Gm, 1 Refills, Maintenance, 06/03/23 9:33:00 EST, Ointment, [facility] #[id number], Partial fill upon patient request if theprescription is for a schedule II opioid drug., 1 a... Start Date: 06/03/23 Status: Ordered Ventolin HFA 108 mcg/inh inhalation aerosol with adapter 2 puffs, Inhalation, Every 6 hours, # 18 Gm, 5 Refills, Maintenance, 05/25/23 6:11:00 EST, [facility] #[id number], 176.8, cm, 04/30/23 7:39:00 EST, Height, 127.4, [...] Team Personnel Name: Margarito Berger MD Position: [facility] Physician - Primary Care Member Role: PCP Address: Address: [address] [place] [id number] Name: Bhumika Castillo RN Position: [facility] RN Member Role: Primary Care Nurse Name: Jaja Arshad RN Position: [facility] RN Member Role: Primary Care Nurse Name: Ludwin Butcher RN Position: S RN Member Role: Primary Care Nurse Care Team Related Persons Name: GARRETT FUENTES Address: home [address] [place] [address] Name: MARLO REINOSO Name: PT STS, NONE Name: EFFIE RICKETTS Name: RANDALL RICKETTS
--- OUTSIDE RECORDS SUMMARY | 2023-09-25 00:34 | XMS_ITS | Continuity of Care Document ---
Author Organization [facility] Address [address] [place] [address]- Care Team Providers Care Packaging Coordinator Name Role Phone Margarito Berger MD Primary Care Physician Encounter [facility] Date(s): 11/05/21 - 11/12/21 [facility] [address] [place] [address]- Encounter Diagnosis Severe obesity(Discharge Diagnosis) - 11/05/21 Hypertension(Discharge Diagnosis) - 11/05/21 SKIP - Obstructive sleep apnea(Discharge Diagnosis) - 11/05/21 Attending Physician: Margarito Berger MD Allergies, Adverse [...] 0 Refills, Soft Stop, 11/06/20 13:52:00 EDT, [facility] #00451, 176.8, cm, 11/06/20 13:38:00 EDT, Height, 140.3, kg, 11/06/20 13:38:00 EDT, Dry W... Start Date: 11/06/20 Status: Ordered ibuprofen 800 mg oral tablet 1, tablet, By Mouth, 3 times a day, PRN, TAKE WITH FOOD OR MILK, # 90 tablet, Refills 0, NEEDED FOR PAIN, Route to Pharmacy Electronically, [email or web address] #[id number], 176.8, cm, 06/21/21 15:26:00 EST, Height, 140.3, kg, 11/06/20 13:38:00 EDT, Dry... Start Date: 07/23/21 Status: Ordered ibuprofen 800 mg oral tablet 1, tablet, By Mouth, 3 times a day, PRN, TAKE WITH FOOD OR MILK, # 90 tablet, Refills 0, Tot. Refills 0, Maintenance, NEEDED FOR PAIN, 08/27/21 15:32:00 EDT, Route to Pharmacy Electronically, [email or web address] #59974, 176.8, cm, 08/06/21 15:06:0... Start Date: 08/27/21 [...] Mouth, Daily, # 30 tablet, 0 Refills, [email or web address] #[id number], 176.8, cm, 10/12/2214:16:00 EDT, Height, 123.4, kg, 10/12/21 15:16:00 EDT, Dry Weight Start Date: 10/16/21 Status: Ordered magnesium oxide 250 mg oral tablet 1 tablet = 250 mg, By Mouth, Daily at bedtime, for 14 days, # 14 tablet, 0 Refills, Acute 11/13/21 8:49:00 EDT, 10/30/21 8:49:00 EDT, Tablet, [email or web address] #[id number], Partial fill upon patient request if the prescription is for a schedule II opioi... Start Date: 10/30/21 Stop Date: 11/13/21 Status: Ordered metFORMIN 750 mg oral tablet, extended release 1 tablet, By Mouth, Daily, # 60 tablet, 5 Refills, [email or web address] #[id number], 176.8, cm, 02/02/2116:07:00 EDT, Height, 140.3, kg, 11/06/20 13:38:00 EDT, Dry Weight Start Date: 03/30/21 Status: Ordered oxyCODONE 5 mg oral tablet 5 mg, 1, tablet, By Mouth, Every 8 hours, PRN, mass pat ok, ok for less. Take only as needed., # 45tablet, Refills 0, Tot. Refills 0, Maintenance, Pain , Moderate, 10/31/21 14:49:00 EDT, Route to Pharmacy Electronically, [email or web address] #[id number],... Start Date: 10/31/21 Stop Date: 11/15/21 Status: Ordered oxyCODONE 5 mg oral tablet 5 mg, 1, tablet, By Mouth, Every 8 hours, PRN, mass pat ok, ok for less. Take only as needed., # 45tablet, Refills 0, Tot. Refills 0, Maintenance, Pain , Moderate, 09/28/21 17:08:00 EDT, Route to Pharmacy Electronically, [email or web address] #[id number],... Start Date: 09/28/21 Stop Date: 10/13/21 Status: [...] 11/29/21 8:49:00 EDT, 10/30/21 8:49:00 EDT, Capsule, [email or web address] #[id number], Partial fill upon patient request if the [...] prescription is for a schedule II opioid [facility] Start Date: 10/31/21 Stop Date: 11/30/21 Status: Ordered ProAir HFA 90 mcg/inh inhalation aerosol with adapter 2, puffs, Inhalation, Every 6 hours, PRN, # 8.5 Gm, Refills 5, Route to Pharmacy Electronically, [id number], [facility] #[id number], 176.8, cm, 10/12/21 15:16:00 EDT, Height, 123.4, kg, 10/12/21 15:16:00 EDT, Dry Weight Start Date: 11/05/21 Status: Ordered triamcinolone 0.1% topical cream See Instructions, APPLY TOPICALLY TO THE AFFECTED AREA ON ARMS AND LEGS THREE TIMES DAILY. MIX WITH16 OUNCES OF EUCERIN CREAM, # 80 Gm, 0 Refills, [facility] #[id number], 14, APPLY TOPICALLY TOTHE AFFECTED AREA ON [...] Health Status Clinical Service Informant Severe obesity Discharge Diagnosis 11/05/21 Hypertension Discharge Diagnosis 11/05/21 SKIP - Obstructive sleep apnea Discharge Diagnosis 11/05/21 Vital Signs Most recent to oldest [Reference Range]: 1 2 Height 176.8 cm (11/05/21 3:43 PM) 176.8 cm (11/05/21 3:08 PM) Weight 125.8 kg (11/05/21 3:08 PM) Oxygen Saturation [94-100 %] 98 % (11/05/21 3:08 PM) Pulse Rate [55-90 bpm] 98 bpm *H* (11/05/21 3:43 PM) 160 bpm *H* (11/05/21 3:08 PM) Body Mass Index [18.5-24.99] 40.25 *>HHI* (11/05/21 3:08 PM) Blood Pressure [90-138/55-84 mm Hg] 130/ 86mm Hg (11/05/21 3:08 PM) Mode of Delivery (Oxygen) Room air (11/05/21 3:08 PM) Blood pressure sites Arm, right (11/05/21 3:08 PM) Weight Obtained Via Standing scale (11/05/21 3:08 PM) Social History Social History Type Response Smoking Status 5-9 cigarettes (betw een 1/4 to 1/2 pack)/day in last 30 days; Tobacco use times per day: 7; entered on: 12/31/18 Sex
--- OUTSIDE RECORDS SUMMARY | 2023-09-25 00:34 | XMS_ITS | Continuity of Care Document ---
Author Organization [facility] Address [address] [place] [address]- Care Team Providers Care Education Adviser Name Role Phone Margarito Berger MD Primary Care Physician [place] [facility] [place] 06/21/23 [facility] [address] [place] [address]- Allergies, Adverse Reactions, Alerts No Known Medication [...] tablet, 0 Refills, Maintenance, 05/28/23 8:20:00 EST, [facility] #[id number], 176.8, cm, 04/30/23 7:39:00 EST, Height, 127.4, kg, 05/17/22 4:58:00 EST, Dry Weight Start Date: 05/28/23 Stop Date: 06/07/23 Status: Ordered cyclobenzaprine 10 mg oral tablet 1, tablet, By Mouth, 3 times a day, PRN, # 60 tablet, Refills 1, Maintenance, NEEDED FOR SPASMS,05/28/23 8:20:00 EST, Route to Pharmacy Electronically, [facility] #[id number], 176.8, cm, 04/30/23 7:39:00 EST, Height, 127.4, kg, 05/17/22 4:58:... Start Date: 05/28/23 Status: Ordered diclofenac sodium 75 mg oral delayed release tablet 1 tablet, By Mouth, 2 times a day with meals, DIRECTED., # 60 tablet, 1 Refills, Maintenance, 05/04/23 6:22:00 EST, [facility] #[id number], 176.8, cm, 04/30/23 7:39:00 EST, Height, 127.4, kg,05/17/22 4:58:00 EST, Dry Weight Start Date: 05/04/23 Status: Ordered doxycycline hyclate 100 mg oral tablet 1 tablet, By Mouth, 2 times a day, # 28 tablet, 0 Refills, Maintenance, 05/28/23 8:20:00 EST, [facility] #[id number], 176.8, cm, 04/30/23 7:39:00 EST, Height, 127.4, kg, 05/17/22 4:58:00 EST, Dry Weight Start Date: 05/28/23 Stop Date: 06/11/23 Status: Ordered EpiPen 2-Michael 0.3 mg injectable kit = 0.3 mg, Intramuscular, Once, PRN severe allergic reaction, may repeat if necessary, # 2 each, 0 Refills, Soft Stop, 01/24/23 12:05:00 EDT, [facility] #[id number], 176.8, cm, 01/24/23 10:59:00 EDT, Height, 127.4, kg, 05/17/22 4:58:00 EST, Dry We... Start Date: 01/24/23 Status: Ordered hydrOXYzine hydrochloride 50 mg oral tablet 1 tablet = 50 mg, By Mouth, 3 times a day, PRN as needed for itching, # 90 tablet, 1 Refills, Maintenance, 06/18/23 13:07:00 EST, [facility] #[id number], 176.8, cm, 04/30/23 7:39:00 EST, Height,127.4, kg, 05/17/22 4:58:00 EST, Dry Weight Start Date: 06/18/23 Status: Ordered hydrOXYzine hydrochloride 50 mg oral tablet 1 tablet = 50 mg, By Mouth, 3 times a day, # 90 tablet, 1 Refills, Maintenance, 04/25/23 11:23:00 EST, [facility] #[id number], 176.8, cm, 01/24/23 10:59:00 EDT, Height, 127.4, kg, 05/17/22 4:58:00 EST, Dry Weight Start Date: 04/25/23 Status: Ordered losartan 50 mg oral tablet 1 tablet, By Mouth, Daily, # 90 tablet, 1 Refills, Maintenance, 06/05/23 18:32:00 EST, [facility] #[id number], 176.8, cm, 04/30/23 7:39:00 EST, Height, 127.4, kg, 05/17/22 4:58:00 EST, Dry Weight Start Date: 06/05/23 Status: Ordered metFORMIN 750 mg oral tablet, extended release 1 tablet = 750 mg, By Mouth, Daily, # 90 tablet, 1 Refills, Maintenance, 05/19/23 11:12:00 EST, ER Tablet, [facility] #[id number], Partial fill upon patient request if the prescription is for a schedule II opioid drug., 176.8, cm, 04/30/23 7:39:0... Start Date: 05/19/23 Status: Ordered mupirocin 2% topical ointment See Instructions, APPLY TOPICALLY TO THE AFFECTED AREA THREE TIMES DAILY FOR 14 DAYS, # 22 Gm, 0 Refills, Maintenance, 06/03/23 13:22:00 EST, [facility] #[id number], APPLY TOPICALLY TO THE AFFECTED AREA THREE [...] 06/03/23 13:22:00 EST, Route to Pharmacy Electronically, [facility]... Start Date: 06/03/23 Stop Date: 06/18/23 Status: Ordered predniSONE 20 mg oral tablet See Instructions, 2 tablets By Mouth Daily for 5 days and then 1 tablet by mouth daily for 5 days, # 15 tablet, 0 Refills, Soft Stop, 01/08/23 16:53:00 EDT, Tablet, [facility] #[id number], Partial fill upon patient request if the prescription is... Start Date: 01/08/23 Status: Ordered triamcinolone 0.025% topical ointment 1 application, Topically, 3 times a day, Apply to affected area, # 15 Gm, 1 Refills, Maintenance, 06/03/23 9:33:00 EST, Ointment, [facility] #[id number], Partial fill upon patient request if theprescription is for a schedule II opioid drug., 1 a... Start Date: 06/03/23 Status: Ordered Ventolin HFA 108 mcg/inh inhalation aerosol with adapter 2 puffs, Inhalation, Every 6 hours, # 18 Gm, 5 Refills, Maintenance, 05/25/23 6:11:00 EST, [facility] #[id number], 176.8, cm, 04/30/23 7:39:00 EST, Height, 127.4, [...] Care Member Role: PCP Address: Address: [address] [place] [id number] Name: Bhumika Castillo RN Position: [facility] RN Member Role: Primary Care Nurse Name: Jaja Arshad RN Position: S RN Member Role: Primary Care Nurse Name: Ludwin Butcher RN Position: S RN Member Role: Primary Care Nurse Care Team Related Persons Name: GARRETT FUENTES Address: home [address] [place] [address] Name: MARLO REINOSO Name: PT STS, NONE Name: EFFIE RICKETTS Name: RANDALL RICKETTS
--- OUTSIDE RECORDS SUMMARY | 2023-09-25 00:34 | XMS_ITS | Continuity of Care Document ---
Author Organization [facility] Address [address] [place] [address]- Care Team Providers Care Youth Career Specialist Name Role Phone Margarito Berger MD Primary Care Physician Encounter [facility] [place] Date(s): 04/14/23 - 05/14/23 [facility] [address] [place] [address]- Allergies, Adverse Reactions, Alerts No Known Medication [...] 05/02/23 11:36:00 EST, Route to Pharmacy Electronically, [facility] #[id number], Partial fill upon patient request if the prescription is... Start Date: 05/02/23 Status: Ordered diclofenac sodium 75 mg oral delayed release tablet 1 tablet, By Mouth, 2 times a day with meals, DIRECTED., # 60 tablet, 1 Refills, Maintenance, 05/04/23 6:22:00 EST, [facility] #[id number], 176.8, cm, 04/30/23 7:39:00 EST, Height, 127.4, kg,05/17/22 4:58:00 EST, Dry Weight Start Date: 05/04/23 Status: Ordered doxycycline hyclate 100 mg oral tablet See Instructions, TAKE 1 TABLET BY MOUTH TWICE DAILY FOR 14 DAYS, # 28 tablet, 0 Refills, Maintenance, 04/10/23 14:15:00 EST, [facility] #[id number], 176.8, cm, 01/24/23 10:59:00 EDT, Height, 127.4, kg, 05/17/22 4:58:00 EST, Dry Weight Start Date: 04/10/23 Status: Ordered EpiPen 2-Michael 0.3 mg injectable kit = 0.3 mg, Intramuscular, Once, PRN severe allergic reaction, may repeat if necessary, # 2 each, 0 Refills, Soft Stop, 01/24/23 12:05:00 EDT, [facility] #[id number], 176.8, cm, 01/24/23 10:59:00 EDT, Height, 127.4, kg, 05/17/22 4:58:00 EST, Dry We... Start Date: 01/24/23 Status: Ordered hydrOXYzine hydrochloride 50 mg oral tablet 1 tablet = 50 mg, By Mouth, 3 times a day, # 90 tablet, 1 Refills, Maintenance, 04/25/23 11:23:00 EST, [facility] #[id number], 176.8, cm, 01/24/23 10:59:00 EDT, Height, 127.4, kg, 05/17/22 4:58:00 EST, Dry Weight Start Date: 04/25/23 Status: Ordered hydrOXYzine hydrochloride 50 mg oral tablet See Instructions, TAKE 1 TABLET BY MOUTH THREE TIMES DAILY, # 90 tablet, 0 Refills, Maintenance, 04/25/23 14:10:00 EST, [facility] #[id number], 176.8, cm, 01/24/23 10:59:00 EDT, Height, 127.4, kg, 05/17/22 4:58:00 EST, Dry Weight Start Date: 04/25/23 Status: Ordered losartan 50 mg oral tablet 1 tablet, By Mouth, Daily, # 90 tablet, 1 Refills, Maintenance, 11/28/22 21:33:00 EDT, [facility] #[id number], 176.8, cm, 11/05/22 11:22:00 EDT, Height, 127.4, kg, 05/17/22 4:58:00 EST, Dry Weight Start Date: 11/28/22 Status: Ordered mupirocin 2% topical ointment See Instructions, APPLY TOPICALLY TO THE AFFECTED AREA THREE TIMES DAILY FOR 14 DAYS, # 22 Gm, 0 Refills, Maintenance, 03/27/23 8:33:00 EST, [facility] #[id number], 10, APPLY TOPICALLY TO THE AFFECTED AREA THREE TIMES DAILY FOR 14 DAYS, 176.8, cm... Start Date: 03/27/23 Status: Ordered oxyCODONE 5 mg oral tablet 5 mg, 1, tablet, By Mouth, Every 8 hours, PRN, mass pat ok, ok for less. TAKE ONLY NEEDED, # 45 tablet, Refills 0, Tot. Refills 0, Maintenance, Pain , Moderate, 05/08/23 14:26:00 EST, Route to Pharmacy Electronically, [facility] #[id number], P... Start Date: 05/08/23 Stop Date: 05/23/23 Status: Ordered predniSONE 20 mg oral tablet See Instructions, 2 tablets By Mouth Daily for 5 days and then 1 tablet by mouth daily for 5 days, # 15 tablet, 0 Refills, Soft Stop, 01/08/23 16:53:00 EDT, Tablet, [facility] #[id number], Partial fill upon patient request if the prescription is... Start Date: 01/08/23 Status: Ordered Ventolin HFA 108 mcg/inh inhalation aerosol with adapter 2 puffs, Inhalation, Every 6 hours, # 8.5 Gm, 6 Refills, Maintenance, 12/23/22 11:39:00 EDT, [facility] #[id number], 176.8, cm, 12/23/22 11:25:00 EDT, Height, 127.4, [...] MD Position: [facility] Physician - Primary Care Member Role: PCP Address: Address: [address] [place] [address] Name: Bhumika Castillo RN Position: [facility] SN RN Member Role: Primary Care Nurse Name: Jaja Arshda RN Position: [facility] RN Member Role: Primary Care Nurse Name: Ludwin Butcher RN Position: [facility] RN Member Role: Primary Care Nurse Care Team Related Persons Name: GARRETT FUENTES Address: home [address] [place] [address] Name: MARLO REINOSO Name: PT STS, NONE Name: EFFIE RICKETTS Name: RANDALL RICKETTS
--- OUTSIDE RECORDS SUMMARY | 2023-09-25 00:34 | XMS_ITS | Continuity of Care Document ---
Author Organization [facility] Address [address] [place] [address]- Care Team Providers Care Smasher Hand Name Role Phone Margarito Berger MD Primary Care Physician Encounter [facility] [place] Date(s): 03/25/22 - 04/24/22 [facility] [address] [place] [address]- Allergies, Adverse Reactions, Alerts No Known Medication [...] 04/23/22 10:40:00 EST, Route to Pharmacy Electronically, [facility] #[id number], Partial fill upon patient request if the prescr... Start Date: 04/23/22 Status: Ordered EpiPen 2-Michael 0.3 mg injectable kit = 0.3 mg, Intramuscular, Once, PRN severe allergic reaction, may repeat if necessary, # 2 each, 0 Refills, Soft Stop, 11/06/20 13:52:00 EDT, [facility] #[id number], 176.8, cm, 11/06/20 13:38:00 EDT, Height, 140.3, kg, 11/06/20 13:38:00 EDT, Dry W... Start Date: 11/06/20 Status: Ordered hydrOXYzine hydrochloride 50 mg oral tablet See Instructions, TAKE 1 TABLET BY MOUTH FOUR TIMES DAILY FOR 12 DAYS NEEDED FOR ANXIETY, # 48 tablet, 0 Refills, Maintenance, 04/12/22 12:47:00 EST, [facility] #[id number], 176.8, cm, 02/28/22 10:47:00 EDT, Height, 123.4, kg, 10/12/21 15:16:0... Start Date: 04/12/22 Status: Ordered hydrOXYzine hydrochloride 50 mg oral tablet See Instructions, TAKE 1 TABLET BY MOUTH FOUR TIMES DAILY FOR 12 DAYS NEEDED FOR ANXIETY, # 48 tablet, 0 Refills, Maintenance, 01/15/22 17:07:00 EDT, [facility] #[id number], 176.8, cm, 01/04/22 15:55:00 EDT, Height, 123.4, kg, 10/12/21 15:16:0... Start Date: 01/15/22 Status: Ordered ibuprofen 800 mg oral tablet 1, tablet, By Mouth, 3 times a day, PRN, TAKE WITH FOOD OR MILK., # 90 tablet, Refills 5, Maintenance, NEEDED FOR PAIN(, 01/04/22 10:09:00 EDT, Route to Pharmacy Electronically, [facility] #[id number], 176.8, cm, 12/14/21 16:29:00 EDT, Height,... Start [...] Mouth, Daily, # 30 tablet, 5 Refills, [facility] #[id number], 176.8, cm, 11/05/2214:43:00 EDT, Height, 123.4, kg, 10/12/21 15:16:00 EDT, Dry Weight Start Date: 11/13/21 Status: Ordered magnesium oxide 250 mg oral tablet See Instructions, TAKE 1 TABLET BY MOUTH DAILY AT BEDTIME FOR 14 DAYS, # 14 tablet, 0 Refills, Maintenance, 02/08/22 13:01:00 EDT, [facility] #[id number], 176.8, cm, 01/04/22 15:55:00 EDT, Height, 123.4, kg, 10/12/21 15:16:00 EDT, Dry Weight Start Date: 02/08/22 Status: Ordered magnesium oxide 250 mg oral tablet See Instructions, TAKE 1 TABLET BY MOUTH DAILY AT BEDTIME FOR 14 DAYS, # 14 tablet, 0 Refills, Maintenance, 01/04/22 15:54:00 EDT, [facility] #[id number], 176.8, cm, 12/14/21 16:29:00 EDT, Height, 123.4, kg, 10/12/21 15:16:00 EDT, Dry Weight Start Date: 01/04/22 Status: Ordered magnesium oxide 250 mg oral tablet See Instructions, TAKE 1 TABLET BY MOUTH DAILY AT BEDTIME FOR 14 DAYS, # 14 tablet, 0 Refills, Maintenance, 04/02/22 7:31:00 EST, [facility] #[id number], 176.8, cm, 02/28/22 10:47:00 EDT, Height, 123.4, kg, 10/12/21 15:16:00 EDT, Dry Weight Start Date: 04/02/22 Status: Ordered metFORMIN 750 mg oral tablet, extended release 1 tablet, By Mouth, Daily, # 60 tablet, 5 Refills, [facility] #[id number], 176.8, cm, 02/02/2116:07:00 EDT, Height, 140.3, kg, 11/06/20 13:38:00 EDT, Dry Weight Start Date: 03/30/21 Status: Ordered metFORMIN 750 mg oral tablet, extended release See Instructions, TAKE 1 TABLET BY MOUTH DAILY, # 60 tablet, 6 Refills, Maintenance, 03/29/22 19:08:00 EST, [facility] #[id number], 176.8, cm, 02/28/22 10:47:00 EDT, Height, 123.4, kg, 10/12/21 15:16:00 EDT, Dry Weight Start Date: 03/29/22 Status: Ordered oxyCODONE 5 mg oral tablet 5 mg, 1, tablet, By Mouth, Every 8 hours, PRN, mass pat ok, ok for less. Take only as needed., # 45tablet, Refills 0, Tot. Refills 0, Maintenance, Pain , Moderate, 09/28/21 17:08:00 EDT, [facility] Electronically[id number],... Start Date: 09/28/21 Stop Date: 10/13/21 Status: Ordered oxyCODONE 5 mg oral tablet 5 mg, 1, tablet, By Mouth, Every 8 hours, PRN, for 30 days, mass pat ok, ok for less. Take only as needed., # 45 tablet, Refills 0, Tot. Refills 0, Hard Stop 04/28/22 15:22:00 EST, Pain , Moderate, 03/29/22 15:22:00 EST, Route to Pharmacy Electronical... Start Date: 03/29/22 Stop Date: 04/28/22 Status: [...] 04/19/22 9:57:00 EST, Route to Pharmacy Electronically, [facility] #[id number], P... Start Date: 04/19/22 Stop Date: 05/19/22 [...] 04/09/22 15:33:00 EST, Route to Pharmacy Electronically, [id number], [facility] #[id number], 176.8, cm, 02/28/22 10:47:00 EDT, Height, 123.4,... Start Date: 04/09/22 Status: Ordered triamcinolone 0.1% topical cream See Instructions, APPLY TOPICALLY TO THE AFFECTED AREA ON ARMS AND LEGS THREE TIMES DAILY. MIX WITH16 OUNCES OF EUCERIN CREAM, # 80 Gm, 0 Refills, [facility] #[id number], 14, APPLY TOPICALLY TOTHE AFFECTED AREA ON [...] Care Physician Member Role: PCP Address: Address: [address] [place] [address]- Care Team Related Persons Name: GARRETT FUENTES Address: home [address] [place] [id number] Name: MARLO REINOSO Name: PT STS, NONE
--- OUTSIDE RECORDS SUMMARY | 2023-09-25 00:34 | XMS_ITS | Continuity of Care Document ---
Author Organization [facility] Address Adult Weight Managem ent [address] [place] [address]- Care Team Providers Care Activity Assistant Name Role Phone Tra Kang MD Primary Care Physician Encounter [facility] [place] Date(s): 09/09/19 - 12/17/19 [facility] Adult Weight Management [address] [place] [address]- [facility] Attending Physician: Mario Reid MD Admitting Physician: Mario Reid MD Referring Physician: Tra Kang MD Allergies, Adverse Reactions, [...] 09/05/2010:22:00 EDT, Aerosol, Route to Pharmacy Electronically, [id number], [facility] #[id number], 176.8, cm, 12/31/18 14:22:0... Start Date: 09/06/19 [...] tablet, 0 Refills, Acute, 11/11/19 13:36:00 EDT, [facility] #[id number], 176.8, cm, 09/09/19 10:48:00 EDT, Height Start [...] CREAM, # 80 Gm, 0 Refills, Acute, [facility] #[id number], 25, APPLY TOPICALLY TO THE AFFECTED AREA [...]
--- OUTSIDE RECORDS SUMMARY | 2023-09-25 00:35 | XMS_ITS | Continuity of Care Document ---
Author Organization [facility] Address [address] [place] [address]- Care Team Providers Care Target Developer Name Role Phone Margarito Berger MD Primary Care Physician [place] [facility] [place] - 07/10/[address] [address]- Attending Physician: Admtr, Lona Admitting Physician: Admtr, [...] 07/01/22 17:28:00 EST, Route to Pharmacy Electronically, [facility] #[id number], Partial fill upon patient re... Start Date: 07/01/22 Stop Date: 07/15/22 Status: Ordered EpiPen 2-Michael 0.3 mg injectable kit = 0.3 mg, Intramuscular, Once, PRN severe allergic reaction, may repeat if necessary, # 2 each, 0 Refills, Soft Stop, 11/06/20 13:52:00 EDT, [facility] #[id number], 176.8, cm, 11/06/20 13:38:00 EDT, Height, 140.3, kg, 11/06/20 13:38:00 EDT, Dry W... Start Date: 11/06/20 Status: Ordered hydrOXYzine hydrochloride 50 mg oral tablet See Instructions, TAKE 1 TABLET BY MOUTH FOUR TIMES DAILY FOR 12 DAYS NEEDED FOR ANXIETY, # 48 tablet, 0 Refills, Maintenance, 06/14/22 15:46:00 EST, [facility] #[id number], 176.8, cm, 05/01/22 13:41:00 EST, Height, 127.4, kg, 05/17/22 4:58:00... Start Date: 06/14/22 Status: Ordered hydrOXYzine hydrochloride 50 mg oral tablet See Instructions, TAKE 1 TABLET BY MOUTH FOUR TIMES DAILY FOR 12 DAYS NEEDED FOR ANXIETY, # 48 tablet, 0 Refills, Maintenance, 07/01/22 17:28:00 EST, [facility] #[id number], 176.8, cm, 05/01/22 13:41:00 EST, Height, 127.4, [...] tablet, 1 Refills, Maintenance, 06/03/22 11:27:00 EST, [facility] #[id number], 176.8, cm, 05/01/22 13:41:00 EST, Height, 127.4, [...] 07/09/22 9:41:00 EDT, Route to Pharmacy Electronically, [facility] #[id number], P... Start Date: 07/09/22 Stop Date: 08/08/22 [...] 04/09/22 15:33:00 EST, Route to Pharmacy Electronically, [id number], [facility] #[id number], 176.8, cm, 02/28/22 10:47:00 EDT, Height, 123.4,... [...] Margarito Berger MD Position: [facility] Primary Care Physician Member Role: PCP Address: Address: [address] [place] [address] Name: Bhumika Castillo RN Position: [facility] RN Member Role: Primary Care Nurse Name: Jaja Arshad RN Position: [facility] RN Member Role: Primary Care Nurse Name: Ludwin Butcher RN Position: [facility] RN Member Role: Primary Care Nurse Care Team Related Persons Name: GARRETT FUENTES Address: home [address] [place] [address] Name: MARLO REINOSO Name: PT STS, NONE Name: EFFIE RICKETTS Name: RANDALL RICKETTS
--- OUTSIDE RECORDS SUMMARY | 2023-09-25 00:35 | XMS_ITS | Continuity of Care Document ---
Author Organization [facility] Address [address] [place] [address]- Care Team Providers Care First Mate Name Role Phone Margarito Berger MD Primary Care Physician [place] [facility] [place]): 11/22/22 - 12/26/22 [facility] [address] [place] [address]- Attending Physician: Margarito Berger MD Allergies, Adverse [...] 12/04/22 20:21:00 EDT, Route to Pharmacy Electronically, [facility] #[id number], Partial fill upon patient request if the prescription is... Start Date: 12/04/22 Status: Ordered diclofenac sodium 75 mg oral delayed release tablet See Instructions, TAKE 1 TABLET BY MOUTH TWICE DAILY WITH FOOD DIRECTED, # 60 tablet, 1 Refills,12/16/22 0:00:00 EDT, [facility] #[id number], 176.8, cm, 12/09/22 9:21:00 EDT, Height, 127.4, kg, 05/17/22 4:58:00 EST, Dry Weight Start Date: 12/16/22 Status: Ordered EpiPen 2-Michael 0.3 mg injectable kit = 0.3 mg, Intramuscular, Once, PRN severe allergic reaction, may repeat if necessary, # 2 each, 0 Refills, Soft Stop, 11/06/20 13:52:00 EDT, [facility] #[id number], 176.8, cm, 11/06/20 13:38:00 EDT, Height, 140.3, kg, 11/06/20 13:38:00 EDT, Dry W... Start Date: 11/06/20 Status: Ordered hydrOXYzine hydrochloride 50 mg oral tablet 1 tablet = 50 mg, By Mouth, 3 times a day, # 60 tablet, 1 Refills, Maintenance, 12/16/22 12:01:00 EDT, [facility] #[id number], 176.8, cm, 12/09/22 9:21:00 EDT, Height, 127.4, kg, 05/17/22 4:58:00 EST, Dry Weight Start Date: 12/16/22 Status: Ordered ibuprofen 800 mg oral tablet 1, tablet, By Mouth, 3 times a day, PRN, TAKE WITH FOOD OR MILK., # 90 tablet, Refills 5, Tot. Refills 5, Maintenance, NEEDED FOR PAIN(, 08/27/22 20:18:00 EDT, Route to Pharmacy Electronically, [facility] #[id number], 176.8, cm, 05/01/22 13:41... Start Date: 08/27/22 Status: Ordered losartan 50 mg oral tablet 1 tablet, By Mouth, Daily, # 90 tablet, 1 Refills, Maintenance, 11/28/22 21:33:00 EDT, [facility] #[id number], 176.8, cm, 11/05/22 11:22:00 EDT, Height, 127.4, kg, 05/17/22 4:58:00 EST, Dry Weight Start Date: 11/28/22 Status: Ordered mupirocin 2% topical ointment 1 application, Topically, 3 times a day, for 14 days, # 22 Gm, 3 Refills, Acute 01/20/23 16:10:00 EDT, 11/25/22 16:10:00 EDT, Ointment, [facility] #[id number], Partial fill upon patient request if the prescription is for a schedule II opioid drug... Start Date: 11/25/22 Stop Date: 01/20/23 Status: Ordered oxyCODONE 5 mg oral tablet 5 mg, 1, tablet, By Mouth, Every 8 hours, Was only able to get partial fill (16 tablets) from [facility]; mass pat Ok, # 29 tablet, Refills [...] 12/18/22 15:47:00 EDT, Route to Pharmacy Electronically, [facility]... Start Date: 12/18/22 Stop Date: 01/02/23 Status: Ordered ProAir HFA 90 mcg/inh inhalation aerosol with adapter 2, puffs, Inhalation, Every 6 hours, PRN, # 8.5 Gm, Refills 5, Tot. Refills 5, 04/09/22 15:33:00 EST, Route to Pharmacy Electronically, [id number], [facility] #[id number], 176.8, cm, 02/28/22 10:47:00 EDT, Height, 123.4,... Start Date: 04/09/22 Status: Ordered Ventolin HFA 108 mcg/inh inhalation aerosol with adapter 2 puffs, Inhalation, Every 6 hours, # 8.5 Gm, 6 Refills, Maintenance, 12/23/22 11:39:00 EDT, [facility] #[id number], 176.8, cm, 12/23/22 11:25:00 EDT, Height, 127.4, [...] Team Personnel Name: Margarito Berger MD Position: [facility] Physician - Primary Care Member Role: PCP Address: Address: [address] [place] [id number] Name: Bhumika Castillo RN Position: [facility] RN Member Role: Primary Care Nurse Name: Jaja Arshad RN Position: S RN Member Role: Primary Care Nurse Name: Ludwin Butcher RN Position: S RN Member Role: Primary Care Nurse Care Team Related Persons Name: GARRETT FUENTES Address: home [address] [place] [address] Name: MARLO REINOSO Name: PT STS, NONE Name: EFFIE RICKETTS Name: RANDALL RICKETTS
--- OUTSIDE RECORDS SUMMARY | 2023-09-25 00:35 | XMS_ITS | Continuity of Care Document ---
Author Organization [facility] Address [address] [place] [address]- Care Team Providers Care Space Physicist Name Role Phone Ab FRAGA, Margarito Dolan Primary Care Physician Encounter [facility] Date(s): 08/11/23 - 09/10/23 [facility] [address] [place] [address]- Allergies, Adverse Reactions, Alerts No Known Medication [...] 2 Refills, Soft Stop, 09/10/23 10:59:00 EDT, [facility] #[id number], Partial fill upon patient request if the prescription is for a schedule II opioid drug.,... Start Date: 09/10/23 Status: Ordered cyclobenzaprine 10 mg oral tablet 1, tablet, By Mouth, 3 times a day, PRN, # 270 tablet, Refills 1, Tot. Refills 1, Maintenance, NEEDED FOR SPASMS, 09/10/23 11:17:00 EDT, Route to Pharmacy Electronically, [facility] #[id number], 176.8, cm, 09/10/23 10:40:00 EDT, Height, 127.4,... Start Date: 09/10/23 Stop Date: 03/08/24 Status: Ordered diclofenac sodium 75 mg oral delayed release tablet 1 tablet, By Mouth, 2 times a day with meals, DIRECTED., # 60 tablet, 5 Refills, Maintenance, 07/01/23 20:55:00 EST, [facility] #[id number], 176.8, cm, 04/30/23 7:39:00 EST, Height, 127.4, kg, 05/17/22 4:58:00 EST, Dry Weight Start Date: 07/01/23 Status: Ordered EpiPen 2-Michael 0.3 mg injectable kit = 0.3 mg, Intramuscular, Once, PRN severe allergic reaction, may repeat if necessary, # 2 each, 0 Refills, Soft Stop, 01/24/23 12:05:00 EDT, [facility] #[id number], 176.8, cm, 01/24/23 10:59:00 EDT, Height, 127.4, kg, 05/17/22 4:58:00 EST, Dry We... Start Date: 01/24/23 Status: Ordered losartan 50 mg oral tablet 1 tablet, By Mouth, Daily, # 90 tablet, 1 Refills, Maintenance, 06/05/23 18:32:00 EST, [facility] #[id number], 176.8, cm, 04/30/23 7:39:00 EST, Height, 127.4, kg, 05/17/22 4:58:00 EST, Dry Weight Start Date: 06/05/23 Status: Ordered oxyCODONE 5 mg oral tablet 5 mg, 1, tablet, By Mouth, Every 8 hours, PRN, mass pat ok, ok for less. TAKE ONLY NEEDED DNF 09/09/2023, # 45 tablet, Refills 0, Tot. Refills 0, Maintenance, Pain , Moderate, 09/07/23 14:05:00 EDT, Route to Pharmacy Electronically, [facility] Start Date: 09/07/23 Stop Date: 09/22/23 Status: Ordered Ventolin HFA 108 mcg/inh inhalation aerosol with adapter 2 puffs, Inhalation, Every 6 hours, # 18 Gm, 5 Refills, Maintenance, 05/25/23 6:11:00 EST, [facility] #[id number], 176.8, cm, 04/30/23 7:39:00 EST, Height, 127.4, [...] Team Personnel Name: Margarito Berger MD Position: [facility] Physician - Primary Care Member Role: PCP Address: Address: [address] [place] [address] Name: Bhumika Castillo RN Position: [facility] SN RN Member Role: Primary Care Nurse Name: Jaja Arshad RN Position: [facility] RN Member Role: Primary Care Nurse Name: Ludwin Butcher RN Position: [facility] RN Member Role: Primary Care Nurse Care Team Related Persons Name: GARRETT FUENTES Address: home [address] [place] [address] Name: MARLO REINOSO Name: PT STS, NONE Name: EFFIE RICKETTS Name: RANDALL RICKETTS
--- OUTSIDE RECORDS SUMMARY | 2023-09-25 00:35 | XMS_ITS | Continuity of Care Document ---
Author Organization [facility] Address [address] [place] [address]- Care Team Providers Care Grout Machine Tender Name Role Phone Ab FRAGA, Margarito Dolan Primary Care Physician En[place] [facility] Date(s): 11/26/22 - 12/26/22 [facility] [address] [place] [address]- Allergies, Adverse Reactions, Alerts No Known Medication [...] 12/04/22 20:21:00 EDT, Route to Pharmacy Electronically, [facility] #[id number], Partial fill upon patient request if the prescription is... Start Date: 12/04/22 Status: Ordered diclofenac sodium 75 mg oral delayed release tablet See Instructions, TAKE 1 TABLET BY MOUTH TWICE DAILY WITH FOOD DIRECTED, # 60 tablet, 1 Refills,12/16/22 0:00:00 EDT, [facility] #[id number], 176.8, cm, 12/09/22 9:21:00 EDT, Height, 127.4, kg, 05/17/22 4:58:00 EST, Dry Weight Start Date: 12/16/22 Status: Ordered EpiPen 2-Michael 0.3 mg injectable kit = 0.3 mg, Intramuscular, Once, PRN severe allergic reaction, may repeat if necessary, # 2 each, 0 Refills, Soft Stop, 11/06/20 13:52:00 EDT, [facility] #[id number], 176.8, cm, 11/06/20 13:38:00 EDT, Height, 140.3, kg, 11/06/20 13:38:00 EDT, Dry W... Start Date: 11/06/20 Status: Ordered hydrOXYzine hydrochloride 50 mg oral tablet 1 tablet = 50 mg, By Mouth, 3 times a day, # 60 tablet, 1 Refills, Maintenance, 12/16/22 12:01:00 EDT, [facility] #[id number], 176.8, cm, 12/09/22 9:21:00 EDT, Height, 127.4, kg, 05/17/22 4:58:00 EST, Dry Weight Start Date: 12/16/22 Status: Ordered ibuprofen 800 mg oral tablet 1, tablet, By Mouth, 3 times a day, PRN, TAKE WITH FOOD OR MILK., # 90 tablet, Refills 5, Tot. Refills 5, Maintenance, NEEDED FOR PAIN(, 08/27/22 20:18:00 EDT, Route to Pharmacy Electronically, [facility] #[id number], 176.8, cm, 05/01/22 13:41... Start Date: 08/27/22 Status: Ordered losartan 50 mg oral tablet 1 tablet, By Mouth, Daily, # 90 tablet, 1 Refills, Maintenance, 11/28/22 21:33:00 EDT, [facility][id number], 176.8, cm, 11/05/22 11:22:00 EDT, Height, 127.4, kg, 05/17/22 4:58:00 EST, Dry Weight Start Date: 11/28/22 Status: Ordered mupirocin 2% topical ointment 1 application, Topically, 3 times a day, for 14 days, # 22 Gm, 3 Refills, Acute 01/20/23 16:10:00 EDT, 11/25/22 16:10:00 EDT, Ointment, [facility] #[id number], Partial fill upon patient request if the prescription is for a schedule II opioid drug... Start Date: 11/25/22 Stop Date: 01/20/23 Status: Ordered oxyCODONE 5 mg oral tablet 5 mg, 1, tablet, By Mouth, Every 8 hours, Was only able to get [facility] fill (16 tablets[facility]; mass pat Ok, # 29 tablet, Refills [...] 12/18/22 15:47:00 EDT, Route to Pharmacy Electronically, [facility]... Start Date: 12/18/22 Stop Date: 01/02/23 Status: Ordered ProAir HFA 90 mcg/inh inhalation aerosol with adapter 2, puffs, Inhalation, Every 6 hours, PRN, # 8.5 Gm, Refills 5, Tot. Refills 5, 04/09/22 15:33:00 EST, Route to Pharmacy Electronically, [id number], [facility] #[id number], 176.8, cm, 02/28/22 10:47:00 EDT, Height, 123.4,... Start Date: 04/09/22 Status: Ordered Ventolin HFA 108 mcg/inh inhalation aerosol with adapter 2 puffs, Inhalation, Every 6 hours, # 8.5 Gm, 6 Refills, Maintenance, 12/23/22 11:39:00 EDT, [facility] #[id number], 176.8, cm, 12/23/22 11:25:00 EDT, Height, 127.4, [...] Team Personnel Name: Margarito Berger MD Position: [facility] Physician - Primary Care Member Role: PCP Address: Address: [address] [place] [id number]- Name: Bhumika Castillo RN Position: [facility] RN Member Role: Primary Care Nurse Name: Jaja Arshad RN Position: [facility] RN Member Role: Primary Care Nurse Name: Ludwin Butcher RN Position: [facility] RN Member Role: Primary Care Nurse Care Team Related Persons Name: GARRETT FUENTES Address: home [address] [place] [address] Name: MARLO REINOSO Name: PT STS, NONE Name: EFFIE RICKETTS Name: RANDALL RICKETTS
--- OUTSIDE RECORDS SUMMARY | 2023-09-25 00:35 | XMS_ITS | Continuity of Care Document ---
Author Organization [facility] Address [address] [place] [address]- Care Team Providers Care Fire Marshal Refinery Name Role Phone Margarito Berger MD Primary Care Physician Encounter [facility] Date(s): 03/21/23 - 04/20/23 [facility] [address] [place] [address]- Allergies, Adverse Reactions, Alerts No Known Medication [...] 04/14/23 17:12:00 EST, Route to Pharmacy Electronically, [facility] #[id number], Partial fill upon patient request if the prescription is... Start Date: 04/14/23 Status: Ordered diclofenac sodium 75 mg oral delayed release tablet See Instructions, TAKE 1 TABLET BY MOUTH TWICE DAILY WITH FOOD DIRECTED, # 60 tablet, 1 Refills,03/11/23 16:29:00 EST, [facility] #[id number], 176.8, cm, 01/24/23 10:59:00 EDT, Height, 127.4, kg, 05/17/22 4:58:00 EST, Dry Weight Start Date: 03/11/23 Status: Ordered doxycycline hyclate 100 mg oral tablet See Instructions, TAKE 1 TABLET BY MOUTH TWICE DAILY FOR 14 DAYS, # 28 tablet, 0 Refills, Maintenance, 04/10/23 14:15:00 EST, [facility] #[id number], 176.8, cm, 01/24/23 10:59:00 EDT, Height, 127.4, kg, 05/17/22 4:58:00 EST, Dry Weight Start Date: 04/10/23 Status: Ordered EpiPen 2-Michael 0.3 mg injectable kit = 0.3 mg, Intramuscular, Once, PRN severe allergic reaction, may repeat if necessary, # 2 each, 0 Refills, Soft Stop, 01/24/23 12:05:00 EDT, [facility] #[id number], 176.8, cm, 01/24/23 10:59:00 EDT, Height, 127.4, kg, 05/17/22 4:58:00 EST, Dry We... Start Date: 01/24/23 Status: Ordered hydrOXYzine hydrochloride 50 mg oral tablet 1 tablet = 50 mg, By Mouth, 3 times a day, # 90 tablet, 1 Refills, Maintenance, 02/12/23 8:08:00 EDT, [facility] #[id number], 176.8, cm, 01/24/23 10:59:00 EDT, Height, 127.4, kg, 05/17/22 4:58:00 EST, Dry Weight Start Date: 02/12/23 Status: Ordered losartan 50 mg oral tablet 1 tablet, By Mouth, Daily, # 90 tablet, 1 Refills, Maintenance, 11/28/22 21:33:00 EDT, [facility] #[id number], 176.8, cm, 11/05/22 11:22:00 EDT, Height, 127.4, kg, 05/17/22 4:58:00 EST, Dry Weight Start Date: 11/28/22 Status: Ordered mupirocin 2% topical ointment See Instructions, APPLY TOPICALLY TO THE AFFECTED AREA THREE TIMES DAILY FOR 14 DAYS, # 22 Gm, 0 Refills, Maintenance, 03/27/23 8:33:00 EST, [facility] #[id number], 10, APPLY TOPICALLY TO THE AFFECTED AREA THREE TIMES DAILY FOR 14 DAYS, 176.8, cm... Start Date: 03/27/23 Status: Ordered oxyCODONE 5 mg oral tablet 5 mg, 1, tablet, By Mouth, Every 8 hours, PRN, mass pat ok, ok for less. TAKE ONLY NEEDED, # 45 tablet, Refills 0, Tot. Refills 0, Maintenance, Pain , Moderate, 04/09/23 7:37:00 EST, Route to Pharmacy Electronically, [facility] #[id number], Pa... Start Date: 04/09/23 Stop Date: 04/24/23 Status: Ordered predniSONE 20 mg oral tablet See Instructions, 2 tablets By Mouth Daily for 5 days and then 1 tablet by mouth daily for 5 days, # 15 tablet, 0 Refills, Soft Stop, 01/08/23 16:53:00 EDT, Tablet, [facility] #[id number], Partial fill upon patient request if the prescription is... Start Date: 01/08/23 Status: Ordered Ventolin HFA 108 mcg/inh inhalation aerosol with adapter 2 puffs, Inhalation, Every 6 hours, # 8.5 Gm, 6 Refills, Maintenance, 12/23/22 11:39:00 EDT, [facility] #[id number], 176.8, cm, 12/23/22 11:25:00 EDT, Height, 127.4, [...] Care Member Role: PCP Address: Address: [address] [place] [id number]- Name: Bhumika Castillo RN Position: [facility] SN RN Member Role: Primary Care Nurse Name: Jaja Arshad RN Position: [facility] RN Member Role: Primary Care Nurse Name: Ludwin Butcher RN Position: [facility] RN Member Role: Primary Care Nurse Care Team Related Persons Name: GARRETT FUENTES Address: home [address] [place] [address] Name: MARLO REINOSO Name: PT STS, NONE Name: EFFIE RICKETTS Name: RANDALL RICKETTS
--- OUTSIDE RECORDS SUMMARY | 2023-09-25 00:35 | XMS_ITS | Continuity of Care Document ---
Author Organization [facility] Address [address] [place] [address]- Care Team Providers Care Stacker Tender Name Role Phone Margarito Berger MD Primary Care Physician [place] [facility] [place]/22/23 - 05/22/23 [facility] [address] [place] [address]- Allergies, Adverse Reactions, Alerts No Known Medication [...] 05/02/23 11:36:00 EST, Route to Pharmacy Electronically, [facility] #[id number], Partial fill upon patient request if the prescription is... Start Date: 05/02/23 Status: Ordered diclofenac sodium 75 mg oral delayed release tablet 1 tablet, By Mouth, 2 times a day with meals, DIRECTED., # 60 tablet, 1 Refills, Maintenance, 05/04/23 6:22:00 EST, [facility] #[id number], 176.8, cm, 04/30/23 7:39:00 EST, Height, 127.4, kg,05/17/22 4:58:00 EST, Dry Weight Start Date: 05/04/23 Status: Ordered doxycycline hyclate 100 mg oral tablet See Instructions, TAKE 1 TABLET BY MOUTH TWICE DAILY FOR 14 DAYS, # 28 tablet, 0 Refills, Maintenance, 04/10/23 14:15:00 EST, [facility] #[id number], 176.8, cm, 01/24/23 10:59:00 EDT, Height, 127.4, kg, 05/17/22 4:58:00 EST, Dry Weight Start Date: 04/10/23 Status: Ordered EpiPen 2-Michael 0.3 mg injectable kit = 0.3 mg, Intramuscular, Once, PRN severe allergic reaction, may repeat if necessary, # 2 each, 0 Refills, Soft Stop, 01/24/23 12:05:00 EDT, [facility] #[id number], 176.8, cm, 01/24/23 10:59:00 EDT, Height, 127.4, kg, 05/17/22 4:58:00 EST, Dry We... Start Date: 01/24/23 Status: Ordered hydrOXYzine hydrochloride 50 mg oral tablet 1 tablet = 50 mg, By Mouth, 3 times a day, # 90 tablet, 1 Refills, Maintenance, 04/25/23 11:23:00 EST, [facility] #[id number], 176.8, cm, 01/24/23 10:59:00 EDT, Height, 127.4, kg, 05/17/22 4:58:00 EST, Dry Weight Start Date: 04/25/23 Status: Ordered hydrOXYzine hydrochloride 50 mg oral tablet See Instructions, TAKE 1 TABLET BY MOUTH THREE TIMES DAILY, # 90 tablet, 0 Refills, Maintenance, 04/25/23 14:10:00 EST, [facility] #[id number], 176.8, cm, 01/24/23 10:59:00 EDT, Height, 127.4, kg, 05/17/22 4:58:00 EST, Dry Weight Start Date: 04/25/23 Status: Ordered losartan 50 mg oral tablet 1 tablet, By Mouth, Daily, # 90 tablet, 1 Refills, Maintenance, 11/28/22 21:33:00 EDT, [facility] #[id number], 176.8, cm, 11/05/22 11:22:00 EDT, Height, 127.4, kg, 05/17/22 4:58:00 EST, Dry Weight Start Date: 11/28/22 Status: Ordered metFORMIN 750 mg oral tablet, extended release 1 tablet = 750 mg, By Mouth, Daily, # 90 tablet, 1 Refills, Maintenance, 05/19/23 11:12:00 EST, ER Tablet, [facility] #[id number], Partial fill upon patient request if the prescription is for a schedule II opioid drug., 176.8, cm, 04/30/23 7:39:0... Start Date: 05/19/23 Status: Ordered mupirocin 2% topical ointment See Instructions, APPLY TOPICALLY TO THE AFFECTED AREA THREE TIMES DAILY FOR 14 DAYS, # 22 Gm, 0 Refills, Maintenance, 03/27/23 8:33:00 EST, [facility] #[id number], 10, APPLY TOPICALLY TO THE AFFECTED AREA [...] 05/21/23 12:42:00 EST, Route to Pharmacy Electronically, [facility] Start Date: 05/21/23 Stop Date: 06/05/23 Status: Ordered oxyCODONE 5 mg oral tablet 5 mg, 1, tablet, By Mouth, Every 8 hours, PRN, for 15 days, mass pat ok, ok for less. TAKE ONLY NEEDED, # 45 tablet, Refills 0, Tot. Refills 0, Hard Stop 05/23/23 14:26:00 EST, Pain , Moderate, 05/08/23 14:26:00 EST, Route to Pharmacy [facility]... Start Date: 05/08/23 Stop Date: 05/23/23 Status: Ordered predniSONE 20 mg oral tablet See Instructions, 2 tablets By Mouth Daily for 5 days and then 1 tablet by mouth daily for 5 days, # 15 tablet, 0 Refills, Soft Stop, 01/08/23 16:53:00 EDT, Tablet, [facility] #[id number], Partial fill upon patient request if the prescription is... Start Date: 01/08/23 Status: Ordered Ventolin HFA 108 mcg/inh inhalation aerosol with adapter 2 puffs, Inhalation, Every 6 hours, # 8.5 Gm, 6 Refills, Maintenance, 12/23/22 11:39:00 EDT, [facility] #[id number], 176.8, cm, 12/23/22 11:25:00 EDT, Height, 127.4, [...] Berger MD Position: [facility] Physician - Primary Care Member Role: PCP Address: Address: [address] [place] [id number] Name: Bhumika Castillo RN Position: [facility] RN Member Role: Primary Care Nurse Name: Jaja Arshad RN Position: S RN Member Role: Primary Care Nurse Name: Ludwin Butcher RN Position: S RN Member Role: Primary Care Nurse Care Team Related Persons Name: GARRETT FUENTES Address: home [address] [place] [address] Name: MARLO REINOSO Name: PT STS, NONE Name: EFFIE RICKETTS Name: RANDALL RICKETTS
--- OUTSIDE RECORDS SUMMARY | 2023-09-25 00:35 | XMS_ITS | Continuity of Care Document ---
Author Organization [facility] Address [address] [place] [address]- Care Team Providers Care Advertisement Distributor Name Role Phone Ab FRAGA, Margarito Dolan Primary Care Physician Encounter [facility] Date(s): 07/24/23 - 08/23/23 [facility] [address] [place] [address]- Allergies, Adverse Reactions, Alerts No Known Medication [...] tablet, 0 Refills, Maintenance, 05/28/23 8:20:00 EST, [facility] #[id number], 176.8, cm, 04/30/23 7:39:00 EST, Height, 127.4, kg, 05/17/22 4:58:00 EST, Dry Weight Start Date: 05/28/23 Stop Date: 06/07/23 Status: Ordered cyclobenzaprine 10 mg oral tablet 1, tablet, By Mouth, 3 times a day, PRN, # 60 tablet, Refills 0, Maintenance, NEEDED FOR SPASMS,08/18/23 12:16:00 EDT, Route to Pharmacy Electronically, [facility] #[id number], 176.8, cm, 04/30/23 7:39:00 EST, Height, 127.4, kg, 05/17/22 4:58... Start Date: 08/18/23 Status: Ordered diclofenac sodium 75 mg oral delayed release tablet 1 tablet, By Mouth, 2 times a day with meals, DIRECTED., # 60 tablet, 5 Refills, Maintenance, 07/01/23 20:55:00 EST, [id number], 176.8, cm, 04/30/23 7:39:00 EST, Height, 127.4, kg, 05/17/22 4:58:00 EST, Dry Weight Start Date: 07/01/23 Status: Ordered doxycycline hyclate 100 mg oral tablet 1 tablet, By Mouth, 2 times a day, # 28 tablet, 0 Refills, Maintenance, 07/16/23 17:07:00 EDT, [facility] #[id number], 176.8, cm, 04/30/23 7:39:00 EST, Height, 127.4, kg, 05/17/22 4:58:00 EST, Dry Weight Start Date: 07/16/23 Stop Date: 07/30/23 Status: Ordered EpiPen 2-Michael 0.3 mg injectable kit = 0.3 mg, Intramuscular, Once, PRN severe allergic reaction, may repeat if necessary, # 2 each, 0 Refills, Soft Stop, 01/24/23 12:05:00 EDT, [id number], 176.8, cm, 01/24/23 10:59:00 EDT, Height, 127.4, kg, 05/17/22 4:58:00 EST, Dry We... Start Date: 01/24/23 Status: Ordered hydrOXYzine hydrochloride 50 mg oral tablet 1 tablet = 50 mg, By Mouth, 3 times a day, PRN as needed for itching, # 90 tablet, 1 Refills, Maintenance, 06/18/23 13:07:00 EST, [facility] #[id number], 176.8, cm, 04/30/23 7:39:00 EST, Height,127.4, kg, 05/17/22 4:58:00 EST, Dry Weight Start Date: 06/18/23 Status: Ordered hydrOXYzine hydrochloride 50 mg oral tablet 1 tablet = 50 mg, By Mouth, 3 times a day, # 90 tablet, 1 Refills, Maintenance, 04/25/23 11:23:00 EST, [facility] #[id number], 176.8, cm, 01/24/23 10:59:00 EDT, Height, 127.4, kg, 05/17/22 4:58:00 EST, Dry Weight Start Date: 04/25/23 Status: Ordered losartan 50 mg oral tablet 1 tablet, By Mouth, Daily, # 90 tablet, 1 Refills, Maintenance, 06/05/23 18:32:00 EST, [facility] #[id number], 176.8, cm, 04/30/23 7:39:00 EST, Height, 127.4, kg, 05/17/22 4:58:00 EST, Dry Weight Start Date: 06/05/23 Status: Ordered metFORMIN 750 mg oral tablet, extended release 1 tablet = 750 mg, By Mouth, Daily, # 90 tablet, 1 Refills, Maintenance, 05/19/23 11:12:00 EST, ER Tablet, [facility] #[id number], Partial fill upon patient request if the prescription is for a schedule II opioid drug., 176.8, cm, 04/30/23 7:39:0... Start Date: 05/19/23 Status: Ordered mupirocin 2% topical ointment See Instructions, APPLY TOPICALLY TO THE AFFECTED AREA THREE TIMES DAILY FOR 14 DAYS, # 22 Gm, 0 Refills, Maintenance, 06/03/23 13:22:00 EST, [facility] #[id number], APPLY TOPICALLY TO THE AFFECTED AREA THREE [...] 08/11/23 7:36:00 EDT, Route to Pharmacy Electronically, [facility] Start Date: 08/11/23 Stop Date: 08/26/23 Status: Ordered predniSONE 20 mg oral tablet See Instructions, 2 tablets By Mouth Daily for 5 days and then 1 tablet by mouth daily for 5 days, # 15 tablet, 0 Refills, Soft Stop, 01/08/23 16:53:00 EDT, Tablet, [facility] #[id number], Partial fill upon patient request if the prescription is... Start Date: 01/08/23 Status: Ordered triamcinolone 0.025% topical ointment 1 application, Topically, 3 times a day, Apply to affected area, # 15 Gm, 1 Refills, Maintenance, 06/03/23 9:33:00 EST, Ointment, [facility] #[id number], Partial fill upon patient request if theprescription is for a schedule II opioid drug., 1 a... Start Date: 06/03/23 Status: Ordered Ventolin HFA 108 mcg/inh inhalation aerosol with adapter 2 puffs, Inhalation, Every 6 hours, # 18 Gm, 5 Refills, Maintenance, 05/25/23 6:11:00 EST, [facility] #[id number], 176.8, cm, 04/30/23 7:39:00 EST, Height, 127.4, [...] Primary Care Member Role: PCP Address: Address: [address] [place] [id number] Name: Bhumika Castillo RN Position: [facility] RN Member Role: Primary Care Nurse Name: Jaja Arshad RN Position: [facility] RN Member Role: Primary Care Nurse Name: Ludwin Butcher RN Position: S RN Member Role: Primary Care Nurse Care Team Related Persons Name: GARRETT FUENTES Address: home [address] [place] [address] Name: MARLO REINOSO Name: PT STS, NONE Name: EFFIE RICKETTS Name: RANDALL RICKETTS
--- OUTSIDE RECORDS SUMMARY | 2023-09-25 00:35 | XMS_ITS | Continuity of Care Document ---
Author Organization [facility] Address [address] [place] [address]- Care Team Providers Care Production Troubleshooter Name Role Phone Margarito Berger MD Primary Care Physician Encounter [facility] Date(s): 06/03/22 - 07/19/22 [facility] [address] [place] [address]- Attending Physician: Margarito Berger MD Allergies, Adverse [...] 0 Refills, Soft Stop, 11/06/20 13:52:00 EDT, [facility] #[id number], 176.8, cm, 11/06/20 13:38:00 EDT, Height, 140.3, kg, 11/06/20 13:38:00 EDT, Dry W... Start Date: 11/06/20 Status: Ordered hydrOXYzine hydrochloride 50 mg oral tablet See Instructions, TAKE 1 TABLET BY MOUTH FOUR TIMES DAILY FOR 12 DAYS NEEDED FOR ANXIETY, # 48 tablet, 0 Refills, Maintenance, 06/14/22 15:46:00 EST, [facility] #[id number], 176.8, cm, 05/01/22 13:41:00 EST, Height, 127.4, kg, 05/17/22 4:58:00... Start Date: 06/14/22 Status: Ordered hydrOXYzine hydrochloride 50 mg oral tablet See Instructions, TAKE 1 TABLET BY MOUTH FOUR TIMES DAILY FOR 12 DAYS NEEDED FOR ANXIETY, # 48 tablet, 0 Refills, Maintenance, 07/01/22 17:28:00 EST, [facility] #[id number], 176.8, cm, 05/01/22 13:41:00 EST, Height, 127.4, [...] tablet, 1 Refills, Maintenance, 06/03/22 11:27:00 EST, [facility] #[id number], 176.8, cm, 05/01/22 13:41:00 EST, Height, 127.4, [...] 07/09/22 9:41:00 EDT, Route to Pharmacy Electronically, [facility] #[id number], P... Start Date: 07/09/22 Stop Date: 08/08/22 [...] Date: 06/25/22 Stop Date: 07/25/22 Status: Ordered pantoprazole 40 mg oral delayed release tablet = 40 mg, By Mouth, Daily in AM, 0 Refills, Maintenance, 05/18/22 7:55:00 EST, [facility] Tablet Start Date: 05/18/22 Status: Ordered ProAir HFA 90 mcg/inh inhalation aerosol with adapter 2, puffs, Inhalation, Every 6 hours, PRN, # 8.5 Gm, Refills 5, Tot. Refills 5, 04/09/22 15:33:00 EST, Route to Pharmacy Electronically, [id number], [facility] #[id number], 176.8, cm, 02/28/22 10:47:00 EDT, Height, 123.4,... [...] Position: [facility] Primary Care Physician Member Role: PCP Address: Address: [address] [place] [id number] Name: Bhumika Castillo RN Position: [facility] RN Member Role: Primary Care Nurse Name: Jaja Arshad RN Position: [facility] RN Member Role: Primary Care Nurse Name: Ludwin Butcher RN Position: [facility] RN Member Role: Primary Care Nurse Care Team Related Persons Name: GARRETT FUENTES Address: home [address] [place] [address] Name: MARLO REINOSO Name: PT STS, NONE Name: EFFIE RICKETTS Name: RANDALL RICKETTS
--- OUTSIDE RECORDS SUMMARY | 2023-09-25 00:35 | XMS_ITS | Continuity of Care Document ---
Author Organization [facility] Address [address] [place] [address]- Care Team Providers Care Health Clinician Name Role Phone Margarito Berger MD Primary Care Physician Encounter [facility] Date(s): 07/08/22 - 08/07/22 [facility] [address] [place] [address]- Allergies, Adverse Reactions, Alerts No Known Medication [...] 07/24/22 16:55:00 EDT, Route to Pharmacy Electronically, [facility] #[id number], Partial fill upon patient request if the... Start Date: 07/24/22 Stop Date: 08/24/22 Status: Ordered EpiPen 2-Michael 0.3 mg injectable kit = 0.3 mg, Intramuscular, Once, PRN severe allergic reaction, may repeat if necessary, # 2 each, 0 Refills, Soft Stop, 11/06/20 13:52:00 EDT, [facility] #[id number], 176.8, cm, 11/06/20 13:38:00 EDT, Height, 140.3, kg, 11/06/20 13:38:00 EDT, Dry W... Start Date: 11/06/20 Status: Ordered hydrOXYzine hydrochloride 50 mg oral tablet See Instructions, TAKE 1 TABLET BY MOUTH FOUR TIMES DAILY FOR 12 DAYS NEEDED FOR ANXIETY, # 48 tablet, 0 Refills, Maintenance, 06/14/22 15:46:00 EST, [facility] #[id number], 176.8, cm, 05/01/22 13:41:00 EST, Height, 127.4, kg, 05/17/22 4:58:00... Start Date: 06/14/22 Status: Ordered hydrOXYzine hydrochloride 50 mg oral tablet See Instructions, TAKE 1 TABLET BY MOUTH FOUR TIMES DAILY FOR 12 DAYS NEEDED FOR ANXIETY, # 48 tablet, 0 Refills, Maintenance, 07/01/22 17:28:00 EST, [facility] #[id number], 176.8, cm, 05/01/22 13:41:00 EST, Height, 127.4, kg, 05/17/22 4:58:00... Start Date: 07/01/22 Status: Ordered hydrOXYzine hydrochloride 50 mg oral tablet 1 tablet = 50 mg, By Mouth, 3 times a day, # 60 tablet, 1 Refills, Maintenance, 07/24/22 16:54:00 EDT, [facility] #[id number], 176.8, cm, 05/01/22 13:41:00 EST, Height, 127.4, [...] tablet, 1 Refills, Maintenance, 06/03/22 11:27:00 EST, [facility] #[id number], 176.8, cm, 05/01/22 13:41:00 EST, Height, 127.4, [...] Tot. Refills 0, Maintenance, Pain , Moderate, 08/05/22 16:50:00 EDT, Route to Pharmacy Electronically, [facility] #[id number], P... Start Date: 08/05/22 Stop Date: 08/20/22 Status: Ordered oxyCODONE 5 mg oral tablet 5 mg, 1, tablet, By Mouth, Every 8 hours, PRN, for 15 days, mass pat ok, ok for less. TAKE ONLY NEEDED, # 45 tablet, Refills 0, Tot. Refills 0, Hard Stop 08/08/22 12:39:00 EDT, Pain , Moderate, 07/24/22 12:39:00 EDT, Route to Pharmacy Electronicall... Start Date: 07/24/22 Stop Date: 08/08/22 Status: [...] 04/09/22 15:33:00 EST, Route to Pharmacy Electronically, [id number], [facility] #[id number], 176.8, cm, 02/28/22 10:47:00 EDT, Height, 123.4,... [...] List Condition Confirmation Course Effective Dates Status [facility] Adjustment disorder Confirmed Active Chronic [...] Margarito Berger MD Position: [facility] Primary Care Physician Member Role: PCP Address: Address: [address] [place] [id number] Name: Bhumika Castillo RN Position: [facility] SN RN Member Role: Primary Care Nurse Name: Jaja Arshad RN Position: [facility] RN Member Role: Primary Care Nurse Name: Ludwin Butcher RN Position: [facility] RN Member Role: Primary Care Nurse Care Team Related Persons Name: GARRETT FUENTES Address: home [address] [place] [id number] Name: MARLO REINOSO Name: PT STS, NONE Name: EFFIE RICKETTS Name: RANDALL RICKETTS
--- OUTSIDE RECORDS SUMMARY | 2023-09-25 00:35 | XMS_ITS | Continuity of Care Document ---
Author Organization [facility] Address [address] [place] [address]- Care Team Providers Care Track Inspecting Supervisor Name Role Phone Jorge Luis FRAGA, Tra Dolan Primary Care Physician [phone] Encounter [facility] Date(s): 06/15/19 - 07/30/19 [facility] [address] [place] [address]- [facility] Attending Physician: Cyndi LEE, Nilesh Landin Allergies, Adverse Reactions, Alerts No Known Medication [...] 07/06/19 17:25:00 EDT, Route to Pharmacy Electronically, [facility] #[id number], Partial fill upon patient request, 176.8, cm,... Start Date: 07/06/19 Stop Date: 08/03/19 Status: Ordered triamcinolone 0.1% topical cream See Instructions, APPLY EXTERNALLY TO TO THE AFFECTED AREA THREE TIMES DAILY FOR 14 DAYS TO ACTIVE RASH ON ARMS OR LEGS, # 80 Gm, 1 Refills, Acute, [facility] #[id number], 25, APPLY EXTERNALLY TO TO THE AFFECTED AREA THREE TIMES DAILY FOR 14 DAYS... Start Date: 07/16/19 Status: Ordered Problem List Condition Effective Dates [...]
--- OUTSIDE RECORDS SUMMARY | 2023-09-25 00:35 | XMS_ITS | Continuity of Care Document ---
Author Organization [facility] Address [address] [place] [address]- Care Team Providers Care Electrocardiograph Repairer Name Role Phone Margarito Berger MD [id number] [address] [place] [address]- Attending Physician: Gutierrez Sanders Referring Physician: Margarito Berger MD Allergies, Adverse [...] 11/11/22 11:59:00 EDT, Route to Pharmacy Electronically, [facility] #[id number], Partial fill upon patient request if the prescription is... Start Date: 11/11/22 Status: Ordered EpiPen 2-Michael 0.3 mg injectable kit = 0.3 mg, Intramuscular, Once, PRN severe allergic reaction, may repeat if necessary, # 2 each, 0 Refills, Soft Stop, 11/06/20 13:52:00 EDT, [facility] #[id number], 176.8, cm, 11/06/20 13:38:00 EDT, Height, 140.3, kg, 11/06/20 13:38:00 EDT, Dry W... Start Date: 11/06/20 Status: Ordered hydrOXYzine hydrochloride 50 mg oral tablet 1 tablet = 50 mg, By Mouth, 3 times a day, # 60 tablet, 1 Refills, Maintenance, 10/21/22 15:31:00 EDT, [facility] #[id number], 176.8, cm, 10/11/22 16:37:00 EDT, Height, 127.4, kg, 05/17/22 4:58:00 EST, Dry Weight Start Date: 10/21/22 Status: Ordered ibuprofen 800 mg oral tablet 1, tablet, By Mouth, 3 times a day, PRN, TAKE WITH FOOD OR MILK., # 90 tablet, Refills 5, Tot. Refills 5, Maintenance, NEEDED FOR PAIN(, 08/27/22 20:18:00 EDT, Route to Pharmacy Electronically, [facility] #[id number], 176.8, cm, 05/01/22 13:41... Start Date: 08/27/22 Status: Ordered losartan 50 mg oral tablet 1 tablet, By Mouth, Daily, # 90 tablet, 1 Refills, Maintenance, 11/28/22 21:33:00 EDT, [facility] #[id number], 176.8, cm, 11/05/22 11:22:00 EDT, Height, 127.4, kg, 05/17/22 4:58:00 EST, Dry Weight Start Date: 11/28/22 Status: Ordered mupirocin 2% topical ointment 1 application, Topically, 3 times a day, for 14 days, # 22 Gm, 3 Refills, Acute 01/20/23 16:10:00 EDT, 11/25/22 16:10:00 EDT, Ointment, [facility] #[id number], Partial fill upon patient request if the [...] 11/22/22 14:29:00 EDT, Route to Pharmacy Electronically, [facility] #[id number], P... Start Date: 11/22/22 Stop Date: 12/07/22 Status: Ordered ProAir HFA 90 mcg/inh inhalation aerosol with adapter 2, puffs, Inhalation, Every 6 hours, PRN, # 8.5 Gm, Refills 5, Tot. Refills 5, 04/09/22 15:33:00 EST, Route to Pharmacy Electronically, [id number], [facility] #[id number], 176.8, cm, 02/28/22 10:47:00 EDT, Height, 123.4,... Start Date: 04/09/22 Status: Ordered Ventolin HFA 108 mcg/inh inhalation aerosol with adapter See Instructions, INHALE 2 PUFFS BY MOUTH EVERY 6 HOURS NEEDED, # 18 Gm, 0 Refills, Maintenance,11/29/22 9:18:00 EDT, [facility] #[id number], 176.8, cm, 11/05/22 11:22:00 EDT, Height, 127.4,kg, [...] Team Personnel Name: Margarito Berger MD Position: [facility] Physician - Primary Care Member Role: PCP Address: Address: [address] [place] [address] Name: Bhumika Castillo RN Position: [facility] RN Member Role: Primary Care Nurse Name: Jaja Arshad RN Position: [facility] RN Member Role: Primary Care Nurse Name: Ludwin Butcher RN Position: [facility] RN Member Role: Primary Care Nurse Care Team Related Persons Name: GARRETT FUENTES Address: home [address] [place] [address] Name: MARLO REINOSO Name: PT STS, NONE Name: EFFIE RICKETTS Name: RANDALL RICKETTS
--- OUTSIDE RECORDS SUMMARY | 2023-09-25 00:35 | XMS_ITS | Continuity of Care Document ---
Author Organization [facility] Address [address] [address]- Care Team Providers Care Coremaker Name Role Phone Margarito Berger MD Primary Care Phys[id number] Date(s[facility]/17/[facility] - 03/28/23 [facility] [address] [address]- Attending Physician: Margarito Berger MD Admitting Physician: [...] 03/24/23 12:45:00 EST, Route to Pharmacy Electronically, [facility] #[id number], Partial fill upon patient request if the prescription is... Start Date: 03/24/23 Status: Ordered diclofenac sodium 75 mg oral delayed release tablet See Instructions, TAKE 1 TABLET BY MOUTH TWICE DAILY WITH FOOD DIRECTED, # 60 tablet, 1 Refills,03/11/23 16:29:00 EST, [facility] #[id number], 176.8, cm, 01/24/23 10:59:00 EDT, Height, 127.4, kg, 05/17/22 4:58:00 EST, Dry Weight Start Date: 03/11/23 Status: Ordered EpiPen 2-Michael 0.3 mg injectable kit = 0.3 mg, Intramuscular, Once, PRN severe allergic reaction, may repeat if necessary, # 2 each, 0 Refills, Soft Stop, 01/24/23 12:05:00 EDT, [facility] #[id number], 176.8, cm, 01/24/23 10:59:00 EDT, Height, 127.4, kg, 05/17/22 4:58:00 EST, Dry We... Start Date: 01/24/23 Status: Ordered hydrOXYzine hydrochloride 50 mg oral tablet 1 tablet = 50 mg, By Mouth, 3 times a day, # 90 tablet, 1 Refills, Maintenance, 02/12/23 8:08:00 EDT, [facility] #[id number], 176.8, cm, 01/24/23 10:59:00 EDT, Height, 127.4, kg, 05/17/22 4:58:00 EST, Dry Weight Start Date: 02/12/23 Status: Ordered losartan 50 mg oral tablet 1 tablet, By Mouth, Daily, # 90 tablet, 1 Refills, Maintenance, 11/28/22 21:33:00 EDT, [facility] #[id number], 176.8, cm, 11/05/22 11:22:00 EDT, Height, 127.4, kg, 05/17/22 4:58:00 EST, Dry Weight Start Date: 11/28/22 Status: Ordered mupirocin 2% topical ointment See Instructions, APPLY TOPICALLY TO THE AFFECTED AREA THREE TIMES DAILY FOR 14 DAYS, # 22 Gm, 0 Refills, Maintenance, 03/27/23 8:33:00 EST, [facility] #[id number], 10, APPLY TOPICALLY TO THE AFFECTED AREA THREE TIMES DAILY FOR 14 DAYS, 176.8, cm... Start Date: 03/27/23 Status: Ordered oxyCODONE 5 mg oral tablet 5 mg, 1, tablet, By Mouth, Every 8 hours, PRN, mass pat ok, ok for less. TAKE ONLY NEEDED, # 45 tablet, Refills 0, Tot. Refills 0, Maintenance, Pain , Moderate, 03/24/23 14:27:00 EST, Route to Pharmacy Electronically, [facility] #[id number], P... Start Date: 03/24/23 Stop Date: 04/08/23 Status: Ordered predniSONE 20 mg oral tablet See Instructions, 2 tablets By Mouth Daily for 5 days and then 1 tablet by mouth daily for 5 days, # 15 tablet, 0 Refills, Soft Stop, 01/08/23 16:53:00 EDT, Tablet, [facility] #[id number], Partial fill upon patient request if the prescription is... Start Date: 01/08/23 Status: Ordered Ventolin HFA 108 mcg/inh inhalation aerosol with adapter 2 puffs, Inhalation, Every 6 hours, # 8.5 Gm, 6 Refills, Maintenance, 12/23/22 11:39:00 EDT, [facility] #[id number], 176.8, cm, 12/23/22 11:25:00 EDT, Height, 127.4, [...] Care Member Role: PCP Address: Address: [address] [place] [id number] Name: Bhumika Castillo RN Position: [facility] RN Member Role: Primary Care Nurse Name: Jaja Arshad RN Position: [facility] RN Member Role: Primary Care Nurse Name: Ludwin Butcher RN Position: S RN Member Role: Primary Care Nurse Care Team Related Persons Name: GARRETT FUENTES Address: home [address] [place] [address] Name: MARLO REINOSO Name: PT STS, NONE Name: EFFIE RICKETTS Name: RANDALL RICKETTS
--- OUTSIDE RECORDS SUMMARY | 2023-09-25 00:35 | XMS_ITS | Continuity of Care Document ---
Author Organization [facility] Address [address] [place] [address]- Care Team Providers Care Dining Car Hop Name Role Phone Ab FRAGA, Margarito Dolan Primary Care Physician Encounter [facility] Date(s): 04/17/21 - 05/17/21 [facility] [address] [place] [address]- Allergies, Adverse Reactions, Alerts No Known Medication [...] 6 Refills, Maintenance, 01/08/21 12:55:00 EDT, Powder, [facility] #[id number], Partial fill upon patient request if the prescription is for a schedule II opioid drug., 2 puffs Inhalatio... Start Date: 01/08/21 Status: Ordered EpiPen 2-Michael 0.3 mg injectable kit = 0.3 mg, Intramuscular, Once, PRN severe allergic reaction, may repeat if necessary, # 2 each, 0 Refills, Soft Stop, 11/06/20 13:52:00 EDT, [facility] #[id number], 176.8, cm, 11/06/20 13:38:00 EDT, Height, 140.3, kg, 11/06/20 13:38:00 EDT, Dry W... Start Date: 11/06/20 Status: Ordered hydrOXYzine hydrochloride 50 mg oral tablet See Instructions, TAKE 1 TABLET BY MOUTH FOUR TIMES DAILY NEEDED FOR ANXIETY., # 40 tablet, 0 Refills, Maintenance, 03/23/21 12:03:00 EST, [facility] #[id number], 176.8, cm, 02/01/21 16:07:00EDT, Height, 140.3, kg, 11/06/20 13:38:00 EDT, Dry... Start Date: 03/23/21 Status: Ordered hydrOXYzine hydrochloride 50 mg oral tablet See Instructions, TAKE 1 TABLET BY MOUTH FOUR TIMES DAILY NEEDED FOR ANXIETY., # 40 tablet, 0 Refills, [facility] #[id number], 176.8, cm, 01/08/21 12:47:00 EDT, Height, 140.3, [...] 04/10/21 11:47:00 EST, Route to Pharmacy Electronically, [facility] #[id number], 176.8, cm, 02/01/21 16:0... Start Date: 04/10/21 [...] 02/26/21 14:39:00 EDT, Route to Pharmacy Electronically, [facility] #[id number], Partial fill upon patientrequest if the prescription is for a schedule II op... Start Date: 02/26/21 Stop Date: 05/27/21 Status: Ordered losartan 50 mg oral tablet 50 mg, 1, tablet, By Mouth, Daily, # 30 tablet, Refills 3, Tot. Refills 3, Maintenance, 11/22/20 14:41:00 EDT, Route to Pharmacy Electronically, [facility] #[id number], Partial fill upon patientrequest if the prescription is for a schedule II op... Start Date: 11/22/20 Status: Ordered losartan 50 mg oral tablet 1 tablet = 50 mg, By Mouth, Daily, for 30 days, # 30 tablet, 5 Refills, Physician Stop 10/13/21 14:50:00 EDT, 04/16/21 14:50:00 EST, [facility] #[id number], 176.8, cm, 02/01/21 16:07:00 EDT, Height, 140.3, kg, 11/06/20 13:38:00 EDT, Dry Weight Start Date: 04/16/21 Stop Date: 10/13/21 Status: Ordered metFORMIN 750 mg oral tablet, extended release 1 tablet, By Mouth, Daily, # 60 tablet, 5 Refills, [facility] #[id number], 176.8, cm, 02/02/2116:07:00 EDT, Height, 140.3, kg, 11/06/20 13:38:00 EDT, Dry Weight Start Date: 03/30/21 Status: Ordered oxyCODONE 5 mg oral tablet 5 mg, 1, tablet, By Mouth, Every 8 hours, MassPAT okay Okay to fill for less, # 20 tablet, Refills 0, Tot. Refills 0, Maintenance, 05/16/21 13:41:00 EST, Route to Pharmacy Electronically, [facility] #[id number], Partial fill upon patient request... Start Date: 05/16/21 Stop Date: 05/22/21 Status: Ordered triamcinolone 0.1% topical cream See Instructions, APPLY TOPICALLY TO THE AFFECTED AREA ON ARMS AND LEGS THREE TIMES DAILY FOR 14 DAYS. MIX WITH 16 OUNCES EUCERIN CREAM, # 80 Gm, 0 Refills, Maintenance, 03/23/21 12:03:00 EST, [email or web address] #[id number], 25, APPLY TOPICALLY TO THE AF... Start [...]
--- OUTSIDE RECORDS SUMMARY | 2023-09-25 00:35 | XMS_ITS | Continuity of Care Document ---
Author Organization [facility] Address [address] [place] [address]- Care Team Providers Care National Stormwater Leader Name Role Phone Margarito Berger MD Primary Care Physician En[place] [facility] Date(s): 11/07/21 - 12/07/21 [facility] [address] [place] [address]- Allergies, Adverse Reactions, Alerts No Known Medication [...] 0 Refills, Soft Stop, 11/06/20 13:52:00 EDT, [facility] #[id number], 176.8, cm, 11/06/20 13:38:00 EDT, Height, 140.3, kg, 11/06/20 13:38:00 EDT, Dry W... Start Date: 11/06/20 Status: Ordered ibuprofen 800 mg oral tablet 1, tablet, By Mouth, 3 times a day, PRN, TAKE WITH FOOD OR MILK., # 90 tablet, Refills 1, NEEDEDFOR PAIN(, Route to Pharmacy Electronically, [facility] #[id number], 176.8, cm, 11/05/21 15:43:00 EDT, Height, 123.4, [...] Mouth, Daily, # 30 tablet, 5 Refills, [facility] #[id number], 176.8, cm, 11/05/2214:43:00 EDT, Height, 123.4, kg, 10/12/21 15:16:00 EDT, Dry Weight Start Date: 11/13/21 Status: Ordered magnesium oxide 250 mg oral tablet 1 tablet = 250 mg, By Mouth, Daily at bedtime, for 14 days, # 14 tablet, 1 Refills, Acute 12/28/21 10:35:00 EDT, 11/30/21 10:35:00 EDT, Tablet, [facility] #[id number], Partial fill upon patient request if the prescription is for a schedule II opi... Start Date: 11/30/21 Stop Date: 12/28/21 Status: Ordered metFORMIN 750 mg oral tablet, extended release 1 tablet, By Mouth, Daily, # 60 tablet, 5 Refills, [facility] #[id number], 176.8, cm, 02/02/2116:07:00 EDT, Height, 140.3, kg, 11/06/20 13:38:00 EDT, Dry Weight Start Date: 03/30/21 Status: Ordered oxyCODONE 5 mg oral tablet 5 mg, 1, tablet, By Mouth, Every 8 hours, PRN, mass pat ok, ok for less. Take only as needed., # 45tablet, Refills 0, Tot. Refills 0, Maintenance, Pain , Moderate, 09/28/21 17:08:00 EDT, Route to Pharmacy Electronically, [facility] #[id number],... Start Date: 09/28/21 Stop Date: 10/13/21 Status: Ordered oxyCODONE 5 mg oral tablet 5 mg, 1, tablet, By Mouth, Every 8 hours, PRN, mass pat ok, ok for less. Take only as needed., # 45tablet, Refills 0, Tot. Refills 0, Maintenance, Pain , Moderate, 11/30/21 15:40:00 EDT, Route to Pharmacy Electronically, [facility] #[id number],... Start Date: 11/30/21 Stop Date: 12/15/21 Status: [...] 01/02/22 16:47:00 EDT, 12/03/21 16:47:00 EDT, Capsule, [facility] #[id number], Partial fill upon patient request if the prescription is for a schedule II opioid... Start Date: 12/03/21 Stop Date: 01/02/22 Status: Ordered ProAir HFA 90 mcg/inh inhalation aerosol with adapter 2, puffs, Inhalation, Every 6 hours, PRN, # 8.5 Gm, Refills 5, Route to Pharmacy Electronically, [id number], [facility] #[id number], 176.8, cm, 10/12/21 15:16:00 EDT, Height, 123.4, kg, 10/12/21 15:16:00 EDT, Dry Weight Start Date: 11/05/21 Status: Ordered triamcinolone 0.1% topical cream See Instructions, APPLY TOPICALLY TO THE AFFECTED AREA ON ARMS AND LEGS THREE TIMES DAILY. MIX WITH16 OUNCES OF EUCERIN CREAM, # 80 Gm, 0 Refills, [facility] #[id number], 14, APPLY TOPICALLY TOTHE AFFECTED AREA ON [...]
--- OUTSIDE RECORDS SUMMARY | 2023-09-25 00:35 | XMS_ITS | Continuity of Care Document ---
Author Organization [facility] Address [address] [place] [address]- Care Team Providers Care Comfort Filler Name Role Phone Margarito Berger MD Primary Care Physician Encounter [facility] [place] Date(s): 09/02/22 - 09/09/22 [facility] [address] [place] [address]- Encounter Diagnosis Chronic pain syndrome(Discharge Diagnosis) - 09/02/22 Hypertension(Discharge Diagnosis) - 09/02/22 Prediabetes(Discharge Diagnosis) - 09/02/22 Dermatitis(Discharge Diagnosis) - 09/02/22 Severe obesity(Discharge Diagnosis) - 09/02/22 Right elbow pain(Discharge Diagnosis) - 09/02/22 Anxiety(Discharge Diagnosis) - 09/02/22 Attending Physician: Margarito Berger MD Allergies, Adverse [...] tablet, Refills 0, Tot. Refills 0, Maintenance, 09/09/22 9:32:00 EDT, Route to Pharmacy Electronically, [facility] #[id number], Partial fill upon patient request if the prescription is f... Start Date: 09/09/22 Status: Ordered EpiPen 2-Michael 0.3 mg injectable kit = 0.3 mg, Intramuscular, Once, PRN severe allergic reaction, may repeat if necessary, # 2 each, 0 Refills, Soft Stop, 11/06/20 13:52:00 EDT, [facility] #[id number], 176.8, cm, 11/06/20 13:38:00 EDT, Height, 140.3, kg, 11/06/20 13:38:00 EDT, Dry W... Start Date: 11/06/20 Status: Ordered hydrOXYzine hydrochloride 50 mg oral tablet 1 tablet = 50 mg, By Mouth, 3 times a day, # 60 tablet, 1 Refills, Maintenance, 09/09/22 9:32:00 EDT, [facility] #[id number], 176.8, cm, 09/02/22 16:24:00 EDT, Height, 127.4, kg, 05/17/22 4:58:00 EST, Dry Weight Start Date: 09/09/22 Status: Ordered hydrOXYzine hydrochloride 50 mg oral tablet See Instructions, TAKE 1 TABLET BY MOUTH FOUR TIMES DAILY FOR 12 DAYS NEEDED FOR ANXIETY, # 48 tablet, 0 Refills, Maintenance, 06/14/22 15:46:00 EST, [facility] #[id number], 176.8, cm, 05/01/22 13:41:00 EST, Height, 127.4, kg, 05/17/22 4:58:00... Start Date: 06/14/22 Status: Ordered hydrOXYzine hydrochloride 50 mg oral tablet See Instructions, TAKE 1 TABLET BY MOUTH FOUR TIMES DAILY FOR 12 DAYS NEEDED FOR ANXIETY, # 48 tablet, 0 Refills, Maintenance, 07/01/22 17:28:00 EST, [facility] #[id number], 176.8, cm, 05/01/22 13:41:00 EST, Height, 127.4, [...] 08/27/22 20:18:00 EDT, Route to Pharmacy Electronically, [facility] #[id number], 176.8, cm, 05/01/22 13:41... Start Date: 08/27/22 [...] tablet, 1 Refills, Maintenance, 06/03/22 11:27:00 EST, [facility] #[id number], 176.8, cm, 05/01/22 13:41:00 EST, Height, 127.4, [...] 09/06/22 10:29:00 EDT, Route to Pharmacy Electronically, [facility] #[id number], P... Start Date: 09/06/22 Stop Date: 09/21/22 [...] EC Tablet Start Date: 05/18/22 Status: Ordered predniSONE 20 mg oral tablet 2 tablet = 40 mg, By Mouth, Daily, for 5 days, # 10 tablet, 0 Refills, Acute 09/14/22 9:32:00 EDT, 09/09/22 9:32:00 EDT, [facility] #[id number], Partial fill upon patient request if the prescription is for a schedule II opioid drug., 176.8, cm, 0... Start Date: 09/09/22 Stop Date: 09/14/22 Status: Ordered ProAir HFA 90 mcg/inh inhalation aerosol with adapter 2, puffs, Inhalation, Every 6 hours, PRN, # 8.5 Gm, Refills 5, Tot. Refills 5, 04/09/22 15:33:00 EST, Route to Pharmacy Electronically, [id number], [facility] #[id number], 176.8, cm, 02/28/22 10:47:00 EDT, Height, 123.4,... [...] Effective Dates Health Status Clinical Service Informant Chronic pain syndrome Discharge Diagnosis 09/02/22 Hypertension Discharge Diagnosis 09/02/22 Prediabetes Discharge Diagnosis 09/02/22 Dermatitis Discharge Diagnosis 09/02/22 Severe obesity Discharge Diagnosis 09/02/22 Right elbow pain Discharge Diagnosis 09/02/22 Anxiety Discharge Diagnosis 09/02/22 Vital Signs Most recent to oldest [Reference Range]: 1 2 Height 176.8 cm (09/02/22 4:24 PM) 176.8 cm (09/02/22 3:55 PM) Weight 124.9 kg (09/02/22 3:55 PM) Oxygen Saturation [94-100 %] 96 % (09/02/22 3:55 PM) Pulse Rate [55-90 bpm] 113 bpm *H* (09/02/22 3:55 PM) Body Mass Index [18.5-24.99 kg/m2] 39.96 kg/m2 *>HHI* (09/02/22 3:55 PM) Blood Pressure [90-138/55-84 mm Hg] 138/ 89mm Hg (09/02/22 4:24 PM) 141/87mm Hg *H* (09/02/22 3:55 PM) Respiratory Rate [16-30 br/min] 18 br/mi n (09/02/22 3:55 PM) Blood pressure sites Arm, right (09/02/22 3:55 PM) Weight Obtained Via Standing scale (09/02/22 3:55 PM) Social History Social History Type Response Smoking Status 5-9 cigarettes (betw een 1/4 to 1/2 pack)/day in last 30 days; Tobacco use times per day: 7; entered on: 12/31/18 Sex Note * Zhen Gutierrez: PERFORM, SIGN, VERIFY Event Display: Patient Education/Instruction Authored Date: [id number] [facility] *[facility] Clinical Summary Name EDD RICKETTS Age 46 Years 1975 PCP Ab FRAGA, Margarito Dolan PCP Visit Date 09/02/2022 15:45:00 Patient Instructions labs ordered for today follow up 3 months Additional Instructions: Scheduled Appointments?? Future Appointments ?No Future Appointments Scheduled Follow-Up Instructions ?? Diagnosis Dermatitis, unspecified; Anxiety disorder, unspecified; Pain in right elbow; Chronic pain syndrome;Prediabetes; Morbid (severe) obesity due to excess calories; Essential (primary) hypertension Medications: Please continue your medications until treatment is completed or stopped by your provider. Discuss any questions related to medications with your provider. New Medications [facility] #[id number], [address], [place] [id number], [phone] PredniSONE (predniSONE 20 mg oral tablet) 2 tab(s) Oral Daily for 5 Days. Refills: 0. Next Dose: Medications to Continue with No Changes These medications were not printed or sent to your pharmacy Acetaminophen (acetaminophen 325 mg oral tablet) 650 Milligram Oral every 6 hours. May take OTC not to exceed 3000 mg/day. Next Dose: Albuterol (ProAir HFA 90 mcg/inh inhalation aerosol with adapter) 2 puff(s) Inhalation every 6 hours as needed. Refills: 5. Next Dose: Aspirin (Aspirin Tablet) 325 Milligram Oral twice a day. Next Dose: Celecoxib (celecoxib 200 mg oral capsule) 1 capsule Oral Daily in the morning. Next Dose: Cyclobenzaprine (cyclobenzaprine 10 mg oral tablet) 1 tab(s) Oral 3 times a day. PRN spasms. Refills: 0. Next Dose: Docusate (Colace Capsule) 100 Milligram Oral twice a day. Next Dose: Durable Medical Equipment (Inhaler Spacer ) For use with Albuterol inhaler, as needed. Refills: 0. Next Dose: EPINEPHrine (EpiPen 2-Michael 0.3 mg injectable kit) 0.3 Milligram Intramuscular once as needed severe allergic reaction. may repeat if necessary. Refills: 0. Next Dose: HydrOXYzine (hydrOXYzine hydrochloride 50 mg oral tablet) TAKE 1 TABLET BY MOUTH FOUR TIMES DAILY FOR 12 DAYS NEEDED FOR ANXIETY. Refills: 0. Next Dose: HydrOXYzine (hydrOXYzine hydrochloride 50 mg oral tablet) 1 tab(s) Oral 3 times a day. Refills: 1. Next Dose: HydrOXYzine (hydrOXYzine hydrochloride 50 mg oral tablet) TAKE 1 TABLET BY MOUTH FOUR TIMES DAILY FOR 12 DAYS NEEDED FOR ANXIETY. Refills: 0. Next Dose: HydrOXYzine (hydrOXYzine pamoate 50 mg oral capsule) 1 capsule Oral every 6 hours as needed Anxiety. Next Dose: Ibuprofen (ibuprofen 800 mg oral tablet) 1 tab(s) Oral 3 times a day as needed NEEDED FOR PAIN(.TAKE WITH FOOD OR MILK.. Refills: 5. Next Dose: Losartan (losartan 50 mg oral tablet) 1 tab(s) Oral Daily for 90 Days. Refills: 1. Next Dose: Oxycodone (oxyCODONE 5 mg oral tablet) 1 tab(s) Oral every 8 hours as needed Pain , Moderate for 15Days. mass pat ok, ok for less. TAKE ONLY NEEDED. Refills: 0. Next Dose: Oxycodone (oxyCODONE 5 mg oral tablet) 1 tab(s) Oral every 8 hours as needed Pain , Moderate for 15Days. mass pat ok, ok for less. TAKE ONLY NEEDED. Refills: 0. Next Dose: Pantoprazole (pantoprazole 40 mg oral delayed release tablet) 40 Milligram Oral Daily in the morning. Next Dose: Polyethylene Glycol 3350 (MiraLax Powder) 17 gram Oral Daily as needed Constipation. Next Dose: Senna (senna 187 mg oral tablet) 1 tab(s) Oral Daily at Bedtime as needed as needed for constipation. Next Dose: Allergy Info:?? No Known Medication Allergies; Other Food Allergy; Seafood Medications Given This Visit Future Orders ?Comprehensive Metabolic Panel? Order Date:09/02/22?- Complete on or after?09/02/22 ?Lipid Panel Non Fasting? Order Date:09/02/22?- Complete on or after?09/02/22 ?Direct LDL? Order Date:09/02/22?- Complete on or after?09/02/22 ?CBC w/ Differential? Order Date:09/02/22?- Complete on or after?09/02/22 Vital Signs Height 176.8 cm Weight 124.9 kg BMI 39.96 kg/m2 Blood Pressure 138 mm Hg/89 mm Hg Temperature Pulse Rate 113 bpm Respiratory Rate 18 br/min 02 Sat Mode of Delivery 96 %/ You can now view a summary of your hospital visit from the comfort of your home through a free online portal called [employer]. [employer] is a website that allows you to securely view your medical information including discharge summary, medications and follow-up visits. ??You can alsosend a secure electronic message to your doctor???s office to request appointments, renew medications or just ask a question. You can enroll at [email or web address] or register during your next [...] primary care provider, you may find a [facility] provider by calling [facility] at [phone]. For information about the plan of care [...] Position: [facility] Primary Care Physician Member Role: PCP Address: Address: [address] [place] [address] Name: Bhumika Castillo RN Position: [facility] RN Member Role: Primary Care Nurse Name: Jaja Arshad RN Position: [facility] RN Member Role: Primary Care Nurse Name: Ludwin Butcher RN Position: [facility] RN Member Role: Primary Care Nurse Care Team Related Persons Name: GARRETT FUENTES Address: home [address] [place] [id number] Name: MARLO REINOSO Name: PT STS, NONE Name: EFFIE RICKETTS Name: RANDALL RICKETTS
--- OUTSIDE RECORDS SUMMARY | 2023-09-25 00:35 | XMS_ITS | Continuity of Care Document ---
Author Organization [facility] Address [address] [place] [address]- Care Team Providers Care Artist Representative Name Role Phone Margarito Berger MD Primary Care Physician Encounter [facility] [place] Date(s): 04/24/23 - 05/24/23 [facility] [address] [place] [address]- Allergies, Adverse Reactions, Alerts No Known Medication [...] 05/02/23 11:36:00 EST, Route to Pharmacy Electronically, [facility] #[id number], Partial fill upon patient request if the prescription is... Start Date: 05/02/23 Status: Ordered diclofenac sodium 75 mg oral delayed release tablet 1 tablet, By Mouth, 2 times a day with meals, DIRECTED., # 60 tablet, 1 Refills, Maintenance, 05/04/23 6:22:00 EST, [facility] #[id number], 176.8, cm, 04/30/23 7:39:00 EST, Height, 127.4, kg,05/17/22 4:58:00 EST, Dry Weight Start Date: 05/04/23 Status: Ordered doxycycline hyclate 100 mg oral tablet See Instructions, TAKE 1 TABLET BY MOUTH TWICE DAILY FOR 14 DAYS, # 28 tablet, 0 Refills, Maintenance, 04/10/23 14:15:00 EST, [facility] #[id number], 176.8, cm, 01/24/23 10:59:00 EDT, Height, 127.4, kg, 05/17/22 4:58:00 EST, Dry Weight Start Date: 04/10/23 Status: Ordered EpiPen 2-Michael 0.3 mg injectable kit = 0.3 mg, Intramuscular, Once, PRN severe allergic reaction, may repeat if necessary, # 2 each, 0 Refills, Soft Stop, 01/24/23 12:05:00 EDT, [facility] #[id number], 176.8, cm, 01/24/23 10:59:00 EDT, Height, 127.4, kg, 05/17/22 4:58:00 EST, Dry We... Start Date: 01/24/23 Status: Ordered hydrOXYzine hydrochloride 50 mg oral tablet 1 tablet = 50 mg, By Mouth, 3 times a day, # 90 tablet, 1 Refills, Maintenance, 04/25/23 11:23:00 EST, [facility] #[id number], 176.8, cm, 01/24/23 10:59:00 EDT, Height, 127.4, kg, 05/17/22 4:58:00 EST, Dry Weight Start Date: 04/25/23 Status: Ordered hydrOXYzine hydrochloride 50 mg oral tablet See Instructions, TAKE 1 TABLET BY MOUTH THREE TIMES DAILY, # 90 tablet, 0 Refills, Maintenance, 04/25/23 14:10:00 EST, [facility] #[id number], 176.8, cm, 01/24/23 10:59:00 EDT, Height, 127.4, kg, 05/17/22 4:58:00 EST, Dry Weight Start Date: 04/25/23 Status: Ordered losartan 50 mg oral tablet 1 tablet, By Mouth, Daily, # 90 tablet, 1 Refills, Maintenance, 11/28/22 21:33:00 EDT, [facility] #[id number], 176.8, cm, 11/05/22 11:22:00 EDT, Height, 127.4, kg, 05/17/22 4:58:00 EST, Dry Weight Start Date: 11/28/22 Status: Ordered metFORMIN 750 mg oral tablet, extended release 1 tablet = 750 mg, By Mouth, Daily, # 90 tablet, 1 Refills, Maintenance, 05/19/23 11:12:00 EST, ER Tablet, [facility] #[id number], Partial fill upon patient request if the prescription is for a schedule II opioid drug., 176.8, cm, 04/30/23 7:39:0... Start Date: 05/19/23 Status: Ordered mupirocin 2% topical ointment See Instructions, APPLY TOPICALLY TO THE AFFECTED AREA THREE TIMES DAILY FOR 14 DAYS, # 22 Gm, 0 Refills, Maintenance, 03/27/23 8:33:00 EST, [facility] #[id number], 10, APPLY TOPICALLY TO THE AFFECTED AREA [...] 05/21/23 12:42:00 EST, Route to Pharmacy Electronically, [facility]... Start Date: 05/21/23 Stop Date: 06/05/23 Status: Ordered predniSONE 20 mg oral tablet See Instructions, 2 tablets By Mouth Daily for 5 days and then 1 tablet by mouth daily for 5 days, # 15 tablet, 0 Refills, Soft Stop, 01/08/23 16:53:00 EDT, Tablet, [facility] #[id number], Partial fill upon patient request if the prescription is... Start Date: 01/08/23 Status: Ordered Ventolin HFA 108 mcg/inh inhalation aerosol with adapter 2 puffs, Inhalation, Every 6 hours, # 8.5 Gm, 6 Refills, Maintenance, 12/23/22 11:39:00 EDT, [facility] #[id number], 176.8, cm, 12/23/22 11:25:00 EDT, Height, 127.4, [...] Team Personnel Name: Margarito Berger MD Position: [facility] Physician - Primary Care Member Role: PCP Address: Address: [address] [place] [address] Name: Bhumika Castillo RN Position: [facility] SN RN Member Role: Primary Care Nurse Name: Jaja Arshad RN Position: [facility] RN Member Role: Primary Care Nurse Name: Ludwin Butcher RN Position: [facility] RN Member Role: Primary Care Nurse Care Team Related Persons Name: GARRETT FUENTES Address: home [address] [place] [address] Name: MARLO REINOSO Name: PT STS, NONE Name: EFFIE RICKETTS Name: RANDALL RICKETTS
--- OUTSIDE RECORDS SUMMARY | 2023-09-25 00:36 | XMS_ITS | Continuity of Care Document ---
Author Organization [facility] Address [address] [place] [address]- Care Team Providers Care Respiratory Care Technician Name Role Phone Margarito Berger MD Primary Care Physician Encounter [facility] [place] Date(s): 01/04/22 - 02/03/22 [facility] [address] [place] [address]- Attending Physician: Admisak, Lona Admitting Physician: Admtr, Ar8 Referring Physician: [...] Tot. Refills 1, Maintenance, Pain , Moderate, 01/24/22 17:10:00 EDT, Route to Pharmacy Electronically, [facility] #[id number], Partial fill upon patient request if the prescr... Start Date: 01/24/22 Status: Ordered EpiPen 2-Michael 0.3 mg injectable kit = 0.3 mg, Intramuscular, Once, PRN severe allergic reaction, may repeat if necessary, # 2 each, 0 Refills, Soft Stop, 11/06/20 13:52:00 EDT, [facility] #[id number], 176.8, cm, 11/06/20 13:38:00 EDT, Height, 140.3, kg, 11/06/20 13:38:00 EDT, Dry W... Start Date: 11/06/20 Status: Ordered hydrOXYzine hydrochloride 50 mg oral tablet See Instructions, TAKE 1 TABLET BY MOUTH FOUR TIMES DAILY FOR 12 DAYS NEEDED FOR ANXIETY, # 48 tablet, 0 Refills, Maintenance, 01/15/22 17:07:00 EDT, [facility] #[id number], 176.8, cm, 01/04/22 15:55:00 EDT, Height, 123.4, kg, 10/12/21 15:16:0... Start Date: 01/15/22 Status: Ordered hydrOXYzine hydrochloride 50 mg oral tablet See Instructions, TAKE 1 TABLET BY MOUTH FOUR TIMES DAILY FOR 12 DAYS NEEDED FOR ANXIETY, # 48 tablet, 0 Refills, Maintenance, 01/15/22 17:12:00 EDT, [facility] #[id number], 176.8, cm, 01/04/22 15:55:00 EDT, Height, 123.4, kg, 10/12/21 15:16:0... Start Date: 01/15/22 Status: Ordered ibuprofen 800 mg oral tablet 1, tablet, By Mouth, 3 times a day, PRN, TAKE WITH FOOD OR MILK., # 90 tablet, Refills 5, Maintenance, NEEDED FOR PAIN(, 01/04/22 10:09:00 EDT, Route to Pharmacy Electronically, [facility] #[id number], 176.8, cm, 12/14/21 16:29:00 EDT, Height,... Start [...] Mouth, Daily, # 30 tablet, 5 Refills, [facility] #[id number], 176.8, cm, 11/05/2214:43:00 EDT, Height, 123.4, kg, 10/12/21 15:16:00 EDT, Dry Weight Start Date: 11/13/21 Status: Ordered magnesium oxide 250 mg oral tablet See Instructions, TAKE 1 TABLET BY MOUTH DAILY AT BEDTIME FOR 14 DAYS, # 14 tablet, 0 Refills, Maintenance, 01/24/22 17:10:00 EDT, [facility] #[id number], 176.8, cm, 01/04/22 15:55:00 EDT, Height, 123.4, kg, 10/12/21 15:16:00 EDT, Dry Weight Start Date: 01/24/22 Status: Ordered magnesium oxide 250 mg oral tablet See Instructions, TAKE 1 TABLET BY MOUTH DAILY AT BEDTIME FOR 14 DAYS, # 14 tablet, 0 Refills, Maintenance, 01/04/22 15:54:00 EDT, [facility] #[id number], 176.8, cm, 12/14/21 16:29:00 EDT, Height, 123.4, kg, 10/12/21 15:16:00 EDT, Dry Weight Start Date: 01/04/22 Status: Ordered metFORMIN 750 mg oral tablet, extended release 1 tablet, By Mouth, Daily, # 60 tablet, 5 Refills, [facility] #[id number], 176.8, cm, 02/02/2116:07:00 EDT, Height, 140.3, kg, 11/06/20 13:38:00 EDT, Dry Weight Start Date: 03/30/21 Status: Ordered oxyCODONE 5 mg oral tablet 5 mg, 1, tablet, By Mouth, Every 8 hours, PRN, mass pat ok, ok for less. Take only as needed., # 45tablet, Refills 0, Tot. Refills 0, Maintenance, Pain , Moderate, 01/29/22 15:37:00 EDT, Route to Pharmacy Electronically, [facility] #[id number],... Start Date: 01/29/22 Stop Date: 02/28/22 Status: Ordered oxyCODONE 5 mg oral tablet 5 mg, 1, tablet, By Mouth, Every 8 hours, PRN, mass pat ok, ok for less. Take only as needed., # 45tablet, Refills 0, Tot. Refills 0, Maintenance, Pain , Moderate, 09/28/21 17:08:00 EDT, Route to Pharmacy Electronically, [facility] #[id number],... Start Date: 09/28/21 Stop Date: 10/13/21 Status: Ordered oxyCODONE 5 mg oral tablet 5 mg, 1, tablet, By Mouth, Every 8 hours, PRN, for 30 days, mass pat ok, ok for less. Take only as needed., # 45 tablet, Refills 0, Tot. Refills 0, Hard Stop 02/14/22 17:12:00 EDT, Pain , Moderate, 01/15/22 17:12:00 EDT, Route to Pharmacy Electronical... Start Date: 01/15/22 Stop Date: 02/14/22 Status: Ordered phentermine 30 mg oral capsule [...] Gm, Refills 5, Route to Pharmacy Electronically, [id number], [facility] #[id number], 176.8, cm, 10/12/21 15:16:00 EDT, Height, 123.4, kg, 10/12/21 15:16:00 EDT, Dry Weight Start Date: 11/05/21 Status: Ordered triamcinolone 0.1% topical cream See Instructions, APPLY TOPICALLY TO THE AFFECTED AREA ON ARMS AND LEGS THREE TIMES DAILY. MIX WITH16 OUNCES OF EUCERIN CREAM, # 80 Gm, 0 Refills, [facility] #[id number], 14, APPLY TOPICALLY TOTHE AFFECTED AREA ON [...] on: 12/31/18 Sex Patient Care team information Personnel Name: Ab FRAGA, Margarito Dolan [facility] [place], [place] [address]
--- OUTSIDE RECORDS SUMMARY | 2023-09-25 00:36 | XMS_ITS | Continuity of Care Document ---
Author Organization [facility] Address [address] [place] [address]- Care Team Providers Care Corporate Counselor Name Role Phone Margarito Berger MD Primary Care Physician Encounter [facility] [place] Date(s): 09/19/22 - 09/26/22 [facility] [address] [place] [address]- Encounter Diagnosis Folliculitis(Discharge Diagnosis) - 09/19/22 Attending Physician: Margarito Berger MD Allergies, Adverse [...] 09/09/22 9:32:00 EDT, Route to Pharmacy Electronically, [facility] #[id number], Partial fill upon patient request if the prescription is f... Start Date: 09/09/22 Status: Ordered doxycycline hyclate 100 mg oral tablet 1 tablet = 100 mg, By Mouth, 2 times a day, for 10 days, # 20 tablet, 0 Refills, Acute 09/29/22 14:02:00 EDT, 09/19/22 14:02:00 EDT, Tablet, [facility] #[id number], Partial fill upon patient request if the prescription is for a schedule II opioid... Start Date: 09/19/22 Stop Date: 09/29/22 Status: Ordered EpiPen 2-Michael 0.3 mg injectable kit = 0.3 mg, Intramuscular, Once, PRN severe allergic reaction, may repeat if necessary, # 2 each, 0 Refills, Soft Stop, 11/06/20 13:52:00 EDT, [facility] #[id number], 176.8, cm, 11/06/20 13:38:00 EDT, Height, 140.3, kg, 11/06/20 13:38:00 EDT, Dry W... Start Date: 11/06/20 Status: Ordered hydrOXYzine hydrochloride 50 mg oral tablet 1 tablet = 50 mg, By Mouth, 3 times a day, # 60 tablet, 1 Refills, Maintenance, 09/09/22 9:32:00 EDT, [facility] #[id number], 176.8, cm, 09/02/22 16:24:00 EDT, Height, 127.4, kg, 05/17/22 4:58:00 EST, Dry Weight Start Date: 09/09/22 Status: Ordered hydrOXYzine hydrochloride 50 mg oral tablet See Instructions, TAKE 1 TABLET BY MOUTH FOUR TIMES DAILY FOR 12 DAYS NEEDED FOR ANXIETY, # 48 tablet, 0 Refills, Maintenance, 06/14/22 15:46:00 EST, [facility] #[id number], 176.8, cm, 05/01/22 13:41:00 EST, Height, 127.4, kg, 05/17/22 4:58:00... Start Date: 06/14/22 Status: Ordered hydrOXYzine hydrochloride 50 mg oral tablet See Instructions, TAKE 1 TABLET BY MOUTH FOUR TIMES DAILY FOR 12 DAYS NEEDED FOR ANXIETY, # 48 tablet, 0 Refills, Maintenance, 07/01/22 17:28:00 EST, [facility] #[id number], 176.8, cm, 05/01/22 13:41:00 EST, Height, 127.4, [...] 08/27/22 20:18:00 EDT, Route to Pharmacy Electronically, [facility] #[id number], 176.8, cm, 05/01/22 13:41... Start Date: 08/27/22 [...] tablet, 1 Refills, Maintenance, 06/03/22 11:27:00 EST, [facility] #[id number], 176.8, cm, 05/01/22 13:41:00 EST, Height, 127.4, [...] 09/26/22 16:21:00 EDT, Route to Pharmacy Electronically, [facility] #[id number], P... Start Date: 09/26/22 Stop Date: 10/11/22 [...] 04/09/22 15:33:00 EST, Route to Pharmacy Electronically, [id number], [facility] #[id number], 176.8, cm, 02/28/22 10:47:00 EDT, Height, 123.4,... [...] Effective Dates Health Status inical Service Informant Folliculitis Discharge Diagnosis 09/19/22 Vital Signs Most recent to oldest [Reference Range]: 1 Height 176.8 cm (09/19/22 1:33 PM) Weight 124 kg (09/19/22 1:33 PM) Oxygen Saturation [94-100 %] 96 % (09/19/22 1:33 PM) Pulse Rate [55-90 bpm] 104 bpm *H* (09/19/22 1:33 PM) Body Mass Index [18.5-24.99 kg/m2] 39.67 kg/m2 *>HHI* (09/19/22 1:33 PM) Blood Pressure [90-138/55-84 mm Hg] 140/ 90mm Hg *H* (09/19/22 1:33 PM) Blood pressure sites Arm, right (09/19/22 1:33 PM) Weight Obtained Via Standing scale (09/19/22 1:33 PM) Social History Social History Type Response Smoking Status 5-9 cigarettes (betw een 1/4 to 1/2 pack)/day in last 30 days; Tobacco use times per day: 7; entered on: 12/31/18 Sex Note * Agustina Reyna: PERFORM, SIGN, VERIFY Event Display: Patient Education/Instruction Authored Date: [id number] [facility] Clinical Summary Name EDD RICKETTS Age 46 Years 1975 PCP Ab FRAGA, Margarito Dolan PCP Visit Date 09/19/2022 13:30:00 Additional Instructions: Scheduled Appointments?? Future Appointments ?*[facility] ?[address]??[place],??[place],??[address] ?Phone:??--?Fax:??-- ?Appt. Date:??12/04/2022?3:00 PM ?Scheduled Provider:??Margarito Berger MD Follow-Up Instructions ?? Diagnosis Follicular disorder, unspecified Medications: Please continue your medications until treatment is completed or stopped by your provider. Discuss any questions related to medications with your provider. New Medications [facility] #[id number], [address], [place] [id number], [phone] Doxycycline (doxycycline hyclate 100 mg oral tablet) 1 tab(s) Oral twice a day for 10 Days. Refills: 0. Next Dose: Medications to [...] orders Vital Signs Height 176.8 cm Weight 124 kg BMI 39.67 kg/m2 Blood Pressure 140 mm Hg/90 mm Hg Temperature Pulse Rate 104 bpm Respiratory Rate 02 Sat Mode of Delivery 96 %/ You can now view a summary of your hospital visit from the comfort of your home through a free online portal called [employer] ([employer]). [employer]) is a website that allows you to securely view your medical information including discharge summary, medications and follow-up visits. ??You can alsosend a secure electronic message to your doctor???s office to request appointments, renew medications or just ask a question. You can enroll at [email or web address] or register during your next office visit. [...] primary care provider, you may find a [facility] provider by calling [facility] at [phone]. For information about the plan of care [...] MD Position: [facility] Physician - Primary Care Member Role: PCP Address: Address: [address] [place] [address] Name: Bhumika Castillo RN Position: [facility] RN Member Role: Primary Care Nurse Name: Jaja Arshad RN Position: S RN Member Role: Primary Care Nurse Name: Ludwin Butcher RN Position: [facility] RN Member Role: Primary Care Nurse Care Team Related Persons Name: GARRETT FUENTES Address: home [address] [place] [address] Name: MARLO REINOSO Name: PT STS, NONE Name: EFFIE RICKETTS Name: RANDALL RICKETTS
--- OUTSIDE RECORDS SUMMARY | 2023-09-25 00:36 | XMS_ITS | Continuity of Care Document ---
Author Organization [facility] Address [address] [place] [address]- Care Team Providers Care Appeals And Generalist Clerk Name Role Phone Margarito Berger MD Primary Care Physician Encounter [facility] [place] Date(s): 06/24/22 - 07/24/22 [facility] [address] [place] [address]- Allergies, Adverse Reactions, Alerts No Known Medication [...] 07/24/22 16:55:00 EDT, Route to Pharmacy Electronically, [facility] #[id number], Partial fill upon patient request if the... Start Date: 07/24/22 Stop Date: 08/24/22 Status: Ordered EpiPen 2-Michael 0.3 mg injectable kit = 0.3 mg, Intramuscular, Once, PRN severe allergic reaction, may repeat if necessary, # 2 each, 0 Refills, Soft Stop, 11/06/20 13:52:00 EDT, [facility] #[id number], 176.8, cm, 11/06/20 13:38:00 EDT, Height, 140.3, kg, 11/06/20 13:38:00 EDT, Dry W... Start Date: 11/06/20 Status: Ordered hydrOXYzine hydrochloride 50 mg oral tablet See Instructions, TAKE 1 TABLET BY MOUTH FOUR TIMES DAILY FOR 12 DAYS NEEDED FOR ANXIETY, # 48 tablet, 0 Refills, Maintenance, 06/14/22 15:46:00 EST, [facility] #[id number], 176.8, cm, 05/01/22 13:41:00 EST, Height, 127.4, kg, 05/17/22 4:58:00... Start Date: 06/14/22 Status: Ordered hydrOXYzine hydrochloride 50 mg oral tablet See Instructions, TAKE 1 TABLET BY MOUTH FOUR TIMES DAILY FOR 12 DAYS NEEDED FOR ANXIETY, # 48 tablet, 0 Refills, Maintenance, 07/01/22 17:28:00 EST, [facility] #[id number], 176.8, cm, 05/01/22 13:41:00 EST, Height, 127.4, kg, 05/17/22 4:58:00... Start Date: 07/01/22 Status: Ordered hydrOXYzine hydrochloride 50 mg oral tablet 1 tablet = 50 mg, By Mouth, 3 times a day, # 60 tablet, 1 Refills, Maintenance, 07/24/22 16:54:00 EDT, [facility] #[id number], 176.8, cm, 05/01/22 13:41:00 EST, Height, 127.4, [...] tablet, 1 Refills, Maintenance, 06/03/22 11:27:00 EST, [facility] #[id number], 176.8, cm, 05/01/22 13:41:00 EST, Height, 127.4, [...] 07/24/22 12:39:00 EDT, Route to Pharmacy Electronically, [facility] #[id number], P... Start Date: 07/24/22 Stop Date: 08/08/22 Status: Ordered oxyCODONE 5 [...] 04/09/22 15:33:00 EST, Route to Pharmacy Electronically, [id number], [facility] #[id number], 176.8, cm, 02/28/22 10:47:00 EDT, Height, 123.4,... [...] List Condition Confirmation Course Effective Dates Status [facility] at Informant Adjustment disorder Confirmed [...] Care team information Care Team Personnel Name: aMrgarito Berger MD Position: [facility] Primary Care Physician Member Role: PCP Address: Address: [address] [place] [id number] Name: Bhumika Castillo RN Position: [facility] SN RN Member Role: Primary Care Nurse Name: Jaja Arshad RN Position: [facility] RN Member Role: Primary Care Nurse Name: Ludwin Butcher RN Position: [facility] RN Member Role: Primary Care Nurse Care Team Related Persons Name: GARRETT FUENTES Address: home [address] [place] [id number] Name: MARLO REINOSO Name: PT STS, NONE Name: EFFIE RICKETTS Name: RANDALL RICKETTS
--- OUTSIDE RECORDS SUMMARY | 2023-09-25 00:36 | XMS_ITS | Continuity of Care Document ---
Author Organization [facility] Address [address] [place] [address]- Care Team Providers Care Library Clerk Talking Books Name Role Phone Ab FRAGA, Margarito Dolan Primary Care Physician En[place] [facility] [place] Date(s): 08/15/21 - 09/14/21 [facility] [address] [place] [address]- Allergies, Adverse Reactions, Alerts No Known Medication [...] 0 Refills, Soft Stop, 11/06/20 13:52:00 EDT, [facility] #[id number], 176.8, cm, 11/06/20 13:38:00 EDT, Height, 140.3, kg, 11/06/20 13:38:00 EDT, Dry W... Start Date: 11/06/20 Status: Ordered ibuprofen 800 mg oral tablet 1, tablet, By Mouth, 3 times a day, PRN, TAKE WITH FOOD OR MILK, # 90 tablet, Refills 0, NEEDED FOR PAIN, Route to Pharmacy Electronically, [facility] #[id number], 176.8, cm, 06/21/21 15:26:00 EST, Height, 140.3, kg, 11/06/20 13:38:00 EDT, Dry... Start Date: 07/23/21 Status: Ordered ibuprofen 800 mg oral tablet 1, tablet, By Mouth, 3 times a day, PRN, TAKE WITH FOOD OR MILK, # 90 tablet, Refills 0, Tot. Refills 0, Maintenance, NEEDED FOR PAIN, 08/27/21 15:32:00 EDT, Route to Pharmacy Electronically, [facility] #[id number], 176.8, cm, 08/06/21 15:06:0... Start Date: 08/27/21 [...] 02/26/21 14:39:00 EDT, Route to Pharmacy Electronically, [facility] #[id number], Partial fill upon patientrequest if the prescription is for a schedule II op... Start Date: 02/26/21 Stop Date: 05/27/21 Status: Ordered losartan 50 mg oral tablet 1 tablet = 50 mg, By Mouth, Daily, for 30 days, # 30 tablet, 5 Refills, Physician Stop 10/13/21 14:50:00 EDT, 04/16/21 14:50:00 EST, [facility] #[id number], 176.8, cm, 02/01/21 16:07:00 EDT, Height, 140.3, kg, 11/06/20 13:38:00 EDT, Dry Weight Start Date: 04/16/21 Stop Date: 10/13/21 Status: Ordered metFORMIN 750 mg oral tablet, extended release 1 tablet, By Mouth, Daily, # 60 tablet, 5 Refills, [facility] #[id number], 176.8, cm, 02/02/2116:07:00 EDT, Height, 140.3, kg, [...] 09/13/21 17:29:00 EDT, Route to Pharmacy Electronically, adjust... Start Date: 09/13/21 Stop Date: 09/28/21 Status: Ordered oxyCODONE 5 mg oral tablet 5 mg, 1, tablet, By Mouth, Every 8 hours, PRN, for 15 days, Take only as needed, # 45 tablet, Refills 0, Tot. Refills 0, Hard Stop 09/15/21 12:03:00 EDT, Pain , Moderate, 08/31/21 12:03:00 EDT, Routeto Pharmacy Electronically, [facility] #0... Start Date: 08/31/21 Stop Date: 09/15/21 Status: Ordered phentermine 30 mg oral capsule [...] 09/23/21 17:16:00 EDT, 08/24/21 17:16:00 EDT, Capsule, [facility] #[id number], Partial fill upon patient request if the prescription is for a schedule II opioid... Start Date: 08/24/21 Stop Date: 09/23/21 Status: Ordered ProAir HFA 90 mcg/inh inhalation aerosol with adapter 2, puffs, Inhalation, Every 6 hours, PRN, # 8.5 Gm, Refills 5, Route to Pharmacy Electronically, [id number], [facility] #[id number], 176.8, cm, 05/18/21 14:17:00 EST, Height, 140.3, kg, 11/06/20 13:38:00 EDT, Dry Weight Start Date: 06/13/21 Status: Ordered triamcinolone 0.1% topical cream See Instructions, APPLY TOPICALLY TO THE AFFECTED AREA ON ARMS AND LEGS THREE TIMES DAILY. MIX WITH16 OUNCES OF EUCERIN CREAM, # 80 Gm, 0 Refills, [facility] #[id number], 14, APPLY TOPICALLY TOTHE AFFECTED AREA ON [...]
--- OUTSIDE RECORDS SUMMARY | 2023-09-25 00:36 | XMS_ITS | Continuity of Care Document ---
Author Organization [facility] Address [address] [place] [address]- Care Team Providers Care Signal Maintenance Technician Name Role Phone Ab FRAGA, Margarito Dolan Primary Care Physician Encounter [facility] [place] Date(s): 12/13/22 - 01/12/23 [facility] [address] [place] [address]- Allergies, Adverse Reactions, Alerts No Known Medication [...] 12/31/22 7:50:00 EDT, Route to Pharmacy Electronically, [facility] #[id number], Partial fill upon patient request if the prescription is f... Start Date: 12/31/22 Status: Ordered diclofenac sodium 75 mg oral delayed release tablet See Instructions, TAKE 1 TABLET BY MOUTH TWICE DAILY WITH FOOD DIRECTED, # 60 tablet, 1 Refills,12/16/22 0:00:00 EDT, [facility] #[id number], 176.8, cm, 12/09/22 9:21:00 EDT, Height, 127.4, kg, 05/17/22 4:58:00 EST, Dry Weight Start Date: 12/16/22 Status: Ordered EpiPen 2-Michael 0.3 mg injectable kit = 0.3 mg, Intramuscular, Once, PRN severe allergic reaction, may repeat if necessary, # 2 each, 0 Refills, Soft Stop, 11/06/20 13:52:00 EDT, [facility] #[id number], 176.8, cm, 11/06/20 13:38:00 EDT, Height, 140.3, kg, 11/06/20 13:38:00 EDT, Dry W... Start Date: 11/06/20 Status: Ordered hydrOXYzine hydrochloride 50 mg oral tablet 1 tablet = 50 mg, By Mouth, 3 times a day, # 60 tablet, 1 Refills, Maintenance, 12/16/22 12:01:00 EDT, [facility] #[id number], 176.8, cm, 12/09/22 9:21:00 EDT, Height, 127.4, kg, 05/17/22 4:58:00 EST, Dry Weight Start Date: 12/16/22 Status: Ordered ibuprofen 800 mg oral tablet 1, tablet, By Mouth, 3 times a day, PRN, TAKE WITH FOOD OR MILK., # 90 tablet, Refills 5, Tot. Refills 5, Maintenance, NEEDED FOR PAIN(, 08/27/22 20:18:00 EDT, Route to Pharmacy Electronically, [facility] #[id number], 176.8, cm, 05/01/22 13:41... Start Date: 08/27/22 Status: Ordered losartan 50 mg oral tablet 1 tablet, By Mouth, Daily, # 90 tablet, 1 Refills, Maintenance, 11/28/22 21:33:00 EDT, [facility] #[id number], 176.8, cm, 11/05/22 11:22:00 EDT, Height, 127.4, kg, 05/17/22 4:58:00 EST, Dry Weight Start Date: 11/28/22 Status: Ordered mupirocin 2% topical ointment 1 application, Topically, 3 times a day, for 14 days, # 22 Gm, 3 Refills, Acute 01/20/23 16:10:00 EDT, 11/25/22 16:10:00 EDT, Ointment, [facility] #[id number], Partial fill upon patient request if the [...] 01/07/23 14:25:00 EDT, Route to Pharmacy Electronically, [facility] #[id number], P... Start Date: 01/07/23 Stop Date: 01/22/23 Status: Ordered oxyCODONE 5 mg oral tablet 5 mg, 1, tablet, By Mouth, Every 8 hours, Was only able to get partial fill (16 tablets) from [facility]; mass pat [place], # 29 tablet, Refills [...] 01/07/23 7:30:00 EDT, Route to Pharmacy Electronically, [facility] #[id number], Partial fill upon patient request if t... Start Date: 01/07/23 Stop Date: 01/26/23 Status: Ordered predniSONE 20 mg oral tablet See Instructions, 2 tablets By Mouth Daily for 5 days and then 1 tablet by mouth daily for 5 days, # 15 tablet, 0 Refills, Soft Stop, 01/08/23 16:53:00 EDT, Tablet, [facility] #[id number], Partial fill upon patient request if the prescription is... Start Date: 01/08/23 Status: Ordered ProAir HFA 90 mcg/inh inhalation aerosol with adapter 2, puffs, Inhalation, Every 6 hours, PRN, # 8.5 Gm, Refills 5, Tot. Refills 5, 04/09/22 15:33:00 EST, Route to Pharmacy Electronically, [id number], [facility] #[id number], 176.8, cm, 02/28/22 10:47:00 EDT, Height, 123.4,... Start Date: 04/09/22 Status: Ordered Ventolin HFA 108 mcg/inh inhalation aerosol with adapter 2 puffs, Inhalation, Every 6 hours, # 8.5 Gm, 6 Refills, Maintenance, 12/23/22 11:39:00 EDT, [facility] #[id number], 176.8, cm, 12/23/22 11:25:00 EDT, Height, 127.4, [...] Care Member Role: PCP Address: Address: [address] [place] [address] Name: Bhumika Castillo RN Position: [facility] SN RN Member Role: Primary Care Nurse Name: Jaja Arshad RN Position: [facility] RN Member Role: Primary Care Nurse Name: Ludwin Butcher RN Position: [facility] RN Member Role: Primary Care Nurse Care Team Related Persons Name: GARRETT FUENTES Address: home [address] [place] [address] Name: MARLO REINOSO Name: PT STS, NONE Name: EFFIE RICKETTS Name: RANDALL RICKETTS
--- OUTSIDE RECORDS SUMMARY | 2023-09-25 00:36 | XMS_ITS | Continuity of Care Document ---
Author Organization [facility] Address [address] [place] [id number]- Care Team Providers Care Social Work Coordinator Name Role Phone Ab FRAGA, Margarito Dolan Primary Care Physician [place] [facility] [place] - 12/24/[address] [address]- Attending Physician: Lona Post Admitting Physician: AdmLona [...] 6 Refills, Maintenance, 11/08/20 9:05:00 EDT, Powder, [facility] #[id number], Partial fill upon patient request if the prescription is for a schedule II opioid drug., 2 puffs Inhalation... Start Date: 11/08/20 Status: Ordered EpiPen 2-Michael 0.3 mg injectable kit = 0.3 mg, Intramuscular, Once, PRN severe allergic reaction, may repeat if necessary, # 2 each, 0 Refills, Soft Stop, 11/06/20 13:52:00 EDT, [facility] #[id number], 176.8, cm, 11/06/20 13:38:00 EDT, Height, 140.3, kg, 11/06/20 13:38:00 EDT, Dry W... Start Date: 11/06/20 Status: Ordered ibuprofen 800 mg oral tablet 800 mg, 1, tablet, By Mouth, 3 times a day, PRN, with food or milk, # 90 tablet, Refills 5, Tot. Refills 5, Maintenance, as needed for pain, 11/06/20 13:53:00 EDT, Route to Pharmacy Electronically, [facility] #[id number], 176.8, cm, 11/06/20 13:3... Start Date: 11/06/20 Status: Ordered losartan 50 mg oral tablet 50 mg, 1, tablet, By Mouth, Daily, # 30 tablet, Refills 3, Tot. Refills 3, Maintenance, 11/22/20 14:41:00 EDT, Route to Pharmacy Electronically, [facility] #[id number], Partial fill upon patientrequest if the prescription [...]
--- OUTSIDE RECORDS SUMMARY | 2023-09-25 00:36 | XMS_ITS | Continuity of Care Document ---
Author Organization [facility] Address [address] [place] [address]- Care Team Providers Care Cooking Show Host Name Role Phone Ab FRAGA, Margarito Dolan Primary Care Physician Encounter [facility] [place] Date(s): 07/21/23 - 08/20/23 [facility] [address] [place] [address]- Allergies, Adverse Reactions, Alerts No Known Medication [...] tablet, 0 Refills, Maintenance, 05/28/23 8:20:00 EST, [facility] #[id number], 176.8, cm, 04/30/23 7:39:00 EST, Height, 127.4, kg, 05/17/22 4:58:00 EST, Dry Weight Start Date: 05/28/23 Stop Date: 06/07/23 Status: Ordered cyclobenzaprine 10 mg oral tablet 1, tablet, By Mouth, 3 times a day, PRN, # 60 tablet, Refills 0, Maintenance, NEEDED FOR SPASMS,08/18/23 12:16:00 EDT, Route to Pharmacy Electronically, [facility] #[id number], 176.8, cm, 04/30/23 7:39:00 EST, Height, 127.4, kg, 05/17/22 4:58... Start Date: 08/18/23 Status: Ordered diclofenac sodium 75 mg oral delayed release tablet 1 tablet, By Mouth, 2 times a day with meals, DIRECTED., # 60 tablet, 5 Refills, Maintenance, 07/01/23 20:55:00 EST, [facility] #[id number], 176.8, cm, 04/30/23 7:39:00 EST, Height, 127.4, kg, 05/17/22 4:58:00 EST, Dry Weight Start Date: 07/01/23 Status: Ordered doxycycline hyclate 100 mg oral tablet 1 tablet, By Mouth, 2 times a day, # 28 tablet, 0 Refills, Maintenance, 07/16/23 17:07:00 EDT, [facility] #[id number], 176.8, cm, 04/30/23 7:39:00 EST, Height, 127.4, kg, 05/17/22 4:58:00 EST, Dry Weight Start Date: 07/16/23 Stop Date: 07/30/23 Status: Ordered EpiPen 2-Michael 0.3 mg injectable kit = 0.3 mg, Intramuscular, Once, PRN severe allergic reaction, may repeat if necessary, # 2 each, 0 Refills, Soft Stop, 01/24/23 12:05:00 EDT, [facility] #[id number], 176.8, cm, 01/24/23 10:59:00 EDT, Height, 127.4, kg, 05/17/22 4:58:00 EST, Dry We... Start Date: 01/24/23 Status: Ordered hydrOXYzine hydrochloride 50 mg oral tablet 1 tablet = 50 mg, By Mouth, 3 times a day, PRN as needed for itching, # 90 tablet, 1 Refills, Maintenance, 06/18/23 13:07:00 EST, [facility] #[id number], 176.8, cm, 04/30/23 7:39:00 EST, Height,127.4, kg, 05/17/22 4:58:00 EST, Dry Weight Start Date: 06/18/23 Status: Ordered hydrOXYzine hydrochloride 50 mg oral tablet 1 tablet = 50 mg, By Mouth, 3 times a day, # 90 tablet, 1 Refills, Maintenance, 04/25/23 11:23:00 EST, [facility] #[id number], 176.8, cm, 01/24/23 10:59:00 EDT, Height, 127.4, kg, 05/17/22 4:58:00 EST, Dry Weight Start Date: 04/25/23 Status: Ordered losartan 50 mg oral tablet 1 tablet, By Mouth, Daily, # 90 tablet, 1 Refills, Maintenance, 06/05/23 18:32:00 EST, [facility] #[id number], 176.8, cm, 04/30/23 7:39:00 EST, Height, 127.4, kg, 05/17/22 4:58:00 EST, Dry Weight Start Date: 06/05/23 Status: Ordered metFORMIN 750 mg oral tablet, extended release 1 tablet = 750 mg, By Mouth, Daily, # 90 tablet, 1 Refills, Maintenance, 05/19/23 11:12:00 EST, ER Tablet, [facility] #[id number], Partial fill upon patient request if the prescription is for a schedule II opioid drug., 176.8, cm, 04/30/23 7:39:0... Start Date: 05/19/23 Status: Ordered mupirocin 2% topical ointment See Instructions, APPLY TOPICALLY TO THE AFFECTED AREA THREE TIMES DAILY FOR 14 DAYS, # 22 Gm, 0 Refills, Maintenance, 06/03/23 13:22:00 EST, [facility] #[id number], APPLY TOPICALLY TO THE AFFECTED AREA THREE [...] 08/11/23 7:36:00 EDT, Route to Pharmacy Electronically, [facility] Start Date: 08/11/23 Stop Date: 08/26/23 Status: Ordered predniSONE 20 mg oral tablet See Instructions, 2 tablets By Mouth Daily for 5 days and then 1 tablet by mouth daily for 5 days, # 15 tablet, 0 Refills, Soft Stop, 01/08/23 16:53:00 EDT, Tablet, [facility] #[id number], Partial fill upon patient request if the prescription is... Start Date: 01/08/23 Status: Ordered triamcinolone 0.025% topical ointment 1 application, Topically, 3 times a day, Apply to affected area, # 15 Gm, 1 Refills, Maintenance, 06/03/23 9:33:00 EST, Ointment, [facility] #[id number], Partial fill upon patient request if theprescription is for a schedule II opioid drug., 1 a... Start Date: 06/03/23 Status: Ordered Ventolin HFA 108 mcg/inh inhalation aerosol with adapter 2 puffs, Inhalation, Every 6 hours, # 18 Gm, 5 Refills, Maintenance, 05/25/23 6:11:00 EST, [facility] #[id number], 176.8, cm, 04/30/23 7:39:00 EST, Height, 127.4, [...] Name: Margarito Berger MD Position: [facility] Physician - Primary Care Member Role: PCP Address: Address: [address] [place] [id number] Name: Bhumika Castillo RN Position: [facility] RN Member Role: Primary Care Nurse Name: Jaja Arshad RN Position: [facility] RN Member Role: Primary Care Nurse Name: Ludwin Butcher RN Position: S RN Member Role: Primary Care Nurse Care Team Related Persons Name: GARRETT FUENTES Address: home [address] [place] [address] Name: MARLO REINOSO Name: PT STS, NONE Name: EFFIE RICKETTS Name: RANDALL RICKETTS
--- OUTSIDE RECORDS SUMMARY | 2023-09-25 00:36 | XMS_ITS | Continuity of Care Document ---
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 Start Date: 04/30/23 Stop Date: 05/10/23 Status: Ordered cyclobenzaprine 10 mg oral tablet 10 mg, 1, tablet, By Mouth, 3 times a day, PRN spasms, # 60 tablet, Refills 0, Tot. Refills 0, Maintenance, 05/02/23 11:36:00 EST, Route to Pharmacy Electronically, [facility] #[id number], Partial fill upon patient request if the prescription is... Start Date: 05/02/23 Status: Ordered diclofenac sodium 75 mg oral delayed release tablet 1 tablet, By Mouth, 2 times a day with meals, DIRECTED., # 60 tablet, 1 Refills, Maintenance, 05/04/23 6:22:00 EST, [facility] #[id number], 176.8, cm, 04/30/23 7:39:00 EST, Height, 127.4, kg,05/17/22 4:58:00 EST, Dry Weight Start Date: 05/04/23 Status: Ordered doxycycline hyclate 100 mg oral tablet See Instructions, TAKE 1 TABLET BY MOUTH TWICE DAILY FOR 14 DAYS, # 28 tablet, 0 Refills, Maintenance, 04/10/23 14:15:00 EST, [facility] #[id number], 176.8, cm, 01/24/23 10:59:00 EDT, Height, 127.4, kg, 05/17/22 4:58:00 EST, Dry Weight Start Date: 04/10/23 Status: Ordered EpiPen 2-Michael 0.3 mg injectable kit = 0.3 mg, Intramuscular, Once, PRN severe allergic reaction, may repeat if necessary, # 2 each, 0 Refills, Soft Stop, 01/24/23 12:05:00 EDT, [facility] #[id number], 176.8, cm, 01/24/23 10:59:00 EDT, Height, 127.4, kg, 05/17/22 4:58:00 EST, Dry We... Start Date: 01/24/23 Status: Ordered hydrOXYzine hydrochloride 50 mg oral tablet 1 tablet = 50 mg, By Mouth, 3 times a day, # 90 tablet, 1 Refills, Maintenance, 04/25/23 11:23:00 EST, [facility] #[id number], 176.8, cm, 01/24/23 10:59:00 EDT, Height, 127.4, kg, 05/17/22 4:58:00 EST, Dry Weight Start Date: 04/25/23 Status: Ordered hydrOXYzine hydrochloride 50 mg oral tablet See Instructions, TAKE 1 TABLET BY MOUTH THREE TIMES DAILY, # 90 tablet, 0 Refills, Maintenance, 04/25/23 14:10:00 EST, [facility] #[id number], 176.8, cm, 01/24/23 10:59:00 EDT, Height, 127.4, kg, 05/17/22 4:58:00 EST, Dry Weight Start Date: 04/25/23 Status: Ordered losartan 50 mg oral tablet 1 tablet, By Mouth, Daily, # 90 tablet, 1 Refills, Maintenance, 11/28/22 21:33:00 EDT, [facility] #[id number], 176.8, cm, 11/05/22 11:22:00 EDT, Height, 127.4, kg, 05/17/22 4:58:00 EST, Dry Weight Start Date: 11/28/22 Status: Ordered mupirocin 2% topical ointment See Instructions, APPLY TOPICALLY TO THE AFFECTED AREA THREE TIMES DAILY FOR 14 DAYS, # 22 Gm, 0 Refills, Maintenance, 03/27/23 8:33:00 EST, [facility] #[id number], 10, APPLY TOPICALLY TO THE AFFECTED AREA THREE TIMES DAILY FOR 14 DAYS, 176.8, cm... Start Date: 03/27/23 Status: Ordered oxyCODONE 5 mg oral tablet 5 mg, 1, tablet, By Mouth, Every 8 hours, PRN, for 15 days, mass pat ok, ok for less. TAKE ONLY NEEDED, # 45 tablet, Refills 0, Tot. Refills 0, Hard Stop 05/10/23 11:23:00 EST, Pain , Moderate, 04/25/23 11:23:00 EST, Route to Pharmacy [facility]... Start Date: 04/25/23 Stop Date: 05/10/23 Status: Ordered oxyCODONE 5 mg oral tablet 5 mg, 1, tablet, By Mouth, Every 8 hours, PRN, mass pat ok, ok for less. TAKE ONLY NEEDED, # 45 tablet, Refills 0, Tot. Refills 0, Maintenance, Pain , Moderate, 05/08/23 14:26:00 EST, Route to Pharmacy Electronically, [facility] #[id number], P... Start Date: 05/08/23 Stop Date: 05/23/23 Status: Ordered predniSONE 20 mg oral tablet See Instructions, 2 tablets By Mouth Daily for 5 days and then 1 tablet by mouth daily for 5 days, # 15 tablet, 0 Refills, Soft Stop, 01/08/23 16:53:00 EDT, Tablet, [facility] #[id number], Partial fill upon patient request if the prescription is... Start Date: 01/08/23 Status: Ordered Ventolin HFA 108 mcg/inh inhalation aerosol with adapter 2 puffs, Inhalation, Every 6 hours, # 8.5 Gm, 6 Refills, Maintenance, 12/23/22 11:39:00 EDT, [facility] #[id number], 176.8, cm, 12/23/22 11:25:00 EDT, Height, 127.4, [...] Team Personnel Name: Margarito Berger MD Position: [facility] Physician - Primary Care Member Role: PCP Address: Address: [address] [place] [id number] Name: Bhumika Castillo RN Position: [facility] RN Member Role: Primary Care Nurse Name: Jaja Arshad RN Position: S RN Member Role: Primary Care Nurse Name: Ludwin Butcher RN Position: [facility] RN Member Role: Primary Care Nurse Care Team Related Persons Name: GARRETT FUENTES Address: home [address] [place] [address] Name: MARLO REINOSO Name: PT STS, NONE Name: EFFIE RICKETST Name: RANDALL RICKETTS
--- OUTSIDE RECORDS SUMMARY | 2023-09-25 00:36 | XMS_ITS | Continuity of Care Document ---
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 Start Date: 10/02/22 Status: Ordered doxycycline hyclate 100 mg oral tablet 1 tablet = 100 mg, By Mouth, 2 times a day, for 14 days, # 28 tablet, 0 Refills, Acute 10/25/22 16:56:00 EDT, 10/11/22 16:56:00 EDT, Tablet, [facility] #[id number], Partial fill upon patient request if the prescription is for a schedule II opioid... Start Date: 10/11/22 Stop Date: 10/25/22 Status: Ordered EpiPen 2-Michael 0.3 mg injectable kit = 0.3 mg, Intramuscular, Once, PRN severe allergic reaction, may repeat if necessary, # 2 each, 0 Refills, Soft Stop, 11/06/20 13:52:00 EDT, [facility] #[id number], 176.8, cm, 11/06/20 13:38:00 EDT, Height, 140.3, kg, 11/06/20 13:38:00 EDT, Dry W... Start Date: 11/06/20 Status: Ordered hydrOXYzine hydrochloride 50 mg oral tablet 1 tablet = 50 mg, By Mouth, 3 times a day, # 60 tablet, 1 Refills, Maintenance, 09/09/22 9:32:00 EDT, [facility] #[id number], 176.8, cm, 09/02/22 16:24:00 EDT, Height, 127.4, kg, 05/17/22 4:58:00 EST, Dry Weight Start Date: 09/09/22 Status: Ordered hydrOXYzine hydrochloride 50 mg oral tablet See Instructions, TAKE 1 TABLET BY MOUTH FOUR TIMES DAILY FOR 12 DAYS NEEDED FOR ANXIETY, # 48 tablet, 0 Refills, Maintenance, 06/14/22 15:46:00 EST, [facility] #50031, 176.8, cm, 05/01/22 13:41:00 EST, Height, 127.4, kg, 05/17/22 4:58:00... Start Date: 06/14/22 Status: Ordered hydrOXYzine hydrochloride 50 mg oral tablet See Instructions, TAKE 1 TABLET BY MOUTH FOUR TIMES DAILY FOR 12 DAYS NEEDED FOR ANXIETY, # 48 tablet, 0 Refills, Maintenance, 07/01/22 17:28:00 EST, [facility] #[id number], 176.8, cm, 05/01/22 13:41:00 EST, Height, 127.4, [...] 08/27/22 20:18:00 EDT, Route to Pharmacy Electronically, [facility] #[id number], 176.8, cm, 05/01/22 13:41... Start Date: 08/27/22 [...] tablet, 1 Refills, Maintenance, 06/03/22 11:27:00 EST, [facility] #[id number], 176.8, cm, 05/01/22 13:41:00 EST, Height, 127.4, [...] 10/09/22 7:14:00 EDT, Route to Pharmacy Electronically, [facility] #[id number], Pa... Start Date: 10/09/22 Stop Date: 10/24/22 [...] 04/09/22 15:33:00 EST, Route to Pharmacy Electronically, [id number], [facility] #[id number], 176.8, cm, 02/28/22 10:47:00 EDT, Height, 123.4,... [...] 12/06/22 16:54:00 EDT, 10/11/22 16:54:00 EDT, Ointment, [facility] #07712, Partial fill upon patient request if the [...] сергей Service Informant Skin lesion Discharge Diagnosis 10/11/22 Vital Signs Most recent to oldest [Reference Range]: 1 Height 176.8 cm (10/11/22 4:37 PM) Weight 127 kg (10/11/22 4:37 PM) Oxygen Saturation [94-100 %] 100 % (10/11/22 4:37 PM) Pulse Rate [55-90 bpm] 96 bpm *H* (10/11/22 4:37 PM) Body Mass Index [18.5-24.99 kg/m2] 40.63 kg/m2 *>HHI* (10/11/22 4:37 PM) Blood Pressure [90-138/55-84 mm Hg] 134/ 84mm Hg (10/11/22 4:37 PM) Respiratory Rate [16-30 br/min] 16 br/mi n (10/11/22 4:37 PM) Blood pressure sites Arm, left (10/11/22 4:37 PM) Weight Obtained Via Standing scale (10/11/22 4:37 PM) Social History Social History Type Response Smoking Status 5-9 cigarettes (betw een 1/4 to 1/2 pack)/day in last 30 days; Tobacco use times per day: 7; entered on: 12/31/18 Sex Note * Agustina Reyna: PERFORM, SIGN, VERIFY Event Display: Patient Education/Instruction Authored Date: [id number] [facility] *[facility] Clinical Summary Name EDD RICKETTS Age 47 Years 1975 PCP [id number] Date 10/11/2022 16:25:00 Additional Instructions: Scheduled Appointments?? Future Appointments ?*[facility] ?[address]??[place],??[place],??[address] ?Phone:??--?Fax:??-- ?Appt. Date:??12/04/2022?3:00 PM ?Scheduled Provider:??Margarito Berger MD Follow-Up Instructions ?? Diagnosis Disorder of the skin and subcutaneous tissue, unspecified Medications: Please continue your medications until treatment is completed or stopped by your provider. Discuss any questions related to medications with your provider. New Medications [facility] #[id number], [address], [place] [id number], [phone] Doxycycline (doxycycline hyclate 100 mg oral tablet) 1 tab(s) Oral twice a day for 14 Days. Refills: 0. Next Dose: Triamcinolone Topical (triamcinolone 0.025% topical ointment) 1 hoa Topically twice a day for 14 Days. Refills: 3. Next Dose: Medications to Continue with No [...] orders Vital Signs Height 176.8 cm Weight 127 kg BMI 40.63 kg/m2 Blood Pressure 134 mm Hg/84 mm Hg Temperature Pulse Rate 96 bpm Respiratory Rate 16 br/min 02 Sat Mode of Delivery 100 %/ You can now view a summary of your hospital visit from the comfort of your home through a free online portal called [employer]. [employer] is a website that allows you to securely view your medical information including discharge summary, medications and follow-up visits. ??You can alsosend a secure electronic message to your doctor???s office to request appointments, renew medications or just ask a question. You can enroll at [email or web address] or register during your next office visit. [...] primary care provider, you may find a [facility] provider by calling [facility] at [phone]. For information about the plan of care [...] Team Personnel Name: Margarito Berger MD Position: [facility] Physician - Primary Care Member Role: PCP Address: Address: [address] [place] [id number] Name: Bhumika Castillo RN Position: [facility] RN Member Role: Primary Care Nurse Name: Jaja Arshad RN Position: S RN Member Role: Primary Care Nurse Name: Ludwin Butcher RN Position: S RN Member Role: Primary Care Nurse Care Team Related Persons Name: GARRETT FUENTES Address: home [address] [place] [address] Name: MARLO REINOSO Name: PT STS, NONE Name: EFFIE RICKETTS Name: RANDALL RICKETTS
--- OUTSIDE RECORDS SUMMARY | 2023-09-25 00:36 | XMS_ITS | Continuity of Care Document ---
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 Start Date: 09/10/23 Status: Ordered cyclobenzaprine 10 mg oral tablet 1, tablet, By Mouth, 3 times a day, PRN, # 270 tablet, Refills 1, Tot. Refills 1, Maintenance, NEEDED FOR SPASMS, 09/10/23 11:17:00 EDT, Route to Pharmacy Electronically, [facility] #[id number], 176.8, cm, 09/10/23 10:40:00 EDT, Height, 127.4,... Start Date: 09/10/23 Stop Date: 03/08/24 Status: Ordered diclofenac sodium 75 mg oral delayed release tablet 1 tablet, By Mouth, 2 times a day with meals, DIRECTED., # 60 tablet, 5 Refills, Maintenance, 07/01/23 20:55:00 EST, [facility] #[id number], 176.8, cm, 04/30/23 7:39:00 EST, Height, 127.4, kg, 05/17/22 4:58:00 EST, Dry Weight Start Date: 07/01/23 Status: Ordered EpiPen 2-Michael 0.3 mg injectable kit = 0.3 mg, Intramuscular, Once, PRN severe allergic reaction, may repeat if necessary, # 2 each, 0 Refills, Soft Stop, 01/24/23 12:05:00 EDT, [facility] #[id number], 176.8, cm, 01/24/23 10:59:00 EDT, Height, 127.4, kg, 05/17/22 4:58:00 EST, Dry We... Start Date: 01/24/23 Status: Ordered losartan 50 mg oral tablet 1 tablet, By Mouth, Daily, # 90 tablet, 1 Refills, Maintenance, 06/05/23 18:32:00 EST, [facility] #[id number], 176.8, cm, 04/30/23 7:39:00 EST, Height, 127.4, kg, 05/17/22 4:58:00 EST, Dry Weight Start Date: 06/05/23 Status: Ordered oxyCODONE 5 mg oral tablet 5 mg, 1, tablet, By Mouth, Every 8 hours, PRN, mass pat ok, ok for less. TAKE ONLY NEEDED DNF 09/09/2023, # 45 tablet, Refills 0, Tot. Refills 0, Maintenance, Pain , Moderate, 09/07/23 14:05:00 EDT, Route to Pharmacy Electronically, [facility] Start Date: 09/07/23 Stop Date: 09/22/23 Status: Ordered Ventolin HFA 108 mcg/inh inhalation aerosol with adapter 2 puffs, Inhalation, Every 6 hours, # 18 Gm, 5 Refills, Maintenance, 05/25/23 6:11:00 EST, [facility] #[id number], 176.8, cm, 04/30/23 7:39:00 EST, Height, 127.4, [...] MD Position: [facility] Physician - Primary Care Member Role: PCP Address: Address: [address] [place] [address] Name: Bhumika Castillo RN Position: [facility] SN RN Member Role: Primary Care Nurse Name: Jaja Arshad RN Position: S RN Member Role: Primary Care Nurse Name: Ludwin Butcher RN Position: [facility] RN Member Role: Primary Care Nurse Care Team Related Persons Name: GARRETT FUENTES Address: home [address] [place] [id number] Name: MARLO REINOSO Name: PT STS, NONE Name: EFFIE RICKETTS Name: RANDALL RICKETTS
--- OUTSIDE RECORDS SUMMARY | 2023-09-25 00:36 | XMS_ITS | Continuity of Care Document ---
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 Start Date: 05/18/22 Stop Date: 06/01/22 Status: Ordered EpiPen 2-Michael 0.3 mg injectable kit = 0.3 mg, Intramuscular, Once, PRN severe allergic reaction, may repeat if necessary, # 2 each, 0 Refills, Soft Stop, 11/06/20 13:52:00 EDT, [facility] #[id number], 176.8, cm, 11/06/20 13:38:00 EDT, Height, 140.3, [...] tablet, 3 Refills, Maintenance, 05/20/22 11:48:00 EST, [facility] #[id number], 176.8, cm, 05/01/22 13:41:00 EST, Height, 127.4, [...] 04/09/22 15:33:00 EST, Route to Pharmacy Electronically, [id number], [facility] #[id number], 176.8, cm, 02/28/22 10:47:00 EDT, Height, 123.4,... [...] Name: Margarito Berger MD Position: [facility] Primary Care Physician Member Role: PCP Address: Address: [address] [place] [address] Name: Bhumika Castillo RN Position: [facility] SN RN Member Role: Primary Care Nurse Name: Jaja Arshad RN Position: [facility] RN Member Role: Primary Care Nurse Name: Ludwin Butcher RN Position: [facility] RN Member Role: Primary Care Nurse Care Team Related Persons Name: GARRETT FUENTES Address: home [address] [place] [id number] Name: MARLO REINOSO Name: PT STS, NONE Name: EFFIE RICKETTS Name: RANDALL RICKETTS
--- OUTSIDE RECORDS SUMMARY | 2023-09-25 00:36 | XMS_ITS | Continuity of Care Document ---
Author Organization [facility] Address [address] [place] [address]- Care Team Providers Care Allergy And Immunology Specialist Name Role Phone Margarito Berger MD Primary Care Physician [place] [facility] [place]/23 [facility] [address] [place] [address]- Allergies, Adverse Reactions, Alerts No Known Medication [...] tablet, 0 Refills, Maintenance, 05/28/23 8:20:00 EST, [facility] #[id number], 176.8, cm, 04/30/23 7:39:00 EST, Height, 127.4, kg, 05/17/22 4:58:00 EST, Dry Weight Start Date: 05/28/23 Stop Date: 06/07/23 Status: Ordered cyclobenzaprine 10 mg oral tablet 1, tablet, By Mouth, 3 times a day, PRN, # 60 tablet, Refills 1, Maintenance, NEEDED FOR SPASMS,05/28/23 8:20:00 EST, Route to Pharmacy Electronically, [facility] #[id number], 176.8, cm, 04/30/23 7:39:00 EST, Height, 127.4, kg, 05/17/22 4:58:... Start Date: 05/28/23 Status: Ordered diclofenac sodium 75 mg oral delayed release tablet 1 tablet, By Mouth, 2 times a day with meals, DIRECTED., # 60 tablet, 1 Refills, Maintenance, 05/04/23 6:22:00 EST, [facility] #[id number], 176.8, cm, 04/30/23 7:39:00 EST, Height, 127.4, kg,05/17/22 4:58:00 EST, Dry Weight Start Date: 05/04/23 Status: Ordered doxycycline hyclate 100 mg oral tablet 1 tablet, By Mouth, 2 times a day, # 28 tablet, 0 Refills, Maintenance, 05/28/23 8:20:00 EST, [facility] #[id number], 176.8, cm, 04/30/23 7:39:00 EST, Height, 127.4, kg, 05/17/22 4:58:00 EST, Dry Weight Start Date: 05/28/23 Stop Date: 06/11/23 Status: Ordered EpiPen 2-Michael 0.3 mg injectable kit = 0.3 mg, Intramuscular, Once, PRN severe allergic reaction, may repeat if necessary, # 2 each, 0 Refills, Soft Stop, 01/24/23 12:05:00 EDT, [facility] #[id number], 176.8, cm, 01/24/23 10:59:00 EDT, Height, 127.4, kg, 05/17/22 4:58:00 EST, Dry We... Start Date: 01/24/23 Status: Ordered hydrOXYzine hydrochloride 50 mg oral tablet 1 tablet = 50 mg, By Mouth, 3 times a day, # 90 tablet, 1 Refills, Maintenance, 04/25/23 11:23:00 EST, [facility] #[id number], 176.8, cm, 01/24/23 10:59:00 EDT, Height, 127.4, kg, 05/17/22 4:58:00 EST, Dry Weight Start Date: 04/25/23 Status: Ordered hydrOXYzine hydrochloride 50 mg oral tablet See Instructions, TAKE 1 TABLET BY MOUTH THREE TIMES DAILY, # 90 tablet, 0 Refills, Maintenance, 04/25/23 14:10:00 EST, [facility] #[id number], 176.8, cm, 01/24/23 10:59:00 EDT, Height, 127.4, kg, 05/17/22 4:58:00 EST, Dry Weight Start Date: 04/25/23 Status: Ordered losartan 50 mg oral tablet 1 tablet, By Mouth, Daily, # 90 tablet, 1 Refills, Maintenance, 11/28/22 21:33:00 EDT, [facility] #[id number], 176.8, cm, 11/05/22 11:22:00 EDT, Height, 127.4, kg, 05/17/22 4:58:00 EST, Dry Weight Start Date: 11/28/22 Status: Ordered metFORMIN 750 mg oral tablet, extended release 1 tablet = 750 mg, By Mouth, Daily, # 90 tablet, 1 Refills, Maintenance, 05/19/23 11:12:00 EST, ER Tablet, [facility] #[id number], Partial fill upon patient request if the prescription is for a schedule II opioid drug., 176.8, cm, 04/30/23 7:39:0... Start Date: 05/19/23 Status: Ordered mupirocin 2% topical ointment See Instructions, APPLY TOPICALLY TO THE AFFECTED AREA THREE TIMES DAILY FOR 14 DAYS, # 22 Gm, 0 Refills, Maintenance, 03/27/23 8:33:00 EST, [facility] #[id number], 10, APPLY TOPICALLY TO THE AFFECTED AREA [...] 05/21/23 12:42:00 EST, Route to Pharmacy Electronically, [facility] Start Date: 05/21/23 Stop Date: 06/05/23 Status: Ordered predniSONE 20 mg oral tablet See Instructions, 2 tablets By Mouth Daily for 5 days and then 1 tablet by mouth daily for 5 days, # 15 tablet, 0 Refills, Soft Stop, 01/08/23 16:53:00 EDT, Tablet, [facility] #[id number], Partial fill upon patient request if the prescription is... Start Date: 01/08/23 Status: Ordered Ventolin HFA 108 mcg/inh inhalation aerosol with adapter 2 puffs, Inhalation, Every 6 hours, # 18 Gm, 5 Refills, Maintenance, 05/25/23 6:11:00 EST, [facility] #[id number], 176.8, cm, 04/30/23 7:39:00 EST, Height, 127.4, [...] Team Personnel Name: Margarito Berger MD Position: [facility] Physician - Primary Care Member Role: PCP Address: Address: [address] [place] [id number] Name: Bhumika Castillo RN Position: [facility] SN RN Member Role: Primary Care Nurse Name: Jaja Arshad RN Position: S RN Member Role: Primary Care Nurse Name: Ludwin Butcher RN Position: [facility] RN Member Role: Primary Care Nurse Care Team Related Persons Name: GARRETT FUENTES Address: home [address] [place] [address] Name: MARLO REINOSO Name: PT STS, NONE Name: EFFIE RICKETTS Name: RANDALL RICKETTS
--- OUTSIDE RECORDS SUMMARY | 2023-09-25 00:36 | XMS_ITS | Continuity of Care Document ---
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 Start Date: 01/24/22 Status: Ordered EpiPen 2-Michael 0.3 mg injectable kit = 0.3 mg, Intramuscular, Once, PRN severe allergic reaction, may repeat if necessary, # 2 each, 0 Refills, Soft Stop, 11/06/20 13:52:00 EDT, [facility] #[id number], 176.8, cm, 11/06/20 13:38:00 EDT, Height, 140.3, kg, 11/06/20 13:38:00 EDT, Dry W... Start Date: 11/06/20 Status: Ordered hydrOXYzine hydrochloride 50 mg oral tablet See Instructions, TAKE 1 TABLET BY MOUTH FOUR TIMES DAILY FOR 12 DAYS NEEDED FOR ANXIETY, # 48 tablet, 0 Refills, Maintenance, 01/15/22 17:07:00 EDT, [facility] #[id number], 176.8, cm, 01/04/22 15:55:00 EDT, Height, 123.4, kg, 10/12/21 15:16:0... Start Date: 01/15/22 Status: Ordered hydrOXYzine hydrochloride 50 mg oral tablet See Instructions, TAKE 1 TABLET BY MOUTH FOUR TIMES DAILY FOR 12 DAYS NEEDED FOR ANXIETY, # 48 tablet, 0 Refills, Maintenance, 01/15/22 17:12:00 EDT, [facility] #[id number], 176.8, cm, 01/04/22 15:55:00 EDT, Height, 123.4, kg, 10/12/21 15:16:0... Start Date: 01/15/22 Status: Ordered ibuprofen 800 mg oral tablet 1, tablet, By Mouth, 3 times a day, PRN, TAKE WITH FOOD OR MILK., # 90 tablet, Refills 5, Maintenance, NEEDED FOR PAIN(, 01/04/22 10:09:00 EDT, Route to Pharmacy Electronically, [facility] #[id number], 176.8, cm, 12/14/21 16:29:00 EDT, Height,... Start [...] Mouth, Daily, # 30 tablet, 5 Refills, [facility] #[id number], 176.8, cm, 11/05/2214:43:00 EDT, Height, 123.4, kg, 10/12/21 15:16:00 EDT, Dry Weight Start Date: 11/13/21 Status: Ordered magnesium oxide 250 mg oral tablet See Instructions, TAKE 1 TABLET BY MOUTH DAILY AT BEDTIME FOR 14 DAYS, # 14 tablet, 0 Refills, Maintenance, 02/08/22 13:01:00 EDT, [facility] #[id number], 176.8, cm, 01/04/22 15:55:00 EDT, Height, 123.4, kg, 10/12/21 15:16:00 EDT, Dry Weight Start Date: 02/08/22 Status: Ordered magnesium oxide 250 mg oral tablet See Instructions, TAKE 1 TABLET BY MOUTH DAILY AT BEDTIME FOR 14 DAYS, # 14 tablet, 0 Refills, Maintenance, 01/04/22 15:54:00 EDT, [facility] #[id number], 176.8, cm, 12/14/21 16:29:00 EDT, Height, 123.4, kg, 10/12/21 15:16:00 EDT, Dry Weight Start Date: 01/04/22 Status: Ordered metFORMIN 750 mg oral tablet, extended release 1 tablet, By Mouth, Daily, # 60 tablet, 5 Refills, [facility] #[id number], 176.8, cm, 02/02/2116:07:00 EDT, Height, 140.3, kg, 11/06/20 13:38:00 EDT, Dry Weight Start Date: 03/30/21 Status: Ordered oxyCODONE 5 mg oral tablet 5 mg, 1, tablet, By Mouth, Every 8 hours, PRN, for 30 days, mass pat ok, ok for less. Take only as needed., # 45 tablet, Refills 0, Tot. Refills 0, Hard Stop 02/28/22 15:37:00 EDT, Pain , Moderate, 01/29/22 15:37:00 EDT, Route to Pharmacy Electronical... Start Date: 01/29/22 Stop Date: 02/28/22 Status: Ordered oxyCODONE 5 mg oral tablet 5 mg, 1, tablet, By Mouth, Every 8 hours, PRN, mass pat ok, ok for less. Take only as needed., # 45tablet, Refills 0, Tot. Refills 0, Maintenance, Pain , Moderate, 09/28/21 17:08:00 EDT, Route to Pharmacy Electronically, [facility] #[id number],... Start Date: 09/28/21 Stop Date: 10/13/21 Status: Ordered oxyCODONE 5 mg oral tablet 5 mg, 1, tablet, By Mouth, Every 8 hours, PRN, mass pat ok, ok for less. Take only as needed., # 45tablet, Refills 0, Tot. Refills 0, Maintenance, Pain , Moderate, 02/14/22 9:20:00 EDT, Route to Pharmacy Electronically, [facility] #[id number], P... Start Date: 02/14/22 Stop Date: 03/16/22 Status: Ordered phentermine 30 mg oral capsule 1 capsule = 30 mg, By Mouth, Daily in AM, for 30 days, # 30 capsule, 0 Refills, Acute 03/23/22 8:14:00 EST, 02/21/22 8:14:00 EDT, Capsule, [facility] #[id number], Partial fill upon patient request; Sent to pharmacy for Most Cost- Effective measure... Start Date: 02/21/22 Stop Date: 03/23/22 Status: Ordered ProAir HFA 90 mcg/inh inhalation aerosol with adapter 2, puffs, Inhalation, Every 6 hours, PRN, # 8.5 Gm, Refills 5, Route to Pharmacy Electronically, [id number], [facility] #[id number], 176.8, cm, 10/12/21 15:16:00 EDT, Height, 123.4, kg, 10/12/21 15:16:00 EDT, Dry Weight Start Date: 11/05/21 Status: Ordered triamcinolone 0.1% topical cream See Instructions, APPLY TOPICALLY TO THE AFFECTED AREA ON ARMS AND LEGS THREE TIMES DAILY. MIX WITH16 OUNCES OF EUCERIN CREAM, # 80 Gm, 0 Refills, [facility] #[id number], 14, APPLY TOPICALLY TOTHE AFFECTED AREA ON [...] Name: Ab FRAGA, Margarito Dolan Address: Address: [address], [place] [address]
--- OUTSIDE RECORDS SUMMARY | 2023-09-25 00:36 | XMS_ITS | Continuity of Care Document ---
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 H Club Agent Name Role Phone Margarito Berger MD Primary Care Physician Encounter [facility] Date(s): 09/21/20 - 10/27/20 [facility] [address] [place] [address]- Attending Physician: Margarito Berger MD Allergies, Adverse Reactions, Alerts No Known Medication Allergies Substance Reaction Severity Status Seafood Active Other Food Allergy tuna fish Active Immunizations Given and Recorded Vaccine Date Status Refusal Reason tetanus/diphtheria/pertussis, acel(Tdap) 01/23/11 Given Medications albuterol CFC free 90 mcg/inh inhalation aerosol 2, puffs, Inhalation, Every 6 hours, PRN, # 18 Gm, Refills 2, Tot. Refills 2, Maintenance, 10/27/2113:54:00 EDT, Aerosol, Route to Pharmacy Electronically, [id number], [facility] #[id number], 176.8, cm, 09/09/19 10:48:0... Start Date: 10/27/20 Status: Ordered Chantix Starter Pack 0.5 mg-1 [...] CREAM, # 80 Gm, 0 Refills, Acute, [facility] #[id number], 25, APPLY TOPICALLY TO THE AFFECTED AREA [...]
--- OUTSIDE RECORDS SUMMARY | 2023-09-25 00:36 | XMS_ITS | Continuity of Care Document ---
Author Organization [facility] Address [address] [place] [address]- Care Team Providers Care Flour Inspector Name Role Phone Ab FRAGA, Margarito Dolan Primary Care Physician Encounter [facility] Date(s): 10/12/21 - 11/11/[address] [address] Attending Physician: AdmLona parisi Admitting Physician: AdmtrLona Referring Physician: Admtr, Ar8 [...] 0 Refills, Soft Stop, 11/06/20 13:52:00 EDT, [facility] #[id number], 176.8, cm, 11/06/20 13:38:00 EDT, Height, 140.3, kg, 11/06/20 13:38:00 EDT, Dry W... Start Date: 11/06/20 Status: Ordered ibuprofen 800 mg oral tablet 1, tablet, By Mouth, 3 times a day, PRN, TAKE WITH FOOD OR MILK, # 90 tablet, Refills 0, NEEDED FOR PAIN, Route to Pharmacy Electronically, [facility] #[id number], 176.8, cm, 06/21/21 15:26:00 EST, Height, 140.3, kg, 11/06/20 13:38:00 EDT, Dry... Start Date: 07/23/21 Status: Ordered ibuprofen 800 mg oral tablet 1, tablet, By Mouth, 3 times a day, PRN, TAKE WITH FOOD OR MILK, # 90 tablet, Refills 0, Tot. Refills 0, Maintenance, NEEDED FOR PAIN, 08/27/21 15:32:00 EDT, Route to Pharmacy Electronically, [facility] #[id number], 176.8, cm, 08/06/21 15:06:0... Start Date: 08/27/21 [...] Mouth, Daily, # 30 tablet, 0 Refills, [facility] #[id number], 176.8, cm, 10/12/2214:16:00 EDT, Height, 123.4, kg, 10/12/21 15:16:00 EDT, Dry Weight Start Date: 10/16/21 Status: Ordered magnesium oxide 250 mg oral tablet 1 tablet = 250 mg, By Mouth, Daily at bedtime, for 14 days, # 14 tablet, 0 Refills, Acute 11/13/21 8:49:00 EDT, 10/30/21 8:49:00 EDT, Tablet, [facility] #[id number], Partial fill upon patient request if the prescription is for a schedule II opioi... Start Date: 10/30/21 Stop Date: 11/13/21 Status: Ordered metFORMIN 750 mg oral tablet, extended release 1 tablet, By Mouth, Daily, # 60 tablet, 5 Refills, [facility] #[id number], 176.8, cm, 02/02/2116:07:00 EDT, Height, 140.3, kg, 11/06/20 13:38:00 EDT, Dry Weight Start Date: 03/30/21 Status: Ordered oxyCODONE 5 mg oral tablet 5 mg, 1, tablet, By Mouth, Every 8 hours, PRN, mass pat ok, ok for less. Take only as needed., # 45tablet, Refills 0, Tot. Refills 0, Maintenance, Pain , Moderate, 10/31/21 14:49:00 EDT, Route to Pharmacy Electronically, [facility] #[id number],... Start Date: 10/31/21 Stop Date: 11/15/21 Status: Ordered oxyCODONE 5 mg oral tablet 5 mg, 1, tablet, By Mouth, Every 8 hours, PRN, mass pat ok, ok for less. Take only as needed., # 45tablet, Refills 0, Tot. Refills 0, Maintenance, Pain , Moderate, 09/28/21 17:08:00 EDT, Route to Pharmacy Electronically, [facility] #[id number],... Start Date: 09/28/21 Stop Date: 10/13/21 Status: [...] 11/29/21 8:49:00 EDT, 10/30/21 8:49:00 EDT, Capsule, [facility] #[id number], Partial fill upon patient request if the [...] prescription is for a schedule II opioid dr.José Luis. Start Date: 10/31/21 Stop Date: 11/30/21 Status: Ordered ProAir HFA 90 mcg/inh inhalation aerosol with adapter 2, puffs, Inhalation, Every 6 hours, PRN, # 8.5 Gm, Refills 5, Route to Pharmacy Electronically, [id number], [facility] #[id number], 176.8, cm, 10/12/21 15:16:00 EDT, Height, 123.4, kg, 10/12/21 15:16:00 EDT, Dry Weight Start Date: 11/05/21 Status: Ordered triamcinolone 0.1% topical cream See Instructions, APPLY TOPICALLY TO THE AFFECTED AREA ON ARMS AND LEGS THREE TIMES DAILY. MIX WITH16 OUNCES OF EUCERIN CREAM, # 80 Gm, 0 Refills, [facility] #[id number], 14, APPLY TOPICALLY TOTHE AFFECTED AREA ON [...]
--- OUTSIDE RECORDS SUMMARY | 2023-09-25 00:36 | XMS_ITS | Continuity of Care Document ---
Author Organization [facility] Address [address] [place] [address]- Care Team Providers Care Glue Cook Name Role Phone Margarito Berger MD Primary Care Physician [place] [facility] [place] 11[place]29[place] - 12/06/20 [facility] [address] [place] [address]- Encounter Diagnosis Morbid obesity(Discharge Diagnosis) - 11/29/20 Adult BMI 40.0-44.9 kg/sq m(Discharge Diagnosis) - 11/29/20 Hypertension(Discharge Diagnosis) - 11/29/20 Prediabetes(Discharge Diagnosis) - 11/29/20 Attending Physician: Margarito Berger MD Allergies, Adverse [...] 6 Refills, Maintenance, 11/08/20 9:05:00 EDT, Powder, [facility] #[id number], Partial fill upon patient request if the prescription is for a schedule II opioid drug., 2 puffs Inhalation... Start Date: 11/08/20 Status: Ordered EpiPen 2-Michael 0.3 mg injectable kit = 0.3 mg, Intramuscular, Once, PRN severe allergic reaction, may repeat if necessary, # 2 each, 0 Refills, Soft Stop, 11/06/20 13:52:00 EDT, [facility] #[id number], 176.8, cm, 11/06/20 13:38:00 EDT, Height, 140.3, kg, 11/06/20 13:38:00 EDT, Dry W... Start Date: 11/06/20 Status: Ordered ibuprofen 800 mg oral tablet 800 mg, 1, tablet, By Mouth, 3 times a day, PRN, with food or milk, # 90 tablet, Refills 5, Tot. Refills 5, Maintenance, as needed for pain, 11/06/20 13:53:00 EDT, Route to Pharmacy Electronically, [facility] #[id number], 176.8, cm, 11/06/20 13:3... Start Date: 11/06/20 Status: Ordered losartan 50 mg oral tablet 50 mg, 1, tablet, By Mouth, Daily, # 30 tablet, Refills 3, Tot. Refills 3, Maintenance, 11/22/20 14:41:00 EDT, Route to Pharmacy Electronically, [facility] #[id number], Partial fill upon patientrequest if the prescription is for a schedule II op... Start Date: 11/22/20 Status: Ordered semaglutide 1 mg/0.5 mL (1 mg dose) subcutaneous solution = 1 mg, Subcutaneous Injection, Every 7 days, # 1 each, 6 Refills, Acute 12/20/20 12:00:00 EDT, 11/29/20 10:23:00 EDT, [facility] #[id number], Partial fill upon patient request if the [...] Clinical Service Informant Morbid obesity Discharge Diagnosis 11/29/20 Adult BMI 40.0-44.9 kg/sq m Discharge Diagnosis 11/29/20 Hypertension Discharge Diagnosis 11/29/20 Prediabetes Discharge Diagnosis 11/29/20 Vital Signs Most recent to oldest [Reference Range]: 1 2 Height 176.8 cm (11/29/20 9:49 AM) 176.8 cm (11/29/20 9:43 AM) Weight 143 kg (11/29/20 9:43 AM) Pulse Rate [55-90 bpm] 77 bpm (11/29/20 9:43 AM) Body Mass Index [18.5-24.99] 45.75 *>HHI* (11/29/20 9:43 AM) Blood Pressure [90-138/55-84 mm Hg] 140/ 88mm Hg *H* (11/29/20 9:49 AM) 150/88mm Hg *H* (11/29/20 9:43 AM) Blood pressure sites Arm, right (11/29/20 9:49 AM) Arm, right (11/29/20 9:43 AM) Weight Obtained Via Standing scale (11/29/20 9:43 AM) Social History Social History Type Response Smoking Status 5-9 cigarettes (betw een 1/4 to 1/2 pack)/day in last 30 days; Tobacco use times per day: 7; entered on: 12/31/18 Sex
--- OUTSIDE RECORDS SUMMARY | 2023-09-25 00:36 | XMS_ITS | Continuity of Care Document ---
Author Organization [facility] Address [address] [place] [address]- Care Team Providers Care Sponge Fisherman Name Role Phone Margarito Berger MD Primary Care Physician Encounter [facility] Date(s): 10/01/22 - 10/31/22 [facility] [address] [place] [address]- Allergies, Adverse Reactions, Alerts No Known Medication [...] 10/21/22 15:31:00 EDT, Route to Pharmacy Electronically, [facility] #[id number], Partial fill upon patient request if the prescription is... Start Date: 10/21/22 Status: Ordered EpiPen 2-Michael 0.3 mg injectable kit = 0.3 mg, Intramuscular, Once, PRN severe allergic reaction, may repeat if necessary, # 2 each, 0 Refills, Soft Stop, 11/06/20 13:52:00 EDT, [facility] #[id number], 176.8, cm, 11/06/20 13:38:00 EDT, Height, 140.3, kg, 11/06/20 13:38:00 EDT, Dry W... Start Date: 11/06/20 Status: Ordered hydrOXYzine hydrochloride 50 mg oral tablet See Instructions, TAKE 1 TABLET BY MOUTH FOUR TIMES DAILY FOR 12 DAYS NEEDED FOR ANXIETY, # 48 tablet, 0 Refills, Maintenance, 06/14/22 15:46:00 EST, [facility] #[id number], 176.8, cm, 05/01/22 13:41:00 EST, Height, 127.4, kg, 05/17/22 4:58:00... Start Date: 06/14/22 Status: Ordered hydrOXYzine hydrochloride 50 mg oral tablet See Instructions, TAKE 1 TABLET BY MOUTH FOUR TIMES DAILY FOR 12 DAYS NEEDED FOR ANXIETY, # 48 tablet, 0 Refills, Maintenance, 07/01/22 17:28:00 EST, [facility] #[id number], 176.8, cm, 05/01/22 13:41:00 EST, Height, 127.4, kg, 05/17/22 4:58:00... Start Date: 07/01/22 Status: Ordered hydrOXYzine hydrochloride 50 mg oral tablet 1 tablet = 50 mg, By Mouth, 3 times a day, # 60 tablet, 1 Refills, Maintenance, 10/21/22 15:31:00 EDT, [facility] #[id number], 176.8, cm, 10/11/22 16:37:00 EDT, Height, 127.4, [...] 08/27/22 20:18:00 EDT, Route to Pharmacy Electronically, [facility] #[id number], 176.8, cm, 05/01/22 13:41... Start Date: 08/27/22 [...] tablet, 1 Refills, Maintenance, 06/03/22 11:27:00 EST, [facility] #[id number], 176.8, cm, 05/01/22 13:41:00 EST, Height, 127.4, [...] 10/23/22 17:05:00 EDT, Route to Pharmacy Electronically, [facility] #[id number], P... Start Date: 10/23/22 Stop Date: 11/07/22 [...] 04/09/22 15:33:00 EST, Route to Pharmacy Electronically, [id number], [facility] #[id number], 176.8, cm, 02/28/22 10:47:00 EDT, Height, 123.4,... [...] Acute 12/06/22 16:54:00 EDT, 10/11/22 16:54:00 EDT, [facility] #[id number], Partial fill upon patient request if the [...] Care Member Role: PCP Address: Address: [address] [place] [address] Name: Bhumika Castillo RN Position: [facility] RN Member Role: Primary Care Nurse Name: Jaja Arshad RN Position: [facility] RN Member Role: Primary Care Nurse Name: Ludwin Butcher RN Position: [facility] RN Member Role: Primary Care Nurse Care Team Related Persons Name: GARRETT FUENTES Address: home [address] [place] [address] Name: MARLO REINOSO Name: PT STS, NONE Name: EFFIE RICKETTS Name: RANDALL RICKETTS
--- OUTSIDE RECORDS SUMMARY | 2023-09-25 00:36 | XMS_ITS | Continuity of Care Document ---
Author Organization [facility] Address [address] [place] [address]- Care Team Providers Care Service Center Appraiser Name Role Phone Margarito Berger MD Primary Care Physician Encounter [facility] Date(s): 01/24/23 - 01/31/23 [facility] [address] [place] [address]- Encounter Diagnosis Nasal septum perforation(Discharge Diagnosis) - 01/24/23 Attending Physician: Margarito Berger MD Allergies, Adverse [...] 01/23/23 17:29:00 EDT, Route to Pharmacy Electronically, [facility] #[id number], Partial fill upon patient request if the prescription is... Start Date: 01/23/23 Status: Ordered diclofenac sodium 75 mg oral delayed release tablet See Instructions, TAKE 1 TABLET BY MOUTH TWICE DAILY WITH FOOD DIRECTED, # 60 tablet, 0 Refills,01/29/23 13:09:00 EDT, [facility] #[id number], 176.8, cm, 01/24/23 10:59:00 EDT, Height, 127.4, kg, 05/17/22 4:58:00 EST, Dry Weight Start Date: 01/29/23 Status: Ordered EpiPen 2-Michael 0.3 mg injectable kit = 0.3 mg, Intramuscular, Once, PRN severe allergic reaction, may repeat if necessary, # 2 each, 0 Refills, Soft Stop, 01/24/23 12:05:00 EDT, [facility] #[id number], 176.8, cm, 01/24/23 10:59:00 EDT, Height, 127.4, kg, 05/17/22 4:58:00 EST, Dry We... Start Date: 01/24/23 Status: Ordered hydrOXYzine hydrochloride 50 mg oral tablet 1 tablet = 50 mg, By Mouth, 3 times a day, # 60 tablet, 1 Refills, Maintenance, 12/16/22 12:01:00 EDT, [facility] #[id number], 176.8, cm, 12/09/22 9:21:00 EDT, Height, 127.4, kg, 05/17/22 4:58:00 EST, Dry Weight Start Date: 12/16/22 Status: Ordered losartan 50 mg oral tablet 1 tablet, By Mouth, Daily, # 90 tablet, 1 Refills, Maintenance, 11/28/22 21:33:00 EDT, [facility] #[id number], 176.8, cm, 11/05/22 11:22:00 EDT, Height, 127.4, kg, 05/17/22 4:58:00 EST, Dry Weight Start Date: 11/28/22 Status: Ordered mupirocin 2% topical ointment See Instructions, APPLY TOPICALLY TO THE AFFECTED AREA THREE TIMES DAILY FOR 14 DAYS, # 22 Gm, 0 Refills, Maintenance, 01/29/23 10:37:00 EDT, [facility] #[id number], 10, APPLY TOPICALLY TO THE AFFECTED AREA THREE TIMES DAILY FOR 14 DAYS, 176.8, c... Start Date: 01/29/23 Status: Ordered oxyCODONE 5 mg oral tablet 5 mg, 1, tablet, By Mouth, Every 8 hours, PRN, mass pat ok, ok for less. TAKE ONLY NEEDED, # 45 tablet, Refills 0, Tot. Refills 0, Maintenance, Pain , Moderate, 01/21/23 10:19:00 EDT, Route to Pharmacy Electronically, [facility] #[id number], P... Start Date: 01/21/23 Stop Date: 02/05/23 Status: Ordered predniSONE 20 mg oral tablet See Instructions, 2 tablets By Mouth Daily for 5 days and then 1 tablet by mouth daily for 5 days, # 15 tablet, 0 Refills, Soft Stop, 01/08/23 16:53:00 EDT, Tablet, [facility] #[id number], Partial fill upon patient request if the prescription is... Start Date: 01/08/23 Status: Ordered triamcinolone 0.025% topical ointment 1 application, Topically, 2 times a day, for 14 days, # 60 Gm, 3 Refills, Acute 03/27/23 12:53:00 EST, 01/30/23 12:53:00 EDT, Ointment, [facility] #[id number], Partial fill upon patient request if the prescription is for a schedule II opioid drug... Start Date: 01/30/23 Stop Date: 03/27/23 Status: Ordered Ventolin HFA 108 mcg/inh inhalation aerosol with adapter 2 puffs, Inhalation, Every 6 hours, # 8.5 Gm, 6 Refills, Maintenance, 12/23/22 11:39:00 EDT, [facility] #[id number], 176.8, cm, 12/23/22 11:25:00 EDT, Height, 127.4, [...] Dates Health Status Clinical Service Informant Nasal septum perforation Discharge Diagnosis 01/24/23 Vital Signs Most recent to oldest [Reference Range]: 1 Height 176.8 cm (01/24/23 10:59 AM) Weight 125 kg (01/24/23 10:59 AM) Oxygen Saturation [94-100 %] 98 % (01/24/23 10:59 AM) Pulse Rate [55-90 bpm] 109 bpm *H* (01/24/23 10:59 AM) Body Mass Index [18.5-24.99 kg/m2] 39.99 kg/m2 *>HHI* (01/24/23 10:59 AM) Blood Pressure [90-138/55-84 mm Hg] 119/ 79mm Hg (01/24/23 10:59 AM) Weight Obtained Via Standing scale (01/24/23 10:59 AM) Social History Social History Type Response Smoking Status 5-9 cigarettes (betw een 1/4 to 1/2 pack)/day in last 30 days; Tobacco use times per day: 7; entered on: 12/31/18 Sex Note * Agustina Reyna: PERFORM, SIGN, VERIFY Event Display: Patient Education/Instruction Authored Date: [id number] [facility] *[facility] Clinical Summary Name EDD RICKETTS Age 47 Years 1975 PCP Margarito Berger MD PCP Visit Date 01/24/2023 10:27:00 Additional Instructions: Scheduled Appointments?? Future Appointments ?[facility]Hrt??Vas??Diag ?Phone:??--?Fax:??-- ?Appt. Date:??02/26/2023?12:30 PM ?Scheduled Provider:??[facility] [place] Follow-Up Instructions ?? Diagnosis Other specified disorders of nose and nasal sinuses Medications: Please continue your medications until treatment is completed or stopped by your provider. Discuss any questions related to medications with your provider. Medications to Continue Taking That Have Changed [facility] #[id number], [address] [place], [place] [id number], [phone] - EPINEPHrine (EpiPen 2-Michael 0.3 mg injectable kit) 0.3 Milligram Intramuscular once as needed severe allergic reaction. may repeat if necessary. Refills: 0. Next Dose: Medications to Continue with No Changes These medications were not printed or sent to your pharmacy Albuterol (Ventolin HFA 108 mcg/inh inhalation aerosol with adapter) 2 puff(s) Inhalation every 6 hours for 30 Days. Refills: 6. Next Dose: Cyclobenzaprine (cyclobenzaprine 10 mg oral tablet) 1 tab(s) Oral 3 times a day. PRN spasms. Refills: 0. Next Dose: Diclofenac (diclofenac sodium 75 mg oral delayed release tablet) TAKE 1 TABLET BY MOUTH TWICE DAILYWITH FOOD DIRECTED. Refills: 1. Next Dose: HydrOXYzine (hydrOXYzine hydrochloride 50 mg oral tablet) 1 tab(s) Oral 3 times a day. Refills: 1. Next Dose: Losartan (losartan 50 mg oral tablet) 1 tab(s) Oral Daily. Refills: 1. Next Dose: Oxycodone (oxyCODONE 5 mg oral tablet) 1 tab(s) Oral every 8 hours as needed Pain , Moderate for 15Days. mass pat ok, ok for less. TAKE ONLY NEEDED. Refills: 0. Next Dose: Oxycodone (oxyCODONE 5 mg oral tablet) 1 tab(s) Oral every 8 hours. Masspat checked. Refills: 0. Next Dose: PredniSONE (predniSONE 20 mg oral tablet) 2 tablets By Mouth Daily for 5 days and then 1 tablet by mouth daily for 5 days. Refills: 0. Next Dose: Allergy Info:?? No Known Medication Allergies; Other Food Allergy; Seafood Medications Given This Visit Future Orders ?Cocaine Urine Screen? Order Date:01/24/23?- Complete on or after?01/24/23 Vital Signs Height 176.8 cm Weight 125 kg BMI 39.99 kg/m2 Blood Pressure 119 mm Hg/79 mm Hg Temperature Pulse Rate 109 bpm Respiratory Rate 02 Sat Mode of Delivery 98 %/ You can now view a summary of your hospital visit from the comfort of your home through a free online portal called [employer]. [employer] is a website that allows you to securely view your medical information including discharge summary, medications and follow-up visits. ??You can alsosend a secure electronic message to your doctor???s office to request appointments, renew medications or just ask a question. You can enroll at [email or web address] or register during your next office visit. [...] primary care provider, you may find a [facility] provider by calling [facility] [employer] [facility] at [phone]. [facility], in keeping with [facility] guidance, no longer requires face masks for [...] Care Member Role: PCP Address: Address: [address] [place] [address] Name: Bhumika Castillo RN Position: [facility] RN Member Role: Primary Care Nurse Name: Jaja Arshad RN Position: [facility] RN Member Role: Primary Care Nurse Name: Ludwin Butcher RN Position: [facility] RN Member Role: Primary Care Nurse Care Team Related Persons Name: FUENTES GARRETT Address: home [address] [place] [address] Name: MARLO REINOSO Name: PT STS, NONE Name: EFFIE RICKETTS Name: RANDALL RICKETTS
--- OUTSIDE RECORDS SUMMARY | 2023-09-25 00:36 | XMS_ITS | Continuity of Care Document ---
Author Organization [facility] [place] [place] Address [address] [facility] [place] [address]- Care Team Providers Care Supervisor Edging Name Role Phone Ab FRAGA, Margarito Dolan Primary Care Physician Encounter 04/18/21 - 04/25/21 [facility] [address], [address] [place] [address]- Attending Physician: Margarito Berger MD Admitting Physician: [...] 6 Refills, Maintenance, 01/08/21 12:55:00 EDT, Powder, [facility] #[id number], Partial fill upon patient request if the prescription is for a schedule II opioid drug., 2 puffs Inhalatio... Start Date: 01/08/21 Status: Ordered EpiPen 2-Michael 0.3 mg injectable kit = 0.3 mg, Intramuscular, Once, PRN severe allergic reaction, may repeat if necessary, # 2 each, 0 Refills, Soft Stop, 11/06/20 13:52:00 EDT, [facility] #[id number], 176.8, cm, 11/06/20 13:38:00 EDT, Height, 140.3, kg, 11/06/20 13:38:00 EDT, Dry W... Start Date: 11/06/20 Status: Ordered hydrOXYzine hydrochloride 50 mg oral tablet See Instructions, TAKE 1 TABLET BY MOUTH FOUR TIMES DAILY NEEDED FOR ANXIETY, # 40 tablet, 0 Refills, Acute 05/16/21 8:11:00 EST, 04/18/21 8:09:00 EST, [facility] #[id number], 176.8, cm, 04/16/21 14:48:00 EST, Height, 140.3, kg, 11/06/20 13:38... Start Date: 04/18/21 Stop Date: 05/16/21 Status: Ordered hydrOXYzine hydrochloride 50 mg oral tablet See Instructions, TAKE 1 TABLET BY MOUTH FOUR TIMES DAILY NEEDED FOR ANXIETY., # 40 tablet, 0 Refills, Maintenance, 03/23/21 12:03:00 EST, [facility] #[id number], 176.8, cm, 02/01/21 16:07:00EDT, Height, 140.3, kg, 11/06/20 13:38:00 EDT, Dry... Start Date: 03/23/21 Status: Ordered hydrOXYzine hydrochloride 50 mg oral tablet See Instructions, TAKE 1 TABLET BY MOUTH FOUR TIMES DAILY NEEDED FOR ANXIETY., # 40 tablet, 0 Refills, [facility] #[id number], 176.8, cm, 01/08/21 12:47:00 EDT, Height, 140.3, [...] 04/10/21 11:47:00 EST, Route to Pharmacy Electronically, [facility] #[id number], 176.8, cm, 02/01/21 16:0... Start Date: 04/10/21 [...] 02/26/21 14:39:00 EDT, Route to Pharmacy Electronically, [facility] #[id number], Partial fill upon patientrequest if the prescription is for a schedule II op... Start Date: 02/26/21 Stop Date: 05/27/21 Status: Ordered losartan 50 mg oral tablet 50 mg, 1, tablet, By Mouth, Daily, # 30 tablet, Refills 3, Tot. Refills 3, Maintenance, 11/22/20 14:41:00 EDT, Route to Pharmacy Electronically, [facility] #[id number], Partial fill upon patientrequest if the prescription is for a schedule II op... Start Date: 11/22/20 Status: Ordered losartan 50 mg oral tablet 1 tablet = 50 mg, By Mouth, Daily, for 30 days, # 30 tablet, 5 Refills, Physician Stop 10/13/21 14:50:00 EDT, 04/16/21 14:50:00 EST, [facility] #[id number], 176.8, cm, 02/01/21 16:07:00 EDT, Height, 140.3, kg, 11/06/20 13:38:00 EDT, Dry Weight Start Date: 04/16/21 Stop Date: 10/13/21 Status: Ordered metFORMIN 750 mg oral tablet, extended release 1 tablet, By Mouth, Daily, # 60 tablet, 5 Refills, [facility] #[id number], 176.8, cm, 02/02/2116:07:00 EDT, Height, 140.3, kg, 11/06/20 13:38:00 EDT, Dry Weight Start Date: 03/30/21 Status: Ordered oxyCODONE 5 mg oral tablet 5 mg, 1, tablet, By Mouth, Every 8 hours, Ronald ochoa Okay to fill for less, # 20 tablet, Refills 0, Tot. Refills 0, Maintenance, 04/25/21 12:22:00 EST, Route to Pharmacy Electronically, [facility] #[id number], Partial fill upon patient request... Start Date: 04/25/21 Stop Date: 05/01/21 Status: Ordered phentermine 30 mg oral capsule 1 capsule = 30 mg, By Mouth, Daily in AM, for 30 days, # 30 capsule, 0 Refills, Acute 05/16/21 15:25:00 EST, 04/16/21 15:25:00 EST, Capsule, [facility] #[id number], Partial fill upon patient request if the prescription is for a schedule II opioid... Start Date: 04/16/21 Stop Date: 05/16/21 Status: Ordered triamcinolone 0.1% topical cream See Instructions, APPLY TOPICALLY TO THE AFFECTED AREA ON ARMS AND LEGS THREE TIMES DAILY FOR 14 DAYS. MIX WITH 16 OUNCES EUCERIN CREAM, # 80 Gm, 0 Refills, Maintenance, 03/23/21 12:03:00 EST, [facility] #[id number], 25, APPLY TOPICALLY TO THE AF... Start [...]
== END 2023-09-25 00:29 | disposition home or self-care (01) ==
LOC: HO.ED 09-25 00:25
PROVIDERS: Emergency Provider Internal Medicine; PCP Family Medicine
DX: S39.012A Strain of muscle, fascia and tendon of lower back, initial encounter (principal); E11.9 Type 2 diabetes mellitus without complications; J45.909 Unspecified asthma, uncomplicated; V59.40XA Driver of pick-up truck or van injured in collision with unspecified motor vehicles in traffic accident, initial encounter; Y93.9 Activity, unspecified; Y92.410 Unspecified street and highway as the place of occurrence of the external cause; Y99.9 Unspecified external cause status
CPT/HCPCS: 99282

== ENCOUNTER 2024-07-05 10:06 | Emergency (ER) | payer OTHER, SELFPAY ==
[2024-07-05 10:20] VITALS: BP 125/69; PULSE 89; RESP 19; TEMP 36.6; O2SAT 98; BMI 25.8
[2024-07-05 11:37] LABS: Influenza A PCR POSITIVE (Negative); Influenza B PCR NEGATIVE (Negative); Resp Syncy Virus RNA Qual PCR NEGATIVE (Negative); SARS COV2 PCR INHOUSE NEGATIVE (Negative)
--- NOTE | 2024-07-05 11:45 | ED.URI ---
HPI - URI/Sore Throat General Chief Complaint: Upper Respiratory Symptoms Stated Complaint: fever not feeling well Time Seen by Provider: 07/05/24 11:44 Source: patient Mode of arrival: ambulatory Limitations: no limitations History of Present Illness ED Provider: NIRMALA MEYER PA-C HPI Narrative: 48-year-old male with PMHX significant for asthma and DM presents to the ED today for evaluation of subjective fevers, chills, congested cough, dizziness and myalgias x3 days. No known sick contacts. Denies N/V/D, abd pain, chest pain, SOB. He did not receive his flu vaccination this year. Related Data Previous Rx's ?Medication ?Instructions ?Recorded azithromycin 250 mg tablet 250 mg PO DAILY pneumonia 5 days 02/10/20 #5 tabs cyclobenzaprine 10 mg tablet 10 mg PO TID PRN muscle spasm #10 10/01/20 tabs naproxen 500 mg tablet 500 mg PO BID PRN pain #20 tabs 10/01/20 cyclobenzaprine 10 mg tablet 10 mg PO TID PRN muscle spasm #14 12/07/21 tabs ibuprofen 600 mg tablet 600 mg PO Q8H PRN pain #20 tabs 12/07/21 lidocaine 5 % topical patch 1 patch topical DAILY #15 ea 12/07/21 benzocaine 15 mg-menthol 2.6 mg 1 claudia mucous membrane Q2-4H PRN 07/05/24 lozenges (Cepacol Sore Throat sore throat #16 ea (benzocaine-menthol)) benzonatate 100 mg capsule 100 mg PO BID PRN cough #20 caps 07/05/24 Allergies Allergy/AdvReac Type Severity Reaction Status Date / Time SEAFOOD Allergy Severe ANAPHYLAXIS Uncoded 07/05/24 10:22 TUNA FISH Allergy Severe ANAPHYLAXIS, Uncoded 07/05/24 10:22 AIR BORN REACTION PER PT. Review of Systems Review of Systems: Yes all other systems are reviewed and are negative PMFSH Past Medical History Attestation statement: The following information was validated with the patient. Source: old records reviewed and nursing notes reviewed Medical History Diabetes Asthma Social History Social History Advance Directives: No Advance Directives Information Provided: Yes Do you have a plan to hurt others: No Plan Current occupational status: unemployed Current occupation: rt handed Physical Exam Vital Signs: Vital Signs: Last Vital Signs Temp 98 F 07/05/24 11:53 Pulse 89 07/05/24 11:53 Resp 19 07/05/24 11:53 BP 125/69 07/05/24 11:53 Pulse Ox 98 07/05/24 11:53 O2 Del Method Room Air 07/05/24 11:53 BMI result Body Mass Index 25.8 Vital signs stable General: Well appearing, in no acute distress. Skin: Warm, dry, intact. No rashes or lesions. Head: Normocephalic, atraumatic. EENT: Hearing is intact b/l. Conjunctiva clear. PERRLA. EOM intact. Moist mucous membranes.? Posterior oropharynx without erythema or edema. No tonsillar exudates or peritonsillar masses. Uvula midline. Controlling secretions and speaking complete sentences. Neck: Supple without LAD. FROM. Trachea midline.? Cardiac: Chest wall symmetric. RRR Lungs: Normal respiratory effort without accessory muscle use. CTA bilaterally Abdomen: Soft, non-tender, non-distended. No rebound tenderness or guarding. Positive BS x4. Ext: Upper and lower extremities atraumatic, without tenderness, deformity, swelling or erythema Neuro: AOx3. Normal speech. Ambulating with steady gait. Psych: Appropriate mood and affect. Responds appropriately to questions. Course Course Course Narrative: Positive for flu A. Negative COVID, RSV. No concern for strep throat. Centor criteria 0. testing not warranted. Discussed all results with patient. Will send Cepacol throat lozenges and Tessalon Perles to pharmacy. Patient has remained stable throughout ED visit today. Discussed worrisome signs and symptoms and when to return to the ED. All questions answered at this time. Patient is agreeable with disposition and stable for discharge. Medical Decision Making Medical Decision Making MDM Narrative: 48-year-old male with no significant past medical history presents to the ED today for evaluation of subjective fevers, chills, congested cough, dizziness and myalgias x3 days. Vital signs stable. Afebrile. Not hypoxic. He is nontoxic appearing in no acute distress. Exam benign. No respiratory distress. Concern for viral syndrome. Exam not consistent with strep throat. Unlikely EXERCISE PHYSIOLOGIST CERTIFIED, retropharyngeal abscess, epiglottitis, anemia, electrolyte abnormality. Plan for viral swabs and re-evaluation. Differential Diagnosis Differential Diagnoses: The differential diagnosis associated with the presentation includes As above Admission/Observation Not indicated Lab Data MDM Lab Attestation statement: I reviewed the patient's lab results. As above Labs: Lab Results 07/05/24 Range/Units 10:41 Influenza Type A (PCR) POSITIVE A (Negative) Influenza Type B (PCR) NEGATIVE (Negative) RSV RNA Qual (PCR) NEGATIVE (Negative) SARS-CoV-2 RNA (RT-PCR) NEGATIVE (Negative) S. pyogenes GrpA SHAE Invalid (Negative) Prescription Management I considered prescription management with: Other (Cepacol throat lozenges, Tessalon Perles) Social Determinants Patient?s care significantly limited by Social Determinants of Health including: Other Social Determinant of Health Critical Care Time Critical Care Time Critical Care Time: No Discharge Plan Discharge Clinical Impression: Influenza A Patient Disposition: Home, Self-Care Instructions: Influenza (ED) Additional Instructions: You tested positive for influenza. This does not require antibiotic treatment. Treatment is symptomatic. I am sending Tessalon Perles to your pharmacy for you to take as needed for cough. Cepacol throat lozenges have been sent to your pharmacy for sore throat. Alter ibuprofen and Tylenol for fevers and body aches. Follow up with PCP. If symptoms worsen please return to the emergency department. The case of an emergency call 911. Prescriptions: New Cepacol Sore Throat (mary-men) 15-2.6 mg lozenge 1 claudia mucous membrane Q2-4H PRN (Reason: sore throat) Qty: 16 0RF benzonatate 100 mg capsule 100 mg PO BID PRN (Reason: cough) Qty: 20 0RF No Action azithromycin 250 mg tablet 250 mg PO DAILY 5 Days Qty: 5 0RF cyclobenzaprine 10 mg tablet 10 mg PO TID PRN (Reason: muscle spasm) Qty: 10 0RF naproxen 500 mg tablet 500 mg PO BID PRN (Reason: pain) Qty: 20 0RF cyclobenzaprine 10 mg tablet 10 mg PO TID PRN (Reason: muscle spasm) Qty: 14 0RF ibuprofen 600 mg tablet 600 mg PO Q8H PRN (Reason: pain) Qty: 20 0RF lidocaine 5 % adhesive patch,medicated 1 patch topical DAILY Qty: 15 0RF Rx Instructions: leave on most painful area for up to 12 hrs Referrals: Margarito Berger MD [Primary Care Provider] - Stand Alone Forms: Work/School Release Interventions: ED Discharge Assessment Last Done: 07/05/24 11:53 Discharge Date/Time: 07/05/24 11:53 Print Language: Romanian
[2024-07-05 11:50] LABS: IDNOW Serial# 58CA691E
[2024-07-05 11:51] LABS: Strep A Nucleic Acid Invalid (Negative)
[2024-07-05 11:53] VITALS: BP 125/69; PULSE 89; RESP 19; TEMP 36.6; O2SAT 98
== END 2024-07-05 11:53 | disposition home or self-care (01) ==
PROVIDERS: Emergency Provider Emergency Medicine; PCP Family Medicine
DX: J10.1 Influenza due to other identified influenza virus with other respiratory manifestations (principal); R50.9 Fever, unspecified; E11.9 Type 2 diabetes mellitus without complications; J45.909 Unspecified asthma, uncomplicated; Z03.818 Encounter for observation for suspected exposure to other biological agents ruled out
CPT/HCPCS: 0241U; 87651; 99282; 99283

== ENCOUNTER 2024-08-20 19:52 | Emergency (ER) | payer OTHER, SELFPAY ==
--- NOTE | ~2024-08-20 | XR_ITS ---
CLINICAL HISTORY: Atraumatic pain swelling 3 view left ankle Comparison: None Findings: Bones intact. No dislocations. No significant arthritic change or erosions. No ankle effusion. No radiopaque foreign body. IMPRESSION: 1. No acute findings. This document has been electronically signed by: Hal Oropeza MD on 08/20/2024 21:26:11
--- NOTE | ~2024-08-20 | XR_ITS ---
CLINICAL HISTORY: right 3rd digit injury 3 view right third digit Comparison: None Findings: Bones intact. No dislocations. There is focal flexion of the distal interphalangeal joint of the 3rd digit. There is a tiny ossific density along the dorsal aspect of the DIP joint of the 3rd digit suspicious for small avulsion injury related to extensor tendon avulsion. No erosions. No radiopaque foreign body. IMPRESSION: Small avulsion fracture from the dorsal aspect of the proximal portion of the distal phalanx of the 3rd digit consistent with extensor tendon avulsion. This document has been electronically signed by: Hal Oropeza MD on 08/20/2024 21:32:04
--- NOTE | ~2024-08-20 | XR_ITS ---
CLINICAL HISTORY: Atraumatic pain swelling 3 view left foot Comparison: None Findings: Bones intact. No dislocations. No significant loss of joint space, osteophytes, or erosions. No ankle effusion. No radiopaque foreign body. IMPRESSION: 1. No acute findings. This document has been electronically signed by: Hal Oropeza MD on 08/20/2024 21:28:12
[2024-08-20 20:05] VITALS: BP 128/90; PULSE 96; RESP 17; TEMP 36.9; O2SAT 98; BMI 27.2
--- NOTE | 2024-08-20 20:08 | ED_ITS ---
HPI - General Adult General Chief complaint: Extremity Problem Stated complaint: swollen left ankle and finger Time Seen by Provider: 08/20/24 21:21 Source: patient Mode of arrival: ambulatory Limitations: no limitations History of Present Illness ED Provider: HPI narrative: Patient's got injury to his right middle finger from metal door with slammed onto it just prior to arrival patient is unable to extend distal phalanx no open wound no nail injuries Related Data Previous Rx's ?Medication ?Instructions ?Recorded azithromycin 250 mg tablet 250 mg PO DAILY pneumonia 5 days 02/10/20 #5 tabs cyclobenzaprine 10 mg tablet 10 mg PO TID PRN muscle spasm #10 10/01/20 tabs naproxen 500 mg tablet 500 mg PO BID PRN pain #20 tabs 10/01/20 cyclobenzaprine 10 mg tablet 10 mg PO TID PRN muscle spasm #14 12/07/21 tabs ibuprofen 600 mg tablet 600 mg PO Q8H PRN pain #20 tabs 12/07/21 lidocaine 5 % topical patch 1 patch topical DAILY #15 ea 12/07/21 benzocaine 15 mg-menthol 2.6 mg 1 claudia mucous membrane Q2-4H PRN 07/05/24 lozenges (Cepacol Sore Throat sore throat #16 ea (benzocaine-menthol)) benzonatate 100 mg capsule 100 mg PO BID PRN cough #20 caps 07/05/24 Allergies Allergy/AdvReac Type Severity Reaction Status Date / Time SEAFOOD Allergy Severe ANAPHYLAXIS Uncoded 08/20/24 20:07 TUNA FISH Allergy Severe ANAPHYLAXIS, Uncoded 08/20/24 20:07 AIR BORN REACTION PER PT. Review of Systems 2 Review of Systems: Yes all other systems are reviewed and are negative [facility] Past Medical History Medical History Diabetes Asthma Social History Social History Advance Directives: No Advance Directives Information Provided: No Do you have a plan to hurt others: No Plan Current occupational status: unemployed Current occupation: rt handed Physical Exam ED Vital Signs: BMI result Body Mass Index 27.2 Extrem Hand/finger images: 2 1. Distal phalanx in palmar flexion unable to do passive or active dorsiflexion of distal phalanx neurovascular intact intact nail Course Course Course Narrative: This is a Rapid Medical Examination (RME) performed by Kiersten Zaragoza PA-C in triage. Full HPI, ROS, assessment and treatment plan per primary provider in the Main ED. 08/20/242007 ALE Mcintyre Hx: 48 yo male here for evaluation of swelling pain to distal aspect of right 3rd digit after shutting his finger in a metal door a few hours ago. He also reports pain and swelling to lateral aspect of left foot/ankle. States it feels like a bone is sticking out . Has a compression bandage around the ankle foot at this time. PE/vitals: Noted swelling to distal aspect of right 3rd digit. Right 3rd DIP fixed in extension. Left ankle not visualized. Plan: Imaging Procedures Orthopedic Splinting/Casting Injury #1: Side: right Upper Extremity Injury Location: finger (Middle finger) Upper Extremity Immobilizer: aluminum form splint Medical Decision Making Medical Decision Making MDM Narrative: Patient clinically with injury to the distal phalanx involving the extensor tendon x-ray showed avulsion of the base of the distal phalanx. Finger splint was applied in extensor position advised to follow with hand surgeon Independent Interpretation I performed an independent interpretation of an: Plain X-Ray Radiology Impression Discussion of test interpretation with radiology: I have reviewed the radiologist's reading. Discharge Plan Discharge Clinical Impression: Avulsion fracture of distal phalanx of finger Patient Disposition: Home, Self-Care Instructions: Finger Fracture (ED) Additional Instructions: Wear the splint as given to you You have small avulsion fracture of your right middle finger from the injury Need to follow up with Orthopedics for proper healing Prescriptions: No Action azithromycin 250 mg tablet 250 mg PO DAILY 5 Days Qty: 5 0RF cyclobenzaprine 10 mg tablet 10 mg PO TID PRN (Reason: muscle spasm) Qty: 10 0RF naproxen 500 mg tablet 500 mg PO BID PRN (Reason: pain) Qty: 20 0RF cyclobenzaprine 10 mg tablet 10 mg PO TID PRN (Reason: muscle spasm) Qty: 14 0RF ibuprofen 600 mg tablet 600 mg PO Q8H PRN (Reason: pain) Qty: 20 0RF lidocaine 5 % adhesive patch,medicated 1 patch topical DAILY Qty: 15 0RF Rx Instructions: leave on most painful area for up to 12 hrs Cepacol Sore Throat (mary-men) 15-2.6 mg lozenge 1 claudia mucous membrane Q2-4H PRN (Reason: sore throat) Qty: 16 0RF benzonatate 100 mg capsule 100 mg PO BID PRN (Reason: cough) Qty: 20 0RF Referrals: Leslie Centeno MD [Physician] - 1 week Interventions: ED Discharge Assessment Last Done: 08/20/24 22:13 Discharge Date/Time: 08/20/24 22:15 Print Language: Macedonian
--- OUTSIDE RECORDS SUMMARY | 2024-08-20 21:15 | XMS_ITS | Data Portability ---
Author Organization [place] - [facility], [facility] - INPATIENT Address [address] [place] [id number] Care Team Providers Care Ve Teacher Name Role Phone WILLIAMANGEL HUNT Hydrotechnical Specialist Assessment Encounter Date Assessment Date Assessment LastModified by Organization Details LastModified Time 09/22/2014 09/22/2014 DATA:? ? ? We did get new films of his knees today and they do show arthrosis tricompartmental developing on the left side. His right side actually shows very little arthrosis.? ? ? Just a faint bit of narrowing medially.? IMPRESSION:? ? ? I do feel his knees are stable.? ? ? He did get benefit from the viscosupplementation done 3 months ago.? PLAN:? ? ? I think his current symptom complex is actually a flare up of sciatica and low back pain, and he is referred to seek back care at home since this does not appear to be related to his Worker? s Compensation issues.? ? ? I will plan to check him back in November, for question of whether or not to repeat the viscosupplementation injections depending on how his response really has worked out from them. ? ? ? [email or web address] Not available 09/24/2014 23:30:45 01/05/2015 01/05/2015 DATA:? ? ? Reviewing his most recent x-rays from this spring he has near [id number] on both medial and lateral compartments.? PLAN:? ? ? I discussed options with him.? ? ? Clearly at this juncture it is reasonable to consider for total joint replacement, in spite of his young age.? ? ? Will refer him to Dr. Edwards for that assessment.? ? ? I will see him back on an as needed basis. [email or web address] Not available 01/06/2015 12:37:25 02/16/2015 02/16/2015 ? ? ? TREATMENT GIVEN: After appropriate counseling and sterile Betadine preparation, the skin and subcutaneous tissues lateral to each patella were infiltrated with 2% Xylocaine. He was then injected intra-articularly into each knee with 4cc of Monovisc without untoward effect. The usual post injection instructions were given. ? ? ? PLAN: I will see him on an as needed basis from here. He will pursue possible joint replacement with Dr. Edwards for his left knee. [email or web address] Not available 02/20/2015 09:49:41 01/08/2016 01/08/2016 IMPRESSION: As a guillermina. ? ? ? PLAN:? ? ? I recommended he go through joint replacement.? ? ? His management will go over to Dr. Edwards if he does that. If not, we will have him work with Dr. Girish Nunez. ? ? ? Not available 01/09/2016 18:46:42 06/05/2017 06/05/2017 DATA: New plain films were obtained today, and they show minimal narrowing of the medial joint space. IMPRESSION: [place] concern that he may have re-torn the medial meniscus. PLAN: I would recommend getting a new MRI scan to assess this medial meniscus, as well as the articular surface medially. Since he lives out in the [place] the [facility] he will call us so that we can discuss the findings of the scan on the phone and not have him drive all the way here. We will work on getting Worker's Comp approval for this since this is an old work injury. Not available 06/06/2017 19:46:44 Plan of Treatment Reminders Order Date Submit Date Provider Last Modified By Organization Details Last Modified Time Details Appointments None recorded. Lab None recorded. Referral None recorded. Procedures None recorded. Surgeries None recorded. Imaging None recorded. Medication Orders Monovisc 88 mg/4 mL intra-bel cular syringe 2014 015 [email or web address] Not available 8 11:31:46 oxycodone 5 mg tablet 2014 015 [email or web address] [facility]/Ph[facility]acy #[id number], [id number] [facility], [place], [address], 8 11:23:36 Patient TargetsNo targets recorded. Patient InstructionsNo instructions recorded. Reason for Referral None Reported. Results Created Date Observation Date Name Description Value Unit Range Abnormal Flag Note LastModifiedBy Organization Detail LastModifiedTime 09/23/19 15 knees bilat 4 views each No observ ation record ed. [facility] [address] [place] [address], [address] 04/05/2015 04:01:03 09/23/19 15 09/22/2014 knees bilat 4 views each Fin al Report EXAM#: [id number] PROCED URE: 8NB 0107 KNEES BILAT 4 VIEWS EACH Sep 22 2014 12:42P M CLINIC AL INDICA TION: Bilate ral Knee Pain RESULT S: Clinic al indica tions: Bilate ral knee pain Findin gs: Four views of each knee includ ing standi ng AP and PA views of both knees are compar ed with a prior examin ation from 2012. Postop erativ e change s of ligame nt repair at the left knee are again demons trated with modera te osteoa rthrit is in the medial femoro tibial compar tment with minima l joint effusi on. At the right knee, there is minima l narrow ing of the medial femoro tibial compar tment. . . . . \E\ Report ed by : ADRIAN GEORGES M.D. On: Sep 22 2014 1:41P Signed by: ARDIAN GEORGES M.D. On: Sep 22 2014 1:41P [facility] [address] [facility], [place], [address], 04/05/2015 04:01:03 09/23/19 15 knees bilat 4 views each No observ ation record ed. [facility] [employer] [address], [address] 04/05/2015 04:01:03 01/08/20 16 img:[email or web address] mata No observ ation record ed. [email or web address] [facility] [employer] [address] [place] [address], [address] 01/08/2016 13:31:17 01/08/20 16 01/08/2016 XR, knee, 4 or more view [facility] [place] Access ion Number : [id number] 1.8 Patimekhi t Name : Rashaad Enamoradoa l Record Number : [id number] Date of : 1975 Date of Exam : 2015 Referr ing Physic yisel : TRENTON ESPARZA [place] [facility] [address] [place] [address] Exam : CR - KNEE BILATE RAL, 4 VIEWS EACH, CPT CPT 24544- 50 - Room Descri ption : [facility] XR Techni que : Bilate ral AP, Bilate ral Tunnel , Bilate ral Sunris e, Left Latera l, Right Latera l Final Report Fin al Report [facility] EXAM#: [id number] PROCED URE: DXR 0120 KNEE BILATE RAL 4 VIEWS EACH Jan 08 2016 12:09P M CLINIC AL INDICA TION: bilate ral knee pain RESULT S: Clinic al indica tions: Bilate ral knee pain Findin gs: Four views of each knee includ ing standi ng AP and PA views of both knees are interp reted withou t compar kajal radiog raphs. There are postop erativ e change s of ligame nt repair s at the left knee. Modera te medial femoro tibial compar tment osteoa rthrit is is demons trated on the left with cartil age space loss. There is minima l joint effusi on. On the right, there is mild narrow ing of the medial femoro tibial compar tment. . . . . \ Report ed by : ADRIAN GEORGES M.D. On: Jan 08 2016 1:02P Signed by: DESTINI Hays, ADRIAN Edward On: Jan 08 2016 1:02P ----- PHYSIC YISEL : ADRIAN GEORGES MD (Signa jabier on file) [facility] [address], [place], [address], 01/08/2016 14:38:05 06/05/19 18 06/05/2017 XR, knee, 4 or more view Gopal Monaein edna [place] Access ion Number : [id number] 1.9 Patimekhi t Name : Rashaad Enamoradoa l Record Number : [id number] Date of : 1975 Date of Exam : 2017 Referr ing Physic yisel : BRADLYVIRGILIO GARRIDOTRENTON Didier [facility] [address] [place] [address] Exam : CR - KNEE COMPLE TE 4 OR MORE VIEWS CPT 69403 - RIGHT Room Descri ption : [facility] [facility] XR Techni que : AP, Latera l, Sunris e, Tunnel Final Report HISTOR Y: Right knee pain. Compar kajal is made to right knee plain films from 2015. FINDIN GS and IMPRES KARLI: Total of 4 right knee plain films are provid ed. Fronta l views of the right knee shows medial joint space narrow ing with perhap s mild subcho ndral sclero sis. Latera l view does not show signif icant joint effusi on. Sunris e view does not show signif icant patell ar sublux ation. Findin gs appear simila r to 2015 plain films. ----- PHYSIC YISEL : RAZA LALA MD (Signa ture on file) 2017 [facility] [address], [place], [address], 06/05/2017 14:12:43 06/11/19 18 06/10/2017 MRI, knee, w/o contr ast [facility] [place] [facility] Access ion Number : [id number] 1.10 Patimekhi t Name : Rashaad Enamorado l Record Number : [id number] Date of : 1975 Date of Exam : 2017 Referr ing Physic yisel : BRADLYVIRGILIO GARRIDO TRENTON Did[facility] [address] [place] [address] Exam : MR - KNEE (C-) CPT 52240 - RIGHT Room Descri ption : [facility] Espr 2 1.5 Techni que : Ax PDFsat , Sag PD, Sag T2 FS,Cor PD FS, Cor T1 Final Report Histor y: knee pain Findin gs: COMPAR KAJAL: October 07, 2013 LATERA L MENISC US: I do not see eviden ce of a menisc al tear. The menisc al shape appear s normal . MEDIAL MENISC US: Stable appear ance of the talent coordinator ior horn of the medial menisc us compar ed to previo us examin ation may repres ent postsu rgical change . No new tear identi fied. LIGAME NTS: Crucia te Ligame nts: Normal Medial Collat eral Ligame nt:Nor mal Latera l Collat eral Ligame nt: Normal BONES/ CARTIL AGE: No eviden ce of fractu re or focal cartil age injury . EXTENS OR MECHAN ISM: The justin ceps tendon and patell ar ligame nt are intact . No retina cular disrup tion There is a tiny poplit eal cyst. Impres karli: 1. Stable appear ance of the talent coordinator ior horn of the medial menisc us compar ed to previo us examin ation. Possib le postsu rgical change . 2. No crucia te or collat eral ligame nt tears. 3. No osseou s or cartil aginou s abnorm ality. ----- PHYSIC YISEL : GAVIOTA MENDIETA MD (Signa ture on file) 2017 [facility] ([facility]) [address] [facility], [place], [address], 06/11/2017 12:04:41 Result Notes None recorded. 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 Shannon reed [facility] 5 12:37:25 Knee pain Active Jocelyn reed [facility] 6 11:49:20 Sprain of cruciate ligament of knee 34355065 Active Shannno reed [facility] 5 12:37:25 Complication of procedure 239002677 Active Not Available [facility] 3 03:01:23 Mechanical complication of internal orthopedic device, implant AND/OR graft 3588856 Active Not Available [facility] 3 03:01:23 Synovial plica 985594713 Active Not Available [facility] 3 03:01:23 Osteoarthriti s of knee 029333319 Active Yoko Seble reed [facility] 5 09:49:40 Osteochondrop athy 81596261 Active Not Available [facility] 3 03:01:23 Sprain of knee and leg Active Not Available [facility] 3 03:01:23 Current tear of medial cartilage AND/OR meniscus of knee Active Shannon reed [facility] 5 23:18:27 Problem Notes None recorded. Procedures Surgical History Date Name Laterality Status Provider Name and Address Organization Details Recorded Time 08/19/19 13 Orthopaedic Surgery completed Izabella Santos [facility] 08/28/2015 17:04:43 02/18/20 12 Orthopaedic Surgery completed Jabari Rapp [facility] 02/27/2012 12:23:25 02/06/20 11 Knee arthroscopy/nydia vashti completed Not Available [facility] 04/08/2011 20:06:35 07/04/19 11 Removal of implant deep completed Not Available [facility] 04/08/2011 20:06:35 12/13/19 10 Knee arthroscopy/nyida vashti completed Not Available [facility] 04/08/2011 20:06:44 06/20/19 10 Knee arthroscopy/nydia vashti completed Not Available [facility] 04/08/2011 20:06:35 Imaging Results Imaging Date Name Status LastModified by Organiz ation Details LastModified Time 09/22/2014 knees bilat 4 views each completed [facility] [address] [place], [address] 04/05/2015 04:01:03 09/22/2014 knees bilat 4 views each completed [facility] [address] [facility], [place], [address], 04/05/2015 04:01:03 09/22/2014 knees bilat 4 views each completed build [facility] [address], [place], [address] 04/05/2015 04:01:03 01/08/2016 img:[email or web address] completed [email or web address] [facility] [address], [place], [address] 01/08/2016 13:31:17 01/08/2016 XR, knee, 4 or more view completed [facility] [place] [address] , [place], [address], 01/08/2016 14:38:05 06/05/2017 XR, knee, 4 or more view completed [facility] [place] [address] , [place], [address], 06/05/2017 14:12:43 06/10/2017 MRI, knee, w/o contrast completed [facility] ([place] [facility]) [address], [place], [address], 06/11/2017 12:04:41 Procedure Notes None recorded. Medical Equipment None Reported. Allergies No known drug allergies Medications Name Sig Start Date Stop Date Status Note LastModified by Organization Details LastModified Time Prescript ion - Clarifica tion 06/05 completed Morphine Equlvale nt Dose Alert from [employer] Not Available Not Available Not Available celecoxib 200 mg capsule TK 1 C PO BID 06/05 completed Not Available Not Available Not Available amoxicill in 500 mg capsule TAKE ONE CAPSULE BY MOUTH EVERY 8 HOURS FOR 10 DAYS active Not Available Not Available No t Available bupropion HCl SR 150 mg tablet,12 hr sustained -release TK 1 T PO BID active Not Available Not Available No t Available naproxen 375 mg tablet TK 1 T PO BID PRN active Not Available Not Available No t Available clindamyc in HCl 300 mg capsule active Not Available Not Available Not Available trazodone 50 mg tablet TK 1 T PO HS active Not Available Not Available No t Available cetirizin e 10 mg tablet TK 1 T PO QD PRF ALLERGIE S 06/05 completed Not Available Not Available Not Available ibuprofen 800 mg tablet TK 1 T PO TID active Not Available Not Available No t Available penicilli n V potassium 500 mg tablet TK 1 T PO Q 12 H FOR 10 DAYS 06/05 completed Not Available Not Available Not Available oxycodone -acetamin ophen 5 mg-325 mg tablet Take 2 tablets every 8 hours by oral route as needed. active Not Available Not Available No t Available famotidin e 20 mg tablet TK 1 T PO Q 12 H FOR 5 DAYS 06/05 completed Not Available Not Available Not Available baclofen 10 mg tablet TAKE 1/2 TO 1 TABLET 3 TIMES A DAY active Not Available Not Available No t Available oxycodone 5 mg capsule TK 1 TO 2 CS PO Q 6 H PRN P 06/05 completed Not Available Not Available Not Available Mapap (acetamin ophen) 325 mg tablet TK 2 TS PO Q 6 H PRN P 06/05 completed Not Available Not Available Not Available ibuprofen 200 mg tablet 1 tablet as needed Orally every 6 hrs active Not Available Not Available No t Available gabapenti n 300 mg capsule TK ONE C PO BID active Not Available Not Available No t Available sertralin e 25 mg tablet TK 1 T PO QD active Not Available Not Available No t Available diclofena c sodium 75 mg tablet,de layed release TAKE 1 TABLET BY MOUTH 2 TIMES A DAY active Not Available Not Available No t Available hydroxyzi ne HCl 25 mg tablet TK 1 T PO QID FOR 7 DAYS PRF ITCHING 06/05 completed Not Available Not Available Not Available mupirocin 2 % topical ointment APPLY A SMALL AMOUT TO Q-TIP AND APPLY TO BOTH NOSTRILS BID FOR 5 DAYS 06/05 completed Not Available Not Available Not Available ibuprofen 600 mg tablet TK 1 T PO Q 6 H PRN P active Not Available Not Available No t Available zolpidem 10 mg tablet TK 1 T PO QD HS FOR 7 DAYS 06/05 completed Not Available Not Available Not Available nabumeton e 500 mg tablet active Not Available Not Available Not Available oxycodone 5 mg tablet TK 1 TO 2 TS PO Q 6 H PRN P 06/05 completed Not Available Not Available Not Available enoxapari n 30 mg/0.3 mL subcutane ous syringe INJECT THE CONTENTS OF 1 SYRINGE (30 MG) SUBCUTAN EOUSLY TWICE A DAY FOR POST-OP DVT FOR 2 WEEKS 06/05 completed Not Available Not Available Not Available Euflexxa 10 mg/mL (mw 2.4-3.6 million) intra-art icular syringe Inject 2 mL by intra-ar ticular route. 2017 active Not Available Not Available Not Avai lable ibuprofen active Not Available Not Jessica ilable Not Available Wellbutri n active Not Available Not Available Not Available oxycodone 10 mg tablet TK 1 T PO TID PRN P active Not Available Not Available No t Available oxycodone 5 mg tablet,or al ONLY (not feeding tubes) 1 tablet Orally every 6 hrs active Not Available Not Available No t Available Monovisc 88 mg/4 mL intra-art icular syringe Take 4 mL by intraart icular route. 06/05 completed Not Available Not Available Not Available OxyContin 10 mg tablet,cr ush resistant ,extended release 06/05 completed Not Available Not Available Not Available Vitals Date Recorded Body weight Body mass index (BMI) Provider Name and Address Organization Details Last Updated DateTime 05/29/2015 37234.21351 g 28.9 kg/m2 Not Available [facility] 01/06/2022 22:31:40 Date Recorded Body height Body mass index (BMI) Body weight Provider Name and Address Organization Details Last Updated DateTime 09/22/2014 180.34 cm 29.3 kg/m2 54179.3977 g [facility] 09/22/2014 12:04:40 Date Recorded Body height Body mass index (BMI) Body weight Provider Name and Address Organization Details Last Updated DateTime 01/05/2015 180.34 cm 29.3 kg/m2 86740.3977 g [facility] 01/05/2015 13:34:19 Date Recorded Body height Body mass index (BMI) Body weight Provider Name and Address Organization Details Last Updated DateTime 02/16/2015 180.34 cm 30 kg/m2 55041.37063 g Jeovany Benavides [facility] 02/16/2015 14:47:09 Date Recorded Body mass index (BMI) Body weight Body height Provider Name and Address Organization Details Last Updated DateTime 01/08/2016 30 kg/m2 50918.3595 5 g 180.34 cm Nahomi Valenzuela [facility] 01/08/2016 11:42:18 Date Recorded Body height Body mass index (BMI) Body weight Provider Name and Address Organization Details Last Updated DateTime 06/05/2017 180.34 cm 33.5 kg/m2 178510.17 g Lina Perryler [place] [facility] 06/05/2017 11:23:22 Social History Question Answer Notes LastModified by Organizat ion Details LastModified Time Tobacco Smoking Status Current Every Day Smoker 1/2 pack per day Barbie reed [place] [facility] 01/02/2012 10:22:36 What Is Your Level Of Alcohol Consumption? None Information not available 06/13/2011 Auto Related Injury? No Information not available 06/13/2011 What Is Your Level Of Caffeine Consumption? Moderate Information not available 06/13/2011 Have You Had Cortisone? No Information not available 06/13/2011 What Was The Date Of Your Most Recent Tobacco Screening? 06/05/2017 Information not available 11/19/2018 What Types Of Sporting Activities Do You Participate In? Walking Information not available 06/13/2011 Work Related Injury? Yes Information not available 06/13/2011 Sex: Unknown Functional Status Question Answer Note LastModified by Organizat ion Details LastModified Time What is your exercise level? Occasional Information not available 06/13/2011 Mental Status None recorded. Family History Nothing Reported. Medical History Condition Response HIV or AIDS N High Blood Pressure Y Irregular Heartbeat N MRSA N Weight Gain / Loss Y Hearing Loss N Angina, Heart Failure or Attack N Night Sweats N Seizures / Epilepsy N Osteoarthritis / Rheumatoid arthritis / Other N Cancer N Stroke N Ulcer / Stomach Bleeding / Indigestion N Visual Loss or Glaucoma N Blood Clots / Phlebitis N Heart Problems N Depression or Anxiety Y Emphysema / Chronic Bronchitis N Reaction to General/Local Anesthesia N Hepatitis / Jaundice N Kidney / Bladder Infections N Diabetes N Bleeding Disorder N Chemical Dependency / Alcoholism N Psoriasis / Skin Rash N Thyroid Disorder N Heart Disease N Asthma / Shortness of Breath / Sleep Binder Cutter ea (please specify) N Pulmonary Embolism N Past Encounters Encounter ID Performer Location Encounter Start Date Encounter Closed Date Diagnosis/Indication Diagnosis SNOMED-CT Code Diagnosis ICD10 Code Diagnosis Note [id number] [facility] [address] [facility], [address] [address] 03/30/2009 13:27:15 03/30/2009 16:45:18 [id number] [facility] [address] [place] [id number] 06/29/2009 10:15:35 06/29/2009 11:27:41 [id number] [facility] [address] [place] [address] 06/20/2009 00:03:10 06/20/2009 00:03:10 [id number] [facility] [address] [place] [id number] 08/28/2009 10:32:20 08/28/2009 12:12:31 [id number] [facility] [address] [place] [id number] 10/16/2009 10:19:50 10/18/2009 12:28:01 [id number] [facility] [address] [place] [address] 12/12/2009 00:03:06 12/12/2009 00:03:06 [id number] [facility] [address] [place] [id number] 12/25/2009 10:34:16 12/26/2009 06:23:05 [id number] [facility] [address] [place] [id number] 01/15/2010 14:14:57 01/15/2010 14:37:48 [id number] [facility] [address] [place] [id number] 02/26/2010 12:17:22 02/26/2010 14:17:58 [id number] [facility] [address] [place] [id number] 05/07/2010 13:15:36 05/07/2010 14:49:28 [id number] [facility] [address] [place] [address] 07/03/2010 00:03:01 07/03/2010 00:03:01 [id number] [facility] [address] [place] [id number] 07/10/2010 11:58:46 07/10/2010 13:33:32 [id number] [facility] [address] [place] [id number] 08/16/2010 12:31:09 08/16/2010 13:47:41 [id number] [facility] [address] [place] [id number] 2 10/22/2010 11:22:24 10/22/2010 11:52:33 [id number] [facility] [address] [place] [id number] 01/14/2011 12:40:56 01/14/2011 13:28:43 [id number] [facility] [address] [place] [id number] 02/05/2011 00:02:49 02/05/2011 00:02:50 [id number] [facility] [address] [place] [id number] 2 02/18/2011 11:34:18 02/18/2011 12:24:44 [id number] [facility] [address] [place] [id number] 2 03/28/2011 15:03:29 03/28/2011 15:26:23 [id number] [facility] [address] [place] [id number] 2 06/13/2011 13:27:51 06/13/2011 15:40:58 [id number] [facility] [address] [place] [id number] 09/26/2011 12:55:12 09/26/2011 13:58:18 [id number] [facility] [address] [place] [id number] 01/02/2012 09:44:06 01/02/2012 12:01:46 [id number] Trneton Macedo MD [facility] [address] [place] [id number] 2 02/27/2012 11:41:42 02/27/2012 12:38:40 [id number] Trenton Macedo MD [facility] Office [address] [place] [phone] 2 05/07/2012 10:34:14 05/07/2012 11:48:02 [id number] Barbie Pires [facility] Office [address] [place] [address] [phone] 2 08/31/2012 09:16:21 08/31/2012 10:31:28 [id number] Lupe Lny [facility] Office [address] [place] [address] [phone] 2 10/08/2012 11:41:59 10/08/2012 12:37:54 [id number] Svetlana Lopez [facility] Office [address] [place] [address] [phone] 2 12/10/2012 11:06:54 12/10/2012 11:40:27 [id number] [facility] [address] [place] [address] [phone] 2 04/22/2013 13:08:17 04/22/2013 16:48:54 Osteoarthritis of knee [id number] Svetlana Lopez [facility] Office [address] [place] [address] [phone] 2 06/01/2013 13:40:18 06/01/2013 14:03:57 Osteoarthritis of knee [id number] Svetlana Lopez [facility] Office [address] [place] [address] [phone] 2 06/08/2013 12:50:15 06/08/2013 14:10:38 Osteoarthritis of knee [id number] Svetlana Lopez [facility] Office [address] [place] [phone] 1 07/01/2013 09:07:37 07/01/2013 09:48:12 Osteoarthritis of knee [id number] [facility] [address] [place] [address] [phone] 2 09/16/2013 13:31:21 09/16/2013 14:44:05 Sprain of cruciate ligament of knee [id number] Old talent coordinator ior cruciate ligament disruption [id number] [facility] Office [address] [employer] [facility],[address] [phone] 11/11/2013 14:04:43 11/11/2013 14:40:07 Osteoarthritis of knee [id number] [employer] talent coordinator ior cruciate ligament disruption [id number] [facility] [address] [place] [address] [phone] 2 05/05/2014 12:57:48 05/05/2014 14:04:26 Osteoarthritis of knee [id number] Sprain of cruciate ligament of knee [id number] Current te ar of medial cartilage AND/OR meniscus of knee [id number] [employer] talent coordinator ior cruciate ligament disruption [id number] Barbie Pires [facility] Office [address] [facility],[address] [phone] 6 06/30/2014 14:17:06 06/30/2014 14:54:15 Osteoarthritis of knee [id number] [facility] [address] [place] [address] [phone] 2 09/22/2014 11:37:19 09/22/2014 13:17:00 Osteoarthritis of knee [id number] [facility] [address] [place] [address] [phone] 2 01/05/2015 13:19:01 01/05/2015 13:50:10 Sprain of cruciate ligament of knee [id number] [employer] talent coordinator ior cruciate ligament disruption [id number] Trenton Macedo MD [facility] [address] [place] [address] [phone] 2 02/16/2015 13:48:58 02/16/2015 15:11:33 Osteoarthritis of knee [id number] M17.2 [id number] Trenton Macedo MD [facility] [address] [place] [phone] 6 01/08/2016 11:26:53 01/08/2016 13:25:28 Osteoarthritis [id number] M17.32 [id number] Trenton Macedo MD [facility] [address] [place] [phone] 6 06/05/2017 10:44:19 06/05/2017 12:05:56 Knee pain [id number] M25.561 Health Concerns Section Related Observation LastModified by Organization Detai ls LastModified Time None Recorded Concern Status LastModified by Organization Details LastModified Time None Recorded Advance Directives Directive None Recorded Payers Encounter Date Sequence Insurance Name Policy Number Policy Serrato Covered Member ID Serrato Member ID Guarantor Name 09/22/2014 [employer] Rashaad Recchia 01/05/2015 [employer] Rashaad Recchia 02/16/2015 [employer] Rashaad Recchia 01/08/2016 [employer] Rashaad Recchia 06/05/2017 [employer] Rashaad Recchia Notes Date Note Type Note Provider Name and Address Organization Details Recorded Time 09/22/2014 text/html HPI DX: Post traumatic arthrosis both knees. HX: Rashaad is in today largely because he has had pain in his right leg. It seems to be shooting from the knee and actually above the knee down to the ankle on the outside. He attributes this to the issues with his knee from prior surgery. He continues to have his standard arthritic pain in both knees, left worse than right. ? Trenton Macedo MD [address] [place] [address], [place], [phone], [facility] 09/26/2014 09:25:02 01/05/2015 text/html HPI DX: Significant post-traumatic arthrosis of the left knee. HX: Rashaad continues to have progressively increasing problems with pain in this left knee. It remains unstable with ACL, PCL out. Pain is global. Instability is not the issue, it? s all pain. ? Trenton Macedo MD [address] [place] [address], [phone], [facility] 01/06/2015 13:11:34 02/16/2015 text/html HPI DIAGNOSIS: Post traumatic arthrosis both knees. HISTORY: Rashaad has been approved for the Monovisc injections. Symptoms are unchanged. He has significantly more pain left than right. ? Trenton Macedo MD [address] [place] [address], [phone], [facility] 02/20/2015 13:24:20 01/08/2016 text/html HPI DX: Post-traumatic arthrosis left knee. HX: Rashaad is still having persistent symptoms. He has been unable to coordinate between Worker? s Compensation and Dr. Edwards? office. He has identified a pain center out at [facility], which he can use for pain management post surgery. ? Trenton Macedo MD [address] [place] [address], [phone], [facility] 01/10/2016 09:33:31 06/05/2017 text/html DX: Question of re-tear, medial meniscus of the right knee. HX: Rashaad is known to me long-term; I did a partial medial meniscectomy on that knee seven years ago. Over the last several months he has had progressing increasing medial knee pain with weight bearing. No mechanical symptoms, although occasional catching. He also notes a little bit of swelling from time to time. He has had no specific treatment to date. Of note, he had his knee replaced on the contralateral side and is still having some difficulties with that. Trenton Macedo MD [address] [place] [address], [phone], [facility] 06/07/2017 07:35:02
[2024-08-20 21:48] VITALS: BP 134/85; PULSE 101; RESP 16; TEMP 36.3; O2SAT 98
[2024-08-20 22:13] VITALS: BP 134/85; PULSE 101; RESP 16; TEMP 36.3; O2SAT 98
--- NOTE | 2024-08-20 22:14 | PC.NURSE ---
Splint applied to right 3rd finger for an avulsion fx.
== END 2024-08-20 22:15 | disposition home or self-care (01) ==
PROVIDERS: Emergency Provider Internal Medicine; PCP Family Medicine
DX: S62.632A Displaced fracture of distal phalanx of right middle finger, initial encounter for closed fracture (principal); W23.1XXA Caught, crushed, jammed, or pinched between stationary objects, initial encounter; M79.672 Pain in left foot; Y93.89 Activity, other specified; Y92.9 Unspecified place or not applicable; Y99.9 Unspecified external cause status
CPT/HCPCS: 29130; 73140; 73610; 73630; 99283; 99284

== ENCOUNTER → 2024-08-20 20:07 | Outpatient (BNV) | payer OTHER, SELFPAY | PROVIDERS: Emergency Provider Internal Medicine; PCP Family Medicine; Visit Provider Radiology Diagnostic Radiology | DX: M25.572 Pain in left ankle and joints of left foot (principal); R22.42 Localized swelling, mass and lump, left lower limb; S62.632A Displaced fracture of distal phalanx of right middle finger, initial encounter for closed fracture | CPT/HCPCS: 73140; 73610; 73630 ==